=== PATIENT | female | born 1945 | race Caucasian/White ===

== ENCOUNTER 2018-06-12 16:34 | Inpatient (IN) ==
--- NOTE | 2018-06-12 17:32 | XRay Report ---
XR chest 1V portable CLINICAL HISTORY: ?illness COMPARISON STUDY: Chest radiograph May 12, 2018 p.m. FINDINGS: Calcified granuloma within the lingula is noted. Mild cardiomegaly is noted. There is no ev idence for pulmonary edema. Left basilar opacity is unchanged and favors atelectasis. The appearance of the chest is unchanged. IMPRESSION: No acute cardiopulmonary findings. No change in appearance of the chest. Electronically signed by: Layton Brady M.D. 06/12/2018 5:30 PM
[2018-06-12 18:36] LABS: Hematocrit (blood only) 27.6 % (37-47); Mean Corpuscular Hgb Conc 32.6 g/dL (32-36); Mean Corpuscular Volume 93.9 fL (80-100); Nucleated RBC # (auto) 0.18 K/uL (0-0); Nucleated RBC % (auto) 2.2 %; RDW Coefficient of Variation 18.8 % (11.5-14.5); RDW Standard Deviation 52.8 fL (36.4-46.3); Red Blood Count 2.94 M/uL (4.2-5.4); White Blood Count 7.82 K/uL (4.8-10.8)
[2018-06-12 19:02] LABS: Albumin Globulin Ratio 0.7 (0.9-2); Albumin Level 1.9 gm/dl (3.4-5.0); BUN Creatinine Ratio 21.2 (10-20); Bilirubin,Total 0.6 mg/dl (0.2-1); Calcium 5.7 mg/dl (8.5-10.1); Creatinine Clr Calc Pharmacy 44.5 ml/min; Est GFR (African American) 44.5; Est GFR (Non-African American) 38.4; Globulin 2.8 gm/dl (2.5-4.0); Potassium 3.4 mmol/L (3.5-5.1); Total Protein 4.7 gm/dl (6.4-8.2); Troponin I 0.13 ng/ml (0-0.045)
[2018-06-12 19:37] LABS: Beta-Hydroxybutyrate 12.01 mg/dl (0.2-2.81)
[2018-06-12 19:42] LABS: Mean Platelet Volume 9.6 fL (7.4-10.4); Platelet Count 71 K/uL (130-400)
[2018-06-12 19:43] LABS: Immature Granulocytes # (auto) 0.07 K/uL (0.00-0.02); Immature Granulocytes % (auto) 0.9 %; Lymphocytes # (auto) 0.32 K/uL (1.2-3.4); Lymphocytes % (auto) 4.1 %; Monocytes # (auto) 0.42 K/uL (0.11-0.59); Monocytes % (auto) 5.4 %; Neutrophils # (auto) 7.01 K/uL (1.4-6.5); Neutrophils % (auto) 89.6 %; Polychromasia 1+; Spherocytes 1+
--- NOTE | 2018-06-12 19:54 | Emergency Department Note ---
Entered by Brian Forrest acting as a scribe for History of Present Illness General Chief complaint: Weakness Stated complaint: WEAKNESS, MENTAL STATUS CHANGE, CELLULITIS IN LEG, Source: patient History of Present Illness Provider complaint: Weakness Onset (ago): day(s) Location: lower extremity Radiation: non-radiation Severity: moderate Pain Consistency: + constant Maximum Pain Intensity: 9 Quality: + burning Relieved By: + none Associated symptoms: + weakness The patient is a 72 year old female who presents to the Emergency Room with complaints of generalized weakness that started over the past couple of days. The patient reports a history of Leukemia and states that she had a blood transfusion three days ago and is regularly doing chemotherapy. She further reports that she had a sore throat, a cough, and is congested, but denies any episodes of vomiting, fevers, chest pain, or abdominal pain. The patient states that she has cellulitis of her right leg, but states that her left leg is also very tender and red. She is not sure she is on any antibiotics for this. Home Medications Home Medications Medication Instructions Recorded Confirmed Type atorvastatin 40 mg PO HS 04/05/18 06/12/18 History fluticasone-salmeterol [Advair 1 inh INHALATION BID 04/05/18 06/12/18 History Diskus] omeprazole 20 mg PO BID 04/05/18 06/12/18 History tramadol 50 mg PO Q6H PRN 04/05/18 06/12/18 History acyclovir 400 mg PO BID 06/09/18 06/12/18 History allopurinol 300 mg PO DAILY 06/09/18 06/12/18 History bumetanide 1 mg PO BID 06/09/18 06/12/18 History fluconazole 400 mg PO DAILY 06/09/18 06/12/18 History insulin aspart U-100 6 units SUBCUT TIDM 06/09/18 06/12/18 History insulin detemir U-100 [Levemir 14 units SUBCUT QPM 06/09/18 06/12/18 History FlexTouch U-100 Insuln] insulin detemir U-100 [Levemir 18 units SUBCUT QAM 06/09/18 06/12/18 History U-100 Insulin] metoprolol succinate 25 mg PO DAILY 06/09/18 06/12/18 History nitroglycerin [Nitrostat] 0.4 mg SUBLINGUAL DIRECTED PRN 06/09/18 06/12/18 History albuterol sulfate 2 puff INHALATION Q6H PRN 06/12/18 06/12/18 History dapsone 100 mg PO DAILY 06/12/18 06/12/18 History dasatinib [Sprycel] 70 mg PO BID 06/12/18 06/12/18 History dextrose [Glutose 15] 1 ea PO DIRECTED PRN 06/12/18 06/12/18 History escitalopram oxalate 5 mg PO DAILY 06/12/18 06/12/18 History ry-[id number] carb-vit K 1 tab PO DAILY 06/12/18 06/12/18 History [Women's Multivitamin] prednisone See Label Instructions .ROUTE 06/12/18 06/12/18 History .COMPLEX Allergies Allergy/AdvReac Type Severity Reaction Status Date / Time No Known Allergies Allergy Verified 06/12/18 17:53 Past Med/Surg History Medical History Ovarian cyst EKG abnormalities (Acute) Diabetes mellitus, type II (Chronic) GERD (gastroesophageal reflux disease) (Chronic) Diabetes mellitus Family History Other Family history non-contributory Social History Feels Safe at Home: Yes Smoking Status: Former smoker Preferred Language: Serbian Communication Ability: Effective Visual Impairment: No Limitations Hearing Ability: Normal Review of Systems See HPI for pertinent positives & negatives. and A total of 10 systems reviewed and were otherwise negative Physical Exam Vital Signs Vital Signs - 24 hr 06/12/18 16:32 06/12/18 16:41 06/12/18 16:46 Temperature 36.8 C Temperature Source Oral Sepsis Recent Fever Within 48 Hours No Sepsis New/Unexplained Change in Mental Status Yes Sepsis Action Taken by Nursing No Action Required Pulse Rate 85 80 91 H Pulse Rate [Apical] Respiratory Rate 20 18 21 Respiratory Effort / Characteristics Non-Labored Respiratory Depth Normal Respiratory Pattern Regular Blood Pressure 152/65 H 152/65 H Blood Pressure [Right Arm] Blood Pressure Mean 94 94 Blood Pressure Mean [Right Arm] Pulse Oximetry 96 96 96 Oxygen Delivery Method Nasal Cannula Oxygen Flow Rate 2 06/12/18 17:00 06/12/18 17:30 06/12/18 17:32 Temperature Temperature Source Sepsis Recent Fever Within 48 Hours Sepsis New/Unexplained Change in Mental Status Sepsis Action Taken by Nursing Pulse Rate 85 84 Pulse Rate [Apical] Respiratory Rate 17 18 Respiratory Effort / Characteristics Respiratory Depth Respiratory Pattern Blood Pressure Blood Pressure [Right Arm] Blood Pressure Mean Blood Pressure Mean [Right Arm] Pulse Oximetry 97 98 96 Oxygen Delivery Method Nasal Cannula Oxygen Flow Rate 2 06/12/18 18:00 06/12/18 18:30 06/12/18 19:02 Temperature Temperature Source Sepsis Recent Fever Within 48 Hours Sepsis New/Unexplained Change in Mental Status Sepsis Action Taken by Nursing Pulse Rate 81 85 Pulse Rate [Apical] 87 Respiratory Rate 14 17 Respiratory Effort / Characteristics Respiratory Depth Respiratory Pattern Blood Pressure Blood Pressure [Right Arm] 137/71 Blood Pressure Mean Blood Pressure Mean [Right Arm] 93 Pulse Oximetry Oxygen Delivery Method Oxygen Flow Rate Constitutional: Vital signs reviewed. Eyes: Pupils are equal round reactive to light. Conjunctiva are noninjected. ENT: Pharynx is clear without erythema or exudate. Mucous membranes are dry. Neck supple without meningeal signs. Respiratory: Clear to auscultation bilaterally. Breath sounds are equal bilaterally. Cardiovascular: Regular rate and rhythm. No rubs or gallops. GI: Soft, nondistended and nontender. Bowel sounds are present. Musculoskeletal: Erythema and increased warmth to the right lower extremity extending up to the knee. Mild erythema to the left lower extremity. Integumentary: No cyanosis. or jaundice. Cellulitis as above. Neurological: The patient is awake and alert. No focal deficits. Psychiatric: Normal affect. Not anxious appearing. Course 173: Past medical records reviewed. The patient was evaluated in room B8, and a complete history and physical examination were performed. 7: I discussed the test results with the patient. She denies any chest pain. She is agreeable with the treatment plan. 1908: I reviewed the patient's case with RAFFI Scott. She and her attending[facility] Shields[facility], will evaluate the patient for further management. Consultations Consultation #1: RAFFI Scott Time: 19:09 Administered Medications Discontinued Medications Sodium Chloride (Nss) 500 mls @ 999 mls/hr IV .Q31M STA Stop: 06/12/18 17:32 Last Admin: 06/12/18 18:08 Dose: Not Given Sodium Chloride (Nss) 500 mls @ 999 mls/hr IV .Q31M MOIRA Stop: 06/12/18 18:15 Last Infusion: 06/12/18 18:54 Dose: 0 mls/hr Admin: 06/12/18 18:27 Dose: 999 mls/hr Vancomycin HCl 2,000 mg/ (Sodium Chloride) 540 mls @ 200 mls/hr IV NOW ONE Stop: 06/12/18 20:31 Last Admin: 06/12/18 18:27 Dose: 200 mls/hr Calcium Gluconate 1,000 mg/ (Sodium Chloride) 60 mls @ 240 mls/hr IV NOW STA Stop: 06/12/18 19:20 Last Infusion: 06/12/18 19:49 Dose: 0 mls/hr Admin: 06/12/18 19:30 Dose: 240 mls/hr Medical Decision Making Differential Diagnosis Differential: Cellulitis, neutropenia, anemia, metabolic derangement, bactermia Medical Records Attestation: I reviewed the patient's medical records. Home Medications Current Medication List: was personally reviewed by me Laboratory Data Attestation: I reviewed the patient's lab results. Result diagrams: 06/12/18 17:55 06/12/18 17:55 Lab Results 06/12/18 06/12/18 06/12/18 Range/Units 17:55 17:55 18:15 WBC 7.82 (4.8-10.8) K/uL RBC 2.94 L (4.2-5.4) M/uL Hgb 9.0 L (12.0-16.0) g/dL Hct 27.6 L (37-47) % MCV 93.9 (80-100) fL MCH 30.6 (25-34) pg MCHC 32.6 (32-36) g/dL RDW Std Deviation 52.8 H (36.4-46.3) fL RDW Coeff of Yariel 18.8 H (11.5-14.5) % Plt Count 71 L (130-400) K/uL MPV 9.6 (7.4-10.4) fL Immature Gran % (Auto) 0.9 % Neut % (Auto) 89.6 % Lymph % (Auto) 4.1 % Esmeralda % (Auto) 5.4 % Eos % (Auto) 0.0 % Baso % (Auto) 0.0 % Immature Gran # (Auto) 0.07 H (0.00-0.02) K/uL Neut # (Auto) 7.01 H (1.4-6.5) K/uL Lymph # (Auto) 0.32 L (1.2-3.4) K/uL Esmeralda # (Auto) 0.42 (0.11-0.59) K/uL Eos # (Auto) 0.00 (0-0.5) K/uL Baso # (Auto) 0.00 (0-0.2) K/uL Absolute Nucleated RBC 0.18 H (0-0) K/uL Nucleated RBC % (auto) 2.2 % Polychromasia 1+ Spherocytes 1+ Sodium 139 (136-145) mmol/L Potassium 3.4 L (3.5-5.1) mmol/L Chloride 101 (98-107) mmol/L Carbon Dioxide 28 (21-32) mmol/L Anion Gap 10.0 (3-11) BUN 29 H (7-18) mg/dl Creatinine 1.38 H (0.6-1.2) mg/dl Est Cr Clr Drug Dosing 44.5 ml/min Est GFR ( Amer) 44.5 Est GFR (Non-Af Amer) 38.4 BUN/Creatinine Ratio 21.2 H (10-20) Glucose 315 H (70-99) mg/dl Lactate 1.3 (0.4-2.0) mmol/L Calcium 5.7 L* (8.5-10.1) mg/dl Total Bilirubin 0.6 (0.2-1) mg/dl AST 104 H (15-37) U/L ALT 145 H (12-78) U/L Alkaline Phosphatase 137 H (45-117) U/L Troponin I 0.130 H* (0-0.045) ng/ml Total Protein 4.7 L (6.4-8.2) gm/dl Albumin 1.9 L (3.4-5.0) gm/dl Globulin 2.8 (2.5-4.0) gm/dl Albumin/Globulin Ratio 0.7 L (0.9-2) Beta-Hydroxybutyric Acd 12.01 H (0.2-2.81) mg/dl Imaging Data Radiologist's Impression: Radiology results as stated below per my review and the radiologist's interpretation: XR chest 1V portable CLINICAL HISTORY: ?illness COMPARISON STUDY: Chest radiograph May 12, 2018 p.m. FINDINGS: Calcified granuloma within the lingula is noted. Mild cardiomegaly is noted. There is no evidence for pulmonary edema. Left basilar opacity is unchanged and favors atelectasis. The appearance of the chest is unchanged. IMPRESSION: No acute cardiopulmonary findings. No change in appearance of the chest. Electronically signed by: Layton Brady M.D. 06/12/2018 5:30 PM ECG Data Attestation: I personally reviewed and interpreted this ECG as follows: Indication: weakness Rate (beats per minute): 85 Rhythm: normal sinus Findings: + other (QTC is 461 miliseconds); no ST elevation Blood Pressure Blood Pressure Findings: Elevated blood pressure Blood Pressure Disposition: Referred to patients primary care provider MDM Narrative I did perform a limited focused review of portions of the patient's old chart on the electronic medical record. The patient was seen here in April for abdominal pain and was diagnosed with neutropenia, thrombocytopenia, splenomegaly, and right ovarian lesion. I did evaluate the patient as noted above. She is presenting with generalized weakness. She also has cellulitis to her legs. She has a history of a LL and is on chemotherapy. IV access was established. The patient was placed on a continuous rn cardiac. I did order and personally review the patient's 12- lead EKG and chest x-ray as described above. Her twelve-lead EKG does not demonstrate any acute ischemia. Her chest x-ray does not show a pneumonia. I did order and review the patient's blood work as noted in the electronic medical record. She is anemic and thrombocytopenic. She is not neutropenic. She does have a very low calcium and was given IV calcium. Creatinine is slightly elevated. Troponin is also elevated. She denies any chest pain or shortness of breath. I did order blood cultures and treated the patient with vancomycin IV. I did discuss the test results with the patient. I did discuss the case with the hospitalist and case operator. Impression & Plan Cellulitis of leg, right, Anemia, Cellulitis of left leg, Thrombocytopenia, Elevated troponin, Hypocalcemia Discharge Plan Visit Data Chief Complaint: Weakness Stated Complaint: WEAKNESS, MENTAL STATUS CHANGE, CELLULITIS IN LEG, ED Provider: Dillon Mccollum Discharge Problem: Cellulitis of leg, right, Anemia, Cellulitis of left leg, Thrombocytopenia, Elevated troponin, Hypocalcemia Forms Stand Alone Forms: [facility] Prescriptions Prescriptions: No Action atorvastatin 40 mg Tablet 40 mg PO HS RF: 0 fluticasone-salmeterol [Advair Diskus] 250-50 mcg/dose Blister With Device 1 inh INHALATION BID RF: 0 tramadol 50 mg Tablet 50 mg PO Q6H PRN (Reason: Pain) RF: 0 omeprazole 20 mg Capsule,Delayed Release(Dr/Ec) 20 mg PO BID RF: 0 acyclovir 400 mg Tablet 400 mg PO BID RF: 0 allopurinol 300 mg Tablet 300 mg PO DAILY RF: 0 fluconazole 200 mg Tablet 400 mg PO DAILY RF: 0 nitroglycerin [Nitrostat] 0.4 mg Tablet, Sublingual 0.4 mg Sublingual DIRECTED PRN (Reason: Chest Pain) RF: 0 bumetanide 1 mg Tablet 1 mg PO BID RF: 0 metoprolol succinate 25 mg Tablet Extended Release 24 Hr 25 mg PO DAILY RF: 0 insulin aspart U-100 100 unit/mL Cartridge 6 units SUBCUT TIDM RF: 0 insulin detemir U-100 [Levemir U-100 Insulin] 100 unit/mL Solution 18 units SUBCUT QAM RF: 0 insulin detemir U-100 [Levemir FlexTouch U-100 Insuln] 100 unit/mL (3 mL) Insulin Pen 14 units SUBCUT QPM RF: 0 dextrose [Glutose 15] 40 % Gel 1 ea PO DIRECTED PRN (Reason: Hypoglycemia) RF: 0 escitalopram oxalate 5 mg Tablet 5 mg PO DAILY RF: 0 tc-dl-xrod-FA-Ca carb-vit K [Women's Multivitamin] 18 mg iron-400 mcg-500 mg Tablet 1 tab PO DAILY RF: 0 dasatinib [Sprycel] 70 mg Tablet 70 mg PO BID RF: 0 prednisone 20 mg Tablet See Label Instructions .ROUTE .COMPLEX RF: 0 dapsone 100 mg Tablet 100 mg PO DAILY RF: 0 albuterol sulfate 90 mcg/actuation Hfa Aerosol Inhaler 2 puff INHALATION Q6H PRN (Reason: Shortness Of Breath) RF: 0 The scribe's documentation has been prepared under my direction and personally reviewed by me in its entirety. I confirm that the note above accurately reflects all work, treatment, procedures, and medical decision making performed by me.
--- NOTE | 2018-06-12 20:55 | History & Physical Report ---
Date of Service June 12, 2018 Assessment & Plan (1) Cellulitis, leg: -Admit to telemetry -Patient presenting to the ED from home for evaluation of generalized weakness, lower extremity redness -Recent events as outlined in HPI -In the ED, found to have some lower extremity redness, right greater than left -Afebrile, no leukocytosis or leukopenia -S/P Vanco in the ED however will change to daptomycin due to CKD and also add Zosyn due to immunocompromised state with ALL -No open areas or drainage to culture at this time -Blood cultures obtained in ED (2) Elevated troponin: -Troponin 0.130 -No reports of chest pain, EKG without acute ST changes -Continue cycle cardiac enzymes, consider further workup if significant elevation (3) Hypocalcemia: -Corrected calcium 7.4 -Received calcium 1 g IV in the ED -Follow calcium levels (4) Hypokalemia: -Potassium 3.4 -Replace, follow electrolytes -Noted normal magnesium (5) ALL (acute lymphoblastic leukemia): -Recent diagnosis [place] [facility]Started on prednisone and oral Sprycel -Was to start Rituxan and intrathecal chemotherapy treatments as an outpatient however due to transportation/safety issues the patient leaving home, these have not been started yet -Continue Sprycel and prednisone as per taper instructions (6) Anemia: (7) Thrombocytopenia: -Hgb 9.0, platelets 71 -Due to underlying ALL -Received PRBC transfusion on 06/09 -Monitor CBC daily (8) Diarrhea: -Check for C. difficile (9) DM type 2 (diabetes mellitus, type 2): -Hgb A1c 7.7 04/2018 -Continue Lantus and NovoLog per protocol while hospitalized (10) Leg edema: -During recent admission [facility] [place], patient developed anasarca and leg edema and was started on Bumex 1 mg twice daily -Patient with lower extremity edema on exam today however weight is noted to be down 9kg since 05/30 -Hypoalbuminemia and decreased mobility likely contributing to edema -For now will continue with Bumex 1 mg twice daily (11) CKD (chronic kidney disease), stage III: - baseline creat runs in the mid 1's - creat noted to be 1.3 today - continue to monitor, avoid nephrotoxic agents when able (12) Moderate COPD (chronic obstructive pulmonary disease): -No signs of acute exacerbation -Continue home inhalers (13) Hypertension: -BP controlled, continue metoprolol (14) Dyslipidemia: -hold statin while on daptomycin (15) GERD (gastroesophageal reflux disease): -Continue PPI (16) DVT prophylaxis: -SCDs due to anemia/thrombocytopenia (17) Discharge planning issues: -Patient currently enrolled in [facility] -Review of outpatient caseworker notes show that they have been attempting to get patient SNF placement however awaiting for assistance program for Sprycel to be approved -PT/OT evaluations, case management consult History of Present Illness Chief Complaint: Generalized weakness Primary Care Provider: Natalia Brambila 72-year-old female who presents to the ED for evaluation of generalized weakness. 1 month ago, patient was transferred from [facility] to [facility] for suspected onset of acute leukemia. 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 Treatment was started with prednisone and oral Sprycel. Patient was to also start Rituxan however due to transportation issues, those treatments have not been started yet. Also while at [facility], patient developed anasarca and FREDDY on CKD and was initially treated with a Lasix drip which was transitioned to oral Bumex at discharge. Olmesartan was discontinued. Patient also had a Klebsiella UTI which was treated with Levaquin. Per review of outpatient notes, patient appears to have been generally weak since arriving home. There have been several transportation/safety concerns about her leaving her home to get her Rituxan treatments, lab work, blood transfusions. Patient did receive blood transfusion at [facility] on 06/09. Patient was evaluated at home by a [facility] RN on 06/10. At that time, patient was noted to have some right lower extremity redness. Antibiotics were not started and reddened area was outlined for continued observation. Home health went to patient's home today to try to obtain lab work. Patient was unable to get out of bed and found to be incontinent of urine and stool. Patient was subsequently sent to the ED for further evaluation. At the time my exam, patient does not offer much history. She states, "I do not know why everyone keeps asking me so many questions I do not know the answers to." She is unclear what medication she is currently taking and states , "They got me someone to organize my pills and I take whatever is in my pillbox." She reports that she has been generally weak and unable to get up. She reports she developed diarrhea a couple of days ago. No abdominal pain, nausea, or vomiting. Appetite has been poor. She denies chest pain or shortness of breath. No lightheadedness, dizziness, diaphoresis, syncopal events. She denies fevers and chills. No urinary symptoms. In the ED, patient is found to have some redness to the bilateral lower extremities, right greater than left. She is hemodynamically stable. Labs demonstrate anemia and thrombocytopenia however improved from a recent baseline. Calcium 5.7 ( corrected to 7.4 for hypoalbuminemia). Troponin 0.130, EKG without acute ST changes. She was given calcium 1 g, IVF, IV Vanco. Allergies Allergy/AdvReac Type Severity Reaction Status Date / Time No Known Allergies Allergy Verified 06/12/18 17:53 Home Medications Home Medications Medication Instructions Recorded Confirmed Type atorvastatin 40 mg PO HS 04/05/18 06/12/18 History fluticasone-salmeterol [Advair 1 inh INHALATION BID 04/05/18 06/12/18 History Diskus] omeprazole 20 mg PO BID 04/05/18 06/12/18 History tramadol 50 mg PO Q6H PRN 04/05/18 06/12/18 History acyclovir 400 mg PO BID 06/09/18 06/12/18 History allopurinol 300 mg PO DAILY 06/09/18 06/12/18 History bumetanide 1 mg PO BID 06/09/18 06/12/18 History fluconazole 400 mg PO DAILY 06/09/18 06/12/18 History insulin aspart U-100 6 units SUBCUT TIDM 06/09/18 06/12/18 History insulin detemir U-100 [Levemir 14 units SUBCUT QPM 06/09/18 06/12/18 History FlexTouch U-100 Insuln] insulin detemir U-100 [Levemir 18 units SUBCUT QAM 06/09/18 06/12/18 History U-100 Insulin] metoprolol succinate 25 mg PO DAILY 06/09/18 06/12/18 History nitroglycerin [Nitrostat] 0.4 mg SUBLINGUAL DIRECTED PRN 06/09/18 06/12/18 History albuterol sulfate 2 puff INHALATION Q6H PRN 06/12/18 06/12/18 History dapsone 100 mg PO DAILY 06/12/18 06/12/18 History dasatinib [Sprycel] 70 mg PO BID 06/12/18 06/12/18 History dextrose [Glutose 15] 1 ea PO DIRECTED PRN 06/12/18 06/12/18 History escitalopram oxalate 5 mg PO DAILY 06/12/18 06/12/18 History mo-ab-bpyv-FA-Ca carb-vit K 1 tab PO DAILY 06/12/18 06/12/18 History [Women's Multivitamin] prednisone See Label Instructions .ROUTE 06/12/18 06/12/18 History .COMPLEX Past Med/Surg History Medical History Lumbar disc disease (Chronic) Tobacco use (Resolved) Depression (Chronic) Splenomegaly (Chronic) ALL (acute lymphoblastic leukemia) (Chronic) Osteoarthritis (Chronic) GERD (gastroesophageal reflux disease) (Chronic) Nocturnal hypoxia (Chronic) Moderate COPD (chronic obstructive pulmonary disease) (Chronic) CKD (chronic kidney disease), stage III (Chronic) Dyslipidemia (Chronic) Hypertension (Chronic) DM type 2 (diabetes mellitus, type 2) (Chronic) Diabetes mellitus, type II (Inactive) EKG abnormalities (Inactive) GERD (gastroesophageal reflux disease) (Inactive) Ovarian cyst (Inactive) Diabetes mellitus Surgical History H/O tubal ligation (Chronic) History of cholecystectomy (Chronic) Social History Current Living Situation: Alone Other Information That Helps Us Care for You: No Feels Safe at Home: Yes Smoking Status: Former smoker Hx Alcohol Use: No Hx Substance Use: No Beliefs That Will Affect Care: None Preferred Language: Bangladeshi Communication Ability: Effective Visual Impairment: No Limitations Hearing Ability: Normal Review of Systems Reviewed with patient however she does not offer much history Physical Exam 2 Vital Signs (Past 24 Hours): Last Vital Signs Temp 37.0 C 06/12/18 20:30 Pulse 92 H 06/12/18 20:30 Resp 20 06/12/18 20:30 BP 132/69 06/12/18 20:30 Pulse Ox 96 06/12/18 20:30 Constitutional: WD/WN, vitals as above Eyes: PERRL, conjunctivae normal, anicteric sclerae ENMT: external ear and nose normal, oropharynx normal Respiratory: normal respiratory effort; no respiratory distress Auscultation: + diminished lung sounds Cardiovascular: Rate/Rhythm: regular rate and regular rhythm Vessels: normal peripheral pulses Extremities: + edema (+3 pitting edema BLE) Gastrointestinal (Abdomen): normal bowel sounds, soft, nontender, no hepatosplenomegaly Musculoskeletal: Extremities: + abnormal strength (Patient generally weak ( strength 3-4/5) throughout all extremities), no cyanosis and no clubbing Skin: Mild redness noted to BLE, right greater than left; right lower extremity warm to touch Neurologic: PERRL, EOMI, accommodation nl, no face palsy, no dysarthria Psychiatric: Orientation: alert and oriented x 3 Affect: + depressed affect Insight: + poor insight Results & Data Laboratory Results Laboratory Last Values WBC 7.82 K/uL (4.8-10.8) 06/12/18 17:55 RBC 2.94 M/uL (4.2-5.4) L 06/12/18 17:55 Hgb 9.0 g/dL (12.0-16.0) L 06/12/18 17:55 Hct 27.6 % (37-47) L 06/12/18 17:55 MCV 93.9 fL (80-100) 06/12/18 17:55 MCH 30.6 pg (25-34) 06/12/18 17:55 MCHC 32.6 g/dL (32-36) 06/12/18 17:55 RDW Std Deviation 52.8 fL (36.4-46.3) H 06/12/18 17:55 RDW Coeff of Yariel 18.8 % (11.5-14.5) H 06/12/18 17:55 Plt Count 71 K/uL (130-400) L 06/12/18 17:55 MPV 9.6 fL (7.4-10.4) 06/12/18 17:55 Immature Gran % (Auto) 0.9 % 06/12/18 17:55 Neut % (Auto) 89.6 % 06/12/18 17:55 Lymph % (Auto) 4.1 % 06/12/18 17:55 [place] % (Auto) 5.4 % 06/12/18 17:55 Eos % (Auto) 0.0 % 06/12/18 17:55 Baso % (Auto) 0.0 % 06/12/18 17:55 Immature Gran # (Auto) 0.07 K/uL (0.00-0.02) H 06/12/18 17:55 Neut # (Auto) 7.01 K/uL (1.4-6.5) H 06/12/18 17:55 Lymph # (Auto) 0.32 K/uL (1.2-3.4) L 06/12/18 17:55 [place] # (Auto) 0.42 K/uL (0.11-0.59) 06/12/18 17:55 Eos # (Auto) 0.00 K/uL (0-0.5) 06/12/18 17:55 Baso # (Auto) 0.00 K/uL (0-0.2) 06/12/18 17:55 Absolute Nucleated RBC 0.18 K/uL (0-0) H 06/12/18 17:55 Nucleated RBC % (auto) 2.2 % 06/12/18 17:55 Polychromasia 1+ 06/12/18 17:55 Spherocytes 1+ 06/12/18 17:55 Sodium 139 mmol/L (136-145) 06/12/18 17:55 Potassium 3.4 mmol/L (3.5-5.1) L 06/12/18 17:55 Chloride 101 mmol/L (98-107) 06/12/18 17:55 Carbon Dioxide 28 mmol/L (21-32) 06/12/18 17:55 Anion Gap 10.0 (3-11) 06/12/18 17:55 BUN 29 mg/dl (7-18) H 06/12/18 17:55 Creatinine 1.38 mg/dl (0.6-1.2) H 06/12/18 17:55 Est Cr Clr Drug Dosing 44.5 ml/min 06/12/18 17:55 Est GFR ( Amer) 44.5 06/12/18 17:55 Est GFR (Non-Af Amer) 38.4 06/12/18 17:55 BUN/Creatinine Ratio 21.2 (10-20) H 06/12/18 17:55 Glucose 315 mg/dl (70-99) H 06/12/18 17:55 Lactate 1.3 mmol/L (0.4-2.0) 06/12/18 18:15 Calcium 5.7 mg/dl (8.5-10.1) L* 06/12/18 17:55 Phosphorus 3.9 mg/dl (2.5-4.9) 06/12/18 17:55 Magnesium 2.1 mg/dl (1.8-2.4) 06/12/18 17:55 Total Bilirubin 0.6 mg/dl (0.2-1) 06/12/18 17:55 AST 104 U/L (15-37) H 06/12/18 17:55 ALT 145 U/L (12-78) H 06/12/18 17:55 Alkaline Phosphatase 137 U/L (45-117) H 06/12/18 17:55 Troponin I 0.130 ng/ml (0-0.045) H* 06/12/18 17:55 Total Protein 4.7 gm/dl (6.4-8.2) L 06/12/18 17:55 Albumin 1.9 gm/dl (3.4-5.0) L 06/12/18 17:55 Globulin 2.8 gm/dl (2.5-4.0) 06/12/18 17:55 Albumin/Globulin Ratio 0.7 (0.9-2) L 06/12/18 17:55 Beta-Hydroxybutyric Acd 12.01 mg/dl (0.2-2.81) H 06/12/18 17:55 Diagnostic Findings CXR IMPRESSION: No acute cardiopulmonary findings. No change in appearance of the chest. Code Status & VTE Plan Code Status Patient is a full code as per my discussion with her. VTE Prophylaxis Plan VTE Prophylaxis will be ordered: Yes Supervising Physician Co-Signing Physician Notes Attending addendum The patient was seen and examined in the emergency room. She is a 72-year-old female with significant past medical history including acute lymphoblastic leukemia on oral chemotherapy, moderate COPD, chronic kidney disease stage III, hypertension, hyperlipidemia, diabetes type 2 and depression was brought into emergency room with profound weakness. She has noted to have bilateral leg swelling with redness and likely has bilateral leg cellulitis. Generally very weak and was not be able to give any information Denies any acute symptoms of pain, shortness of breath, nausea or vomiting or any neurological symptoms On examination Lying in bed comfortably Looked pale but without any acute distress Hemodynamically stable Chest-minimal bibasilar crackles. Occasional wheezing anteriorly Heart-S1-S2, regular Abdomen-soft, nontender, bowel sounds present [id number]+ edema bilaterally with increased redness and petechial hemorrhage with increased local temperature and mild tenderness. No definitive ulceration identified TEAM MEMBER-alert and awake. Moves all the limbs equally but generally very weak. Admission labs and imaging studies reviewed. Agree with assessment and plan as outlined above by Veda Shields
[2018-06-12 21:20] LABS: Magnesium 2.1 mg/dl (1.8-2.4); Phosphorus 3.9 mg/dl (2.5-4.9)
[2018-06-13 00:39] LABS: Appearance Urine Turbid (Clear); Bacteria Urine Automated Negative (Negative); Bilirubin Urine Negative (Negative); Blood Urine 3+ (Negative); Color Urine Dark Yellow; Epithelial Cell Urine Auto >30 /lpf (0-5); Glucose Urine UA 1+ (Negative); Ketones Urine 1+ (Negative); Leukocyte Esterase Urine Negative (Negative); Nitrite Urine Negative (Negative); Protein Urine 3+ (Negative); Specific Gravity Urine 1.023 (1.000-1.030); Urobilinogen Urine Negative (Negative); WBC Urine Automated >30 /hpf (0-5); pH Urine 5.5 (4.5-7.5)
[2018-06-13 07:16] LABS: Hematocrit (blood only) 24.3 % (37-47); Hemoglobin 7.7 g/dL (12.0-16.0); Mean Corpuscular Hgb Conc 31.7 g/dL (32-36); Mean Corpuscular Volume 95.3 fL (80-100); Nucleated RBC # (auto) 0.23 K/uL (0-0); Nucleated RBC % (auto) 5.2 %; RDW Coefficient of Variation 19.1 % (11.5-14.5); RDW Standard Deviation 54.7 fL (36.4-46.3); Red Blood Count 2.55 M/uL (4.2-5.4); White Blood Count 4.43 K/uL (4.8-10.8)
[2018-06-13 07:19] LABS: Mean Platelet Volume 9.2 fL (7.4-10.4); Platelet Count 68 K/uL (130-400)
[2018-06-13 07:40] LABS: Immature Granulocytes # (auto) 0.03 K/uL (0.00-0.02); Immature Granulocytes % (auto) 0.7 %; Lymphocytes % (auto) 4.5 %; Monocytes # (auto) 0.11 K/uL (0.11-0.59); Monocytes % (auto) 2.5 %; Neutrophils # (auto) 4.09 K/uL (1.4-6.5); Neutrophils % (auto) 92.3 %; Poikilocytosis Present; Spherocytes Occasional; Toxic Granulation 3+; Toxic Vacuolation 1+
[2018-06-13 08:02] LABS: BUN Creatinine Ratio 19.4 (10-20); Calcium 5.8 mg/dl (8.5-10.1); Creatinine Clr Calc Pharmacy 43.6 ml/min; Est GFR (African American) 43.3; Est GFR (Non-African American) 37.4; Potassium 3.5 mmol/L (3.5-5.1); Troponin I 0.15 ng/ml (0-0.045)
--- NOTE | 2018-06-13 18:37 | Hospitalist Progress Note ---
Date of Service June 13, 2018 Assessment & Plan (1) Cellulitis, leg: Cellulitis lower extremities due to cat scratches. Underlying immunosuppression. Blood cultures growing gram positive cocci. Continue Rx with IV daptomycin and piperacillin / tazobactam. Consult ID. (2) Elevated troponin: Serum troponin 0.130, 0.140, 0.150. No anginal symptoms. EKG shows NSR with nonspecific changes. Doubt acute coronary syndrome. Probable demand ischemia vs nonspecific elevation secondary to infection. (3) ALL (acute lymphoblastic leukemia): Recently diagnosed. Consult Heme / Onc. (4) Anemia: Due to ALL. Received transfusions last week. Hgb 9.0 --> 7.7. No gross GI bleeding. Check stools for OB. Transfusion management per Heme / Onc. (5) Thrombocytopenia: Platelet counts 71,000 --> 68,000. Underlying ALL. Follow. (6) CKD (chronic kidney disease), stage III: Baseline creatinine around 1 in April 2018, more recently running around 1.2 - 1.4. Follow. (7) Hypokalemia: K as low as 3.4. K today = 3.5. Follow, replace as necessary. (8) Hypocalcemia: Serum calcium 5.7. Associated albumin 1.9. Calculated corrected calcium = 7.46. Check ionized calcium. Follow. (9) Diarrhea: Having diarrhea at home. Has received recent antibioitcs. Check stool for C diff. (10) Hypertension: Continue metoprolol. Follow and titrate Rx. (11) Nocturnal hypoxia: Continue O2. (12) Moderate COPD (chronic obstructive pulmonary disease): Pulmonary status stable. (13) GERD (gastroesophageal reflux disease): Continue PPI. (14) DM type 2 (diabetes mellitus, type 2): Hgb A1C 7.7 05/13/18. FBS = 239. Lantus / NovoLog per protocol. (15) Dyslipidemia: Hold atorvastatin while receiving daptomycin. (16) DVT prophylaxis: No anticoagulants because of thormbocytopenia. SCD's. Ambulate. (17) Discharge planning issues: Disposition to be determined. Family Medicine follow-up with Dr. Natalia Brambila. Subjective Recheck for multiple problems. Admitted yesterday with cellulitis of lower extremities. Recently diagnosed acute lymphoblastic leukemia. Feels a little better today. No fever or chills. Legs feel better. She attributes scratches on legs to her kitten. No chest pain. No cough or SOB. No nausea, vomiting, diarrhea. No urinary symptoms. Physical Exam 2 Vital Signs (Past 24 Hours): Last Vital Signs Temp 36.8 C 06/13/18 15:07 Pulse 92 H 06/13/18 15:07 Resp 19 06/13/18 15:07 BP 142/72 H 06/13/18 15:07 Pulse Ox 91 06/13/18 15:07 Constitutional: no acute distress Respiratory: normal respiratory effort, lungs clear to auscultation Cardiovascular: Rate/Rhythm: regular rate and regular rhythm Vessels: no JVD Extremities: + edema (1+) Gastrointestinal (Abdomen): Inspection/Auscultation: normal bowel sounds Percussion/Palpation: abdomen soft; abdomen nontender Musculoskeletal: Extremities: no cyanosis Skin: + erythema (below knees, R > L, multiple excoriations on lower extremities) Psychiatric: Orientation: alert and oriented x 3 Affect: + depressed affect and + anxious affect Results & Data Laboratory Results Laboratory Results - last 24 hr 06/12/18 06/13/18 06/13/18 18:15 07:03 07:03 WBC 4.43 L RBC 2.55 L Hgb 7.7 L Hct 24.3 L MCV 95.3 MCH 30.2 MCHC 31.7 L RDW Std Deviation 54.7 H RDW Coeff of Yariel 19.1 H Plt Count 68 L MPV 9.2 Immature Gran % (Auto) 0.7 Neut % (Auto) 92.3 Lymph % (Auto) 4.5 [place] % (Auto) 2.5 Eos % (Auto) 0.0 Baso % (Auto) 0.0 Immature Gran # (Auto) 0.03 H Neut # (Auto) 4.09 Lymph # (Auto) 0.20 L [place] # (Auto) 0.11 Eos # (Auto) 0.00 Baso # (Auto) 0.00 Absolute Nucleated RBC 0.23 H Nucleated RBC % (auto) 5.2 Toxic Granulation 3+ Toxic Vacuolation 1+ Poikilocytosis Present Spherocytes Occasional Sodium 142 Potassium 3.5 Chloride 106 Carbon Dioxide 29 Anion Gap 7.0 BUN 27 H Creatinine 1.41 H Est Cr Clr Drug Dosing 43.6 Est GFR ( Amer) 43.3 Est GFR (Non-Af Amer) 37.4 BUN/Creatinine Ratio 19.4 Glucose 219 H POC Glucose Calcium 5.8 L* Troponin I 0.150 H* Bld Cult Staph aureus PCR Cancelled Blood Culture MRSA PCR Cancelled 06/13/18 06/13/18 06/13/18 07:22 11:29 16:20 WBC RBC Hgb Hct MCV MCH MCHC RDW Std Deviation RDW Coeff of Yariel Plt Count MPV Immature Gran % (Auto) Neut % (Auto) Lymph % (Auto) [place] % (Auto) Eos % (Auto) Baso % (Auto) Immature Gran # (Auto) Neut # (Auto) Lymph # (Auto) [place] # (Auto) Eos # (Auto) Baso # (Auto) Absolute Nucleated RBC Nucleated RBC % (auto) Toxic Granulation Toxic Vacuolation Poikilocytosis Spherocytes Sodium Potassium Chloride Carbon Dioxide Anion Gap BUN Creatinine Est Cr Clr Drug Dosing Est GFR ( Amer) Est GFR (Non-Af Amer) BUN/Creatinine Ratio Glucose POC Glucose 239 H 233 H 212 H Calcium Troponin I Bld Cult Staph aureus PCR Blood Culture MRSA PCR 06/13/18 20:33 WBC RBC Hgb Hct MCV MCH MCHC RDW Std Deviation RDW Coeff of Yariel Plt Count MPV Immature Gran % (Auto) Neut % (Auto) Lymph % (Auto) [place] % (Auto) Eos % (Auto) Baso % (Auto) Immature Gran # (Auto) Neut # (Auto) Lymph # (Auto) [place] # (Auto) Eos # (Auto) Baso # (Auto) Absolute Nucleated RBC Nucleated RBC % (auto) Toxic Granulation Toxic Vacuolation Poikilocytosis Spherocytes Sodium Potassium Chloride Carbon Dioxide Anion Gap BUN Creatinine Est Cr Clr Drug Dosing Est GFR ( Amer) Est GFR (Non-Af Amer) BUN/Creatinine Ratio Glucose POC Glucose 190 H Calcium Troponin I Bld Cult Staph aureus PCR Blood Culture MRSA PCR Microbiology 06/12/18 17:55 Blood Blood Culture - Preliminary Gram positive cocci 06/12/18 18:15 Blood Blood Culture - Preliminary Gram positive cocci
--- NOTE | 2018-06-13 20:04 | Oncology Consultation ---
Date of Consultation June 13, 2018 Imp: 72 year old female with Codington chromosome positive B-ALL recently admitted [place] [facility] and was started on sprycel and prednisone admitted to [facility] now with generalized weakness and cellulitis of bilateral LE ECOG PS currently is 3 to 4 she is on Broad spectrum antibiotics for cellulitis Continue prophylactic acyclovir and dapsone continue prednisone per protocol. I checked with pharmacy here and sprycel not available on formulary thrombocytopenia anemia due to her underlying B-ALL recommend obtain palliative care consult for goals of care given her poor performane would resume with her sprycel when available as she felt she was tolerating it well overall and counts improved. 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 At that time she was transferred to [facility] after peripheral blood showed blasts and thrombocytopenia and neutropenia. During that admission she had FREDDY and anasarca and required diuresis with lasix gtt and she was also treated for Klebsiella UTI. She has been on sprycel and prednisone She was planned to also receive rituximab but due to transportation issues this has not been started and she has not followed up in the office outpatient She received PRBC transfusion 06/09/18 for her anemia. Home Health went to draw her labs and found greta was unable to get out of bed and had incontinence and she was sent to ER for further evaluation. She is admitted with generalized weakness and redness of her legs and is being treated with zosyn and daptomycin for cellulitis of her legs She states that she has a cat that scratched her she has fatigue She denies nausea or vomiting or abd pain or fever or chills or night sweats she has decreased appetite she has occasional nonproductive cough she denies any headache or dizziness or chest pain or shortness of breath or fainting. She states that she had diarrhea occasionally at home, thinks she had it occur twice denies any black stool or blood in stool or urination complaints she has easy bruising she denies any swollen glands Allergies Allergy/AdvReac Type Severity Reaction Status Date / Time No Known Allergies Allergy Verified 06/12/18 17:53 Home Medications Home Medications Medication Instructions Recorded Confirmed Type atorvastatin 40 mg PO HS 04/05/18 06/12/18 History fluticasone-salmeterol [Advair 1 inh INHALATION BID 04/05/18 06/12/18 History Diskus] omeprazole 20 mg PO BID 04/05/18 06/12/18 History tramadol 50 mg PO Q6H PRN 04/05/18 06/12/18 History acyclovir 400 mg PO BID 06/09/18 06/12/18 History allopurinol 300 mg PO DAILY 06/09/18 06/12/18 History bumetanide 1 mg PO BID 06/09/18 06/12/18 History fluconazole 400 mg PO DAILY 06/09/18 06/12/18 History insulin aspart U-100 6 units SUBCUT TIDM 06/09/18 06/12/18 History insulin detemir U-100 [Levemir 14 units SUBCUT QPM 06/09/18 06/12/18 History FlexTouch U-100 Insuln] insulin detemir U-100 [Levemir 18 units SUBCUT QAM 06/09/18 06/12/18 History U-100 Insulin] metoprolol succinate 25 mg PO DAILY 06/09/18 06/12/18 History nitroglycerin [Nitrostat] 0.4 mg SUBLINGUAL DIRECTED PRN 06/09/18 06/12/18 History albuterol sulfate 2 puff INHALATION Q6H PRN 06/12/18 06/12/18 History dapsone 100 mg PO DAILY 06/12/18 06/12/18 History dasatinib [Sprycel] 70 mg PO BID 06/12/18 06/12/18 History dextrose [Glutose 15] 1 ea PO DIRECTED PRN 06/12/18 06/12/18 History escitalopram oxalate 5 mg PO DAILY 06/12/18 06/12/18 History [id number]-Ca carb-vit K 1 tab PO DAILY 06/12/18 06/12/18 History [Women's Multivitamin] prednisone See Label Instructions .ROUTE 06/12/18 06/12/18 History .COMPLEX Patient History Medical History Lumbar disc disease (Chronic) Tobacco use (Resolved) Depression (Chronic) Splenomegaly (Chronic) ALL (acute lymphoblastic leukemia) (Chronic) Osteoarthritis (Chronic) GERD (gastroesophageal reflux disease) (Chronic) Nocturnal hypoxia (Chronic) Moderate COPD (chronic obstructive pulmonary disease) (Chronic) CKD (chronic kidney disease), stage III (Chronic) Dyslipidemia (Chronic) Hypertension (Chronic) DM type 2 (diabetes mellitus, type 2) (Chronic) Diabetes mellitus, type II (Inactive) EKG abnormalities (Inactive) GERD (gastroesophageal reflux disease) (Inactive) Ovarian cyst (Inactive) Diabetes mellitus Surgical History H/O tubal ligation (Chronic) History of cholecystectomy (Chronic) Social History Current Living Situation: Alone Other Information That Helps Us Care for You: No Feels Safe at Home: Yes Smoking Status: Former smoker Hx Alcohol Use: No Hx Substance Use: No Beliefs That Will Affect Care: None Communication Ability: Effective Review of Systems as stated per HPI Physical Exam 2 Vital Signs (Past 24 Hours): Last Vital Signs Temp 36.8 C 06/13/18 15:07 Pulse 92 H 06/13/18 15:07 Resp 19 06/13/18 15:07 BP 142/72 H 06/13/18 15:07 Pulse Ox 91 06/13/18 15:07 Gen: chronically ill appearing female NAD HEENT: Anicteric mild pallor moist buccal mucosa, no thrush Neck: supple no palpable adenopathy Lungs: CTAB, NO WHEEZES OR RALES CV: S1 S2 RRR Abd: +BS soft NT/ND Ext: 2+ edema bilaterally skin: +erythema and warmth of bilateral lower extremity Results & Data Laboratory Results wbc 4.43 HGB 7.[address] 68 TROP 0.15 PT 10.3 PTT 26.7 D DIMER 620 Diagnostic Findings CXR: No acute cardiopulmonary findings. No change in appearance of the chest.
--- NOTE | 2018-06-13 21:34 | Ultrasound Report ---
BILATERAL LOWER EXTREMITY VENOUS DOPPLER HISTORY: bilateral edema, pain in calves COMPARISON STUDY: None. FINDINGS: There is normal compressibility, flow, and augmentation within the bilateral lower extremit y deep venous systems. IMPRESSION: No DVT within the right or left lower extremity. Electronically signed by: Ricardo Villanueva M.D. 06/13/2018 9:33 PM
[2018-06-14 07:06] LABS: Hematocrit (blood only) 22.8 % (37-47); Hemoglobin 7.3 g/dL (12.0-16.0); Mean Corpuscular Volume 95.8 fL (80-100); Nucleated RBC # (auto) 0.19 K/uL (0-0); Nucleated RBC % (auto) 3.5 %; RDW Coefficient of Variation 19.8 % (11.5-14.5); RDW Standard Deviation 56.6 fL (36.4-46.3); Red Blood Count 2.38 M/uL (4.2-5.4); White Blood Count 5.41 K/uL (4.8-10.8)
[2018-06-14 07:09] LABS: Mean Platelet Volume 10.9 fL (7.4-10.4); Platelet Count 86 K/uL (130-400)
[2018-06-14 07:31] LABS: Platelet Estimate Normal (Normal)
[2018-06-14 07:41] LABS: BUN Creatinine Ratio 18.7 (10-20); Calcium 6.2 mg/dl (8.5-10.1); Creatinine Clr Calc Pharmacy 53.7 ml/min; Est GFR (African American) 55.4; Est GFR (Non-African American) 47.8; Potassium 3.7 mmol/L (3.5-5.1)
--- NOTE | 2018-06-14 09:57 | Infectious Disease Consult ---
Date of Consultation June 14, 2018 Assessment & Plan (1) Gram positive sepsis: continue IV dapto for now, dopplers negative, can stop zosyn. repeat blood cultures. await final results. will need echo. (2) Cellulitis, leg: History of Present Illness Attending Physician: Angy Fontaine DO admitted with weakness and leg swelling with right leg erythema. denies fevers. recently diagnosed with ALL, no treatement yet. found to have leg cellulitis in ER, blood culture done, growing S. aureus and strep. on dapto and zoysn, toleraitng well, afebrile. wbc 5. UA with >30 wbc and >30 ep cells, urine culture pending. no f/c. denies cp, sob, cough, no n/v/d. Allergies Allergy/AdvReac Type Severity Reaction Status Date / Time No Known Allergies Allergy Verified 06/12/18 17:53 Home Medications Home Medications Medication Instructions Recorded Confirmed Type atorvastatin 40 mg PO HS 04/05/18 06/12/18 History fluticasone-salmeterol [Advair 1 inh INHALATION BID 04/05/18 06/12/18 History Diskus] omeprazole 20 mg PO BID 04/05/18 06/12/18 History tramadol 50 mg PO Q6H PRN 04/05/18 06/12/18 History acyclovir 400 mg PO BID 06/09/18 06/12/18 History allopurinol 300 mg PO DAILY 06/09/18 06/12/18 History bumetanide 1 mg PO BID 06/09/18 06/12/18 History fluconazole 400 mg PO DAILY 06/09/18 06/12/18 History insulin aspart U-100 6 units SUBCUT TIDM 06/09/18 06/12/18 History insulin detemir U-100 [Levemir 14 units SUBCUT QPM 06/09/18 06/12/18 History FlexTouch U-100 Insuln] insulin detemir U-100 [Levemir 18 units SUBCUT QAM 06/09/18 06/12/18 History U-100 Insulin] metoprolol succinate 25 mg PO DAILY 06/09/18 06/12/18 History nitroglycerin [Nitrostat] 0.4 mg SUBLINGUAL DIRECTED PRN 06/09/18 06/12/18 History albuterol sulfate 2 puff INHALATION Q6H PRN 06/12/18 06/12/18 History dapsone 100 mg PO DAILY 06/12/18 06/12/18 History dasatinib [Sprycel] 70 mg PO BID 06/12/18 06/12/18 History dextrose [Glutose 15] 1 ea PO DIRECTED PRN 06/12/18 06/12/18 History escitalopram oxalate 5 mg PO DAILY 06/12/18 06/12/18 History [id number]-hgoh-FA-Ca carb-vit K 1 tab PO DAILY 06/12/18 06/12/18 History [Women's Multivitamin] prednisone See Label Instructions .ROUTE 06/12/18 06/12/18 History .COMPLEX Patient History Medical History Lumbar disc disease (Chronic) Tobacco use (Resolved) Depression (Chronic) Splenomegaly (Chronic) ALL (acute lymphoblastic leukemia) (Chronic) Osteoarthritis (Chronic) GERD (gastroesophageal reflux disease) (Chronic) Nocturnal hypoxia (Chronic) Moderate COPD (chronic obstructive pulmonary disease) (Chronic) CKD (chronic kidney disease), stage III (Chronic) Dyslipidemia (Chronic) Hypertension (Chronic) DM type 2 (diabetes mellitus, type 2) (Chronic) Diabetes mellitus, type II (Inactive) EKG abnormalities (Inactive) GERD (gastroesophageal reflux disease) (Inactive) Ovarian cyst (Inactive) Diabetes mellitus Surgical History H/O tubal ligation (Chronic) History of cholecystectomy (Chronic) Social History Current Living Situation: Alone Other Information That Helps Us Care for You: No Feels Safe at Home: Yes Smoking Status: Former smoker Hx Alcohol Use: No Hx Substance Use: No Beliefs That Will Affect Care: None Communication Ability: Effective Review of Systems all remaining ros reviewed and are negative Physical Exam 2 Vital Signs (Past 24 Hours): Last Vital Signs Temp 36.7 C 06/14/18 07:07 Pulse 90 06/14/18 07:07 Resp 19 06/14/18 07:07 BP 158/83 H 06/14/18 07:07 Pulse Ox 91 06/14/18 07:07 Constitutional: WD/WN, vitals as above Eyes: PERRL, conjunctivae normal, anicteric sclerae ENMT: external ear and nose normal, oropharynx normal Neck: normal visual inspection Respiratory: normal respiratory effort, lungs clear to auscultation Cardiovascular: RRR, no murmur, no edema Gastrointestinal (Abdomen): normal bowel sounds, soft, nontender, no hepatosplenomegaly Musculoskeletal: no cyanosis or clubbing, extremities motor strength 5/5 Skin: no rashes, warm and dry rle warm to touch, min edema, + erythema, min tenderness Psychiatric: A+Ox3, euthymic affect Results & Data Laboratory Results Microbiology 06/12/18 17:55 Blood Blood Culture - Preliminary Staphylococcus aureus Streptococcus species 06/12/18 18:15 Blood Blood Culture - Preliminary Staphylococcus aureus
--- NOTE | 2018-06-14 12:27 | Hospitalist Progress Note ---
Date of Service June 14, 2018 Assessment & Plan (1) Bacteremia: Staph aureus and Strep growing in blood cultures. Multiple scratches on legs possible source. Empiric gram negative coverage with Zosyn stopped. Cont Dapto. Hold Lipitor while on Dapto. ID OK with this. Echo for am. No murmurs auscultated on exam. Afebrile. Repeat blood cultures drawn and pending. (2) Zoster: Localized vesicular raash on bilateral medial knees that is on an erythematous base. Painful. Covered with Optifoam and seen by wound care. Increase Acyclovir to TID and PCR was sent off. Contact precautions. ID aware. (3) Cellulitis, leg: Likely 2/2 multiple scratches on lower legs; pt has cats at home. Improved. Cont trt for bacteremia as above. (4) Elevated troponin: Serum troponin 0.130, 0.140, 0.150. No anginal symptoms. EKG shows NSR with nonspecific changes. Doubt acute coronary syndrome. Probable demand ischemia vs nonspecific elevation secondary to infection. No further workup at this time. (5) ALL (acute lymphoblastic leukemia): Recently diagnosed 4 weeks ago and patient is taking Sprycel. She has it at home with no way to get it to the hospital per her report, so currently cannot give to her as this is not on formulary. Appreciate Heme/Onc recs. (6) Anemia: Likely 2/2 ALL. Hb dropped to 7.3 and I consented her for blood for which she declined saying she did not want any more blood. No active bleeding. Cont to monitor CBC. Hematology aware. (7) Thrombocytopenia: Likely 2/2 ALL. Improved to 86K from 68K. Cont to monitor. (8) CKD (chronic kidney disease), stage III: Creatinine at baseline 1.1. Avoid nephrotoxic substances as able. (9) Hypocalcemia: check PTH, vit D, Phos. Potassium not elevated, therefore, likely not TLS but this was considered in setting of recently diagnosed ALL. Cont to monitor. Pt is asymptomatic. (10) Nocturnal hypoxia: Continue O2. (11) DM type 2 (diabetes mellitus, type 2): Hgb A1C 7.7 05/13/18. Inpatient FSG improved closer to goal. Cont Lantus / NovoLog per protocol. (12) Dyslipidemia: Hold atorvastatin while receiving daptomycin. (13) DVT prophylaxis: No anticoagulants because of thormbocytopenia. SCD's. Ambulate. Full Code Dispo-cont tele monitoring for now. Pt not interested in eating so will need to be reliably tolerating PO prior to discharge. May require several more days of inpatient treatment in setting of bacteremia and other illnesses. Angy Fontaine DO [facility] Hospitalist Subjective 72 yo F with recently diagnosed ALL presented to the hospital with generalized weakness. She doesn't feel better since admission and states that she is just tired and weak without any pointed symptoms of concern. She does have pain in the rash on her knees and states these have been there for at least a couple of weeks but she isn't certain. She denies fevers or chills and has no appetite for food but denies nausea or vomiting. She is not interested in having blood at this time after discussion. Physical Exam 2 Vital Signs (Past 24 Hours): Last Vital Signs Temp 36.9 C 06/14/18 12:18 Pulse 83 06/14/18 12:18 Resp 20 06/14/18 12:18 BP 137/70 06/14/18 12:18 Pulse Ox 90 06/14/18 12:18 CONSTITUTIONAL: WNWD, vitals as above, generally ill-appearing EYES: normal conjuctivae, no scleral icterus RESPIRATORY: clear to auscultation bilaterally, no crackles, rales or wheezes, normal respiratory effort CARDIOVASCULAR: regular rate and rhythm, S1 and 2 heard without murmurs, gallops or rubs, no JVD, no peripheral edema GASTROINTESTINAL: soft, nontender, nondistended, no guarding. MUSCULOSKELETAL: strength 5/5 throughout, head is normocephalic and atraumatic SKIN: warm and dry, multiple scratches on her lower legs bilaterally. Erythema in this area appears improved overall. Two separate areas on medial knees with vesicles on an erythematous base-localized. Well-healed scratches on upper back. NEUROLOGIC: CN 2-12 grossly intact, no sensory deficit, normal cognition, normal speech PSYCHIATRIC: alert cooperative and oriented to person, place and time. Depressed mood. Results & Data Laboratory Results Short CBC 06/14/18 Range/Units 06:54 WBC 5.41 (4.8-10.8) K/uL Hgb 7.3 L (12.0-16.0) g/dL Hct 22.8 L (37-47) % Plt Count 86 L (130-400) K/uL BMP 06/14/18 06:54 Sodium 141 Potassium 3.7 Chloride 105 Carbon Dioxide 29 BUN 22 H Creatinine 1.15 Glucose 202 H Calcium 6.2 L Medications Administered Current Inpatient Medications Acetaminophen (Tylenol) 650 mg PO Q4H PRN PRN Reason: Pain or Fever Stop: 07/12/18 20:31 Acyclovir (Zovirax) 400 mg PO TID [facility]; Protocol Stop: 06/24/18 13:59 Last Admin: 06/14/18 20:47 Dose: 400 mg Allopurinol (Zyloprim) 300 mg PO DAILY [facility] Stop: 07/13/18 08:59 Last Admin: 06/14/18 07:59 Dose: 300 mg Bumetanide (Bumex) 1 mg PO BID17 [facility] Stop: 07/12/18 21:26 Last Admin: 06/14/18 17:44 Dose: 1 mg Dapsone (Dapsone) 100 mg PO DAILY [facility] Stop: 07/13/18 08:59 Last Admin: 06/14/18 07:57 Dose: 100 mg Dextrose (Dextrose 50%) 25 - 50 ml IV UD PRN; Protocol PRN Reason: Hypoglycemia Protocol Stop: 07/12/18 21:26 Escitalopram Oxalate (Lexapro) 5 mg PO DAILY [facility] Stop: 07/13/18 08:59 Last Admin: 06/14/18 07:58 Dose: 5 mg Fluconazole (Diflucan) 400 mg PO DAILY [facility] Stop: 06/15/18 08:59 Last Admin: 06/14/18 07:57 Dose: 400 mg Glucagon (Glucagen) 1 mg SQ UD PRN; Protocol PRN Reason: Hypoglycemia Protocol Stop: 07/12/18 21:26 Glucose (Glucose 40%) 15 - 30 gm PO UD PRN; Protocol PRN Reason: Hypoglycemia Protocol Stop: 07/12/18 21:26 Glucose (Dex4 Glucose) 4 - 8 tabs PO UD PRN; Protocol PRN Reason: Hypoglycemia Protocol Stop: 07/12/18 21:26 Daptomycin 450 mg/ Syringe 9 mls @ 4.5 mls/min IV Q24H [facility]; Protocol Stop: 06/24/18 01:59 Last Admin: 06/15/18 02:04 Dose: 4.5 mls/min Insulin Aspart (Novolog Flexpen) 0 units SC ACHS [facility] Stop: 07/12/18 21:26 Last Admin: 06/14/18 21:00 Dose: 1 units Insulin Glargine (Lantus Solostar Pen) 10 - 20 units SC Q12 [facility] Stop: 07/12/18 21:26 Last Admin: 06/14/18 21:00 Dose: 15 units Metoprolol Succinate (Toprol Xl) 25 mg PO DAILY [facility] Stop: 07/13/18 08:59 Last Admin: 06/14/18 07:57 Dose: 25 mg Miscellaneous (Carbohydrates For Hypoglycemia) 15 - 30 gm PO UD PRN PRN Reason: Hypoglycemia Treatment Stop: 07/12/18 21:26 Miscellaneous (Order Awaiting Action) 1 ea N/A QS [facility] Stop: 07/13/18 00:00 Last Admin: 06/15/18 00:05 Dose: Not Given Miscellaneous Information (Consult) 1 ea N/A UD PRN PRN Reason: Consult Stop: 07/12/18 22:20 Multivitamins/Minerals (Multivitamin W/ Minerals Tab) 1 tab PO DAILY [facility] Stop: 07/13/18 08:59 Last Admin: 06/14/18 07:57 Dose: 1 tab Pantoprazole Sodium (Protonix) 40 mg PO BID [facility] Stop: 07/12/18 21:26 Last Admin: 06/14/18 20:47 Dose: 40 mg Prednisone (Prednisone) 20 mg PO BID [facility]; Taper Stop: 06/22/18 08:59 Last Admin: 06/14/18 20:46 Dose: 20 mg Fluticasone/Salmeterol (Advair Diskus 250/50) 1 puffs INH BID [facility] Stop: 07/12/18 21:26 Last Admin: 06/14/18 20:46 Dose: 1 puffs Tramadol HCl (Ultram) 50 mg PO Q6H PRN PRN Reason: Pain Stop: 07/12/18 21:26 Last Admin: 06/13/18 08:29 Dose: 50 mg
[2018-06-15 05:54] LABS: Hematocrit (blood only) 21.6 % (37-47); Hemoglobin 6.8 g/dL (12.0-16.0); Mean Corpuscular Hgb Conc 31.5 g/dL (32-36); Mean Platelet Volume 10.4 fL (7.4-10.4); Nucleated RBC # (auto) 0.32 K/uL (0-0); Nucleated RBC % (auto) 5.1 %; Platelet Count 107 K/uL (130-400); RDW Standard Deviation 57.6 fL (36.4-46.3); Red Blood Count 2.25 M/uL (4.2-5.4); White Blood Count 6.41 K/uL (4.8-10.8)
[2018-06-15 06:12] LABS: Anisocytosis Present; Basophils # (auto) 0.01 K/uL (0-0.2); Basophils % (auto) 0.2 %; Dohle Bodies 1+; Giant Platelets 1+; Immature Granulocytes # (auto) 0.07 K/uL (0.00-0.02); Immature Granulocytes % (auto) 1.1 %; Lymphocytes # (auto) 0.14 K/uL (1.2-3.4); Lymphocytes % (auto) 2.2 %; Monocytes # (auto) 0.27 K/uL (0.11-0.59); Monocytes % (auto) 4.2 %; Neutrophils # (auto) 5.92 K/uL (1.4-6.5); Neutrophils % (auto) 92.3 %; Spherocytes 2+; Toxic Granulation 1+
[2018-06-15 06:17] LABS: BUN Creatinine Ratio 16.2 (10-20); Calcium 6.3 mg/dl (8.5-10.1); Creatinine Clr Calc Pharmacy 65.7 ml/min; Est GFR (African American) 71.7; Est GFR (Non-African American) 61.8; Magnesium 1.9 mg/dl (1.8-2.4); Potassium 3.2 mmol/L (3.5-5.1)
[2018-06-15 06:32] LABS: Phosphorus 2.2 mg/dl (2.5-4.9)
--- NOTE | 2018-06-15 14:25 | Infectious Disease Progress Nt ---
Date of Service June 15, 2018 Assessment & Plan (1) Gram positive sepsis: continue IV dapto for now, follow repeat cultures. echo pending, repeat cultures pending. (2) Cellulitis, leg: Subjective pt afebrile. remains on dapto, initial blood cultures now growing MRSA and VRE, both sensitive to dapto. echo pending. repeat blood cultures pending. afebrile. wbc improved to 6.4, ANC remains below 500.tolerating abx, zosyn stopped yesterday Physical Exam 2 Vital Signs (Past 24 Hours): Last Vital Signs Temp 36.9 C 06/15/18 10:47 Pulse 93 H 06/15/18 10:47 Resp 22 06/15/18 10:47 BP 156/76 H 06/15/18 10:47 Pulse Ox 90 06/15/18 10:47 Results & Data Laboratory Results Microbiology 06/12/18 18:15 Blood Blood Culture - Final Staph aureus MRSA 06/12/18 17:55 Blood Blood Culture - Final Staph aureus MRSA Enterococcus faecium VRE 06/13/18 00:30 Urine,Clean Catch Urine Culture - Final Three types of organisms present, all low counts probable skin valentin. No further identifications or sensitivities to follow.
--- NOTE | 2018-06-15 23:12 | Discharge Summary ---
Date of Service June 15, 2018 Admission HPI Per Admitting Provider 72-year-old female who presents to the ED for evaluation of generalized weakness. 1 month ago, patient was transferred from [facility] to [facility] for suspected onset of acute leukemia. 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 Treatment was started with prednisone and oral Sprycel. Patient was to also start Rituxan however due to transportation issues, those treatments have not been started yet. Also [place] [facility] developed anasarca and FREDDY on CKD and was initially treated with a Lasix drip which was transitioned to oral Bumex at discharge. Olmesartan was discontinued. Patient also had a Klebsiella UTI which was treated with Levaquin. Per review of outpatient notes, patient appears to have been generally weak since arriving home. There have been several transportation/safety concerns about her leaving her home to get her Rituxan treatments, lab work, blood transfusions. Patient did receive blood transfusion at [facility] on 06/09. Patient was evaluated at home by a [facility] RN on 06/10. At that time, patient was noted to have some right lower extremity redness. Antibiotics were not started and reddened area was outlined for continued observation. Home health went to patient's home today to try to obtain lab work. Patient was unable to get out of bed and found to be incontinent of urine and stool. Patient was subsequently sent to the ED for further evaluation. At the time my exam, patient does not offer much history. She states, "I do not know why everyone keeps asking me so many questions I do not know the answers to." She is unclear what medication she is currently taking and states , "They got me someone to organize my pills and I take whatever is in my pillbox." She reports that she has been generally weak and unable to get up. She reports she developed diarrhea a couple of days ago. No abdominal pain, nausea, or vomiting. Appetite has been poor. She denies chest pain or shortness of breath. No lightheadedness, dizziness, diaphoresis, syncopal events. She denies fevers and chills. No urinary symptoms. In the ED, patient is found to have some redness to the bilateral lower extremities, right greater than left. She is hemodynamically stable. Labs demonstrate anemia and thrombocytopenia however improved from a recent baseline. Calcium 5.7 ( corrected to 7.4 for hypoalbuminemia). Troponin 0.130, EKG without acute ST changes. She was given calcium 1 g, IVF, IV Vanco. Discharge Data Allergies Allergy/AdvReac Type Severity Reaction Status Date / Time No Known Allergies Allergy Verified 06/12/18 17:53 Consultations 06/12/18 19:12 ED Decision to Admit Stat 06/12/18 21:27 Consult Case Management - Discharge Planning Routine 06/13/18 18:37 Consult Oncology Routine 06/14/18 05:22 Consult Infectious Diseases Routine Ordered Studies 06/13/18 20:22 US venous doppler LE Routine Hospital Course (1) Bacteremia: Staph aureus and Strep growing in blood cultures. Multiple scratches on legs possible source. Empiric gram negative coverage with Zosyn stopped. Cont Dapto. Hold Lipitor while on Dapto. ID OK with this. Echo for am. No murmurs auscultated on exam. Afebrile. Repeat blood cultures drawn and pending. (2) Zoster: Localized vesicular raash on bilateral medial knees that is on an erythematous base. Painful. Covered with Optifoam and seen by wound care. Increase Acyclovir to TID and PCR was sent off. Contact precautions. ID aware. (3) Cellulitis, leg: Likely 2/2 multiple scratches on lower legs; pt has cats at home. Improved. Cont trt for bacteremia as above. (4) Elevated troponin: Serum troponin 0.130, 0.140, 0.150. No anginal symptoms. EKG shows NSR with nonspecific changes. Doubt acute coronary syndrome. Probable demand ischemia vs nonspecific elevation secondary to infection. No further workup at this time. (5) ALL (acute lymphoblastic leukemia): Recently diagnosed 4 weeks ago and patient is taking Sprycel. She has it at home with no way to get it to the hospital per her report, so currently cannot give to her as this is not on formulary. Appreciate Heme/Onc recs. (6) Anemia: Likely 2/2 ALL. Hb dropped to 7.3 and I consented her for blood for which she declined saying she did not want any more blood. No active bleeding. Cont to monitor CBC. Hematology aware. (7) Thrombocytopenia: Likely 2/2 ALL. Improved to 86K from 68K. Cont to monitor. (8) CKD (chronic kidney disease), stage III: Creatinine at baseline 1.1. Avoid nephrotoxic substances as able. (9) Hypocalcemia: check PTH, vit D, Phos. Potassium not elevated, therefore, likely not TLS but this was considered in setting of recently diagnosed ALL. Cont to monitor. Pt is asymptomatic. (10) Nocturnal hypoxia: Continue O2. (11) DM type 2 (diabetes mellitus, type 2): Hgb A1C 7.7 05/13/18. Inpatient FSG improved closer to goal. Cont Lantus / NovoLog per protocol. (12) Dyslipidemia: Hold atorvastatin while receiving daptomycin. (13) DVT prophylaxis: No anticoagulants because of thormbocytopenia. SCD's. Ambulate. Full Code Dispo-cont tele monitoring for now. Pt not interested in eating so will need to be reliably tolerating PO prior to discharge. May require several more days of inpatient treatment in setting of bacteremia and other illnesses. [facility] Discharge Plan Discharge Items Reason For Visit: CELLULITIS GENERALIZED WEAKNESS Prescriptions: No Action atorvastatin 40 mg Tablet 40 mg PO HS RF: 0 fluticasone-salmeterol [Advair Diskus] 250-50 mcg/dose Blister With Device 1 inh INHALATION BID RF: 0 tramadol 50 mg Tablet 50 mg PO Q6H PRN (Reason: Pain) RF: 0 omeprazole 20 mg Capsule,Delayed Release(Dr/Ec) 20 mg PO BID RF: 0 acyclovir 400 mg Tablet 400 mg PO BID RF: 0 allopurinol 300 mg Tablet 300 mg PO DAILY RF: 0 fluconazole 200 mg Tablet 400 mg PO DAILY RF: 0 nitroglycerin [Nitrostat] 0.4 mg Tablet, Sublingual 0.4 mg Sublingual DIRECTED PRN (Reason: Chest Pain) RF: 0 bumetanide 1 mg Tablet 1 mg PO BID RF: 0 metoprolol succinate 25 mg Tablet Extended Release 24 Hr 25 mg PO DAILY RF: 0 insulin aspart U-100 100 unit/mL Cartridge 6 units SUBCUT TIDM RF: 0 insulin detemir U-100 [Levemir U-100 Insulin] 100 unit/mL Solution 18 units SUBCUT QAM RF: 0 insulin detemir U-100 [Levemir FlexTouch U-100 Insuln] 100 unit/mL (3 mL) Insulin Pen 14 units SUBCUT QPM RF: 0 dextrose [Glutose 15] 40 % Gel 1 ea PO DIRECTED PRN (Reason: Hypoglycemia) RF: 0 escitalopram oxalate 5 mg Tablet 5 mg PO DAILY RF: 0 [id number]-FA-Ca carb-vit K [Women's Multivitamin] 18 mg iron-400 mcg-500 mg Tablet 1 tab PO DAILY RF: 0 dasatinib [Sprycel] 70 mg Tablet 70 mg PO BID RF: 0 prednisone 20 mg Tablet See Label Instructions .ROUTE .COMPLEX RF: 0 dapsone 100 mg Tablet 100 mg PO DAILY RF: 0 albuterol sulfate 90 mcg/actuation Hfa Aerosol Inhaler 2 puff INHALATION Q6H PRN (Reason: Shortness Of Breath) RF: 0 Admission Data Admit Date/Time: 06/12/18 19:46 Attending Provider: Angy Fontaine Admit Provider: Munir Shields Primary Care Provider: Natalia Brambila Other Providers: Munir Shields ; Patricia Fraser ; Nadir Moe Service: Telemetry
--- NOTE | 2018-06-16 05:48 | Hospitalist Progress Note ---
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 Cont Dapto per ID recs. Repeat blood cultures pending. Multiple scratches on legs possible source. Empiric gram negative coverage with Zosyn stopped. Hold Lipitor while on Dapto. Echo pending. No murmurs auscultated on exam. Afebrile. (2) Anemia: Likely 2/2 ALL. Hb dropped to 6.8 today and she is now amenable to blood transfusions. 2 units ordered of irradiated blood. Repeat CBC in am. (3) Zoster: Localized vesicular raash on bilateral medial knees that is on an erythematous base. Painful but improved after acyclovir. Covered with Optifoam and seen by wound care. Increase Acyclovir to TID and PCR is pending. Contact precautions. ID aware. (4) Cellulitis, leg: Likely 2/2 multiple scratches on lower legs; pt has cats at home. Improved. Cont trt for bacteremia as above. (5) ALL (acute lymphoblastic leukemia): Recently diagnosed 4 weeks ago and patient is taking Sprycel. She has it at home with no way to get it to the hospital per her report, so currently cannot give to her as this is not on formulary. Appreciate Heme/Onc recs. (6) Thrombocytopenia: Continues to improve, now >100K (7) CKD (chronic kidney disease), stage III: Creatinine at baseline 1.1. Avoid nephrotoxic substances as able. (8) Hypocalcemia: elevated PTH, likely 2/2 hyperparathyroidism 2/2 vit D deficiency. Hypocalcemia also likely 2/2 vit D deficiency. She is asymptomatic (no tetany, muscle spasticity or numbness). Cont with vitamin D replacement and repeat labs as outpatient with PCP. (9) Vitamin D deficiency: (10) Nocturnal hypoxia: Continue O2 for this per home regimen. (11) DM type 2 (diabetes mellitus, type 2): Hgb A1C 7.7 05/13/18. Cont Lantus / NovoLog per protocol. (12) Dyslipidemia: Hold atorvastatin while receiving daptomycin. (13) Elevated troponin: Serum troponin 0.130, 0.140, 0.150. No anginal symptoms. EKG shows NSR with nonspecific changes. Doubt acute coronary syndrome. Probable demand ischemia vs nonspecific elevation secondary to infection. No further workup at this time. (14) DVT prophylaxis: No anticoagulants because of thormbocytopenia and anemia requiring transfusion. SCD's. Ambulate as tolerated with assist. Full Code Dispo-cont tele monitoring for now. Pt not interested in eating so will need to be reliably tolerating PO prior to discharge. May require several more days of inpatient treatment in setting of bacteremia and other illnesses. Angy Fontaine DO [facility] Hospitalist Subjective feels generally weak, afraid to walk because of weakness, SNF recommended per PT low appetite, some nausea, declines needing any further medications we discussed the importance of blood transfusions again, and she is now amenable to this. denies pain overall very overwhelmed with situation Physical Exam 2 Vital Signs (Past 24 Hours): Last Vital Signs Temp 36.5 C 06/16/18 03:47 Pulse 80 06/16/18 03:47 Resp 18 06/16/18 03:47 BP 174/85 H 06/16/18 03:47 Pulse Ox 94 06/16/18 03:47 CONSTITUTIONAL: WNWD, vitals as above, generally ill-appearing EYES: normal conjuctivae, no scleral icterus RESPIRATORY: clear to auscultation bilaterally, no crackles, rales or wheezes, normal respiratory effort CARDIOVASCULAR: regular rate and rhythm, S1 and 2 heard without murmurs, gallops or rubs, no JVD, no peripheral edema GASTROINTESTINAL: soft, nontender, nondistended, no guarding. MUSCULOSKELETAL: generalized weakness, head is normocephalic and atraumatic SKIN: warm and dry, multiple scratches on her lower legs bilaterally. Erythema in this area appears improved overall. Two separate areas on medial knees with vesicles on an erythematous base-localized, improved today. Well- healed scratches on upper back. NEUROLOGIC: CN 2-12 grossly intact, no sensory deficit, normal cognition, normal speech PSYCHIATRIC: alert cooperative and oriented to person, place and time. Depressed mood. Tearful Results & Data Laboratory Results Short CBC 06/15/18 Range/Units 05:31 WBC 6.41 (4.8-10.8) K/uL Hgb 6.8 L* (12.0-16.0) g/dL Hct 21.6 L (37-47) % Plt Count 107 L (130-400) K/uL BMP 06/15/18 05:31 Sodium 142 Potassium 3.2 L Chloride 106 Carbon Dioxide 29 BUN 15 Creatinine 0.93 Glucose 113 H Calcium 6.3 L Cardiac Enzymes 06/15/18 Range/Units 05:31 Total Creatine Kinase 1351 H (26-192) U/L Medications Administered Current Inpatient Medications Acetaminophen (Tylenol) 650 mg PO Q4H PRN PRN Reason: Pain or Fever Stop: 07/12/18 20:31 Acyclovir (Zovirax) 400 mg PO TID [facility]; Protocol Stop: 06/24/18 13:59 Last Admin: 06/15/18 21:36 Dose: 400 mg Allopurinol (Zyloprim) 300 mg PO DAILY [facility] Stop: 07/13/18 08:59 Last Admin: 06/15/18 09:02 Dose: 300 mg Bumetanide (Bumex) 1 mg PO BID17 [facility] Stop: 07/12/18 21:26 Last Admin: 06/15/18 17:18 Dose: Not Given Dapsone (Dapsone) 100 mg PO DAILY [facility] Stop: 07/13/18 08:59 Last Admin: 06/15/18 09:01 Dose: 100 mg Dextrose (Dextrose 50%) 25 - 50 ml IV UD PRN; Protocol PRN Reason: Hypoglycemia Protocol Stop: 07/12/18 21:26 Ergocalciferol (Vitamin D2) 50,000 units PO Q7D [facility] Stop: 07/15/18 11:59 Last Admin: 06/15/18 13:07 Dose: 50,000 units Escitalopram Oxalate (Lexapro) 5 mg PO DAILY [facility] Stop: 07/13/18 08:59 Last Admin: 06/15/18 09:02 Dose: 5 mg Glucagon (Glucagen) 1 mg SQ UD PRN; Protocol PRN Reason: Hypoglycemia Protocol Stop: 07/12/18 21:26 Glucose (Glucose 40%) 15 - 30 gm PO UD PRN; Protocol PRN Reason: Hypoglycemia Protocol Stop: 07/12/18 21:26 Glucose (Dex4 Glucose) 4 - 8 tabs PO UD PRN; Protocol PRN Reason: Hypoglycemia Protocol Stop: 07/12/18 21:26 Daptomycin 450 mg/ Syringe 9 mls @ 4.5 mls/min IV Q24H [facility]; Protocol Stop: 06/24/18 01:59 Last Admin: 06/16/18 02:22 Dose: 4.5 mls/min Sodium Chloride (Nss 250ml) 250 mls @ 15 mls/hr IV .[id number] PRN PRN Reason: For Transfusion Stop: 07/15/18 16:27 Insulin Aspart (Novolog Flexpen) 0 units SC ACHS [facility] Stop: 07/12/18 21:26 Last Admin: 06/15/18 21:35 Dose: 5 units Insulin Glargine (Lantus Solostar Pen) 10 - 20 units SC Q12 [facility] Stop: 07/12/18 21:26 Last Admin: 06/15/18 21:34 Dose: 20 units Metoprolol Succinate (Toprol Xl) 25 mg PO DAILY [facility] Stop: 07/13/18 08:59 Last Admin: 06/15/18 09:04 Dose: 25 mg Miscellaneous (Carbohydrates For Hypoglycemia) 15 - 30 gm PO UD PRN PRN Reason: Hypoglycemia Treatment Stop: 07/12/18 21:26 Miscellaneous (Order Awaiting Action) 1 ea N/A QS [facility] Stop: 07/13/18 00:00 Last Admin: 06/15/18 21:57 Dose: Not Given Miscellaneous Information (Consult) 1 ea N/A UD PRN PRN Reason: Consult Stop: 07/12/18 22:20 Multivitamins/Minerals (Multivitamin W/ Minerals Tab) 1 tab PO DAILY [facility] Stop: 07/13/18 08:59 Last Admin: 06/15/18 09:04 Dose: 1 tab Pantoprazole Sodium (Protonix) 40 mg PO BID [facility] Stop: 07/12/18 21:26 Last Admin: 06/15/18 21:36 Dose: 40 mg Prednisone (Prednisone) 20 mg PO BID [facility]; [facility]aper Stop: 06/22/18 08:59 Last Admin: 06/15/18 21:56 Dose: 20 mg Fluticasone/Salmeterol (Advair Diskus 250/50) 1 puffs INH BID [facility] Stop: 07/12/18 21:26 Last Admin: 06/15/18 21:34 Dose: 1 puffs Tramadol HCl (Ultram) 50 mg PO Q6H PRN PRN Reason: Pain Stop: 07/12/18 21:26 Last Admin: 06/13/18 08:29 Dose: 50 mg
[2018-06-16 07:21] LABS: Eosinophils # (auto) 0.04 K/uL (0-0.5); Eosinophils % (auto) 0.6 %; Hematocrit (blood only) 28.7 % (37-47); Hemoglobin 9.5 g/dL (12.0-16.0); Immature Granulocytes # (auto) 0.26 K/uL (0.00-0.02); Immature Granulocytes % (auto) 4.1 %; Lymphocytes % (auto) 7.9 %; Mean Corpuscular Hgb Conc 33.1 g/dL (32-36); Mean Corpuscular Volume 92.3 fL (80-100); Mean Platelet Volume 9.7 fL (7.4-10.4); Monocytes # (auto) 0.29 K/uL (0.11-0.59); Monocytes % (auto) 4.6 %; Neutrophils # (auto) 5.24 K/uL (1.4-6.5); Neutrophils % (auto) 82.8 %; Nucleated RBC # (auto) 0.29 K/uL (0-0); Nucleated RBC % (auto) 4.6 %; Platelet Count 114 K/uL (130-400); RDW Coefficient of Variation 19.6 % (11.5-14.5); RDW Standard Deviation 54.2 fL (36.4-46.3); Red Blood Count 3.11 M/uL (4.2-5.4); White Blood Count 6.33 K/uL (4.8-10.8)
[2018-06-16 07:50] LABS: Anisocytosis Present; Spherocytes 1+; Toxic Granulation 1+
[2018-06-16 08:04] LABS: BUN Creatinine Ratio 15.6 (10-20); Calcium 7.1 mg/dl (8.5-10.1); Creatinine Clr Calc Pharmacy 65.7 ml/min; Est GFR (African American) 71.7; Est GFR (Non-African American) 61.8; Potassium 4.2 mmol/L (3.5-5.1)
[2018-06-16 08:11] LABS: Phosphorus 1.5 mg/dl (2.5-4.9)
--- NOTE | 2018-06-16 10:34 | Infectious Disease Progress Nt ---
Date of Service June 16, 2018 Assessment & Plan (1) Gram positive sepsis: continue IV dapto repeat cutlures negative, echo negative. would suggest 21 days of IV abx. will need weekly cbc, cmp, esr, cpk while on abx. can follow with ID post d/c from hospital. (2) Cellulitis, leg: Subjective pt afebrile. remains on dapto, initial blood cultures now growing MRSA and VRE, both sensitive to dapto. echo done yesterday, negative. repeat blood cultures negative to date. afebrile. wbc improved to 6.4, ANC remains below 500.tolerating abx, c/o weakness in legs, denies pain, no f/c. no abd pain, no n /v/d, no cp,sob, cough. all remaining ros reviewed and are negative. Physical Exam 2 Vital Signs (Past 24 Hours): Last Vital Signs Temp 36.6 C 06/16/18 06:47 Pulse 78 06/16/18 06:47 Resp 20 06/16/18 06:47 BP 170/68 H 06/16/18 06:47 Pulse Ox 92 06/16/18 06:47 Constitutional: WD/WN, vitals as above Eyes: PERRL, conjunctivae normal, anicteric sclerae ENMT: external ear and nose normal, oropharynx normal Neck: normal visual inspection Respiratory: normal respiratory effort, lungs clear to auscultation Cardiovascular: RRR, no murmur, no edema Gastrointestinal (Abdomen): normal bowel sounds, soft, nontender, no hepatosplenomegaly Musculoskeletal: no cyanosis or clubbing, extremities motor strength 5/5 Skin: no rashes, warm and dry right leg erythema resolved, non tender b/l leg scratches healing, medial knee wounds with no drainage,no bleeding, tender to palpation Psychiatric: A+Ox3, euthymic affect Results & Data Laboratory Results Microbiology 06/14/18 10:38 Blood Blood Culture - Preliminary No growth to date. 06/14/18 10:16 Blood Blood Culture - Preliminary No growth to date. 06/12/18 18:15 Blood Blood Culture - Final Staph aureus MRSA 06/12/18 17:55 Blood Blood Culture - Final Staph aureus MRSA Enterococcus faecium VRE 06/13/18 00:30 Urine,Clean Catch Urine Culture - Final Three types of organisms present, all low counts probable skin valentin. No further identifications or sensitivities to follow.
--- NOTE | 2018-06-16 16:46 | Hospitalist Progress Note ---
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 Cont Dapto per ID recs. CK falling so continuing Dapto. Repeat in am. If doesn't improve much more, may have to consider alternative medication. Of note, she doesn't have myopathic symptoms, just generalized weakness. Repeat blood cultures negative to date. Will obtain PICC in next couple of days in preparation for long-term IV abx therapy. Multiple scratches on legs possible source. Empiric gram negative coverage with Zosyn stopped. Hold Lipitor while on Dapto. No evidence of mass or vegetation on TTE. No murmurs auscultated on exam. Afebrile. (2) Anemia: Likely 2/2 ALL. Improved after 2Units of blood appropriately to 9.5/29. Daily CBC (3) Zoster: Localized vesicular raash on bilateral medial knees that is on an erythematous base. Cont acyclovir, Pt denies pain. Covered with Optifoam and seen by wound care. Contact precautions. ID aware. (4) Cellulitis, leg: Likely 2/2 multiple scratches on lower legs; pt has cats at home. Improved. Cont trt for bacteremia as above. (5) ALL (acute lymphoblastic leukemia): Recently diagnosed 4 weeks ago and patient is taking Sprycel. She has it at home with no way to get it to the hospital per her report, so currently cannot give to her as this is not on formulary. Will start as soon as this is available. As patient will need this at SNF, also, and will be going straight there from here, I have asked Case Management to help work out a girls swimming coach or other way to get this here. (6) Thrombocytopenia: Continues to improve, now >100K (7) CKD (chronic kidney disease), stage III: Creatinine at baseline. Avoid nephrotoxic substances as able. (8) Secondary hyperparathyroidism: (9) Vitamin D deficiency: (10) Hypocalcemia: elevated PTH, likely 2/2 hyperparathyroidism 2/2 vit D deficiency. Hypocalcemia also likely 2/2 vit D deficiency. She is asymptomatic (no tetany, muscle spasticity or numbness). Cont with vitamin D replacement and repeat labs as outpatient with PCP. (11) Nocturnal hypoxia: Continue O2 for this per home regimen. (12) DM type 2 (diabetes mellitus, type 2): Hgb A1C 7.7 05/13/18. Cont Lantus / NovoLog per protocol. (13) Dyslipidemia: Hold atorvastatin while receiving daptomycin. CK falling so continuing Dapto. Repeat in am. If doesn't improve much more, may have to consider alternative medication. (14) Elevated troponin: Serum troponin 0.130, 0.140, 0.150. No anginal symptoms. EKG shows NSR with nonspecific changes. Doubt acute coronary syndrome. Probable demand ischemia vs nonspecific elevation secondary to infection. No further workup at this time. (15) Hypophosphatemia: Replace and repeat in am. (16) DVT prophylaxis: No anticoagulants because of thormbocytopenia and anemia requiring transfusion. SCD's. Ambulate as tolerated with assist. Full Code Dispo-cont tele monitoring for now. Pt not interested in eating so will need to be reliably tolerating PO prior to discharge. May require several more days of inpatient treatment in setting of bacteremia and other illnesses. Angy Fontaine, [facility] Hospitalist Subjective reports feeling poorly again today no areas of pain, just generalized severe weakness depressed mood cannot get Sprycel here no matter what afebrile doesn't report feeling better with the blood transfusion denies pain in knees Physical Exam 2 Vital Signs (Past 24 Hours): Last Vital Signs Temp 36.5 C 06/16/18 15:57 Pulse 90 06/16/18 15:57 Resp 20 06/16/18 15:57 BP 167/76 H 06/16/18 15:57 Pulse Ox 92 06/16/18 15:57 CONSTITUTIONAL: WNWD, vitals as above, generally weak-appearing EYES: normal conjuctivae, no scleral icterus RESPIRATORY: clear to auscultation bilaterally, no crackles, rales or wheezes, normal respiratory effort CARDIOVASCULAR: regular rate and rhythm, S1 and 2 heard without murmurs, gallops or rubs, no JVD, no peripheral edema GASTROINTESTINAL: soft, nontender, nondistended, no guarding. MUSCULOSKELETAL: generalized weakness, head is normocephalic and atraumatic SKIN: warm and dry, multiple scratches on her lower legs bilaterally. Erythema in this area appears improved overall. Two separate areas on medial knees with vesicles on an erythematous base-localized, improved today. Well- healed scratches on upper back. NEUROLOGIC: CN 2-12 grossly intact, no sensory deficit, normal cognition, normal speech PSYCHIATRIC: alert cooperative and oriented to person, place and time. Depressed mood. Results & Data Medications Administered Current Inpatient Medications Acetaminophen (Tylenol) 650 mg PO Q4H PRN PRN Reason: Pain or Fever Stop: 07/12/18 20:31 Acyclovir (Zovirax) 400 mg PO TID [facility]; Protocol Stop: 06/24/18 13:59 Last Admin: 06/16/18 21:37 Dose: 400 mg Allopurinol (Zyloprim) 300 mg PO DAILY [facility] Stop: 07/13/18 08:59 Last Admin: 06/16/18 08:24 Dose: 300 mg Amlodipine Besylate (Norvasc) 5 mg PO QPM [facility] Stop: 07/16/18 19:14 Last Admin: 06/16/18 21:36 Dose: 5 mg Bumetanide (Bumex) 1 mg PO BID17 [facility] Stop: 07/12/18 21:26 Last Admin: 06/16/18 18:40 Dose: Not Given Dapsone (Dapsone) 100 mg PO DAILY [facility] Stop: 07/13/18 08:59 Last Admin: 06/16/18 08:24 Dose: 100 mg Dextrose (Dextrose 50%) 25 - 50 ml IV UD PRN; Protocol PRN Reason: Hypoglycemia Protocol Stop: 07/12/18 21:26 Ergocalciferol (Vitamin D2) 50,000 units PO Q7D [facility] Stop: 07/15/18 11:59 Last Admin: 06/16/18 08:24 Dose: 50,000 units Escitalopram Oxalate (Lexapro) 5 mg PO DAILY [facility] Stop: 07/13/18 08:59 Last Admin: 06/16/18 08:24 Dose: 5 mg Glucagon (Glucagen) 1 mg SQ UD PRN; Protocol PRN Reason: Hypoglycemia Protocol Stop: 07/12/18 21:26 Glucose (Glucose 40%) 15 - 30 gm PO UD PRN; Protocol PRN Reason: Hypoglycemia Protocol Stop: 07/12/18 21:26 Glucose (Dex4 Glucose) 4 - 8 tabs PO UD PRN; Protocol PRN Reason: Hypoglycemia Protocol Stop: 07/12/18 21:26 Daptomycin 450 mg/ Syringe 9 mls @ 4.5 mls/min IV Q24H [facility]; Protocol Stop: 06/24/18 01:59 Last Admin: 06/17/18 01:42 Dose: 4.5 mls/min Sodium Chloride (Nss 250ml) 250 mls @ 15 mls/hr IV .[id number] PRN PRN Reason: For Transfusion Stop: 07/15/18 16:27 Insulin Aspart (Novolog Flexpen) 0 units SC ACHS [facility] Stop: 07/12/18 21:26 Last Admin: 06/16/18 21:36 Dose: 1 units Insulin Glargine (Lantus Solostar Pen) 10 - 20 units SC Q12 [facility] Stop: 07/12/18 21:26 Last Admin: 06/16/18 21:36 Dose: 15 units Metoprolol Succinate (Toprol Xl) 25 mg PO DAILY [facility] Stop: 07/13/18 08:59 Last Admin: 06/16/18 08:24 Dose: 25 mg Miscellaneous (Carbohydrates For Hypoglycemia) 15 - 30 gm PO UD PRN PRN Reason: Hypoglycemia Treatment Stop: 07/12/18 21:26 Miscellaneous (Order Awaiting Action) 1 ea N/A QS [facility] Stop: 07/13/18 00:00 Last Admin: 06/16/18 21:39 Dose: Not Given Miscellaneous Information (Consult) 1 ea N/A UD PRN PRN Reason: Consult Stop: 07/12/18 22:20 Multivitamins/Minerals (Multivitamin W/ Minerals Tab) 1 tab PO DAILY [facility] Stop: 07/13/18 08:59 Last Admin: 06/16/18 08:24 Dose: 1 tab Pantoprazole Sodium (Protonix) 40 mg PO BID [facility] Stop: 07/12/18 21:26 Last Admin: 06/16/18 21:37 Dose: 40 mg Prednisone (Prednisone) 20 mg PO DAILY [facility]; Taper Stop: 06/22/18 08:59 Last Admin: 06/16/18 08:24 Dose: 20 mg Fluticasone/Salmeterol (Advair Diskus 250/50) 1 puffs INH BID [facility] Stop: 07/12/18 21:26 Last Admin: 06/16/18 21:36 Dose: 1 puffs Tramadol HCl (Ultram) 50 mg PO Q6H PRN PRN Reason: Pain Stop: 07/12/18 21:26 Last Admin: 06/13/18 08:29 Dose: 50 mg
[2018-06-17 09:29] LABS: Basophils # (auto) 0.01 K/uL (0-0.2); Basophils % (auto) 0.1 %; Eosinophils # (auto) 0.03 K/uL (0-0.5); Eosinophils % (auto) 0.4 %; Hematocrit (blood only) 30.2 % (37-47); Hemoglobin 9.9 g/dL (12.0-16.0); Immature Granulocytes # (auto) 0.11 K/uL (0.00-0.02); Immature Granulocytes % (auto) 1.6 %; Lymphocytes # (auto) 0.47 K/uL (1.2-3.4); Lymphocytes % (auto) 6.7 %; Mean Corpuscular Hgb Conc 32.8 g/dL (32-36); Mean Corpuscular Volume 92.1 fL (80-100); Mean Platelet Volume 9.9 fL (7.4-10.4); Monocytes # (auto) 0.42 K/uL (0.11-0.59); Monocytes % (auto) 5.9 %; Neutrophils # (auto) 6.02 K/uL (1.4-6.5); Neutrophils % (auto) 85.3 %; Nucleated RBC # (auto) 0.24 K/uL (0-0); Nucleated RBC % (auto) 3.4 %; Platelet Count 132 K/uL (130-400); RDW Coefficient of Variation 19.8 % (11.5-14.5); RDW Standard Deviation 55.8 fL (36.4-46.3); Red Blood Count 3.28 M/uL (4.2-5.4); White Blood Count 7.06 K/uL (4.8-10.8)
[2018-06-17 10:03] LABS: Anisocytosis Present; Polychromasia 1+; Spherocytes Occasional
[2018-06-17 10:22] LABS: Albumin Level 2.1 gm/dl (3.4-5.0); BUN Creatinine Ratio 14.6 (10-20); Calcium 7.4 mg/dl (8.5-10.1); Creatinine Clr Calc Pharmacy 69.8 ml/min; Est GFR (African American) 78.8; Magnesium 1.8 mg/dl (1.8-2.4); Potassium 3.7 mmol/L (3.5-5.1)
[2018-06-17 10:25] LABS: Albumin Globulin Ratio 0.6 (0.9-2); Bilirubin,Total 0.8 mg/dl (0.2-1); Globulin 3.3 gm/dl (2.5-4.0); Phosphorus 2.1 mg/dl (2.5-4.9); Total Protein 5.4 gm/dl (6.4-8.2)
--- NOTE | 2018-06-17 11:41 | Hospitalist Progress Note ---
Date of Service June 17, 2018 Assessment & Plan (1) Hypertension: Persistently elevated despite Bumex and Toprol XL. Added Norvasc 10mg without much improvement. Adding lisinopril 10mg daily now. Cont to monitor closely. 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 Cont Dapto per ID recs. CK falling so continuing Dapto. Of note, she doesn't have myopathic symptoms, just generalized weakness. Repeat blood cultures negative to date. Will obtain PICC in next couple of days in preparation for long-term IV abx therapy. Multiple scratches on legs possible source. Empiric gram negative coverage with Zosyn stopped. Hold Lipitor while on Dapto. No evidence of mass or vegetation on TTE. No murmurs auscultated on exam. PAWAN not needed as blood cultures are not persistently positive and there is a likely source of infection with her leg wounds. Afebrile. (3) Anemia: Likely 2/2 chronic disease. Improved after 2 Units of blood appropriately. Cont to monitor. (4) Zoster: Localized vesicular rash on bilateral medial knees that is on an erythematous base. Cont acyclovir, Pt denies pain. Covered with Optifoam and seen by wound care. PCR pending. Contact precautions. ID aware. (5) Cellulitis, leg: Resolved, antibiotics for bacteremia above. (6) ALL (acute lymphoblastic leukemia): Recently diagnosed 4 weeks ago and patient is taking Sprycel. Will start as soon as this is available. (7) Thrombocytopenia: Continues to improve, now >100K (8) CKD (chronic kidney disease), stage III: Creatinine at baseline. Avoid nephrotoxic substances as able. (9) Secondary hyperparathyroidism: (10) Vitamin D deficiency: (11) Hypocalcemia: elevated PTH, likely 2/2 hyperparathyroidism 2/2 vit D deficiency. Hypocalcemia also likely 2/2 vit D deficiency. She is asymptomatic (no tetany, muscle spasticity or numbness). Cont with vitamin D replacement and repeat labs as outpatient with PCP. (12) Nocturnal hypoxia: Continue O2 for this per home regimen. (13) DM type 2 (diabetes mellitus, type 2): Hgb A1C 7.7 05/13/18. Cont Lantus / NovoLog per protocol. (14) Dyslipidemia: Hold atorvastatin while receiving daptomycin. (15) Elevated troponin: Serum troponin 0.130, 0.140, 0.150. No anginal symptoms. EKG shows NSR with nonspecific changes. Probable demand ischemia vs nonspecific elevation secondary to infection. No further workup at this time. (16) Hypophosphatemia: Resolved. (17) DVT prophylaxis: No anticoagulants 2/2 anemia. SCD's. Ambulate as tolerated with assist. Full Code Dispo-cont tele monitoring for now. Pt not interested in eating so will need to be reliably tolerating PO prior to discharge. May require several more days of inpatient treatment in setting of bacteremia and other illnesses. Angy Fontaine DO [facility] Hospitalist Subjective reports that she is not eating but then states she had a stack of pancakes this morning. Weakness is worsening, denies muscle pain or other pain No other specific symptoms at this time. Physical Exam 2 Vital Signs (Past 24 Hours): Last Vital Signs Temp 36.4 C L 06/17/18 10:33 Pulse 91 H 06/17/18 10:33 Resp 19 06/17/18 10:33 BP 152/81 H 06/17/18 10:33 Pulse Ox 93 06/17/18 10:33 CONSTITUTIONAL: WNWD, vitals as above, generally weak-appearing EYES: normal conjuctivae, no scleral icterus RESPIRATORY: clear to auscultation bilaterally, no crackles, rales or wheezes, normal respiratory effort CARDIOVASCULAR: regular rate and rhythm, S1 and 2 heard without murmurs, gallops or rubs, no JVD, no peripheral edema GASTROINTESTINAL: soft, nontender, nondistended, no guarding. MUSCULOSKELETAL: generalized weakness, head is normocephalic and atraumatic SKIN: warm and dry, multiple scratches on her lower legs bilaterally. Erythema in this area appears improved overall. Two separate areas on medial knees with vesicles on an erythematous base-localized, improved today. Well- healed scratches on upper back. NEUROLOGIC: CN 2-12 grossly intact, no sensory deficit, normal cognition, normal speech PSYCHIATRIC: alert cooperative and oriented to person, place and time. Depressed mood. Results & Data Laboratory Results Short CBC 06/17/18 Range/Units 09:18 WBC 7.06 (4.8-10.8) K/uL Hgb 9.9 L (12.0-16.0) g/dL Hct 30.2 L (37-47) % Plt Count 132 (130-400) K/uL BMP 06/17/18 09:18 Sodium 140 Potassium 3.7 Chloride 107 Carbon Dioxide 28 BUN 12 Creatinine 0.86 Glucose 160 H Calcium 7.4 L Cardiac Enzymes 06/17/18 Range/Units 09:18 Total Creatine Kinase 475 H (26-192) U/L Liver Function 06/17/18 Range/Units 09:18 Total Bilirubin 0.8 (0.2-1) mg/dl AST 53 H (15-37) U/L ALT 170 H (12-78) U/L Alkaline Phosphatase 132 H (45-117) U/L Albumin 2.1 L (3.4-5.0) gm/dl Medications Administered Current Inpatient Medications Acetaminophen (Tylenol) 650 mg PO Q4H PRN PRN Reason: Pain or Fever Stop: 07/12/18 20:31 Acyclovir (Zovirax) 400 mg PO TID [facility]; Protocol Stop: 06/24/18 13:59 Last Admin: 06/17/18 14:12 Dose: 400 mg Allopurinol (Zyloprim) 300 mg PO DAILY [facility] Stop: 07/13/18 08:59 Last Admin: 06/17/18 09:10 Dose: 300 mg Bumetanide (Bumex) 1 mg PO BID17 [facility] Stop: 07/12/18 21:26 Last Admin: 06/17/18 17:17 Dose: Not Given Dapsone (Dapsone) 100 mg PO DAILY [facility] Stop: 07/13/18 08:59 Last Admin: 06/17/18 09:09 Dose: 100 mg Dasatinib (Sprycel) 1 ea PO BID [facility] Stop: 07/17/18 13:59 Last Admin: 06/17/18 14:11 Dose: 1 ea Dextrose (Dextrose 50%) 25 - 50 ml IV UD PRN; Protocol PRN Reason: Hypoglycemia Protocol Stop: 07/12/18 21:26 Ergocalciferol (Vitamin D2) 50,000 units PO Q7D [facility] Stop: 07/15/18 11:59 Last Admin: 06/16/18 08:24 Dose: 50,000 units Escitalopram Oxalate (Lexapro) 5 mg PO DAILY [facility] Stop: 07/13/18 08:59 Last Admin: 06/17/18 09:09 Dose: 5 mg Glucagon (Glucagen) 1 mg SQ UD PRN; Protocol PRN Reason: Hypoglycemia Protocol Stop: 07/12/18 21:26 Glucose (Glucose 40%) 15 - 30 gm PO UD PRN; Protocol PRN Reason: Hypoglycemia Protocol Stop: 07/12/18 21:26 Glucose (Dex4 Glucose) 4 - 8 tabs PO UD PRN; Protocol PRN Reason: Hypoglycemia Protocol Stop: 07/12/18 21:26 Daptomycin 450 mg/ Syringe 9 mls @ 4.5 mls/min IV Q24H [facility]; Protocol Stop: 06/24/18 01:59 Last Admin: 06/17/18 01:42 Dose: 4.5 mls/min Sodium Chloride (Nss 250ml) 250 mls @ 15 mls/hr IV .[id number] PRN PRN Reason: For Transfusion Stop: 07/15/18 16:27 Insulin Aspart (Novolog Flexpen) 0 units SC ACHS [facility] Stop: 07/12/18 21:26 Last Admin: 06/17/18 17:16 Dose: 5 units Insulin Glargine (Lantus Solostar Pen) 10 - 20 units SC Q12 [facility] Stop: 07/12/18 21:26 Last Admin: 06/17/18 09:18 Dose: Not Given Lisinopril (Zestril) 10 mg PO QAM [facility] Stop: 07/17/18 17:59 Metoprolol Succinate (Toprol Xl) 25 mg PO DAILY [facility] Stop: 07/13/18 08:59 Last Admin: 06/17/18 09:10 Dose: 25 mg Miscellaneous (Carbohydrates For Hypoglycemia) 15 - 30 gm PO UD PRN PRN Reason: Hypoglycemia Treatment Stop: 07/12/18 21:26 Miscellaneous Information (Consult) 1 ea N/A UD PRN PRN Reason: Consult Stop: 07/12/18 22:20 Multivitamins/Minerals (Multivitamin W/ Minerals Tab) 1 tab PO DAILY [facility] Stop: 07/13/18 08:59 Last Admin: 06/17/18 09:18 Dose: Not Given Pantoprazole Sodium (Protonix) 40 mg PO BID [facility] Stop: 07/12/18 21:26 Last Admin: 06/17/18 09:09 Dose: 40 mg Prednisone (Prednisone) 20 mg PO DAILY [facility]; Taper Stop: 06/22/18 08:59 Last Admin: 06/17/18 09:09 Dose: 20 mg Fluticasone/Salmeterol (Advair Diskus 250/50) 1 puffs INH BID [facility] Stop: 07/12/18 21:26 Last Admin: 06/17/18 09:11 Dose: 14 puffs Tramadol HCl (Ultram) 50 mg PO Q6H PRN PRN Reason: Pain Stop: 07/12/18 21:26 Last Admin: 06/13/18 08:29 Dose: 50 mg
[2018-06-18 07:43] LABS: Hematocrit (blood only) 30.1 % (37-47); Hemoglobin 9.8 g/dL (12.0-16.0); Mean Corpuscular Hgb Conc 32.6 g/dL (32-36); Mean Corpuscular Volume 92.3 fL (80-100); Mean Platelet Volume 10.6 fL (7.4-10.4); Nucleated RBC # (auto) 0.19 K/uL (0-0); Nucleated RBC % (auto) 2.2 %; Platelet Count 141 K/uL (130-400); RDW Coefficient of Variation 19.4 % (11.5-14.5); RDW Standard Deviation 56.1 fL (36.4-46.3); Red Blood Count 3.26 M/uL (4.2-5.4); White Blood Count 8.61 K/uL (4.8-10.8)
[2018-06-18 08:16] LABS: Creatinine Clr Calc Pharmacy 71.4 ml/min; Est GFR (African American) 82.2; Est GFR (Non-African American) 70.9; Potassium 3.5 mmol/L (3.5-5.1)
--- NOTE | 2018-06-18 11:51 | Hospitalist Progress Note ---
Date of Service June 18, 2018 Assessment & Plan (1) Hypertension: Controlled with Bumex, Toprol XL and new addition of lisinopril 10mg PO daily. 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 Cont Dapto per ID recs. CK falling so continuing Dapto. Of note, she doesn't have myopathic symptoms, just generalized weakness. Repeat blood cultures negative to date. Plan for PICC tomorrow. Multiple scratches on legs possible source. Empiric gram negative coverage with Zosyn stopped. Hold Lipitor while on Dapto. No evidence of mass or vegetation on TTE. No murmurs auscultated on exam. PAWAN not needed as blood cultures are not persistently positive and there is a likely source of infection with her leg wounds. Afebrile. (3) Anemia: 2/2 chronic disease. Stable after 2 Units of blood. (4) Zoster: PCR was negative. Acyclovir was reduced down to her BID dosing for prophylaxis. Contact precautions were removed. (5) Cellulitis, leg: Resolved, antibiotics for bacteremia above. (6) ALL (acute lymphoblastic leukemia): Started her Sprycel yesterday and tolerating it. (7) Thrombocytopenia: Continues to improve, now >100K (8) CKD (chronic kidney disease), stage III: Creatinine at baseline. Avoid nephrotoxic substances as able. (9) Secondary hyperparathyroidism: (10) Vitamin D deficiency: (11) Hypocalcemia: elevated PTH, likely 2/2 hyperparathyroidism 2/2 vit D deficiency. Hypocalcemia also likely 2/2 vit D deficiency. She is asymptomatic (no tetany, muscle spasticity or numbness). Cont with vitamin D replacement and repeat labs as outpatient with PCP. (12) Nocturnal hypoxia: Continue O2 for this per home regimen. (13) DM type 2 (diabetes mellitus, type 2): Hgb A1C 7.7 05/13/18. Cont Lantus / NovoLog per protocol. (14) Dyslipidemia: Hold atorvastatin while receiving daptomycin. (15) Elevated troponin: Serum troponin 0.130, 0.140, 0.150. No anginal symptoms. EKG shows NSR with nonspecific changes. Probable demand ischemia vs nonspecific elevation secondary to infection. No further workup at this time. (16) Hypophosphatemia: Resolved. (17) DVT prophylaxis: No anticoagulants 2/2 anemia. SCD's. Ambulate as tolerated with assist. Full Code [facility]po[facility] Subjective persistently weak denies pain tolerating PO afebrile Physical Exam 2 Vital Signs (Past 24 Hours): Last Vital Signs Temp 36.9 C 06/18/18 11:31 Pulse 98 H 06/18/18 11:31 Resp 19 06/18/18 11:31 BP 128/72 06/18/18 11:31 Pulse Ox 92 06/18/18 11:31 CONSTITUTIONAL: WNWD, vitals as above, generally weak-appearing EYES: normal conjuctivae, no scleral icterus RESPIRATORY: clear to auscultation bilaterally, no crackles, rales or wheezes, normal respiratory effort CARDIOVASCULAR: regular rate and rhythm, S1 and 2 heard without murmurs, gallops or rubs, no JVD, no peripheral edema GASTROINTESTINAL: soft, nontender, nondistended, no guarding. MUSCULOSKELETAL: generalized weakness, head is normocephalic and atraumatic SKIN: warm and dry, multiple scratches on her lower legs bilaterally. Erythema in this area appears improved overall. Two separate areas on medial knees with vesicles on an erythematous base-localized, improved today. Well- healed scratches on upper back. NEUROLOGIC: CN 2-12 grossly intact, no sensory deficit, normal cognition, normal speech PSYCHIATRIC: alert cooperative and oriented to person, place and time. Depressed mood. Results & Data Laboratory Results Short CBC 06/18/18 Range/Units 07:24 WBC 8.61 (4.8-10.8) K/uL Hgb 9.8 L (12.0-16.0) g/dL Hct 30.1 L (37-47) % Plt Count 141 (130-400) K/uL BMP 06/18/18 07:24 Sodium 140 Potassium 3.5 Chloride 104 Carbon Dioxide 29 BUN 18 Creatinine 0.83 Glucose 123 H Calcium 8.0 L Cardiac Enzymes 06/18/18 Range/Units 07:24 Total Creatine Kinase 219 H (26-192) U/L Medications Administered Current Inpatient Medications Acetaminophen (Tylenol) 650 mg PO Q4H PRN PRN Reason: Pain or Fever Stop: 07/12/18 20:31 Acyclovir (Zovirax) 400 mg PO BID [facility]; Protocol Stop: 07/18/18 20:59 Allopurinol (Zyloprim) 300 mg PO DAILY [facility] Stop: 07/13/18 08:59 Last Admin: 06/18/18 09:13 Dose: 300 mg Bumetanide (Bumex) 1 mg PO BID17 [facility] Stop: 07/12/18 21:26 Last Admin: 06/18/18 17:25 Dose: 1 mg Dapsone (Dapsone) 100 mg PO DAILY [facility] Stop: 07/13/18 08:59 Last Admin: 06/18/18 12:25 Dose: 100 mg Dasatinib (Sprycel) 1 ea PO BID [facility] Stop: 07/17/18 13:59 Last Admin: 06/18/18 08:52 Dose: 1 ea Dextrose (Dextrose 50%) 25 - 50 ml IV UD PRN; Protocol PRN Reason: Hypoglycemia Protocol Stop: 07/12/18 21:26 Ergocalciferol (Vitamin D2) 50,000 units PO Q7D [facility] Stop: 07/15/18 11:59 Last Admin: 06/16/18 08:24 Dose: 50,000 units Escitalopram Oxalate (Lexapro) 5 mg PO DAILY [facility] Stop: 07/13/18 08:59 Last Admin: 06/18/18 09:14 Dose: 5 mg Glucagon (Glucagen) 1 mg SQ UD PRN; Protocol PRN Reason: Hypoglycemia Protocol Stop: 07/12/18 21:26 Glucose (Glucose 40%) 15 - 30 gm PO UD PRN; Protocol PRN Reason: Hypoglycemia Protocol Stop: 07/12/18 21:26 Glucose (Dex4 Glucose) 4 - 8 tabs PO UD PRN; Protocol PRN Reason: Hypoglycemia Protocol Stop: 07/12/18 21:26 Daptomycin 450 mg/ Syringe 9 mls @ 4.5 mls/min IV Q24H [facility]; Protocol Stop: 06/24/18 01:59 Last Admin: 06/18/18 01:18 Dose: 4.5 mls/min Sodium Chloride (Nss 250ml) 250 mls @ 15 mls/hr IV .[id number] PRN PRN Reason: For Transfusion Stop: 07/15/18 16:27 Insulin Aspart (Novolog Flexpen) 0 units SC ACHS [facility] Stop: 07/12/18 21:26 Last Admin: 06/18/18 17:56 Dose: 8 units Insulin Glargine (Lantus Solostar Pen) 10 - 20 units SC Q12 [facility] Stop: 07/12/18 21:26 Last Admin: 06/18/18 09:17 Dose: 10 units Lisinopril (Zestril) 10 mg PO QAM [facility] Stop: 07/17/18 17:59 Last Admin: 06/18/18 12:25 Dose: 10 mg Metoprolol Succinate (Toprol Xl) 25 mg PO DAILY [facility] Stop: 07/13/18 08:59 Last Admin: 06/18/18 09:13 Dose: 25 mg Miscellaneous (Carbohydrates For Hypoglycemia) 15 - 30 gm PO UD PRN PRN Reason: Hypoglycemia Treatment Stop: 07/12/18 21:26 Miscellaneous Information (Consult) 1 ea N/A UD PRN PRN Reason: Consult Stop: 07/12/18 22:20 Multivitamins/Minerals (Multivitamin W/ Minerals Tab) 1 tab PO DAILY [facility] Stop: 07/13/18 08:59 Last Admin: 06/18/18 12:35 Dose: Not Given Ondansetron HCl (Zofran) 4 mg IV Q8H PRN PRN Reason: Nausea Stop: 07/18/18 12:05 Pantoprazole Sodium (Protonix) 40 mg PO BID [facility] Stop: 07/12/18 21:26 Last Admin: 06/18/18 09:14 Dose: 40 mg Prednisone (Prednisone) 10 mg PO DAILY [facility]; Taper Stop: 06/22/18 08:59 Last Admin: 06/18/18 09:14 Dose: 10 mg Fluticasone/Salmeterol (Advair Diskus 250/50) 1 puffs INH BID [facility] Stop: 07/12/18 21:26 Last Admin: 06/18/18 09:16 Dose: 1 puffs Tramadol HCl (Ultram) 50 mg PO Q6H PRN PRN Reason: Pain Stop: 07/12/18 21:26 Last Admin: 06/13/18 08:29 Dose: 50 mg
[2018-06-19 09:02] LABS: Hematocrit (blood only) 28.1 % (37-47); Hemoglobin 9.1 g/dL (12.0-16.0); Mean Corpuscular Hgb Conc 32.4 g/dL (32-36); Mean Corpuscular Volume 93.7 fL (80-100); Mean Platelet Volume 9.6 fL (7.4-10.4); Nucleated RBC # (auto) 0.06 K/uL (0-0); Nucleated RBC % (auto) 0.9 %; Platelet Count 129 K/uL (130-400); RDW Coefficient of Variation 19.5 % (11.5-14.5); RDW Standard Deviation 56.4 fL (36.4-46.3)
[2018-06-19 09:41] LABS: BUN Creatinine Ratio 20.1 (10-20); Calcium 7.6 mg/dl (8.5-10.1); Creatinine Clr Calc Pharmacy 56.8 ml/min; Est GFR (African American) 62.6; Potassium 3.6 mmol/L (3.5-5.1)
--- NOTE | 2018-06-19 10:21 | Infectious Disease Progress Nt ---
Date of Service June 19, 2018 Assessment & Plan (1) Gram positive sepsis: continue IV dapto repeat cutlures negative, echo negative. CK much improved, agree with holding statin for duration of therapy. Abx options are very limited with MRSA and VRE growing from blood cultures. would prefer to continue with dapto if she continues to tolerated and CK remains in nml range. will continue to monitor. would suggest 21 days of IV abx. will need weekly cbc , cmp, esr, cpk while on abx. can follow with ID post d/c from hospital. (2) Cellulitis, leg: Subjective pt working with OT. tolerating abx. CK intially elevated, statin held, much improved today, 111. most recent cultures negative to date x 2, 06/14. afebrile. wbc 8.6, ANC last done on 06/17, improved. Initial cultures growing MRSA and VRE - resitant to pcn. Physical Exam 2 Vital Signs (Past 24 Hours): Last Vital Signs Temp 36.7 C 06/19/18 06:39 Pulse 99 H 06/19/18 06:39 Resp 17 06/19/18 06:39 BP 146/76 H 06/19/18 06:39 Pulse Ox 90 06/19/18 06:39 Results & Data Laboratory Results Microbiology 06/14/18 10:38 Blood Blood Culture - Preliminary No growth to date. 06/14/18 10:16 Blood Blood Culture - Preliminary No growth to date. 06/12/18 18:15 Blood Blood Culture - Final Staph aureus MRSA 06/12/18 17:55 Blood Blood Culture - Final Staph aureus MRSA Enterococcus faecium VRE 06/13/18 00:30 Urine,Clean Catch Urine Culture - Final Three types of organisms present, all low counts probable skin valentin. No further identifications or sensitivities to follow.
--- NOTE | 2018-06-19 11:47 | Hospitalist Progress Note ---
Date of Service June 19, 2018 Assessment & Plan (1) Hypertension: Controlled with Bumex, Toprol XL and new addition of lisinopril 10mg PO daily. 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 Cont Dapto per ID recs. Hold Lipitor while on Dapto. No evidence of mass or vegetation on TTE. No murmurs auscultated on exam. PAWAN not needed as blood cultures are not persistently positive and there is a likely source of infection with her leg wounds. Afebrile. (3) Anemia: 2/2 chronic disease. Stable after 2 Units of blood. (4) Cellulitis, leg: Resolved, antibiotics for bacteremia above. 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 (6) Thrombocytopenia: Remains >100K, no issues with bleeding (7) CKD (chronic kidney disease), stage III: Creatinine at baseline. Avoid nephrotoxic substances as able. (8) Secondary hyperparathyroidism: (9) Vitamin D deficiency: (10) Hypocalcemia: elevated PTH, likely 2/2 hyperparathyroidism 2/2 vit D deficiency. Hypocalcemia also likely 2/2 vit D deficiency. She is asymptomatic (no tetany, muscle spasticity or numbness). Cont with vitamin D replacement and repeat labs as outpatient with PCP. (11) Nocturnal hypoxia: Continue O2 for this per home regimen. (12) DM type 2 (diabetes mellitus, type 2): Hgb A1C 7.7 05/13/18. Cont Lantus / NovoLog per protocol. (13) Dyslipidemia: Hold atorvastatin while receiving daptomycin. (14) Elevated troponin: Serum troponin 0.130, 0.140, 0.150. No anginal symptoms. EKG shows NSR with nonspecific changes. Probable demand ischemia vs nonspecific elevation secondary to infection. No further workup at this time. (15) DVT prophylaxis: No anticoagulants 2/2 anemia. SCD's. Ambulate as tolerated with assist. Full Code Dispo-to SNF in 1-2 days pending Authorization DO [facility] Hospital[facility] Subjective Persistent weakness, no pain, tolerating p.o. Physical Exam Vital Signs (Past 24 Hours): Last Vital Signs Temp 36.7 C 06/19/18 06:39 Pulse 99 H 06/19/18 06:39 Resp 17 06/19/18 06:39 BP 146/76 H 06/19/18 06:39 Pulse Ox 90 06/19/18 06:39 CONSTITUTIONAL: WNWD, vitals as above, generally weak-appearing EYES: normal conjuctivae, no scleral icterus RESPIRATORY: clear to auscultation bilaterally, no crackles, rales or wheezes, normal respiratory effort CARDIOVASCULAR: regular rate and rhythm, S1 and 2 heard without murmurs, gallops or rubs, no JVD, no peripheral edema GASTROINTESTINAL: soft, nontender, nondistended, no guarding. MUSCULOSKELETAL: generalized weakness, head is normocephalic and atraumatic SKIN: warm and dry, multiple scratches on her lower legs bilaterally. Erythema resolved. Two separate areas on medial knees with vesicles on an erythematous base-localized, continues to improve. NEUROLOGIC: CN 2-12 grossly intact, no sensory deficit, normal cognition, normal speech PSYCHIATRIC: alert cooperative and oriented to person, place and time. Depressed mood. Results & Data Laboratory Results Short CBC 06/19/18 Range/Units 08:48 WBC 7.30 (4.8-10.8) K/uL Hgb 9.1 L (12.0-16.0) g/dL Hct 28.1 L (37-47) % Plt Count 129 L (130-400) K/uL BMP 06/19/18 08:48 Sodium 140 Potassium 3.6 Chloride 104 Carbon Dioxide 31 BUN 21 H Creatinine 1.04 Glucose 125 H Calcium 7.6 L Cardiac Enzymes 06/19/18 Range/Units 08:48 Total Creatine Kinase 111 (26-192) U/L Medications Administered Current Inpatient Medications Acetaminophen (Tylenol) 650 mg PO Q4H PRN PRN Reason: Pain or Fever Stop: 07/12/18 20:31 Acyclovir (Zovirax) 400 mg PO BID [facility]; Protocol Stop: 07/18/18 20:59 Last Admin: 06/19/18 07:53 Dose: 400 mg Allopurinol (Zyloprim) 300 mg PO DAILY [facility] Stop: 07/13/18 08:59 Last Admin: 06/19/18 07:54 Dose: 300 mg Bumetanide (Bumex) 1 mg PO BID17 [facility] Stop: 07/12/18 21:26 Last Admin: 06/19/18 07:53 Dose: 1 mg Dapsone (Dapsone) 100 mg PO DAILY [facility] Stop: 07/13/18 08:59 Last Admin: 06/19/18 07:55 Dose: 100 mg Dasatinib (Sprycel) 1 ea PO BID [facility] Stop: 07/17/18 13:59 Last Admin: 06/19/18 07:56 Dose: 1 ea Dextrose (Dextrose 50%) 25 - 50 ml IV UD PRN; Protocol PRN Reason: Hypoglycemia Protocol Stop: 07/12/18 21:26 Ergocalciferol (Vitamin D2) 50,000 units PO Q7D [facility] Stop: 07/15/18 11:59 Last Admin: 06/16/18 08:24 Dose: 50,000 units Escitalopram Oxalate (Lexapro) 5 mg PO DAILY [facility] Stop: 07/13/18 08:59 Last Admin: 06/19/18 07:54 Dose: 5 mg Glucagon (Glucagen) 1 mg SQ UD PRN; Protocol PRN Reason: Hypoglycemia Protocol Stop: 07/12/18 21:26 Glucose (Glucose 40%) 15 - 30 gm PO UD PRN; Protocol PRN Reason: Hypoglycemia Protocol Stop: 07/12/18 21:26 Glucose (Dex4 Glucose) 4 - 8 tabs PO UD PRN; Protocol PRN Reason: Hypoglycemia Protocol Stop: 07/12/18 21:26 Daptomycin 450 mg/ Syringe 9 mls @ 4.5 mls/min IV Q24H [facility]; Protocol Stop: 06/24/18 01:59 Last Admin: 06/19/18 02:35 Dose: 4.5 mls/min Sodium Chloride (Nss 250ml) 250 mls @ 15 mls/hr IV .[id number] PRN PRN Reason: For Transfusion Stop: 07/15/18 16:27 Insulin Aspart (Novolog Flexpen) 0 units SC ACHS [facility] Stop: 07/12/18 21:26 Last Admin: 06/19/18 08:38 Dose: 3 units Insulin Glargine (Lantus Solostar Pen) 10 - 20 units SC Q12 [facility] Stop: 07/12/18 21:26 Last Admin: 06/19/18 08:39 Dose: 10 units Lisinopril (Zestril) 10 mg PO QAM [facility] Stop: 07/17/18 17:59 Last Admin: 06/19/18 07:56 Dose: 10 mg Metoprolol Succinate (Toprol Xl) 25 mg PO DAILY [facility] Stop: 07/13/18 08:59 Last Admin: 06/19/18 07:53 Dose: 25 mg Miscellaneous (Carbohydrates For Hypoglycemia) 15 - 30 gm PO UD PRN PRN Reason: Hypoglycemia Treatment Stop: 07/12/18 21:26 Miscellaneous Information (Consult) 1 ea N/A UD PRN PRN Reason: Consult Stop: 07/12/18 22:20 Multivitamins/Minerals (Multivitamin W/ Minerals Tab) 1 tab PO DAILY [facility] Stop: 07/13/18 08:59 Last Admin: 06/19/18 07:53 Dose: 1 tab Ondansetron HCl (Zofran) 4 mg IV Q8H PRN PRN Reason: Nausea Stop: 07/18/18 12:05 Pantoprazole Sodium (Protonix) 40 mg PO BID [facility] Stop: 07/12/18 21:26 Last Admin: 06/19/18 07:51 Dose: 40 mg Prednisone (Prednisone) 10 mg PO DAILY [facility]; Taper Stop: 06/22/18 08:59 Last Admin: 06/19/18 07:51 Dose: 10 mg Fluticasone/Salmeterol (Advair Diskus 250/50) 1 puffs INH BID [facility] Stop: 07/12/18 21:26 Last Admin: 06/19/18 07:51 Dose: 1 puffs Tramadol HCl (Ultram) 50 mg PO Q6H PRN PRN Reason: Pain Stop: 07/12/18 21:26 Last Admin: 06/13/18 08:29 Dose: 50 mg
[2018-06-20 06:49] LABS: Hematocrit (blood only) 29.5 % (37-47); Hemoglobin 9.3 g/dL (12.0-16.0); Mean Corpuscular Hgb Conc 31.5 g/dL (32-36); Mean Corpuscular Volume 95.2 fL (80-100); Mean Platelet Volume 9.8 fL (7.4-10.4); Nucleated RBC # (auto) 0.09 K/uL (0-0); Nucleated RBC % (auto) 1.1 %; Platelet Count 131 K/uL (130-400); RDW Coefficient of Variation 19.7 % (11.5-14.5); RDW Standard Deviation 57.1 fL (36.4-46.3); White Blood Count 8.49 K/uL (4.8-10.8)
[2018-06-20 07:19] LABS: BUN Creatinine Ratio 23.9 (10-20); Calcium 7.8 mg/dl (8.5-10.1); Creatinine Clr Calc Pharmacy 59.7 ml/min; Est GFR (African American) 65.6; Est GFR (Non-African American) 56.6; Potassium 3.5 mmol/L (3.5-5.1)
--- NOTE | 2018-06-20 10:04 | Medical Student H&P ---
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 She developed bacteremia and is on IV daptomycin. Primary team consults the psychiatry service for "anxiety in dealing with health issues/medical treatment." Fabby is denying both feeling depressed or anxious at this time. The med rec appears to be incomplete and Fabby is not able to describe why she is on Lexapro. Before continuing this or making any changes, we will need to confirm that she actually takes it at home. 1. Anxiety - Acquire medical records from PCP to find out why she is on Lexapro. - She denies acute exacerbation of her symptoms, so no changes are recommended. 2. Pain from PICC line - Much of her agitation and inability to concentrate can be attributed to PICC line pain. - Consider voltaren gel for local pain relief. History & Physical Identifying Data FABBY LE is a 72-year-old F admitted on June 12, 2018 19:46 who currently lives in [facility]. 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 She developed bacteremia and is on IV daptomycin. Primary team consults the ps ychiatry service for "anxiety in dealing with health issues/medical treatment." When asked how Fabby is doing, she says "I just don't know." She says she was admitted for "weakness" and "couldn't walk." She says it's difficult to concentrate on our conversation because her PICC line is very "sore" and rates this pain as an 8/10. She denies feeling down, depressed, or anxious. Her sleep is "all over the place" because it's hard to fall and stay asleep. Her energy level is "really bad" and she can't concentrate due to pain. Her appetite is poor and her "legs weigh a ton." She denies anhedonia, guilt/worthlessness, suicidal ideation, homicidal ideation, hallucinations, panic attacks, or compulsive behaviors. She also denies ever having had a manic episode. She has no complaints other than pain at this time. Per the medical record, she takes Lexapro 5 mg at home. However, Fabby isn't sure when this was started or who prescribes it. When asked why she needs it, she says "because I need to be on it I guess." She says she saw a psychiatrist many years ago but can't remember who or when it was. She thinks it was "probably for feeling down." She has never had a psychiatric hospitalization. Allergies Allergy/AdvReac Type Severity Reaction Status Date / Time No Known Allergies Allergy Verified 06/12/18 17:53 Home Medications Home Medications Medication Instructions Recorded Confirmed Type atorvastatin 40 mg PO HS 04/05/18 06/12/18 History fluticasone-salmeterol [Advair 1 inh INHALATION BID 04/05/18 06/12/18 History Diskus] omeprazole 20 mg PO BID 04/05/18 06/12/18 History tramadol 50 mg PO Q6H PRN 04/05/18 06/12/18 History acyclovir 400 mg PO BID 06/09/18 06/12/18 History allopurinol 300 mg PO DAILY 06/09/18 06/12/18 History bumetanide 1 mg PO BID 06/09/18 06/12/18 History fluconazole 400 mg PO DAILY 06/09/18 06/12/18 History insulin aspart U-100 6 units SUBCUT TIDM 06/09/18 06/12/18 History insulin detemir U-100 [Levemir 14 units SUBCUT QPM 06/09/18 06/12/18 History FlexTouch U-100 Insuln] insulin detemir U-100 [Levemir 18 units SUBCUT QAM 06/09/18 06/12/18 History U-100 Insulin] metoprolol succinate 25 mg PO DAILY 06/09/18 06/12/18 History nitroglycerin [Nitrostat] 0.4 mg SUBLINGUAL DIRECTED PRN 06/09/18 06/12/18 History albuterol sulfate 2 puff INHALATION Q6H PRN 06/12/18 06/12/18 History dapsone 100 mg PO DAILY 06/12/18 06/12/18 History dasatinib [Sprycel] 70 mg PO BID 06/12/18 06/12/18 History dextrose [Glutose 15] 1 ea PO DIRECTED PRN 06/12/18 06/12/18 History escitalopram oxalate 5 mg PO DAILY 06/12/18 06/12/18 History [id number] carb-vit K 1 tab PO DAILY 06/12/18 06/12/18 History [Women's Multivitamin] prednisone See Label Instructions .ROUTE 06/12/18 06/12/18 History .COMPLEX Patient History Medical History Lumbar disc disease (Chronic) Tobacco use (Resolved) Depression (Chronic) Splenomegaly (Chronic) ALL (acute lymphoblastic leukemia) (Chronic) Osteoarthritis (Chronic) GERD (gastroesophageal reflux disease) (Chronic) Nocturnal hypoxia (Chronic) Moderate COPD (chronic obstructive pulmonary disease) (Chronic) CKD (chronic kidney disease), stage III (Chronic) Dyslipidemia (Chronic) Hypertension (Chronic) DM type 2 (diabetes mellitus, type 2) (Chronic) Diabetes mellitus, type II (Inactive) EKG abnormalities (Inactive) GERD (gastroesophageal reflux disease) (Inactive) Ovarian cyst (Inactive) Diabetes mellitus Surgical History H/O tubal ligation (Chronic) History of cholecystectomy (Chronic) Social History Current Living Situation: Alone Other Information That Helps Us Care for You: No Feels Safe at Home: Yes Smoking Status: Former smoker Hx Alcohol Use: No Hx Substance Use: No Beliefs That Will Affect Care: None Communication Ability: Effective Physical Exam Vital Signs (Past 24 Hours) Last Vital Signs Temp 36.7 C 06/20/18 07:54 Pulse 97 H 06/20/18 07:54 Resp 16 06/20/18 07:54 BP 139/74 06/20/18 07:54 Pulse Ox 93 06/20/18 07:54 Psychiatric Orientation: alert Apperance: + disheveled Eye Contact: + poor eye contact Motor Behavior: no abnormal motor movements Speech: normal rate/rhythm/volume of speech Affect: + constricted affect Mood: + irritable mood Thought Process: linear/logical thought process Thought Content: reality based without delusions; no hopelessness, no worthlessness and no guilt Suicidal Thoughts: denies suicidal thoughts Homicidal Thoughts: denies homicidal thoughts Hallucinations: no auditory hallucinations and no visual hallucinations Cognition: + recent memory not intact and + remote memory not intact Estimated Intelligence: average estimated intelligence Insight: + limited insight Judgement: good judgement Results & Data Medications Administered Acyclovir (Zovirax) 400 mg PO BID [facility]; Protocol Stop: 07/18/18 20:59 Last Admin: 06/20/18 08:31 Dose: 400 mg Admin: 06/19/18 21:03 Dose: 400 mg Admin: 06/19/18 07:53 Dose: 400 mg Admin: 06/18/18 21:30 Dose: 400 mg Allopurinol (Zyloprim) 300 mg PO DAILY [facility] Stop: 07/13/18 08:59 Last Admin: 06/20/18 08:31 Dose: 300 mg Admin: 06/19/18 07:54 Dose: 300 mg Admin: 06/18/18 09:13 Dose: 300 mg Admin: 06/17/18 09:10 Dose: 300 mg Admin: 06/16/18 08:24 Dose: 300 mg Admin: 06/15/18 09:02 Dose: 300 mg Admin: 06/14/18 07:59 Dose: 300 mg Admin: 06/13/18 08:21 Dose: 300 mg Bumetanide (Bumex) 1 mg PO BID17 [facility] Stop: 07/12/18 21:26 Last Admin: 06/20/18 08:33 Dose: 1 mg Admin: 06/19/18 17:45 Dose: 1 mg Admin: 06/19/18 07:53 Dose: 1 mg Admin: 06/18/18 17:25 Dose: 1 mg Admin: 06/18/18 09:16 Dose: 1 mg Admin: 06/17/18 17:17 Dose: Not Given Admin: 06/17/18 09:09 Dose: 1 mg Admin: 06/16/18 18:40 Dose: Not Given Admin: 06/16/18 08:24 Dose: 1 mg Admin: 06/15/18 17:18 Dose: Not Given Admin: 06/15/18 09:02 Dose: 1 mg Admin: 06/14/18 17:44 Dose: 1 mg Admin: 06/14/18 07:58 Dose: 1 mg Admin: 06/13/18 18:05 Dose: 1 mg Admin: 06/13/18 08:19 Dose: 1 mg Admin: 06/12/18 22:39 Dose: 1 mg Dapsone (Dapsone) 100 mg PO DAILY [facility] Stop: 07/13/18 08:59 Last Admin: 06/20/18 08:29 Dose: 100 mg Admin: 06/19/18 07:55 Dose: 100 mg Admin: 06/18/18 12:25 Dose: 100 mg Admin: 06/17/18 09:09 Dose: 100 mg Admin: 06/16/18 08:24 Dose: 100 mg Admin: 06/15/18 09:01 Dose: 100 mg Admin: 06/14/18 07:57 Dose: 100 mg Admin: 06/13/18 08:19 Dose: 100 mg Dasatinib (Sprycel) 1 ea PO BID [facility] Stop: 07/17/18 13:59 Last Admin: 06/20/18 08:28 Dose: 1 ea Admin: 06/19/18 21:02 Dose: 1 ea Admin: 06/19/18 07:56 Dose: 1 ea Admin: 06/18/18 21:29 Dose: 1 ea Admin: 06/18/18 08:52 Dose: 1 ea Admin: 06/17/18 21:18 Dose: 1 ea Admin: 06/17/18 14:11 Dose: 1 ea Ergocalciferol (Vitamin D2) 50,000 units PO Q7D [facility] Stop: 07/15/18 11:59 Last Admin: 06/16/18 08:24 Dose: 50,000 units Admin: 06/15/18 13:07 Dose: 50,000 units Escitalopram Oxalate (Lexapro) 5 mg PO DAILY [facility] Stop: 07/13/18 08:59 Last Admin: 06/20/18 08:31 Dose: 5 mg Admin: 06/19/18 07:54 Dose: 5 mg Admin: 06/18/18 09:14 Dose: 5 mg Admin: 06/17/18 09:09 Dose: 5 mg Admin: 06/16/18 08:24 Dose: 5 mg Admin: 06/15/18 09:02 Dose: 5 mg Admin: 06/14/18 07:58 Dose: 5 mg Admin: 06/13/18 08:19 Dose: 5 mg Heparin Sodium (Beef Lung) (Heparin Sod 10 Unit/Ml Flush) 5 ml FLUSH PRN PRN PRN Reason: Flush Stop: 07/20/18 00:16 Last Admin: 06/20/18 06:02 Dose: 5 ml Admin: 06/20/18 01:53 Dose: 5 ml Daptomycin 450 mg/ Syringe 9 mls @ 4.5 mls/min IV Q24H [facility]; Protocol Stop: 06/24/18 01:59 Last Admin: 06/20/18 01:52 Dose: 4.5 mls/min Admin: 06/19/18 02:35 Dose: 4.5 mls/min Admin: 06/18/18 01:18 Dose: 4.5 mls/min Admin: 06/17/18 01:42 Dose: 4.5 mls/min Admin: 06/16/18 02:22 Dose: 4.5 mls/min Admin: 06/15/18 02:04 Dose: 4.5 mls/min Admin: 06/14/18 03:31 Dose: 4.5 mls/min Insulin Aspart (Novolog Flexpen) 0 units SC ACHS [facility] Stop: 07/12/18 21:26 Last Admin: 06/20/18 08:36 Dose: 4 units Admin: 06/19/18 21:00 Dose: Not Given Admin: 06/19/18 17:43 Dose: Not Given Admin: 06/19/18 12:30 Dose: 5 units Admin: 06/19/18 08:38 Dose: 3 units Admin: 06/18/18 21:36 Dose: 8 units Admin: 06/18/18 17:56 Dose: 8 units Admin: 06/18/18 12:30 Dose: 7 units Admin: 06/18/18 09:16 Dose: 2 units Admin: 06/17/18 21:18 Dose: 2 units Admin: 06/17/18 17:16 Dose: 5 units Admin: 06/17/18 12:21 Dose: 7 units Admin: 06/17/18 09:17 Dose: Not Given Admin: 06/16/18 21:36 Dose: 1 units Admin: 06/16/18 18:39 Dose: 5 units Admin: 06/16/18 12:39 Dose: 9 units Admin: 06/16/18 08:25 Dose: 6 units Admin: 06/15/18 21:35 Dose: 5 units Admin: 06/15/18 17:19 Dose: 4 units Admin: 06/15/18 12:06 Dose: 3 units Admin: 06/15/18 08:59 Dose: 6 units Admin: 06/14/18 21:00 Dose: 1 units Admin: 06/14/18 17:44 Dose: 11 units Admin: 06/14/18 14:04 Dose: 9 units Admin: 06/14/18 08:00 Dose: 7 units Admin: 06/13/18 22:02 Dose: 3 units Admin: 06/13/18 18:06 Dose: 4 units Admin: 06/13/18 12:28 Dose: 5 units Admin: 06/13/18 08:24 Dose: 12 units Admin: 06/12/18 22:43 Dose: 10 units Insulin Glargine (Lantus Solostar Pen) 10 - 20 units SC Q12 [facility] Stop: 07/12/18 21:26 Last Admin: 06/20/18 08:36 Dose: 15 units Admin: 06/19/18 21:04 Dose: 10 units Admin: 06/19/18 08:39 Dose: 10 units Admin: 06/18/18 21:37 Dose: 20 units Admin: 06/18/18 09:17 Dose: 10 units Admin: 06/17/18 21:16 Dose: 15 units Admin: 06/17/18 09:18 Dose: Not Given Admin: 06/16/18 21:36 Dose: 15 units Admin: 06/16/18 08:25 Dose: 10 units Admin: 06/15/18 21:34 Dose: 20 units Admin: 06/15/18 09:00 Dose: 10 units Admin: 06/14/18 21:00 Dose: 15 units Admin: 06/14/18 08:00 Dose: 20 units Admin: 06/13/18 22:00 Dose: 20 units Admin: 06/13/18 08:21 Dose: 20 units Admin: 06/12/18 22:45 Dose: 20 units Lisinopril (Zestril) 10 mg PO QAM [facility] Stop: 07/17/18 17:59 Last Admin: 06/20/18 08:32 Dose: 10 mg Admin: 06/19/18 07:56 Dose: 10 mg Admin: 06/18/18 12:25 Dose: 10 mg Admin: 06/17/18 18:55 Dose: 10 mg Metoprolol Succinate (Toprol Xl) 25 mg PO DAILY [facility] Stop: 07/13/18 08:59 Last Admin: 06/20/18 08:31 Dose: 25 mg Admin: 06/19/18 07:53 Dose: 25 mg Admin: 06/18/18 09:13 Dose: 25 mg Admin: 06/17/18 09:10 Dose: 25 mg Admin: 06/16/18 08:24 Dose: 25 mg Admin: 06/15/18 09:04 Dose: 25 mg Admin: 06/14/18 07:57 Dose: 25 mg Admin: 06/13/18 08:21 Dose: 25 mg Multivitamins/Minerals (Multivitamin W/ Minerals Tab) 1 tab PO DAILY [facility] Stop: 07/13/18 08:59 Last Admin: 06/20/18 08:34 Dose: Not Given Admin: 06/19/18 07:53 Dose: 1 tab Admin: 06/18/18 12:35 Dose: Not Given Admin: 06/17/18 09:18 Dose: Not Given Admin: 06/16/18 08:24 Dose: 1 tab Admin: 06/15/18 09:04 Dose: 1 tab Admin: 06/14/18 07:57 Dose: 1 tab Admin: 06/13/18 08:21 Dose: 1 tab Ondansetron HCl (Zofran) 4 mg IV Q8H PRN PRN Reason: Nausea Stop: 07/18/18 12:05 Last Admin: 06/20/18 01:54 Dose: 4 mg Pantoprazole Sodium (Protonix) 40 mg PO BID [facility] Stop: 07/12/18 21:26 Last Admin: 06/20/18 08:31 Dose: 40 mg Admin: 06/19/18 21:03 Dose: 40 mg Admin: 06/19/18 07:51 Dose: 40 mg Admin: 06/18/18 21:32 Dose: 40 mg Admin: 06/18/18 09:14 Dose: 40 mg Admin: 06/17/18 21:18 Dose: 40 mg Admin: 06/17/18 09:09 Dose: 40 mg Admin: 06/16/18 21:37 Dose: 40 mg Admin: 06/16/18 08:25 Dose: 40 mg Admin: 06/15/18 21:36 Dose: 40 mg Admin: 06/15/18 09:04 Dose: 40 mg Admin: 06/14/18 20:47 Dose: 40 mg Admin: 06/14/18 07:58 Dose: 40 mg Admin: 06/13/18 22:04 Dose: 40 mg Admin: 06/13/18 08:19 Dose: 40 mg Admin: 06/12/18 22:41 Dose: 40 mg Prednisone (Prednisone) 5 mg PO DAILY [facility]; Taper Stop: 06/22/18 08:59 Last Admin: 06/20/18 08:34 Dose: 5 mg Admin: 06/19/18 07:51 Dose: 10 mg Admin: 06/18/18 09:14 Dose: 10 mg Admin: 06/17/18 09:09 Dose: 20 mg Admin: 06/16/18 08:24 Dose: 20 mg Admin: 06/15/18 21:56 Dose: 20 mg Admin: 06/15/18 09:05 Dose: 20 mg Admin: 06/14/18 20:46 Dose: 20 mg Admin: 06/14/18 07:57 Dose: 20 mg Admin: 06/13/18 22:04 Dose: 40 mg Admin: 06/13/18 08:18 Dose: 40 mg Fluticasone/Salmeterol (Advair Diskus 250/50) 1 puffs INH BID [facility] Stop: 07/12/18 21:26 Last Admin: 06/20/18 08:29 Dose: 1 puffs Admin: 06/19/18 21:01 Dose: 1 puffs Admin: 06/19/18 07:51 Dose: 1 puffs Admin: 06/18/18 21:31 Dose: 1 puffs Admin: 06/18/18 09:16 Dose: 1 puffs Admin: 06/17/18 21:16 Dose: 1 puffs Admin: 06/17/18 09:11 Dose: 14 puffs Admin: 06/16/18 21:36 Dose: 1 puffs Admin: 06/16/18 08:23 Dose: 1 puffs Admin: 06/15/18 21:34 Dose: 1 puffs Admin: 06/15/18 09:03 Dose: 1 puffs Admin: 06/14/18 20:46 Dose: 1 puffs Admin: 06/14/18 07:57 Dose: 1 puffs Admin: 06/13/18 21:59 Dose: 1 puffs Admin: 06/13/18 08:18 Dose: 1 puffs Admin: 06/12/18 22:40 Dose: 1 puffs Tramadol HCl (Ultram) 50 mg PO Q6H PRN PRN Reason: Pain Stop: 07/12/18 21:26 Last Admin: 06/20/18 04:41 Dose: 50 mg Admin: 06/13/18 08:29 Dose: 50 mg
--- NOTE | 2018-06-20 13:38 | Psychiatric Consultation ---
Date of Consultation June 20, 2018 Impression / Recommendations Impression 72-year-old woman admitted to the hospital with cellulitis, ALL and anemia. We are consulted to evaluate depression and anxiety. Unfortunately, the patient is denying that she is depressed, anxious or that they were in play prior to admission. She acknowledges that she is weak, needs to go to a fpc in order to get stronger. She has no idea who prescribes her antidepressant nor how long she has been on it. Unfortunately I do not see an intervention here however if the patient should request to talk to us again I would be happy to return. CPT Code 12911 Psych History Identifying Data 72-year-old woman admitted with lower extremity cellulitis, ALL and anemia. We are consulted to evaluate depression and anxiety in dealing with medical issues. Information is gathered from the patient and considered to be reliable. Chief Complaint "Oh I am okay honey". History of Present Illness This is a 72-year-old woman with multiple medical conditions including diabetes, chronic kidney disease stage III, COPD, hypertension, dyslipidemia, GERD and admitted with lower extremity cellulitis, ALL and anemia. As she has progressed over the last 8 days, she is more functional, able to get out of bed with some assistance and is able to use the bedside commode independently but generally is not yet able to take care of herself. It is being recommended she go to a snf facility. We have been consulted to evaluate depression and anxiety. At the time I see the patient, she is seated in her bed. She is alert and cooperative with the interview. She is completely oriented. I asked how long she has been on Lexapro 5 mg and she says that she does not know. She also does not know who started it. She denies that she has been depressed and denies that depression played any part in her poor condition at home prior to admission. She denies that she is a chronically anxious person and says she is not worrying now. She denies that she has suicidal thoughts at any point and denies any psychiatric needs at this time. Past Psychiatric History Previous Psych History: 1 previous episode of severe depression many years ago. She says that she was hospitalized somewhere in [place]. Outpatient Services: None History of Previous Suicide Attempt: No Past Medication Trials: Unknown Allergies Allergy/AdvReac Type Severity Reaction Status Date / Time No Known Allergies Allergy Verified 06/12/18 17:53 Home Medications Home Medications Medication Instructions Recorded Confirmed Type atorvastatin 40 mg PO HS 04/05/18 06/12/18 History fluticasone-salmeterol [Advair 1 inh INHALATION BID 04/05/18 06/12/18 History Diskus] omeprazole 20 mg PO BID 04/05/18 06/12/18 History tramadol 50 mg PO Q6H PRN 04/05/18 06/12/18 History acyclovir 400 mg PO BID 06/09/18 06/12/18 History allopurinol 300 mg PO DAILY 06/09/18 06/12/18 History bumetanide 1 mg PO BID 06/09/18 06/12/18 History fluconazole 400 mg PO DAILY 06/09/18 06/12/18 History insulin aspart U-100 6 units SUBCUT TIDM 06/09/18 06/12/18 History insulin detemir U-100 [Levemir 14 units SUBCUT QPM 06/09/18 06/12/18 History FlexTouch U-100 Insuln] insulin detemir U-100 [Levemir 18 units SUBCUT QAM 06/09/18 06/12/18 History U-100 Insulin] metoprolol succinate 25 mg PO DAILY 06/09/18 06/12/18 History nitroglycerin [Nitrostat] 0.4 mg SUBLINGUAL DIRECTED PRN 06/09/18 06/12/18 History albuterol sulfate 2 puff INHALATION Q6H PRN 06/12/18 06/12/18 History dapsone 100 mg PO DAILY 06/12/18 06/12/18 History dasatinib [Sprycel] 70 mg PO BID 06/12/18 06/12/18 History dextrose [Glutose 15] 1 ea PO DIRECTED PRN 06/12/18 06/12/18 History escitalopram oxalate 5 mg PO DAILY 06/12/18 06/12/18 History [id number] carb-vit K 1 tab PO DAILY 06/12/18 06/12/18 History [Women's Multivitamin] prednisone See Label Instructions .ROUTE 06/12/18 06/12/18 History .COMPLEX Family History Denies Substance Abuse History None Personal History Living Arrangements: Home Living Arrangements Comments: Lives alone in an apartment in [place] Employment Status: Retired Marital Status: Beliefs That Will Affect Care: None Patient History Medical History Lumbar disc disease (Chronic) Tobacco use (Resolved) Depression (Chronic) Splenomegaly (Chronic) ALL (acute lymphoblastic leukemia) (Chronic) Osteoarthritis (Chronic) GERD (gastroesophageal reflux disease) (Chronic) Nocturnal hypoxia (Chronic) Moderate COPD (chronic obstructive pulmonary disease) (Chronic) CKD (chronic kidney disease), stage III (Chronic) Dyslipidemia (Chronic) Hypertension (Chronic) DM type 2 (diabetes mellitus, type 2) (Chronic) Diabetes mellitus, type II (Inactive) EKG abnormalities (Inactive) GERD (gastroesophageal reflux disease) (Inactive) Ovarian cyst (Inactive) Diabetes mellitus Surgical History H/O tubal ligation (Chronic) History of cholecystectomy (Chronic) Social History Current Living Situation: Alone Other Information That Helps Us Care for You: No Feels Safe at Home: Yes Smoking Status: Former smoker Hx Alcohol Use: No Hx Substance Use: No Beliefs That Will Affect Care: None Communication Ability: Effective Physical Exam Psychiatric Orientation: alert, oriented x 3 and cooperative Apperance: appropriately dressed and appropriately groomed Eye Contact: + fair eye contact Motor Behavior: no abnormal motor movements Speech: normal rate/rhythm/volume of speech Affect: + blunted affect Mood: no depressed mood and no anxious mood Thought Process: goal directed thought process Thought Content: reality based without delusions Suicidal Thoughts: denies suicidal thoughts Homicidal Thoughts: denies homicidal thoughts Hallucinations: no auditory hallucinations and no visual hallucinations Cognition: attention grossly intact and language grossly intact Estimated Intelligence: consistent with education level Insight: + limited insight Judgement: + limited judgement Vital Signs (Past 24 Hours) Last Vital Signs Temp 36.6 C 06/20/18 11:19 Pulse 104 H 06/20/18 11:19 Resp 20 06/20/18 11:19 BP 117/70 06/20/18 11:19 Pulse Ox 90 06/20/18 11:19 Results & Data Medications Administered Acyclovir (Zovirax) 400 mg PO BID [facility]; Protocol Stop: 07/18/18 20:59 Last Admin: 06/20/18 08:31 Dose: 400 mg Admin: 06/19/18 21:03 Dose: 400 mg Admin: 06/19/18 07:53 Dose: 400 mg Admin: 06/18/18 21:30 Dose: 400 mg Allopurinol (Zyloprim) 300 mg PO DAILY [facility] Stop: 07/13/18 08:59 Last Admin: 06/20/18 08:31 Dose: 300 mg Admin: 06/19/18 07:54 Dose: 300 mg Admin: 06/18/18 09:13 Dose: 300 mg Admin: 06/17/18 09:10 Dose: 300 mg Admin: 06/16/18 08:24 Dose: 300 mg Admin: 06/15/18 09:02 Dose: 300 mg Admin: 06/14/18 07:59 Dose: 300 mg Admin: 06/13/18 08:21 Dose: 300 mg Bumetanide (Bumex) 1 mg PO BID17 [facility] Stop: 07/12/18 21:26 Last Admin: 06/20/18 08:33 Dose: 1 mg Admin: 06/19/18 17:45 Dose: 1 mg Admin: 06/19/18 07:53 Dose: 1 mg Admin: 06/18/18 17:25 Dose: 1 mg Admin: 06/18/18 09:16 Dose: 1 mg Admin: 06/17/18 17:17 Dose: Not Given Admin: 06/17/18 09:09 Dose: 1 mg Admin: 06/16/18 18:40 Dose: Not Given Admin: 06/16/18 08:24 Dose: 1 mg Admin: 06/15/18 17:18 Dose: Not Given Admin: 06/15/18 09:02 Dose: 1 mg Admin: 06/14/18 17:44 Dose: 1 mg Admin: 06/14/18 07:58 Dose: 1 mg Admin: 06/13/18 18:05 Dose: 1 mg Admin: 06/13/18 08:19 Dose: 1 mg Admin: 06/12/18 22:39 Dose: 1 mg Dapsone (Dapsone) 100 mg PO DAILY [facility] Stop: 07/13/18 08:59 Last Admin: 06/20/18 08:29 Dose: 100 mg Admin: 06/19/18 07:55 Dose: 100 mg Admin: 06/18/18 12:25 Dose: 100 mg Admin: 06/17/18 09:09 Dose: 100 mg Admin: 06/16/18 08:24 Dose: 100 mg Admin: 06/15/18 09:01 Dose: 100 mg Admin: 06/14/18 07:57 Dose: 100 mg Admin: 06/13/18 08:19 Dose: 100 mg Dasatinib (Sprycel) 1 ea PO BID [facility] Stop: 07/17/18 13:59 Last Admin: 06/20/18 08:28 Dose: 1 ea Admin: 06/19/18 21:02 Dose: 1 ea Admin: 06/19/18 07:56 Dose: 1 ea Admin: 06/18/18 21:29 Dose: 1 ea Admin: 06/18/18 08:52 Dose: 1 ea Admin: 06/17/18 21:18 Dose: 1 ea Admin: 06/17/18 14:11 Dose: 1 ea Ergocalciferol (Vitamin D2) 50,000 units PO Q7D [facility] Stop: 07/15/18 11:59 Last Admin: 06/16/18 08:24 Dose: 50,000 units Admin: 06/15/18 13:07 Dose: 50,000 units Escitalopram Oxalate (Lexapro) 5 mg PO DAILY [facility] Stop: 07/13/18 08:59 Last Admin: 06/20/18 08:31 Dose: 5 mg Admin: 06/19/18 07:54 Dose: 5 mg Admin: 06/18/18 09:14 Dose: 5 mg Admin: 06/17/18 09:09 Dose: 5 mg Admin: 06/16/18 08:24 Dose: 5 mg Admin: 06/15/18 09:02 Dose: 5 mg Admin: 06/14/18 07:58 Dose: 5 mg Admin: 06/13/18 08:19 Dose: 5 mg Heparin Sodium (Beef Lung) (Heparin Sod 10 Unit/Ml Flush) 5 ml FLUSH PRN PRN PRN Reason: Flush Stop: 07/20/18 00:16 Last Admin: 06/20/18 06:02 Dose: 5 ml Admin: 06/20/18 01:53 Dose: 5 ml Daptomycin 450 mg/ Syringe 9 mls @ 4.5 mls/min IV Q24H [facility]; Protocol Stop: 06/24/18 01:59 Last Admin: 06/20/18 01:52 Dose: 4.5 mls/min Admin: 06/19/18 02:35 Dose: 4.5 mls/min Admin: 06/18/18 01:18 Dose: 4.5 mls/min Admin: 06/17/18 01:42 Dose: 4.5 mls/min Admin: 06/16/18 02:22 Dose: 4.5 mls/min Admin: 06/15/18 02:04 Dose: 4.5 mls/min Admin: 06/14/18 03:31 Dose: 4.5 mls/min Insulin Aspart (Novolog Flexpen) 0 units SC ACHS [facility] Stop: 07/12/18 21:26 Last Admin: 06/20/18 12:30 Dose: 6 units Admin: 06/20/18 08:36 Dose: 4 units Admin: 06/19/18 21:00 Dose: Not Given Admin: 06/19/18 17:43 Dose: Not Given Admin: 06/19/18 12:30 Dose: 5 units Admin: 06/19/18 08:38 Dose: 3 units Admin: 06/18/18 21:36 Dose: 8 units Admin: 06/18/18 17:56 Dose: 8 units Admin: 06/18/18 12:30 Dose: 7 units Admin: 06/18/18 09:16 Dose: 2 units Admin: 06/17/18 21:18 Dose: 2 units Admin: 06/17/18 17:16 Dose: 5 units Admin: 06/17/18 12:21 Dose: 7 units Admin: 06/17/18 09:17 Dose: Not Given Admin: 06/16/18 21:36 Dose: 1 units Admin: 06/16/18 18:39 Dose: 5 units Admin: 06/16/18 12:39 Dose: 9 units Admin: 06/16/18 08:25 Dose: 6 units Admin: 06/15/18 21:35 Dose: 5 units Admin: 06/15/18 17:19 Dose: 4 units Admin: 06/15/18 12:06 Dose: 3 units Admin: 06/15/18 08:59 Dose: 6 units Admin: 06/14/18 21:00 Dose: 1 units Admin: 06/14/18 17:44 Dose: 11 units Admin: 06/14/18 14:04 Dose: 9 units Admin: 06/14/18 08:00 Dose: 7 units Admin: 06/13/18 22:02 Dose: 3 units Admin: 06/13/18 18:06 Dose: 4 units Admin: 06/13/18 12:28 Dose: 5 units Admin: 06/13/18 08:24 Dose: 12 units Admin: 06/12/18 22:43 Dose: 10 units Insulin Glargine (Lantus Solostar Pen) 10 - 20 units SC Q12 [facility] Stop: 07/12/18 21:26 Last Admin: 06/20/18 08:36 Dose: 15 units Admin: 06/19/18 21:04 Dose: 10 units Admin: 06/19/18 08:39 Dose: 10 units Admin: 06/18/18 21:37 Dose: 20 units Admin: 06/18/18 09:17 Dose: 10 units Admin: 06/17/18 21:16 Dose: 15 units Admin: 06/17/18 09:18 Dose: Not Given Admin: 06/16/18 21:36 Dose: 15 units Admin: 06/16/18 08:25 Dose: 10 units Admin: 06/15/18 21:34 Dose: 20 units Admin: 06/15/18 09:00 Dose: 10 units Admin: 06/14/18 21:00 Dose: 15 units Admin: 06/14/18 08:00 Dose: 20 units Admin: 06/13/18 22:00 Dose: 20 units Admin: 06/13/18 08:21 Dose: 20 units Admin: 06/12/18 22:45 Dose: 20 units Lisinopril (Zestril) 10 mg PO QAM [facility] Stop: 07/17/18 17:59 Last Admin: 06/20/18 08:32 Dose: 10 mg Admin: 06/19/18 07:56 Dose: 10 mg Admin: 06/18/18 12:25 Dose: 10 mg Admin: 06/17/18 18:55 Dose: 10 mg Metoprolol Succinate (Toprol Xl) 25 mg PO DAILY [facility] Stop: 07/13/18 08:59 Last Admin: 06/20/18 08:31 Dose: 25 mg Admin: 06/19/18 07:53 Dose: 25 mg Admin: 06/18/18 09:13 Dose: 25 mg Admin: 06/17/18 09:10 Dose: 25 mg Admin: 06/16/18 08:24 Dose: 25 mg Admin: 06/15/18 09:04 Dose: 25 mg Admin: 06/14/18 07:57 Dose: 25 mg Admin: 06/13/18 08:21 Dose: 25 mg Multivitamins/Minerals (Multivitamin W/ Minerals Tab) 1 tab PO DAILY [facility] Stop: 07/13/18 08:59 Last Admin: 06/20/18 08:34 Dose: Not Given Admin: 06/19/18 07:53 Dose: 1 tab Admin: 06/18/18 12:35 Dose: Not Given Admin: 06/17/18 09:18 Dose: Not Given Admin: 06/16/18 08:24 Dose: 1 tab Admin: 06/15/18 09:04 Dose: 1 tab Admin: 06/14/18 07:57 Dose: 1 tab Admin: 06/13/18 08:21 Dose: 1 tab Ondansetron HCl (Zofran) 4 mg IV Q8H PRN PRN Reason: Nausea Stop: 07/18/18 12:05 Last Admin: 06/20/18 01:54 Dose: 4 mg Pantoprazole Sodium (Protonix) 40 mg PO BID [facility] Stop: 07/12/18 21:26 Last Admin: 06/20/18 08:31 Dose: 40 mg Admin: 06/19/18 21:03 Dose: 40 mg Admin: 06/19/18 07:51 Dose: 40 mg Admin: 06/18/18 21:32 Dose: 40 mg Admin: 06/18/18 09:14 Dose: 40 mg Admin: 06/17/18 21:18 Dose: 40 mg Admin: 06/17/18 09:09 Dose: 40 mg Admin: 06/16/18 21:37 Dose: 40 mg Admin: 06/16/18 08:25 Dose: 40 mg Admin: 06/15/18 21:36 Dose: 40 mg Admin: 06/15/18 09:04 Dose: 40 mg Admin: 06/14/18 20:47 Dose: 40 mg Admin: 06/14/18 07:58 Dose: 40 mg Admin: 06/13/18 22:04 Dose: 40 mg Admin: 06/13/18 08:19 Dose: 40 mg Admin: 06/12/18 22:41 Dose: 40 mg Prednisone (Prednisone) 5 mg PO DAILY [facility]; Taper Stop: 06/22/18 08:59 Last Admin: 06/20/18 08:34 Dose: 5 mg Admin: 06/19/18 07:51 Dose: 10 mg Admin: 06/18/18 09:14 Dose: 10 mg Admin: 06/17/18 09:09 Dose: 20 mg Admin: 06/16/18 08:24 Dose: 20 mg Admin: 06/15/18 21:56 Dose: 20 mg Admin: 06/15/18 09:05 Dose: 20 mg Admin: 06/14/18 20:46 Dose: 20 mg Admin: 06/14/18 07:57 Dose: 20 mg Admin: 06/13/18 22:04 Dose: 40 mg Admin: 06/13/18 08:18 Dose: 40 mg Fluticasone/Salmeterol (Advair Diskus 250/50) 1 puffs INH BID [facility] Stop: 07/12/18 21:26 Last Admin: 06/20/18 08:29 Dose: 1 puffs Admin: 06/19/18 21:01 Dose: 1 puffs Admin: 06/19/18 07:51 Dose: 1 puffs Admin: 06/18/18 21:31 Dose: 1 puffs Admin: 06/18/18 09:16 Dose: 1 puffs Admin: 06/17/18 21:16 Dose: 1 puffs Admin: 06/17/18 09:11 Dose: 14 puffs Admin: 06/16/18 21:36 Dose: 1 puffs Admin: 06/16/18 08:23 Dose: 1 puffs Admin: 06/15/18 21:34 Dose: 1 puffs Admin: 06/15/18 09:03 Dose: 1 puffs Admin: 06/14/18 20:46 Dose: 1 puffs Admin: 06/14/18 07:57 Dose: 1 puffs Admin: 06/13/18 21:59 Dose: 1 puffs Admin: 06/13/18 08:18 Dose: 1 puffs Admin: 06/12/18 22:40 Dose: 1 puffs Tramadol HCl (Ultram) 50 mg PO Q6H PRN PRN Reason: Pain Stop: 07/12/18 21:26 Last Admin: 06/20/18 04:41 Dose: 50 mg Admin: 06/13/18 08:29 Dose: 50 mg
--- NOTE | 2018-06-20 17:35 | Hospitalist Progress Note ---
Date of Service June 20, 2018 Assessment & Plan (1) Hypertension: Controlled with Bumex, Toprol XL and new addition of lisinopril 10mg PO mar this admission. Needs bloodwork in two weeks to monitor kidney function and elctrolytes. 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 Cont Dapto per ID recs. Hold Lipitor while on Dapto. No evidence of mass or vegetation on TTE. No murmurs auscultated on exam. PAWAN not needed as blood cultures are not persistently positive and there is a likely source of infection with her leg wounds. Afebrile. (3) Anemia: 2/2 chronic disease. Stable after 2 Units of blood. (4) Zoster: PCR was negative. Acyclovir was reduced down to her BID dosing for prophylaxis. Contact precautions were removed. (5) Cellulitis, leg: Resolved, antibiotics for bacteremia above. (6) ALL (acute lymphoblastic leukemia): Started her Sprycel yesterday and tolerating it. (7) Thrombocytopenia: Continues to improve, now >100K (8) CKD (chronic kidney disease), stage III: Creatinine at baseline. Avoid nephrotoxic substances as able. (9) Secondary hyperparathyroidism: (10) Vitamin D deficiency: (11) Hypocalcemia: elevated PTH, likely 2/2 hyperparathyroidism 2/2 vit D deficiency. Hypocalcemia also likely 2/2 vit D deficiency. She is asymptomatic (no tetany, muscle spasticity or numbness). Cont with vitamin D replacement and repeat labs as outpatient with PCP. (12) Nocturnal hypoxia: Continue O2 for this per home regimen. (13) DM type 2 (diabetes mellitus, type 2): Hgb A1C 7.7 05/13/18. Cont Lantus / NovoLog per protocol. (14) Dyslipidemia: Hold atorvastatin while receiving daptomycin. (15) Elevated troponin: Serum troponin 0.130, 0.140, 0.150. No anginal symptoms. EKG shows NSR with nonspecific changes. Probable demand ischemia vs nonspecific elevation secondary to infection. No further workup at this time. (16) Hypophosphatemia: Resolved. (17) DVT prophylaxis: No anticoagulants 2/2 anemia. SCD's. Ambulate as tolerated with assist. Full Code Dispo-awaiting approval to SNF for rehab. Angy Fontaine DO [facility] Hospitalist Subjective Persistent weakness reported. Tolerating p.o. No pain and patient is afebrile. No episodes of bleeding. Appears improved from an energy standpoint Physical Exam Vital Signs (Past 24 Hours): Last Vital Signs Temp 36.6 C 06/20/18 15:38 Pulse 77 06/20/18 15:38 Resp 20 06/20/18 15:38 BP 112/69 06/20/18 15:38 Pulse Ox 91 06/20/18 15:38 CONSTITUTIONAL: WNWD, vitals as above, generally weak-appearing EYES: normal conjuctivae, no scleral icterus RESPIRATORY: clear to auscultation bilaterally, no crackles, rales or wheezes, normal respiratory effort CARDIOVASCULAR: regular rate and rhythm, S1 and 2 heard without murmurs, gallops or rubs, no JVD, no peripheral edema GASTROINTESTINAL: soft, nontender, nondistended, no guarding. MUSCULOSKELETAL: generalized weakness, head is normocephalic and atraumatic SKIN: warm and dry, multiple scratches on her lower legs bilaterally. Erythema resolved. Two separate areas on medial knees with vesicles on an erythematous base-localized, continues to improve. NEUROLOGIC: CN 2-12 grossly intact, no sensory deficit, normal cognition, normal speech PSYCHIATRIC: alert cooperative and oriented to person, place and time. Depressed mood. Results & Data Laboratory Results Short CBC 06/20/18 Range/Units 06:01 WBC 8.49 (4.8-10.8) K/uL Hgb 9.3 L (12.0-16.0) g/dL Hct 29.5 L (37-47) % Plt Count 131 (130-400) K/uL [facility] 06/20/18 06:01 Sodium 140 Potassium 3.5 Chloride 102 Carbon Dioxide 34 H BUN 24 H Creatinine 1.00 Glucose 136 H Calcium 7.8 L Medications Administered Current Inpatient Medications Acetaminophen (Tylenol) 650 mg PO Q4H PRN PRN Reason: Pain or Fever Stop: 07/12/18 20:31 Acyclovir (Zovirax) 400 mg PO BID ON LICENSE OF [facility]; Protocol Stop: 07/18/18 20:59 Last Admin: 06/20/18 08:31 Dose: 400 mg Allopurinol (Zyloprim) 300 mg PO DAILY ON LICENSE OF [facility] Stop: 07/13/18 08:59 Last Admin: 06/20/18 08:31 Dose: 300 mg Bumetanide (Bumex) 1 mg PO BID17 [facility] Stop: 07/12/18 21:26 Last Admin: 06/20/18 08:33 Dose: 1 mg Dapsone (Dapsone) 100 mg PO DAILY ON LICENSE OF [facility] Stop: 07/13/18 08:59 Last Admin: 06/20/18 08:29 Dose: 100 mg Dasatinib (Sprycel) 1 ea PO BID [facility] Stop: 07/17/18 13:59 Last Admin: 06/20/18 08:28 Dose: 1 ea Dextrose (Dextrose 50%) 25 - 50 ml IV UD PRN; Protocol PRN Reason: Hypoglycemia Protocol Stop: 07/12/18 21:26 Ergocalciferol (Vitamin D2) 50,000 units PO Q7D ON LICENSE OF [facility] Stop: 07/15/18 11:59 Last Admin: 06/16/18 08:24 Dose: 50,000 units Escitalopram Oxalate (Lexapro) 5 mg PO DAILY [facility] Stop: 07/13/18 08:59 Last Admin: 06/20/18 08:31 Dose: 5 mg Glucagon (Glucagen) 1 mg SQ UD PRN; Protocol PRN Reason: Hypoglycemia Protocol Stop: 07/12/18 21:26 Glucose (Glucose 40%) 15 - 30 gm PO UD PRN; Protocol PRN Reason: Hypoglycemia Protocol Stop: 07/12/18 21:26 Glucose (Dex4 Glucose) 4 - 8 tabs PO UD PRN; Protocol PRN Reason: Hypoglycemia Protocol Stop: 07/12/18 21:26 Heparin Sodium (Beef Lung) (Heparin Sod 10 Unit/Ml Flush) 5 ml FLUSH PRN PRN PRN Reason: Flush Stop: 07/20/18 00:16 Last Admin: 06/20/18 06:02 Dose: 5 ml Daptomycin 450 mg/ Syringe 9 mls @ 4.5 mls/min IV Q24H [facility]; Protocol Stop: 06/24/18 01:59 Last Admin: 06/20/18 01:52 Dose: 4.5 mls/min Sodium Chloride (Nss 250ml) 250 mls @ 15 mls/hr IV .[id number] PRN PRN Reason: For Transfusion Stop: 07/15/18 16:27 Insulin Aspart (Novolog Flexpen) 0 units SC ACHS [facility] Stop: 07/12/18 21:26 Last Admin: 06/20/18 12:30 Dose: 6 units Insulin Glargine (Lantus Solostar Pen) 10 - 20 units SC Q12 ON LICENSE OF [facility] Stop: 07/12/18 21:26 Last Admin: 06/20/18 08:36 Dose: 15 units Lisinopril (Zestril) 10 mg PO QAM ON LICENSE OF [facility] Stop: 07/17/18 17:59 Last Admin: 06/20/18 08:32 Dose: 10 mg Metoprolol Succinate (Toprol Xl) 25 mg PO DAILY ON LICENSE OF [facility] Stop: 07/13/18 08:59 Last Admin: 06/20/18 08:31 Dose: 25 mg Miscellaneous (Carbohydrates For Hypoglycemia) 15 - 30 gm PO UD PRN PRN Reason: Hypoglycemia Treatment Stop: 07/12/18 21:26 Miscellaneous Information (Consult) 1 ea N/A UD PRN PRN Reason: Consult Stop: 07/12/18 22:20 Multivitamins/Minerals (Multivitamin W/ Minerals Tab) 1 tab PO DAILY ON LICENSE OF [facility] Stop: 07/13/18 08:59 Last Admin: 06/20/18 08:34 Dose: Not Given Ondansetron HCl (Zofran) 4 mg IV Q8H PRN PRN Reason: Nausea Stop: 07/18/18 12:05 Last Admin: 06/20/18 01:54 Dose: 4 mg Pantoprazole Sodium (Protonix) 40 mg PO BID ON LICENSE OF [facility] Stop: 07/12/18 21:26 Last Admin: 06/20/18 08:31 Dose: 40 mg Prednisone (Prednisone) 5 mg PO DAILY ON LICENSE OF [facility]; Taper Stop: 06/22/18 08:59 Last Admin: 06/20/18 08:34 Dose: 5 mg Fluticasone/Salmeterol (Advair Diskus 250/50) 1 puffs INH BID ON LICENSE OF [facility] Stop: 07/12/18 21:26 Last Admin: 06/20/18 08:29 Dose: 1 puffs Tramadol HCl (Ultram) 50 mg PO Q6H PRN PRN Reason: Pain Stop: 07/12/18 21:26 Last Admin: 06/20/18 04:41 Dose: 50 mg
--- NOTE | 2018-06-22 07:05 | Hospitalist Progress Note ---
Date of Service June 21, 2018 Assessment & Plan (1) Hypertension: Controlled with Bumex, Toprol XL and new addition of lisinopril 10mg PO mar this admission. Needs bloodwork in two weeks to monitor kidney function and elctrolytes. 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 Cont Dapto per ID recs. Hold Lipitor while on Dapto. No evidence of mass or vegetation on TTE. No murmurs auscultated on exam. PAWAN not needed as blood cultures are not persistently positive and there is a likely source of infection with her leg wounds. Afebrile. (3) Anemia: 2/2 chronic disease. Stable after 2 Units of blood. (4) Zoster: PCR was negative. Acyclovir was reduced down to her BID dosing for prophylaxis. Contact precautions were removed. (5) Cellulitis, leg: Resolved, antibiotics for bacteremia above. 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 (7) Thrombocytopenia: Remains >100K, no issues with bleeding (8) CKD (chronic kidney disease), stage III: Creatinine at baseline. Avoid nephrotoxic substances as able. (9) Secondary hyperparathyroidism: (10) Vitamin D deficiency: (11) Hypocalcemia: elevated PTH, likely 2/2 hyperparathyroidism 2/2 vit D deficiency. Hypocalcemia also likely 2/2 vit D deficiency. She is asymptomatic (no tetany, muscle spasticity or numbness). Cont with vitamin D replacement and repeat labs as outpatient with PCP. (12) Nocturnal hypoxia: Continue O2 for this per home regimen. (13) DM type 2 (diabetes mellitus, type 2): Hgb A1C 7.7 05/13/18. Cont Lantus / NovoLog per protocol. (14) Dyslipidemia: Hold atorvastatin while receiving daptomycin. (15) Elevated troponin: Serum troponin 0.130, 0.140, 0.150. No anginal symptoms. EKG shows NSR with nonspecific changes. Probable demand ischemia vs nonspecific elevation secondary to infection. No further workup at this time. (16) DVT prophylaxis: No anticoagulants 2/2 anemia. SCD's. Ambulate as tolerated with assist. Full Code Dispo-awaiting approval to SNF for rehab. [facility] was an option but she was denied. Peer to peer performed which was also denied. Possibly dc to [facility]. Appreciate CM assistance. Angy Fontaine DO [facility] Hospitalist Subjective Generalized weakness. No symptoms reported other than this today. Tolerating p.o. Denies pain. Physical Exam Vital Signs (Past 24 Hours): Last Vital Signs Temp 36.7 C 06/22/18 03:00 Pulse 91 H 06/22/18 03:00 Resp 20 06/22/18 03:00 BP 147/76 H 06/22/18 03:00 Pulse Ox 92 06/22/18 03:00 CONSTITUTIONAL: WNWD, vitals as above, generally weak-appearing EYES: normal conjuctivae, no scleral icterus RESPIRATORY: clear to auscultation bilaterally, no crackles, rales or wheezes, normal respiratory effort CARDIOVASCULAR: regular rate and rhythm, S1 and 2 heard without murmurs, gallops or rubs, no JVD, no peripheral edema GASTROINTESTINAL: soft, nontender, nondistended, no guarding. MUSCULOSKELETAL: generalized weakness, head is normocephalic and atraumatic SKIN: warm and dry, multiple scratches on her lower legs bilaterally. Erythema resolved. Two separate areas on medial knees with vesicles on an erythematous base-localized, continues to improve. NEUROLOGIC: CN 2-12 grossly intact, no sensory deficit, normal cognition, normal speech PSYCHIATRIC: alert cooperative and oriented to person, place and time. Depressed mood. Results & Data Medications Administered Current Inpatient Medications Acetaminophen (Tylenol) 650 mg PO Q4H PRN PRN Reason: Pain or Fever Stop: 07/12/18 20:31 Acyclovir (Zovirax) 400 mg PO BID [facility]; Protocol Stop: 07/18/18 20:59 Last Admin: 06/21/18 20:51 Dose: 400 mg Documented by: Allopurinol (Zyloprim) 300 mg PO DAILY [facility] Stop: 07/13/18 08:59 Last Admin: 06/21/18 08:42 Dose: 300 mg Documented by: [facility] Stop: 07/12/18 21:26 Last Admin: 06/21/18 18:00 Dose: 1 mg Documented by: Dapsone (Dapsone) 100 mg PO DAILY [facility] Stop: 07/13/18 08:59 Last Admin: 06/21/18 08:44 Dose: 100 mg Documented by: Dasatinib (Sprycel) 1 ea PO BID [facility] Stop: 07/17/18 13:59 Last Admin: 06/21/18 21:35 Dose: 1 ea Documented by: Dextrose (Dextrose 50%) 25 - 50 ml IV UD PRN; Protocol PRN Reason: Hypoglycemia Protocol Stop: 07/12/18 21:26 Ergocalciferol (Vitamin D2) 50,000 units PO Q7D [facility] Stop: 07/15/18 11:59 Last Admin: 06/16/18 08:24 Dose: 50,000 units Documented by: Escitalopram Oxalate (Lexapro) 5 mg PO DAILY [facility] Stop: 07/13/18 08:59 Last Admin: 06/21/18 08:43 Dose: 5 mg Documented by: Glucagon (Glucagen) 1 mg SQ UD PRN; Protocol PRN Reason: Hypoglycemia Protocol Stop: 07/12/18 21:26 Glucose (Glucose 40%) 15 - 30 gm PO UD PRN; Protocol PRN Reason: Hypoglycemia Protocol Stop: 07/12/18 21:26 Glucose (Dex4 Glucose) 4 - 8 tabs PO UD PRN; Protocol PRN Reason: Hypoglycemia Protocol Stop: 07/12/18 21:26 Heparin Sodium (Beef Lung) (Heparin Sod 10 Unit/Ml Flush) 5 ml FLUSH PRN PRN PRN Reason: Flush Stop: 07/20/18 00:16 Last Admin: 06/20/18 06:02 Dose: 5 ml Documented by: Daptomycin 450 mg/ Syringe 9 mls @ 4.5 mls/min IV Q24H [facility]; Protocol Stop: 07/05/18 01:59 Last Admin: 06/22/18 02:28 Dose: 4.5 mls/min Documented by: Sodium Chloride (Nss 250ml) 250 mls @ 15 mls/hr IV .[id number] PRN PRN Reason: For Transfusion Stop: 07/15/18 16:27 Insulin Aspart (Novolog Flexpen) 0 units SC ACHS [facility] Stop: 07/12/18 21:26 Last Admin: 06/21/18 21:35 Dose: 2 units Documented by: Insulin Glargine (Lantus Solostar Pen) 10 - 20 units SC Q12 [facility] Stop: 07/12/18 21:26 Last Admin: 06/21/18 21:33 Dose: 15 units Documented by: Lisinopril (Zestril) 10 mg PO QAM [facility] Stop: 07/17/18 17:59 Last Admin: 06/21/18 08:41 Dose: 10 mg Documented by: Metoprolol Succinate (Toprol Xl) 25 mg PO DAILY [facility] Stop: 07/13/18 08:59 Last Admin: 06/21/18 08:42 Dose: 25 mg Documented by: Miscellaneous (Carbohydrates For Hypoglycemia) 15 - 30 gm PO UD PRN PRN Reason: Hypoglycemia Treatment Stop: 07/12/18 21:26 Miscellaneous Information (Consult) 1 ea N/A UD PRN PRN Reason: Consult Stop: 07/12/18 22:20 Multivitamins/Minerals (Multivitamin W/ Minerals Tab) 1 tab PO DAILY [facility] Stop: 07/13/18 08:59 Last Admin: 06/21/18 08:40 Dose: 1 tab Documented by: Ondansetron HCl (Zofran) 4 mg IV Q8H PRN PRN Reason: Nausea Stop: 07/18/18 12:05 Last Admin: 06/20/18 01:54 Dose: 4 mg Documented by: Pantoprazole Sodium (Protonix) 40 mg PO BID [facility] Stop: 07/12/18 21:26 Last Admin: 06/21/18 20:51 Dose: 40 mg Documented by: Prednisone (Prednisone) 5 mg PO DAILY [facility]; Taper Stop: 06/22/18 08:59 Last Admin: 06/21/18 08:41 Dose: 5 mg Documented by: Fluticasone/Salmeterol (Advair Diskus 250/50) 1 puffs INH BID [facility] Stop: 07/12/18 21:26 Last Admin: 06/21/18 20:50 Dose: 1 puffs Documented by: Tramadol HCl (Ultram) 50 mg PO Q6H PRN PRN Reason: Pain Stop: 07/12/18 21:26 Last Admin: 06/20/18 04:41 Dose: 50 mg Documented by:
--- NOTE | 2018-06-22 15:55 | Hospitalist Progress Note ---
Date of Service June 22, 2018 Assessment & Plan (1) Hypertension: Controlled with Bumex, Toprol XL and new addition of lisinopril 10mg PO mar this admission. Needs bloodwork in two weeks to monitor kidney function and elctrolytes. 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 Cont Dapto per ID recs. Hold Lipitor while on Dapto. No evidence of mass or vegetation on TTE. No murmurs auscultated on exam. PAWAN not needed as blood cultures are not persistently positive and there is a likely source of infection with her leg wounds. Afebrile. (3) Anemia: 2/2 chronic disease. Stable after 2 Units of blood. (4) Cellulitis, leg: Resolved, antibiotics for bacteremia above. 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 (6) Thrombocytopenia: Remains >100K, no issues with bleeding (7) CKD (chronic kidney disease), stage III: Creatinine at baseline. Avoid nephrotoxic substances as able. (8) Secondary hyperparathyroidism: (9) Vitamin D deficiency: elevated PTH, likely 2/2 hyperparathyroidism 2/2 vit D deficiency. Hypocalcemia also likely 2/2 vit D deficiency. She is asymptomatic (no tetany, muscle spasticity or numbness). Cont with vitamin D replacement and repeat labs as outpatient with PCP. (10) Nocturnal hypoxia: Continue O2 for this per home regimen. (11) DM type 2 (diabetes mellitus, type 2): Hgb A1C 7.7 05/13/18. Cont Lantus / NovoLog per protocol. (12) Dyslipidemia: Hold atorvastatin while receiving daptomycin. (13) Elevated troponin: Serum troponin 0.130, 0.140, 0.150. No anginal symptoms. EKG shows NSR with nonspecific changes. Probable demand ischemia vs nonspecific elevation secondary to infection. No further workup at this time. (14) DVT prophylaxis: No anticoagulants 2/2 anemia. SCD's. Ambulate as tolerated with assist. Full Code Dispo-awaiting approval to SNF for rehab. [facility] was an option but she was denied. Peer to peer performed which was also denied. Possibly dc to [facility]. Appreciate CM assistance. Angy Fontaine DO [facility] Hospitalist Subjective Persistently reports weakness, no better or worse today. She denies any pain. She is tolerating p.o. She is ambulating to the bedside commode without issue. Awaiting placement in facility. Physical Exam Vital Signs (Past 24 Hours): Last Vital Signs Temp 36.6 C 06/22/18 15:10 Pulse 95 H 06/22/18 15:10 Resp 18 06/22/18 15:10 BP 136/74 06/22/18 15:10 Pulse Ox 91 06/22/18 15:50 CONSTITUTIONAL: WNWD, vitals as above, generally weak-appearing EYES: normal conjuctivae, no scleral icterus RESPIRATORY: clear to auscultation bilaterally, no crackles, rales or wheezes, normal respiratory effort CARDIOVASCULAR: regular rate and rhythm, S1 and 2 heard without murmurs, gallops or rubs, no JVD, no peripheral edema GASTROINTESTINAL: soft, nontender, nondistended, no guarding. MUSCULOSKELETAL: generalized weakness, head is normocephalic and atraumatic SKIN: warm and dry, multiple scratches on her lower legs bilaterally. Erythema resolved. Two separate areas on medial knees with vesicles on an erythematous base-localized, continues to improve. NEUROLOGIC: CN 2-12 grossly intact, no sensory deficit, normal cognition, normal speech PSYCHIATRIC: alert cooperative and oriented to person, place and time. Depressed mood. Results & Data Medications Administered Current Inpatient Medications Acetaminophen (Tylenol) 650 mg PO Q4H PRN PRN Reason: Pain or Fever Stop: 07/12/18 20:31 Acyclovir (Zovirax) 400 mg PO BID [facility]; Protocol Stop: 07/18/18 20:59 Last Admin: 06/22/18 07:51 Dose: 400 mg Documented by: Allopurinol (Zyloprim) 300 mg PO DAILY [facility] Stop: 07/13/18 08:59 Last Admin: 06/22/18 07:51 Dose: 300 mg Documented by: [facility] Stop: 07/12/18 21:26 Last Admin: 06/22/18 07:50 Dose: 1 mg Documented by: Dapsone (Dapsone) 100 mg PO DAILY [facility] Stop: 07/13/18 08:59 Last Admin: 06/22/18 07:50 Dose: 100 mg Documented by: Dasatinib (Sprycel) 1 ea PO BID [facility] Stop: 07/17/18 13:59 Last Admin: 06/22/18 08:30 Dose: 1 ea Documented by: Dextrose (Dextrose 50%) 25 - 50 ml IV UD PRN; Protocol PRN Reason: Hypoglycemia Protocol Stop: 07/12/18 21:26 Ergocalciferol (Vitamin D2) 50,000 units PO Q7D [facility] Stop: 07/15/18 11:59 Last Admin: 06/22/18 07:50 Dose: 50,000 units Documented by: Escitalopram Oxalate (Lexapro) 5 mg PO DAILY [facility] Stop: 07/13/18 08:59 Last Admin: 06/22/18 07:51 Dose: 5 mg Documented by: Glucagon (Glucagen) 1 mg SQ UD PRN; Protocol PRN Reason: Hypoglycemia Protocol Stop: 07/12/18 21:26 Glucose (Glucose 40%) 15 - 30 gm PO UD PRN; Protocol PRN Reason: Hypoglycemia Protocol Stop: 07/12/18 21:26 Glucose (Dex4 Glucose) 4 - 8 tabs PO UD PRN; Protocol PRN Reason: Hypoglycemia Protocol Stop: 07/12/18 21:26 Heparin Sodium (Beef Lung) (Heparin Sod 10 Unit/Ml Flush) 5 ml FLUSH PRN PRN PRN Reason: Flush Stop: 07/20/18 00:16 Last Admin: 06/20/18 06:02 Dose: 5 ml Documented by: Daptomycin 450 mg/ Syringe 9 mls @ 4.5 mls/min IV Q24H [facility]; Protocol Stop: 07/05/18 01:59 Last Admin: 06/22/18 02:28 Dose: 4.5 mls/min Documented by: Sodium Chloride (Nss 250ml) 250 mls @ 15 mls/hr IV .[id number] PRN PRN Reason: For Transfusion Stop: 07/15/18 16:27 Insulin Aspart (Novolog Flexpen) 0 units SC ACHS [facility] Stop: 07/12/18 21:26 Last Admin: 06/22/18 13:04 Dose: 2 units Documented by: Insulin Glargine (Lantus Solostar Pen) 10 - 20 units SC Q12 [facility] Stop: 07/12/18 21:26 Last Admin: 06/22/18 08:29 Dose: Not Given Documented by: Lisinopril (Zestril) 10 mg PO QAM [facility] Stop: 07/17/18 17:59 Last Admin: 06/22/18 07:50 Dose: 10 mg Documented by: Metoprolol Succinate (Toprol Xl) 25 mg PO DAILY [facility] Stop: 07/13/18 08:59 Last Admin: 06/22/18 07:51 Dose: 25 mg Documented by: Miscellaneous (Carbohydrates For Hypoglycemia) 15 - 30 gm PO UD PRN PRN Reason: Hypoglycemia Treatment Stop: 07/12/18 21:26 Miscellaneous Information (Consult) 1 ea N/A UD PRN PRN Reason: Consult Stop: 07/12/18 22:20 Multivitamins/Minerals (Multivitamin W/ Minerals Tab) 1 tab PO DAILY [facility] Stop: 07/13/18 08:59 Last Admin: 06/22/18 07:52 Dose: 1 tab Documented by: Ondansetron HCl (Zofran) 4 mg IV Q8H PRN PRN Reason: Nausea Stop: 07/18/18 12:05 Last Admin: 06/20/18 01:54 Dose: 4 mg Documented by: Pantoprazole Sodium (Protonix) 40 mg PO BID [facility] Stop: 07/12/18 21:26 Last Admin: 06/22/18 07:52 Dose: 40 mg Documented by: Fluticasone/Salmeterol (Advair Diskus 250/50) 1 puffs INH BID [facility] Stop: 07/12/18 21:26 Last Admin: 06/22/18 07:49 Dose: 1 puffs Documented by: Tramadol HCl (Ultram) 50 mg PO Q6H PRN PRN Reason: Pain Stop: 07/12/18 21:26 Last Admin: 06/22/18 08:41 Dose: 50 mg Documented by:
--- NOTE | 2018-06-23 11:16 | Hospitalist Progress Note ---
Date of Service June 23, 2018 Assessment & Plan (1) Hypertension: Controlled with Bumex, Toprol XL and new addition of lisinopril 10mg PO mar this admission. Needs bloodwork in two weeks to monitor kidney function and elctrolytes. 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 Cont Dapto per ID recs. Hold Lipitor while on Dapto. No evidence of mass or vegetation on TTE. No murmurs auscultated on exam. PAWAN not needed as blood cultures are not persistently positive and there is a likely source of infection with her leg wounds. Afebrile. (3) Anemia: 2/2 chronic disease. Stable after 2 Units of blood. (4) Cellulitis, leg: Resolved, antibiotics for bacteremia above. 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 (6) Thrombocytopenia: Remains >100K, no issues with bleeding (7) CKD (chronic kidney disease), stage III: Creatinine at baseline. Avoid nephrotoxic substances as able. (8) Secondary hyperparathyroidism: (9) Vitamin D deficiency: elevated PTH, likely 2/2 hyperparathyroidism 2/2 vit D deficiency. Hypocalcemia also likely 2/2 vit D deficiency. She is asymptomatic (no tetany, muscle spasticity or numbness). Cont with vitamin D replacement and repeat labs as outpatient with PCP. (10) Nocturnal hypoxia: Continue O2 for this per home regimen. CXR as above. Will ask nurses to wean her off to room air during the day. (11) DM type 2 (diabetes mellitus, type 2): Hgb A1C 7.7 05/13/18. Cont Lantus / NovoLog per protocol. (12) Dyslipidemia: Hold atorvastatin while receiving daptomycin. (13) Elevated troponin: Serum troponin 0.130, 0.140, 0.150. No anginal symptoms. EKG shows NSR with nonspecific changes. Probable demand ischemia vs nonspecific elevation secondary to infection. No further workup at this time. (14) DVT prophylaxis: Higher risk for DVT in setting of active malignancy. Anemia appears stable, there is no active bleeding. Platelets>100K. Start Lovenox. SCD's. Ambulate as tolerated with assist. Full Code Dispo-to [facility] on Tuesday. Cont to mobilize OOB to chair/ambulation as tolerated. Angy Fontaine DO [facility] Hospitalist Subjective Patient reports walking to the bathroom on her own and being up and out of bed more overnight and yesterday. She is feeling well without symptoms at this time. Physical exam revealed crackles at the right base, however the patient denies any coughing, fevers, chills. She does wear nocturnal oxygen at baseline but has opted subjectively to wear it all the time as it makes her feel better. Physical Exam Vital Signs (Past 24 Hours): Last Vital Signs Temp 36.7 C 06/23/18 07:32 Pulse 84 06/23/18 07:32 Resp 16 06/23/18 07:32 BP 121/67 06/23/18 07:32 Pulse Ox 93 06/23/18 07:32 CONSTITUTIONAL: WNWD, vitals as above, NAD EYES: normal conjuctivae, no scleral icterus RESPIRATORY: clear to auscultation bilaterally, Normal respiratory effort, crackles at right base. CARDIOVASCULAR: regular rate and rhythm, S1 and 2 heard without murmurs, gallops or rubs, no JVD, no peripheral edema GASTROINTESTINAL: soft, nontender, nondistended, no guarding. MUSCULOSKELETAL: generalized weakness, head is normocephalic and atraumatic SKIN: warm and dry, two separate areas on medial knees with vesicles on an erythematous base-localized, Improved, dried and crusting over. Erythema has resolved. NEUROLOGIC: CN 2-12 grossly intact, no sensory deficit, normal cognition, normal speech PSYCHIATRIC: alert cooperative and oriented to person, place and time. Flat affect Results & Data Medications Administered Current Inpatient Medications Acetaminophen (Tylenol) 650 mg PO Q4H PRN PRN Reason: Pain or Fever Stop: 07/12/18 20:31 Acyclovir (Zovirax) 400 mg PO BID [facility]; Protocol Stop: 07/18/18 20:59 Last Admin: 06/23/18 08:03 Dose: 400 mg Documented by: Allopurinol (Zyloprim) 300 mg PO DAILY [facility] Stop: 07/13/18 08:59 Last Admin: 06/23/18 08:03 Dose: 300 mg Documented by: Bumetanide (Bumex) 1 mg PO BID17 [facility] Stop: 07/12/18 21:26 Last Admin: 06/23/18 08:01 Dose: 1 mg Documented by: Dapsone (Dapsone) 100 mg PO DAILY [facility] Stop: 07/13/18 08:59 Last Admin: 06/23/18 08:01 Dose: 100 mg Documented by: Dasatinib (Sprycel) 1 ea PO BID [facility] Stop: 07/17/18 13:59 Last Admin: 06/23/18 08:03 Dose: 1 ea Documented by: Dextrose (Dextrose 50%) 25 - 50 ml IV UD PRN; Protocol PRN Reason: Hypoglycemia Protocol Stop: 07/12/18 21:26 Ergocalciferol (Vitamin D2) 50,000 units PO Q7D [facility] Stop: 07/15/18 11:59 Last Admin: 06/22/18 07:50 Dose: 50,000 units Documented by: Escitalopram Oxalate (Lexapro) 5 mg PO DAILY [facility] Stop: 07/13/18 08:59 Last Admin: 06/23/18 08:01 Dose: 5 mg Documented by: Glucagon (Glucagen) 1 mg SQ UD PRN; Protocol PRN Reason: Hypoglycemia Protocol Stop: 07/12/18 21:26 Glucose (Glucose 40%) 15 - 30 gm PO UD PRN; Protocol PRN Reason: Hypoglycemia Protocol Stop: 07/12/18 21:26 Glucose (Dex4 Glucose) 4 - 8 tabs PO UD PRN; Protocol PRN Reason: Hypoglycemia Protocol Stop: 07/12/18 21:26 Heparin Sodium (Beef Lung) (Heparin Sod 10 Unit/Ml Flush) 5 ml FLUSH PRN PRN PRN Reason: Flush Stop: 07/20/18 00:16 Last Admin: 06/20/18 06:02 Dose: 5 ml Documented by: Daptomycin 450 mg/ Syringe 9 mls @ 4.5 mls/min IV Q24H [facility]; Protocol Stop: 07/05/18 01:59 Last Admin: 06/23/18 02:22 Dose: 4.5 mls/min Documented by: Sodium Chloride (Nss 250ml) 250 mls @ 15 mls/hr IV .[id number] PRN PRN Reason: For Transfusion Stop: 07/15/18 16:27 Insulin Aspart (Novolog Flexpen) 0 units SC ACHS [facility] Stop: 07/12/18 21:26 Last Admin: 06/23/18 08:13 Dose: 10 units Documented by: Insulin Glargine (Lantus Solostar Pen) 10 - 20 units SC Q12 [facility] Stop: 07/12/18 21:26 Last Admin: 06/23/18 08:04 Dose: 10 units Documented by: Lisinopril (Zestril) 10 mg PO QAM [facility] Stop: 07/17/18 17:59 Last Admin: 06/23/18 08:02 Dose: 10 mg Documented by: Metoprolol Succinate (Toprol Xl) 25 mg PO DAILY [facility] Stop: 07/13/18 08:59 Last Admin: 06/23/18 08:02 Dose: 25 mg Documented by: Miscellaneous (Carbohydrates For Hypoglycemia) 15 - 30 gm PO UD PRN PRN Reason: Hypoglycemia Treatment Stop: 07/12/18 21:26 Miscellaneous Information (Consult) 1 ea N/A UD PRN PRN Reason: Consult Stop: 07/12/18 22:20 Multivitamins/Minerals (Multivitamin W/ Minerals Tab) 1 tab PO DAILY [facility] Stop: 07/13/18 08:59 Last Admin: 06/23/18 08:02 Dose: 1 tab Documented by: Ondansetron HCl (Zofran) 4 mg IV Q8H PRN PRN Reason: Nausea Stop: 07/18/18 12:05 Last Admin: 06/20/18 01:54 Dose: 4 mg Documented by: Pantoprazole Sodium (Protonix) 40 mg PO BID [facility] Stop: 07/12/18 21:26 Last Admin: 06/23/18 08:02 Dose: 40 mg Documented by: Fluticasone/Salmeterol (Advair Diskus 250/50) 1 puffs INH BID [facility] Stop: 07/12/18 21:26 Last Admin: 06/23/18 08:00 Dose: 1 puffs Documented by: Tramadol HCl (Ultram) 50 mg PO Q6H PRN PRN Reason: Pain Stop: 07/12/18 21:26 Last Admin: 06/22/18 08:41 Dose: 50 mg Documented by:
--- NOTE | 2018-06-23 12:01 | XRay Report ---
XR chest 2V routine CLINICAL HISTORY: 72 years-old Female presenting with persistent hypoxia, crackles R base. TECHNIQUE: PA and lateral views of the chest were obtained. COMPARISON: 06/12/2018. FINDINGS: Right upper extremity PICC terminates in the lower SVC. Atherosclerosis of the aortic arch. Cardiac s ilhouette enlarged. Mild pulmonary vascular prominence. Calcified hilar lymph nodes suggested. Extens yanick left lower lobe atelectasis. Small left pleural effusion. Bandlike opacities at the right lung ba se likely atelectasis or scarring. Degenerative changes of the thoracic spine. Cholecystectomy clips noted. IMPRESSION: 1. Extensive left lower lobe atelectasis increased from prior. 2. Left pleural effusion increased from prior. 3. Right basilar atelectasis or scarring increased from prior. 4. Cardiomegaly with volume overload. Electronically signed by: Adam Alatorre M.D. 06/23/2018 11:59 AM
[2018-06-24 07:04] LABS: Creatinine Clr Calc Pharmacy 43.8 ml/min; Est GFR (African American) 44.9; Est GFR (Non-African American) 38.7
[2018-06-24 09:21] LABS: Basophils # (auto) 0.04 K/uL (0-0.2); Basophils % (auto) 0.8 %; Eosinophils # (auto) 0.02 K/uL (0-0.5); Eosinophils % (auto) 0.4 %; Hematocrit (blood only) 23.1 % (37-47); Hemoglobin 7.1 g/dL (12.0-16.0); Immature Granulocytes # (auto) 0.06 K/uL (0.00-0.02); Immature Granulocytes % (auto) 1.1 %; Lymphocytes % (auto) 7.5 %; Mean Corpuscular Hgb Conc 30.7 g/dL (32-36); Mean Corpuscular Volume 99.6 fL (80-100); Mean Platelet Volume 9.8 fL (7.4-10.4); Monocytes # (auto) 0.35 K/uL (0.11-0.59); Monocytes % (auto) 6.6 %; Neutrophils # (auto) 4.43 K/uL (1.4-6.5); Neutrophils % (auto) 83.6 %; Nucleated RBC # (auto) 0.04 K/uL (0-0); Nucleated RBC % (auto) 0.7 %; Platelet Count 143 K/uL (130-400); RDW Coefficient of Variation 21.4 % (11.5-14.5); Red Blood Count 2.32 M/uL (4.2-5.4)
[2018-06-24 09:28] LABS: BUN Creatinine Ratio 20.6 (10-20); Calcium 8.1 mg/dl (8.5-10.1); Creatinine Clr Calc Pharmacy 44.1 ml/min; Est GFR (African American) 45.3; Est GFR (Non-African American) 39.1; Potassium 3.3 mmol/L (3.5-5.1)
[2018-06-24 09:48] LABS: Anisocytosis Present; Poikilocytosis Present; Polychromasia 1+; Spherocytes 1+
--- NOTE | 2018-06-24 16:13 | XRay Report ---
XR chest 1V portable CLINICAL HISTORY: new onset chest pain dyspnea COMPARISON STUDY: 06/23/2018 FINDINGS: Unchanged exam. Central catheter in superior vena cava. Mild stable cardiomegaly. Stable small left pleural effusion. Unchanging right basilar atelectasis. IMPRESSION: Stable exam with no change from the prior study. The above report was generated using voice recognition software. It may contain grammatical, syntax or spelling errors. Electronically signed by: Navid Serrano M.D. 06/24/2018 4:11 PM
--- NOTE | 2018-06-24 19:11 | Hospitalist Progress Note ---
Date of Service June 24, 2018 Assessment & Plan (1) Transfusion reaction: (2) Hypoxia: Uses supplemental oxygen at night regularly. She has been wearing it all day during this hospitalization, however, because she reports that it made her feel better. A CXR revealed no evidence of infiltrate or overload yesterday morning. Bumex 1mg BID was continued. She was given blood today, however, with the second unit start she developed a right sided chest pressure. This was associated with onset of worsened hypoxia. Blood was stopped and TRALI suspected. Vital signs did not change and she was not in any respiratory distress. Transfusion reaction order placed and workup performed by blood bank was initially negative. EKG did not reveal evidence of acute coronary syndrome. Repeat CXR was unremarkable. However, she was still given Lasix 40mg IV x one dose in place of her evening Bumex as she had crackles on lung exam this evening when re-evaluated for the chest pain, and with her degree of hypoxia, I am concerned that the xray is lagging behind the clinical picture. (CXR performed right away, when she was just starting to become hypoxic.) Also she was given Benadryl 25mg IV and Dexamethasone 8mg IV x one dose. Will monitor on telemetry overnight with supplementation. Consider further imaging overnight if she continues to decline. BIPAP initiated. Discussed case with stretcher helper who will continue management of her hypoxia. (3) Hypertension: Controlled with Bumex, Toprol XL and new addition of lisinopril 10mg PO daily this admission. Elevated creatinine is likely in response to this change, and she did receive her morning dose. Will hold in setting of weakness, hospitalization and Bumex administration to ensure no other issues may be contributing to an FREDDY. (4) CKD (chronic kidney disease), stage III: Elevation in creatinine of 30% expected in patient who recently started ACEI, especially in the setting of diuretics. BP is improved and she has otherwise tolerated this medication well. I do not suspect acute kidney injury, but will hold ACEI and trend BP and labwork. (5) DM type 2 (diabetes mellitus, type 2): Hgb A1C 7.7 05/13/18. Cont Lantus / NovoLog per protocol. Gave dexamethasone above so will monitor closely for elevation in blood sugar and consider increasing her insulin at least temporarily. However, currently NPO as BIPAP ordered per treatment plan above. 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 Cont Dapto per ID recs. Hold Lipitor while on Dapto. No evidence of mass or vegetation on TTE. No murmurs auscultated on exam. PAWAN not needed as blood cultures are not persistently positive and there is a likely source of infection with her leg wounds. Afebrile. (7) Anemia: 2/2 chronic disease. Repeat H/H reveals need for blood. Two units ordered. Held off on extra Lasix with this as she is getting her daily Bumex and creatinine is slightly elevated. (8) Cellulitis, leg: Resolved, antibiotics for bacteremia above. (9) ALL (acute lymphoblastic leukemia): Started her Sprycel on 06/17 and tolerating it without issue. (10) Thrombocytopenia: Remains >100K, no issues with bleeding (11) Secondary hyperparathyroidism: (12) Vitamin D deficiency: elevated PTH, likely 2/2 hyperparathyroidism 2/2 vit D deficiency. Hypocalcemia also likely 2/2 vit D deficiency. Cont with vitamin D replacement and repeat labs as outpatient with PCP. (13) Dyslipidemia: Hold atorvastatin while receiving daptomycin. (14) Elevated troponin: Serum troponin 0.130, 0.140, 0.150. No anginal symptoms. EKG shows NSR with nonspecific changes. Probable demand ischemia vs nonspecific elevation secondary to infection. No further workup at this time. (15) DVT prophylaxis: Higher risk for DVT in setting of active malignancy. recheck of labs this morning reveals worsened anemia requiring blood. Relative contraindication to Lovenox, not given. Cont with blood as above. SCD's. Ambulate as tolerated with assist. Full Code Dispo-to [facility] on Tuesday. Cont to mobilize OOB to chair/ambulation as tolerated. Angy Fontaine DO [facility] Hospitalist Subjective (afternoon)Reports generalized weakness with no changes She is getting OOB more per nurses, who have her ambulating to the bathroom and OOB to chair x 3 hours this am. Tolerating PO Afebrile Receiving irradiated blood and doing well with it. ADDENDUM (evening): sudden hypoxia while receiving blood and chest pressure during initiation of second unit of blood tonight. She is moaning and uncomfortable. Skin is warm and dry, vitals are stable and she is afebrile. She denies nausea but was made NPO. She is not tachypneic. Blood was stopped 2/2 concern of transfusion reaction. CXR doesn't reveal infiltrate or overt pulmonary edema, EKG SR without acute ischemic changes. Remains hypoxic. Initiated dexamethasone and benadryl for possible TRALI, gave additional diuretics for poss TACO, placed her on BIPAP. Transferred to telemetry. Discussed with stretcher helper who will cont hypoxia management overnight. Physical Exam Vital Signs (Past 24 Hours): Last Vital Signs Temp 37.4 C 06/24/18 18:41 Pulse 92 H 06/24/18 18:41 Resp 20 06/24/18 18:41 BP 137/55 L 06/24/18 18:41 Pulse Ox 89 L 06/24/18 18:41 CONSTITUTIONAL: obese, vitals as above, NAD EYES: normal conjuctivae, no scleral icterus RESPIRATORY: Normal respiratory effort, crackles at right base but lungs otherwise clear with good air movement. CARDIOVASCULAR: regular rate and rhythm, S1 and 2 heard without murmurs, gallops or rubs, no JVD, no peripheral edema GASTROINTESTINAL: soft, nontender, nondistended, no guarding. MUSCULOSKELETAL: generalized weakness, head is normocephalic and atraumatic SKIN: warm and dry, two separate areas on medial knees with vesicles on an erythematous base-localized, Improved, dried and crusting over. Erythema has resolved. NEUROLOGIC: CN 2-12 grossly intact, no sensory deficit, normal cognition, normal speech PSYCHIATRIC: alert cooperative and oriented to person, place and time. Flat affect
--- NOTE | 2018-06-24 22:16 | CT Scan Report ---
CT angio chest PE protocol CT DOSE: 555.99 mGy.cm HISTORY: Dyspnea hypoxemia TECHNIQUE: Multiaxial CT images of the chest were performed following the intravenous administration of contrast to evaluate the pulmonary arteries. Maximal intensity projection images were also obtaine d. A dose lowering technique was utilized adhering to the principles of ALARA. COMPARISON STUDY: None. FINDINGS: Findings consistent with extensive bilateral pulmonary emboli. There is a partial small jagjit iber saddle embolus. There is considerable emboli involving the proximal right and left the right low er pulmonary arterial structures centrally. There is significant ulnar emboli involving the left upper as well as left lower lobe pulmonary arter ial structures. Heart is moderately enlarged. There are bibasilar infiltrative changes with consolidative infiltrativ e changes in medial aspect left lung base. The thoracic aorta is normal in course and caliber. Pulmon jocy apices are considered generally clear. IMPRESSION: 1. Extensive bilateral pulmonary emboli. 2. Small caliber central saddle embolus. 3. No evidence for right heart strain. 4. Consolidative left and to lesser extent right basilar parenchymal infiltrative change. The above report was generated using voice recognition software. It may contain grammatical, syntax or spelling errors. Electronically signed by: Navid Serrano M.D. 06/24/2018 10:14 PM
--- NOTE | 2018-06-24 22:58 | Hospitalist Progress Note ---
Date of Service June 24, 2018 Assessment & Plan (1) Acute hypoxemic respiratory failure: Secondary to bilateral pulmonary embolism/saddle embolus Rule out LE DVT as source - patient refusing SCDs during confinement as per nursing documentation. Occult GI bleed ICU transfer Continue supplemental O2 Baseline ABG LE venous Dopplers rule DVT IV heparin with bolus as per corrosion control engineer (Dr. Mantilla's) recommendations. He additionally recommends checking troponin and lactic acid levels to guide decision regarding potential benefit from eval for suction embolectomy and catheter TPA. FULL CODE status reaffirmed by patient. Total critical time was 35 minutes. Subjective Patient persistently hypoxemic as per RN, BiPAP intolerant. O2 sats 90s on 13 L No unusual cough symptoms. Currently without chest pain. Physical Exam Vital Signs (Past 24 Hours): Last Vital Signs Temp 36.5 C 06/24/18 19:42 Pulse 89 06/24/18 19:54 Resp 18 06/24/18 19:54 BP 148/68 H 06/24/18 19:42 Pulse Ox 93 06/24/18 19:54 Physical Exam: GENERAL: uncomfortable, slightly anxious, obese, no respiratory distress SKIN: Pallor , warm HEENT: pale palpebral conjunctivae, no ptosis, dry buccal mucosa, O2 mask in place NECK : Supple, short neck, no tenderness CHEST : Decreased breath sounds, occasional expiratory wheeze, no tenderness HEART : RRR, no obvious murmurs ABDOMEN: Some distention, nontender RECTAL EXAM : Intact sphincter, yellow stool at the anal verge heme positive EXTREMITIES : minimal LE swelling, no tenderness, no other conspicuous deformities noted NEUROLOGIC : Coherent, no facial asymmetry, no other gross focality Results & Data Diagnostic Findings CTA: 1. Extensive bilateral pulmonary emboli. 2. Small caliber central saddle embolus. 3. No evidence for right heart strain. 4. Consolidative left and to lesser extent right basilar parenchymal infiltrative change.
[2018-06-24 23:06] LABS: HCO3 ABG 30 mmol/L (19-24); Oxygen Saturation ABG 93.1 % (90-95); PCO2 ABG 45 mmHg (35-46); PO2 ABG 74 mm/Hg (80-95); pH ABG 7.45 (7.35-7.45)
[2018-06-24 23:09] LABS: Allen Test Pos (Pos)
[2018-06-24 23:11] LABS: Basophils # (auto) 0.03 K/uL (0-0.2); Basophils % (auto) 0.4 %; Hematocrit (blood only) 30.8 % (37-47); Hemoglobin 9.7 g/dL (12.0-16.0); Immature Granulocytes # (auto) 0.04 K/uL (0.00-0.02); Immature Granulocytes % (auto) 0.5 %; Lymphocytes # (auto) 0.54 K/uL (1.2-3.4); Mean Corpuscular Hgb Conc 31.5 g/dL (32-36); Mean Corpuscular Volume 95.4 fL (80-100); Mean Platelet Volume 9.9 fL (7.4-10.4); Monocytes # (auto) 0.12 K/uL (0.11-0.59); Monocytes % (auto) 1.6 %; Neutrophils # (auto) 6.97 K/uL (1.4-6.5); Neutrophils % (auto) 90.5 %; Nucleated RBC # (auto) 0.02 K/uL (0-0); Nucleated RBC % (auto) 0.3 %; Platelet Count 142 K/uL (130-400); RDW Coefficient of Variation 21.3 % (11.5-14.5); RDW Standard Deviation 61.4 fL (36.4-46.3); Red Blood Count 3.23 M/uL (4.2-5.4)
[2018-06-24 23:14] LABS: Partial Thromboplastin Time 27.5 Seconds (21.0-31.0)
[2018-06-24 23:33] LABS: Creatinine Clr Calc Pharmacy 39.2 ml/min; Est GFR (African American) 39.3; Est GFR (Non-African American) 33.9; Magnesium 1.9 mg/dl (1.8-2.4)
[2018-06-25 00:09] LABS: Anisocytosis Present; Polychromasia 1+; Spherocytes Occasional
[2018-06-25 01:45] LABS: Troponin I 0.025 ng/ml (0-0.045)
[2018-06-25 05:01] LABS: Hematocrit (blood only) 29.8 % (37-47); Hemoglobin 9.4 g/dL (12.0-16.0); Mean Corpuscular Hgb Conc 31.5 g/dL (32-36); Mean Corpuscular Volume 95.2 fL (80-100); Mean Platelet Volume 10.2 fL (7.4-10.4); Nucleated RBC # (auto) 0.02 K/uL (0-0); Nucleated RBC % (auto) 0.3 %; Platelet Count 154 K/uL (130-400); RDW Coefficient of Variation 21.6 % (11.5-14.5); RDW Standard Deviation 63.9 fL (36.4-46.3); Red Blood Count 3.13 M/uL (4.2-5.4); White Blood Count 6.89 K/uL (4.8-10.8)
--- NOTE | 2018-06-25 05:18 | Critical Care Consultation ---
Date of Consultation June 25, 2018 Assessment & Plan (1) Pulmonary embolism: Reason Critically Ill: 72-year-old female with a LL and acute hypoxic respiratory failure secondary to saddle pulmonary emboli and mucoid impaction of the bronchus PLAN: Neuro: Depression -Reviewed mental health consult Resp: Acute hypoxic respiratory failure Pulmonary emboli -Will require long-term anticoagulation -Would highly consider filter placement given DVT -PESI score 121 class IV high risk for to 11% 30-day mortality -Patient tolerating heparin therapy no evidence of shock or troponin elevation, routine consult for filter placement as risk benefit analysis needs to be done in conjunction with patient and oncology as patient is high risk for thromboembolic disease secondary to malignancy Mucoid impaction of left lower lobe -Will require bronchoscopy -Would do this under optimal conditions with secured airway and appropriate n.p.o. guidelines -Mucomyst nebs 3 times daily today -Aggressive chest physiotherapy -Xopenex nebulizer -Incentive spirometry CV: Hypertension -Optimize beta-blockade -Increase beta-john to 50 mg daily No evidence of cor pulmonale -Troponin negative, BNP pending, lactic acid negative Dyslipidemia -Holding statin while on daptomycin Fluids/Renal: Chronic kidney disease stage III Acute kidney injury -Holding lisinopril ID: Gram-positive bacteremia: MRSA VRE bacteremia Cellulitis: Resolved per records -Reviewed infectious disease notes -Requires 21 days of IV daptomycin GI/Nutrition: Transaminitis: Mild -Current LFTs pending -Carb consistent diet -N.p.o. after midnight -Likely need high protein supplement Heme: Acute lymphoblastic leukemia - Sprycel and Prednisone Anemia -Question transfusion dependency Left lower extremity DVT -Routine vascular consult for filter Thrombocytopenia: Resolved DVT prophylaxis: Heparin infusion Endocrine: ICU hyperglycemia protocol Diabetes mellitus type 2 Hyperglycemia -This is likely secondary to steroids given dexamethasone -Insulin infusion Secondary hyperparathyroidism Vitamin D deficiency -Continue vitamin D supplementation Skin: Decubiti -Wound nurse following Vascular access: Single lumen PICC Code Status: DNR in event of cardiac arrest -Palliative care consult with regards to goals of care and future planning. Patient wishes daughter to make decisions in event she is incapacitated An extensive discussion regarding the patient's CODE STATUS and goals of care. She carries high risk for morbidity and mortality in event of cardiac arrest. If we were successful in resuscitating the patient cardiac arrest I will likely have created iatrogenic injuries during the resuscitative process. She would not want to undergo that form of medical treatment and accordingly wishes to be DO NOT RESUSCITATE DO NOT INTUBATE in event of cardiac arrest. She states she feels scared and is is is in agreement with the palliative care consult to further address some of her concerns and better address her priorities with regards to her medical goals. I have personally spent 80 minutes of critical care time in the direct m anagement of this patient. This is a life/limb threatening event. This includes time spent evaluating patient, direct bedside care, chart review, placing orders, interpretation of diagnostic studies, discussion with consultants, patient, and/or family members regarding treatment decisions, as well as other required patient management activities. This time is exclusive of all separately billable procedures, and teaching time and separate from and in addition to any other critical care service time. Present on Admission?: No (2) Mucoid impaction of bronchi: History of Present Illness Attending Physician: Angy Fontaine DO Allergies Allergy/AdvReac Type Severity Reaction Status Date / Time No Known Allergies Allergy Verified 06/12/18 17:53 Home Medications Home Medications Medication Instructions Recorded Confirmed Type atorvastatin 40 mg PO HS 04/05/18 06/12/18 History fluticasone-salmeterol [Advair 1 inh INHALATION BID 04/05/18 06/12/18 History Diskus] omeprazole 20 mg PO BID 04/05/18 06/12/18 History tramadol 50 mg PO Q6H PRN 04/05/18 06/12/18 History acyclovir 400 mg PO BID 06/09/18 06/12/18 History allopurinol 300 mg PO DAILY 06/09/18 06/12/18 History bumetanide 1 mg PO BID 06/09/18 06/12/18 History fluconazole 400 mg PO DAILY 06/09/18 06/12/18 History insulin aspart U-100 6 units SUBCUT TIDM 06/09/18 06/12/18 History insulin detemir U-100 [Levemir 14 units SUBCUT QPM 06/09/18 06/12/18 History FlexTouch U-100 Insuln] insulin detemir U-100 [Levemir 18 units SUBCUT QAM 06/09/18 06/12/18 History U-100 Insulin] metoprolol succinate 25 mg PO DAILY 06/09/18 06/12/18 History nitroglycerin [Nitrostat] 0.4 mg SUBLINGUAL DIRECTED PRN 06/09/18 06/12/18 History albuterol sulfate 2 puff INHALATION Q6H PRN 06/12/18 06/12/18 History dapsone 100 mg PO DAILY 06/12/18 06/12/18 History dasatinib [Sprycel] 70 mg PO BID 06/12/18 06/12/18 History dextrose [Glutose 15] 1 ea PO DIRECTED PRN 06/12/18 06/12/18 History escitalopram oxalate 5 mg PO DAILY 06/12/18 06/12/18 History fk-iv-gybi-FA-Ca carb-vit K 1 tab PO DAILY 06/12/18 06/12/18 History [Women's Multivitamin] prednisone See Rx Instructions .ROUTE .COMPLEX 06/12/18 06/12/18 History Patient History Medical History Lumbar disc disease (Chronic) Tobacco use (Resolved) Depression (Chronic) Splenomegaly (Chronic) ALL (acute lymphoblastic leukemia) (Chronic) Osteoarthritis (Chronic) GERD (gastroesophageal reflux disease) (Chronic) Nocturnal hypoxia (Chronic) Moderate COPD (chronic obstructive pulmonary disease) (Chronic) CKD (chronic kidney disease), stage III (Chronic) Dyslipidemia (Chronic) Hypertension (Chronic) DM type 2 (diabetes mellitus, type 2) (Chronic) Diabetes mellitus, type II (Inactive) EKG abnormalities (Inactive) GERD (gastroesophageal reflux disease) (Inactive) Ovarian cyst (Inactive) Diabetes mellitus Surgical History H/O tubal ligation (Chronic) History of cholecystectomy (Chronic) Social History Communication Ability: Effective Beliefs That Will Affect Care: None Current Living Situation: Alone Other Information That Helps Us Care for You: No Feels Safe at Home: Yes Smoking Status: Former smoker Hx Alcohol Use: No Hx Substance Use: No Physical Exam Vital Signs (Past 24 Hours): Last Vital Signs Temp 36.6 C 06/24/18 23:04 Pulse 94 H 06/25/18 01:42 Resp 14 06/25/18 01:42 BP 137/57 L 06/24/18 23:04 Pulse Ox 92 06/25/18 01:42 (1) Pulmonary embolism Pulmonary embolism type: saddle Chronicity: unspecified Acute cor pulmonale presence: without acute cor pulmonale Qualified Code(s): I26.92 - Saddle embolus of pulmonary artery without acute cor pulmonale
[2018-06-25 06:11] LABS: BUN Creatinine Ratio 21.5 (10-20); Calcium 7.9 mg/dl (8.5-10.1); Est GFR (African American) 37.8; Est GFR (Non-African American) 32.6; Magnesium 2.5 mg/dl (1.8-2.4); Potassium 4.4 mmol/L (3.5-5.1)
[2018-06-25 06:24] LABS: Beta-Hydroxybutyrate 11.06 mg/dl (0.2-2.81)
--- NOTE | 2018-06-25 06:50 | Ultrasound Report ---
BILATERAL LOWER EXTREMITY VENOUS DOPPLER HISTORY: Screening study for DVT within a patient with pulmonary emboli PE workup COMPARISON STUDY: CTA chest 06/24/2018, duplex venous Doppler study 06/13/2018. FINDINGS: RIGHT: Occlusive thrombus within the peroneal veins. The remaining deep venous structures of the right lower extremity appear normal. LEFT: Occlusive thrombus the distal popliteal vein and peroneal veins. The remaining deep venous structures of the left lower extremity appear normal. IMPRESSION: Bilateral occlusive deep venous thrombi as above. Electronically signed by: Aime Lynn M.D. 06/25/2018 6:49 AM
[2018-06-25 09:18] LABS: Partial Thromboplastin Ratio 4.9
--- NOTE | 2018-06-25 09:18 | Hospitalist Progress Note ---
Date of Service June 25, 2018 Assessment & Plan (1) Acute hypoxemic respiratory failure: Secondary to bilateral pulmonary embolism/saddle embolus Rule out LE DVT as source - patient refusing SCDs during confinement as per nursing documentation. Occult GI bleed ICU transfer Continue supplemental O2 Baseline ABG LE venous Dopplers rule DVT IV heparin with bolus as per well surveying engineer (Dr. Mantilla's) recommendations. He additionally recommends checking troponin and lactic acid levels to guide decision regarding potential benefit from eval for suction embolectomy and catheter TPA. FULL CODE status reaffirmed by patient. Total critical time was 35 minutes. Subjective Hypoxia overnight during blood transfusion. Transfusion was stopped during second unit infusion. Transfusion reaction assessment was performed with empiric dexamethasone, Benadryl, and Lasix therapy. Chest x-ray was clear. However, she continued to become hypoxic. CT angios revealed extensive bilateral pulmonary embolus and she was placed on a heparin drip overnight and sent to the ICU. This morning she reports her breathing is stable, and she is still requiring 15 L Via Oxymizer mask to maintain an oxygen saturation in the low 90s. She denies any chest pressure this morning and continues to report generalized weakness as she had in the past. She is otherwise asymptomatic and is asking for food. Physical Exam Vital Signs (Past 24 Hours): Last Vital Signs Temp 36.6 C 06/24/18 23:04 Pulse 94 H 06/25/18 01:42 Resp 14 06/25/18 01:42 BP 137/57 L 06/24/18 23:04 Pulse Ox 92 06/25/18 01:42 Results & Data Laboratory Results Short CBC 06/24/18 06/24/18 06/25/18 Range/Units 05:39 22:52 04:47 WBC 5.30 7.70 6.89 (4.8-10.8) K/uL Hgb 7.1 L 9.7 L 9.4 L (12.0-16.0) g/dL Hct 23.1 L 30.8 L 29.8 L (37-47) % Plt Count 143 142 154 (130-400) K/uL BMP 06/24/18 06/24/18 06/24/18 05:39 05:39 22:52 Sodium 140 136 Potassium 3.3 L 5.0 D Chloride 100 98 Carbon Dioxide 35 H 33 H BUN 28 H 31 H Creatinine 1.36 H 1.37 H 1.53 H Glucose 75 250 H Calcium 8.1 L 8.0 L 06/25/18 04:47 Sodium 136 Potassium 4.4 Chloride 97 L Carbon Dioxide 31 BUN 34 H Creatinine 1.58 H Glucose 346 H Calcium 7.9 L Cardiac Enzymes 06/24/18 06/24/18 Range/Units 05:39 22:52 Total Creatine Kinase 41 (26-192) U/L Troponin I 0.025 (0-0.045) ng/ml Liver Function 06/24/18 Range/Units 05:39 Albumin 2.0 L (3.4-5.0) gm/dl Medications Administered Current Inpatient Medications Acetaminophen (Tylenol) 650 mg PO Q4H PRN PRN Reason: Pain or Fever Stop: 07/12/18 20:31 Acyclovir (Zovirax) 400 mg PO BID [facility]; Protocol Stop: 07/18/18 20:59 Last Admin: 06/24/18 22:15 Dose: 400 mg Documented by: Allopurinol (Zyloprim) 300 mg PO DAILY [facility] Stop: 07/13/18 08:59 Last Admin: 06/24/18 08:16 Dose: 300 mg Documented by: Dapsone (Dapsone) 100 mg PO DAILY [facility] Stop: 07/13/18 08:59 Last Admin: 06/24/18 08:18 Dose: 100 mg Documented by: Dasatinib (Sprycel) 1 ea PO BID [facility] Stop: 07/17/18 13:59 Last Admin: 06/24/18 22:14 Dose: 1 ea Documented by: Dextrose (Dextrose 50%) 25 - 50 ml IV UD PRN; Protocol PRN Reason: Hypoglycemia Protocol Stop: 07/12/18 21:26 Escitalopram Oxalate (Lexapro) 5 mg PO DAILY [facility] Stop: 07/13/18 08:59 Last Admin: 06/24/18 08:16 Dose: 5 mg Documented by: Glucagon (Glucagen) 1 mg SQ UD PRN; Protocol PRN Reason: Hypoglycemia Protocol Stop: 07/12/18 21:26 Glucose (Glucose 40%) 15 - 30 gm PO UD PRN; Protocol PRN Reason: Hypoglycemia Protocol Stop: 07/12/18 21:26 Glucose (Dex4 Glucose) 4 - 8 tabs PO UD PRN; Protocol PRN Reason: Hypoglycemia Protocol Stop: 07/12/18 21:26 Daptomycin 450 mg/ Syringe 9 mls @ 4.5 mls/min IV Q24H [facility]; Protocol Stop: 07/05/18 01:59 Last Admin: 06/25/18 04:53 Dose: 4.5 mls/min Documented by: Sodium Chloride (Nss 1000ml) 1,000 mls @ 50 mls/hr IV .Q20H [facility] Stop: 07/25/18 01:16 Last Admin: 06/25/18 01:57 Dose: 50 mls/hr Documented by: Heparin Sodium/Dextrose (Heparin Sodium/Dextrose) 25,000 units in 500 mls @ 26 mls/hr IV .[id number] [facility]; Protocol Stop: 07/25/18 01:44 Last Titration: 06/25/18 07:18 Dose: 1,300 units/hr, 26 mls/hr Documented by: Insulin Aspart (Novolog Flexpen) 0 units SC Q6 [facility] Stop: 07/25/18 05:59 Last Admin: 06/25/18 07:23 Dose: 8 units Documented by: Insulin Glargine (Lantus Solostar Pen) 10 - 20 units SC Q12 [facility] Stop: 07/12/18 21:26 Last Admin: 06/25/18 07:20 Dose: 20 units Documented by: Metoprolol Succinate (Toprol Xl) 25 mg PO DAILY [facility] Stop: 07/13/18 08:59 Last Admin: 06/24/18 08:17 Dose: 25 mg Documented by: Miscellaneous (Carbohydrates For Hypoglycemia) 15 - 30 gm PO UD PRN PRN Reason: Hypoglycemia Treatment Stop: 07/12/18 21:26 Miscellaneous (Icu Protocol For Hyperglycemia) 1 ea N/A PRN PRN; Protocol PRN Reason: Hyperglycemia Protocol Stop: 06/27/18 01:16 Miscellaneous Information (Consult) 1 ea N/A UD PRN PRN Reason: Consult Stop: 07/12/18 22:20 Multivitamins/Minerals (Multivitamin W/ Minerals Tab) 1 tab PO DAILY [facility] Stop: 07/13/18 08:59 Last Admin: 06/24/18 08:17 Dose: 1 tab Documented by: Ondansetron HCl (Zofran) 4 mg IV Q8H PRN PRN Reason: Nausea Stop: 07/18/18 12:05 Last Admin: 06/20/18 01:54 Dose: 4 mg Documented by: Pantoprazole Sodium (Protonix) 40 mg PO BID [facility] Stop: 07/12/18 21:26 Last Admin: 06/24/18 22:13 Dose: 40 mg Documented by: Fluticasone/Salmeterol (Advair Diskus 250/50) 1 puffs INH BID [facility] Stop: 07/12/18 21:26 Last Admin: 06/24/18 22:05 Dose: 1 puffs Documented by: Tramadol HCl (Ultram) 50 mg PO Q6H PRN PRN Reason: Pain Stop: 07/12/18 21:26 Last Admin: 06/22/18 08:41 Dose: 50 mg Documented by:
[2018-06-25 09:22] LABS: Partial Thromboplastin Time 133.5 Seconds (21.0-31.0)
[2018-06-25 11:05] LABS: Partial Thromboplastin Ratio 3.7
[2018-06-25 11:21] LABS: Alanine Aminotransferase 98 U/L (12-78); Albumin Level 2.3 gm/dl (3.4-5.0); Alkaline Phosphatase 149 U/L (45-117); Aspartate Aminotransferase 26 U/L (15-37); Bilirubin Direct 0.2 mg/dl (0-0.2); Bilirubin,Total 0.7 mg/dl (0.2-1); NT Pro B Type Natriuretic Pept 287 pg/ml (0-900); Prealbumin 17.9 mg/dl (20-40); Total Protein 6.1 gm/dl (6.4-8.2); Troponin I < 0.015 ng/ml (0-0.045)
[2018-06-25 12:49] LABS: Partial Thromboplastin Ratio 1.8
--- NOTE | 2018-06-25 13:17 | Hospitalist Progress Note ---
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 Considering intra-a rterial TPA-defer to ICU attending. He does not appear the patient had a transfusion reaction, TRALI or TACO are unlikely because of symptoms in the setting of acute bilateral PE. Continue supplemental oxygen for persistent hypoxia. Atelectasis likely contributing to hypoxia. Lisinopril was held in setting of elevated creatinine, but it should be reported here that creatinine appropriately went up by 30% after starting that this admission. H&H with appropriate response to blood given last night. She appears to be transfusion dependent in setting of AML on chemotherapy. Blood thinners may be possible moving forward, however, if not desirable, may consider IVC filter. Defer this to hematology/oncology and ICU attending. CODE STATUS changed to DO NOT RESUSCITATE Disposition-continue ICU Angy Fontaine DO [facility] Hospitalist Subjective Hypoxia overnight during blood transfusion. Transfusion was stopped during second unit infusion. Transfusion reaction assessment was performed with empiric dexamethasone, Benadryl, and Lasix therapy. Chest x-ray was clear. However, she continued to become hypoxic. CT angios revealed extensive bilateral pulmonary embolus and she was placed on a heparin drip overnight and sent to the ICU. This morning she reports her breathing is stable, and she is still requiring 15 L Via Oxymizer mask to maintain an oxygen saturation in the low 90s. She denies any chest pressure this morning and continues to report generalized weakness as she had in the past. She is otherwise asymptomatic and is asking for food. Physical Exam Vital Signs (Past 24 Hours): Last Vital Signs Temp 37.2 C 06/25/18 11:00 Pulse 98 H 06/25/18 11:00 Resp 20 06/25/18 11:00 BP 155/54 H 06/25/18 11:00 Pulse Ox 92 06/25/18 11:00 CONSTITUTIONAL: obese, vitals as above, NAD EYES: normal conjuctivae, no scleral icterus RESPIRATORY: Normal respiratory effort, crackles at right base but lungs otherwise clear with good air movement. CARDIOVASCULAR: regular rate and rhythm, S1 and 2 heard without murmurs, gallops or rubs, no JVD, no peripheral edema GASTROINTESTINAL: soft, nontender, nondistended, no guarding. MUSCULOSKELETAL: generalized weakness, head is normocephalic and atraumatic SKIN: warm and dry, two separate areas on medial knees with vesicles on an erythematous base-localized, Improved, dried and crusting over. Erythema has resolved. NEUROLOGIC: CN 2-12 grossly intact, no sensory deficit, normal cognition, normal speech PSYCHIATRIC: alert cooperative and oriented to person, place and time. Flat affect Results & Data Laboratory Results Short CBC 06/24/18 06/25/18 Range/Units 22:52 04:47 WBC 7.70 6.89 (4.8-10.8) K/uL Hgb 9.7 L 9.4 L (12.0-16.0) g/dL Hct 30.8 L 29.8 L (37-47) % Plt Count 142 154 (130-400) K/uL BMP 06/24/18 06/25/18 22:52 04:47 Sodium 136 136 Potassium 5.0 D 4.4 Chloride 98 97 L Carbon Dioxide 33 H 31 BUN 31 H 34 H Creatinine 1.53 H 1.58 H Glucose 250 H 346 H Calcium 8.0 L 7.9 L Cardiac Enzymes 06/24/18 06/25/18 Range/Units 22:52 10:20 Troponin I 0.025 < 0.015 (0-0.045) ng/ml Liver Function 06/25/18 Range/Units 10:20 Total Bilirubin 0.7 (0.2-1) mg/dl Direct Bilirubin 0.2 (0-0.2) mg/dl AST 26 (15-37) U/L ALT 98 H (12-78) U/L Alkaline Phosphatase 149 H (45-117) U/L Albumin 2.3 L (3.4-5.0) gm/dl Medications Administered Current Inpatient Medications Acetaminophen (Tylenol) 650 mg PO Q4H PRN PRN Reason: Pain or Fever Stop: 07/12/18 20:31 Acetylcysteine (Mucomyst-10) 10 ml INH TID MOIRA Stop: 06/26/18 09:01 Acyclovir (Zovirax) 400 mg PO BID [facility]; Protocol Stop: 07/18/18 20:59 Last Admin: 06/25/18 11:10 Dose: 400 mg Documented by: Allopurinol (Zyloprim) 300 mg PO DAILY MOIRA Stop: 07/13/18 08:59 Last Admin: 06/25/18 09:36 Dose: 300 mg Documented by: Dapsone (Dapsone) 100 mg PO DAILY MOIRA Stop: 07/13/18 08:59 Last Admin: 06/25/18 09:37 Dose: 100 mg Documented by: Dasatinib (Sprycel) 1 ea PO BID MOIRA Stop: 07/17/18 13:59 Last Admin: 06/25/18 09:35 Dose: 1 ea Documented by: Dextrose (Dextrose 50%) 25 - 50 ml IV UD PRN; Protocol PRN Reason: Hypoglycemia Protocol Stop: 07/12/18 21:26 Escitalopram Oxalate (Lexapro) 5 mg PO DAILY MOIRA Stop: 07/13/18 08:59 Last Admin: 06/25/18 09:35 Dose: 5 mg Documented by: Glucagon (Glucagen) 1 mg SQ UD PRN; Protocol PRN Reason: Hypoglycemia Protocol Stop: 07/12/18 21:26 Glucose (Glucose 40%) 15 - 30 gm PO UD PRN; Protocol PRN Reason: Hypoglycemia Protocol Stop: 07/12/18 21:26 Glucose (Dex4 Glucose) 4 - 8 tabs PO UD PRN; Protocol PRN Reason: Hypoglycemia Protocol Stop: 07/12/18 21:26 Daptomycin 450 mg/ Syringe 9 mls @ 4.5 mls/min IV Q24H MOIRA; Protocol Stop: 07/05/18 01:59 Last Admin: 06/25/18 04:53 Dose: 4.5 mls/min Documented by: Sodium Chloride (Nss 1000ml) 1,000 mls @ 50 mls/hr IV .Q20H MOIRA Stop: 07/25/18 01:16 Last Admin: 06/25/18 01:57 Dose: 50 mls/hr Documented by: Heparin Sodium/Dextrose (Heparin Sodium/Dextrose) 25,000 units in 500 mls @ 22 mls/hr IV .[id number] MOIRA; Protocol Stop: 07/25/18 01:44 Last Titration: 06/25/18 13:00 Dose: 1,100 units/hr, 22 mls/hr Documented by: Insulin Human Regular 250 (units/ Sodium Chloride) 250 mls @ 2.4 mls/hr IV .Q24H MOIRA; Protocol Stop: 07/25/18 12:29 Last Admin: 06/25/18 13:02 Dose: 2.4 units/hr, 2.4 mls/hr Documented by: Insulin Aspart (Novolog Flexpen) 0 units SC HS MOIRA Stop: 07/25/18 12:59 Last Admin: 06/25/18 13:02 Dose: Not Given Documented by: Levalbuterol HCl (Xopenex 0.63 Mg/3 Ml Neb) 0.63 mg NEB TID PRN PRN Reason: Wheezing Stop: 07/25/18 13:59 Metoprolol Succinate (Toprol Xl) 50 mg PO DAILY MOIRA Stop: 07/26/18 08:59 Miscellaneous (Carbohydrates For Hypoglycemia) 15 - 30 gm PO UD PRN PRN Reason: Hypoglycemia Treatment Stop: 07/12/18 21:26 Miscellaneous (Icu Protocol For Hyperglycemia) 1 ea N/A PRN PRN; Protocol PRN Reason: Hyperglycemia Protocol Stop: 06/27/18 01:16 Miscellaneous Information (Consult) 1 ea N/A UD PRN PRN Reason: Consult Stop: 07/12/18 22:20 Multivitamins/Minerals (Multivitamin W/ Minerals Tab) 1 tab PO DAILY MOIRA Stop: 07/13/18 08:59 Last Admin: 06/25/18 09:35 Dose: 1 tab Documented by: Ondansetron HCl (Zofran) 4 mg IV Q8H PRN PRN Reason: Nausea Stop: 07/18/18 12:05 Last Admin: 06/20/18 01:54 Dose: 4 mg Documented by: Pantoprazole Sodium (Protonix) 40 mg PO BID MOIRA Stop: 07/12/18 21:26 Last Admin: 06/25/18 09:35 Dose: 40 mg Documented by: Fluticasone/Salmeterol (Advair Diskus 250/50) 1 puffs INH BID MOIRA Stop: 07/12/18 21:26 Last Admin: 06/25/18 09:37 Dose: 1 puffs Documented by: Tramadol HCl (Ultram) 50 mg PO Q6H PRN PRN Reason: Pain Stop: 07/12/18 21:26 Last Admin: 06/22/18 08:41 Dose: 50 mg Documented by: (1) Pulmonary embolism Pulmonary embolism type: saddle Chronicity: unspecified Acute cor pulmonale presence: without acute cor pulmonale Qualified Code(s): I26.92 - Saddle embolus of pulmonary artery without acute cor pulmonale
[2018-06-25 19:41] LABS: Partial Thromboplastin Ratio 2.4
[2018-06-25 19:59] LABS: Partial Thromboplastin Time 66.3 Seconds (21.0-31.0)
[2018-06-26 02:01] LABS: Partial Thromboplastin Ratio 3.3
[2018-06-26 02:19] LABS: Partial Thromboplastin Time 89.5 Seconds (21.0-31.0)
[2018-06-26 05:43] LABS: INR 1.2 (0.9-1.1); Prothrombin Time 11.7 Seconds (9.0-12.0)
--- NOTE | 2018-06-26 07:31 | Critical Care Progress Note ---
Date of Service June 26, 2018 Assessment & Plan (1) Pulmonary embolism: Reason Critically Ill: 72-year-old female with a LL and acute hypoxic respiratory failure secondary to saddle pulmonary emboli and mucoid impaction of the bronchus PLAN: Neuro: Depression -Reviewed mental health consult Resp: Acute hypoxic respiratory failure Pulmonary emboli -Will require long-term anticoagulation -Would highly consider filter placement given DVT -PESI score 121 class IV high risk for to 11% 30-day mortality -Patient tolerating heparin therapy no evidence of shock or troponin elevation, routine consult for filter placement as risk benefit analysis needs to be done in conjunction with patient and oncology as patient is high Risk for thromboembolic disease secondary to malignancy Mucoid impaction of left lower lobe -Discussed risks and benefits, patient declined intubation and bronchoscopy and awake bronchoscopy -Would do this under optimal conditions with secured airway and appropriate n.p.o. guidelines -Mucomyst nebs 3 times daily today -Aggressive chest physiotherapy - Patient refused yesterday is agreeable today. We discussed if we were to undergo bronchoscopy she must be willing to participate in physiotherapy as mucoid impaction would be likely to recur -Xopenex nebulizer -Incentive spirometry CV: Hypertension -Optimize beta-blockade -Increase beta-john to 50 mg daily No evidence of cor pulmonale -Troponin negative, BNP pending, lactic acid negative -Echo reviewed right ventricular function reported as normal Dyslipidemia -Holding statin while on daptomycin Fluids/Renal: Chronic kidney disease stage III Acute kidney injury -Holding lisinopril ID: Gram-positive bacteremia: MRSA VRE bacteremia Cellulitis: Resolved per records -Reviewed infectious disease notes -Requires 21 days of IV daptomycin GI/Nutrition: Transaminitis: Mild -Current LFTs pending -Carb consistent diet -N.p.o. after midnight -Likely need high protein supplement Heme: Acute lymphoblastic leukemia - Sprycel and Prednisone Anemia -Question transfusion dependency Left lower extremity DVT -Reviewed vascular consult, no indication for filter Thrombocytopenia: Resolved DVT prophylaxis: Heparin infusion Endocrine: ICU hyperglycemia protocol Diabetes mellitus type 2 Hyperglycemia -This is likely secondary to steroids given dexamethasone -Insulin infusion Secondary hyperparathyroidism Vitamin D deficiency -Continue vitamin D supplementation Skin: Decubiti -Wound nurse following Vascular access: Single lumen PICC Code Status: DNR in event of cardiac arrest -Palliative care consult with regards to goals of care and future planning. Patient wishes daughter to make decisions in event she is incapacitated An extensive discussion regarding the patient's CODE STATUS and goals of care. She carries high risk for morbidity and mortality in event of cardiac arrest. If we were successful in resuscitating the patient cardiac arrest I will likely have created iatrogenic injuries during the resuscitative process. She would not want to undergo that form of medical treatment and accordingly wishes to be DO NOT RESUSCITATE DO NOT INTUBATE in event of cardiac arrest. She states she feels scared and is is is in agreement with the palliative care consult to further address some of her concerns and better address her priorities with regards to her medical goals. Patient was discussed in multidisciplinary rounds. Also discussed the patient with the hospitalist service Dr. Fontaine Patient has declined intubation for respiratory insufficiency She has declined bronchoscopy for mucoid impaction. If additional respiratory distress is encountered I would consider noninvasive mechanical ventilation but this would obviously make mucoid impaction worse. We have essentially reached maximum respiratory therapy and she is stable for downgrade from the ICU. (2) Mucoid impaction of bronchi: Subjective No overnight events, subjective dyspnea improved. Staff reports patient had refused aggressive pulmonary toilet, nebulizers. Physical Exam Vital Signs (Past 24 Hours): Last Vital Signs Temp 37.3 C 06/25/18 18:00 Pulse 96 H 06/25/18 18:59 Resp 18 06/25/18 18:59 BP 139/48 L 06/25/18 18:00 Pulse Ox 93 06/25/18 18:59 General: Alert. nontoxic. Skin: Warm, dry, Head: Atraumatic Ears, nose, mouth and throat: airway patent Cardiovascular: Normal peripheral perfusion Respiratory: no respiratory distress, Able to speak in full sentences Gastrointestinal: Non distended Musculoskeletal: No deformity Results & Data Laboratory Results 06/26/18 06/26/18 06/26/18 Range/Units 08:37 06:18 05:10 PT (9.0-12.0) Seconds INR (0.9-1.1) APTT 74.9 H* (21.0-31.0) Seconds PTT Ratio 2.8 POC Glucose 166 H 161 H (70-99) Phosphorus (2.5-4.9) mg/dl Transfusion React Date Transfusion React Time Tx React Symptoms Reaction Clerical Check Lab Clerical Err Check React Component Return Volume Returned Pre-Trans Blood Type Pre-Trans Vis Hemolysis Pre-Trans VEGA (Negative) Pre-Trans VEGA IgG (Negative) Pre-Trans VEGA Poly (Negative) Pre-Trans VEGA C3b, C3d (Negative) Post-Trans Blood Type Post-Tx Visible Hemolys Post-Trans VEGA (Negative) Post-Trans VEGA IgG (Negative) Post-Trans VEGA Poly (Negative) Post-Trans VEGA C3b, C3d (Negative) Post-Trans Ur Hemoglobin Reaction Path Interpret Transfusion Serv [facility] 06/26/18 06/26/18 06/26/18 Range/Units 05:09 05:09 03:02 PT 11.7 (9.0-12.0) Seconds INR 1.2 H (0.9-1.1) APTT (21.0-31.0) Seconds PTT Ratio POC Glucose 156 H (70-99) Phosphorus 3.8 (2.5-4.9) mg/dl Transfusion React Date Transfusion React Time Tx React Symptoms Reaction Clerical Check Lab Clerical Err Check React Component Return Volume Returned Pre-Trans Blood Type Pre-Trans Vis Hemolysis Pre-Trans VEGA (Negative) Pre-Trans VEGA IgG (Negative) Pre-Trans VEGA Poly (Negative) Pre-Trans VEGA C3b, C3d (Negative) Post-Trans Blood Type Post-Tx Visible Hemolys Post-Trans VEGA (Negative) Post-Trans VEGA IgG (Negative) Post-Trans VEGA Poly (Negative) Post-Trans VEGA C3b, C3d (Negative) Post-Trans Ur Hemoglobin Reaction Path Interpret Transfusion Serv [facility] 06/26/18 06/26/18 06/26/18 Range/Units 01:35 01:23 01:15 PT (9.0-12.0) Seconds INR (0.9-1.1) APTT 89.5 H* (21.0-31.0) Seconds PTT Ratio 3.3 POC Glucose 133 H 132 H (70-99) Phosphorus (2.5-4.9) mg/dl Transfusion React Date Transfusion React Time Tx React Symptoms Reaction Clerical Check Lab Clerical Err Check React Component Return Volume Returned Pre-Trans Blood Type Pre-Trans Vis Hemolysis Pre-Trans VEGA (Negative) Pre-Trans VEGA IgG (Negative) Pre-Trans VEGA Poly (Negative) Pre-Trans VEGA C3b, C3d (Negative) Post-Trans Blood Type Post-Tx Visible Hemolys Post-Trans VEGA (Negative) Post-Trans VEGA IgG (Negative) Post-Trans VEGA Poly (Negative) Post-Trans VEGA C3b, C3d (Negative) Post-Trans Ur Hemoglobin Reaction Path Interpret Transfusion Serv [facility] 06/26/18 06/26/18 06/26/18 Range/Units 00:57 00:41 00:20 PT (9.0-12.0) Seconds INR (0.9-1.1) APTT (21.0-31.0) Seconds PTT Ratio POC Glucose 122 H 118 H 110 H (70-99) Phosphorus (2.5-4.9) mg/dl Transfusion React Date Transfusion React Time Tx React Symptoms Reaction Clerical Check Lab Clerical Err Check React Component Return Volume Returned Pre-Trans Blood Type Pre-Trans Vis Hemolysis Pre-Trans VEGA (Negative) Pre-Trans VEGA IgG (Negative) Pre-Trans VEGA Poly (Negative) Pre-Trans VEGA C3b, C3d (Negative) Post-Trans Blood Type Post-Tx Visible Hemolys Post-Trans VEGA (Negative) Post-Trans VEGA IgG (Negative) Post-Trans VEGA Poly (Negative) Post-Trans VEGA C3b, C3d (Negative) Post-Trans Ur Hemoglobin Reaction Path Interpret Transfusion Serv [facility] 06/25/18 06/25/18 06/25/18 Range/Units 23:24 23:05 22:01 PT (9.0-12.0) Seconds INR (0.9-1.1) APTT (21.0-31.0) Seconds PTT Ratio POC Glucose 153 H 109 H 140 H (70-99) Phosphorus (2.5-4.9) mg/dl Transfusion React Date Transfusion React Time Tx React Symptoms Reaction Clerical Check Lab Clerical Err Check React Component Return Volume Returned Pre-Trans Blood Type Pre-Trans Vis Hemolysis Pre-Trans VEGA (Negative) Pre-Trans VEGA IgG (Negative) Pre-Trans VEGA Poly (Negative) Pre-Trans VEGA C3b, C3d (Negative) Post-Trans Blood Type Post-Tx Visible Hemolys Post-Trans VEGA (Negative) Post-Trans VEGA IgG (Negative) Post-Trans VEGA Poly (Negative) Post-Trans VEGA C3b, C3d (Negative) Post-Trans Ur Hemoglobin Reaction Path Interpret Transfusion Serv [facility] 06/25/18 06/25/18 06/25/18 Range/Units 21:03 20:06 19:13 PT (9.0-12.0) Seconds INR (0.9-1.1) APTT (21.0-31.0) Seconds PTT Ratio POC Glucose 167 H 219 H 244 H (70-99) Phosphorus (2.5-4.9) mg/dl Transfusion React Date Transfusion React Time Tx React Symptoms Reaction Clerical Check Lab Clerical Err Check React Component Return Volume Returned Pre-Trans Blood Type Pre-Trans Vis Hemolysis Pre-Trans VEGA (Negative) Pre-Trans VEGA IgG (Negative) Pre-Trans VEGA Poly (Negative) Pre-Trans VEGA C3b, C3d (Negative) Post-Trans Blood Type Post-Tx Visible Hemolys Post-Trans VEGA (Negative) Post-Trans VEGA IgG (Negative) Post-Trans VEGA Poly (Negative) Post-Trans VEGA C3b, C3d (Negative) Post-Trans Ur Hemoglobin Reaction Path Interpret Transfusion Serv [facility] 06/25/18 06/25/18 06/25/18 Range/Units 19:12 18:07 16:53 PT (9.0-12.0) Seconds INR (0.9-1.1) APTT 66.3 H* (21.0-31.0) Seconds PTT Ratio 2.4 POC Glucose 235 H 181 H (70-99) Phosphorus (2.5-4.9) mg/dl Transfusion React Date Transfusion React Time Tx React Symptoms Reaction Clerical Check Lab Clerical Err Check React Component Return Volume Returned Pre-Trans Blood Type Pre-Trans Vis Hemolysis Pre-Trans VEGA (Negative) Pre-Trans VEGA IgG (Negative) Pre-Trans VEGA Poly (Negative) Pre-Trans VEGA C3b, C3d (Negative) Post-Trans Blood Type Post-Tx Visible Hemolys Post-Trans VEGA (Negative) Post-Trans VEGA IgG (Negative) Post-Trans VEGA Poly (Negative) Post-Trans VEGA C3b, C3d (Negative) Post-Trans Ur Hemoglobin Reaction Path Interpret Transfusion Serv [facility] 06/25/18 06/25/18 06/25/18 Range/Units 16:05 14:58 14:00 PT (9.0-12.0) Seconds INR (0.9-1.1) APTT (21.0-31.0) Seconds PTT Ratio POC Glucose 199 H 270 H 254 H (70-99) Phosphorus (2.5-4.9) mg/dl Transfusion React Date Transfusion React Time Tx React Symptoms Reaction Clerical Check Lab Clerical Err Check React Component Return Volume Returned Pre-Trans Blood Type Pre-Trans Vis Hemolysis Pre-Trans VEGA (Negative) Pre-Trans VEGA IgG (Negative) Pre-Trans VEGA Poly (Negative) Pre-Trans VEGA C3b, C3d (Negative) Post-Trans Blood Type Post-Tx Visible Hemolys Post-Trans VEGA (Negative) Post-Trans VEGA IgG (Negative) Post-Trans VEGA Poly (Negative) Post-Trans VEGA C3b, C3d (Negative) Post-Trans Ur Hemoglobin Reaction Path Interpret Transfusion Serv Com 06/25/18 06/24/18 Range/Units 11:51 17:29 PT (9.0-12.0) Seconds INR (0.9-1.1) APTT 49.0 H* (21.0-31.0) Seconds PTT Ratio 1.8 POC Glucose (70-99) Phosphorus (2.5-4.9) mg/dl Transfusion React Date 06/24/18 Transfusion React Time 1640 Tx React Symptoms Hypoxia, Chest pain Reaction Clerical Check None Found Lab Clerical Err Check None Found React Component Return PCLRIRR Volume Returned 190 Pre-Trans Blood Type A POSITIVE Pre-Trans Vis Hemolysis No Pre-Trans VEGA Negative (Negative) Pre-Trans VEGA IgG Neg (Negative) Pre-Trans VEGA Poly Neg (Negative) Pre-Trans VEGA C3b, C3d Neg (Negative) Post-Trans Blood Type A POSITIVE Post-Tx Visible Hemolys No Post-Trans VEGA Negative (Negative) Post-Trans VEGA IgG Neg (Negative) Post-Trans VEGA Poly Neg (Negative) Post-Trans VEGA C3b, C3d Neg (Negative) Post-Trans Ur Hemoglobin No urine provided Reaction Path Interpret Transfusion Serv Com (1) Pulmonary embolism Pulmonary embolism type: saddle Chronicity: unspecified Acute cor pulmonale presence: without acute cor pulmonale Qualified Code(s): I26.92 - Saddle embolus of pulmonary artery without acute cor pulmonale
--- NOTE | 2018-06-26 08:00 | Hospitalist Progress Note ---
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 Vascular surgery consulted to consider IVC filter. Hematology consulted to continue the discussion of IVC filter versus long-term anticoagulation in setting of PE which will need to be treated a minimum of 3 months. Currently she is not having bleeding, but is transfusion dependent. Will trend CBC daily. The patient did not appear to have a transfusion reaction to irradiated blood. Continue supplemental oxygen for persistent hypoxia. Transfer to PCU for continued monitoring. Atelectasis may be contributing to hypoxia. Lisinopril was added this admission for elevated blood pressure, and held yesterday when transferred to ICU. Blood pressure has remained stable without re-administration of lisinopril, continue to be held in the setting of FREDDY. Bumex also on hold in setting of AK I. Intra-arterial TPA for saddle embolus will not be pursued. Continue supportive care. Continue trending lab work. Continue anticoagulation plan per hematology. Ultimately transfer to [facility]. Continue Sprycel for treatment of ALL. CODE STATUS changed to DO NOT RESUSCITATE Disposition-transfer to PCU Angy Fontaine DO [facility] Hospitalist Subjective No changes overnight. Continues to have need of 8 L via oxygen mask. Reports shortness of breath has not changed. Asking if she can eat. Denies pain. Afebrile. Physical Exam Vital Signs (Past 24 Hours): Last Vital Signs Temp 37.3 C 06/25/18 18:00 Pulse 96 H 06/25/18 18:59 Resp 18 06/25/18 18:59 BP 139/48 L 06/25/18 18:00 Pulse Ox 93 06/25/18 18:59 CONSTITUTIONAL: obese, vitals as above, NAD EYES: normal conjuctivae, no scleral icterus RESPIRATORY: Normal respiratory effort, crackles at right base but lungs otherwise clear with good air movement. CARDIOVASCULAR: regular rate and rhythm, S1 and 2 heard without murmurs, gallops or rubs, no JVD, no peripheral edema GASTROINTESTINAL: soft, nontender, nondistended, no guarding. MUSCULOSKELETAL: generalized weakness, head is normocephalic and atraumatic SKIN: warm and dry NEUROLOGIC: CN 2-12 grossly intact, no sensory deficit, normal cognition, normal speech PSYCHIATRIC: alert cooperative and oriented to person, place and time. Flat affect Results & Data Laboratory Results Cardiac Enzymes 06/25/18 Range/Units 10:20 Troponin I < 0.015 (0-0.045) ng/ml Liver Function 06/25/18 Range/Units 10:20 Total Bilirubin 0.7 (0.2-1) mg/dl Direct Bilirubin 0.2 (0-0.2) mg/dl AST 26 (15-37) U/L ALT 98 H (12-78) U/L Alkaline Phosphatase 149 H (45-117) U/L Albumin 2.3 L (3.4-5.0) gm/dl Medications Administered Current Inpatient Medications Acetaminophen (Tylenol) 650 mg PO Q4H PRN PRN Reason: Pain or Fever Stop: 07/12/18 20:31 Acetylcysteine (Mucomyst-10) 10 ml INH TID [facility] Stop: 06/26/18 09:01 Last Admin: 06/26/18 07:42 Dose: Not Given Documented by: Acyclovir (Zovirax) 400 mg PO BID [facility]; Protocol Stop: 07/18/18 20:59 Last Admin: 06/25/18 21:20 Dose: 400 mg Documented by: Allopurinol (Zyloprim) 300 mg PO DAILY [facility] Stop: 07/13/18 08:59 Last Admin: 06/25/18 09:36 Dose: 300 mg Documented by: Dapsone (Dapsone) 100 mg PO DAILY [facility] Stop: 07/13/18 08:59 Last Admin: 06/25/18 09:37 Dose: 100 mg Documented by: Dasatinib (Sprycel) 1 ea PO BID [facility] Stop: 07/17/18 13:59 Last Admin: 06/25/18 21:21 Dose: 1 ea Documented by: Dextrose (Dextrose 50%) 25 - 50 ml IV UD PRN; Protocol PRN Reason: Hypoglycemia Protocol Stop: 07/12/18 21:26 Escitalopram Oxalate (Lexapro) 5 mg PO DAILY [facility] Stop: 07/13/18 08:59 Last Admin: 06/25/18 09:35 Dose: 5 mg Documented by: Glucagon (Glucagen) 1 mg SQ UD PRN; Protocol PRN Reason: Hypoglycemia Protocol Stop: 07/12/18 21:26 Glucose (Glucose 40%) 15 - 30 gm PO UD PRN; Protocol PRN Reason: Hypoglycemia Protocol Stop: 07/12/18 21:26 Glucose (Dex4 Glucose) 4 - 8 tabs PO UD PRN; Protocol PRN Reason: Hypoglycemia Protocol Stop: 07/12/18 21:26 Daptomycin 450 mg/ Syringe 9 mls @ 4.5 mls/min IV Q24H [facility]; Protocol Stop: 07/05/18 01:59 Last Admin: 06/26/18 03:54 Dose: 4.5 mls/min Documented by: Sodium Chloride (Nss 1000ml) 1,000 mls @ 50 mls/hr IV .Q20H [facility] Stop: 07/25/18 01:16 Last Admin: 06/25/18 21:22 Dose: 50 mls/hr Documented by: Heparin Sodium/Dextrose (Heparin Sodium/Dextrose) 25,000 units in 500 mls @ 19 mls/hr IV .Q24H [facility]; Protocol Stop: 07/25/18 01:44 Last Titration: 06/26/18 07:20 Dose: 950 units/hr, 19 mls/hr Documented by: Insulin Human Regular 250 (units/ Sodium Chloride) 250 mls @ 1.4 mls/hr IV .Q24H [facility]; Protocol Stop: 07/25/18 12:29 Last Titration: 06/26/18 01:35 Dose: 0 units/hr, 0 mls/hr Documented by: Insulin Aspart (Novolog Flexpen) 0 units SC [facility] Stop: 07/25/18 12:59 Last Admin: 06/25/18 21:21 Dose: Not Given Documented by: Levalbuterol HCl (Xopenex 0.63 Mg/3 Ml Neb) 0.63 mg NEB TID PRN PRN Reason: Wheezing Stop: 07/25/18 13:59 Last Admin: 06/25/18 18:56 Dose: 0.63 mg Documented by: Metoprolol Succinate (Toprol Xl) 50 mg PO DAILY [facility] Stop: 07/26/18 08:59 Miscellaneous (Carbohydrates For Hypoglycemia) 15 - 30 gm PO UD PRN PRN Reason: Hypoglycemia Treatment Stop: 07/12/18 21:26 Miscellaneous (Icu Protocol For Hyperglycemia) 1 ea N/A PRN PRN; Protocol PRN Reason: Hyperglycemia Protocol Stop: 06/27/18 01:16 Miscellaneous Information (Consult) 1 ea N/A UD PRN PRN Reason: Consult Stop: 07/12/18 22:20 Multivitamins/Minerals (Multivitamin W/ Minerals Tab) 1 tab PO DAILY [facility] Stop: 07/13/18 08:59 Last Admin: 06/25/18 09:35 Dose: 1 tab Documented by: Ondansetron HCl (Zofran) 4 mg IV Q8H PRN PRN Reason: Nausea Stop: 07/18/18 12:05 Last Admin: 06/20/18 01:54 Dose: 4 mg Documented by: Pantoprazole Sodium (Protonix) 40 mg PO BID [facility] Stop: 07/12/18 21:26 Last Admin: 06/25/18 21:20 Dose: 40 mg Documented by: Fluticasone/Salmeterol (Advair Diskus 250/50) 1 puffs INH BID [facility] Stop: 07/12/18 21:26 Last Admin: 06/25/18 21:19 Dose: 1 puffs Documented by: Tramadol HCl (Ultram) 50 mg PO Q6H PRN PRN Reason: Pain Stop: 07/12/18 21:26 Last Admin: 06/22/18 08:41 Dose: 50 mg Documented by: (1) Pulmonary embolism Acute cor pulmonale presence: without acute cor pulmonale Chronicity: unspecified Pulmonary embolism type: saddle Qualified Code(s): I26.92 - Saddle embolus of pulmonary artery without acute cor pulmonale
[2018-06-26 09:27] LABS: Partial Thromboplastin Ratio 2.8
[2018-06-26 09:38] LABS: Partial Thromboplastin Time 74.9 Seconds (21.0-31.0)
--- NOTE | 2018-06-26 09:46 | Consultation ---
Date of Consultation June 26, 2018 Assessment & Plan (1) Pulmonary embolism: Pt also seen by Dr Dominique. Pt currently on heparin drip, does not demonstrate signs of active bleeding. No indications for IVC filter insertion at this time. Discussed with pt, she understands. Please call if needed. Patient was seen, examined, and chart reviewed. Agree with exam and treatment plan of the Vascular PA. Thank you very much for letting us participate in the care of this patient. Acute cor pulmonale presence: without acute cor pulmonale Chronicity: unspecified Pulmonary embolism type: saddle Qualified Code(s): I26.92 - Saddle embolus of pulmonary artery without acute cor pulmonale History of Present Illness Reason for Consultation: DVT, PE, need IVC filter Attending Physician: Angy Fontaine DO History of Present Illness 72 yo f with multiple medical problems, including ALL, CKD III, HTN, hyperlipidemia, DMII, admitted with MRSA and VRE bacteremia, seen in consultati on today for possible need for IVC filter after CTA chest demonstrates PE and small saddle embolus. Pt denies any hx of PE/DVT in past. Has been chronically SOB for a long time, but noted it to be worse before arrival at [facility]. Has been requiring oxygen during entire stay. Pt admits fatigue, malaise. Denies SAUL, fever, chills, chest pain, abd pain, N/V, rest pain, claudication, other complaints. Pt currently on heparin without signs of active bleeding. Venous doppler demonstrates small distal DVT in BLE. CTA chest demonstrates BL PE and small central saddle embolus. Allergies Allergy/AdvReac Type Severity Reaction Status Date / Time No Known Allergies Allergy Verified 06/12/18 17:53 Home Medications Home Medications Medication Instructions Recorded Confirmed Type atorvastatin 40 mg PO HS 04/05/18 06/12/18 History fluticasone-salmeterol [Advair 1 inh INHALATION BID 04/05/18 06/12/18 History Diskus] omeprazole 20 mg PO BID 04/05/18 06/12/18 History tramadol 50 mg PO Q6H PRN 04/05/18 06/12/18 History acyclovir 400 mg PO BID 06/09/18 06/12/18 History allopurinol 300 mg PO DAILY 06/09/18 06/12/18 History bumetanide 1 mg PO BID 06/09/18 06/12/18 History fluconazole 400 mg PO DAILY 06/09/18 06/12/18 History insulin aspart U-100 6 units SUBCUT TIDM 06/09/18 06/12/18 History insulin detemir U-100 [Levemir 14 units SUBCUT QPM 06/09/18 06/12/18 History FlexTouch U-100 Insuln] insulin detemir U-100 [Levemir 18 units SUBCUT QAM 06/09/18 06/12/18 History U-100 Insulin] metoprolol succinate 25 mg PO DAILY 06/09/18 06/12/18 History nitroglycerin [Nitrostat] 0.4 mg SUBLINGUAL DIRECTED PRN 06/09/18 06/12/18 History albuterol sulfate 2 puff INHALATION Q6H PRN 06/12/18 06/12/18 History dapsone 100 mg PO DAILY 06/12/18 06/12/18 History dasatinib [Sprycel] 70 mg PO BID 06/12/18 06/12/18 History dextrose [Glutose 15] 1 ea PO DIRECTED PRN 06/12/18 06/12/18 History escitalopram oxalate 5 mg PO DAILY 06/12/18 06/12/18 History [id number] carb-vit K 1 tab PO DAILY 06/12/18 06/12/18 History [Women's Multivitamin] prednisone See Rx Instructions .ROUTE .COMPLEX 06/12/18 06/12/18 History Patient History Medical History Lumbar disc disease (Chronic) Tobacco use (Resolved) Depression (Chronic) Splenomegaly (Chronic) ALL (acute lymphoblastic leukemia) (Chronic) Osteoarthritis (Chronic) GERD (gastroesophageal reflux disease) (Chronic) Nocturnal hypoxia (Chronic) Moderate COPD (chronic obstructive pulmonary disease) (Chronic) CKD (chronic kidney disease), stage III (Chronic) Dyslipidemia (Chronic) Hypertension (Chronic) DM type 2 (diabetes mellitus, type 2) (Chronic) Diabetes mellitus, type II (Inactive) EKG abnormalities (Inactive) GERD (gastroesophageal reflux disease) (Inactive) Ovarian cyst (Inactive) Diabetes mellitus Surgical History H/O tubal ligation (Chronic) History of cholecystectomy (Chronic) Social History Communication Ability: Effective Beliefs That Will Affect Care: None Current Living Situation: Alone Other Information That Helps Us Care for You: No Feels Safe at Home: Yes Smoking Status: Former smoker Hx Alcohol Use: No Hx Substance Use: No Review of Systems Constitutional: + fatigue and + malaise; no fever, no chills, no sweats and no weight loss Eyes: no blind spots and no problem reported Ear, Nose, Mouth, Throat: no hearing loss and no sore throat Respiratory: + dyspnea on exertion; no cough, no dyspnea and no hemoptysis Cardiovascular: no chest pain, no palpitations, no syncope, no claudication and no problem reported Gastrointestinal: no abdominal pain, no early satiety, no nausea, no vomiting, no cramping, no change in bowel habits, no diarrhea/loose stools and no blood in stools Musculoskeletal: no back pain, no joint pain, no swelling and no muscle weakness Integumentary: no rash, no skin ulcer and no erythema Neurologic: no localized weakness, no generalized weakness, no paralysis, no loss of sensation, no tingling, no numbness, no paresthesia, no seizure-like activity, no syncope, no headache(s) and no confusion Psychiatric: as per Subjective / HPI Hematologic / Lymphatic: no easy bleeding, no easy bruising, no coagulopathy, no night sweats and no unexplained weight loss Physical Exam Vital Signs (Past 24 Hours): Last Vital Signs Temp 37.3 C 06/25/18 18:00 Pulse 96 H 06/25/18 18:59 Resp 18 06/25/18 18:59 BP 139/48 L 06/25/18 18:00 Pulse Ox 93 06/25/18 18:59 Constitutional: WD/WN, vitals as above well developed, well nourished, + ill appearing, + obese, cooperative and + lethargic; not in distress Eyes: PERRL, conjunctivae normal, anicteric sclerae EOM intact bilaterally ENMT: external ear and nose normal, oropharynx normal Nose: no nasal discharge Neck: trachea midline, no thyromegaly no tracheal deviation, no neck crepitus and neck nontender Respiratory: able to speak in complete sentences; does not use accessory muscles and no cough Auscultation: lungs clear to auscultation bilaterally and + diminished lung sounds; no rhonchi and no wheezes Cardiovascular: RRR, no murmur, no edema Heart Sounds: no gallop and no murmur Vessels: femoral pulses present, posterior tibial pulses present, dorsalis pedis pulses present, brachial pulses present and radial pulses present; no carotid bruit and no femoral bruit Extremities: normal capillary refill; no edema Chest (Breasts): Chest: normal inspection of chest Gastrointestinal (Abdomen): normal bowel sounds, soft, nontender, no hepatosplenomegaly Inspection/Auscultation: abdomen normal to inspection and normal bowel sounds; abdomen not distended Percussion/Palpation: abdomen soft; abdomen nontender, no guarding, abdomen not rigid and no abdominal mass Musculoskeletal: no cyanosis or clubbing, extremities motor strength 5/5 Head/Neck/Chest: normocephalic, head atraumatic and neck supple Extremities: extremities normal to inspection and strength 5/5 throughout; full ROM of extremities, no chronic stasis changes and no clubbing Skin: no rashes, warm and dry normal turgor and + excoriations; no rashes, no wound and no pallor Trauma: no hematoma and no puncture Neurologic: moves all extremities and awake; no focal motor deficits and not confused Speech / Cognition: no expressive aphasia and no receptive aphasia Motor/Sensory: no tremor and no sensory deficit Cranial Nerves: EOM intact bilaterally, normal facial strength and tongue midline Psychiatric: Orientation: alert, oriented x 3, oriented to person, oriented to place, oriented to time and cooperative Apperance: appropriately dressed and appeared stated age Affect: euthymic affect Thought Process: linear/logical thought process Cognition: recent memory grossly intact, remote memory grossly intact, attention grossly intact and language grossly intact Estimated Intelligence: average estimated intelligence Lymphatic: no lymphedema
--- NOTE | 2018-06-26 12:02 | Palliative Care Consultation ---
Date of Consultation June 26, 2018 Assessment & Plan (1) Goals of care, counseling/discussion: -72 year old female with PMH ALL, COPD, GERD, osteoporosis, CKD stage III, dyslipidemia, htn, DM and others, presented to the hospital two weeks ago with bilateral LE cellulitis and weakness. Per record, about a month ago patient was transferred from [facility] to [facility] for suspected onset of acute leukemia. 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 Treatment was started with prednisone and oral Sprycel. Patient was to also start Rituxan however due to transportation issues, those treatments have not been started yet. Apparently while at [facility], patient had acute on chronic kidney failure and was treated with Lasix gtt, eventually transitiioned to PO Bumex. At home, patient was evaluted by home health RN who recommended she come to hospital as she was so weak she could not get out of bed. Abx were started here for BLE cellulitis. Patient has had a complicated hospital stay due to profound weakness, immobility, MRSA and VRE bacteremia. yesterday, patient developed acute respiratory failure and was found to have BL PEs and saddle PE. Patient was transferred to ICU, started on heparin gtt. She is transfusion- dependent with chronic anemia. Anticoagulation is complicated, but per attending oral AC may be possible in the future. Also found on venous doppler to have BL occlusive DVT. Was evaluated by vascular surgery for possible IVC filter placement, but currently no indication. Echocardiogram obtained to assess for heart strain-- report does not show any significant changes or strain, EF >70%. Patient also found to have mucous plugging of bronchus. Patient declined having intubation or bronchoscopy. Also made herself DNR during conversation with printing plate clerk physician. Palliative care is consulted to establish goals of care. -Met with patient in room [address]illa today. Patient is with very flat affect, but oriented x4. -Patient was refusing mucomyst treatments and refusing to get OOB with PT. We discussed her goals. Patient states that she does not want to go through invasive/aggressive procedures such as bronchoscopy, intubation, CPR, etc., however, she wants to continue maximal treatment otherwise. States, "I don't want to ." She now agrees to do the breathing treatments and try to get OOB/mobilize. Patient fully understands that without invasive measures, her condition could worsen quickly or she could even pass away. -During a separate conversation between myself and the patient, she stated that she is afraid to but also doesn't want to continue "to go through this." She has one son, one daughter (Marissa), and two grandchildren who live in [place], [place]. She did not want me to contact her daughter at this time. She states her children are aware somewhat of what's going on with her. In the case patient is unable to make her own decisions, she would want her daughter Marissa to do so for her. She declined doing living will/POA/POLST form at this time. -Uncertain of long-term planning/goals at this time. She is accepted to [facility] upon discharge. Plan was for rehab and IV abx. At home, patient was so weak and debilitated she was unable to get to the bathroom or even get OOB. I will continue to follow during hospitalization. -PPS 40% currently. (2) Mucoid impaction of bronchi: -Patient declines bronchoscopy or intubation. -Managed by printing plate clerk and hospitalist. (3) Pulmonary embolism: -In the setting of acute leukemia, immobility. -Now with BLE DVT. -On heparin gtt. -Managed by printing plate clerk and hospitalist. Acute cor pulmonale presence: without acute cor pulmonale Chronicity: unspecified Pulmonary embolism type: saddle Qualified Code(s): I26.92 - Saddle embolus of pulmonary artery without acute cor pulmonale (4) ALL (acute lymphoblastic leukemia): -Currently undergoing treatment. -Now likely transfusion-dependent. -Current performance status likely to deter any further treatment at this time. -Needs to stabilize and improve her overall condition. -[facility] heme/onc consulted. (5) Bacteremia: -MRSA and VRE. -ID following. -Follow up BC negative for growth. -Remains on IV Daptomycin. Supervising Physician Co-Signing Physician Notes Patient seen and examined this afternoon,after transfer to the second floor from the ICU-patient's neighbor at bedside. Patient's neighbor has updated patient's daughter in [place], patient's daughter is to travel here-plan to arrive sometime on Tuesday PE: Patient awake, alert, no acute distress-on O2 at 10 L oxygen mask HEENT: EOMI, normal hearing CV: Regular rate, no edema Respiratory: Unlabored, diminished breath sounds bilaterally Abdomen: Soft, nontender Neuro: Alert and oriented Agree with above note, assessment and plan as per DIAMOND Oswald. Will continue to follow to assist with medical decision making History of Present Illness Reason for Consultation: Goals of care Requesting Physician: Dr. Mantilla Attending Physician: Angy Fontaine DO History of Present Illness This 72 year old female with PMH ALL, COPD, GERD, osteoporosis, CKD stage III, dyslipidemia, htn, DM and others, presented to the hospital two weeks ago with bilateral LE cellulitis and weakness. Per record, about a month ago patient was transferred from [facility] to [facility] for suspected onset of acute leukemia. 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 Treatment was started with prednisone and oral Sprycel. Patient was to also start Rituxan however due to transportation issues, those treatments have not been started yet. Apparently while at [facility], patient had acute on chronic kidney failure and was treated with Lasix gtt, eventually transitiioned to PO Bumex. At home, patient was evaluted by home health RN who recommended she come to hospital as she was so weak she could not get out of bed. Abx were started here for BLE cellulitis. Patient has had a complicated hospital stay due to profound weakness, immobility, MRSA and VRE bacteremia. yesterday, patient developed acute respiratory failure and was found to have BL PEs and saddle PE. Patient was transferred to ICU, started on heparin gtt. She is transfusion- dependent with chronic anemia. Anticoagulation is complicated, but per attending oral AC may be possible in the future. Also found on venous doppler to have BL occlusive DVT. Was evaluated by vascular surgery for possible IVC filter placement, but currently no indication. Echocardiogram obtained to assess for heart strain-- report does not show any significant changes or strain, EF >70%. Patient also found to have mucous plugging of bronchus. Patient declined having intubation or bronchoscopy. Also made herself DNR during conversation with printing plate clerk physician. Palliative care is consulted to establish goals of care. Thank you kindly for this consult. I will follow as needed. Allergies Allergy/AdvReac Type Severity Reaction Status Date / Time No Known Allergies Allergy Verified 06/12/18 17:53 Home Medications Home Medications Medication Instructions Recorded Confirmed Type atorvastatin 40 mg PO HS 04/05/18 06/12/18 History fluticasone-salmeterol [Advair 1 inh INHALATION BID 04/05/18 06/12/18 History Diskus] omeprazole 20 mg PO BID 04/05/18 06/12/18 History tramadol 50 mg PO Q6H PRN 04/05/18 06/12/18 History acyclovir 400 mg PO BID 06/09/18 06/12/18 History allopurinol 300 mg PO DAILY 06/09/18 06/12/18 History bumetanide 1 mg PO BID 06/09/18 06/12/18 History fluconazole 400 mg PO DAILY 06/09/18 06/12/18 History insulin aspart U-100 6 units SUBCUT TIDM 06/09/18 06/12/18 History insulin detemir U-100 [Levemir 14 units SUBCUT QPM 06/09/18 06/12/18 History FlexTouch U-100 Insuln] insulin detemir U-100 [Levemir 18 units SUBCUT QAM 06/09/18 06/12/18 History U-100 Insulin] metoprolol succinate 25 mg PO DAILY 06/09/18 06/12/18 History nitroglycerin [Nitrostat] 0.4 mg SUBLINGUAL DIRECTED PRN 06/09/18 06/12/18 History albuterol sulfate 2 puff INHALATION Q6H PRN 06/12/18 06/12/18 History dapsone 100 mg PO DAILY 06/12/18 06/12/18 History dasatinib [Sprycel] 70 mg PO BID 06/12/18 06/12/18 History dextrose [Glutose 15] 1 ea PO DIRECTED PRN 06/12/18 06/12/18 History escitalopram oxalate 5 mg PO DAILY 06/12/18 06/12/18 History kw-[id number] carb-vit K 1 tab PO DAILY 06/12/18 06/12/18 History [Women's Multivitamin] prednisone See Rx Instructions .ROUTE .COMPLEX 06/12/18 06/12/18 History Patient History Medical History Lumbar disc disease (Chronic) Tobacco use (Resolved) Depression (Chronic) Splenomegaly (Chronic) ALL (acute lymphoblastic leukemia) (Chronic) Osteoarthritis (Chronic) GERD (gastroesophageal reflux disease) (Chronic) Nocturnal hypoxia (Chronic) Moderate COPD (chronic obstructive pulmonary disease) (Chronic) CKD (chronic kidney disease), stage III (Chronic) Dyslipidemia (Chronic) Hypertension (Chronic) DM type 2 (diabetes mellitus, type 2) (Chronic) Diabetes mellitus, type II (Inactive) EKG abnormalities (Inactive) GERD (gastroesophageal reflux disease) (Inactive) Ovarian cyst (Inactive) Diabetes mellitus Surgical History H/O tubal ligation (Chronic) History of cholecystectomy (Chronic) Social History Communication Ability: Effective Beliefs That Will Affect Care: None Current Living Situation: Alone Other Information That Helps Us Care for You: No Feels Safe at Home: Yes Smoking Status: Former smoker Hx Alcohol Use: No Hx Substance Use: No Review of Systems Constitutional: + fatigue and + weakness Ear, Nose, Mouth, Throat: no dysphagia Respiratory: + cough and + dyspnea on exertion; no sputum production Cardiovascular: no chest pain and no edema Gastrointestinal: no abdominal pain, no nausea and no vomiting Neurologic: no confusion Psychiatric: + depression and + anxiety Physical Exam Vital Signs (Past 24 Hours): Last Vital Signs Temp 37.3 C 06/25/18 18:00 Pulse 86 06/26/18 11:00 Resp 18 06/25/18 18:59 BP 126/41 L 06/26/18 11:00 Pulse Ox 91 06/26/18 11:00 Constitutional: + ill appearing and + overweight Eyes: PERRL ENMT: external ear and nose normal, oropharynx normal Ears: no hearing impairment Neck: normal visual inspection and trachea midline Respiratory: normal respiratory effort, lungs clear to auscultation Auscultation: + diminished lung sounds Cardiovascular: RRR, no murmur, no edema Gastrointestinal (Abdomen): Inspection/Auscultation: abdomen normal to inspection and normal bowel sounds; abdomen not distended Percussion/Palpation: abdomen soft; abdomen nontender Skin: + pallor Neurologic: awake; not confused Psychiatric: Orientation: alert and oriented x 3 Affect: + depressed affect and + flat affect Insight: good insight Time Spent Midlevel 70 minutes with >50% of time spent at bedside with patient discussing condition and GOC.
--- NOTE | 2018-06-26 15:36 | Infectious Disease Progress Nt ---
Date of Service June 26, 2018 Assessment & Plan (1) MRSA (methicillin resistant Staphylococcus aureus) septicemia: 72-year-old female with MRSA sepsis likely from skin source, with one set positive for enterococcus as well. Patient to continue daptomycin as outlined by Dr. Woodward. Will follow. (2) Cellulitis, leg: Subjective Patient seen in follow-up for MRSA bacteremia. Developed shortness of breath and found to have pulmonary emboli. Seen by vascular surgery, no plans for intervention for IVC filter. Now on heparin. Remains afebrile, white count normal. Continues on daptomycin, appears to be tolerating without apparent diff iculty. Review of Systems All systems were reviewed and are negative except as per HPI Physical Exam Vital Signs (Past 24 Hours): Last Vital Signs Temp 37.0 C 06/26/18 14:55 Pulse 92 H 06/26/18 15:09 Resp 16 06/26/18 15:09 BP 121/64 06/26/18 14:55 Pulse Ox 90 06/26/18 15:09 Constitutional: WD/WN, vitals as above + ill appearing and comfortable; no acute distress Eyes: PERRL, conjunctivae normal, anicteric sclerae ENMT: external ear and nose normal, oropharynx normal Neck: trachea midline, no thyromegaly neck nontender Respiratory: normal respiratory effort, lungs clear to auscultation normal percussion; no respiratory distress Cardiovascular: Rate/Rhythm: regular rate and regular rhythm Heart Sounds: normal S1 and normal S2; no gallop, no murmur and no cardiac rub Gastrointestinal (Abdomen): normal bowel sounds, soft, nontender, no hepatosplenomegaly Musculoskeletal: no cyanosis or clubbing, extremities motor strength 5/5 No spinal tenderness, no joint swelling or erythema Skin: no rashes, warm and dry no lesions Fading erythema lower extremity Neurologic: moves all extremities and awake; no focal motor deficits Motor/Sensory: no sensory deficit Psychiatric: A+Ox3, euthymic affect Lymphatic: no cervical or axillary lymphadenopathy no inguinal lymphadenopathy Results & Data Laboratory Results Laboratory Results - last 48 hr 06/24/18 06/24/18 06/24/18 10:14 16:45 17:29 WBC RBC Hgb Hct MCV MCH MCHC RDW Std Deviation RDW Coeff of Yariel Plt Count MPV Immature Gran % (Auto) Neut % (Auto) Lymph % (Auto) Davison % (Auto) Eos % (Auto) Baso % (Auto) Immature Gran # (Auto) Neut # (Auto) Lymph # (Auto) Davison # (Auto) Eos # (Auto) Baso # (Auto) Absolute Nucleated RBC Nucleated RBC % (auto) Polychromasia Anisocytosis Spherocytes PT INR APTT PTT Ratio ABG pH ABG pCO2 ABG pO2 ABG HCO3 ABG O2 Saturation ABG Base Excess Kaleb Test Barometric Pressure Oxygen Given Sodium Potassium Chloride Carbon Dioxide Anion Gap BUN Creatinine Est Cr Clr Drug Dosing Est GFR ( Amer) Est GFR (Non-Af Amer) BUN/Creatinine Ratio Glucose POC Glucose 116 H Lactate Calcium Phosphorus Magnesium Total Bilirubin Direct Bilirubin AST ALT Alkaline Phosphatase Troponin I NT-Pro-B Natriuret Pep Total Protein Albumin Prealbumin Beta-Hydroxybutyric Acd Nasal Screen MRSA (PCR) Crossmatch See Detail Transfusion React Date Cancelled Transfusion React Time Cancelled Tx React Symptoms Cancelled Reaction Clerical Check Cancelled Lab Clerical Err Check Cancelled React Component Return Cancelled Volume Returned Cancelled Pre-Trans Blood Type Cancelled Pre-Trans Vis Hemolysis Cancelled Pre-Trans VEGA Cancelled Pre-Trans VEGA IgG Cancelled Pre-Trans VEGA Poly Cancelled Pre-Trans VEGA C3b, C3d Cancelled Post-Trans Blood Type Cancelled Post-Tx Visible Hemolys Cancelled Post-Trans VEGA Cancelled Post-Trans VEGA IgG Cancelled Post-Trans VEGA Poly Cancelled Post-Trans VEGA C3b, C3d Cancelled Post-Trans Ur Hemoglobin Cancelled Reaction Path Interpret Cancelled Transfusion Serv Com Cancelled 06/24/18 06/24/18 06/24/18 17:29 21:01 22:52 WBC 7.70 RBC 3.23 L Hgb 9.7 L Hct 30.8 L MCV 95.4 MCH 30.0 MCHC 31.5 L RDW Std Deviation 61.4 H RDW Coeff of Yariel 21.3 H Plt Count 142 MPV 9.9 Immature Gran % (Auto) 0.5 Neut % (Auto) 90.5 Lymph % (Auto) 7.0 Davison % (Auto) 1.6 Eos % (Auto) 0.0 Baso % (Auto) 0.4 Immature Gran # (Auto) 0.04 H Neut # (Auto) 6.97 H Lymph # (Auto) 0.54 L Davison # (Auto) 0.12 Eos # (Auto) 0.00 Baso # (Auto) 0.03 Absolute Nucleated RBC 0.02 H Nucleated RBC % (auto) 0.3 Polychromasia 1+ Anisocytosis Present Spherocytes Occasional PT INR APTT PTT Ratio ABG pH ABG pCO2 ABG pO2 ABG HCO3 ABG O2 Saturation ABG Base Excess Kaleb Test Barometric Pressure Oxygen Given Sodium Potassium Chloride Carbon Dioxide Anion Gap BUN Creatinine Est Cr Clr Drug Dosing Est GFR ( Amer) Est GFR (Non-Af Amer) BUN/Creatinine Ratio Glucose POC Glucose 152 H Lactate Calcium Phosphorus Magnesium Total Bilirubin Direct Bilirubin AST ALT Alkaline Phosphatase Troponin I NT-Pro-B Natriuret Pep Total Protein Albumin Prealbumin Beta-Hydroxybutyric Acd Nasal Screen MRSA (PCR) Crossmatch Transfusion React Date 06/24/18 Transfusion React Time 1640 Tx React Symptoms Hypoxia, Chest pain Reaction Clerical Check None Found Lab Clerical Err Check None Found React Component Return PCLRIRR Volume Returned 190 Pre-Trans Blood Type A POSITIVE Pre-Trans Vis Hemolysis No Pre-Trans VEGA Negative Pre-Trans VEGA IgG Neg Pre-Trans VEGA Poly Neg Pre-Trans VEGA C3b, C3d Neg Post-Trans Blood Type A POSITIVE Post-Tx Visible Hemolys No Post-Trans VEGA Negative Post-Trans VEGA IgG Neg Post-Trans VEGA Poly Neg Post-Trans VEGA C3b, C3d Neg Post-Trans Ur Hemoglobin No urine provided Reaction Path Interpret Transfusion Serv Com 06/24/18 06/24/18 06/24/18 22:52 22:52 22:52 WBC RBC Hgb Hct MCV MCH MCHC RDW Std Deviation RDW Coeff of Yariel Plt Count MPV Immature Gran % (Auto) Neut % (Auto) Lymph % (Auto) Davison % (Auto) Eos % (Auto) Baso % (Auto) Immature Gran # (Auto) Neut # (Auto) Lymph # (Auto) Davison # (Auto) Eos # (Auto) Baso # (Auto) Absolute Nucleated RBC Nucleated RBC % (auto) Polychromasia Anisocytosis Spherocytes PT INR APTT 27.5 PTT Ratio 1.0 ABG pH 7.45 ABG pCO2 45 ABG pO2 74 L ABG HCO3 30 H ABG O2 Saturation 93.1 ABG Base Excess 5.6 H Kaleb Test Pos Barometric Pressure 734.4 Oxygen Given 13 L Sodium 136 Potassium 5.0 D Chloride 98 Carbon Dioxide 33 H Anion Gap 5.0 BUN 31 H Creatinine 1.53 H Est Cr Clr Drug Dosing 39.2 Est GFR ( Amer) 39.3 Est GFR (Non-Af Amer) 33.9 BUN/Creatinine Ratio 20.0 Glucose 250 H POC Glucose Lactate Calcium 8.0 L Phosphorus Magnesium 1.9 Total Bilirubin Direct Bilirubin AST ALT Alkaline Phosphatase Troponin I 0.025 NT-Pro-B Natriuret Pep Total Protein Albumin Prealbumin Beta-Hydroxybutyric Acd Nasal Screen MRSA (PCR) Crossmatch Transfusion React Date Transfusion React Time Tx React Symptoms Reaction Clerical Check Lab Clerical Err Check React Component Return Volume Returned Pre-Trans Blood Type Pre-Trans Vis Hemolysis Pre-Trans VEGA Pre-Trans VEGA IgG Pre-Trans VEGA Poly Pre-Trans VEGA C3b, C3d Post-Trans Blood Type Post-Tx Visible Hemolys Post-Trans VEGA Post-Trans VEGA IgG Post-Trans VEGA Poly Post-Trans VEGA C3b, C3d Post-Trans Ur Hemoglobin Reaction Path Interpret Transfusion Serv Com 06/25/18 06/25/18 06/25/18 04:47 04:47 04:47 WBC 6.89 RBC 3.13 L Hgb 9.4 L Hct 29.8 L MCV 95.2 MCH 30.0 MCHC 31.5 L RDW Std Deviation 63.9 H RDW Coeff of Yariel 21.6 H Plt Count 154 MPV 10.2 Immature Gran % (Auto) Neut % (Auto) Lymph % (Auto) Davison % (Auto) Eos % (Auto) Baso % (Auto) Immature Gran # (Auto) Neut # (Auto) Lymph # (Auto) Davison # (Auto) Eos # (Auto) Baso # (Auto) Absolute Nucleated RBC 0.02 H Nucleated RBC % (auto) 0.3 Polychromasia Anisocytosis Spherocytes PT INR APTT PTT Ratio ABG pH ABG pCO2 ABG pO2 ABG HCO3 ABG O2 Saturation ABG Base Excess Kaleb Test Barometric Pressure Oxygen Given Sodium 136 Potassium 4.4 Chloride 97 L Carbon Dioxide 31 Anion Gap 8.0 BUN 34 H Creatinine 1.58 H Est Cr Clr Drug Dosing 38.0 Est GFR ( Amer) 37.8 Est GFR (Non-Af Amer) 32.6 BUN/Creatinine Ratio 21.5 H Glucose 346 H POC Glucose Lactate 1.1 Calcium 7.9 L Phosphorus Magnesium 2.5 H Total Bilirubin Direct Bilirubin AST ALT Alkaline Phosphatase Troponin I NT-Pro-B Natriuret Pep Total Protein Albumin Prealbumin Beta-Hydroxybutyric Acd 11.06 H Nasal Screen MRSA (PCR) Crossmatch Transfusion React Date Transfusion React Time Tx React Symptoms Reaction Clerical Check Lab Clerical Err Check React Component Return Volume Returned Pre-Trans Blood Type Pre-Trans Vis Hemolysis Pre-Trans VEGA Pre-Trans VEGA IgG Pre-Trans VEGA Poly Pre-Trans VEGA C3b, C3d Post-Trans Blood Type Post-Tx Visible Hemolys Post-Trans VEGA Post-Trans VEGA IgG Post-Trans VEGA Poly Post-Trans VEGA C3b, C3d Post-Trans Ur Hemoglobin Reaction Path Interpret Transfusion Serv Com 06/25/18 06/25/18 06/25/18 06:00 06:01 06:15 WBC RBC Hgb Hct MCV MCH MCHC RDW Std Deviation RDW Coeff of Yariel Plt Count MPV Immature Gran % (Auto) Neut % (Auto) Lymph % (Auto) Davison % (Auto) Eos % (Auto) Baso % (Auto) Immature Gran # (Auto) Neut # (Auto) Lymph # (Auto) Davison # (Auto) Eos # (Auto) Baso # (Auto) Absolute Nucleated RBC Nucleated RBC % (auto) Polychromasia Anisocytosis Spherocytes PT INR APTT PTT Ratio ABG pH ABG pCO2 ABG pO2 ABG HCO3 ABG O2 Saturation ABG Base Excess Kaleb Test Barometric Pressure Oxygen Given Sodium Potassium Chloride Carbon Dioxide Anion Gap BUN Creatinine Est Cr Clr Drug Dosing Est GFR ( Amer) Est GFR (Non-Af Amer) BUN/Creatinine Ratio Glucose POC Glucose 374 H* 377 H* Lactate Calcium Phosphorus Magnesium Total Bilirubin Direct Bilirubin AST ALT Alkaline Phosphatase Troponin I NT-Pro-B Natriuret Pep Total Protein Albumin Prealbumin Beta-Hydroxybutyric Acd Nasal Screen MRSA (PCR) Positive A Crossmatch Transfusion React Date Transfusion React Time Tx React Symptoms Reaction Clerical Check Lab Clerical Err Check React Component Return Volume Returned Pre-Trans Blood Type Pre-Trans Vis Hemolysis Pre-Trans VEGA Pre-Trans VEGA IgG Pre-Trans VEGA Poly Pre-Trans VEGA C3b, C3d Post-Trans Blood Type Post-Tx Visible Hemolys Post-Trans VEGA Post-Trans VEGA IgG Post-Trans VEGA Poly Post-Trans VEGA C3b, C3d Post-Trans Ur Hemoglobin Reaction Path Interpret Transfusion Serv Com 06/25/18 06/25/18 06/25/18 08:07 09:55 10:20 WBC RBC Hgb Hct MCV MCH MCHC RDW Std Deviation RDW Coeff of Yariel Plt Count MPV Immature Gran % (Auto) Neut % (Auto) Lymph % (Auto) Davison % (Auto) Eos % (Auto) Baso % (Auto) Immature Gran # (Auto) Neut # (Auto) Lymph # (Auto) Davison # (Auto) Eos # (Auto) Baso # (Auto) Absolute Nucleated RBC Nucleated RBC % (auto) Polychromasia Anisocytosis Spherocytes PT INR APTT 133.5 H* 101.0 H* PTT Ratio 4.9 3.7 ABG pH ABG pCO2 ABG pO2 ABG HCO3 ABG O2 Saturation ABG Base Excess Kaelb Test Barometric Pressure Oxygen Given Sodium Potassium Chloride Carbon Dioxide Anion Gap BUN Creatinine Est Cr Clr Drug Dosing Est GFR ( Amer) Est GFR (Non-Af Amer) BUN/Creatinine Ratio Glucose POC Glucose 309 H Lactate Calcium Phosphorus Magnesium Total Bilirubin Direct Bilirubin AST ALT Alkaline Phosphatase Troponin I NT-Pro-B Natriuret Pep Total Protein Albumin Prealbumin Beta-Hydroxybutyric Acd Nasal Screen MRSA (PCR) Crossmatch Transfusion React Date Transfusion React Time Tx React Symptoms Reaction Clerical Check Lab Clerical Err Check React Component Return Volume Returned Pre-Trans Blood Type Pre-Trans Vis Hemolysis Pre-Trans VEGA Pre-Trans VEGA IgG Pre-Trans VEGA Poly Pre-Trans VEGA C3b, C3d Post-Trans Blood Type Post-Tx Visible Hemolys Post-Trans VEGA Post-Trans EVGA IgG Post-Trans VEGA Poly Post-Trans VEGA C3b, C3d Post-Trans Ur Hemoglobin Reaction Path Interpret Transfusion Serv Com 06/25/18 06/25/18 06/25/18 10:20 11:51 14:00 WBC RBC Hgb Hct MCV MCH MCHC RDW Std Deviation RDW Coeff of Yariel Plt Count MPV Immature Gran % (Auto) Neut % (Auto) Lymph % (Auto) Davison % (Auto) Eos % (Auto) Baso % (Auto) Immature Gran # (Auto) Neut # (Auto) Lymph # (Auto) Davison # (Auto) Eos # (Auto) Baso # (Auto) Absolute Nucleated RBC Nucleated RBC % (auto) Polychromasia Anisocytosis Spherocytes PT INR APTT 49.0 H* PTT Ratio 1.8 ABG pH ABG pCO2 ABG pO2 ABG HCO3 ABG O2 Saturation ABG Base Excess Kaleb Test Barometric Pressure Oxygen Given Sodium Potassium Chloride Carbon Dioxide Anion Gap BUN Creatinine Est Cr Clr Drug Dosing Est GFR ( Amer) Est GFR (Non-Af Amer) BUN/Creatinine Ratio Glucose POC Glucose 254 H Lactate Calcium Phosphorus Magnesium Total Bilirubin 0.7 Direct Bilirubin 0.2 AST 26 ALT 98 H Alkaline Phosphatase 149 H Troponin I < 0.015 NT-Pro-B Natriuret Pep 287 Total Protein 6.1 L Albumin 2.3 L Prealbumin 17.9 L Beta-Hydroxybutyric Acd Nasal Screen MRSA (PCR) Crossmatch Transfusion React Date Transfusion React Time Tx React Symptoms Reaction Clerical Check Lab Clerical Err Check React Component Return Volume Returned Pre-Trans Blood Type Pre-Trans Vis Hemolysis Pre-Trans VEGA Pre-Trans VEGA IgG Pre-Trans VEGA Poly Pre-Trans VEGA C3b, C3d Post-Trans Blood Type Post-Tx Visible Hemolys Post-Trans VEGA Post-Trans VEGA IgG Post-Trans VEGA Poly Post-Trans VEGA C3b, C3d Post-Trans Ur Hemoglobin Reaction Path Interpret Transfusion Serv Com 06/25/18 06/25/18 06/25/18 14:58 16:05 16:53 WBC RBC Hgb Hct MCV MCH MCHC RDW Std Deviation RDW Coeff of Yariel Plt Count MPV Immature Gran % (Auto) Neut % (Auto) Lymph % (Auto) Davison % (Auto) Eos % (Auto) Baso % (Auto) Immature Gran # (Auto) Neut # (Auto) Lymph # (Auto) Davison # (Auto) Eos # (Auto) Baso # (Auto) Absolute Nucleated RBC Nucleated RBC % (auto) Polychromasia Anisocytosis Spherocytes PT INR APTT PTT Ratio ABG pH ABG pCO2 ABG pO2 ABG HCO3 ABG O2 Saturation ABG Base Excess Kaleb Test Barometric Pressure Oxygen Given Sodium Potassium Chloride Carbon Dioxide Anion Gap BUN Creatinine Est Cr Clr Drug Dosing Est GFR ( Amer) Est GFR (Non-Af Amer) BUN/Creatinine Ratio Glucose POC Glucose 270 H 199 H 181 H Lactate Calcium Phosphorus Magnesium Total Bilirubin Direct Bilirubin AST ALT Alkaline Phosphatase Troponin I NT-Pro-B Natriuret Pep Total Protein Albumin Prealbumin Beta-Hydroxybutyric Acd Nasal Screen MRSA (PCR) Crossmatch Transfusion React Date Transfusion React Time Tx React Symptoms Reaction Clerical Check Lab Clerical Err Check React Component Return Volume Returned Pre-Trans Blood Type Pre-Trans Vis Hemolysis Pre-Trans VEGA Pre-Trans VEGA IgG Pre-Trans VEGA Poly Pre-Trans VEGA C3b, C3d Post-Trans Blood Type Post-Tx Visible Hemolys Post-Trans VEGA Post-Trans VEGA IgG Post-Trans VEGA Poly Post-Trans VEGA C3b, C3d Post-Trans Ur Hemoglobin Reaction Path Interpret Transfusion Serv Com 06/25/18 06/25/18 06/25/18 18:07 19:12 19:13 WBC RBC Hgb Hct MCV MCH MCHC RDW Std Deviation RDW Coeff of Yariel Plt Count MPV Immature Gran % (Auto) Neut % (Auto) Lymph % (Auto) Davison % (Auto) Eos % (Auto) Baso % (Auto) Immature Gran # (Auto) Neut # (Auto) Lymph # (Auto) Davison # (Auto) Eos # (Auto) Baso # (Auto) Absolute Nucleated RBC Nucleated RBC % (auto) Polychromasia Anisocytosis Spherocytes PT INR APTT 66.3 H* PTT Ratio 2.4 ABG pH ABG pCO2 ABG pO2 ABG HCO3 ABG O2 Saturation ABG Base Excess Kaleb Test Barometric Pressure Oxygen Given Sodium Potassium Chloride Carbon Dioxide Anion Gap BUN Creatinine Est Cr Clr Drug Dosing Est GFR ( Amer) Est GFR (Non-Af Amer) BUN/Creatinine Ratio Glucose POC Glucose 235 H 244 H Lactate Calcium Phosphorus Magnesium Total Bilirubin Direct Bilirubin AST ALT Alkaline Phosphatase Troponin I NT-Pro-B Natriuret Pep Total Protein Albumin Prealbumin Beta-Hydroxybutyric Acd Nasal Screen MRSA (PCR) Crossmatch Transfusion React Date Transfusion React Time Tx React Symptoms Reaction Clerical Check Lab Clerical Err Check React Component Return Volume Returned Pre-Trans Blood Type Pre-Trans Vis Hemolysis Pre-Trans VEGA Pre-Trans VEGA IgG Pre-Trans VEGA Poly Pre-Trans VEGA C3b, C3d Post-Trans Blood Type Post-Tx Visible Hemolys Post-Trans VEGA Post-Trans VEGA IgG Post-Trans VEGA Poly Post-Trans VEGA C3b, C3d Post-Trans Ur Hemoglobin Reaction Path Interpret Transfusion Serv [employer] 06/25/18 06/25/18 06/25/18 20:06 21:03 22:01 WBC RBC Hgb Hct MCV MCH MCHC RDW Std Deviation RDW Coeff of Yariel Plt Count MPV Immature Gran % (Auto) Neut % (Auto) Lymph % (Auto) Davison % (Auto) Eos % (Auto) Baso % (Auto) Immature Gran # (Auto) Neut # (Auto) Lymph # (Auto) Davison # (Auto) Eos # (Auto) Baso # (Auto) Absolute Nucleated RBC Nucleated RBC % (auto) Polychromasia Anisocytosis Spherocytes PT INR APTT PTT Ratio ABG pH ABG pCO2 ABG pO2 ABG HCO3 ABG O2 Saturation ABG Base Excess Kaleb Test Barometric Pressure Oxygen Given Sodium Potassium Chloride Carbon Dioxide Anion Gap BUN Creatinine Est Cr Clr Drug Dosing Est GFR ( Amer) Est GFR (Non-Af Amer) BUN/Creatinine Ratio Glucose POC Glucose 219 H 167 H 140 H Lactate Calcium Phosphorus Magnesium Total Bilirubin Direct Bilirubin AST ALT Alkaline Phosphatase Troponin I NT-Pro-B Natriuret Pep Total Protein Albumin Prealbumin Beta-Hydroxybutyric Acd Nasal Screen MRSA (PCR) Crossmatch Transfusion React Date Transfusion React Time Tx React Symptoms Reaction Clerical Check Lab Clerical Err Check React Component Return Volume Returned Pre-Trans Blood Type Pre-Trans Vis Hemolysis Pre-Trans VEGA Pre-Trans VEGA IgG Pre-Trans VEGA Poly Pre-Trans VEGA C3b, C3d Post-Trans Blood Type Post-Tx Visible Hemolys Post-Trans VEGA Post-Trans VEGA IgG Post-Trans VEGA Poly Post-Trans VEGA C3b, C3d Post-Trans Ur Hemoglobin Reaction Path Interpret Transfusion Serv Com 06/25/18 06/25/18 06/26/18 23:05 23:24 00:20 WBC RBC Hgb Hct MCV MCH MCHC RDW Std Deviation RDW Coeff of Yariel Plt Count MPV Immature Gran % (Auto) Neut % (Auto) Lymph % (Auto) Davison % (Auto) Eos % (Auto) Baso % (Auto) Immature Gran # (Auto) Neut # (Auto) Lymph # (Auto) Davison # (Auto) Eos # (Auto) Baso # (Auto) Absolute Nucleated RBC Nucleated RBC % (auto) Polychromasia Anisocytosis Spherocytes PT INR APTT PTT Ratio ABG pH ABG pCO2 ABG pO2 ABG HCO3 ABG O2 Saturation ABG Base Excess Kaleb Test Barometric Pressure Oxygen Given Sodium Potassium Chloride Carbon Dioxide Anion Gap BUN Creatinine Est Cr Clr Drug Dosing Est GFR ( Amer) Est GFR (Non-Af Amer) BUN/Creatinine Ratio Glucose POC Glucose 109 H 153 H 110 H Lactate Calcium Phosphorus Magnesium Total Bilirubin Direct Bilirubin AST ALT Alkaline Phosphatase Troponin I NT-Pro-B Natriuret Pep Total Protein Albumin Prealbumin Beta-Hydroxybutyric Acd Nasal Screen MRSA (PCR) Crossmatch Transfusion React Date Transfusion React Time Tx React Symptoms Reaction Clerical Check Lab Clerical Err Check React Component Return Volume Returned Pre-Trans Blood Type Pre-Trans Vis Hemolysis Pre-Trans VEGA Pre-Trans VEGA IgG Pre-Trans VEGA Poly Pre-Trans VEGA C3b, C3d Post-Trans Blood Type Post-Tx Visible Hemolys Post-Trans VEGA Post-Trans VEGA IgG Post-Trans VEGA Poly Post-Trans VEGA C3b, C3d Post-Trans Ur Hemoglobin Reaction Path Interpret Transfusion Serv Com 06/26/18 06/26/18 06/26/18 00:41 00:57 01:15 WBC RBC Hgb Hct MCV MCH MCHC RDW Std Deviation RDW Coeff of Yariel Plt Count MPV Immature Gran % (Auto) Neut % (Auto) Lymph % (Auto) Davison % (Auto) Eos % (Auto) Baso % (Auto) Immature Gran # (Auto) Neut # (Auto) Lymph # (Auto) Davison # (Auto) Eos # (Auto) Baso # (Auto) Absolute Nucleated RBC Nucleated RBC % (auto) Polychromasia Anisocytosis Spherocytes PT INR APTT PTT Ratio ABG pH ABG pCO2 ABG pO2 ABG HCO3 ABG O2 Saturation ABG Base Excess Kaleb Test Barometric Pressure Oxygen Given Sodium Potassium Chloride Carbon Dioxide Anion Gap BUN Creatinine Est Cr Clr Drug Dosing Est GFR ( Amer) Est GFR (Non-Af Amer) BUN/Creatinine Ratio Glucose POC Glucose 118 H 122 H 132 H Lactate Calcium Phosphorus Magnesium Total Bilirubin Direct Bilirubin AST ALT Alkaline Phosphatase Troponin I NT-Pro-B Natriuret Pep Total Protein Albumin Prealbumin Beta-Hydroxybutyric Acd Nasal Screen MRSA (PCR) Crossmatch Transfusion React Date Transfusion React Time Tx React Symptoms Reaction Clerical Check Lab Clerical Err Check React Component Return Volume Returned Pre-Trans Blood Type Pre-Trans Vis Hemolysis Pre-Trans VEGA Pre-Trans VEGA IgG Pre-Trans VEGA Poly Pre-Trans VEGA C3b, C3d Post-Trans Blood Type Post-Tx Visible Hemolys Post-Trans VEGA Post-Trans VEGA IgG Post-Trans VEGA Poly Post-Trans VEGA C3b, C3d Post-Trans Ur Hemoglobin Reaction Path Interpret Transfusion Serv Com 06/26/18 06/26/18 06/26/18 01:23 01:35 03:02 WBC RBC Hgb Hct MCV MCH MCHC RDW Std Deviation RDW Coeff of Yariel Plt Count MPV Immature Gran % (Auto) Neut % (Auto) Lymph % (Auto) Davison % (Auto) Eos % (Auto) Baso % (Auto) Immature Gran # (Auto) Neut # (Auto) Lymph # (Auto) Davison # (Auto) Eos # (Auto) Baso # (Auto) Absolute Nucleated RBC Nucleated RBC % (auto) Polychromasia Anisocytosis Spherocytes PT INR APTT 89.5 H* PTT Ratio 3.3 ABG pH ABG pCO2 ABG pO2 ABG HCO3 ABG O2 Saturation ABG Base Excess Kaleb Test Barometric Pressure Oxygen Given Sodium Potassium Chloride Carbon Dioxide Anion Gap BUN Creatinine Est Cr Clr Drug Dosing Est GFR ( Amer) Est GFR (Non-Af Amer) BUN/Creatinine Ratio Glucose POC Glucose 133 H 156 H Lactate Calcium Phosphorus Magnesium Total Bilirubin Direct Bilirubin AST ALT Alkaline Phosphatase Troponin I NT-Pro-B Natriuret Pep Total Protein Albumin Prealbumin Beta-Hydroxybutyric Acd Nasal Screen MRSA (PCR) Crossmatch Transfusion React Date Transfusion React Time Tx React Symptoms Reaction Clerical Check Lab Clerical Err Check React Component Return Volume Returned Pre-Trans Blood Type Pre-Trans Vis Hemolysis Pre-Trans VEGA Pre-Trans VEGA IgG Pre-Trans VEGA Poly Pre-Trans VEGA C3b, C3d Post-Trans Blood Type Post-Tx Visible Hemolys Post-Trans VEAG Post-Trans VEGA IgG Post-Trans VEGA Poly Post-Trans VEGA C3b, C3d Post-Trans Ur Hemoglobin Reaction Path Interpret Transfusion Serv Com 06/26/18 06/26/18 06/26/18 05:09 05:09 05:10 WBC RBC Hgb Hct MCV MCH MCHC RDW Std Deviation RDW Coeff of Yariel Plt Count MPV Immature Gran % (Auto) Neut % (Auto) Lymph % (Auto) Davison % (Auto) Eos % (Auto) Baso % (Auto) Immature Gran # (Auto) Neut # (Auto) Lymph # (Auto) Davison # (Auto) Eos # (Auto) Baso # (Auto) Absolute Nucleated RBC Nucleated RBC % (auto) Polychromasia Anisocytosis Spherocytes PT 11.7 INR 1.2 H APTT PTT Ratio ABG pH ABG pCO2 ABG pO2 ABG HCO3 ABG O2 Saturation ABG Base Excess Kaleb Test Barometric Pressure Oxygen Given Sodium Potassium Chloride Carbon Dioxide Anion Gap BUN Creatinine Est Cr Clr Drug Dosing Est GFR ( Amer) Est GFR (Non-Af Amer) BUN/Creatinine Ratio Glucose POC Glucose 161 H Lactate Calcium Phosphorus 3.8 Magnesium Total Bilirubin Direct Bilirubin AST ALT Alkaline Phosphatase Troponin I NT-Pro-B Natriuret Pep Total Protein Albumin Prealbumin Beta-Hydroxybutyric Acd Nasal Screen MRSA (PCR) Crossmatch Transfusion React Date Transfusion React Time Tx React Symptoms Reaction Clerical Check Lab Clerical Err Check React Component Return Volume Returned Pre-Trans Blood Type Pre-Trans Vis Hemolysis Pre-Trans VEGA Pre-Trans VEGA IgG Pre-Trans VEGA Poly Pre-Trans VEGA C3b, C3d Post-Trans Blood Type Post-Tx Visible Hemolys Post-Trans VEGA Post-Trans VEGA IgG Post-Trans VEGA Poly Post-Trans VEGA C3b, C3d Post-Trans Ur Hemoglobin Reaction Path Interpret Transfusion Serv Com 06/26/18 06/26/18 06/26/18 06:18 08:37 12:23 WBC RBC Hgb Hct MCV MCH MCHC RDW Std Deviation RDW Coeff of Yariel Plt Count MPV Immature Gran % (Auto) Neut % (Auto) Lymph % (Auto) Davison % (Auto) Eos % (Auto) Baso % (Auto) Immature Gran # (Auto) Neut # (Auto) Lymph # (Auto) Davison # (Auto) Eos # (Auto) Baso # (Auto) Absolute Nucleated RBC Nucleated RBC % (auto) Polychromasia Anisocytosis Spherocytes PT INR APTT 74.9 H* PTT Ratio 2.8 ABG pH ABG pCO2 ABG pO2 ABG HCO3 ABG O2 Saturation ABG Base Excess Kaleb Test Barometric Pressure Oxygen Given Sodium Potassium Chloride Carbon Dioxide Anion Gap BUN Creatinine Est Cr Clr Drug Dosing Est GFR ( Amer) Est GFR (Non-Af Amer) BUN/Creatinine Ratio Glucose POC Glucose 166 H 152 H Lactate Calcium Phosphorus Magnesium Total Bilirubin Direct Bilirubin AST ALT Alkaline Phosphatase Troponin I NT-Pro-B Natriuret Pep Total Protein Albumin Prealbumin Beta-Hydroxybutyric Acd Nasal Screen MRSA (PCR) Crossmatch Transfusion React Date Transfusion React Time Tx React Symptoms Reaction Clerical Check Lab Clerical Err Check React Component Return Volume Returned Pre-Trans Blood Type Pre-Trans Vis Hemolysis Pre-Trans VEGA Pre-Trans VEGA IgG Pre-Trans VEGA Poly Pre-Trans VEGA C3b, C3d Post-Trans Blood Type Post-Tx Visible Hemolys Post-Trans VEGA Post-Trans VEGA IgG Post-Trans VEGA Poly Post-Trans VEGA C3b, C3d Post-Trans Ur Hemoglobin Reaction Path Interpret Transfusion Serv Com Diagnostic Findings Microbiology 06/14/18 10:38 Blood Blood Culture - Final No growth 06/14/18 10:16 Blood Blood Culture - Final No growth 06/12/18 18:15 Blood Blood Culture - Final Staph aureus MRSA 06/12/18 17:55 Blood Blood Culture - Final Staph aureus MRSA Enterococcus faecium VRE 06/13/18 00:30 Urine,Clean Catch Urine Culture - Final Three types of organisms present, all low counts probable skin valentin. No further identifications or sensitivities to follow. cc: ~ CT angio chest PE protocol CT DOSE: 555.99 mGy.cm HISTORY: Dyspnea hypoxemia TECHNIQUE: Multiaxial CT images of the chest were performed following the intravenous administration of contrast to evaluate the pulmonary arteries. Maximal intensity projection images were also obtained. A dose lowering sarah hnique was utilized adhering to the principles of ALARA. COMPARISON STUDY: None. FINDINGS: Findings consistent with extensive bilateral pulmonary emboli. There is a partial small caliber saddle embolus. There is considerable emboli involving the proximal right and left the right lower pulmonary arterial structures centrally. There is significant ulnar emboli involving the left upper as well as left lower lobe pulmonary arterial structures. Heart is moderately enlarged. There are bibasilar infiltrative changes with consolidative infiltrative changes in medial aspect left lung base. The thoracic aorta is normal in course and caliber. Pulmonary apices are considered generally clear. IMPRESSION: 1. Extensive bilateral pulmonary emboli. 2. Small caliber central saddle embolus. 3. No evidence for right heart strain. 4. Consolidative left and to lesser extent right basilar parenchymal infiltrative change. The above report was generated using voice recognition software. It may contain grammatical, syntax or spelling errors. Electronically signed by: Navid Serrano M.D. 06/24/2018 10:14 PM Dictated: 06/24/182209 Transcribed: 06/24/182209
[2018-06-26 16:43] LABS: Partial Thromboplastin Time 53.1 Seconds (21.0-31.0)
--- NOTE | 2018-06-26 16:52 | Hematology/Oncology Prog Note ---
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 - [place] Dr. Fraser and [facility] [place], - Presently she is on oral Dasatinib (Sprycel). She also has few other comorbid conditions and declining performed status. She presented with bilateral lower extremity cellulitis about a month back. Recently over the weekend she had increasing shortness of breath, further workup showed evidence of bilateral pulmonary embolism and bilateral lower extremity DVT. Imaging study done recently: - Doppler evaluation done on 06/13/2018 �> No evidence of DVT. -- Bilateral lower extremity doppler evaluation (06/25/2018) �> Bilateral DVT noted - CT scan of the chest with PE protocol (2018) �> Bilateral pulmonary embolism, small cider embolism noted. No evidence of heart strain noted. Bibasilar parenchymal changes noted. Blood workup done on 06/25/2018: - WBC 6800, H&H of 9.4/29.8, Platelet count of 154,000. . Earlier hemoglobin level dropped down to around 6.8 g/dL on 06/15/2018 and she did receive a blood trans support with a stable hemoglobin level for about 2 weeks between 9-10 g/dL. Her hemoglobin level dropped down to around 7.1 g/dL on 06/24/2018, she received blood transfusion support earlier she had thrombocytopenia platelet count around 20,000 as of 06/05/2018, now it is around 150,000. Last blood culture done on 06/14/2018 �> Negative. I saw her at bedside, she is receiving nasal cannula oxen treatment at 10 L per minute, she was in the ICU, now transferred to the 2nd floor, today seen by palliative care team, feeling weak and tired, she is receiving IV heparin, also seen by vascular surgeon, decided not to proceed with filter placement as there is no active bleeding from any sites. She does require intermittent blood transfusion, perhaps once every 2 weekly. I reviewed her blood workup done recently, now platelet count is in the normal range, she has no increasing bleeding or bruising from any sites, she says that she had a leg edema earlier which is gradually getting better, no leg discomfort, denies any abdominal pain. I would suggest we should continue IV heparin for few more days and see how she does, if she has no new bleeding complications, we could consider for changing to Lovenox perhaps once-a-day for long-term anticoagulant treatment. If she has bleeding complications, we should consider for IVC filter placement. She will require periodic blood transfusion support based on hemoglobin level and her symptoms. Will continue the current management of ALL with Dasatinib (Sprycel). Patient will follow-up Dr. Fraser as an outpatient. Jalil Nix MD Hem/Onc Physical Exam Vital Signs (Past 24 Hours): Last Vital Signs Temp 37.0 C 06/26/18 14:55 Pulse 92 H 06/26/18 15:09 Resp 16 06/26/18 15:09 BP 121/64 06/26/18 14:55 Pulse Ox 90 06/26/18 15:09 (1) Pulmonary embolism Pulmonary embolism type: saddle Chronicity: unspecified Acute cor pulmonale presence: without acute cor pulmonale Qualified Code(s): I26.92 - Saddle embolus of pulmonary artery without acute cor pulmonale
[2018-06-27 08:02] LABS: Basophils # (auto) 0.02 K/uL (0-0.2); Basophils % (auto) 0.2 %; Eosinophils # (auto) 0.04 K/uL (0-0.5); Eosinophils % (auto) 0.5 %; Hematocrit (blood only) 25.4 % (37-47); Hemoglobin 7.9 g/dL (12.0-16.0); Immature Granulocytes % (auto) 1.2 %; Lymphocytes # (auto) 0.59 K/uL (1.2-3.4); Lymphocytes % (auto) 7.1 %; Mean Corpuscular Hgb Conc 31.1 g/dL (32-36); Mean Corpuscular Volume 98.1 fL (80-100); Mean Platelet Volume 9.8 fL (7.4-10.4); Monocytes # (auto) 0.47 K/uL (0.11-0.59); Monocytes % (auto) 5.7 %; Neutrophils # (auto) 7.07 K/uL (1.4-6.5); Neutrophils % (auto) 85.3 %; Nucleated RBC # (auto) 0.03 K/uL (0-0); Nucleated RBC % (auto) 0.3 %; Platelet Count 149 K/uL (130-400); RDW Coefficient of Variation 21.2 % (11.5-14.5); RDW Standard Deviation 67.2 fL (36.4-46.3); Red Blood Count 2.59 M/uL (4.2-5.4); White Blood Count 8.29 K/uL (4.8-10.8)
[2018-06-27 08:30] LABS: Anisocytosis Present; Spherocytes Occasional
[2018-06-27 08:34] LABS: Partial Thromboplastin Time 53.6 Seconds (21.0-31.0)
[2018-06-27 08:35] LABS: Albumin Level 2.2 gm/dl (3.4-5.0); BUN Creatinine Ratio 26.9 (10-20); Calcium 7.7 mg/dl (8.5-10.1); Creatinine Clr Calc Pharmacy 42.2 ml/min; Est GFR (African American) 44.5; Est GFR (Non-African American) 38.4; Magnesium 2.2 mg/dl (1.8-2.4)
[2018-06-27 08:42] LABS: Bilirubin Direct 0.2 mg/dl (0-0.2); Bilirubin,Total 0.7 mg/dl (0.2-1); Total Protein 5.5 gm/dl (6.4-8.2)
--- NOTE | 2018-06-27 11:47 | Palliative Care Progress Note ---
Date of Service June 27, 2018 Assessment & Plan (1) Goals of care, counseling/discussion: -Patient continues to feel weak and fatigued today. Still declining to work with PT/OT and/or get OOB due to her weakness. -Patient is very vague and undecided about her goals of care. She states that franko gray does not want to keep living like this, but also is certainly not ready to transition to comfort care. I believe she needs some time to think things over and probably speak more wither her daughter this weekend (Daughter Marissa will be in town on Tuesday). -Uncertain of long-term planning/goals at this time. She is accepted to [facility] upon discharge. Plan was for rehab and IV abx. At home, patient was so weak and debilitated she was unable to get to the bathroom or even get OOB. However, she has not been able to participate in therapy, so I'm unsure if she will be accepted to SNF for rehab. Case management is following. -Remains on heparin gtt and dapto. -Hgb 7.9 today. Seems to be transfusion-dependent. Will need to have plan for when she is at SNF as far as lab work, further transfusions, etc. -Will continue to follow. -PPS 40% currently. (2) Mucoid impaction of bronchi: -Patient declines bronchoscopy or intubation. -Managed by hospitalist. (3) Pulmonary embolism: -In the setting of acute leukemia, immobility. -Now with BLE DVT. -On heparin gtt. -Managed by hospitalist. (4) ALL (acute lymphoblastic leukemia): -Currently undergoing treatment. -Now likely transfusion-dependent. -Current performance status likely to deter any further treatment at this time. -Needs to stabilize and improve her overall condition. -[facility] heme/onc consulted. (5) Bacteremia: -MRSA and VRE. -ID following. -Follow up BC negative for growth. -Remains on IV Daptomycin. Subjective Patient is now in PCU. Declines to get OOB or work with therapy due to weakness and fatigue. Constitutional: + fatigue and + weakness Ear, Nose, Mouth, Throat: no dysphagia Respiratory: + cough and + dyspnea on exertion; no sputum production Cardiovascular: no chest pain and no edema Gastrointestinal: + nausea; no abdominal pain and no vomiting Neurologic: no confusion Psychiatric: + depression and + anxiety Physical Exam Vital Signs (Past 24 Hours): Last Vital Signs Temp 36.8 C 06/27/18 10:59 Pulse 82 06/27/18 10:59 Resp 15 06/27/18 10:59 BP 129/53 L 06/27/18 10:59 Pulse Ox 94 06/27/18 10:59 Constitutional: + ill appearing and + overweight Eyes: PERRL ENMT: external ear and nose normal, oropharynx normal Ears: no hearing impairment Neck: normal visual inspection and trachea midline Respiratory: normal respiratory effort, lungs clear to auscultation Auscultation: + diminished lung sounds Cardiovascular: RRR, no murmur, no edema Gastrointestinal (Abdomen): Inspection/Auscultation: abdomen normal to inspection and normal bowel sounds; abdomen not distended Percussion/Palpation: abdomen soft; abdomen nontender Skin: + pallor Neurologic: awake; not confused Psychiatric: Orientation: alert and oriented x 3 Affect: + depressed affect and + flat affect Insight: good insight Time Spent Midlevel 35 minutes with >50% of time spent at bedside with patient discussing condition and GOC. (1) Pulmonary embolism Pulmonary embolism type: saddle Chronicity: unspecified Acute cor pulmonale presence: without acute cor pulmonale Qualified Code(s): I26.92 - Saddle embolus of pulmonary artery without acute cor pulmonale
--- NOTE | 2018-06-27 12:01 | Hospitalist Progress Note ---
Date of Service June 27, 2018 Assessment & Plan (1) Pulmonary embolism: ACTIVE ISSUES: Bilateral pulmonary embolus Hypoxia Hypertension CKD stage III Diabetes mellitus type 2 Bacteremia secondary to MRSA and VRE Anemia secondary to chronic disease Bilateral lower extremity cellulitis-resolved Acute lymphoblastic leukemia Thrombocytopenia Secondary hyperparathyroidism Vitamin D deficiency Dyslipidemia Heparin drip continued. Vascular surgery consulted to consider IVC filter. Hematology consulted to continue the discussion of IVC filter versus long-term anticoagulation in setting of PE which will need to be treated a minimum of 3 months. Currently she is not having bleeding, but is transfusion dependent and her H/H is trending down already. May need transfusion in am. If anemia doesn't allow once daily Lovenox as the preferred treatment, will need to place an IVC filter. Will trend CBC daily. The patient did not appear to have a transfusion reaction to irradiated blood although acute hypoxia presented at this time. Continue supplemental oxygen for persistent hypoxia. Lisinopril was added this admission for elevated blood pressure, and held when transferred to ICU. Blood pressure has remained stable without re- administration of lisinopril, continue to be held in the setting of FREDDY. Bumex also on hold in setting of AK I. Intra-arterial TPA for saddle embolus will not be pursued. Continue supportive care. Continue trending lab work. Continue anticoagulation plan per hematology. Ultimately transfer to [facility]. Continue Sprycel for treatment of ALL. CODE STATUS changed to DO NOT RESUSCITATE Disposition-transfer to PCU [facility] Hospitalist Subjective doing well today denies pain reports weakness to the point she refuses PT and cannot get out of bed we discussed her goals of therapy and options tolerating PO Physical Exam Vital Signs (Past 24 Hours): Last Vital Signs Temp 36.8 C 06/27/18 10:59 Pulse 82 06/27/18 10:59 Resp 15 06/27/18 10:59 BP 129/53 L 06/27/18 10:59 Pulse Ox 94 06/27/18 10:59 CONSTITUTIONAL: obese, vitals as above, NAD EYES: normal conjuctivae, no scleral icterus RESPIRATORY: Normal respiratory effort, at bases bilaterally. CARDIOVASCULAR: regular rate and rhythm, S1 and 2 heard without murmurs, gallops or rubs, no JVD, no peripheral edema GASTROINTESTINAL: soft, nontender, nondistended, no guarding. MUSCULOSKELETAL: generalized weakness, head is normocephalic and atraumatic SKIN: warm and dry NEUROLOGIC: CN 2-12 grossly intact, no sensory deficit, normal cognition, normal speech PSYCHIATRIC: alert cooperative and oriented to person, place and time. Flat affect Results & Data Laboratory Results Short CBC 06/27/18 Range/Units 07:53 WBC 8.29 (4.8-10.8) K/uL Hgb 7.9 L (12.0-16.0) g/dL Hct 25.4 L (37-47) % Plt Count 149 (130-400) K/uL BMP 06/27/18 07:53 Sodium 140 Potassium 4.0 Chloride 103 Carbon Dioxide 32 BUN 37 H Creatinine 1.38 H Glucose 132 H Calcium 7.7 L Liver Function 06/27/18 Range/Units 07:53 Total Bilirubin 0.7 (0.2-1) mg/dl Direct Bilirubin 0.2 (0-0.2) mg/dl AST 32 (15-37) U/L ALT 85 H (12-78) U/L Alkaline Phosphatase 130 H (45-117) U/L Albumin 2.2 L (3.4-5.0) gm/dl Medications Administered Current Inpatient Medications Acetaminophen (Tylenol) 650 mg PO Q4H PRN PRN Reason: Pain or Fever Stop: 07/12/18 20:31 Acyclovir (Zovirax) 400 mg PO BID MOIRA; Protocol Stop: 07/18/18 20:59 Last Admin: 06/27/18 09:26 Dose: 400 mg Documented by: Allopurinol (Zyloprim) 300 mg PO DAILY MOIRA Stop: 07/13/18 08:59 Last Admin: 06/25/18 09:36 Dose: 300 mg Documented by: Bisacodyl (Dulcolax) 10 mg IA DAILY PRN PRN Reason: Constipation Stop: 07/26/18 17:06 Dapsone (Dapsone) 100 mg PO DAILY [facility] Stop: 07/13/18 08:59 Last Admin: 06/27/18 09:26 Dose: 100 mg Documented by: Dasatinib (Sprycel) 1 ea PO BID MOIRA Stop: 07/17/18 13:59 Last Admin: 06/27/18 09:28 Dose: 1 ea Documented by: Dextrose (Dextrose 50%) 25 - 50 ml IV UD PRN; Protocol PRN Reason: Hypoglycemia Protocol Stop: 07/12/18 21:26 Escitalopram Oxalate (Lexapro) 5 mg PO DAILY MOIRA Stop: 07/13/18 08:59 Last Admin: 06/27/18 09:25 Dose: 5 mg Documented by: Glucagon (Glucagen) 1 mg SQ UD PRN; Protocol PRN Reason: Hypoglycemia Protocol Stop: 07/12/18 21:26 Glucose (Glucose 40%) 15 - 30 gm PO UD PRN; Protocol PRN Reason: Hypoglycemia Protocol Stop: 07/12/18 21:26 Glucose (Dex4 Glucose) 4 - 8 tabs PO UD PRN; Protocol PRN Reason: Hypoglycemia Protocol Stop: 07/12/18 21:26 Daptomycin 450 mg/ Syringe 9 mls @ 4.5 mls/min IV Q24H [facility]; Protocol Stop: 07/05/18 01:59 Last Admin: 06/27/18 03:18 Dose: 4.5 mls/min Documented by: Sodium Chloride (Nss 1000ml) 1,000 mls @ 50 mls/hr IV .Q20H MOIRA Stop: 07/25/18 01:16 Last Admin: 06/26/18 17:06 Dose: 50 mls/hr Documented by: Heparin Sodium/Dextrose (Heparin Sodium/Dextrose) 25,000 units in 500 mls @ 16 mls/hr IV .Q24H [facility]; Protocol Stop: 07/25/18 01:44 Last Admin: 06/27/18 09:34 Dose: 800 units/hr, 16 mls/hr Documented by: Insulin Aspart (Novolog Flexpen) 0 units SC ACHS MOIRA Stop: 07/26/18 11:29 Last Admin: 06/27/18 09:30 Dose: 4 units Documented by: Insulin Detemir (Levemir Flextouch) 10 units SC BID MOIRA Stop: 07/26/18 10:59 Last Admin: 06/27/18 09:27 Dose: 10 units Documented by: Levalbuterol HCl (Xopenex 0.63 Mg/3 Ml Neb) 0.63 mg NEB TID PRN PRN Reason: Wheezing Stop: 07/25/18 13:59 Last Admin: 06/26/18 15:07 Dose: 0.63 mg Documented by: Metoprolol Succinate (Toprol Xl) 50 mg PO DAILY MOIRA Stop: 07/26/18 08:59 Last Admin: 03/05/19 09:26 Dose: 50 mg Documented by: Miscellaneous (Carbohydrates For Hypoglycemia) 15 - 30 gm PO UD PRN PRN Reason: Hypoglycemia Treatment Stop: 07/12/18 21:26 Miscellaneous Information (Consult) 1 ea N/A UD PRN PRN Reason: Consult Stop: 07/12/18 22:20 Multivitamins/Minerals (Multivitamin W/ Minerals Tab) 1 tab PO DAILY MOIRA Stop: 07/13/18 08:59 Last Admin: 06/27/18 09:26 Dose: 1 tab Documented by: Ondansetron HCl (Zofran) 4 mg IV Q8H PRN PRN Reason: Nausea Stop: 07/18/18 12:05 Last Admin: 06/26/18 16:51 Dose: 4 mg Documented by: Pantoprazole Sodium (Protonix) 40 mg PO BID [facility] Stop: 07/12/18 21:26 Last Admin: 06/27/18 09:26 Dose: 40 mg Documented by: Polyethylene Glycol (Miralax Powder Packet) 17 gm PO DAILY PRN PRN Reason: Constipation Stop: 07/26/18 17:06 Fluticasone/Salmeterol (Advair Diskus 250/50) 1 puffs INH BID MOIRA Stop: 07/12/18 21:26 Last Admin: 06/27/18 09:27 Dose: 1 puffs Documented by: Tramadol HCl (Ultram) 50 mg PO Q6H PRN PRN Reason: Pain Stop: 07/12/18 21:26 Last Admin: 06/22/18 08:41 Dose: 50 mg Documented by: (1) Pulmonary embolism Acute cor pulmonale presence: without acute cor pulmonale Chronicity: unspecified Pulmonary embolism type: saddle Qualified Code(s): I26.92 - Saddle embolus of pulmonary artery without acute cor pulmonale
--- NOTE | 2018-06-27 14:44 | Pharmacy Report ---
Pharmacy Glycemic Short Note 2 - Date of Service June 27, 2018 - Glycemic Short BSG Results (Last 24 hours): 06/26/18 06/26/18 06/27/18 16:21 20:47 07:05 Glucose POC Glucose 212 H 208 H 133 H 06/27/18 06/27/18 07:53 11:03 Glucose 132 H POC Glucose 221 H OUTPATIENT ANTIDIABETIC REGIMEN: * Levemir 18 units Q AM + 14 units Q PM * Novolog 6 units w/ each meal * A1c = ? (not checked secondary to x-fusions) ASSESSMENT: 06/27 * Fasting BSG at goal this AM with 20 units of Levemir on board (FBS 133) * Post-prandial BSGs elevated yesterday, will increase CF and CR doses today PLAN FOR INPATIENT GLYCEMIC CONTROL: * Basal insulin (no change) * Levemir 10 units SQ BID * Bolus insulin (dose increase) * NovoLog per scale ACHS or Q6hrs while NPO * Goal Range: Low 110 mg/dL - High 140 mg/dL * Correction Factor: 25 mg/dL/unit * Nutritional / Prandial insulin per carb ratio of 1 unit per 8 grams CHO consumed PLAN FOR DISCHARGE: * to be determined
[2018-06-28 05:09] LABS: Basophils # (auto) 0.02 K/uL (0-0.2); Basophils % (auto) 0.3 %; Eosinophils # (auto) 0.07 K/uL (0-0.5); Hematocrit (blood only) 23.4 % (37-47); Hemoglobin 7.1 g/dL (12.0-16.0); Immature Granulocytes # (auto) 0.14 K/uL (0.00-0.02); Immature Granulocytes % (auto) 2.1 %; Lymphocytes # (auto) 0.67 K/uL (1.2-3.4); Lymphocytes % (auto) 9.9 %; Mean Corpuscular Hgb Conc 30.3 g/dL (32-36); Mean Corpuscular Volume 99.2 fL (80-100); Mean Platelet Volume 9.8 fL (7.4-10.4); Monocytes # (auto) 0.37 K/uL (0.11-0.59); Monocytes % (auto) 5.5 %; Neutrophils # (auto) 5.49 K/uL (1.4-6.5); Neutrophils % (auto) 81.2 %; Nucleated RBC # (auto) 0.04 K/uL (0-0); Nucleated RBC % (auto) 0.6 %; Platelet Count 161 K/uL (130-400); RDW Coefficient of Variation 21.6 % (11.5-14.5); RDW Standard Deviation 73.1 fL (36.4-46.3); Red Blood Count 2.36 M/uL (4.2-5.4); White Blood Count 6.76 K/uL (4.8-10.8)
[2018-06-28 05:27] LABS: BUN Creatinine Ratio 25.4 (10-20); Calcium 7.4 mg/dl (8.5-10.1); Creatinine Clr Calc Pharmacy 53.4 ml/min; Est GFR (African American) 59.1; Magnesium 2.1 mg/dl (1.8-2.4); Potassium 3.6 mmol/L (3.5-5.1)
[2018-06-28 05:28] LABS: Phosphorus 2.6 mg/dl (2.5-4.9)
[2018-06-28 05:34] LABS: Partial Thromboplastin Ratio 1.9
[2018-06-28 05:49] LABS: Partial Thromboplastin Time 52.7 Seconds (21.0-31.0)
[2018-06-28 05:52] LABS: Anisocytosis Present; Polychromasia 1+
--- NOTE | 2018-06-28 09:57 | Pharmacy Report ---
Pharmacy Glycemic Short Note 2 - Date of Service June 28, 2018 - Glycemic Short BSG Results (Last 24 hours): 06/27/18 06/27/18 06/27/18 11:03 16:09 20:20 Glucose POC Glucose 221 H 166 H 140 H 06/28/18 06/28/18 04:48 07:03 Glucose 149 H POC Glucose 145 H OUTPATIENT ANTIDIABETIC REGIMEN: * Levemir 18 units Q AM + 14 units Q PM * Novolog 6 units w/ each meal * A1c = ? (not checked secondary to x-fusions) ASSESSMENT: 06/28 * Fasting BSG near goal this AM, again with 20 units of Levemir on board (FBS 145) - no change * Post-prandial BSGs improved at HS following change in CF and CR yesterday afternoon - no change. Will monitor post-prandial trend 06/27 * Fasting BSG at goal this AM with 20 units of Levemir on board (FBS 133) * Post-prandial BSGs elevated yesterday, will increase CF and CR doses today PLAN FOR INPATIENT GLYCEMIC CONTROL: * Basal insulin (no change) * Levemir 10 units SQ BID * Bolus insulin (no change) * NovoLog per scale ACHS or Q6hrs while NPO * Goal Range: Low 110 mg/dL - High 140 mg/dL * Correction Factor: 25 mg/dL/unit * Nutritional / Prandial insulin per carb ratio of 1 unit per 8 grams CHO consumed PLAN FOR DISCHARGE: * Home insulin regimen would provide a total daily insulin dose similar to what is begin given during this hospitalization. We do not have A1c to guide treatment decisions due to recent transfusions. Would recommend resumption of home regimen w/ close f/u with PCP or endocrinology.
--- NOTE | 2018-06-28 11:02 | Hospitalist Progress Note ---
Date of Service June 28, 2018 Assessment & Plan (1) Pulmonary embolism: ACTIVE ISSUES: Bilateral pulmonary embolus Hypoxia Hypertension CKD stage III Diabetes mellitus type 2 Bacteremia secondary to MRSA and VRE Anemia secondary to chronic disease Bilateral lower extremity cellulitis-resolved Acute lymphoblastic leukemia Thrombocytopenia Secondary hyperparathyroidism Vitamin D deficiency Dyslipidemia Heparin drip continued. Vascular surgery says no need for IVC filter at this time. Hematology on case. Currently she is not having bleeding, but is transfusion dependent and her H/H is trending down already. May need transfusion soon. Will trend CBC daily. The patient did not appear to have a transfusion reaction to irradiated blood although acute hypoxia presented at this time. Continue supplemental oxygen for persistent hypoxia. Lisinopril was added this admission for elevated blood pressure. Blood pressure has remained stable without re-administration of lisinopril, continue to be held in the setting of FREDDY. Bumex also on hold in setting of FREDDY. Continue anticoagu lation plan per hematology. Ultimately transfer to [facility]. Continue Sprycel for treatment of ALL. CODE STATUS changed to DO NOT RESUSCITATE Disposition-PCU Subjective Feeling better today, eating better ROS-No Headache, No Visual Changes, No Nausea, No Vomiting, No Fever, No Chills, No Neck Pain or Stiffness, No Chest Pain, No Palpitations, No SOB, No LINARES, No Cough, No Sputum, No Wheezing, No Abdominal Pain, No Diarrhea, No Hematemesis, No Hemoptysis, No Unexpected Weight Loss, No Flank pain, No Melena, No Hemat ochezia, No Frequency, No Urgency, No Burning, No Hematuria, No Rashes, No Diaphoresis. Appetite is Normal Physical Exam Gen-AAO x 3, NAD, Afebrile Head-NCAT, EOMI, PERRLA, Anicteric Sclera, No Posterior Pharyngeal Erythema Neck-Supple, No JVD, No Thyromegaly, No Masses, No LAD, No Bruits Lungs-Clear to Auscultation Bilaterally, No Rales, No Rhonchi, No Wheezing, No Crepitus Chest-No S4, +S1, +S2, No S3, No Murmurs, No Rubs, No Gallops, No Ectopy Abdomen-Soft, Bowel Sounds Present, Non Tender, Non Distended, No Hepatomegaly, No Splenomegaly, No Palpable Masses, No Rebound, No Rigidity, No Guarding Musculoskeletal-Full Range of Motion Bilaterally, No CVAT Extremities-No Cyanosis, No Clubbing, No Edema Nuero-Cranial Nerves II-XII grossly intact, Motor WNL, DTRs WNL, Strength WNL, Non Focal Psych-Normal Mood Physical Exam Vital Signs (Past 24 Hours): Last Vital Signs Temp 37.1 C 06/28/18 07:00 Pulse 84 06/28/18 07:00 Resp 13 06/28/18 07:00 BP 137/62 06/28/18 07:00 Pulse Ox 93 06/28/18 10:23 Results & Data Laboratory Results Current Diagnose Sepsis due to Methicillin resistant Staphylococcus aureus (06/12/18) Other specified sepsis (06/12/18) Zoster without complications (06/12/18) Acute lymphoblastic leukemia not having achieved remission (06/12/18) Anemia, unspecified (06/12/18) Thrombocytopenia, unspecified (06/12/18) Type 2 diabetes mellitus without complications (06/12/18) Vitamin D deficiency, unspecified (06/12/18) Hyperlipidemia, unspecified (06/12/18) Other disorders of phosphorus metabolism (06/12/18) Hypocalcemia (06/12/18) Hypokalemia (06/12/18) Idiopathic sleep related nonobstructive alveolar hypoventilation (06/12/18) Essential (primary) hypertension (06/12/18) Saddle embolus of pulmonary artery without acute cor pulmonale (06/12/18) Chronic obstructive pulmonary disease, unspecified (06/12/18) Acute respiratory failure with hypoxia (06/12/18) Other diseases of bronchus, not elsewhere classified (06/12/18) Gastro-esophageal reflux disease without esophagitis (06/12/18) Cellulitis of unspecified part of limb (06/12/18) Chronic kidney disease, stage 3 (moderate) (06/12/18) Secondary hyperparathyroidism of renal origin (06/12/18) Hypoxemia (06/12/18) Diarrhea, unspecified (06/12/18) Localized edema (06/12/18) Abnormal levels of other serum enzymes (06/12/18) Bacteremia (06/12/18) Unspecified transfusion reaction, initial encounter (06/12/18) Encounter for administrative examinations, unspecified (06/12/18) Other specified counseling (06/12/18) Allergies No Known Allergies Allergy (Verified 06/12/18 17:53) Height/Weight/Isolation Height 5 ft 6 in Weight 81 kg Isolation Type Contact Precautions Chemistry 06/27/18 06/28/18 07:53 04:48 Sodium 140 139 Potassium 4.0 3.6 Chloride 103 105 Carbon Dioxide 32 31 Anion Gap 5.0 3.0 BUN 37 H 28 H Creatinine 1.38 H 1.09 Glucose 132 H 149 H (1) Pulmonary embolism Pulmonary embolism type: saddle Chronicity: unspecified Acute cor pulmonale presence: without acute cor pulmonale Qualified Code(s): I26.92 - Saddle embolus of pulmonary artery without acute cor pulmonale
[2018-06-28 11:54] LABS: Hematocrit (blood only) 25.6 % (37-47); Hemoglobin 7.8 g/dL (12.0-16.0)
[2018-06-28 19:35] LABS: Hematocrit (blood only) 22.6 % (37-47)
[2018-06-29 06:21] LABS: Hematocrit (blood only) 22.2 % (37-47); Hemoglobin 6.8 g/dL (12.0-16.0); Mean Corpuscular Hgb Conc 30.6 g/dL (32-36); Mean Corpuscular Volume 100.5 fL (80-100); Nucleated RBC # (auto) 0.06 K/uL (0-0); Platelet Count 177 K/uL (130-400); RDW Coefficient of Variation 22.1 % (11.5-14.5); RDW Standard Deviation 77.6 fL (36.4-46.3); Red Blood Count 2.21 M/uL (4.2-5.4); White Blood Count 5.89 K/uL (4.8-10.8)
[2018-06-29 06:22] LABS: Anisocytosis Present; Basophils # (auto) 0.03 K/uL (0-0.2); Basophils % (auto) 0.5 %; Eosinophils # (auto) 0.06 K/uL (0-0.5); Immature Granulocytes % (auto) 3.4 %; Lymphocytes # (auto) 0.77 K/uL (1.2-3.4); Lymphocytes % (auto) 13.1 %; Monocytes # (auto) 0.43 K/uL (0.11-0.59); Monocytes % (auto) 7.3 %; Neutrophils % (auto) 74.7 %; Polychromasia 1+; Spherocytes Occasional
[2018-06-29 06:31] LABS: Albumin Globulin Ratio 0.6 (0.9-2); Albumin Level 1.9 gm/dl (3.4-5.0); BUN Creatinine Ratio 20.5 (10-20); Bilirubin,Total 0.5 mg/dl (0.2-1); Calcium 7.7 mg/dl (8.5-10.1); Creatinine Clr Calc Pharmacy 63.2 ml/min; Est GFR (African American) 75.6; Est GFR (Non-African American) 65.2; Globulin 3.4 gm/dl (2.5-4.0); Phosphorus 2.8 mg/dl (2.5-4.9); Potassium 3.5 mmol/L (3.5-5.1); Total Protein 5.3 gm/dl (6.4-8.2)
[2018-06-29 06:38] LABS: Partial Thromboplastin Ratio 1.8
[2018-06-29 06:49] LABS: Partial Thromboplastin Time 49.6 Seconds (21.0-31.0)
--- NOTE | 2018-06-29 11:53 | Hospitalist Progress Note ---
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 Vascular surgery says no need for IVC filter. Hematology on case. Currently she is not having bleeding, but is transfusion dependent and her H/H is trending down. 5th transfusion today. Continue supplemental oxygen 3L NC for persistent hypoxia. Lisinopril was added this admission for elevated blood pressure. Blood pressure has remained stable without re-administration of lisinopril, continue to be held in the setting of FREDDY. Bumex also on hold in setting of FREDDY. Continue anticoagulation plan per hematology, will start warfarin today. Ultimately transfer to [facility] on 07/03. Continue Sprycel for treatment of ALL. CODE STATUS changed to DO NOT RESUSCITATE Disposition-PCU Subjective Feeling better today, eating better, globin dropped to 6.8 she needed another unit of blood. ROS-No Headache, No Visual Changes, No Nausea, No Vomiting, No Fever, No Chills, No Neck Pain or Stiffness, No Chest Pain, No Palpitations, No SOB, No LINARES, No Cough, No Sputum, No Wheezing, No Abdominal Pain, No Diarrhea, No Hematemesis, No Hemoptysis, No Unexpected Weight Loss, No Flank pain, No Melena, No Hematochezia, No Frequency, No Urgency, No Burning, No Hematuria, No Rashes, No Diaphoresis. Appetite is Normal Physical Exam Gen-AAO x 3, NAD, Afebrile Head-NCAT, EOMI, PERRLA, Anicteric Sclera, No Posterior Pharyngeal Erythema Neck-Supple, No JVD, No Thyromegaly, No Masses, No LAD, No Bruits Lungs-Clear to Auscultation Bilaterally, No Rales, No Rhonchi, No Wheezing, No Crepitus Chest-No S4, +S1, +S2, No S3, No Murmurs, No Rubs, No Gallops, No Ectopy Abdomen-Soft, Bowel Sounds Present, Non Tender, Non Distended, No Hepatomegaly, No Splenomegaly, No Palpable Masses, No Rebound, No Rigidity, No Guarding Musculoskeletal-Full Range of Motion Bilaterally, No CVAT Extremities-No Cyanosis, No Clubbing, No Edema Nuero-Cranial Nerves II-XII grossly intact, Motor WNL, DTRs WNL, Strength WNL, Non Focal Psych-Normal Mood Physical Exam Vital Signs (Past 24 Hours): Last Vital Signs Temp 36.4 C L 06/29/18 11:03 Pulse 78 06/29/18 11:03 Resp 18 06/29/18 11:03 BP 198/71 H 06/29/18 11:03 Pulse Ox 93 06/29/18 11:03 Results & Data Laboratory Results Current Diagnoses Sepsis due to Methicillin resistant Staphylococcus aureus (06/12/18) Other specified sepsis (06/12/18) Zoster without complications (06/12/18) Acute lymphoblastic leukemia not having achieved remission (06/12/18) Anemia, unspecified (06/12/18) Thrombocytopenia, unspecified (06/12/18) Type 2 diabetes mellitus without complications (06/12/18) Vitamin D deficiency, unspecified (06/12/18) Hyperlipidemia, unspecified (06/12/18) Other disorders of phosphorus metabolism (06/12/18) Hypocalcemia (06/12/18) Hypokalemia (06/12/18) Idiopathic sleep related nonobstructive alveolar hypoventilation (06/12/18) Essential (primary) hypertension (06/12/18) Saddle embolus of pulmonary artery without acute cor pulmonale (06/12/18) Chronic obstructive pulmonary disease, unspecified (06/12/18) Acute respiratory failure with hypoxia (06/12/18) Other diseases of bronchus, not elsewhere classified (06/12/18) Gastro-esophageal reflux disease without esophagitis (06/12/18) Cellulitis of unspecified part of limb (06/12/18) Chronic kidney disease, stage 3 (moderate) (06/12/18) Secondary hyperparathyroidism of renal origin (06/12/18) Hypoxemia (06/12/18) Diarrhea, unspecified (06/12/18) Localized edema (06/12/18) Abnormal levels of other serum enzymes (06/12/18) Bacteremia (06/12/18) Unspecified transfusion reaction, initial encounter (06/12/18) Encounter for administrative examinations, unspecified (06/12/18) Other specified counseling (06/12/18) Allergies No Known Allergies Allergy (Verified 06/12/18 17:53) Height/Weight/Isolation Height 5 ft 6 in Weight 83.6 kg Isolation Type Contact Precautions Chemistry 06/28/18 06/29/18 04:48 04:49 Sodium 139 142 Potassium 3.6 3.5 Chloride 105 108 H Carbon Dioxide 31 31 Anion Gap 3.0 4.0 BUN 28 H 18 Creatinine 1.09 0.89 Glucose 149 H 100 H (1) Pulmonary embolism Pulmonary embolism type: saddle Chronicity: unspecified Acute cor pulmonale presence: without acute cor pulmonale Qualified Code(s): I26.92 - Saddle embolus of pulmonary artery without acute cor pulmonale
--- NOTE | 2018-06-29 13:23 | Pharmacy Report ---
Pharmacy Glycemic Short Note 2 - Date of Service June 29, 2018 - Glycemic Short BSG Results (Last 24 hours): 06/28/18 06/28/18 06/29/18 16:14 20:29 04:49 Glucose 100 H POC Glucose 168 H 110 H 06/29/18 06/29/18 07:07 11:02 Glucose POC Glucose 147 H 187 H OUTPATIENT ANTIDIABETIC REGIMEN: * Levemir 18 units Q AM + 14 units Q PM * Novolog 6 units w/ each meal * A1c = ? (not checked secondary to x-fusions) ASSESSMENT: 06/29 * Fasting near goal this AM, with 20 units of levemir (FBS 147)- no change * Post-prandial BSGs continue to be near or within goal range- no change today * Lunch BSGs tend to be elevated can consider tightened carb ratio with breakfast if continued. 06/28 * Fasting BSG near goal this AM, again with 20 units of Levemir on board (FBS 145) - no change * Post-prandial BSGs improved at HS following change in CF and CR yesterday afternoon - no change. Will monitor post-prandial trend 06/27 * Fasting BSG at goal this AM with 20 units of Levemir on board (FBS 133) * Post-prandial BSGs elevated yesterday, will increase CF and CR doses today PLAN FOR INPATIENT GLYCEMIC CONTROL: * Basal insulin (no change) * Levemir 10 units SQ BID * Bolus insulin (no change) * NovoLog per scale ACHS or Q6hrs while NPO * Goal Range: Low 110 mg/dL - High 140 mg/dL * Correction Factor: 25 mg/dL/unit * Nutritional / Prandial insulin per carb ratio of 1 unit per 8 grams CHO consumed PLAN FOR DISCHARGE: * Home insulin regimen would provide a total daily insulin dose similar to what is begin given during this hospitalization. We do not have A1c to guide treatment decisions due to recent transfusions. Would recommend resumption of home regimen w/ close f/u with PCP or endocrinology.
[2018-06-29 16:17] LABS: Prothrombin Time 10.5 Seconds (9.0-12.0)
[2018-06-30 03:45] LABS: Hemoglobin 8.1 g/dL (12.0-16.0); Mean Corpuscular Hgb Conc 31.2 g/dL (32-36); Mean Corpuscular Volume 97.4 fL (80-100); Mean Platelet Volume 10.1 fL (7.4-10.4); Nucleated RBC # (auto) 0.13 K/uL (0-0); Nucleated RBC % (auto) 2.3 %; Platelet Count 187 K/uL (130-400); RDW Standard Deviation 67.8 fL (36.4-46.3); Red Blood Count 2.67 M/uL (4.2-5.4); White Blood Count 5.95 K/uL (4.8-10.8)
[2018-06-30 04:04] LABS: Partial Thromboplastin Ratio 2.1
[2018-06-30 04:05] LABS: BUN Creatinine Ratio 19.1 (10-20); Calcium 7.6 mg/dl (8.5-10.1); Creatinine Clr Calc Pharmacy 66.1 ml/min; Est GFR (African American) 79.9; Est GFR (Non-African American) 68.9; Potassium 3.7 mmol/L (3.5-5.1)
[2018-06-30 04:07] LABS: Partial Thromboplastin Time 56.9 Seconds (21.0-31.0)
--- NOTE | 2018-06-30 08:32 | Pharmacy Report ---
Pharmacy Glycemic Short Note 2 - Date of Service June 30, 2018 - Glycemic Short BSG Results (Last 24 hours): 06/29/18 06/29/18 06/29/18 07:07 11:02 16:29 Glucose POC Glucose 147 H 187 H 127 H 06/29/18 06/30/18 06/30/18 20:35 03:31 07:06 Glucose 91 POC Glucose 147 H 113 H OUTPATIENT ANTIDIABETIC REGIMEN: * Levemir 18 units Q AM + 14 units Q PM * Novolog 6 units w/ each meal * A1c = ? (not checked secondary to x-fusions) ASSESSMENT: 06/30 * Fasting BSG at goal this AM w/ 20 units Levemir on board (FBS 113) - no change * All post-prandial BSGs at goal yesterday with the exception of small evelation in prelunch BSG (187) - no change today. If prelunch elevated again today will increase breakfast prandial insulin dose. 06/29 * Fasting near goal this AM, with 20 units of levemir (FBS 147)- no change * Post-prandial BSGs continue to be near or within goal range- no change today * Lunch BSGs tend to be elevated can consider tightened carb ratio with breakfast if continued. 06/28 * Fasting BSG near goal this AM, again with 20 units of Levemir on board (FBS 145) - no change * Post-prandial BSGs improved at HS following change in CF and CR yesterday afternoon - no change. Will monitor post-prandial trend 06/27 * Fasting BSG at goal this AM with 20 units of Levemir on board (FBS 133) * Post-prandial BSGs elevated yesterday, will increase CF and CR doses today PLAN FOR INPATIENT GLYCEMIC CONTROL: * Basal insulin (no change) * Levemir 10 units SQ BID * Bolus insulin (no change) * NovoLog per scale ACHS or Q6hrs while NPO * Goal Range: Low 110 mg/dL - High 140 mg/dL * Correction Factor: 25 mg/dL/unit * Nutritional / Prandial insulin per carb ratio of 1 unit per 8 grams CHO consumed PLAN FOR DISCHARGE: * Home insulin regimen would provide a total daily insulin dose similar to what is begin given during this hospitalization. We do not have A1c to guide treatment decisions due to recent transfusions. Would recommend resumption of home regimen w/ close f/u with PCP or endocrinology.
--- NOTE | 2018-06-30 09:37 | Hospitalist Progress Note ---
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 Vascular surgery said no need for IVC filter. Hematology on case. Currently she is not bleeding, but is transfusion dependent and her H/H was trending down. 5th transfusion 06/29. Continue supplemental oxygen 3L NC for persistent hypoxia. Lisinopril was added this admission for elevated blood pressure. Blood pressure has remained stable without re-administration of lisinopril, continue to be held in the setting of FREDDY. Bumex also on hold in setting of FREDDY. Continue anticoagulation plan per hematology, will start warfarin today. Ultimately transfer to [facility] on 07/03. Continue Sprycel for treatment of ALL. CODE STATUS changed to DO NOT RESUSCITATE Disposition-Med surg Subjective Feeling better today, eating better, Hb dropped to 6.8 on 06/29, she needed another unit of blood and Hb now 8.1. ROS-No Headache, No Visual Changes, No Nausea, No Vomiting, No Fever, No Chills, No Neck Pain or Stiffness, No Chest Pain, No Palpitations, No SOB, No LINARES, No Cough, No Sputum, No Wheezing, No Abdominal Pain, No Diarrhea, No Hematemesis, No Hemoptysis, No Unexpected Weight Loss, No Flank pain, No Melena, No Hematochezia, No Frequency, No Urgency, No Burning, No Hematuria, No Rashes, No Diaphoresis. Appetite is Normal Physical Exam Gen-AAO x 3, NAD, Afebrile Head-NCAT, EOMI, PERRLA, Anicteric Sclera, No Posterior Pharyngeal Erythema Neck-Supple, No JVD, No Thyromegaly, No Masses, No LAD, No Bruits Lungs-Clear to Auscultation Bilaterally, No Rales, No Rhonchi, No Wheezing, No Crepitus Chest-No S4, +S1, +S2, No S3, No Murmurs, No Rubs, No Gallops, No Ectopy Abdomen-Soft, Bowel Sounds Present, Non Tender, Non Distended, No Hepatomegaly, No Splenomegaly, No Palpable Masses, No Rebound, No Rigidity, No Guarding Musculoskeletal-Full Range of Motion Bilaterally, No CVAT Extremities-No Cyanosis, No Clubbing, No Edema Nuero-Cranial Nerves II-XII grossly intact, Motor WNL, DTRs WNL, Strength WNL, Non Focal Psych-Normal Mood Physical Exam Vital Signs (Past 24 Hours): Last Vital Signs Temp 36.9 C 06/30/18 06:48 Pulse 74 06/30/18 06:48 Resp 17 06/30/18 06:48 BP 126/54 L 06/30/18 06:48 Pulse Ox 95 06/30/18 06:48 Results & Data Laboratory Results Current Diagnoses Sepsis due to Methicillin resistant Staphylococcus aureus (06/12/18) Other specified sepsis (06/12/18) Zoster without complications (06/12/18) Acute lymphoblastic leukemia not having achieved remission (06/12/18) Anemia, unspecified (06/12/18) Thrombocytopenia, unspecified (06/12/18) Type 2 diabetes mellitus without complications (06/12/18) Vitamin D deficiency, unspecified (06/12/18) Hyperlipidemia, unspecified (06/12/18) Other disorders of phosphorus metabolism (06/12/18) Hypocalcemia (06/12/18) Hypokalemia (06/12/18) Idiopathic sleep related nonobstructive alveolar hypoventilation (06/12/18) Essential (primary) hypertension (06/12/18) Saddle embolus of pulmonary artery without acute cor pulmonale (06/12/18) Chronic obstructive pulmonary disease, unspecified (06/12/18) Acute respiratory failure with hypoxia (06/12/18) Other diseases of bronchus, not elsewhere classified (06/12/18) Gastro-esophageal reflux disease without esophagitis (06/12/18) Cellulitis of unspecified part of limb (06/12/18) Chronic kidney disease, stage 3 (moderate) (06/12/18) Secondary hyperparathyroidism of renal origin (06/12/18) Hypoxemia (06/12/18) Diarrhea, unspecified (06/12/18) Localized edema (06/12/18) Abnormal levels of other serum enzymes (06/12/18) Bacteremia (06/12/18) Unspecified transfusion reaction, initial encounter (06/12/18) Encounter for administrative examinations, unspecified (06/12/18) Other specified counseling (06/12/18) Allergies No Known Allergies Allergy (Verified 06/12/18 17:53) Height/Weight/Isolation Height 5 ft 6 in Weight 90.8 kg Isolation Type Contact Precautions Chemistry 06/29/18 06/30/18 04:49 03:31 Sodium 142 143 Potassium 3.5 3.7 Chloride 108 H 110 H Carbon Dioxide 31 30 Anion Gap 4.0 3.0 BUN 18 16 Creatinine 0.89 0.85 Glucose 100 H 91 (1) Pulmonary embolism Pulmonary embolism type: saddle Chronicity: unspecified Acute cor pulmonale presence: without acute cor pulmonale Qualified Code(s): I26.92 - Saddle embolus of pulmonary artery without acute cor pulmonale
--- NOTE | 2018-06-30 14:21 | Palliative Care Progress Note ---
Date of Service June 30, 2018 Assessment & Plan (1) Goals of care, counseling/discussion: (1) Goals of care, counseling/discussion: -Patient continues to feel weak and fatigued today. Unable to work with PT/OT due to her weakness/fatigue. -Patient is very vague and undecided about her goals of care. She wishes to speak with her daughter who is to arrive this evening and be here for the weekend (Daughter Marissa) -Uncertain of long-term planning/goals at this time. She is accepted to [facility] upon discharge. Plan was for rehab and IV abx. Case management is following. -Remains on IV daptomycin.Transitioned to coumadin. -Hgb 8.1 today. Has required 5 units of packed cells since admission on 06/12 -Will continue to follow. -PPS 40% currently. (2) Mucoid impaction of bronchi: -Patient declines bronchoscopy or intubation. -Managed by hospitalist. (3) Pulmonary embolism: -In the setting of acute leukemia, immobility. -Now with BLE DVT. -On Coumadin -Managed by hospitalist. (4) ALL (acute lymphoblastic leukemia): -Currently undergoing treatment. -transfusion-dependent. -Current performance status likely to deter any further treatment at this time. -Needs to stabilize and improve her overall condition. -[facility] heme/onc following. (5) Bacteremia: -MRSA and VRE. -ID following. -Cont IV Daptomycin as per ID (2) Mucoid impaction of bronchi: (3) Pulmonary embolism: (4) ALL (acute lymphoblastic leukemia): (5) Bacteremia: Subjective Patient seen and examined-no friends or family at bedside. Patient awake alert, appears fatigued, no acute distress,denies fever, chills, chest pain, increased shortness of breath, or GI symptoms. Patient does not remember prior visits by myself or DIAMOND Oswald, does not remember any details of her recent care including transfusions. Ruchi hayes's O2 has been able to be weaned from 6 L to 3. Patient did participate in PT on 06/23, had not been able to tolerate any PT since then-she was able to participate in evaluation on 06/28. Patient has required transfusion of 5 units since admission-she had 1 unit transfused on 06/15, 1 unit on 06/16, 2 units on 06/24, and 1 unit on 06/29. Hemoglobin today is 8.1. Attempted to discuss goals of care-patient wants to discuss when her daughter arrives later this evening, patient's daughter is plan to be here only over the weekend. Patient with poor insight to her current condition. Physical Exam Vital Signs (Past 24 Hours): Last Vital Signs Temp 36.8 C 06/30/18 11:28 Pulse 67 06/30/18 11:28 Resp 14 06/30/18 11:28 BP 134/60 06/30/18 11:28 Pulse Ox 95 06/30/18 11:28 Physical Exam: PE: Appears fatigued, no acute distress HEENT: EOMI, normal hearing Respiratory: Unlabored, diminished breath sounds at bases CV: Regular rate Abdomen: Soft, nontender, obese Neuro: Awake, alert. Psych: Flat affect Time Spent Attending Total time spent 25 minutes with greater than 50% of the time spent at bedside attempting to discuss patient's goals of care (1) Pulmonary embolism Pulmonary embolism type: saddle Chronicity: unspecified Acute cor pulmonale presence: without acute cor pulmonale Qualified Code(s): I26.92 - Saddle embolus of pulmonary artery without acute cor pulmonale
[2018-07-01 07:08] LABS: Hematocrit (blood only) 26.2 % (37-47); Hemoglobin 8.2 g/dL (12.0-16.0); Mean Corpuscular Hgb Conc 31.3 g/dL (32-36); Mean Corpuscular Volume 99.6 fL (80-100); Mean Platelet Volume 10.2 fL (7.4-10.4); Nucleated RBC # (auto) 0.12 K/uL (0-0); Nucleated RBC % (auto) 1.9 %; Platelet Count 201 K/uL (130-400); RDW Coefficient of Variation 22.6 % (11.5-14.5); Red Blood Count 2.63 M/uL (4.2-5.4); White Blood Count 6.28 K/uL (4.8-10.8)
[2018-07-01 07:21] LABS: INR 1.1 (0.9-1.1); Prothrombin Time 10.9 Seconds (9.0-12.0)
[2018-07-01 07:30] LABS: Creatinine Clr Calc Pharmacy 70.7 ml/min; Est GFR (African American) 87.3; Est GFR (Non-African American) 75.3; Potassium 4.1 mmol/L (3.5-5.1)
--- NOTE | 2018-07-01 08:31 | Hospitalist Progress Note ---
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 Vascular surgery said no need for IVC filter. Add Lasix 40 IV Daily for her edema. Hematology on case. Currently she is not bleeding, but is transfusion dependent. Hb stable last 2 days. 5th transfusion 06/29. Continue supplemental oxygen 3L NC for persistent hypoxia. Continue Lisinopril. Continue anticoagulation plan per hematology, Increase warfarin today. Ultimately transfer to [facility] on 07/03. Continue Sprycel for treatment of ALL. CODE STATUS changed to DO NOT RESUSCITATE Disposition-Med surg Subjective Feeling better today, eating, Hb stable last 2 days ROS-No Headache, No Visual Changes, No Nausea, No Vomiting, No Fever, No Chills, No Neck Pain or Stiffness, No Chest Pain, No Palpitations, No SOB, No LINARES, No Cough, No Sputum, No Wheezing, No Abdominal Pain, No Diarrhea, No Hematemesis, No Hemoptysis, No Unexpected Weight Loss, No Flank pain, No Melena, No Hematochezia, No Frequency, No Urgency, No Burning, No Hematuria, No Rashes, No Diaphoresis. Appetite is better, wants to walk, weak Physical Exam Gen-AAO x 3, NAD, Afebrile Head-NCAT, EOMI, PERRLA, Anicteric Sclera, No Posterior Pharyngeal Erythema Neck-Supple, No JVD, No Thyromegaly, No Masses, No LAD, No Bruits Lungs-Clear to Auscultation Bilaterally, No Rales, No Rhonchi, No Wheezing, No Crepitus Chest-No S4, +S1, +S2, No S3, No Murmurs, No Rubs, No Gallops, No Ectopy Abdomen-Soft, Bowel Sounds Present, Non Tender, Non Distended, No Hepatomegaly, No Splenomegaly, No Palpable Masses, No Rebound, No Rigidity, No Guarding Musculoskeletal-Full Range of Motion Bilaterally, No CVAT Extremities-No Cyanosis, No Clubbing, 2+ Edema Bilaterally Nuero-Cranial Nerves II-XII grossly intact, Motor WNL, DTRs WNL, Strength WNL, Non Focal Psych-Normal Mood Physical Exam Vital Signs (Past 24 Hours): Last Vital Signs Temp 36.8 C 07/01/18 07:17 Pulse 75 07/01/18 07:17 Resp 17 07/01/18 07:17 BP 126/50 L 07/01/18 07:17 Pulse Ox 92 07/01/18 07:17 Results & Data Laboratory Results Current Diagnoses Sepsis due to Methicillin resistant Staphylococcus aureus (06/12/18) Other specified sepsis (06/12/18) Zoster without complications (06/12/18) Acute lymphoblastic leukemia not having achieved remission (06/12/18) Anemia, unspecified (06/12/18) Thrombocytopenia, unspecified (06/12/18) Type 2 diabetes mellitus without complications (06/12/18) Vitamin D deficiency, unspecified (06/12/18) Hyperlipidemia, unspecified (06/12/18) Other disorders of phosphorus metabolism (06/12/18) Hypocalcemia (06/12/18) Hypokalemia (06/12/18) Idiopathic sleep related nonobstructive alveolar hypoventilation (06/12/18) Essential (primary) hypertension (06/12/18) Saddle embolus of pulmonary artery without acute cor pulmonale (06/12/18) Chronic obstructive pulmonary disease, unspecified (06/12/18) Acute respiratory failure with hypoxia (06/12/18) Other diseases of bronchus, not elsewhere classified (06/12/18) Gastro-esophageal reflux disease without esophagitis (06/12/18) Cellulitis of unspecified part of limb (06/12/18) Chronic kidney disease, stage 3 (moderate) (06/12/18) Secondary hyperparathyroidism of renal origin (06/12/18) Hypoxemia (06/12/18) Diarrhea, unspecified (06/12/18) Localized edema (06/12/18) Abnormal levels of other serum enzymes (06/12/18) Bacteremia (06/12/18) Unspecified transfusion reaction, initial encounter (06/12/18) Encounter for administrative examinations, unspecified (06/12/18) Other specified counseling (06/12/18) Allergies No Known Allergies Allergy (Verified 06/12/18 17:53) Height/Weight/Isolation Height 5 ft 6 in Weight 82.5 kg Isolation Type Contact Precautions CBC 06/12/18 06/12/18 06/12/18 17:55 17:55 17:55 WBC 7.82 RBC 2.94 L Hgb 9.0 L Hct 27.6 L MCV 93.9 MCH 30.6 MCHC 32.6 RDW Std Deviation 52.8 H RDW Coeff of Yariel 18.8 H Plt Count 71 L MPV 9.6 Immature Gran % (Auto) 0.9 Neut % (Auto) 89.6 Lymph % (Auto) 4.1 Upton % (Auto) 5.4 Eos % (Auto) 0.0 Baso % (Auto) 0.0 Immature Gran # (Auto) 0.07 H Neut # (Auto) 7.01 H Lymph # (Auto) 0.32 L Upton # (Auto) 0.42 Eos # (Auto) 0.00 Baso # (Auto) 0.00 Absolute Nucleated RBC 0.18 H Nucleated RBC % (auto) 2.2 Toxic Granulation Toxic Vacuolation Dohle Bodies Platelet Estimate Giant Platelets Polychromasia 1+ Poikilocytosis Anisocytosis Spherocytes 1+ PT INR APTT PTT Ratio ABG pH ABG pCO2 ABG pO2 ABG HCO3 ABG O2 Saturation ABG Base Excess Kaleb Test Barometric Pressure Oxygen Given Sodium 139 Potassium 3.4 L Chloride 101 Carbon Dioxide 28 Anion Gap 10.0 BUN 29 H Creatinine 1.38 H Est Cr Clr Drug Dosing 44.5 Est GFR ( Amer) 44.5 Est GFR (Non-Af Amer) 38.4 BUN/Creatinine Ratio 21.2 H Glucose 315 H POC Glucose Lactate Calcium 5.7 L* Ionized Calcium Phosphorus 3.9 Magnesium 2.1 Total Bilirubin 0.6 Direct Bilirubin AST 104 H ALT 145 H Alkaline Phosphatase 137 H Total Creatine Kinase Troponin I 0.130 H* NT-Pro-B Natriuret Pep Total Protein 4.7 L Albumin 1.9 L Globulin 2.8 Albumin/Globulin Ratio 0.7 L Prealbumin Lipase 25-OH Vitamin D Total Beta-Hydroxybutyric Acd 12.01 H Procalcitonin PTH Intact Urine Color Urine Appearance Urine pH Ur Specific Philipp Urine Protein Urine Glucose (UA) Urine Ketones Urine Blood Urine Nitrite Urine Bilirubin Urine Urobilinogen Ur Leukocyte Esterase Urine WBC (Auto) Urine RBC (Auto) U Hyaline Cast (Auto) U Epithel Cells (Auto) Urine Bacteria (Auto) Ur Renal Epithelial Cell Granular Casts Urine Yeast Nasal Screen MRSA (PCR) Varicella-Zoster Source VZV DNA (PCR) Bld Cult Staph aureus PCR Blood Culture MRSA PCR Blood Type Antibody Screen Crossmatch Transfusion React Date Transfusion React Time Tx React Symptoms Reaction Clerical Check Lab Clerical Err Check React Component Return Volume Returned Pre-Trans Blood Type Pre-Trans Vis Hemolysis Pre-Trans VEGA Pre-Trans VEGA IgG Pre-Trans VEGA Poly Pre-Trans VEGA C3b, C3d Post-Trans Blood Type Post-Tx Visible Hemolys Post-Trans VEGA Post-Trans VEGA IgG Post-Trans VEGA Poly Post-Trans VEGA C3b, C3d Post-Trans Ur Hemoglobin Reaction Path Interpret Transfusion Serv Com 06/12/18 06/12/18 06/12/18 18:15 18:15 21:18 WBC RBC Hgb Hct MCV MCH MCHC RDW Std Deviation RDW Coeff of Yariel Plt Count MPV Immature Gran % (Auto) Neut % (Auto) Lymph % (Auto) Upton % (Auto) Eos % (Auto) Baso % (Auto) Immature Gran # (Auto) Neut # (Auto) Lymph # (Auto) Upton # (Auto) Eos # (Auto) Baso # (Auto) Absolute Nucleated RBC Nucleated RBC % (auto) Toxic Granulation Toxic Vacuolation Dohle Bodies Platelet Estimate Giant Platelets Polychromasia Poikilocytosis Anisocytosis Spherocytes PT INR APTT PTT Ratio ABG pH ABG pCO2 ABG pO2 ABG HCO3 ABG O2 Saturation ABG Base Excess Kaleb Test Barometric Pressure Oxygen Given Sodium Potassium Chloride Carbon Dioxide Anion Gap BUN Creatinine Est Cr Clr Drug Dosing Est GFR ( Amer) Est GFR (Non-Af Amer) BUN/Creatinine Ratio Glucose POC Glucose 337 H Lactate 1.3 Calcium Ionized Calcium Phosphorus Magnesium Total Bilirubin Direct Bilirubin AST ALT Alkaline Phosphatase Total Creatine Kinase Troponin I NT-Pro-B Natriuret Pep Total Protein Albumin Globulin Albumin/Globulin Ratio Prealbumin Lipase 25-OH Vitamin D Total Beta-Hydroxybutyric Acd Procalcitonin PTH Intact Urine Color Urine Appearance Urine pH Ur Specific Philipp Urine Protein Urine Glucose (UA) Urine Ketones Urine Blood Urine Nitrite Urine Bilirubin Urine Urobilinogen Ur Leukocyte Esterase Urine WBC (Auto) Urine RBC (Auto) U Hyaline Cast (Auto) U Epithel Cells (Auto) Urine Bacteria (Auto) Ur Renal Epithelial Cell Granular Casts Urine Yeast Nasal Screen MRSA (PCR) Varicella-Zoster Source VZV DNA (PCR) Bld Cult Staph aureus PCR Cancelled Blood Culture MRSA PCR Cancelled Blood Type Antibody Screen Crossmatch Transfusion React Date Transfusion React Time Tx React Symptoms Reaction Clerical Check Lab Clerical Err Check React Component Return Volume Returned Pre-Trans Blood Type Pre-Trans Vis Hemolysis Pre-Trans VEGA Pre-Trans VEGA IgG Pre-Trans VEGA Poly Pre-Trans VEGA C3b, C3d Post-Trans Blood Type Post-Tx Visible Hemolys Post-Trans VEGA Post-Trans VEGA IgG Post-Trans VEGA Poly Post-Trans VEGA C3b, C3d Post-Trans Ur Hemoglobin Reaction Path Interpret Transfusion Serv Com 06/12/18 06/13/18 06/13/18 23:38 00:30 07:03 WBC 4.43 L RBC 2.55 L Hgb 7.7 L Hct 24.3 L MCV 95.3 MCH 30.2 MCHC 31.7 L RDW Std Deviation 54.7 H RDW Coeff of Yariel 19.1 H Plt Count 68 L MPV 9.2 Immature Gran % (Auto) 0.7 Neut % (Auto) 92.3 Lymph % (Auto) 4.5 Upton % (Auto) 2.5 Eos % (Auto) 0.0 Baso % (Auto) 0.0 Immature Gran # (Auto) 0.03 H Neut # (Auto) 4.09 Lymph # (Auto) 0.20 L Upton # (Auto) 0.11 Eos # (Auto) 0.00 Baso # (Auto) 0.00 Absolute Nucleated RBC 0.23 H Nucleated RBC % (auto) 5.2 Toxic Granulation 3+ Toxic Vacuolation 1+ Dohle Bodies Platelet Estimate Giant Platelets Polychromasia Poikilocytosis Present Anisocytosis Spherocytes Occasional PT INR APTT PTT Ratio ABG pH ABG pCO2 ABG pO2 ABG HCO3 ABG O2 Saturation ABG Base Excess Kaleb Test Barometric Pressure Oxygen Given Sodium Potassium Chloride Carbon Dioxide Anion Gap BUN Creatinine Est Cr Clr Drug Dosing Est GFR ( Amer) Est GFR (Non-Af Amer) BUN/Creatinine Ratio Glucose POC Glucose Lactate Calcium Ionized Calcium Phosphorus Magnesium Total Bilirubin Direct Bilirubin AST ALT Alkaline Phosphatase Total Creatine Kinase Troponin I 0.140 H* NT-Pro-B Natriuret Pep Total Protein Albumin Globulin Albumin/Globulin Ratio Prealbumin Lipase 25-OH Vitamin D Total Beta-Hydroxybutyric Acd Procalcitonin PTH Intact Urine Color Dark Yellow Urine Appearance Turbid H Urine pH 5.5 Ur Specific Philipp 1.023 Urine Protein 3+ H Urine Glucose (UA) 1+ H Urine Ketones 1+ H Urine Blood 3+ H Urine Nitrite Negative Urine Bilirubin Negative Urine Urobilinogen Negative Ur Leukocyte Esterase Negative Urine WBC (Auto) >30 H Urine RBC (Auto) 10-30 H U Hyaline Cast (Auto) 5-10 H U Epithel Cells (Auto) >30 H Urine Bacteria (Auto) Negative Ur Renal Epithelial Cell Not Reportable Granular Casts 5-10 H Urine Yeast Not Reportable Nasal Screen MRSA (PCR) Varicella-Zoster Source VZV DNA (PCR) Bld Cult Staph aureus PCR Blood Culture MRSA PCR Blood Type Antibody Screen Crossmatch Transfusion React Date Transfusion React Time Tx React Symptoms Reaction Clerical Check Lab Clerical Err Check React Component Return Volume Returned Pre-Trans Blood Type Pre-Trans Vis Hemolysis Pre-Trans VEGA Pre-Trans VEGA IgG Pre-Trans VEGA Poly Pre-Trans VEGA C3b, C3d Post-Trans Blood Type Post-Tx Visible Hemolys Post-Trans VEGA Post-Trans VEGA IgG Post-Trans VEGA Poly Post-Trans VEGA C3b, C3d Post-Trans Ur Hemoglobin Reaction Path Interpret Transfusion Serv Com 06/13/18 06/13/18 06/13/18 07:03 07:22 11:29 WBC RBC Hgb Hct MCV MCH MCHC RDW Std Deviation RDW Coeff of Yariel Plt Count MPV Immature Gran % (Auto) Neut % (Auto) Lymph % (Auto) Upton % (Auto) Eos % (Auto) Baso % (Auto) Immature Gran # (Auto) Neut # (Auto) Lymph # (Auto) Upton # (Auto) Eos # (Auto) Baso # (Auto) Absolute Nucleated RBC Nucleated RBC % (auto) Toxic Granulation Toxic Vacuolation Dohle Bodies Platelet Estimate Giant Platelets Polychromasia Poikilocytosis Anisocytosis Spherocytes PT INR APTT PTT Ratio ABG pH ABG pCO2 ABG pO2 ABG HCO3 ABG O2 Saturation ABG Base Excess Kaleb Test Barometric Pressure Oxygen Given Sodium 142 Potassium 3.5 Chloride 106 Carbon Dioxide 29 Anion Gap 7.0 BUN 27 H Creatinine 1.41 H Est Cr Clr Drug Dosing 43.6 Est GFR ( Amer) 43.3 Est GFR (Non-Af Amer) 37.4 BUN/Creatinine Ratio 19.4 Glucose 219 H POC Glucose 239 H 233 H Lactate Calcium 5.8 L* Ionized Calcium Phosphorus Magnesium Total Bilirubin Direct Bilirubin AST ALT Alkaline Phosphatase Total Creatine Kinase Troponin I 0.150 H* NT-Pro-B Natriuret Pep Total Protein Albumin Globulin Albumin/Globulin Ratio Prealbumin Lipase 25-OH Vitamin D Total Beta-Hydroxybutyric Acd Procalcitonin PTH Intact Urine Color Urine Appearance Urine pH Ur Specific Philipp Urine Protein Urine Glucose (UA) Urine Ketones Urine Blood Urine Nitrite Urine Bilirubin Urine Urobilinogen Ur Leukocyte Esterase Urine WBC (Auto) Urine RBC (Auto) U Hyaline Cast (Auto) U Epithel Cells (Auto) Urine Bacteria (Auto) Ur Renal Epithelial Cell Granular Casts Urine Yeast Nasal Screen MRSA (PCR) Varicella-Zoster Source VZV DNA (PCR) Bld Cult Staph aureus PCR Blood Culture MRSA PCR Blood Type Antibody Screen Crossmatch Transfusion React Date Transfusion React Time Tx React Symptoms Reaction Clerical Check Lab Clerical Err Check React Component Return Volume Returned Pre-Trans Blood Type Pre-Trans Vis Hemolysis Pre-Trans VEGA Pre-Trans VEGA IgG Pre-Trans VEGA Poly Pre-Trans VEGA C3b, C3d Post-Trans Blood Type Post-Tx Visible Hemolys Post-Trans VEGA Post-Trans VEGA IgG Post-Trans VEGA Poly Post-Trans VEGA C3b, C3d Post-Trans Ur Hemoglobin Reaction Path Interpret Transfusion Serv Com 06/13/18 06/13/18 06/14/18 16:20 20:33 06:54 WBC 5.41 RBC 2.38 L Hgb 7.3 L Hct 22.8 L MCV 95.8 MCH 30.7 MCHC 32.0 RDW Std Deviation 56.6 H RDW Coeff of Yariel 19.8 H Plt Count 86 L MPV 10.9 H Immature Gran % (Auto) Neut % (Auto) Lymph % (Auto) Upton % (Auto) Eos % (Auto) Baso % (Auto) Immature Gran # (Auto) Neut # (Auto) Lymph # (Auto) Upton # (Auto) Eos # (Auto) Baso # (Auto) Absolute Nucleated RBC 0.19 H Nucleated RBC % (auto) 3.5 Toxic Granulation Toxic Vacuolation Dohle Bodies Platelet Estimate Normal Giant Platelets Polychromasia Poikilocytosis Anisocytosis Spherocytes PT INR APTT PTT Ratio ABG pH ABG pCO2 ABG pO2 ABG HCO3 ABG O2 Saturation ABG Base Excess Kaleb Test Barometric Pressure Oxygen Given Sodium Potassium Chloride Carbon Dioxide Anion Gap BUN Creatinine Est Cr Clr Drug Dosing Est GFR ( Amer) Est GFR (Non-Af Amer) BUN/Creatinine Ratio Glucose POC Glucose 212 H 190 H Lactate Calcium Ionized Calcium Phosphorus Magnesium Total Bilirubin Direct Bilirubin AST ALT Alkaline Phosphatase Total Creatine Kinase Troponin I NT-Pro-B Natriuret Pep Total Protein Albumin Globulin Albumin/Globulin Ratio Prealbumin Lipase 25-OH Vitamin D Total Beta-Hydroxybutyric Acd Procalcitonin PTH Intact Urine Color Urine Appearance Urine pH Ur Specific Philipp Urine Protein Urine Glucose (UA) Urine Ketones Urine Blood Urine Nitrite Urine Bilirubin Urine Urobilinogen Ur Leukocyte Esterase Urine WBC (Auto) Urine RBC (Auto) U Hyaline Cast (Auto) U Epithel Cells (Auto) Urine Bacteria (Auto) Ur Renal Epithelial Cell Granular Casts Urine Yeast Nasal Screen MRSA (PCR) Varicella-Zoster Source VZV DNA (PCR) Bld Cult Staph aureus PCR Blood Culture MRSA PCR Blood Type Antibody Screen Crossmatch Transfusion React Date Transfusion React Time Tx React Symptoms Reaction Clerical Check Lab Clerical Err Check React Component Return Volume Returned Pre-Trans Blood Type Pre-Trans Vis Hemolysis Pre-Trans VEGA Pre-Trans VEGA IgG Pre-Trans VEGA Poly Pre-Trans VEGA C3b, C3d Post-Trans Blood Type Post-Tx Visible Hemolys Post-Trans VEGA Post-Trans VEGA IgG Post-Trans VEGA Poly Post-Trans VEGA C3b, C3d Post-Trans Ur Hemoglobin Reaction Path Interpret Transfusion Serv Com 06/14/18 06/14/18 06/14/18 06:54 06:54 07:08 WBC RBC Hgb Hct MCV MCH MCHC RDW Std Deviation RDW Coeff of Yariel Plt Count MPV Immature Gran % (Auto) Neut % (Auto) Lymph % (Auto) Upton % (Auto) Eos % (Auto) Baso % (Auto) Immature Gran # (Auto) Neut # (Auto) Lymph # (Auto) Upton # (Auto) Eos # (Auto) Baso # (Auto) Absolute Nucleated RBC Nucleated RBC % (auto) Toxic Granulation Toxic Vacuolation Dohle Bodies Platelet Estimate Giant Platelets Polychromasia Poikilocytosis Anisocytosis Spherocytes PT INR APTT PTT Ratio ABG pH ABG pCO2 ABG pO2 ABG HCO3 ABG O2 Saturation ABG Base Excess Kaleb Test Barometric Pressure Oxygen Given Sodium 141 Potassium 3.7 Chloride 105 Carbon Dioxide 29 Anion Gap 7.0 BUN 22 H Creatinine 1.15 Est Cr Clr Drug Dosing 53.7 Est GFR ( Amer) 55.4 Est GFR (Non-Af Amer) 47.8 BUN/Creatinine Ratio 18.7 Glucose 202 H POC Glucose 204 H Lactate Calcium 6.2 L Ionized Calcium Phosphorus Magnesium Total Bilirubin Direct Bilirubin AST ALT Alkaline Phosphatase Total Creatine Kinase Troponin I NT-Pro-B Natriuret Pep Total Protein Albumin Globulin Albumin/Globulin Ratio Prealbumin Lipase 25-OH Vitamin D Total Beta-Hydroxybutyric Acd Procalcitonin 0.35 PTH Intact Urine Color Urine Appearance Urine pH Ur Specific Philipp Urine Protein Urine Glucose (UA) Urine Ketones Urine Blood Urine Nitrite Urine Bilirubin Urine Urobilinogen Ur Leukocyte Esterase Urine WBC (Auto) Urine RBC (Auto) U Hyaline Cast (Auto) U Epithel Cells (Auto) Urine Bacteria (Auto) Ur Renal Epithelial Cell Granular Casts Urine Yeast Nasal Screen MRSA (PCR) Varicella-Zoster Source VZV DNA (PCR) Bld Cult Staph aureus PCR Blood Culture MRSA PCR Blood Type Antibody Screen Crossmatch Transfusion React Date Transfusion React Time Tx React Symptoms Reaction Clerical Check Lab Clerical Err Check React Component Return Volume Returned Pre-Trans Blood Type Pre-Trans Vis Hemolysis Pre-Trans VEGA Pre-Trans VEGA IgG Pre-Trans VEGA Poly Pre-Trans VEGA C3b, C3d Post-Trans Blood Type Post-Tx Visible Hemolys Post-Trans VEGA Post-Trans VEGA IgG Post-Trans VEGA Poly Post-Trans VEGA C3b, C3d Post-Trans Ur Hemoglobin Reaction Path Interpret Transfusion Serv Com 06/14/18 06/14/18 06/14/18 11:37 14:10 16:33 WBC RBC Hgb Hct MCV MCH MCHC RDW Std Deviation RDW Coeff of Yariel Plt Count MPV Immature Gran % (Auto) Neut % (Auto) Lymph % (Auto) Upton % (Auto) Eos % (Auto) Baso % (Auto) Immature Gran # (Auto) Neut # (Auto) Lymph # (Auto) Upton # (Auto) Eos # (Auto) Baso # (Auto) Absolute Nucleated RBC Nucleated RBC % (auto) Toxic Granulation Toxic Vacuolation Dohle Bodies Platelet Estimate Giant Platelets Polychromasia Poikilocytosis Anisocytosis Spherocytes PT INR APTT PTT Ratio ABG pH ABG pCO2 ABG pO2 ABG HCO3 ABG O2 Saturation ABG Base Excess Kaleb Test Barometric Pressure Oxygen Given Sodium Potassium Chloride Carbon Dioxide Anion Gap BUN Creatinine Est Cr Clr Drug Dosing Est GFR ( Amer) Est GFR (Non-Af Amer) BUN/Creatinine Ratio Glucose POC Glucose 233 H 247 H Lactate Calcium Ionized Calcium Phosphorus Magnesium Total Bilirubin Direct Bilirubin AST ALT Alkaline Phosphatase Total Creatine Kinase Troponin I NT-Pro-B Natriuret Pep Total Protein Albumin Globulin Albumin/Globulin Ratio Prealbumin Lipase 25-OH Vitamin D Total Beta-Hydroxybutyric Acd Procalcitonin PTH Intact Urine Color Urine Appearance Urine pH Ur Specific Philipp Urine Protein Urine Glucose (UA) Urine Ketones Urine Blood Urine Nitrite Urine Bilirubin Urine Urobilinogen Ur Leukocyte Esterase Urine WBC (Auto) Urine RBC (Auto) U Hyaline Cast (Auto) U Epithel Cells (Auto) Urine Bacteria (Auto) Ur Renal Epithelial Cell Granular Casts Urine Yeast Nasal Screen MRSA (PCR) Varicella-Zoster Source see note VZV DNA (PCR) Not Detected Bld Cult Staph aureus PCR Blood Culture MRSA PCR Blood Type Antibody Screen Crossmatch Transfusion React Date Transfusion React Time Tx React Symptoms Reaction Clerical Check Lab Clerical Err Check React Component Return Volume Returned Pre-Trans Blood Type Pre-Trans Vis Hemolysis Pre-Trans VEGA Pre-Trans VEGA IgG Pre-Trans VEGA Poly Pre-Trans VEGA C3b, C3d Post-Trans Blood Type Post-Tx Visible Hemolys Post-Trans VEGA Post-Trans VEGA IgG Post-Trans VEGA Poly Post-Trans VEGA C3b, C3d Post-Trans Ur Hemoglobin Reaction Path Interpret Transfusion Serv Com 06/14/18 06/15/18 06/15/18 20:32 05:31 05:31 WBC 6.41 RBC 2.25 L Hgb 6.8 L* Hct 21.6 L MCV 96.0 MCH 30.2 MCHC 31.5 L RDW Std Deviation 57.6 H RDW Coeff of Yariel 20.0 H Plt Count 107 L MPV 10.4 Immature Gran % (Auto) 1.1 Neut % (Auto) 92.3 Lymph % (Auto) 2.2 Upton % (Auto) 4.2 Eos % (Auto) 0.0 Baso % (Auto) 0.2 Immature Gran # (Auto) 0.07 H Neut # (Auto) 5.92 Lymph # (Auto) 0.14 L Upton # (Auto) 0.27 Eos # (Auto) 0.00 Baso # (Auto) 0.01 Absolute Nucleated RBC 0.32 H Nucleated RBC % (auto) 5.1 Toxic Granulation 1+ Toxic Vacuolation Dohle Bodies 1+ Platelet Estimate Giant Platelets 1+ Polychromasia Poikilocytosis Anisocytosis Present Spherocytes 2+ PT INR APTT PTT Ratio ABG pH ABG pCO2 ABG pO2 ABG HCO3 ABG O2 Saturation ABG Base Excess Kaleb Test Barometric Pressure Oxygen Given Sodium 142 Potassium 3.2 L Chloride 106 Carbon Dioxide 29 Anion Gap 7.0 BUN 15 Creatinine 0.93 Est Cr Clr Drug Dosing 65.7 Est GFR ( Amer) 71.7 Est GFR (Non-Af Amer) 61.8 BUN/Creatinine Ratio 16.2 Glucose 113 H POC Glucose 158 H Lactate Calcium 6.3 L Ionized Calcium Phosphorus 2.2 L Magnesium 1.9 Total Bilirubin Direct Bilirubin AST ALT Alkaline Phosphatase Total Creatine Kinase 1351 H Troponin I NT-Pro-B Natriuret Pep Total Protein Albumin Globulin Albumin/Globulin Ratio Prealbumin Lipase 25-OH Vitamin D Total Beta-Hydroxybutyric Acd Procalcitonin PTH Intact Urine Color Urine Appearance Urine pH Ur Specific Philipp Urine Protein Urine Glucose (UA) Urine Ketones Urine Blood Urine Nitrite Urine Bilirubin Urine Urobilinogen Ur Leukocyte Esterase Urine WBC (Auto) Urine RBC (Auto) U Hyaline Cast (Auto) U Epithel Cells (Auto) Urine Bacteria (Auto) Ur Renal Epithelial Cell Granular Casts Urine Yeast Nasal Screen MRSA (PCR) Varicella-Zoster Source VZV DNA (PCR) Bld Cult Staph aureus PCR Blood Culture MRSA PCR Blood Type Antibody Screen Crossmatch Transfusion React Date Transfusion React Time Tx React Symptoms Reaction Clerical Check Lab Clerical Err Check React Component Return Volume Returned Pre-Trans Blood Type Pre-Trans Vis Hemolysis Pre-Trans VEGA Pre-Trans VEGA IgG Pre-Trans VEGA Poly Pre-Trans VEGA C3b, C3d Post-Trans Blood Type Post-Tx Visible Hemolys Post-Trans VEGA Post-Trans VEGA IgG Post-Trans VEGA Poly Post-Trans VEGA C3b, C3d Post-Trans Ur Hemoglobin Reaction Path Interpret Transfusion Serv Com 06/15/18 06/15/18 06/15/18 05:31 05:31 05:31 WBC RBC Hgb Hct MCV MCH MCHC RDW Std Deviation RDW Coeff of Yariel Plt Count MPV Immature Gran % (Auto) Neut % (Auto) Lymph % (Auto) Upton % (Auto) Eos % (Auto) Baso % (Auto) Immature Gran # (Auto) Neut # (Auto) Lymph # (Auto) Upton # (Auto) Eos # (Auto) Baso # (Auto) Absolute Nucleated RBC Nucleated RBC % (auto) Toxic Granulation Toxic Vacuolation Dohle Bodies Platelet Estimate Giant Platelets Polychromasia Poikilocytosis Anisocytosis Spherocytes PT INR APTT PTT Ratio ABG pH ABG pCO2 ABG pO2 ABG HCO3 ABG O2 Saturation ABG Base Excess Kaleb Test Barometric Pressure Oxygen Given Sodium Potassium Chloride Carbon Dioxide Anion Gap BUN Creatinine Est Cr Clr Drug Dosing Est GFR ( Amer) Est GFR (Non-Af Amer) BUN/Creatinine Ratio Glucose POC Glucose Lactate Calcium Ionized Calcium 0.91 L Phosphorus Magnesium Total Bilirubin Direct Bilirubin AST ALT Alkaline Phosphatase Total Creatine Kinase Troponin I NT-Pro-B Natriuret Pep Total Protein Albumin Globulin Albumin/Globulin Ratio Prealbumin Lipase 25-OH Vitamin D Total 10.7 L Beta-Hydroxybutyric Acd Procalcitonin PTH Intact 636.7 H Urine Color Urine Appearance Urine pH Ur Specific Philipp Urine Protein Urine Glucose (UA) Urine Ketones Urine Blood Urine Nitrite Urine Bilirubin Urine Urobilinogen Ur Leukocyte Esterase Urine WBC (Auto) Urine RBC (Auto) U Hyaline Cast (Auto) U Epithel Cells (Auto) Urine Bacteria (Auto) Ur Renal Epithelial Cell Granular Casts Urine Yeast Nasal Screen MRSA (PCR) Varicella-Zoster Source VZV DNA (PCR) Bld Cult Staph aureus PCR Blood Culture MRSA PCR Blood Type Antibody Screen Crossmatch Transfusion React Date Transfusion React Time Tx React Symptoms Reaction Clerical Check Lab Clerical Err Check React Component Return Volume Returned Pre-Trans Blood Type Pre-Trans Vis Hemolysis Pre-Trans VEGA Pre-Trans VEGA IgG Pre-Trans VEGA Poly Pre-Trans VEGA C3b, C3d Post-Trans Blood Type Post-Tx Visible Hemolys Post-Trans VEGA Post-Trans VEGA IgG Post-Trans VEGA Poly Post-Trans VEGA C3b, C3d Post-Trans Ur Hemoglobin Reaction Path Interpret Transfusion Serv Com 06/15/18 06/15/18 06/15/18 07:20 11:17 16:35 WBC RBC Hgb Hct MCV MCH MCHC RDW Std Deviation RDW Coeff of Yariel Plt Count MPV Immature Gran % (Auto) Neut % (Auto) Lymph % (Auto) Upton % (Auto) Eos % (Auto) Baso % (Auto) Immature Gran # (Auto) Neut # (Auto) Lymph # (Auto) Upton # (Auto) Eos # (Auto) Baso # (Auto) Absolute Nucleated RBC Nucleated RBC % (auto) Toxic Granulation Toxic Vacuolation Dohle Bodies Platelet Estimate Giant Platelets Polychromasia Poikilocytosis Anisocytosis Spherocytes PT INR APTT PTT Ratio ABG pH ABG pCO2 ABG pO2 ABG HCO3 ABG O2 Saturation ABG Base Excess Kaleb Test Barometric Pressure Oxygen Given Sodium Potassium Chloride Carbon Dioxide Anion Gap BUN Creatinine Est Cr Clr Drug Dosing Est GFR ( Amer) Est GFR (Non-Af Amer) BUN/Creatinine Ratio Glucose POC Glucose 125 H 175 H 222 H Lactate Calcium Ionized Calcium Phosphorus Magnesium Total Bilirubin Direct Bilirubin AST ALT Alkaline Phosphatase Total Creatine Kinase Troponin I NT-Pro-B Natriuret Pep Total Protein Albumin Globulin Albumin/Globulin Ratio Prealbumin Lipase 25-OH Vitamin D Total Beta-Hydroxybutyric Acd Procalcitonin PTH Intact Urine Color Urine Appearance Urine pH Ur Specific Philipp Urine Protein Urine Glucose (UA) Urine Ketones Urine Blood Urine Nitrite Urine Bilirubin Urine Urobilinogen Ur Leukocyte Esterase Urine WBC (Auto) Urine RBC (Auto) U Hyaline Cast (Auto) U Epithel Cells (Auto) Urine Bacteria (Auto) Ur Renal Epithelial Cell Granular Casts Urine Yeast Nasal Screen MRSA (PCR) Varicella-Zoster Source VZV DNA (PCR) Bld Cult Staph aureus PCR Blood Culture MRSA PCR Blood Type Antibody Screen Crossmatch Transfusion React Date Transfusion React Time Tx React Symptoms Reaction Clerical Check Lab Clerical Err Check React Component Return Volume Returned Pre-Trans Blood Type Pre-Trans Vis Hemolysis Pre-Trans VEGA Pre-Trans VEGA IgG Pre-Trans VEGA Poly Pre-Trans VEGA C3b, C3d Post-Trans Blood Type Post-Tx Visible Hemolys Post-Trans VEGA Post-Trans VEGA IgG Post-Trans VEGA Poly Post-Trans VEGA C3b, C3d Post-Trans Ur Hemoglobin Reaction Path Interpret Transfusion Serv Com 06/15/18 06/15/18 06/16/18 16:44 20:19 07:05 WBC 6.33 RBC 3.11 L Hgb 9.5 L Hct 28.7 L MCV 92.3 MCH 30.5 MCHC 33.1 RDW Std Deviation 54.2 H RDW Coeff of Yariel 19.6 H Plt Count 114 L MPV 9.7 Immature Gran % (Auto) 4.1 Neut % (Auto) 82.8 Lymph % (Auto) 7.9 Upton % (Auto) 4.6 Eos % (Auto) 0.6 Baso % (Auto) 0.0 Immature Gran # (Auto) 0.26 H Neut # (Auto) 5.24 Lymph # (Auto) 0.50 L Upton # (Auto) 0.29 Eos # (Auto) 0.04 Baso # (Auto) 0.00 Absolute Nucleated RBC 0.29 H Nucleated RBC % (auto) 4.6 Toxic Granulation 1+ Toxic Vacuolation Dohle Bodies Platelet Estimate Giant Platelets Polychromasia Poikilocytosis Anisocytosis Present Spherocytes 1+ PT INR APTT PTT Ratio ABG pH ABG pCO2 ABG pO2 ABG HCO3 ABG O2 Saturation ABG Base Excess Kaleb Test Barometric Pressure Oxygen Given Sodium Potassium Chloride Carbon Dioxide Anion Gap BUN Creatinine Est Cr Clr Drug Dosing Est GFR ( Amer) Est GFR (Non-Af Amer) BUN/Creatinine Ratio Glucose POC Glucose 238 H Lactate Calcium Ionized Calcium Phosphorus Magnesium Total Bilirubin Direct Bilirubin AST ALT Alkaline Phosphatase Total Creatine Kinase Troponin I NT-Pro-B Natriuret Pep Total Protein Albumin Globulin Albumin/Globulin Ratio Prealbumin Lipase 25-OH Vitamin D Total Beta-Hydroxybutyric Acd Procalcitonin PTH Intact Urine Color Urine Appearance Urine pH Ur Specific Philipp Urine Protein Urine Glucose (UA) Urine Ketones Urine Blood Urine Nitrite Urine Bilirubin Urine Urobilinogen Ur Leukocyte Esterase Urine WBC (Auto) Urine RBC (Auto) U Hyaline Cast (Auto) U Epithel Cells (Auto) Urine Bacteria (Auto) Ur Renal Epithelial Cell Granular Casts Urine Yeast Nasal Screen MRSA (PCR) Varicella-Zoster Source VZV DNA (PCR) Bld Cult Staph aureus PCR Blood Culture MRSA PCR Blood Type A Positive Antibody Screen NEGATIVE Crossmatch See Detail Transfusion React Date Transfusion React Time Tx React Symptoms Reaction Clerical Check Lab Clerical Err Check React Component Return Volume Returned Pre-Trans Blood Type Pre-Trans Vis Hemolysis Pre-Trans VEGA Pre-Trans VEGA IgG Pre-Trans VEGA Poly Pre-Trans VEGA C3b, C3d Post-Trans Blood Type Post-Tx Visible Hemolys Post-Trans VEGA Post-Trans VEGA IgG Post-Trans VEGA Poly Post-Trans VEGA C3b, C3d Post-Trans Ur Hemoglobin Reaction Path Interpret Transfusion Serv Com 06/16/18 06/16/18 06/16/18 07:05 07:26 11:30 WBC RBC Hgb Hct MCV MCH MCHC RDW Std Deviation RDW Coeff of Yariel Plt Count MPV Immature Gran % (Auto) Neut % (Auto) Lymph % (Auto) Upton % (Auto) Eos % (Auto) Baso % (Auto) Immature Gran # (Auto) Neut # (Auto) Lymph # (Auto) Upton # (Auto) Eos # (Auto) Baso # (Auto) Absolute Nucleated RBC Nucleated RBC % (auto) Toxic Granulation Toxic Vacuolation Dohle Bodies Platelet Estimate Giant Platelets Polychromasia Poikilocytosis Anisocytosis Spherocytes PT INR APTT PTT Ratio ABG pH ABG pCO2 ABG pO2 ABG HCO3 ABG O2 Saturation ABG Base Excess Kaleb Test Barometric Pressure Oxygen Given Sodium 141 Potassium 4.2 D Chloride 108 H Carbon Dioxide 29 Anion Gap 4.0 BUN 15 Creatinine 0.93 Est Cr Clr Drug Dosing 65.7 Est GFR ( Amer) 71.7 Est GFR (Non-Af Amer) 61.8 BUN/Creatinine Ratio 15.6 Glucose 108 H POC Glucose 112 H 150 H Lactate Calcium 7.1 L Ionized Calcium Phosphorus 1.5 L* Magnesium Total Bilirubin Direct Bilirubin AST ALT Alkaline Phosphatase Total Creatine Kinase 957 H Troponin I NT-Pro-B Natriuret Pep Total Protein Albumin 2.0 L Globulin Albumin/Globulin Ratio Prealbumin Lipase 25-OH Vitamin D Total Beta-Hydroxybutyric Acd Procalcitonin PTH Intact Urine Color Urine Appearance Urine pH Ur Specific Philipp Urine Protein Urine Glucose (UA) Urine Ketones Urine Blood Urine Nitrite Urine Bilirubin Urine Urobilinogen Ur Leukocyte Esterase Urine WBC (Auto) Urine RBC (Auto) U Hyaline Cast (Auto) U Epithel Cells (Auto) Urine Bacteria (Auto) Ur Renal Epithelial Cell Granular Casts Urine Yeast Nasal Screen MRSA (PCR) Varicella-Zoster Source VZV DNA (PCR) Bld Cult Staph aureus PCR Blood Culture MRSA PCR Blood Type Antibody Screen Crossmatch Transfusion React Date Transfusion React Time Tx React Symptoms Reaction Clerical Check Lab Clerical Err Check React Component Return Volume Returned Pre-Trans Blood Type Pre-Trans Vis Hemolysis Pre-Trans VEGA Pre-Trans VEGA IgG Pre-Trans VEGA Poly Pre-Trans VEGA C3b, C3d Post-Trans Blood Type Post-Tx Visible Hemolys Post-Trans VEGA Post-Trans VEGA IgG Post-Trans VEGA Poly Post-Trans VEGA C3b, C3d Post-Trans Ur Hemoglobin Reaction Path Interpret Transfusion Serv Com 06/16/18 06/16/18 06/17/18 15:55 20:55 07:29 WBC RBC Hgb Hct MCV MCH MCHC RDW Std Deviation RDW Coeff of Yariel Plt Count MPV Immature Gran % (Auto) Neut % (Auto) Lymph % (Auto) Upton % (Auto) Eos % (Auto) Baso % (Auto) Immature Gran # (Auto) Neut # (Auto) Lymph # (Auto) Upton # (Auto) Eos # (Auto) Baso # (Auto) Absolute Nucleated RBC Nucleated RBC % (auto) Toxic Granulation Toxic Vacuolation Dohle Bodies Platelet Estimate Giant Platelets Polychromasia Poikilocytosis Anisocytosis Spherocytes PT INR APTT PTT Ratio ABG pH ABG pCO2 ABG pO2 ABG HCO3 ABG O2 Saturation ABG Base Excess Kaleb Test Barometric Pressure Oxygen Given Sodium Potassium Chloride Carbon Dioxide Anion Gap BUN Creatinine Est Cr Clr Drug Dosing Est GFR ( Amer) Est GFR (Non-Af Amer) BUN/Creatinine Ratio Glucose POC Glucose 146 H 163 H 88 Lactate Calcium Ionized Calcium Phosphorus Magnesium Total Bilirubin Direct Bilirubin AST ALT Alkaline Phosphatase Total Creatine Kinase Troponin I NT-Pro-B Natriuret Pep Total Protein Albumin Globulin Albumin/Globulin Ratio Prealbumin Lipase 25-OH Vitamin D Total Beta-Hydroxybutyric Acd Procalcitonin PTH Intact Urine Color Urine Appearance Urine pH Ur Specific Philipp Urine Protein Urine Glucose (UA) Urine Ketones Urine Blood Urine Nitrite Urine Bilirubin Urine Urobilinogen Ur Leukocyte Esterase Urine WBC (Auto) Urine RBC (Auto) U Hyaline Cast (Auto) U Epithel Cells (Auto) Urine Bacteria (Auto) Ur Renal Epithelial Cell Granular Casts Urine Yeast Nasal Screen MRSA (PCR) Varicella-Zoster Source VZV DNA (PCR) Bld Cult Staph aureus PCR Blood Culture MRSA PCR Blood Type Antibody Screen Crossmatch Transfusion React Date Transfusion React Time Tx React Symptoms Reaction Clerical Check Lab Clerical Err Check React Component Return Volume Returned Pre-Trans Blood Type Pre-Trans Vis Hemolysis Pre-Trans VEGA Pre-Trans VEGA IgG Pre-Trans VEGA Poly Pre-Trans VEGA C3b, C3d Post-Trans Blood Type Post-Tx Visible Hemolys Post-Trans VEGA Post-Trans VEGA IgG Post-Trans VEGA Poly Post-Trans VEGA C3b, C3d Post-Trans Ur Hemoglobin Reaction Path Interpret Transfusion Serv Com 06/17/18 06/17/18 06/17/18 09:18 09:18 11:32 WBC 7.06 RBC 3.28 L Hgb 9.9 L Hct 30.2 L MCV 92.1 MCH 30.2 MCHC 32.8 RDW Std Deviation 55.8 H RDW Coeff of Yariel 19.8 H Plt Count 132 MPV 9.9 Immature Gran % (Auto) 1.6 Neut % (Auto) 85.3 Lymph % (Auto) 6.7 Upton % (Auto) 5.9 Eos % (Auto) 0.4 Baso % (Auto) 0.1 Immature Gran # (Auto) 0.11 H Neut # (Auto) 6.02 Lymph # (Auto) 0.47 L Upton # (Auto) 0.42 Eos # (Auto) 0.03 Baso # (Auto) 0.01 Absolute Nucleated RBC 0.24 H Nucleated RBC % (auto) 3.4 Toxic Granulation Toxic Vacuolation Dohle Bodies Platelet Estimate Giant Platelets Polychromasia 1+ Poikilocytosis Anisocytosis Present Spherocytes Occasional PT INR APTT PTT Ratio ABG pH ABG pCO2 ABG pO2 ABG HCO3 ABG O2 Saturation ABG Base Excess Kaleb Test Barometric Pressure Oxygen Given Sodium 140 Potassium 3.7 Chloride 107 Carbon Dioxide 28 Anion Gap 5.0 BUN 12 Creatinine 0.86 Est Cr Clr Drug Dosing 69.8 Est GFR ( Amer) 78.8 Est GFR (Non-Af Amer) 68.0 BUN/Creatinine Ratio 14.6 Glucose 160 H POC Glucose 203 H Lactate Calcium 7.4 L Ionized Calcium Phosphorus 2.1 L Magnesium 1.8 Total Bilirubin 0.8 Direct Bilirubin AST 53 H ALT 170 H Alkaline Phosphatase 132 H Total Creatine Kinase 475 H Troponin I NT-Pro-B Natriuret Pep Total Protein 5.4 L Albumin 2.1 L Globulin 3.3 Albumin/Globulin Ratio 0.6 L Prealbumin Lipase 25-OH Vitamin D Total Beta-Hydroxybutyric Acd Procalcitonin PTH Intact Urine Color Urine Appearance Urine pH Ur Specific Philipp Urine Protein Urine Glucose (UA) Urine Ketones Urine Blood Urine Nitrite Urine Bilirubin Urine Urobilinogen Ur Leukocyte Esterase Urine WBC (Auto) Urine RBC (Auto) U Hyaline Cast (Auto) U Epithel Cells (Auto) Urine Bacteria (Auto) Ur Renal Epithelial Cell Granular Casts Urine Yeast Nasal Screen MRSA (PCR) Varicella-Zoster Source VZV DNA (PCR) Bld Cult Staph aureus PCR Blood Culture MRSA PCR Blood Type Antibody Screen Crossmatch Transfusion React Date Transfusion React Time Tx React Symptoms Reaction Clerical Check Lab Clerical Err Check React Component Return Volume Returned Pre-Trans Blood Type Pre-Trans Vis Hemolysis Pre-Trans VEGA Pre-Trans VEGA IgG Pre-Trans VEGA Poly Pre-Trans VEGA C3b, C3d Post-Trans Blood Type Post-Tx Visible Hemolys Post-Trans EVGA Post-Trans VEGA IgG Post-Trans VEGA Poly Post-Trans VEGA C3b, C3d Post-Trans Ur Hemoglobin Reaction Path Interpret Transfusion Serv Com 06/17/18 06/17/18 06/18/18 16:07 20:13 07:24 WBC RBC Hgb Hct MCV MCH MCHC RDW Std Deviation RDW Coeff of Yariel Plt Count MPV Immature Gran % (Auto) Neut % (Auto) Lymph % (Auto) Upton % (Auto) Eos % (Auto) Baso % (Auto) Immature Gran # (Auto) Neut # (Auto) Lymph # (Auto) Upton # (Auto) Eos # (Auto) Baso # (Auto) Absolute Nucleated RBC Nucleated RBC % (auto) Toxic Granulation Toxic Vacuolation Dohle Bodies Platelet Estimate Giant Platelets Polychromasia Poikilocytosis Anisocytosis Spherocytes PT INR APTT PTT Ratio ABG pH ABG pCO2 ABG pO2 ABG HCO3 ABG O2 Saturation ABG Base Excess Kaleb Test Barometric Pressure Oxygen Given Sodium 140 Potassium 3.5 Chloride 104 Carbon Dioxide 29 Anion Gap 7.0 BUN 18 Creatinine 0.83 Est Cr Clr Drug Dosing 71.4 Est GFR ( Amer) 82.2 Est GFR (Non-Af Amer) 70.9 BUN/Creatinine Ratio 21.0 H Glucose 123 H POC Glucose 189 H 179 H Lactate Calcium 8.0 L Ionized Calcium Phosphorus Magnesium Total Bilirubin Direct Bilirubin AST ALT Alkaline Phosphatase Total Creatine Kinase 219 H Troponin I NT-Pro-B Natriuret Pep Total Protein Albumin Globulin Albumin/Globulin Ratio Prealbumin Lipase 25-OH Vitamin D Total Beta-Hydroxybutyric Acd Procalcitonin PTH Intact Urine Color Urine Appearance Urine pH Ur Specific Philipp Urine Protein Urine Glucose (UA) Urine Ketones Urine Blood Urine Nitrite Urine Bilirubin Urine Urobilinogen Ur Leukocyte Esterase Urine WBC (Auto) Urine RBC (Auto) U Hyaline Cast (Auto) U Epithel Cells (Auto) Urine Bacteria (Auto) Ur Renal Epithelial Cell Granular Casts Urine Yeast Nasal Screen MRSA (PCR) Varicella-Zoster Source VZV DNA (PCR) Bld Cult Staph aureus PCR Blood Culture MRSA PCR Blood Type Antibody Screen Crossmatch Transfusion React Date Transfusion React Time Tx React Symptoms Reaction Clerical Check Lab Clerical Err Check React Component Return Volume Returned Pre-Trans Blood Type Pre-Trans Vis Hemolysis Pre-Trans VEGA Pre-Trans VEGA IgG Pre-Trans VEGA Poly Pre-Trans VEGA C3b, C3d Post-Trans Blood Type Post-Tx Visible Hemolys Post-Trans VEGA Post-Trans VEGA IgG Post-Trans VEGA Poly Post-Trans VEGA C3b, C3d Post-Trans Ur Hemoglobin Reaction Path Interpret Transfusion Serv Com 06/18/18 06/18/18 06/18/18 07:24 07:32 11:28 WBC 8.61 RBC 3.26 L Hgb 9.8 L Hct 30.1 L MCV 92.3 MCH 30.1 MCHC 32.6 RDW Std Deviation 56.1 H RDW Coeff of Yariel 19.4 H Plt Count 141 MPV 10.6 H Immature Gran % (Auto) Neut % (Auto) Lymph % (Auto) Upton % (Auto) Eos % (Auto) Baso % (Auto) Immature Gran # (Auto) Neut # (Auto) Lymph # (Auto) Upton # (Auto) Eos # (Auto) Baso # (Auto) Absolute Nucleated RBC 0.19 H Nucleated RBC % (auto) 2.2 Toxic Granulation Toxic Vacuolation Dohle Bodies Platelet Estimate Giant Platelets Polychromasia Poikilocytosis Anisocytosis Spherocytes PT INR APTT PTT Ratio ABG pH ABG pCO2 ABG pO2 ABG HCO3 ABG O2 Saturation ABG Base Excess Kaleb Test Barometric Pressure Oxygen Given Sodium Potassium Chloride Carbon Dioxide Anion Gap BUN Creatinine Est Cr Clr Drug Dosing Est GFR ( Amer) Est GFR (Non-Af Amer) BUN/Creatinine Ratio Glucose POC Glucose 131 H 206 H Lactate Calcium Ionized Calcium Phosphorus Magnesium Total Bilirubin Direct Bilirubin AST ALT Alkaline Phosphatase Total Creatine Kinase Troponin I NT-Pro-B Natriuret Pep Total Protein Albumin Globulin Albumin/Globulin Ratio Prealbumin Lipase 25-OH Vitamin D Total Beta-Hydroxybutyric Acd Procalcitonin PTH Intact Urine Color Urine Appearance Urine pH Ur Specific Philipp Urine Protein Urine Glucose (UA) Urine Ketones Urine Blood Urine Nitrite Urine Bilirubin Urine Urobilinogen Ur Leukocyte Esterase Urine WBC (Auto) Urine RBC (Auto) U Hyaline Cast (Auto) U Epithel Cells (Auto) Urine Bacteria (Auto) Ur Renal Epithelial Cell Granular Casts Urine Yeast Nasal Screen MRSA (PCR) Varicella-Zoster Source VZV DNA (PCR) Bld Cult Staph aureus PCR Blood Culture MRSA PCR Blood Type Antibody Screen Crossmatch Transfusion React Date Transfusion React Time Tx React Symptoms Reaction Clerical Check Lab Clerical Err Check React Component Return Volume Returned Pre-Trans Blood Type Pre-Trans Vis Hemolysis Pre-Trans VEGA Pre-Trans VEGA IgG Pre-Trans VEGA Poly Pre-Trans VEGA C3b, C3d Post-Trans Blood Type Post-Tx Visible Hemolys Post-Trans VEGA Post-Trans VEGA IgG Post-Trans VEGA Poly Post-Trans VEGA C3b, C3d Post-Trans Ur Hemoglobin Reaction Path Interpret Transfusion Serv Com 06/18/18 06/18/18 06/19/18 16:40 19:54 07:37 WBC RBC Hgb Hct MCV MCH MCHC RDW Std Deviation RDW Coeff of Yariel Plt Count MPV Immature Gran % (Auto) Neut % (Auto) Lymph % (Auto) Upton % (Auto) Eos % (Auto) Baso % (Auto) Immature Gran # (Auto) Neut # (Auto) Lymph # (Auto) Upton # (Auto) Eos # (Auto) Baso # (Auto) Absolute Nucleated RBC Nucleated RBC % (auto) Toxic Granulation Toxic Vacuolation Dohle Bodies Platelet Estimate Giant Platelets Polychromasia Poikilocytosis Anisocytosis Spherocytes PT INR APTT PTT Ratio ABG pH ABG pCO2 ABG pO2 ABG HCO3 ABG O2 Saturation ABG Base Excess Kaleb Test Barometric Pressure Oxygen Given Sodium Potassium Chloride Carbon Dioxide Anion Gap BUN Creatinine Est Cr Clr Drug Dosing Est GFR ( Amer) Est GFR (Non-Af Amer) BUN/Creatinine Ratio Glucose POC Glucose 214 H 211 H 112 H Lactate Calcium Ionized Calcium Phosphorus Magnesium Total Bilirubin Direct Bilirubin AST ALT Alkaline Phosphatase Total Creatine Kinase Troponin I NT-Pro-B Natriuret Pep Total Protein Albumin Globulin Albumin/Globulin Ratio Prealbumin Lipase 25-OH Vitamin D Total Beta-Hydroxybutyric Acd Procalcitonin PTH Intact Urine Color Urine Appearance Urine pH Ur Specific Philipp Urine Protein Urine Glucose (UA) Urine Ketones Urine Blood Urine Nitrite Urine Bilirubin Urine Urobilinogen Ur Leukocyte Esterase Urine WBC (Auto) Urine RBC (Auto) U Hyaline Cast (Auto) U Epithel Cells (Auto) Urine Bacteria (Auto) Ur Renal Epithelial Cell Granular Casts Urine Yeast Nasal Screen MRSA (PCR) Varicella-Zoster Source VZV DNA (PCR) Bld Cult Staph aureus PCR Blood Culture MRSA PCR Blood Type Antibody Screen Crossmatch Transfusion React Date Transfusion React Time Tx React Symptoms Reaction Clerical Check Lab Clerical Err Check React Component Return Volume Returned Pre-Trans Blood Type Pre-Trans Vis Hemolysis Pre-Trans VEGA Pre-Trans VEGA IgG Pre-Trans VEGA Poly Pre-Trans VEGA C3b, C3d Post-Trans Blood Type Post-Tx Visible Hemolys Post-Trans VEGA Post-Trans VEGA IgG Post-Trans VEGA Poly Post-Trans VEGA C3b, C3d Post-Trans Ur Hemoglobin Reaction Path Interpret Transfusion Serv Com 06/19/18 06/19/18 06/19/18 08:48 08:48 08:48 WBC 7.30 RBC 3.00 L Hgb 9.1 L Hct 28.1 L MCV 93.7 MCH 30.3 MCHC 32.4 RDW Std Deviation 56.4 H RDW Coeff of Yariel 19.5 H Plt Count 129 L MPV 9.6 Immature Gran % (Auto) Neut % (Auto) Lymph % (Auto) Upton % (Auto) Eos % (Auto) Baso % (Auto) Immature Gran # (Auto) Neut # (Auto) Lymph # (Auto) Upton # (Auto) Eos # (Auto) Baso # (Auto) Absolute Nucleated RBC 0.06 H Nucleated RBC % (auto) 0.9 Toxic Granulation Toxic Vacuolation Dohle Bodies Platelet Estimate Giant Platelets Polychromasia Poikilocytosis Anisocytosis Spherocytes PT INR APTT PTT Ratio ABG pH ABG pCO2 ABG pO2 ABG HCO3 ABG O2 Saturation ABG Base Excess Kaleb Test Barometric Pressure Oxygen Given Sodium 140 Potassium 3.6 Chloride 104 Carbon Dioxide 31 Anion Gap 5.0 BUN 21 H Creatinine 1.04 Est Cr Clr Drug Dosing 56.8 Est GFR ( Amer) 62.6 Est GFR (Non-Af Amer) 54.0 BUN/Creatinine Ratio 20.1 H Glucose 125 H POC Glucose Lactate Calcium 7.6 L Ionized Calcium Phosphorus Magnesium Total Bilirubin Direct Bilirubin AST ALT Alkaline Phosphatase Total Creatine Kinase 111 Troponin I NT-Pro-B Natriuret Pep Total Protein Albumin Globulin Albumin/Globulin Ratio Prealbumin Lipase 25-OH Vitamin D Total Beta-Hydroxybutyric Acd Procalcitonin PTH Intact Urine Color Urine Appearance Urine pH Ur Specific Philipp Urine Protein Urine Glucose (UA) Urine Ketones Urine Blood Urine Nitrite Urine Bilirubin Urine Urobilinogen Ur Leukocyte Esterase Urine WBC (Auto) Urine RBC (Auto) U Hyaline Cast (Auto) U Epithel Cells (Auto) Urine Bacteria (Auto) Ur Renal Epithelial Cell Granular Casts Urine Yeast Nasal Screen MRSA (PCR) Varicella-Zoster Source VZV DNA (PCR) Bld Cult Staph aureus PCR Blood Culture MRSA PCR Blood Type Antibody Screen Crossmatch Transfusion React Date Transfusion React Time Tx React Symptoms Reaction Clerical Check Lab Clerical Err Check React Component Return Volume Returned Pre-Trans Blood Type Pre-Trans Vis Hemolysis Pre-Trans VEGA Pre-Trans VEGA IgG Pre-Trans VEGA Poly Pre-Trans VEGA C3b, C3d Post-Trans Blood Type Post-Tx Visible Hemolys Post-Trans VEGA Post-Trans VEGA IgG Post-Trans VEGA Poly Post-Trans VEGA C3b, C3d Post-Trans Ur Hemoglobin Reaction Path Interpret Transfusion Serv Com 06/19/18 06/19/18 06/19/18 11:44 16:36 20:15 WBC RBC Hgb Hct MCV MCH MCHC RDW Std Deviation RDW Coeff of Yariel Plt Count MPV Immature Gran % (Auto) Neut % (Auto) Lymph % (Auto) Upton % (Auto) Eos % (Auto) Baso % (Auto) Immature Gran # (Auto) Neut # (Auto) Lymph # (Auto) Upton # (Auto) Eos # (Auto) Baso # (Auto) Absolute Nucleated RBC Nucleated RBC % (auto) Toxic Granulation Toxic Vacuolation Dohle Bodies Platelet Estimate Giant Platelets Polychromasia Poikilocytosis Anisocytosis Spherocytes PT INR APTT PTT Ratio ABG pH ABG pCO2 ABG pO2 ABG HCO3 ABG O2 Saturation ABG Base Excess Kaleb Test Barometric Pressure Oxygen Given Sodium Potassium Chloride Carbon Dioxide Anion Gap BUN Creatinine Est Cr Clr Drug Dosing Est GFR ( Amer) Est GFR (Non-Af Amer) BUN/Creatinine Ratio Glucose POC Glucose 170 H 131 H 118 H Lactate Calcium Ionized Calcium Phosphorus Magnesium Total Bilirubin Direct Bilirubin AST ALT Alkaline Phosphatase Total Creatine Kinase Troponin I NT-Pro-B Natriuret Pep Total Protein Albumin Globulin Albumin/Globulin Ratio Prealbumin Lipase 25-OH Vitamin D Total Beta-Hydroxybutyric Acd Procalcitonin PTH Intact Urine Color Urine Appearance Urine pH Ur Specific Philipp Urine Protein Urine Glucose (UA) Urine Ketones Urine Blood Urine Nitrite Urine Bilirubin Urine Urobilinogen Ur Leukocyte Esterase Urine WBC (Auto) Urine RBC (Auto) U Hyaline Cast (Auto) U Epithel Cells (Auto) Urine Bacteria (Auto) Ur Renal Epithelial Cell Granular Casts Urine Yeast Nasal Screen MRSA (PCR) Varicella-Zoster Source VZV DNA (PCR) Bld Cult Staph aureus PCR Blood Culture MRSA PCR Blood Type Antibody Screen Crossmatch Transfusion React Date Transfusion React Time Tx React Symptoms Reaction Clerical Check Lab Clerical Err Check React Component Return Volume Returned Pre-Trans Blood Type Pre-Trans Vis Hemolysis Pre-Trans VEGA Pre-Trans VEGA IgG Pre-Trans VEGA Poly Pre-Trans VEGA C3b, C3d Post-Trans Blood Type Post-Tx Visible Hemolys Post-Trans VEGA Post-Trans VEGA IgG Post-Trans VEGA Poly Post-Trans VEGA C3b, C3d Post-Trans Ur Hemoglobin Reaction Path Interpret Transfusion Serv Com 06/20/18 06/20/18 06/20/18 06:01 06:01 07:53 WBC 8.49 RBC 3.10 L Hgb 9.3 L Hct 29.5 L MCV 95.2 MCH 30.0 MCHC 31.5 L RDW Std Deviation 57.1 H RDW Coeff of Yariel 19.7 H Plt Count 131 MPV 9.8 Immature Gran % (Auto) Neut % (Auto) Lymph % (Auto) Upton % (Auto) Eos % (Auto) Baso % (Auto) Immature Gran # (Auto) Neut # (Auto) Lymph # (Auto) Upton # (Auto) Eos # (Auto) Baso # (Auto) Absolute Nucleated RBC 0.09 H Nucleated RBC % (auto) 1.1 Toxic Granulation Toxic Vacuolation Dohle Bodies Platelet Estimate Giant Platelets Polychromasia Poikilocytosis Anisocytosis Spherocytes PT INR APTT PTT Ratio ABG pH ABG pCO2 ABG pO2 ABG HCO3 ABG O2 Saturation ABG Base Excess Kaleb Test Barometric Pressure Oxygen Given Sodium 140 Potassium 3.5 Chloride 102 Carbon Dioxide 34 H Anion Gap 4.0 BUN 24 H Creatinine 1.00 Est Cr Clr Drug Dosing 59.7 Est GFR ( Amer) 65.6 Est GFR (Non-Af Amer) 56.6 BUN/Creatinine Ratio 23.9 H Glucose 136 H POC Glucose 150 H Lactate Calcium 7.8 L Ionized Calcium Phosphorus Magnesium Total Bilirubin Direct Bilirubin AST ALT Alkaline Phosphatase Total Creatine Kinase Troponin I NT-Pro-B Natriuret Pep Total Protein Albumin Globulin Albumin/Globulin Ratio Prealbumin Lipase 25-OH Vitamin D Total Beta-Hydroxybutyric Acd Procalcitonin PTH Intact Urine Color Urine Appearance Urine pH Ur Specific Philipp Urine Protein Urine Glucose (UA) Urine Ketones Urine Blood Urine Nitrite Urine Bilirubin Urine Urobilinogen Ur Leukocyte Esterase Urine WBC (Auto) Urine RBC (Auto) U Hyaline Cast (Auto) U Epithel Cells (Auto) Urine Bacteria (Auto) Ur Renal Epithelial Cell Granular Casts Urine Yeast Nasal Screen MRSA (PCR) Varicella-Zoster Source VZV DNA (PCR) Bld Cult Staph aureus PCR Blood Culture MRSA PCR Blood Type Antibody Screen Crossmatch Transfusion React Date Transfusion React Time Tx React Symptoms Reaction Clerical Check Lab Clerical Err Check React Component Return Volume Returned Pre-Trans Blood Type Pre-Trans Vis Hemolysis Pre-Trans VEGA Pre-Trans VEGA IgG Pre-Trans VEGA Poly Pre-Trans VEGA C3b, C3d Post-Trans Blood Type Post-Tx Visible Hemolys Post-Trans VEGA Post-Trans VEGA IgG Post-Trans VEGA Poly Post-Trans VEGA C3b, C3d Post-Trans Ur Hemoglobin Reaction Path Interpret Transfusion Serv Com 06/20/18 06/20/18 06/20/18 11:36 16:38 20:32 WBC RBC Hgb Hct MCV MCH MCHC RDW Std Deviation RDW Coeff of Yraiel Plt Count MPV Immature Gran % (Auto) Neut % (Auto) Lymph % (Auto) Upton % (Auto) Eos % (Auto) Baso % (Auto) Immature Gran # (Auto) Neut # (Auto) Lymph # (Auto) Upton # (Auto) Eos # (Auto) Baso # (Auto) Absolute Nucleated RBC Nucleated RBC % (auto) Toxic Granulation Toxic Vacuolation Dohle Bodies Platelet Estimate Giant Platelets Polychromasia Poikilocytosis Anisocytosis Spherocytes PT INR APTT PTT Ratio ABG pH ABG pCO2 ABG pO2 ABG HCO3 ABG O2 Saturation ABG Base Excess Kaleb Test Barometric Pressure Oxygen Given Sodium Potassium Chloride Carbon Dioxide Anion Gap BUN Creatinine Est Cr Clr Drug Dosing Est GFR ( Amer) Est GFR (Non-Af Amer) BUN/Creatinine Ratio Glucose POC Glucose 162 H 174 H 127 H Lactate Calcium Ionized Calcium Phosphorus Magnesium Total Bilirubin Direct Bilirubin AST ALT Alkaline Phosphatase Total Creatine Kinase Troponin I NT-Pro-B Natriuret Pep Total Protein Albumin Globulin Albumin/Globulin Ratio Prealbumin Lipase 25-OH Vitamin D Total Beta-Hydroxybutyric Acd Procalcitonin PTH Intact Urine Color Urine Appearance Urine pH Ur Specific Philipp Urine Protein Urine Glucose (UA) Urine Ketones Urine Blood Urine Nitrite Urine Bilirubin Urine Urobilinogen Ur Leukocyte Esterase Urine WBC (Auto) Urine RBC (Auto) U Hyaline Cast (Auto) U Epithel Cells (Auto) Urine Bacteria (Auto) Ur Renal Epithelial Cell Granular Casts Urine Yeast Nasal Screen MRSA (PCR) Varicella-Zoster Source VZV DNA (PCR) Bld Cult Staph aureus PCR Blood Culture MRSA PCR Blood Type Antibody Screen Crossmatch Transfusion React Date Transfusion React Time Tx React Symptoms Reaction Clerical Check Lab Clerical Err Check React Component Return Volume Returned Pre-Trans Blood Type Pre-Trans Vis Hemolysis Pre-Trans VEGA Pre-Trans VEGA IgG Pre-Trans VEGA Poly Pre-Trans VEGA C3b, C3d Post-Trans Blood Type Post-Tx Visible Hemolys Post-Trans VEGA Post-Trans VEGA IgG Post-Trans VEGA Poly Post-Trans VEGA C3b, C3d Post-Trans Ur Hemoglobin Reaction Path Interpret Transfusion Serv Com 06/21/18 06/21/18 06/21/18 07:19 11:44 16:41 WBC RBC Hgb Hct MCV MCH MCHC RDW Std Deviation RDW Coeff of Yariel Plt Count MPV Immature Gran % (Auto) Neut % (Auto) Lymph % (Auto) Upton % (Auto) Eos % (Auto) Baso % (Auto) Immature Gran # (Auto) Neut # (Auto) Lymph # (Auto) Upton # (Auto) Eos # (Auto) Baso # (Auto) Absolute Nucleated RBC Nucleated RBC % (auto) Toxic Granulation Toxic Vacuolation Dohle Bodies Platelet Estimate Giant Platelets Polychromasia Poikilocytosis Anisocytosis Spherocytes PT INR APTT PTT Ratio ABG pH ABG pCO2 ABG pO2 ABG HCO3 ABG O2 Saturation ABG Base Excess Kaleb Test Barometric Pressure Oxygen Given Sodium Potassium Chloride Carbon Dioxide Anion Gap BUN Creatinine Est Cr Clr Drug Dosing Est GFR ( Amer) Est GFR (Non-Af Amer) BUN/Creatinine Ratio Glucose POC Glucose 111 H 236 H 187 H Lactate Calcium Ionized Calcium Phosphorus Magnesium Total Bilirubin Direct Bilirubin AST ALT Alkaline Phosphatase Total Creatine Kinase Troponin I NT-Pro-B Natriuret Pep Total Protein Albumin Globulin Albumin/Globulin Ratio Prealbumin Lipase 25-OH Vitamin D Total Beta-Hydroxybutyric Acd Procalcitonin PTH Intact Urine Color Urine Appearance Urine pH Ur Specific Philipp Urine Protein Urine Glucose (UA) Urine Ketones Urine Blood Urine Nitrite Urine Bilirubin Urine Urobilinogen Ur Leukocyte Esterase Urine WBC (Auto) Urine RBC (Auto) U Hyaline Cast (Auto) U Epithel Cells (Auto) Urine Bacteria (Auto) Ur Renal Epithelial Cell Granular Casts Urine Yeast Nasal Screen MRSA (PCR) Varicella-Zoster Source VZV DNA (PCR) Bld Cult Staph aureus PCR Blood Culture MRSA PCR Blood Type Antibody Screen Crossmatch Transfusion React Date Transfusion React Time Tx React Symptoms Reaction Clerical Check Lab Clerical Err Check React Component Return Volume Returned Pre-Trans Blood Type Pre-Trans Vis Hemolysis Pre-Trans VEGA Pre-Trans VEGA IgG Pre-Trans VEGA Poly Pre-Trans VEGA C3b, C3d Post-Trans Blood Type Post-Tx Visible Hemolys Post-Trans VEGA Post-Trans VEGA IgG Post-Trans VEGA Poly Post-Trans VEGA C3b, C3d Post-Trans Ur Hemoglobin Reaction Path Interpret Transfusion Serv Com 06/21/18 06/22/18 06/22/18 20:14 07:51 11:23 WBC RBC Hgb Hct MCV MCH MCHC RDW Std Deviation RDW Coeff of Yariel Plt Count MPV Immature Gran % (Auto) Neut % (Auto) Lymph % (Auto) Upton % (Auto) Eos % (Auto) Baso % (Auto) Immature Gran # (Auto) Neut # (Auto) Lymph # (Auto) Upton # (Auto) Eos # (Auto) Baso # (Auto) Absolute Nucleated RBC Nucleated RBC % (auto) Toxic Granulation Toxic Vacuolation Dohle Bodies Platelet Estimate Giant Platelets Polychromasia Poikilocytosis Anisocytosis Spherocytes PT INR APTT PTT Ratio ABG pH ABG pCO2 ABG pO2 ABG HCO3 ABG O2 Saturation ABG Base Excess Kaleb Test Barometric Pressure Oxygen Given Sodium Potassium Chloride Carbon Dioxide Anion Gap BUN Creatinine Est Cr Clr Drug Dosing Est GFR ( Amer) Est GFR (Non-Af Amer) BUN/Creatinine Ratio Glucose POC Glucose 174 H 99 127 H Lactate Calcium Ionized Calcium Phosphorus Magnesium Total Bilirubin Direct Bilirubin AST ALT Alkaline Phosphatase Total Creatine Kinase Troponin I NT-Pro-B Natriuret Pep Total Protein Albumin Globulin Albumin/Globulin Ratio Prealbumin Lipase 25-OH Vitamin D Total Beta-Hydroxybutyric Acd Procalcitonin PTH Intact Urine Color Urine Appearance Urine pH Ur Specific Philipp Urine Protein Urine Glucose (UA) Urine Ketones Urine Blood Urine Nitrite Urine Bilirubin Urine Urobilinogen Ur Leukocyte Esterase Urine WBC (Auto) Urine RBC (Auto) U Hyaline Cast (Auto) U Epithel Cells (Auto) Urine Bacteria (Auto) Ur Renal Epithelial Cell Granular Casts Urine Yeast Nasal Screen MRSA (PCR) Varicella-Zoster Source VZV DNA (PCR) Bld Cult Staph aureus PCR Blood Culture MRSA PCR Blood Type Antibody Screen Crossmatch Transfusion React Date Transfusion React Time Tx React Symptoms Reaction Clerical Check Lab Clerical Err Check React Component Return Volume Returned Pre-Trans Blood Type Pre-Trans Vis Hemolysis Pre-Trans VEGA Pre-Trans VEGA IgG Pre-Trans VEGA Poly Pre-Trans VEGA C3b, C3d Post-Trans Blood Type Post-Tx Visible Hemolys Post-Trans VEGA Post-Trans VEGA IgG Post-Trans VEGA Poly Post-Trans VEGA C3b, C3d Post-Trans Ur Hemoglobin Reaction Path Interpret Transfusion Serv Com 06/22/18 06/22/18 06/23/18 16:38 20:29 07:51 WBC RBC Hgb Hct MCV MCH MCHC RDW Std Deviation RDW Coeff of Yariel Plt Count MPV Immature Gran % (Auto) Neut % (Auto) Lymph % (Auto) Upton % (Auto) Eos % (Auto) Baso % (Auto) Immature Gran # (Auto) Neut # (Auto) Lymph # (Auto) Upton # (Auto) Eos # (Auto) Baso # (Auto) Absolute Nucleated RBC Nucleated RBC % (auto) Toxic Granulation Toxic Vacuolation Dohle Bodies Platelet Estimate Giant Platelets Polychromasia Poikilocytosis Anisocytosis Spherocytes PT INR APTT PTT Ratio ABG pH ABG pCO2 ABG pO2 ABG HCO3 ABG O2 Saturation ABG Base Excess Kaleb Test Barometric Pressure Oxygen Given Sodium Potassium Chloride Carbon Dioxide Anion Gap BUN Creatinine Est Cr Clr Drug Dosing Est GFR ( Amer) Est GFR (Non-Af Amer) BUN/Creatinine Ratio Glucose POC Glucose 145 H 174 H 127 H Lactate Calcium Ionized Calcium Phosphorus Magnesium Total Bilirubin Direct Bilirubin AST ALT Alkaline Phosphatase Total Creatine Kinase Troponin I NT-Pro-B Natriuret Pep Total Protein Albumin Globulin Albumin/Globulin Ratio Prealbumin Lipase 25-OH Vitamin D Total Beta-Hydroxybutyric Acd Procalcitonin PTH Intact Urine Color Urine Appearance Urine pH Ur Specific Philipp Urine Protein Urine Glucose (UA) Urine Ketones Urine Blood Urine Nitrite Urine Bilirubin Urine Urobilinogen Ur Leukocyte Esterase Urine WBC (Auto) Urine RBC (Auto) U Hyaline Cast (Auto) U Epithel Cells (Auto) Urine Bacteria (Auto) Ur Renal Epithelial Cell Granular Casts Urine Yeast Nasal Screen MRSA (PCR) Varicella-Zoster Source VZV DNA (PCR) Bld Cult Staph aureus PCR Blood Culture MRSA PCR Blood Type Antibody Screen Crossmatch Transfusion React Date Transfusion React Time Tx React Symptoms Reaction Clerical Check Lab Clerical Err Check React Component Return Volume Returned Pre-Trans Blood Type Pre-Trans Vis Hemolysis Pre-Trans VEGA Pre-Trans VEGA IgG Pre-Trans VEGA Poly Pre-Trans VEGA C3b, C3d Post-Trans Blood Type Post-Tx Visible Hemolys Post-Trans VEGA Post-Trans VEGA IgG Post-Trans VEGA Poly Post-Trans VEGA C3b, C3d Post-Trans Ur Hemoglobin Reaction Path Interpret Transfusion Serv Com 06/23/18 06/23/18 06/23/18 11:36 16:38 20:09 WBC RBC Hgb Hct MCV MCH MCHC RDW Std Deviation RDW Coeff of Yariel Plt Count MPV Immature Gran % (Auto) Neut % (Auto) Lymph % (Auto) Upton % (Auto) Eos % (Auto) Baso % (Auto) Immature Gran # (Auto) Neut # (Auto) Lymph # (Auto) Upton # (Auto) Eos # (Auto) Baso # (Auto) Absolute Nucleated RBC Nucleated RBC % (auto) Toxic Granulation Toxic Vacuolation Dohle Bodies Platelet Estimate Giant Platelets Polychromasia Poikilocytosis Anisocytosis Spherocytes PT INR APTT PTT Ratio ABG pH ABG pCO2 ABG pO2 ABG HCO3 ABG O2 Saturation ABG Base Excess Kaleb Test Barometric Pressure Oxygen Given Sodium Potassium Chloride Carbon Dioxide Anion Gap BUN Creatinine Est Cr Clr Drug Dosing Est GFR ( Amer) Est GFR (Non-Af Amer) BUN/Creatinine Ratio Glucose POC Glucose 149 H 91 194 H Lactate Calcium Ionized Calcium Phosphorus Magnesium Total Bilirubin Direct Bilirubin AST ALT Alkaline Phosphatase Total Creatine Kinase Troponin I NT-Pro-B Natriuret Pep Total Protein Albumin Globulin Albumin/Globulin Ratio Prealbumin Lipase 25-OH Vitamin D Total Beta-Hydroxybutyric Acd Procalcitonin PTH Intact Urine Color Urine Appearance Urine pH Ur Specific Philipp Urine Protein Urine Glucose (UA) Urine Ketones Urine Blood Urine Nitrite Urine Bilirubin Urine Urobilinogen Ur Leukocyte Esterase Urine WBC (Auto) Urine RBC (Auto) U Hyaline Cast (Auto) U Epithel Cells (Auto) Urine Bacteria (Auto) Ur Renal Epithelial Cell Granular Casts Urine Yeast Nasal Screen MRSA (PCR) Varicella-Zoster Source VZV DNA (PCR) Bld Cult Staph aureus PCR Blood Culture MRSA PCR Blood Type Antibody Screen Crossmatch Transfusion React Date Transfusion React Time Tx React Symptoms Reaction Clerical Check Lab Clerical Err Check React Component Return Volume Returned Pre-Trans Blood Type Pre-Trans Vis Hemolysis Pre-Trans VEGA Pre-Trans VEGA IgG Pre-Trans VEGA Poly Pre-Trans VEGA C3b, C3d Post-Trans Blood Type Post-Tx Visible Hemolys Post-Trans VEGA Post-Trans VEGA IgG Post-Trans VEGA Poly Post-Trans VEGA C3b, C3d Post-Trans Ur Hemoglobin Reaction Path Interpret Transfusion Serv Com 06/24/18 06/24/18 06/24/18 05:39 05:39 05:39 WBC 5.30 RBC 2.32 L Hgb 7.1 L Hct 23.1 L MCV 99.6 MCH 30.6 MCHC 30.7 L RDW Std Deviation 72.0 H RDW Coeff of Yariel 21.4 H Plt Count 143 MPV 9.8 Immature Gran % (Auto) 1.1 Neut % (Auto) 83.6 Lymph % (Auto) 7.5 Upton % (Auto) 6.6 Eos % (Auto) 0.4 Baso % (Auto) 0.8 Immature Gran # (Auto) 0.06 H Neut # (Auto) 4.43 Lymph # (Auto) 0.40 L Upton # (Auto) 0.35 Eos # (Auto) 0.02 Baso # (Auto) 0.04 Absolute Nucleated RBC 0.04 H Nucleated RBC % (auto) 0.7 Toxic Granulation Toxic Vacuolation Dohle Bodies Platelet Estimate Giant Platelets Polychromasia 1+ Poikilocytosis Present Anisocytosis Present Spherocytes 1+ PT INR APTT PTT Ratio ABG pH ABG pCO2 ABG pO2 ABG HCO3 ABG O2 Saturation ABG Base Excess Kaleb Test Barometric Pressure Oxygen Given Sodium 140 Potassium 3.3 L Chloride 100 Carbon Dioxide 35 H Anion Gap 5.0 BUN 28 H Creatinine 1.36 H 1.37 H Est Cr Clr Drug Dosing 44.1 43.8 Est GFR ( Amer) 45.3 44.9 Est GFR (Non-Af Amer) 39.1 38.7 BUN/Creatinine Ratio 20.6 H Glucose 75 POC Glucose Lactate Calcium 8.1 L Ionized Calcium Phosphorus 4.0 Magnesium Total Bilirubin Direct Bilirubin AST ALT Alkaline Phosphatase Total Creatine Kinase 41 Troponin I NT-Pro-B Natriuret Pep Total Protein Albumin 2.0 L Globulin Albumin/Globulin Ratio Prealbumin Lipase 25-OH Vitamin D Total Beta-Hydroxybutyric Acd Procalcitonin PTH Intact Urine Color Urine Appearance Urine pH Ur Specific Philipp Urine Protein Urine Glucose (UA) Urine Ketones Urine Blood Urine Nitrite Urine Bilirubin Urine Urobilinogen Ur Leukocyte Esterase Urine WBC (Auto) Urine RBC (Auto) U Hyaline Cast (Auto) U Epithel Cells (Auto) Urine Bacteria (Auto) Ur Renal Epithelial Cell Granular Casts Urine Yeast Nasal Screen MRSA (PCR) Varicella-Zoster Source VZV DNA (PCR) Bld Cult Staph aureus PCR Blood Culture MRSA PCR Blood Type Antibody Screen Crossmatch Transfusion React Date Transfusion React Time Tx React Symptoms Reaction Clerical Check Lab Clerical Err Check React Component Return Volume Returned Pre-Trans Blood Type Pre-Trans Vis Hemolysis Pre-Trans VEGA Pre-Trans VEGA IgG Pre-Trans VEGA Poly Pre-Trans VEGA C3b, C3d Post-Trans Blood Type Post-Tx Visible Hemolys Post-Trans VEGA Post-Trans VEGA IgG Post-Trans VEGA Poly Post-Trans VEGA C3b, C3d Post-Trans Ur Hemoglobin Reaction Path Interpret Transfusion Serv Com 06/24/18 06/24/18 06/24/18 07:41 10:14 11:39 WBC RBC Hgb Hct MCV MCH MCHC RDW Std Deviation RDW Coeff of Yariel Plt Count MPV Immature Gran % (Auto) Neut % (Auto) Lymph % (Auto) Upton % (Auto) Eos % (Auto) Baso % (Auto) Immature Gran # (Auto) Neut # (Auto) Lymph # (Auto) Upton # (Auto) Eos # (Auto) Baso # (Auto) Absolute Nucleated RBC Nucleated RBC % (auto) Toxic Granulation Toxic Vacuolation Dohle Bodies Platelet Estimate Giant Platelets Polychromasia Poikilocytosis Anisocytosis Spherocytes PT INR APTT PTT Ratio ABG pH ABG pCO2 ABG pO2 ABG HCO3 ABG O2 Saturation ABG Base Excess Kaleb Test Barometric Pressure Oxygen Given Sodium Potassium Chloride Carbon Dioxide Anion Gap BUN Creatinine Est Cr Clr Drug Dosing Est GFR ( Amer) Est GFR (Non-Af Amer) BUN/Creatinine Ratio Glucose POC Glucose 83 148 H Lactate Calcium Ionized Calcium Phosphorus Magnesium Total Bilirubin Direct Bilirubin AST ALT Alkaline Phosphatase Total Creatine Kinase Troponin I NT-Pro-B Natriuret Pep Total Protein Albumin Globulin Albumin/Globulin Ratio Prealbumin Lipase 25-OH Vitamin D Total Beta-Hydroxybutyric Acd Procalcitonin PTH Intact Urine Color Urine Appearance Urine pH Ur Specific Philipp Urine Protein Urine Glucose (UA) Urine Ketones Urine Blood Urine Nitrite Urine Bilirubin Urine Urobilinogen Ur Leukocyte Esterase Urine WBC (Auto) Urine RBC (Auto) U Hyaline Cast (Auto) U Epithel Cells (Auto) Urine Bacteria (Auto) Ur Renal Epithelial Cell Granular Casts Urine Yeast Nasal Screen MRSA (PCR) Varicella-Zoster Source VZV DNA (PCR) Bld Cult Staph aureus PCR Blood Culture MRSA PCR Blood Type A Positive Antibody Screen NEGATIVE Crossmatch See Detail Transfusion React Date Transfusion React Time Tx React Symptoms Reaction Clerical Check Lab Clerical Err Check React Component Return Volume Returned Pre-Trans Blood Type Pre-Trans Vis Hemolysis Pre-Trans VEGA Pre-Trans VEGA IgG Pre-Trans VEGA Poly Pre-Trans VEGA C3b, C3d Post-Trans Blood Type Post-Tx Visible Hemolys Post-Trans VEGA Post-Trans VEGA IgG Post-Trans VEGA Poly Post-Trans VEGA C3b, C3d Post-Trans Ur Hemoglobin Reaction Path Interpret Transfusion Serv Com 06/24/18 06/24/18 06/24/18 16:45 17:29 17:29 WBC RBC Hgb Hct MCV MCH MCHC RDW Std Deviation RDW Coeff of Yariel Plt Count MPV Immature Gran % (Auto) Neut % (Auto) Lymph % (Auto) Upton % (Auto) Eos % (Auto) Baso % (Auto) Immature Gran # (Auto) Neut # (Auto) Lymph # (Auto) Upton # (Auto) Eos # (Auto) Baso # (Auto) Absolute Nucleated RBC Nucleated RBC % (auto) Toxic Granulation Toxic Vacuolation Dohle Bodies Platelet Estimate Giant Platelets Polychromasia Poikilocytosis Anisocytosis Spherocytes PT INR APTT PTT Ratio ABG pH ABG pCO2 ABG pO2 ABG HCO3 ABG O2 Saturation ABG Base Excess Kaleb Test Barometric Pressure Oxygen Given Sodium Potassium Chloride Carbon Dioxide Anion Gap BUN Creatinine Est Cr Clr Drug Dosing Est GFR ( Amer) Est GFR (Non-Af Amer) BUN/Creatinine Ratio Glucose POC Glucose 116 H Lactate Calcium Ionized Calcium Phosphorus Magnesium Total Bilirubin Direct Bilirubin AST ALT Alkaline Phosphatase Total Creatine Kinase Troponin I NT-Pro-B Natriuret Pep Total Protein Albumin Globulin Albumin/Globulin Ratio Prealbumin Lipase 25-OH Vitamin D Total Beta-Hydroxybutyric Acd Procalcitonin PTH Intact Urine Color Urine Appearance Urine pH Ur Specific Philipp Urine Protein Urine Glucose (UA) Urine Ketones Urine Blood Urine Nitrite Urine Bilirubin Urine Urobilinogen Ur Leukocyte Esterase Urine WBC (Auto) Urine RBC (Auto) U Hyaline Cast (Auto) U Epithel Cells (Auto) Urine Bacteria (Auto) Ur Renal Epithelial Cell Granular Casts Urine Yeast Nasal Screen MRSA (PCR) Varicella-Zoster Source VZV DNA (PCR) Bld Cult Staph aureus PCR Blood Culture MRSA PCR Blood Type Antibody Screen Crossmatch Transfusion React Date Cancelled 06/24/18 Transfusion React Time Cancelled 1640 Tx React Symptoms Cancelled Hypoxia, Chest pain Reaction Clerical Check Cancelled None Found Lab Clerical Err Check Cancelled None Found React Component Return Cancelled PCLRIRR Volume Returned Cancelled 190 Pre-Trans Blood Type Cancelled A POSITIVE Pre-Trans Vis Hemolysis Cancelled No Pre-Trans VEGA Cancelled Negative Pre-Trans VEGA IgG Cancelled Neg Pre-Trans VEGA Poly Cancelled Neg Pre-Trans VEGA C3b, C3d Cancelled Neg Post-Trans Blood Type Cancelled A POSITIVE Post-Tx Visible Hemolys Cancelled No Post-Trans VEGA Cancelled Negative Post-Trans VEGA IgG Cancelled Neg Post-Trans VEGA Poly Cancelled Neg Post-Trans VEGA C3b, C3d Cancelled Neg Post-Trans Ur Hemoglobin Cancelled No urine provided Reaction Path Interpret Cancelled Transfusion Serv Com Cancelled 06/24/18 06/24/18 06/24/18 21:01 22:52 22:52 WBC 7.70 RBC 3.23 L Hgb 9.7 L Hct 30.8 L MCV 95.4 MCH 30.0 MCHC 31.5 L RDW Std Deviation 61.4 H RDW Coeff of Yariel 21.3 H Plt Count 142 MPV 9.9 Immature Gran % (Auto) 0.5 Neut % (Auto) 90.5 Lymph % (Auto) 7.0 Upton % (Auto) 1.6 Eos % (Auto) 0.0 Baso % (Auto) 0.4 Immature Gran # (Auto) 0.04 H Neut # (Auto) 6.97 H Lymph # (Auto) 0.54 L Upton # (Auto) 0.12 Eos # (Auto) 0.00 Baso # (Auto) 0.03 Absolute Nucleated RBC 0.02 H Nucleated RBC % (auto) 0.3 Toxic Granulation Toxic Vacuolation Dohle Bodies Platelet Estimate Giant Platelets Polychromasia 1+ Poikilocytosis Anisocytosis Present Spherocytes Occasional PT INR APTT 27.5 PTT Ratio 1.0 ABG pH ABG pCO2 ABG pO2 ABG HCO3 ABG O2 Saturation ABG Base Excess Kaleb Test Barometric Pressure Oxygen Given Sodium Potassium Chloride Carbon Dioxide Anion Gap BUN Creatinine Est Cr Clr Drug Dosing Est GFR ( Amer) Est GFR (Non-Af Amer) BUN/Creatinine Ratio Glucose POC Glucose 152 H Lactate Calcium Ionized Calcium Phosphorus Magnesium Total Bilirubin Direct Bilirubin AST ALT Alkaline Phosphatase Total Creatine Kinase Troponin I NT-Pro-B Natriuret Pep Total Protein Albumin Globulin Albumin/Globulin Ratio Prealbumin Lipase 25-OH Vitamin D Total Beta-Hydroxybutyric Acd Procalcitonin PTH Intact Urine Color Urine Appearance Urine pH Ur Specific Philipp Urine Protein Urine Glucose (UA) Urine Ketones Urine Blood Urine Nitrite Urine Bilirubin Urine Urobilinogen Ur Leukocyte Esterase Urine WBC (Auto) Urine RBC (Auto) U Hyaline Cast (Auto) U Epithel Cells (Auto) Urine Bacteria (Auto) Ur Renal Epithelial Cell Granular Casts Urine Yeast Nasal Screen MRSA (PCR) Varicella-Zoster Source VZV DNA (PCR) Bld Cult Staph aureus PCR Blood Culture MRSA PCR Blood Type Antibody Screen Crossmatch Transfusion React Date Transfusion React Time Tx React Symptoms Reaction Clerical Check Lab Clerical Err Check React Component Return Volume Returned Pre-Trans Blood Type Pre-Trans Vis Hemolysis Pre-Trans VEGA Pre-Trans VEGA IgG Pre-Trans VEGA Poly Pre-Trans VEGA C3b, C3d Post-Trans Blood Type Post-Tx Visible Hemolys Post-Trans VEGA Post-Trans VEGA IgG Post-Trans VEGA Poly Post-Trans VEGA C3b, C3d Post-Trans Ur Hemoglobin Reaction Path Interpret Transfusion Serv Com 06/24/18 06/24/18 06/25/18 22:52 22:52 04:47 WBC RBC Hgb Hct MCV MCH MCHC RDW Std Deviation RDW Coeff of Yariel Plt Count MPV Immature Gran % (Auto) Neut % (Auto) Lymph % (Auto) Upton % (Auto) Eos % (Auto) Baso % (Auto) Immature Gran # (Auto) Neut # (Auto) Lymph # (Auto) Upton # (Auto) Eos # (Auto) Baso # (Auto) Absolute Nucleated RBC Nucleated RBC % (auto) Toxic Granulation Toxic Vacuolation Dohle Bodies Platelet Estimate Giant Platelets Polychromasia Poikilocytosis Anisocytosis Spherocytes PT INR APTT PTT Ratio ABG pH 7.45 ABG pCO2 45 ABG pO2 74 L ABG HCO3 30 H ABG O2 Saturation 93.1 ABG Base Excess 5.6 H Kaleb Test Pos Barometric Pressure 734.4 Oxygen Given 13 L Sodium 136 136 Potassium 5.0 D 4.4 Chloride 98 97 L Carbon Dioxide 33 H 31 Anion Gap 5.0 8.0 BUN 31 H 34 H Creatinine 1.53 H 1.58 H Est Cr Clr Drug Dosing 39.2 38.0 Est GFR ( Amer) 39.3 37.8 Est GFR (Non-Af Amer) 33.9 32.6 BUN/Creatinine Ratio 20.0 21.5 H Glucose 250 H 346 H POC Glucose Lactate Calcium 8.0 L 7.9 L Ionized Calcium Phosphorus Magnesium 1.9 2.5 H Total Bilirubin Direct Bilirubin AST ALT Alkaline Phosphatase Total Creatine Kinase Troponin I 0.025 NT-Pro-B Natriuret Pep Total Protein Albumin Globulin Albumin/Globulin Ratio Prealbumin Lipase 25-OH Vitamin D Total Beta-Hydroxybutyric Acd 11.06 H Procalcitonin PTH Intact Urine Color Urine Appearance Urine pH Ur Specific Philipp Urine Protein Urine Glucose (UA) Urine Ketones Urine Blood Urine Nitrite Urine Bilirubin Urine Urobilinogen Ur Leukocyte Esterase Urine WBC (Auto) Urine RBC (Auto) U Hyaline Cast (Auto) U Epithel Cells (Auto) Urine Bacteria (Auto) Ur Renal Epithelial Cell Granular Casts Urine Yeast Nasal Screen MRSA (PCR) Varicella-Zoster Source VZV DNA (PCR) Bld Cult Staph aureus PCR Blood Culture MRSA PCR Blood Type Antibody Screen Crossmatch Transfusion React Date Transfusion React Time Tx React Symptoms Reaction Clerical Check Lab Clerical Err Check React Component Return Volume Returned Pre-Trans Blood Type Pre-Trans Vis Hemolysis Pre-Trans VEGA Pre-Trans VEGA IgG Pre-Trans VEGA Poly Pre-Trans VEGA C3b, C3d Post-Trans Blood Type Post-Tx Visible Hemolys Post-Trans VEGA Post-Trans VEGA IgG Post-Trans VEGA Poly Post-Trans VEGA C3b, C3d Post-Trans Ur Hemoglobin Reaction Path Interpret Transfusion Serv Com 06/25/18 06/25/18 06/25/18 04:47 04:47 06:00 WBC 6.89 RBC 3.13 L Hgb 9.4 L Hct 29.8 L MCV 95.2 MCH 30.0 MCHC 31.5 L RDW Std Deviation 63.9 H RDW Coeff of Yariel 21.6 H Plt Count 154 MPV 10.2 Immature Gran % (Auto) Neut % (Auto) Lymph % (Auto) Upton % (Auto) Eos % (Auto) Baso % (Auto) Immature Gran # (Auto) Neut # (Auto) Lymph # (Auto) Upton # (Auto) Eos # (Auto) Baso # (Auto) Absolute Nucleated RBC 0.02 H Nucleated RBC % (auto) 0.3 Toxic Granulation Toxic Vacuolation Dohle Bodies Platelet Estimate Giant Platelets Polychromasia Poikilocytosis Anisocytosis Spherocytes PT INR APTT PTT Ratio ABG pH ABG pCO2 ABG pO2 ABG HCO3 ABG O2 Saturation ABG Base Excess Kaleb Test Barometric Pressure Oxygen Given Sodium Potassium Chloride Carbon Dioxide Anion Gap BUN Creatinine Est Cr Clr Drug Dosing Est GFR ( Amer) Est GFR (Non-Af Amer) BUN/Creatinine Ratio Glucose POC Glucose 374 H* Lactate 1.1 Calcium Ionized Calcium Phosphorus Magnesium Total Bilirubin Direct Bilirubin AST ALT Alkaline Phosphatase Total Creatine Kinase Troponin I NT-Pro-B Natriuret Pep Total Protein Albumin Globulin Albumin/Globulin Ratio Prealbumin Lipase 25-OH Vitamin D Total Beta-Hydroxybutyric Acd Procalcitonin PTH Intact Urine Color Urine Appearance Urine pH Ur Specific Philipp Urine Protein Urine Glucose (UA) Urine Ketones Urine Blood Urine Nitrite Urine Bilirubin Urine Urobilinogen Ur Leukocyte Esterase Urine WBC (Auto) Urine RBC (Auto) U Hyaline Cast (Auto) U Epithel Cells (Auto) Urine Bacteria (Auto) Ur Renal Epithelial Cell Granular Casts Urine Yeast Nasal Screen MRSA (PCR) Varicella-Zoster Source VZV DNA (PCR) Bld Cult Staph aureus PCR Blood Culture MRSA PCR Blood Type Antibody Screen Crossmatch Transfusion React Date Transfusion React Time Tx React Symptoms Reaction Clerical Check Lab Clerical Err Check React Component Return Volume Returned Pre-Trans Blood Type Pre-Trans Vis Hemolysis Pre-Trans VGEA Pre-Trans VEGA IgG Pre-Trans VEGA Poly Pre-Trans VEGA C3b, C3d Post-Trans Blood Type Post-Tx Visible Hemolys Post-Trans VEGA Post-Trans VEGA IgG Post-Trans VEGA Poly Post-Trans VEGA C3b, C3d Post-Trans Ur Hemoglobin Reaction Path Interpret Transfusion Serv Com 06/25/18 06/25/18 06/25/18 06:01 06:15 08:07 WBC RBC Hgb Hct MCV MCH MCHC RDW Std Deviation RDW Coeff of Yariel Plt Count MPV Immature Gran % (Auto) Neut % (Auto) Lymph % (Auto) Upton % (Auto) Eos % (Auto) Baso % (Auto) Immature Gran # (Auto) Neut # (Auto) Lymph # (Auto) Upton # (Auto) Eos # (Auto) Baso # (Auto) Absolute Nucleated RBC Nucleated RBC % (auto) Toxic Granulation Toxic Vacuolation Dohle Bodies Platelet Estimate Giant Platelets Polychromasia Poikilocytosis Anisocytosis Spherocytes PT INR APTT 133.5 H* PTT Ratio 4.9 ABG pH ABG pCO2 ABG pO2 ABG HCO3 ABG O2 Saturation ABG Base Excess Kaleb Test Barometric Pressure Oxygen Given Sodium Potassium Chloride Carbon Dioxide Anion Gap BUN Creatinine Est Cr Clr Drug Dosing Est GFR ( Amer) Est GFR (Non-Af Amer) BUN/Creatinine Ratio Glucose POC Glucose 377 H* Lactate Calcium Ionized Calcium Phosphorus Magnesium Total Bilirubin Direct Bilirubin AST ALT Alkaline Phosphatase Total Creatine Kinase Troponin I NT-Pro-B Natriuret Pep Total Protein Albumin Globulin Albumin/Globulin Ratio Prealbumin Lipase 25-OH Vitamin D Total Beta-Hydroxybutyric Acd Procalcitonin PTH Intact Urine Color Urine Appearance Urine pH Ur Specific Philipp Urine Protein Urine Glucose (UA) Urine Ketones Urine Blood Urine Nitrite Urine Bilirubin Urine Urobilinogen Ur Leukocyte Esterase Urine WBC (Auto) Urine RBC (Auto) U Hyaline Cast (Auto) U Epithel Cells (Auto) Urine Bacteria (Auto) Ur Renal Epithelial Cell Granular Casts Urine Yeast Nasal Screen MRSA (PCR) Positive A Varicella-Zoster Source VZV DNA (PCR) Bld Cult Staph aureus PCR Blood Culture MRSA PCR Blood Type Antibody Screen Crossmatch Transfusion React Date Transfusion React Time Tx React Symptoms Reaction Clerical Check Lab Clerical Err Check React Component Return Volume Returned Pre-Trans Blood Type Pre-Trans Vis Hemolysis Pre-Trans VEGA Pre-Trans VEGA IgG Pre-Trans VEGA Poly Pre-Trans VEGA C3b, C3d Post-Trans Blood Type Post-Tx Visible Hemolys Post-Trans VEGA Post-Trans VEGA IgG Post-Trans VEGA Poly Post-Trans VEGA C3b, C3d Post-Trans Ur Hemoglobin Reaction Path Interpret Transfusion Serv Com 06/25/18 06/25/18 06/25/18 09:55 10:20 10:20 WBC RBC Hgb Hct MCV MCH MCHC RDW Std Deviation RDW Coeff of Yariel Plt Count MPV Immature Gran % (Auto) Neut % (Auto) Lymph % (Auto) Upton % (Auto) Eos % (Auto) Baso % (Auto) Immature Gran # (Auto) Neut # (Auto) Lymph # (Auto) Upton # (Auto) Eos # (Auto) Baso # (Auto) Absolute Nucleated RBC Nucleated RBC % (auto) Toxic Granulation Toxic Vacuolation Dohle Bodies Platelet Estimate Giant Platelets Polychromasia Poikilocytosis Anisocytosis Spherocytes PT INR APTT 101.0 H* PTT Ratio 3.7 ABG pH ABG pCO2 ABG pO2 ABG HCO3 ABG O2 Saturation ABG Base Excess Kaleb Test Barometric Pressure Oxygen Given Sodium Potassium Chloride Carbon Dioxide Anion Gap BUN Creatinine Est Cr Clr Drug Dosing Est GFR ( Amer) Est GFR (Non-Af Amer) BUN/Creatinine Ratio Glucose POC Glucose 309 H Lactate Calcium Ionized Calcium Phosphorus Magnesium Total Bilirubin 0.7 Direct Bilirubin 0.2 AST 26 ALT 98 H Alkaline Phosphatase 149 H Total Creatine Kinase Troponin I < 0.015 NT-Pro-B Natriuret Pep 287 Total Protein 6.1 L Albumin 2.3 L Globulin Albumin/Globulin Ratio Prealbumin 17.9 L Lipase 25-OH Vitamin D Total Beta-Hydroxybutyric Acd Procalcitonin PTH Intact Urine Color Urine Appearance Urine pH Ur Specific Philipp Urine Protein Urine Glucose (UA) Urine Ketones Urine Blood Urine Nitrite Urine Bilirubin Urine Urobilinogen Ur Leukocyte Esterase Urine WBC (Auto) Urine RBC (Auto) U Hyaline Cast (Auto) U Epithel Cells (Auto) Urine Bacteria (Auto) Ur Renal Epithelial Cell Granular Casts Urine Yeast Nasal Screen MRSA (PCR) Varicella-Zoster Source VZV DNA (PCR) Bld Cult Staph aureus PCR Blood Culture MRSA PCR Blood Type Antibody Screen Crossmatch Transfusion React Date Transfusion React Time Tx React Symptoms Reaction Clerical Check Lab Clerical Err Check React Component Return Volume Returned Pre-Trans Blood Type Pre-Trans Vis Hemolysis Pre-Trans VEGA Pre-Trans VEGA IgG Pre-Trans VEGA Poly Pre-Trans VEGA C3b, C3d Post-Trans Blood Type Post-Tx Visible Hemolys Post-Trans VEGA Post-Trans VEGA IgG Post-Trans VEGA Poly Post-Trans VEGA C3b, C3d Post-Trans Ur Hemoglobin Reaction Path Interpret Transfusion Serv Com 06/25/18 06/25/18 06/25/18 11:51 14:00 14:58 WBC RBC Hgb Hct MCV MCH MCHC RDW Std Deviation RDW Coeff of Yariel Plt Count MPV Immature Gran % (Auto) Neut % (Auto) Lymph % (Auto) Upton % (Auto) Eos % (Auto) Baso % (Auto) Immature Gran # (Auto) Neut # (Auto) Lymph # (Auto) Upton # (Auto) Eos # (Auto) Baso # (Auto) Absolute Nucleated RBC Nucleated RBC % (auto) Toxic Granulation Toxic Vacuolation Dohle Bodies Platelet Estimate Giant Platelets Polychromasia Poikilocytosis Anisocytosis Spherocytes PT INR APTT 49.0 H* PTT Ratio 1.8 ABG pH ABG pCO2 ABG pO2 ABG HCO3 ABG O2 Saturation ABG Base Excess Kaleb Test Barometric Pressure Oxygen Given Sodium Potassium Chloride Carbon Dioxide Anion Gap BUN Creatinine Est Cr Clr Drug Dosing Est GFR ( Amer) Est GFR (Non-Af Amer) BUN/Creatinine Ratio Glucose POC Glucose 254 H 270 H Lactate Calcium Ionized Calcium Phosphorus Magnesium Total Bilirubin Direct Bilirubin AST ALT Alkaline Phosphatase Total Creatine Kinase Troponin I NT-Pro-B Natriuret Pep Total Protein Albumin Globulin Albumin/Globulin Ratio Prealbumin Lipase 25-OH Vitamin D Total Beta-Hydroxybutyric Acd Procalcitonin PTH Intact Urine Color Urine Appearance Urine pH Ur Specific Philipp Urine Protein Urine Glucose (UA) Urine Ketones Urine Blood Urine Nitrite Urine Bilirubin Urine Urobilinogen Ur Leukocyte Esterase Urine WBC (Auto) Urine RBC (Auto) U Hyaline Cast (Auto) U Epithel Cells (Auto) Urine Bacteria (Auto) Ur Renal Epithelial Cell Granular Casts Urine Yeast Nasal Screen MRSA (PCR) Varicella-Zoster Source VZV DNA (PCR) Bld Cult Staph aureus PCR Blood Culture MRSA PCR Blood Type Antibody Screen Crossmatch Transfusion React Date Transfusion React Time Tx React Symptoms Reaction Clerical Check Lab Clerical Err Check React Component Return Volume Returned Pre-Trans Blood Type Pre-Trans Vis Hemolysis Pre-Trans VEGA Pre-Trans VEGA IgG Pre-Trans VEGA Poly Pre-Trans VEGA C3b, C3d Post-Trans Blood Type Post-Tx Visible Hemolys Post-Trans VEGA Post-Trans VEGA IgG Post-Trans VEGA Poly Post-Trans VEGA C3b, C3d Post-Trans Ur Hemoglobin Reaction Path Interpret Transfusion Serv Com 06/25/18 06/25/18 06/25/18 16:05 16:53 18:07 WBC RBC Hgb Hct MCV MCH MCHC RDW Std Deviation RDW Coeff of Yariel Plt Count MPV Immature Gran % (Auto) Neut % (Auto) Lymph % (Auto) Upton % (Auto) Eos % (Auto) Baso % (Auto) Immature Gran # (Auto) Neut # (Auto) Lymph # (Auto) Upton # (Auto) Eos # (Auto) Baso # (Auto) Absolute Nucleated RBC Nucleated RBC % (auto) Toxic Granulation Toxic Vacuolation Dohle Bodies Platelet Estimate Giant Platelets Polychromasia Poikilocytosis Anisocytosis Spherocytes PT INR APTT PTT Ratio ABG pH ABG pCO2 ABG pO2 ABG HCO3 ABG O2 Saturation ABG Base Excess Kaleb Test Barometric Pressure Oxygen Given Sodium Potassium Chloride Carbon Dioxide Anion Gap BUN Creatinine Est Cr Clr Drug Dosing Est GFR ( Amer) Est GFR (Non-Af Amer) BUN/Creatinine Ratio Glucose POC Glucose 199 H 181 H 235 H Lactate Calcium Ionized Calcium Phosphorus Magnesium Total Bilirubin Direct Bilirubin AST ALT Alkaline Phosphatase Total Creatine Kinase Troponin I NT-Pro-B Natriuret Pep Total Protein Albumin Globulin Albumin/Globulin Ratio Prealbumin Lipase 25-OH Vitamin D Total Beta-Hydroxybutyric Acd Procalcitonin PTH Intact Urine Color Urine Appearance Urine pH Ur Specific Philipp Urine Protein Urine Glucose (UA) Urine Ketones Urine Blood Urine Nitrite Urine Bilirubin Urine Urobilinogen Ur Leukocyte Esterase Urine WBC (Auto) Urine RBC (Auto) U Hyaline Cast (Auto) U Epithel Cells (Auto) Urine Bacteria (Auto) Ur Renal Epithelial Cell Granular Casts Urine Yeast Nasal Screen MRSA (PCR) Varicella-Zoster Source VZV DNA (PCR) Bld Cult Staph aureus PCR Blood Culture MRSA PCR Blood Type Antibody Screen Crossmatch Transfusion React Date Transfusion React Time Tx React Symptoms Reaction Clerical Check Lab Clerical Err Check React Component Return Volume Returned Pre-Trans Blood Type Pre-Trans Vis Hemolysis Pre-Trans VEGA Pre-Trans VEGA IgG Pre-Trans VEGA Poly Pre-Trans VEGA C3b, C3d Post-Trans Blood Type Post-Tx Visible Hemolys Post-Trans VEGA Post-Trans VEGA IgG Post-Trans VEGA Poly Post-Trans VEGA C3b, C3d Post-Trans Ur Hemoglobin Reaction Path Interpret Transfusion Serv Com 06/25/18 06/25/18 06/25/18 19:12 19:13 20:06 WBC RBC Hgb Hct MCV MCH MCHC RDW Std Deviation RDW Coeff of Yariel Plt Count MPV Immature Gran % (Auto) Neut % (Auto) Lymph % (Auto) Upton % (Auto) Eos % (Auto) Baso % (Auto) Immature Gran # (Auto) Neut # (Auto) Lymph # (Auto) [place] # (Auto) Eos # (Auto) Baso # (Auto) Absolute Nucleated RBC Nucleated RBC % (auto) Toxic Granulation Toxic Vacuolation Dohle Bodies Platelet Estimate Giant Platelets Polychromasia Poikilocytosis Anisocytosis Spherocytes PT INR APTT 66.3 H* PTT Ratio 2.4 ABG pH ABG pCO2 ABG pO2 ABG HCO3 ABG O2 Saturation ABG Base Excess Kaleb Test Barometric Pressure Oxygen Given Sodium Potassium Chloride Carbon Dioxide Anion Gap BUN Creatinine Est Cr Clr Drug Dosing Est GFR ( Amer) Est GFR (Non-Af Amer) BUN/Creatinine Ratio Glucose POC Glucose 244 H 219 H Lactate Calcium Ionized Calcium Phosphorus Magnesium Total Bilirubin Direct Bilirubin AST ALT Alkaline Phosphatase Total Creatine Kinase Troponin I NT-Pro-B Natriuret Pep Total Protein Albumin Globulin Albumin/Globulin Ratio Prealbumin Lipase 25-OH Vitamin D Total Beta-Hydroxybutyric Acd Procalcitonin PTH Intact Urine Color Urine Appearance Urine pH Ur Specific Philipp Urine Protein Urine Glucose (UA) Urine Ketones Urine Blood Urine Nitrite Urine Bilirubin Urine Urobilinogen Ur Leukocyte Esterase Urine WBC (Auto) Urine RBC (Auto) U Hyaline Cast (Auto) U Epithel Cells (Auto) Urine Bacteria (Auto) Ur Renal Epithelial Cell Granular Casts Urine Yeast Nasal Screen MRSA (PCR) Varicella-Zoster Source VZV DNA (PCR) Bld Cult Staph aureus PCR Blood Culture MRSA PCR Blood Type Antibody Screen Crossmatch Transfusion React Date Transfusion React Time Tx React Symptoms Reaction Clerical Check Lab Clerical Err Check React Component Return Volume Returned Pre-Trans Blood Type Pre-Trans Vis Hemolysis Pre-Trans VEGA Pre-Trans VEGA IgG Pre-Trans VEAG Poly Pre-Trans VEGA C3b, C3d Post-Trans Blood Type Post-Tx Visible Hemolys Post-Trans VEGA Post-Trans VEGA IgG Post-Trans VEGA Poly Post-Trans VEGA C3b, C3d Post-Trans Ur Hemoglobin Reaction Path Interpret Transfusion Serv Com 06/25/18 06/25/18 06/25/18 21:03 22:01 23:05 WBC RBC Hgb Hct MCV MCH MCHC RDW Std Deviation RDW Coeff of Yariel Plt Count MPV Immature Gran % (Auto) Neut % (Auto) Lymph % (Auto) Upton % (Auto) Eos % (Auto) Baso % (Auto) Immature Gran # (Auto) Neut # (Auto) Lymph # (Auto) [place] # (Auto) Eos # (Auto) Baso # (Auto) Absolute Nucleated RBC Nucleated RBC % (auto) Toxic Granulation Toxic Vacuolation Dohle Bodies Platelet Estimate Giant Platelets Polychromasia Poikilocytosis Anisocytosis Spherocytes PT INR APTT PTT Ratio ABG pH ABG pCO2 ABG pO2 ABG HCO3 ABG O2 Saturation ABG Base Excess Kaleb Test Barometric Pressure Oxygen Given Sodium Potassium Chloride Carbon Dioxide Anion Gap BUN Creatinine Est Cr Clr Drug Dosing Est GFR ( Amer) Est GFR (Non-Af Amer) BUN/Creatinine Ratio Glucose POC Glucose 167 H 140 H 109 H Lactate Calcium Ionized Calcium Phosphorus Magnesium Total Bilirubin Direct Bilirubin AST ALT Alkaline Phosphatase Total Creatine Kinase Troponin I NT-Pro-B Natriuret Pep Total Protein Albumin Globulin Albumin/Globulin Ratio Prealbumin Lipase 25-OH Vitamin D Total Beta-Hydroxybutyric Acd Procalcitonin PTH Intact Urine Color Urine Appearance Urine pH Ur Specific Philipp Urine Protein Urine Glucose (UA) Urine Ketones Urine Blood Urine Nitrite Urine Bilirubin Urine Urobilinogen Ur Leukocyte Esterase Urine WBC (Auto) Urine RBC (Auto) U Hyaline Cast (Auto) U Epithel Cells (Auto) Urine Bacteria (Auto) Ur Renal Epithelial Cell Granular Casts Urine Yeast Nasal Screen MRSA (PCR) Varicella-Zoster Source VZV DNA (PCR) Bld Cult Staph aureus PCR Blood Culture MRSA PCR Blood Type Antibody Screen Crossmatch Transfusion React Date Transfusion React Time Tx React Symptoms Reaction Clerical Check Lab Clerical Err Check React Component Return Volume Returned Pre-Trans Blood Type Pre-Trans Vis Hemolysis Pre-Trans VEGA Pre-Trans VEGA IgG Pre-Trans VEGA Poly Pre-Trans VEGA C3b, C3d Post-Trans Blood Type Post-Tx Visible Hemolys Post-Trans VEGA Post-Trans VEGA IgG Post-Trans VEGA Poly Post-Trans VEGA C3b, C3d Post-Trans Ur Hemoglobin Reaction Path Interpret Transfusion Serv Com 06/25/18 06/26/18 06/26/18 23:24 00:20 00:41 WBC RBC Hgb Hct MCV MCH MCHC RDW Std Deviation RDW Coeff of Yariel Plt Count MPV Immature Gran % (Auto) Neut % (Auto) Lymph % (Auto) U[place] % (Auto) Eos % (Auto) Baso % (Auto) Immature Gran # (Auto) Neut # (Auto) Lymph # (Auto) [place]pton # (Auto) Eos # (Auto) Baso # (Auto) Absolute Nucleated RBC Nucleated RBC % (auto) Toxic Granulation Toxic Vacuolation Dohle Bodies Platelet Estimate Giant Platelets Polychromasia Poikilocytosis Anisocytosis Spherocytes PT INR APTT PTT Ratio ABG pH ABG pCO2 ABG pO2 ABG HCO3 ABG O2 Saturation ABG Base Excess Kaleb Test Barometric Pressure Oxygen Given Sodium Potassium Chloride Carbon Dioxide Anion Gap BUN Creatinine Est Cr Clr Drug Dosing Est GFR ( Amer) Est GFR (Non-Af Amer) BUN/Creatinine Ratio Glucose POC Glucose 153 H 110 H 118 H Lactate Calcium Ionized Calcium Phosphorus Magnesium Total Bilirubin Direct Bilirubin AST ALT Alkaline Phosphatase Total Creatine Kinase Troponin I NT-Pro-B Natriuret Pep Total Protein Albumin Globulin Albumin/Globulin Ratio Prealbumin Lipase 25-OH Vitamin D Total Beta-Hydroxybutyric Acd Procalcitonin PTH Intact Urine Color Urine Appearance Urine pH Ur Specific Philipp Urine Protein Urine Glucose (UA) Urine Ketones Urine Blood Urine Nitrite Urine Bilirubin Urine Urobilinogen Ur Leukocyte Esterase Urine WBC (Auto) Urine RBC (Auto) U Hyaline Cast (Auto) U Epithel Cells (Auto) Urine Bacteria (Auto) Ur Renal Epithelial Cell Granular Casts Urine Yeast Nasal Screen MRSA (PCR) Varicella-Zoster Source VZV DNA (PCR) Bld Cult Staph aureus PCR Blood Culture MRSA PCR Blood Type Antibody Screen Crossmatch Transfusion React Date Transfusion React Time Tx React Symptoms Reaction Clerical Check Lab Clerical Err Check React Component Return Volume Returned Pre-Trans Blood Type Pre-Trans Vis Hemolysis Pre-Trans VEGA Pre-Trans VEGA IgG Pre-Trans VEGA Poly Pre-Trans VEGA C3b, C3d Post-Trans Blood Type Post-Tx Visible Hemolys Post-Trans VEGA Post-Trans VEGA IgG Post-Trans VEGA Poly Post-Trans VEGA C3b, C3d Post-Trans Ur Hemoglobin Reaction Path Interpret Transfusion Serv Com 06/26/18 06/26/18 06/26/18 00:57 01:15 01:23 WBC RBC Hgb Hct MCV MCH MCHC RDW Std Deviation RDW Coeff of Yariel Plt Count MPV Immature Gran % (Auto) Neut % (Auto) Lymph % (Auto) [place] % (Auto) Eos % (Auto) Baso % (Auto) Immature Gran # (Auto) Neut # (Auto) Lymph # (Auto) [place] # (Auto) Eos # (Auto) Baso # (Auto) Absolute Nucleated RBC Nucleated RBC % (auto) Toxic Granulation Toxic Vacuolation Dohle Bodies Platelet Estimate Giant Platelets Polychromasia Poikilocytosis Anisocytosis Spherocytes PT INR APTT 89.5 H* PTT Ratio 3.3 ABG pH ABG pCO2 ABG pO2 ABG HCO3 ABG O2 Saturation ABG Base Excess Kaleb Test Barometric Pressure Oxygen Given Sodium Potassium Chloride Carbon Dioxide Anion Gap BUN Creatinine Est Cr Clr Drug Dosing Est GFR ( Amer) Est GFR (Non-Af Amer) BUN/Creatinine Ratio Glucose POC Glucose 122 H 132 H Lactate Calcium Ionized Calcium Phosphorus Magnesium Total Bilirubin Direct Bilirubin AST ALT Alkaline Phosphatase Total Creatine Kinase Troponin I NT-Pro-B Natriuret Pep Total Protein Albumin Globulin Albumin/Globulin Ratio Prealbumin Lipase 25-OH Vitamin D Total Beta-Hydroxybutyric Acd Procalcitonin PTH Intact Urine Color Urine Appearance Urine pH Ur Specific Philipp Urine Protein Urine Glucose (UA) Urine Ketones Urine Blood Urine Nitrite Urine Bilirubin Urine Urobilinogen Ur Leukocyte Esterase Urine WBC (Auto) Urine RBC (Auto) U Hyaline Cast (Auto) U Epithel Cells (Auto) Urine Bacteria (Auto) Ur Renal Epithelial Cell Granular Casts Urine Yeast Nasal Screen MRSA (PCR) Varicella-Zoster Source VZV DNA (PCR) Bld Cult Staph aureus PCR Blood Culture MRSA PCR Blood Type Antibody Screen Crossmatch Transfusion React Date Transfusion React Time Tx React Symptoms Reaction Clerical Check Lab Clerical Err Check React Component Return Volume Returned Pre-Trans Blood Type Pre-Trans Vis Hemolysis Pre-Trans VEGA Pre-Trans VEGA IgG Pre-Trans VEGA Poly Pre-Trans VEGA C3b, C3d Post-Trans Blood Type Post-Tx Visible Hemolys Post-Trans VEGA Post-Trans VEGA IgG Post-Trans VEGA Poly Post-Trans VEGA C3b, C3d Post-Trans Ur Hemoglobin Reaction Path Interpret Transfusion Serv Com 06/26/18 06/26/18 06/26/18 01:35 03:02 05:09 WBC RBC Hgb Hct MCV MCH MCHC RDW Std Deviation RDW Coeff of Yariel Plt Count MPV Immature Gran % (Auto) Neut % (Auto) Lymph % (Auto) [place] % (Auto) Eos % (Auto) Baso % (Auto) Immature Gran # (Auto) Neut # (Auto) Lymph # (Auto) [place] # (Auto) Eos # (Auto) Baso # (Auto) Absolute Nucleated RBC Nucleated RBC % (auto) Toxic Granulation Toxic Vacuolation Dohle Bodies Platelet Estimate Giant Platelets Polychromasia Poikilocytosis Anisocytosis Spherocytes PT 11.7 INR 1.2 H APTT PTT Ratio ABG pH ABG pCO2 ABG pO2 ABG HCO3 ABG O2 Saturation ABG Base Excess Kaleb Test Barometric Pressure Oxygen Given Sodium Potassium Chloride Carbon Dioxide Anion Gap BUN Creatinine Est Cr Clr Drug Dosing Est GFR ( Amer) Est GFR (Non-Af Amer) BUN/Creatinine Ratio Glucose POC Glucose 133 H 156 H Lactate Calcium Ionized Calcium Phosphorus Magnesium Total Bilirubin Direct Bilirubin AST ALT Alkaline Phosphatase Total Creatine Kinase Troponin I NT-Pro-B Natriuret Pep Total Protein Albumin Globulin Albumin/Globulin Ratio Prealbumin Lipase 25-OH Vitamin D Total Beta-Hydroxybutyric Acd Procalcitonin PTH Intact Urine Color Urine Appearance Urine pH Ur Specific Philipp Urine Protein Urine Glucose (UA) Urine Ketones Urine Blood Urine Nitrite Urine Bilirubin Urine Urobilinogen Ur Leukocyte Esterase Urine WBC (Auto) Urine RBC (Auto) U Hyaline Cast (Auto) U Epithel Cells (Auto) Urine Bacteria (Auto) Ur Renal Epithelial Cell Granular Casts Urine Yeast Nasal Screen MRSA (PCR) Varicella-Zoster Source VZV DNA (PCR) Bld Cult Staph aureus PCR Blood Culture MRSA PCR Blood Type Antibody Screen Crossmatch Transfusion React Date Transfusion React Time Tx React Symptoms Reaction Clerical Check Lab Clerical Err Check React Component Return Volume Returned Pre-Trans Blood Type Pre-Trans Vis Hemolysis Pre-Trans VEGA Pre-Trans VEGA IgG Pre-Trans VEGA Poly Pre-Trans VEGA C3b, C3d Post-Trans Blood Type Post-Tx Visible Hemolys Post-Trans VEGA Post-Trans VEGA IgG Post-Trans VEGA Poly Post-Trans VEGA C3b, C3d Post-Trans Ur Hemoglobin Reaction Path Interpret Transfusion Serv Com 06/26/18 06/26/18 06/26/18 05:09 05:10 06:18 WBC RBC Hgb Hct MCV MCH MCHC RDW Std Deviation RDW Coeff of Yariel Plt Count MPV Immature Gran % (Auto) Neut % (Auto) Lymph % (Auto) Upton % (Auto) Eos % (Auto) Baso % (Auto) Immature Gran # (Auto) Neut # (Auto) Lymph # (Auto) [place]pton # (Auto) Eos # (Auto) Baso # (Auto) Absolute Nucleated RBC Nucleated RBC % (auto) Toxic Granulation Toxic Vacuolation Dohle Bodies Platelet Estimate Giant Platelets Polychromasia Poikilocytosis Anisocytosis Spherocytes PT INR APTT PTT Ratio ABG pH ABG pCO2 ABG pO2 ABG HCO3 ABG O2 Saturation ABG Base Excess Kaleb Test Barometric Pressure Oxygen Given Sodium Potassium Chloride Carbon Dioxide Anion Gap BUN Creatinine Est Cr Clr Drug Dosing Est GFR ( Amer) Est GFR (Non-Af Amer) BUN/Creatinine Ratio Glucose POC Glucose 161 H 166 H Lactate Calcium Ionized Calcium Phosphorus 3.8 Magnesium Total Bilirubin Direct Bilirubin AST ALT Alkaline Phosphatase Total Creatine Kinase Troponin I NT-Pro-B Natriuret Pep Total Protein Albumin Globulin Albumin/Globulin Ratio Prealbumin Lipase 25-OH Vitamin D Total Beta-Hydroxybutyric Acd Procalcitonin PTH Intact Urine Color Urine Appearance Urine pH Ur Specific Philipp Urine Protein Urine Glucose (UA) Urine Ketones Urine Blood Urine Nitrite Urine Bilirubin Urine Urobilinogen Ur Leukocyte Esterase Urine WBC (Auto) Urine RBC (Auto) U Hyaline Cast (Auto) U Epithel Cells (Auto) Urine Bacteria (Auto) Ur Renal Epithelial Cell Granular Casts Urine Yeast Nasal Screen MRSA (PCR) Varicella-Zoster Source VZV DNA (PCR) Bld Cult Staph aureus PCR Blood Culture MRSA PCR Blood Type Antibody Screen Crossmatch Transfusion React Date Transfusion React Time Tx React Symptoms Reaction Clerical Check Lab Clerical Err Check React Component Return Volume Returned Pre-Trans Blood Type Pre-Trans Vis Hemolysis Pre-Trans VEGA Pre-Trans VEGA IgG Pre-Trans VEGA Poly Pre-Trans VEGA C3b, C3d Post-Trans Blood Type Post-Tx Visible Hemolys Post-Trans VEGA Post-Trans VEGA IgG Post-Trans VEGA Poly Post-Trans VEGA C3b, C3d Post-Trans Ur Hemoglobin Reaction Path Interpret Transfusion Serv Com 06/26/18 06/26/18 06/26/18 08:37 12:23 15:37 WBC RBC Hgb Hct MCV MCH MCHC RDW Std Deviation RDW Coeff of Yariel Plt Count MPV Immature Gran % (Auto) Neut % (Auto) Lymph % (Auto) [place]pton % (Auto) Eos % (Auto) Baso % (Auto) Immature Gran # (Auto) Neut # (Auto) Lymph # (Auto) [place]pton # (Auto) Eos # (Auto) Baso # (Auto) Absolute Nucleated RBC Nucleated RBC % (auto) Toxic Granulation Toxic Vacuolation Dohle Bodies Platelet Estimate Giant Platelets Polychromasia Poikilocytosis Anisocytosis Spherocytes PT INR APTT 74.9 H* 53.1 H* PTT Ratio 2.8 2.0 ABG pH ABG pCO2 ABG pO2 ABG HCO3 ABG O2 Saturation ABG Base Excess Kaleb Test Barometric Pressure Oxygen Given Sodium Potassium Chloride Carbon Dioxide Anion Gap BUN Creatinine Est Cr Clr Drug Dosing Est GFR ( Amer) Est GFR (Non-Af Amer) BUN/Creatinine Ratio Glucose POC Glucose 152 H Lactate Calcium Ionized Calcium Phosphorus Magnesium Total Bilirubin Direct Bilirubin AST ALT Alkaline Phosphatase Total Creatine Kinase Troponin I NT-Pro-B Natriuret Pep Total Protein Albumin Globulin Albumin/Globulin Ratio Prealbumin Lipase 25-OH Vitamin D Total Beta-Hydroxybutyric Acd Procalcitonin PTH Intact Urine Color Urine Appearance Urine pH Ur Specific Philipp Urine Protein Urine Glucose (UA) Urine Ketones Urine Blood Urine Nitrite Urine Bilirubin Urine Urobilinogen Ur Leukocyte Esterase Urine WBC (Auto) Urine RBC (Auto) U Hyaline Cast (Auto) U Epithel Cells (Auto) Urine Bacteria (Auto) Ur Renal Epithelial Cell Granular Casts Urine Yeast Nasal Screen MRSA (PCR) Varicella-Zoster Source VZV DNA (PCR) Bld Cult Staph aureus PCR Blood Culture MRSA PCR Blood Type Antibody Screen Crossmatch Transfusion React Date Transfusion React Time Tx React Symptoms Reaction Clerical Check Lab Clerical Err Check React Component Return Volume Returned Pre-Trans Blood Type Pre-Trans Vis Hemolysis Pre-Trans VEGA Pre-Trans VEGA IgG Pre-Trans VEGA Poly Pre-Trans VEGA C3b, C3d Post-Trans Blood Type Post-Tx Visible Hemolys Post-Trans VEGA Post-Trans VEGA IgG Post-Trans VEGA Poly Post-Trans VEGA C3b, C3d Post-Trans Ur Hemoglobin Reaction Path Interpret Transfusion Serv Com 06/26/18 06/26/18 06/27/18 16:21 20:47 07:05 WBC RBC Hgb Hct MCV MCH MCHC RDW Std Deviation RDW Coeff of Yariel Plt Count MPV Immature Gran % (Auto) Neut % (Auto) Lymph % (Auto) [place]pton % (Auto) Eos % (Auto) Baso % (Auto) Immature Gran # (Auto) Neut # (Auto) Lymph # (Auto) [place]pton # (Auto) Eos # (Auto) Baso # (Auto) Absolute Nucleated RBC Nucleated RBC % (auto) Toxic Granulation Toxic Vacuolation Dohle Bodies Platelet Estimate Giant Platelets Polychromasia Poikilocytosis Anisocytosis Spherocytes PT INR APTT PTT Ratio ABG pH ABG pCO2 ABG pO2 ABG HCO3 ABG O2 Saturation ABG Base Excess Kaleb Test Barometric Pressure Oxygen Given Sodium Potassium Chloride Carbon Dioxide Anion Gap BUN Creatinine Est Cr Clr Drug Dosing Est GFR ( Amer) Est GFR (Non-Af Amer) BUN/Creatinine Ratio Glucose POC Glucose 212 H 208 H 133 H Lactate Calcium Ionized Calcium Phosphorus Magnesium Total Bilirubin Direct Bilirubin AST ALT Alkaline Phosphatase Total Creatine Kinase Troponin I NT-Pro-B Natriuret Pep Total Protein Albumin Globulin Albumin/Globulin Ratio Prealbumin Lipase 25-OH Vitamin D Total Beta-Hydroxybutyric Acd Procalcitonin PTH Intact Urine Color Urine Appearance Urine pH Ur Specific Philipp Urine Protein Urine Glucose (UA) Urine Ketones Urine Blood Urine Nitrite Urine Bilirubin Urine Urobilinogen Ur Leukocyte Esterase Urine WBC (Auto) Urine RBC (Auto) U Hyaline Cast (Auto) U Epithel Cells (Auto) Urine Bacteria (Auto) Ur Renal Epithelial Cell Granular Casts Urine Yeast Nasal Screen MRSA (PCR) Varicella-Zoster Source VZV DNA (PCR) Bld Cult Staph aureus PCR Blood Culture MRSA PCR Blood Type Antibody Screen Crossmatch Transfusion React Date Transfusion React Time Tx React Symptoms Reaction Clerical Check Lab Clerical Err Check React Component Return Volume Returned Pre-Trans Blood Type Pre-Trans Vis Hemolysis Pre-Trans VEGA Pre-Trans VEGA IgG Pre-Trans VEGA Poly Pre-Trans VEGA C3b, C3d Post-Trans Blood Type Post-Tx Visible Hemolys Post-Trans VEGA Post-Trans VEGA IgG Post-Trans VEGA Poly Post-Trans VEGA C3b, C3d Post-Trans Ur Hemoglobin Reaction Path Interpret Transfusion Serv Com 06/27/18 06/27/18 06/27/18 07:52 07:53 07:53 WBC 8.29 RBC 2.59 L Hgb 7.9 L Hct 25.4 L MCV 98.1 MCH 30.5 MCHC 31.1 L RDW Std Deviation 67.2 H RDW Coeff of Yariel 21.2 H Plt Count 149 MPV 9.8 Immature Gran % (Auto) 1.2 Neut % (Auto) 85.3 Lymph % (Auto) 7.1 Upton % (Auto) 5.7 Eos % (Auto) 0.5 Baso % (Auto) 0.2 Immature Gran # (Auto) 0.10 H Neut # (Auto) 7.07 H Lymph # (Auto) 0.59 L Upton # (Auto) 0.47 Eos # (Auto) 0.04 Baso # (Auto) 0.02 Absolute Nucleated RBC 0.03 H Nucleated RBC % (auto) 0.3 Toxic Granulation Toxic Vacuolation Dohle Bodies Platelet Estimate Giant Platelets Polychromasia Poikilocytosis Anisocytosis Present Spherocytes Occasional PT INR APTT 53.6 H* PTT Ratio 2.0 ABG pH ABG pCO2 ABG pO2 ABG HCO3 ABG O2 Saturation ABG Base Excess Kaleb Test Barometric Pressure Oxygen Given Sodium 140 Potassium 4.0 Chloride 103 Carbon Dioxide 32 Anion Gap 5.0 BUN 37 H Creatinine 1.38 H Est Cr Clr Drug Dosing 42.2 Est GFR ( Amer) 44.5 Est GFR (Non-Af Amer) 38.4 BUN/Creatinine Ratio 26.9 H Glucose 132 H POC Glucose Lactate Calcium 7.7 L Ionized Calcium Phosphorus 3.0 Magnesium 2.2 Total Bilirubin 0.7 Direct Bilirubin 0.2 AST 32 ALT 85 H Alkaline Phosphatase 130 H Total Creatine Kinase Troponin I NT-Pro-B Natriuret Pep Total Protein 5.5 L Albumin 2.2 L Globulin Albumin/Globulin Ratio Prealbumin Lipase 224 25-OH Vitamin D Total Beta-Hydroxybutyric Acd Procalcitonin PTH Intact Urine Color Urine Appearance Urine pH Ur Specific Philipp Urine Protein Urine Glucose (UA) Urine Ketones Urine Blood Urine Nitrite Urine Bilirubin Urine Urobilinogen Ur Leukocyte Esterase Urine WBC (Auto) Urine RBC (Auto) U Hyaline Cast (Auto) U Epithel Cells (Auto) Urine Bacteria (Auto) Ur Renal Epithelial Cell Granular Casts Urine Yeast Nasal Screen MRSA (PCR) Varicella-Zoster Source VZV DNA (PCR) Bld Cult Staph aureus PCR Blood Culture MRSA PCR Blood Type Antibody Screen Crossmatch Transfusion React Date Transfusion React Time Tx React Symptoms Reaction Clerical Check Lab Clerical Err Check React Component Return Volume Returned Pre-Trans Blood Type Pre-Trans Vis Hemolysis Pre-Trans VEGA Pre-Trans VEGA IgG Pre-Trans VEGA Poly Pre-Trans VEGA C3b, C3d Post-Trans Blood Type Post-Tx Visible Hemolys Post-Trans VEGA Post-Trans VEGA IgG Post-Trans VEGA Poly Post-Trans VEGA C3b, C3d Post-Trans Ur Hemoglobin Reaction Path Interpret Transfusion Serv Com 06/27/18 06/27/18 06/27/18 07:53 07:53 11:03 WBC RBC Hgb Hct MCV MCH MCHC RDW Std Deviation RDW Coeff of Yariel Plt Count MPV Immature Gran % (Auto) Neut % (Auto) Lymph % (Auto) Upton % (Auto) Eos % (Auto) Baso % (Auto) Immature Gran # (Auto) Neut # (Auto) Lymph # (Auto) Upton # (Auto) Eos # (Auto) Baso # (Auto) Absolute Nucleated RBC Nucleated RBC % (auto) Toxic Granulation Toxic Vacuolation Dohle Bodies Platelet Estimate Giant Platelets Polychromasia Poikilocytosis Anisocytosis Spherocytes PT INR APTT PTT Ratio ABG pH ABG pCO2 ABG pO2 ABG HCO3 ABG O2 Saturation ABG Base Excess Kaleb Test Barometric Pressure Oxygen Given Sodium Potassium Chloride Carbon Dioxide Anion Gap BUN Creatinine Est Cr Clr Drug Dosing Est GFR ( Amer) Est GFR (Non-Af Amer) BUN/Creatinine Ratio Glucose POC Glucose 221 H Lactate 0.6 Calcium Ionized Calcium 1.07 L Phosphorus Magnesium Total Bilirubin Direct Bilirubin AST ALT Alkaline Phosphatase Total Creatine Kinase Troponin I NT-Pro-B Natriuret Pep Total Protein Albumin Globulin Albumin/Globulin Ratio Prealbumin Lipase 25-OH Vitamin D Total Beta-Hydroxybutyric Acd Procalcitonin PTH Intact Urine Color Urine Appearance Urine pH Ur Specific Philipp Urine Protein Urine Glucose (UA) Urine Ketones Urine Blood Urine Nitrite Urine Bilirubin Urine Urobilinogen Ur Leukocyte Esterase Urine WBC (Auto) Urine RBC (Auto) U Hyaline Cast (Auto) U Epithel Cells (Auto) Urine Bacteria (Auto) Ur Renal Epithelial Cell Granular Casts Urine Yeast Nasal Screen MRSA (PCR) Varicella-Zoster Source VZV DNA (PCR) Bld Cult Staph aureus PCR Blood Culture MRSA PCR Blood Type Antibody Screen Crossmatch Transfusion React Date Transfusion React Time Tx React Symptoms Reaction Clerical Check Lab Clerical Err Check React Component Return Volume Returned Pre-Trans Blood Type Pre-Trans Vis Hemolysis Pre-Trans VEGA Pre-Trans VEGA IgG Pre-Trans VEGA Poly Pre-Trans VEGA C3b, C3d Post-Trans Blood Type Post-Tx Visible Hemolys Post-Trans VEGA Post-Trans VEGA IgG Post-Trans VEGA Poly Post-Trans VEGA C3b, C3d Post-Trans Ur Hemoglobin Reaction Path Interpret Transfusion Serv Com 06/27/18 06/27/18 06/28/18 16:09 20:20 04:48 WBC RBC Hgb Hct MCV MCH MCHC RDW Std Deviation RDW Coeff of Yariel Plt Count MPV Immature Gran % (Auto) Neut % (Auto) Lymph % (Auto) Upton % (Auto) Eos % (Auto) Baso % (Auto) Immature Gran # (Auto) Neut # (Auto) Lymph # (Auto) Upton # (Auto) Eos # (Auto) Baso # (Auto) Absolute Nucleated RBC Nucleated RBC % (auto) Toxic Granulation Toxic Vacuolation Dohle Bodies Platelet Estimate Giant Platelets Polychromasia Poikilocytosis Anisocytosis Spherocytes PT INR APTT 52.7 H* PTT Ratio 1.9 ABG pH ABG pCO2 ABG pO2 ABG HCO3 ABG O2 Saturation ABG Base Excess Kaleb Test Barometric Pressure Oxygen Given Sodium Potassium Chloride Carbon Dioxide Anion Gap BUN Creatinine Est Cr Clr Drug Dosing Est GFR ( Amer) Est GFR (Non-Af Amer) BUN/Creatinine Ratio Glucose POC Glucose 166 H 140 H Lactate Calcium Ionized Calcium Phosphorus Magnesium Total Bilirubin Direct Bilirubin AST ALT Alkaline Phosphatase Total Creatine Kinase Troponin I NT-Pro-B Natriuret Pep Total Protein Albumin Globulin Albumin/Globulin Ratio Prealbumin Lipase 25-OH Vitamin D Total Beta-Hydroxybutyric Acd Procalcitonin PTH Intact Urine Color Urine Appearance Urine pH Ur Specific Philipp Urine Protein Urine Glucose (UA) Urine Ketones Urine Blood Urine Nitrite Urine Bilirubin Urine Urobilinogen Ur Leukocyte Esterase Urine WBC (Auto) Urine RBC (Auto) U Hyaline Cast (Auto) U Epithel Cells (Auto) Urine Bacteria (Auto) Ur Renal Epithelial Cell Granular Casts Urine Yeast Nasal Screen MRSA (PCR) Varicella-Zoster Source VZV DNA (PCR) Bld Cult Staph aureus PCR Blood Culture MRSA PCR Blood Type Antibody Screen Crossmatch Transfusion React Date Transfusion React Time Tx React Symptoms Reaction Clerical Check Lab Clerical Err Check React Component Return Volume Returned Pre-Trans Blood Type Pre-Trans Vis Hemolysis Pre-Trans VEGA Pre-Trans VEGA IgG Pre-Trans VEGA Poly Pre-Trans VEGA C3b, C3d Post-Trans Blood Type Post-Tx Visible Hemolys Post-Trans VEGA Post-Trans VEGA IgG Post-Trans VEGA Poly Post-Trans VEGA C3b, C3d Post-Trans Ur Hemoglobin Reaction Path Interpret Transfusion Serv Com 06/28/18 06/28/18 06/28/18 04:48 04:48 07:03 WBC 6.76 RBC 2.36 L Hgb 7.1 L Hct 23.4 L MCV 99.2 MCH 30.1 MCHC 30.3 L RDW Std Deviation 73.1 H RDW Coeff of Yariel 21.6 H Plt Count 161 MPV 9.8 Immature Gran % (Auto) 2.1 Neut % (Auto) 81.2 Lymph % (Auto) 9.9 Upton % (Auto) 5.5 Eos % (Auto) 1.0 Baso % (Auto) 0.3 Immature Gran # (Auto) 0.14 H Neut # (Auto) 5.49 Lymph # (Auto) 0.67 L Upton # (Auto) 0.37 Eos # (Auto) 0.07 Baso # (Auto) 0.02 Absolute Nucleated RBC 0.04 H Nucleated RBC % (auto) 0.6 Toxic Granulation Toxic Vacuolation Dohle Bodies Platelet Estimate Giant Platelets Polychromasia 1+ Poikilocytosis Anisocytosis Present Spherocytes PT INR APTT PTT Ratio ABG pH ABG pCO2 ABG pO2 ABG HCO3 ABG O2 Saturation ABG Base Excess Kaleb Test Barometric Pressure Oxygen Given Sodium 139 Potassium 3.6 Chloride 105 Carbon Dioxide 31 Anion Gap 3.0 BUN 28 H Creatinine 1.09 Est Cr Clr Drug Dosing 53.4 Est GFR ( Amer) 59.1 Est GFR (Non-Af Amer) 51.0 BUN/Creatinine Ratio 25.4 H Glucose 149 H POC Glucose 145 H Lactate Calcium 7.4 L Ionized Calcium Phosphorus 2.6 Magnesium 2.1 Total Bilirubin Direct Bilirubin AST ALT Alkaline Phosphatase Total Creatine Kinase Troponin I NT-Pro-B Natriuret Pep Total Protein Albumin Globulin Albumin/Globulin Ratio Prealbumin Lipase 25-OH Vitamin D Total Beta-Hydroxybutyric Acd Procalcitonin PTH Intact Urine Color Urine Appearance Urine pH Ur Specific Philipp Urine Protein Urine Glucose (UA) Urine Ketones Urine Blood Urine Nitrite Urine Bilirubin Urine Urobilinogen Ur Leukocyte Esterase Urine WBC (Auto) Urine RBC (Auto) U Hyaline Cast (Auto) U Epithel Cells (Auto) Urine Bacteria (Auto) Ur Renal Epithelial Cell Granular Casts Urine Yeast Nasal Screen MRSA (PCR) Varicella-Zoster Source VZV DNA (PCR) Bld Cult Staph aureus PCR Blood Culture MRSA PCR Blood Type Antibody Screen Crossmatch Transfusion React Date Transfusion React Time Tx React Symptoms Reaction Clerical Check Lab Clerical Err Check React Component Return Volume Returned Pre-Trans Blood Type Pre-Trans Vis Hemolysis Pre-Trans VEGA Pre-Trans VEGA IgG Pre-Trans VEGA Poly Pre-Trans VEGA C3b, C3d Post-Trans Blood Type Post-Tx Visible Hemolys Post-Trans VEGA Post-Trans VEGA IgG Post-Trans VEGA Poly Post-Trans VEGA C3b, C3d Post-Trans Ur Hemoglobin Reaction Path Interpret Transfusion Serv Com 06/28/18 06/28/18 06/28/18 11:07 11:29 16:14 WBC RBC Hgb 7.8 L Hct 25.6 L MCV MCH MCHC RDW Std Deviation RDW Coeff of Yariel Plt Count MPV Immature Gran % (Auto) Neut % (Auto) Lymph % (Auto) Upton % (Auto) Eos % (Auto) Baso % (Auto) Immature Gran # (Auto) Neut # (Auto) Lymph # (Auto) Upton # (Auto) Eos # (Auto) Baso # (Auto) Absolute Nucleated RBC Nucleated RBC % (auto) Toxic Granulation Toxic Vacuolation Dohle Bodies Platelet Estimate Giant Platelets Polychromasia Poikilocytosis Anisocytosis Spherocytes PT INR APTT PTT Ratio ABG pH ABG pCO2 ABG pO2 ABG HCO3 ABG O2 Saturation ABG Base Excess Kaleb Test Barometric Pressure Oxygen Given Sodium Potassium Chloride Carbon Dioxide Anion Gap BUN Creatinine Est Cr Clr Drug Dosing Est GFR ( Amer) Est GFR (Non-Af Amer) BUN/Creatinine Ratio Glucose POC Glucose 208 H 168 H Lactate Calcium Ionized Calcium Phosphorus Magnesium Total Bilirubin Direct Bilirubin AST ALT Alkaline Phosphatase Total Creatine Kinase Troponin I NT-Pro-B Natriuret Pep Total Protein Albumin Globulin Albumin/Globulin Ratio Prealbumin Lipase 25-OH Vitamin D Total Beta-Hydroxybutyric Acd Procalcitonin PTH Intact Urine Color Urine Appearance Urine pH Ur Specific Philipp Urine Protein Urine Glucose (UA) Urine Ketones Urine Blood Urine Nitrite Urine Bilirubin Urine Urobilinogen Ur Leukocyte Esterase Urine WBC (Auto) Urine RBC (Auto) U Hyaline Cast (Auto) U Epithel Cells (Auto) Urine Bacteria (Auto) Ur Renal Epithelial Cell Granular Casts Urine Yeast Nasal Screen MRSA (PCR) Varicella-Zoster Source VZV DNA (PCR) Bld Cult Staph aureus PCR Blood Culture MRSA PCR Blood Type Antibody Screen Crossmatch Transfusion React Date Transfusion React Time Tx React Symptoms Reaction Clerical Check Lab Clerical Err Check React Component Return Volume Returned Pre-Trans Blood Type Pre-Trans Vis Hemolysis Pre-Trans VEGA Pre-Trans VEGA IgG Pre-Trans VEGA Poly Pre-Trans VEGA C3b, C3d Post-Trans Blood Type Post-Tx Visible Hemolys Post-Trans VEGA Post-Trans VEGA IgG Post-Trans VEGA Poly Post-Trans VEGA C3b, C3d Post-Trans Ur Hemoglobin Reaction Path Interpret Transfusion Serv Com 06/28/18 06/28/18 06/29/18 19:14 20:29 04:49 WBC RBC Hgb 7.0 L Hct 22.6 L MCV MCH MCHC RDW Std Deviation RDW Coeff of Yariel Plt Count MPV Immature Gran % (Auto) Neut % (Auto) Lymph % (Auto) Upton % (Auto) Eos % (Auto) Baso % (Auto) Immature Gran # (Auto) Neut # (Auto) Lymph # (Auto) Upton # (Auto) Eos # (Auto) Baso # (Auto) Absolute Nucleated RBC Nucleated RBC % (auto) Toxic Granulation Toxic Vacuolation Dohle Bodies Platelet Estimate Giant Platelets Polychromasia Poikilocytosis Anisocytosis Spherocytes PT INR APTT 49.6 H* PTT Ratio 1.8 ABG pH ABG pCO2 ABG pO2 ABG HCO3 ABG O2 Saturation ABG Base Excess Kaleb Test Barometric Pressure Oxygen Given Sodium Potassium Chloride Carbon Dioxide Anion Gap BUN Creatinine Est Cr Clr Drug Dosing Est GFR ( Amer) Est GFR (Non-Af Amer) BUN/Creatinine Ratio Glucose POC Glucose 110 H Lactate Calcium Ionized Calcium Phosphorus Magnesium Total Bilirubin Direct Bilirubin AST ALT Alkaline Phosphatase Total Creatine Kinase Troponin I NT-Pro-B Natriuret Pep Total Protein Albumin Globulin Albumin/Globulin Ratio Prealbumin Lipase 25-OH Vitamin D Total Beta-Hydroxybutyric Acd Procalcitonin PTH Intact Urine Color Urine Appearance Urine pH Ur Specific Philipp Urine Protein Urine Glucose (UA) Urine Ketones Urine Blood Urine Nitrite Urine Bilirubin Urine Urobilinogen Ur Leukocyte Esterase Urine WBC (Auto) Urine RBC (Auto) U Hyaline Cast (Auto) U Epithel Cells (Auto) Urine Bacteria (Auto) Ur Renal Epithelial Cell Granular Casts Urine Yeast Nasal Screen MRSA (PCR) Varicella-Zoster Source VZV DNA (PCR) Bld Cult Staph aureus PCR Blood Culture MRSA PCR Blood Type Antibody Screen Crossmatch Transfusion React Date Transfusion React Time Tx React Symptoms Reaction Clerical Check Lab Clerical Err Check React Component Return Volume Returned Pre-Trans Blood Type Pre-Trans Vis Hemolysis Pre-Trans VEGA Pre-Trans VEGA IgG Pre-Trans VEGA Poly Pre-Trans VEGA C3b, C3d Post-Trans Blood Type Post-Tx Visible Hemolys Post-Trans VEGA Post-Trans VEGA IgG Post-Trans VEGA Poly Post-Trans VEGA C3b, C3d Post-Trans Ur Hemoglobin Reaction Path Interpret Transfusion Serv Com 06/29/18 06/29/18 06/29/18 04:49 04:49 06:44 WBC 5.89 RBC 2.21 L Hgb 6.8 L* Hct 22.2 L MCV 100.5 H MCH 30.8 MCHC 30.6 L RDW Std Deviation 77.6 H RDW Coeff of Yariel 22.1 H Plt Count 177 MPV 10.0 Immature Gran % (Auto) 3.4 Neut % (Auto) 74.7 Lymph % (Auto) 13.1 Upton % (Auto) 7.3 Eos % (Auto) 1.0 Baso % (Auto) 0.5 Immature Gran # (Auto) 0.20 H Neut # (Auto) 4.40 Lymph # (Auto) 0.77 L Upton # (Auto) 0.43 Eos # (Auto) 0.06 Baso # (Auto) 0.03 Absolute Nucleated RBC 0.06 H Nucleated RBC % (auto) 1.0 Toxic Granulation Toxic Vacuolation Dohle Bodies Platelet Estimate Giant Platelets Polychromasia 1+ Poikilocytosis Anisocytosis Present Spherocytes Occasional PT INR APTT PTT Ratio ABG pH ABG pCO2 ABG pO2 ABG HCO3 ABG O2 Saturation ABG Base Excess Kaleb Test Barometric Pressure Oxygen Given Sodium 142 Potassium 3.5 Chloride 108 H Carbon Dioxide 31 Anion Gap 4.0 BUN 18 Creatinine 0.89 Est Cr Clr Drug Dosing 63.2 Est GFR ( Amer) 75.6 Est GFR (Non-Af Amer) 65.2 BUN/Creatinine Ratio 20.5 H Glucose 100 H POC Glucose Lactate Calcium 7.7 L Ionized Calcium Phosphorus 2.8 Magnesium 2.0 Total Bilirubin 0.5 Direct Bilirubin AST 35 ALT 73 Alkaline Phosphatase 113 Total Creatine Kinase Troponin I NT-Pro-B Natriuret Pep Total Protein 5.3 L Albumin 1.9 L Globulin 3.4 Albumin/Globulin Ratio 0.6 L Prealbumin Lipase 25-OH Vitamin D Total Beta-Hydroxybutyric Acd Procalcitonin PTH Intact Urine Color Urine Appearance Urine pH Ur Specific Philipp Urine Protein Urine Glucose (UA) Urine Ketones Urine Blood Urine Nitrite Urine Bilirubin Urine Urobilinogen Ur Leukocyte Esterase Urine WBC (Auto) Urine RBC (Auto) U Hyaline Cast (Auto) U Epithel Cells (Auto) Urine Bacteria (Auto) Ur Renal Epithelial Cell Granular Casts Urine Yeast Nasal Screen MRSA (PCR) Varicella-Zoster Source VZV DNA (PCR) Bld Cult Staph aureus PCR Blood Culture MRSA PCR Blood Type A Positive Antibody Screen NEGATIVE Crossmatch See Detail Transfusion React Date Transfusion React Time Tx React Symptoms Reaction Clerical Check Lab Clerical Err Check React Component Return Volume Returned Pre-Trans Blood Type Pre-Trans Vis Hemolysis Pre-Trans VEGA Pre-Trans VEGA IgG Pre-Trans VEGA Poly Pre-Trans VEGA C3b, C3d Post-Trans Blood Type Post-Tx Visible Hemolys Post-Trans VEGA Post-Trans VEGA IgG Post-Trans VEGA Poly Post-Trans VEGA C3b, C3d Post-Trans Ur Hemoglobin Reaction Path Interpret Transfusion Serv Com 06/29/18 06/29/18 06/29/18 07:07 11:02 15:54 WBC RBC Hgb Hct MCV MCH MCHC RDW Std Deviation RDW Coeff of Yariel Plt Count MPV Immature Gran % (Auto) Neut % (Auto) Lymph % (Auto) Upton % (Auto) Eos % (Auto) Baso % (Auto) Immature Gran # (Auto) Neut # (Auto) Lymph # (Auto) Upton # (Auto) Eos # (Auto) Baso # (Auto) Absolute Nucleated RBC Nucleated RBC % (auto) Toxic Granulation Toxic Vacuolation Dohle Bodies Platelet Estimate Giant Platelets Polychromasia Poikilocytosis Anisocytosis Spherocytes PT 10.5 INR 1.0 APTT PTT Ratio ABG pH ABG pCO2 ABG pO2 ABG HCO3 ABG O2 Saturation ABG Base Excess Kaleb Test Barometric Pressure Oxygen Given Sodium Potassium Chloride Carbon Dioxide Anion Gap BUN Creatinine Est Cr Clr Drug Dosing Est GFR ( Amer) Est GFR (Non-Af Amer) BUN/Creatinine Ratio Glucose POC Glucose 147 H 187 H Lactate Calcium Ionized Calcium Phosphorus Magnesium Total Bilirubin Direct Bilirubin AST ALT Alkaline Phosphatase Total Creatine Kinase Troponin I NT-Pro-B Natriuret Pep Total Protein Albumin Globulin Albumin/Globulin Ratio Prealbumin Lipase 25-OH Vitamin D Total Beta-Hydroxybutyric Acd Procalcitonin PTH Intact Urine Color Urine Appearance Urine pH Ur Specific Philipp Urine Protein Urine Glucose (UA) Urine Ketones Urine Blood Urine Nitrite Urine Bilirubin Urine Urobilinogen Ur Leukocyte Esterase Urine WBC (Auto) Urine RBC (Auto) U Hyaline Cast (Auto) U Epithel Cells (Auto) Urine Bacteria (Auto) Ur Renal Epithelial Cell Granular Casts Urine Yeast Nasal Screen MRSA (PCR) Varicella-Zoster Source VZV DNA (PCR) Bld Cult Staph aureus PCR Blood Culture MRSA PCR Blood Type Antibody Screen Crossmatch Transfusion React Date Transfusion React Time Tx React Symptoms Reaction Clerical Check Lab Clerical Err Check React Component Return Volume Returned Pre-Trans Blood Type Pre-Trans Vis Hemolysis Pre-Trans VEGA Pre-Trans VEGA IgG Pre-Trans VEGA Poly Pre-Trans VEGA C3b, C3d Post-Trans Blood Type Post-Tx Visible Hemolys Post-Trans VEGA Post-Trans VEGA IgG Post-Trans VEGA Poly Post-Trans VEGA C3b, C3d Post-Trans Ur Hemoglobin Reaction Path Interpret Transfusion Serv Com 06/29/18 06/29/18 06/30/18 16:29 20:35 03:31 WBC 5.95 RBC 2.67 L Hgb 8.1 L Hct 26.0 L MCV 97.4 MCH 30.3 MCHC 31.2 L RDW Std Deviation 67.8 H RDW Coeff of Yariel 22.0 H Plt Count 187 MPV 10.1 Immature Gran % (Auto) Neut % (Auto) Lymph % (Auto) Upton % (Auto) Eos % (Auto) Baso % (Auto) Immature Gran # (Auto) Neut # (Auto) Lymph # (Auto) Upton # (Auto) Eos # (Auto) Baso # (Auto) Absolute Nucleated RBC 0.13 H Nucleated RBC % (auto) 2.3 Toxic Granulation Toxic Vacuolation Dohle Bodies Platelet Estimate Giant Platelets Polychromasia Poikilocytosis Anisocytosis Spherocytes PT INR APTT PTT Ratio ABG pH ABG pCO2 ABG pO2 ABG HCO3 ABG O2 Saturation ABG Base Excess Kaleb Test Barometric Pressure Oxygen Given Sodium Potassium Chloride Carbon Dioxide Anion Gap BUN Creatinine Est Cr Clr Drug Dosing Est GFR ( Amer) Est GFR (Non-Af Amer) BUN/Creatinine Ratio Glucose POC Glucose 127 H 147 H Lactate Calcium Ionized Calcium Phosphorus Magnesium Total Bilirubin Direct Bilirubin AST ALT Alkaline Phosphatase Total Creatine Kinase Troponin I NT-Pro-B Natriuret Pep Total Protein Albumin Globulin Albumin/Globulin Ratio Prealbumin Lipase 25-OH Vitamin D Total Beta-Hydroxybutyric Acd Procalcitonin PTH Intact Urine Color Urine Appearance Urine pH Ur Specific Philipp Urine Protein Urine Glucose (UA) Urine Ketones Urine Blood Urine Nitrite Urine Bilirubin Urine Urobilinogen Ur Leukocyte Esterase Urine WBC (Auto) Urine RBC (Auto) U Hyaline Cast (Auto) U Epithel Cells (Auto) Urine Bacteria (Auto) Ur Renal Epithelial Cell Granular Casts Urine Yeast Nasal Screen MRSA (PCR) Varicella-Zoster Source VZV DNA (PCR) Bld Cult Staph aureus PCR Blood Culture MRSA PCR Blood Type Antibody Screen Crossmatch Transfusion React Date Transfusion React Time Tx React Symptoms Reaction Clerical Check Lab Clerical Err Check React Component Return Volume Returned Pre-Trans Blood Type Pre-Trans Vis Hemolysis Pre-Trans VEGA Pre-Trans VEGA IgG Pre-Trans VEGA Poly Pre-Trans VEGA C3b, C3d Post-Trans Blood Type Post-Tx Visible Hemolys Post-Trans VEGA Post-Trans VEGA IgG Post-Trans VEGA Poly Post-Trans VEGA C3b, C3d Post-Trans Ur Hemoglobin Reaction Path Interpret Transfusion Serv Com 06/30/18 06/30/18 06/30/18 03:31 03:31 07:06 WBC RBC Hgb Hct MCV MCH MCHC RDW Std Deviation RDW Coeff of Yariel Plt Count MPV Immature Gran % (Auto) Neut % (Auto) Lymph % (Auto) Upton % (Auto) Eos % (Auto) Baso % (Auto) Immature Gran # (Auto) Neut # (Auto) Lymph # (Auto) Upton # (Auto) Eos # (Auto) Baso # (Auto) Absolute Nucleated RBC Nucleated RBC % (auto) Toxic Granulation Toxic Vacuolation Dohle Bodies Platelet Estimate Giant Platelets Polychromasia Poikilocytosis Anisocytosis Spherocytes PT INR APTT 56.9 H* PTT Ratio 2.1 ABG pH ABG pCO2 ABG pO2 ABG HCO3 ABG O2 Saturation ABG Base Excess Kaleb Test Barometric Pressure Oxygen Given Sodium 143 Potassium 3.7 Chloride 110 H Carbon Dioxide 30 Anion Gap 3.0 BUN 16 Creatinine 0.85 Est Cr Clr Drug Dosing 66.1 Est GFR ( Amer) 79.9 Est GFR (Non-Af Amer) 68.9 BUN/Creatinine Ratio 19.1 Glucose 91 POC Glucose 113 H Lactate Calcium 7.6 L Ionized Calcium Phosphorus Magnesium 2.0 Total Bilirubin Direct Bilirubin AST ALT Alkaline Phosphatase Total Creatine Kinase Troponin I NT-Pro-B Natriuret Pep Total Protein Albumin Globulin Albumin/Globulin Ratio Prealbumin Lipase 25-OH Vitamin D Total Beta-Hydroxybutyric Acd Procalcitonin PTH Intact Urine Color Urine Appearance Urine pH Ur Specific Philipp Urine Protein Urine Glucose (UA) Urine Ketones Urine Blood Urine Nitrite Urine Bilirubin Urine Urobilinogen Ur Leukocyte Esterase Urine WBC (Auto) Urine RBC (Auto) U Hyaline Cast (Auto) U Epithel Cells (Auto) Urine Bacteria (Auto) Ur Renal Epithelial Cell Granular Casts Urine Yeast Nasal Screen MRSA (PCR) Varicella-Zoster Source VZV DNA (PCR) Bld Cult Staph aureus PCR Blood Culture MRSA PCR Blood Type Antibody Screen Crossmatch Transfusion React Date Transfusion React Time Tx React Symptoms Reaction Clerical Check Lab Clerical Err Check React Component Return Volume Returned Pre-Trans Blood Type Pre-Trans Vis Hemolysis Pre-Trans VEGA Pre-Trans VEGA IgG Pre-Trans VEGA Poly Pre-Trans VEGA C3b, C3d Post-Trans Blood Type Post-Tx Visible Hemolys Post-Trans VEGA Post-Trans VEGA IgG Post-Trans VEGA Poly Post-Trans VEGA C3b, C3d Post-Trans Ur Hemoglobin Reaction Path Interpret Transfusion Serv Com 06/30/18 06/30/18 06/30/18 11:28 16:20 20:25 WBC RBC Hgb Hct MCV MCH MCHC RDW Std Deviation RDW Coeff of Yariel Plt Count MPV Immature Gran % (Auto) Neut % (Auto) Lymph % (Auto) Upton % (Auto) Eos % (Auto) Baso % (Auto) Immature Gran # (Auto) Neut # (Auto) Lymph # (Auto) Upton # (Auto) Eos # (Auto) Baso # (Auto) Absolute Nucleated RBC Nucleated RBC % (auto) Toxic Granulation Toxic Vacuolation Dohle Bodies Platelet Estimate Giant Platelets Polychromasia Poikilocytosis Anisocytosis Spherocytes PT INR APTT PTT Ratio ABG pH ABG pCO2 ABG pO2 ABG HCO3 ABG O2 Saturation ABG Base Excess Kaleb Test Barometric Pressure Oxygen Given Sodium Potassium Chloride Carbon Dioxide Anion Gap BUN Creatinine Est Cr Clr Drug Dosing Est GFR ( Amer) Est GFR (Non-Af Amer) BUN/Creatinine Ratio Glucose POC Glucose 143 H 104 H 152 H Lactate Calcium Ionized Calcium Phosphorus Magnesium Total Bilirubin Direct Bilirubin AST ALT Alkaline Phosphatase Total Creatine Kinase Troponin I NT-Pro-B Natriuret Pep Total Protein Albumin Globulin Albumin/Globulin Ratio Prealbumin Lipase 25-OH Vitamin D Total Beta-Hydroxybutyric Acd Procalcitonin PTH Intact Urine Color Urine Appearance Urine pH Ur Specific Philipp Urine Protein Urine Glucose (UA) Urine Ketones Urine Blood Urine Nitrite Urine Bilirubin Urine Urobilinogen Ur Leukocyte Esterase Urine WBC (Auto) Urine RBC (Auto) U Hyaline Cast (Auto) U Epithel Cells (Auto) Urine Bacteria (Auto) Ur Renal Epithelial Cell Granular Casts Urine Yeast Nasal Screen MRSA (PCR) Varicella-Zoster Source VZV DNA (PCR) Bld Cult Staph aureus PCR Blood Culture MRSA PCR Blood Type Antibody Screen Crossmatch Transfusion React Date Transfusion React Time Tx React Symptoms Reaction Clerical Check Lab Clerical Err Check React Component Return Volume Returned Pre-Trans Blood Type Pre-Trans Vis Hemolysis Pre-Trans VEGA Pre-Trans VEGA IgG Pre-Trans VEGA Poly Pre-Trans VEGA C3b, C3d Post-Trans Blood Type Post-Tx Visible Hemolys Post-Trans VEGA Post-Trans VEGA IgG Post-Trans VEGA Poly Post-Trans VEGA C3b, C3d Post-Trans Ur Hemoglobin Reaction Path Interpret Transfusion Serv Com 07/01/18 07/01/18 07/01/18 06:43 06:43 06:43 WBC 6.28 RBC 2.63 L Hgb 8.2 L Hct 26.2 L MCV 99.6 MCH 31.2 MCHC 31.3 L RDW Std Deviation 75.0 H RDW Coeff of Yariel 22.6 H Plt Count 201 MPV 10.2 Immature Gran % (Auto) Neut % (Auto) Lymph % (Auto) Upton % (Auto) Eos % (Auto) Baso % (Auto) Immature Gran # (Auto) Neut # (Auto) Lymph # (Auto) Upton # (Auto) Eos # (Auto) Baso # (Auto) Absolute Nucleated RBC 0.12 H Nucleated RBC % (auto) 1.9 Toxic Granulation Toxic Vacuolation Dohle Bodies Platelet Estimate Giant Platelets Polychromasia Poikilocytosis Anisocytosis Spherocytes PT 10.9 INR 1.1 APTT PTT Ratio ABG pH ABG pCO2 ABG pO2 ABG HCO3 ABG O2 Saturation ABG Base Excess Kaleb Test Barometric Pressure Oxygen Given Sodium 143 Potassium 4.1 Chloride 112 H Carbon Dioxide 27 Anion Gap 4.0 BUN 16 Creatinine 0.79 Est Cr Clr Drug Dosing 70.7 Est GFR ( Amer) 87.3 Est GFR (Non-Af Amer) 75.3 BUN/Creatinine Ratio 20.0 Glucose 112 H POC Glucose Lactate Calcium 8.0 L Ionized Calcium Phosphorus Magnesium Total Bilirubin Direct Bilirubin AST ALT Alkaline Phosphatase Total Creatine Kinase Troponin I NT-Pro-B Natriuret Pep Total Protein Albumin Globulin Albumin/Globulin Ratio Prealbumin Lipase 25-OH Vitamin D Total Beta-Hydroxybutyric Acd Procalcitonin PTH Intact Urine Color Urine Appearance Urine pH Ur Specific Philipp Urine Protein Urine Glucose (UA) Urine Ketones Urine Blood Urine Nitrite Urine Bilirubin Urine Urobilinogen Ur Leukocyte Esterase Urine WBC (Auto) Urine RBC (Auto) U Hyaline Cast (Auto) U Epithel Cells (Auto) Urine Bacteria (Auto) Ur Renal Epithelial Cell Granular Casts Urine Yeast Nasal Screen MRSA (PCR) Varicella-Zoster Source VZV DNA (PCR) Bld Cult Staph aureus PCR Blood Culture MRSA PCR Blood Type Antibody Screen Crossmatch Transfusion React Date Transfusion React Time Tx React Symptoms Reaction Clerical Check Lab Clerical Err Check React Component Return Volume Returned Pre-Trans Blood Type Pre-Trans Vis Hemolysis Pre-Trans VEGA Pre-Trans VEGA IgG Pre-Trans VEGA Poly Pre-Trans VEGA C3b, C3d Post-Trans Blood Type Post-Tx Visible Hemolys Post-Trans VEGA Post-Trans VEGA IgG Post-Trans VEGA Poly Post-Trans VEGA C3b, C3d Post-Trans Ur Hemoglobin Reaction Path Interpret Transfusion Serv Com 07/01/18 07:15 WBC RBC Hgb Hct MCV MCH MCHC RDW Std Deviation RDW Coeff of Yariel Plt Count MPV Immature Gran % (Auto) Neut % (Auto) Lymph % (Auto) Upton % (Auto) Eos % (Auto) Baso % (Auto) Immature Gran # (Auto) Neut # (Auto) Lymph # (Auto) Upton # (Auto) Eos # (Auto) Baso # (Auto) Absolute Nucleated RBC Nucleated RBC % (auto) Toxic Granulation Toxic Vacuolation Dohle Bodies Platelet Estimate Giant Platelets Polychromasia Poikilocytosis Anisocytosis Spherocytes PT INR APTT PTT Ratio ABG pH ABG pCO2 ABG pO2 ABG HCO3 ABG O2 Saturation ABG Base Excess Kaleb Test Barometric Pressure Oxygen Given Sodium Potassium Chloride Carbon Dioxide Anion Gap BUN Creatinine Est Cr Clr Drug Dosing Est GFR ( Amer) Est GFR (Non-Af Amer) BUN/Creatinine Ratio Glucose POC Glucose 124 H Lactate Calcium Ionized Calcium Phosphorus Magnesium Total Bilirubin Direct Bilirubin AST ALT Alkaline Phosphatase Total Creatine Kinase Troponin I NT-Pro-B Natriuret Pep Total Protein Albumin Globulin Albumin/Globulin Ratio Prealbumin Lipase 25-OH Vitamin D Total Beta-Hydroxybutyric Acd Procalcitonin PTH Intact Urine Color Urine Appearance Urine pH Ur Specific Philipp Urine Protein Urine Glucose (UA) Urine Ketones Urine Blood Urine Nitrite Urine Bilirubin Urine Urobilinogen Ur Leukocyte Esterase Urine WBC (Auto) Urine RBC (Auto) U Hyaline Cast (Auto) U Epithel Cells (Auto) Urine Bacteria (Auto) Ur Renal Epithelial Cell Granular Casts Urine Yeast Nasal Screen MRSA (PCR) Varicella-Zoster Source VZV DNA (PCR) Bld Cult Staph aureus PCR Blood Culture MRSA PCR Blood Type Antibody Screen Crossmatch Transfusion React Date Transfusion React Time Tx React Symptoms Reaction Clerical Check Lab Clerical Err Check React Component Return Volume Returned Pre-Trans Blood Type Pre-Trans Vis Hemolysis Pre-Trans VEGA Pre-Trans VEGA IgG Pre-Trans VEGA Poly Pre-Trans VEGA C3b, C3d Post-Trans Blood Type Post-Tx Visible Hemolys Post-Trans VEGA Post-Trans VEGA IgG Post-Trans VEGA Poly Post-Trans VEGA C3b, C3d Post-Trans Ur Hemoglobin Reaction Path Interpret Transfusion Serv Com Chemistry 06/30/18 07/01/18 03:31 06:43 Sodium 143 143 Potassium 3.7 4.1 Chloride 110 H 112 H Carbon Dioxide 30 27 Anion Gap 3.0 4.0 BUN 16 16 Creatinine 0.85 0.79 Glucose 91 112 H (1) Pulmonary embolism Acute cor pulmonale presence: without acute cor pulmonale Chronicity: unspecified Pulmonary embolism type: saddle Qualified Code(s): I26.92 - Saddle embolus of pulmonary artery without acute cor pulmonale
[2018-07-02 06:52] LABS: Hematocrit (blood only) 25.2 % (37-47); Hemoglobin 7.8 g/dL (12.0-16.0); Mean Corpuscular Volume 98.4 fL (80-100); Mean Platelet Volume 9.6 fL (7.4-10.4); Nucleated RBC % (auto) 1.5 %; Platelet Count 191 K/uL (130-400); RDW Coefficient of Variation 22.5 % (11.5-14.5); RDW Standard Deviation 75.3 fL (36.4-46.3); Red Blood Count 2.56 M/uL (4.2-5.4)
[2018-07-02 07:17] LABS: INR 1.1 (0.9-1.1); Prothrombin Time 11.4 Seconds (9.0-12.0)
[2018-07-02 07:26] LABS: BUN Creatinine Ratio 19.5 (10-20); Calcium 7.7 mg/dl (8.5-10.1); Creatinine Clr Calc Pharmacy 70.2 ml/min; Est GFR (African American) 79.9; Est GFR (Non-African American) 68.9; Potassium 3.8 mmol/L (3.5-5.1)
--- NOTE | 2018-07-02 09:35 | Hospitalist Progress Note ---
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 Vascular surgery said no need for IVC filter. Add Lasix 40 IV Daily for her edema. Hematology on case. Currently she is not bleeding, but is transfusion dependent. Hb 7.8 today. 5th transfusion 06/29. Continue supplemental oxygen 3L NC for persistent hypoxia. Continue Lisinopril. Continue anticoagulation plan per hematology, Increase warfarin today. Ultimately transfer to [facility] on 07/03. Continue Sprycel for treatment of ALL. CODE STATUS changed to DO NOT RESUSCITATE Disposition-DC to [facility] if Hb stable 07/03 Subjective Nauseous today, eating, Hb down today ROS-No Headache, No Visual Changes, No Nausea, No Vomiting, No Fever, No Chills, No Neck Pain or Stiffness, No Chest Pain, No Palpitations, No SOB, No LINARES, No Cough, No Sputum, No Wheezing, No Abdominal Pain, No Diarrhea, No Hematemesis, No Hemoptysis, No Unexpected Weight Loss, No Flank pain, No Melena, No Hematochezia, No Frequency, No Urgency, No Burning, No Hematuria, No Rashes, No Diaphoresis. Appetite is better, wants to walk, weak Physical Exam Gen-AAO x 3, NAD, Afebrile, looks miserable Head-NCAT, EOMI, PERRLA, Anicteric Sclera, No Posterior Pharyngeal Erythema Neck-Supple, No JVD, No Thyromegaly, No Masses, No LAD, No Bruits Lungs-Clear to Auscultation Bilaterally, No Rales, No Rhonchi, No Wheezing, No Crepitus Chest-No S4, +S1, +S2, No S3, No Murmurs, No Rubs, No Gallops, No Ectopy Abdomen-Soft, Bowel Sounds Present, Non Tender, Non Distended, No Hepatomegaly, No Splenomegaly, No Palpable Masses, No Rebound, No Rigidity, No Guarding Musculoskeletal-Full Range of Motion Bilaterally, No CVAT Extremities-No Cyanosis, No Clubbing, 2+ Edema Bilaterally Nuero-Cranial Nerves II-XII grossly intact, Motor WNL, DTRs WNL, Strength WNL, Non Focal Psych-Normal Mood Physical Exam Vital Signs (Past 24 Hours): Last Vital Signs Temp 36.4 C L 07/02/18 07:13 Pulse 74 07/02/18 07:13 Resp 14 07/02/18 07:13 BP 128/57 L 07/02/18 07:13 Pulse Ox 92 07/02/18 07:13 Results & Data Laboratory Results Reviewed (1) Pulmonary embolism Pulmonary embolism type: saddle Chronicity: unspecified Acute cor pulmonale presence: without acute cor pulmonale Qualified Code(s): I26.92 - Saddle embolus of pulmonary artery without acute cor pulmonale
[2018-07-03 06:23] LABS: Hematocrit (blood only) 24.6 % (37-47); Hemoglobin 7.4 g/dL (12.0-16.0); Mean Corpuscular Hgb Conc 30.1 g/dL (32-36); Mean Corpuscular Volume 100.4 fL (80-100); Mean Platelet Volume 9.7 fL (7.4-10.4); Nucleated RBC # (auto) 0.09 K/uL (0-0); Nucleated RBC % (auto) 1.6 %; Platelet Count 203 K/uL (130-400); RDW Coefficient of Variation 22.8 % (11.5-14.5); Red Blood Count 2.45 M/uL (4.2-5.4); White Blood Count 5.47 K/uL (4.8-10.8)
[2018-07-03 06:41] LABS: INR 1.7 (0.9-1.1); Prothrombin Time 16.4 Seconds (9.0-12.0)
[2018-07-03 06:54] LABS: BUN Creatinine Ratio 16.8 (10-20); Calcium 7.9 mg/dl (8.5-10.1); Creatinine Clr Calc Pharmacy 62.7 ml/min; Est GFR (African American) 69.8; Est GFR (Non-African American) 60.3; Potassium 3.7 mmol/L (3.5-5.1)
[2018-07-03 06:57] LABS: Albumin Globulin Ratio 0.6 (0.9-2); Bilirubin,Total 0.4 mg/dl (0.2-1); Globulin 3.2 gm/dl (2.5-4.0); Total Protein 5.2 gm/dl (6.4-8.2)
--- NOTE | 2018-07-03 09:51 | Discharge Summary ---
Date of Service July 03, 2018 Admission HPI Per Admitting Provider This is a 72-year-old woman with multiple medical conditions including diabetes, chronic kidney disease stage III, COPD, hypertension, dyslipidemia, GERD and admitted with lower extremity cellulitis, ALL and anemia. As she has progressed over the last 8 days, she is more functional, able to get out of bed with some assistance and is able to use the bedside commode independently but generally is not yet able to take care of herself. It is being recommended she go to a residential facility. We have been consulted to evaluate depression and anxiety. At the time I see the patient, she is seated in her bed. She is alert and cooperative with the interview. She is completely oriented. I asked how long she has been on Lexapro 5 mg and she says that she does not know. She also does not know who started it. She denies that she has been depressed and denies that depression played any part in her poor condition at home prior to admission. She denies that she is a chronically anxious person and says she is not worrying now. She denies that she has suicidal thoughts at any point and denies any psychiatric needs at this time. Admission Exam Per Admitting Provider Constitutional: WD/WN, vitals as above Eyes: PERRL, conjunctivae normal, anicteric sclerae ENMT: external ear and nose normal, oropharynx normal Respiratory: normal respiratory effort; no respiratory distress Auscultation: + diminished lung sounds Cardiovascular: Rate/Rhythm: regular rate and regular rhythm Vessels: normal peripheral pulses Extremities: + edema (+3 pitting edema BLE) Gastrointestinal (Abdomen): normal bowel sounds, soft, nontender, no hepatosplenomegaly Musculoskeletal: Extremities: + abnormal strength (Patient generally weak (strength 3-4/5) throughout all extremities), no cyanosis and no clubbing Skin: Mild redness noted to BLE, right greater than left; right lower extremity warm to touch Neurologic: PERRL, EOMI, accommodation nl, no face palsy, no dysarthria Psychiatric: Orientation: alert and oriented x 3 Affect: + depressed affect Insight: + poor insight Principal Diagnosis ALL MRSA Cellulitis PE Hypoxic Resp failure Anemia-6 transfusions while here Obesity HTN Secondary Hypo PTH DM II Zoster CKD 3 HLD GERD OA Discharge Exam ROS-No Headache, No Visual Changes, No Nausea, No Vomiting, No Fever, No Chills, No Neck Pain or Stiffness, No Chest Pain, No Palpitations, No SOB, No LINARES, No Cough, No Sputum, No Wheezing, No Abdominal Pain, No Diarrhea, No Hematemesis, No Hemoptysis, No Unexpected Weight Loss, No Flank pain, No Melena, No Hematochezia, No Frequency, No Urgency, No Burning, No Hematuria, No Rashes, No Diaphoresis. Appetite is better, wants to walk, weak Physical Exam Gen-AAO x 3, NAD, Afebrile, looks miserable Head-NCAT, EOMI, PERRLA, Anicteric Sclera, No Posterior Pharyngeal Erythema Neck-Supple, No JVD, No Thyromegaly, No Masses, No LAD, No Bruits Lungs-Clear to Auscultation Bilaterally, No Rales, No Rhonchi, No Wheezing, No Crepitus Chest-No S4, +S1, +S2, No S3, No Murmurs, No Rubs, No Gallops, No Ectopy Abdomen-Soft, Bowel Sounds Present, Non Tender, Non Distended, No Hepatomegaly, No Splenomegaly, No Palpable Masses, No Rebound, No Rigidity, No Guarding Musculoskeletal-Full Range of Motion Bilaterally, No CVAT Extremities-No Cyanosis, No Clubbing, 2+ Edema Bilaterally Nuero-Cranial Nerves II-XII grossly intact, Motor WNL, DTRs WNL, Strength WNL, Non Focal Psych-Normal Mood Discharge Data Allergies Allergy/AdvReac Type Severity Reaction Status Date / Time No Known Allergies Allergy Verified 06/12/18 17:53 Consultations 06/12/18 19:12 ED Decision to Admit Stat 06/12/18 21:27 Consult Case Management - Discharge Planning Routine 06/13/18 18:37 Consult Oncology Routine 06/14/18 05:22 Consult Infectious Diseases Routine 06/19/18 15:35 Consult Psychiatry Routine 06/25/18 01:17 Consult Weather Stripper Routine 06/25/18 11:07 Consult Palliative Care Routine 06/26/18 07:00 Consult Vascular Surgery Routine Ordered Studies 06/13/18 20:22 US venous doppler LE BI Routine 06/24/18 21:22 CT angio chest PE protocol Urgent 06/25/18 01:17 US venous doppler LE BI Urgent Current Diagnoses Sepsis due to Methicillin resistant Staphylococcus aureus (06/12/18) Other specified sepsis (06/12/18) Zoster without complications (06/12/18) Acute lymphoblastic leukemia not having achieved remission (06/12/18) Anemia, unspecified (06/12/18) Thrombocytopenia, unspecified (06/12/18) Type 2 diabetes mellitus without complications (06/12/18) Vitamin D deficiency, unspecified (06/12/18) Hyperlipidemia, unspecified (06/12/18) Other disorders of phosphorus metabolism (06/12/18) Hypocalcemia (06/12/18) Hypokalemia (06/12/18) Idiopathic sleep related nonobstructive alveolar hypoventilation (06/12/18) Essential (primary) hypertension (06/12/18) Saddle embolus of pulmonary artery without acute cor pulmonale (06/12/18) Chronic obstructive pulmonary disease, unspecified (06/12/18) Acute respiratory failure with hypoxia (06/12/18) Other diseases of bronchus, not elsewhere classified (06/12/18) Gastro-esophageal reflux disease without esophagitis (06/12/18) Cellulitis of unspecified part of limb (06/12/18) Chronic kidney disease, stage 3 (moderate) (06/12/18) Secondary hyperparathyroidism of renal origin (06/12/18) Hypoxemia (06/12/18) Diarrhea, unspecified (06/12/18) Localized edema (06/12/18) Abnormal levels of other serum enzymes (06/12/18) Bacteremia (06/12/18) Unspecified transfusion reaction, initial encounter (06/12/18) Encounter for administrative examinations, unspecified (06/12/18) Other specified counseling (06/12/18) Allergies No Known Allergies Allergy (Verified 06/12/18 17:53) Height/Weight/Isolation Height 5 ft 6 in Weight 94 kg Isolation Type Contact Precautions Chemistry 07/02/18 07/03/18 06:37 05:52 Sodium 143 144 Potassium 3.8 3.7 Chloride 108 H 107 Carbon Dioxide 30 32 Anion Gap 5.0 5.0 BUN 17 16 Creatinine 0.85 0.95 Glucose 125 H 109 H Hospital Course (1) Pulmonary embolism: ACTIVE ISSUES: Bilateral pulmonary embolus Hypoxia Hypertension CKD stage III Diabetes mellitus type 2 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 Vascular surgery said no need for IVC filter. Hematology on case. Currently she is not bleeding, but is transfusion dependent. Hb 7.4 today. 6th transfusion 07/03. Continue supplemental oxygen 3L NC for persistent hypoxia. Continue Lisinopril. Continue anticoagulation plan per hematology, Increase warfarin today. Ultimately transfer to [facility] on 07/03. Continue Sprycel for treatment of ALL. CODE STATUS changed to DO NOT RESUSCITATE Disposition-DC to [facility] after transfusion today Total Time Total Time Spent Total Time Spent (In Minutes): 45 mins Discharge Plan Discharge Items Patient Disposition: Trans Resident Long-Term Care Reason For Visit: CELLULITIS GENERALIZED WEAKNESS Discharge Diagnosis: ALL MRSA Cellulitis PE Hypoxic Resp failure Anemia-6 transfusions while here Obesity HTN Secondary Hypo PTH DM II Zoster CKD 3 HLD GERD OA Condition: Fair Discharge Goals: Decrease discomfort and Improve function Specific Goals: Needs EOL Planning Activity: As commented below Activity Comment: As Tolerated Lifting: None Bathing: No limitations Exercise/Sports: None Weightbearing Comment: As Tolerated Non-emergency contact: Primary Care Provider and Oncologist Call non-emergency contact if: you have any medication questions Diet: Carb Consistent or DM2 and Heart Healthy Addtl Provider Instructions: Transfusions in [facility] at [facility] as needed, Hospice/Home Pall care eval Prescriptions: New warfarin [Coumadin] 5 mg Tablet 5 mg PO DAILY@1600 Qty: 30 RF: 0 acetaminophen [Mapap (acetaminophen)] 325 mg Tablet 650 mg PO Q4H PRN (Reason: fever or pain) Qty: 100 RF: 0 metoprolol succinate 50 mg Tablet Extended Release 24 Hr 50 mg PO BID Qty: 60 RF: 0 lisinopril [Zestril] 10 mg Tablet 10 mg PO BID Qty: 60 RF: 0 Continued atorvastatin 40 mg Tablet 40 mg PO HS RF: 0 fluticasone-salmeterol [Advair Diskus] 250-50 mcg/dose Blister With Device 1 inh INHALATION BID RF: 0 tramadol 50 mg Tablet 50 mg PO Q6H PRN (Reason: Pain) RF: 0 omeprazole 20 mg Capsule,Delayed Release(Dr/Ec) 20 mg PO BID RF: 0 acyclovir 400 mg Tablet 400 mg PO BID RF: 0 allopurinol 300 mg Tablet 300 mg PO DAILY RF: 0 nitroglycerin [Nitrostat] 0.4 mg Tablet, Sublingual 0.4 mg Sublingual DIRECTED PRN (Reason: Chest Pain) RF: 0 bumetanide 1 mg Tablet 1 mg PO BID RF: 0 insulin aspart U-100 100 unit/mL Cartridge 6 units SUBCUT TIDM RF: 0 insulin detemir U-100 [Levemir U-100 Insulin] 100 unit/mL Solution 18 units SUBCUT QAM RF: 0 insulin detemir U-100 [Levemir FlexTouch U-100 Insuln] 100 unit/mL (3 mL) Insulin Pen 14 units SUBCUT QPM RF: 0 escitalopram oxalate 5 mg Tablet 5 mg PO DAILY RF: 0 [id number]-Ca carb-vit K [Women's Multivitamin] 18 mg iron-400 mcg-500 mg Tablet 1 tab PO DAILY RF: 0 dasatinib [Sprycel] 70 mg Tablet 70 mg PO BID RF: 0 dapsone 100 mg Tablet 100 mg PO DAILY RF: 0 albuterol sulfate 90 mcg/actuation Hfa Aerosol Inhaler 2 puff INHALATION Q6H PRN (Reason: Shortness Of Breath) RF: 0 Discontinued fluconazole 200 mg Tablet 400 mg PO DAILY RF: 0 metoprolol succinate 25 mg Tablet Extended Release 24 Hr 25 mg PO DAILY RF: 0 dextrose [Glutose 15] 40 % Gel 1 ea PO DIRECTED PRN (Reason: Hypoglycemia) RF: 0 prednisone 20 mg Tablet See Rx Instructions .ROUTE .COMPLEX RF: 0 Stand-Alone Forms: [facility] Discharge Orders: Discharge Order (Routine); Ordered 07/03/18 Ordered By: Nicholas Gray Admission Data Admit Date/Time: 06/12/18 19:46 Attending Provider: Nicholas Gray Admit Provider: Munir Shields Primary Care Provider: Natalia Brambila Other Providers: Nadir Moe ; Ryan Mantilla ; Patricia Fraser ; Mariposa Obregon ; Jett Nam ; Antony Abreu ; Ying Francisco ; Blossom De León ; Jordin Horowitz ; Fernando Romero ; Saira Silva ; Morris Padilla ; Evelin Bautista ; Cesia Rojas ; Ryan Parker ; Tahira Stahl ; Darin Norris I ; Rebecca Ramirez ; Elise Bustamante. ; Tawanna Gonsalves. ; Brendon Harrison ; Andrew Dominique ; Munir Shields Service: Telemetry
--- NOTE | 2018-07-05 12:07 | Coding Query ---
SEPSIS Throughout the medical record, you have clearly documented a localized infection and your patient has clinical evidence of a generalized sepsis or severe sepsis. The term urosepsis is a nonspecific entity and is coded as an UTI. If the patient has sepsis, severe sepsis, from an urinary source or some other source, please clarify in your response below. The medical record reflects the following clinical findings: Patient admitted with cellulitis leg and saddle embolus. 06/26 progress note mentions sepsis - . Subsequent progress notes document bacteremia. Please check below the applicable phrase that documents what was treated during this hospital stay . Thanks for your help! MATT Tejada [facility] ____ (XX )Bacteremia (Nonspecific laboratory finding of bacteria in the blood) Specify Organism MRSA Cellulitis (XX ) Present on Admission ( ) Not present on admission ( ) Unable to clinically determine ( ) Septicemia (Systemic disease associated with the presence of pathogenic microorganisms in the blood): Specify Organism ( ) Present on Admission ( ) Not present on admission ( ) Unable to clinically determine (xx ) Sepsis Specify Organism Specify Associated Condition/Diagnosis (xx ) Present on Admission ( ) Not present on admission ( ) Unable to clinically determine ( ) Severe Sepsis (Sepsis associated with acute organ dysfunction) Specify Organism Specify Associated Condition/Diagnosis ( ) Present on Admission ( ) Not present on admission ( ) Unable to clinically determine ( ) Septic Shock (Severe sepsis with acute circulatory failure, unexplained by other causes) ( ) Present on Admission ( ) Not present on admission ( ) Unable to clinically determine ( ) Other, patient has: MTDD
== END 2018-07-03 14:56 | DRG 871 ==
LOC: ED 16:34 → 2S 19:46 → SUATTDRO 19:46 → 2S 20:30 → 4E 06-18 13:37 → 2E 06-24 18:50 → 1E 06-25 01:10 → 2E 06-26 13:03
DX: J44.9 Chronic obstructive pulmonary disease, unspecified; T38.0X5A Adverse effect of glucocorticoids and synthetic analogues, initial encounter; Y92.009 Unspecified place in unspecified non-institutional (private) residence as the place of occurrence of the external cause; T17.590A Other foreign object in bronchus causing asphyxiation, initial encounter; Z53.29 Procedure and treatment not carried out because of patient's decision for other reasons; M81.0 Age-related osteoporosis without current pathological fracture; R79.89 Other specified abnormal findings of blood chemistry; N18.3 Chronic kidney disease, stage 3 (moderate); E87.6 Hypokalemia; Z87.891 Personal history of nicotine dependence; N25.81 Secondary hyperparathyroidism of renal origin; A41.9 Sepsis, unspecified organism; K21.9 Gastro-esophageal reflux disease without esophagitis; C91.00 Acute lymphoblastic leukemia not having achieved remission; L03.115 Cellulitis of right lower limb; E66.9 Obesity, unspecified; R73.9 Hyperglycemia, unspecified; I26.92 Saddle embolus of pulmonary artery without acute cor pulmonale; I12.9 Hypertensive chronic kidney disease with stage 1 through stage 4 chronic kidney disease, or unspecified chronic kidney disease; D64.9 Anemia, unspecified; E11.22 Type 2 diabetes mellitus with diabetic chronic kidney disease; J96.01 Acute respiratory failure with hypoxia; Z79.4 Long term (current) use of insulin; I24.8 Other forms of acute ischemic heart disease; B95.62 Methicillin resistant Staphylococcus aureus infection as the cause of diseases classified elsewhere; Z66 Do not resuscitate; E83.51 Hypocalcemia; E55.9 Vitamin D deficiency, unspecified

== ENCOUNTER 2018-10-03 23:55 | Inpatient (IN) ==
[2018-10-04] MEDS ORDERED: PHYTONADIONE 5 MG in SODIUM CHLORIDE 0.9% 50 ML IV ONE ×3 (00:12→01:53)
[2018-10-04] MEDS ORDERED: SODIUM CHLORIDE 0.9% 250 ML IV PRN ×3 (00:12→03:21)
[2018-10-04] MEDS ORDERED: SODIUM CHLORIDE 0.9% 1000ML 1,000 ML IV SCH (00:15)
[2018-10-04 00:51] LABS: iSTAT Creatinine 1.4 mg/dl (0.6-1.3); iSTAT Hemoglobin 6.5 g/dl (12.0-16.0); iSTAT Ionized Calcium 1.11 mmol/l (1.12-1.32); iSTAT Potassium 3.7 mEq/L (3.3-5.0)
[2018-10-04 00:52] LABS: Albumin Level 2.6 gm/dl (3.4-5.0); BUN Creatinine Ratio 14.3 (10-20); Calcium 7.8 mg/dl (8.5-10.1); Est GFR (African American) 43.3; Est GFR (Non-African American) 37.4; Magnesium 1.9 mg/dl (1.8-2.4); Potassium 3.7 mmol/L (3.5-5.1)
[2018-10-04 01:03] LABS: Albumin Globulin Ratio 0.9 (0.9-2); Bilirubin,Total 0.3 mg/dl (0.2-1); Globulin 2.9 gm/dl (2.5-4.0); Total Protein 5.5 gm/dl (6.4-8.2)
[2018-10-04 01:15] LABS: T4 Free Thyroxine 0.81 ng/dl (0.8-1.6)
[2018-10-04 01:19] LABS: Prothrombin Time > 90.0 Seconds (9.0-12.0)
[2018-10-04 01:21] LABS: INR > 10.0 (0.9-1.1)
[2018-10-04 01:22] LABS: Basophils # (auto) 0.04 K/uL (0-0.2); Basophils % (auto) 0.7 %; Eosinophils # (auto) 0.16 K/uL (0-0.5); Eosinophils % (auto) 2.8 %; Hematocrit (blood only) 20.7 % (37-47); Hemoglobin 6.4 g/dL (12.0-16.0); Immature Granulocytes # (auto) 0.02 K/uL (0.00-0.02); Immature Granulocytes % (auto) 0.4 %; Lymphocytes # (auto) 1.14 K/uL (1.2-3.4); Mean Corpuscular Hgb Conc 30.9 g/dL (32-36); Mean Corpuscular Volume 109.5 fL (80-100); Mean Platelet Volume 8.7 fL (7.4-10.4); Monocytes # (auto) 0.79 K/uL (0.11-0.59); Monocytes % (auto) 13.9 %; Neutrophils # (auto) 3.55 K/uL (1.4-6.5); Neutrophils % (auto) 62.2 %; Platelet Count 196 K/uL (130-400); Polychromasia 1+; RDW Coefficient of Variation 18.5 % (11.5-14.5); RDW Standard Deviation 73.5 fL (36.4-46.3); Red Blood Count 1.89 M/uL (4.2-5.4)
[2018-10-04] MEDS ORDERED: PANTOprazole 80 MG in DEXTROSE 5% 100 ML IV STA (01:52)
[2018-10-04] MEDS ORDERED: PANTOprazole 40 MG in DEXTROSE 5% 100 ML IV SCH (02:00)
--- NOTE | 2018-10-04 02:17 | History & Physical Report ---
Date of Service October 04, 2018 Assessment & Plan (1) GI (gastrointestinal bleed): Lower GI bleed secondary to Coumadin coagulopathy hx saddle PE (06/2018) Rule out C. difficile No sepsis Acute on chronic anemia secondary to blood loss Home meds possibly contributory (Dapsone and Sprycel associated with hemolytic anemia/hemorrhage adverse reactions) Pulmonary congestion on x-ray secondary to anemia, ARF chronic respiratory failure secondary to COPD on home O2 hx ALL ongoing Sprycel chemotherapy Hypertension, stable DM 2 insulin requiring, well-controlled as of recent outpatient hemoglobin A1c ? Functional disability Medical telemetry Stop Coumadin Additional vitamin K to total 10 mg at the ER Transfuse packed RBC to maintain hemoglobin greater than 8 (patient's baseline) Hold Sprycel, Dapsone for now until hemoglobin stable stool C. difficile GI consult if stool C. difficile negative and L GIB persistent despite Coumadin reversal Lasix for pulmonary congestion Baseline UA, follow renal function Basal insulin adjusted for clear liquid diet for now given L GIB, ISS BG goal 140-180 PT OT eval DVT prophylaxis. SCDs if INR less than 2 while Coumadin on hold DNR History of Present Illness Chief Complaint: abnormal bloodwork Primary Care Provider: Natalia Brambila DO History obtained from patient and records. Medical history significant for chronic respiratory failure secondary to COPD on home O2, history recent saddle PE currently on Coumadin, hx ALL ongoing Sprycel chemotherapy, Hypertension, hyperlipidemia DM 2 insulin requiring, chronic anemia baseline hemoglobin of 8, history of MRSA. Recent 3 week confinement from May to June 2018 for MRSA cellulitis. Patient found to have bilateral PE with saddle emboli during confinement. Patient discharged on Daptomycin course, Coumadin to [facility] for rehab. Patient left [facility] AGAINST MEDICAL ADVICE 2 weeks ago. Patient has been seen at PCPs office and followed by Mil[facility] at home the last 2 weeks. Some confusion regarding patient intake of Coumadin twice a day as per outpatient notes. 3 days ago patient noted bloody spots on stools without abdominal pain. She woke up yesterday morning with a black eye on the left. Vision okay. No trauma recollection. Denies headache symptoms. Legs more swollen than usual, shortness of breath on exertion as per patient. Patient seen at PCPs office yesterday. Noted to have scleral hemorrhage on the left as per note. Outpatient labs requested. At home, patient noted bloody diarrhea without pain. No hematemesis, coffee-ground emesis. Legs more swollen than usual, shortness of breath on exertion as per patient. CBC resulted later as 6.3, INR of 8.7. Patient directed to the ER by PCP. At the ER, patient received IV vitamin K. 1 unit packed RBC transfusion initiated at the ER. Medical History as above Surgical History : Cholecystectomy, BTL Family History : Hypertension Personal/Social history : Past tobacco abuse, no EtOH intake, retired [employer] originally from [place], [place] Allergies Allergy/AdvReac Type Severity Reaction Status Date / Time No Known Allergies Allergy Verified 10/04/18 01:00 Home Medications Home Medications Medication Instructions Recorded Confirmed Type atorvastatin 40 mg PO HS 04/05/18 10/04/18 History fluticasone propion-salmeterol 1 inh INHALATION BID 04/05/18 10/04/18 History [Advair Diskus] omeprazole 20 mg PO BID 04/05/18 10/04/18 History tramadol 50 mg PO Q6H PRN 04/05/18 10/04/18 History Levemir FlexTouch U-100 Insuln 14 units SUBCUT QPM 06/09/18 10/04/18 History Levemir U-100 Insulin 18 units SUBCUT QAM 06/09/18 10/04/18 History acyclovir 400 mg PO BID 06/09/18 10/04/18 History allopurinol 300 mg PO DAILY 06/09/18 10/04/18 History bumetanide 1 mg PO BID 06/09/18 10/04/18 History insulin aspart U-100 6 units SUBCUT TIDM 06/09/18 10/04/18 History nitroglycerin [Nitrostat] 0.4 mg SUBLINGUAL DIRECTED PRN 06/09/18 10/04/18 History Sprycel 70 mg PO BID 06/12/18 10/04/18 History Women's Multivitamin 1 tab PO DAILY 06/12/18 10/04/18 History albuterol sulfate 2 puff INHALATION Q6H PRN 06/12/18 10/04/18 History dapsone 100 mg PO DAILY 06/12/18 10/04/18 History escitalopram oxalate 5 mg PO DAILY 06/12/18 10/04/18 History acetaminophen [Mapap 650 mg PO Q4H PRN #100 tab 07/03/18 10/04/18 Rx (acetaminophen)] lisinopril [Zestril] 10 mg PO BID #60 tab 07/03/18 10/04/18 Rx metoprolol succinate 50 mg PO BID #60 tab 07/03/18 10/04/18 Rx ondansetron HCl 4 mg PO TID PRN 08/04/18 10/04/18 History warfarin 7.5 mg PO DAILY@209908/29/18 10/04/18 History warfarin [Coumadin] 5 mg PO DAILY@209908/29/18 10/04/18 History Past Med/Surg History Medical History Lumbar disc disease (Chronic) Tobacco use (Resolved) Depression (Chronic) Splenomegaly (Chronic) ALL (acute lymphoblastic leukemia) (Chronic) Osteoarthritis (Chronic) GERD (gastroesophageal reflux disease) (Chronic) Nocturnal hypoxia (Chronic) Moderate COPD (chronic obstructive pulmonary disease) (Chronic) CKD (chronic kidney disease), stage III (Chronic) Dyslipidemia (Chronic) Hypertension (Chronic) DM type 2 (diabetes mellitus, type 2) (Chronic) Diabetes mellitus, type II (Inactive) EKG abnormalities (Inactive) GERD (gastroesophageal reflux disease) (Inactive) Ovarian cyst (Inactive) Diabetes mellitus Surgical History H/O tubal ligation (Chronic) History of cholecystectomy (Chronic) Social History Preferred Language: Namibian Communication Ability: Effective Visual Impairment: No Limitations Hearing Ability: Normal Registered Respiratory Therapist Required: No Beliefs That Will Affect Care: None Current Living Situation: Alone Current Living Situation Comment: House Other Information That Helps Us Care for You: No Feels Safe at Home: Yes Safety Concerns: Feels Safe At This Time Smoking Status: Former smoker Hx Alcohol Use: No Hx Substance Use: No Review of Systems Review of Systems: As per HPI, all 10 systems reviewed, all other ROS negative Physical Exam Physical Exam: GENERAL: Comfortable, somewhat apathetic, obese, no respiratory distress SKIN: Pallor , warm HEENT: periorbital ecchymosis left, pale palpebral conjunctivae, no ptosis, dry buccal mucosa NECK : Supple, short neck, no tenderness CHEST : Decreased breath sounds, occasional wheeze , no tenderness HEART : RRR, no obvious murmurs ABDOMEN: Some distention, nontender EXTREMITIES : asuncion LE swelling/tenderness, no other conspicuous deformities noted NEUROLOGIC : Coherent, L facial asymmetry, no other gross focality Results & Data Vital Signs (Past 12 Hours) Vital Signs Temp Pulse Pulse Resp BP BP Pulse Ox 10/04/18 02:10 36.8 C 76 18 118/47 L 95 10/04/18 02:01 72 19 114/43 L 95 10/04/18 02:00 72 16 95 10/04/18 01:52 72 18 114/44 L 95 10/04/18 01:51 36.7 C 72 18 114/44 L 95 10/04/18 01:47 73 25 H 96 10/04/18 01:46 73 16 126/46 L 96 10/04/18 01:31 74 24 115/39 L 98 10/04/18 01:00 119/43 L 10/04/18 00:47 76 22 118/42 L 96 10/03/18 23:58 36.8 C 79 22 128/72 98 Laboratory Results Laboratory Results WBC 5.70 K/uL (4.8-10.8) 10/04/18 00:27 RBC 1.89 M/uL (4.2-5.4) L 10/04/18 00:27 Hgb 6.4 g/dL (12.0-16.0) L* 10/04/18 00:27 POC Hgb 6.5 g/dl (12.0-16.0) L* 10/04/18 00:33 Hct 20.7 % (37-47) L* 10/04/18 00:27 POC Hct 19 % (37-47) L* 10/04/18 00:33 MCV 109.5 fL (80-100) H 10/04/18 00:27 MCH 33.9 pg (25-34) 10/04/18 00:27 MCHC 30.9 g/dL (32-36) L 10/04/18 00:27 RDW Std Deviation 73.5 fL (36.4-46.3) H 10/04/18 00:27 RDW Coeff of Yariel 18.5 % (11.5-14.5) H 10/04/18 00:27 Plt Count 196 K/uL (130-400) 10/04/18 00:27 MPV 8.7 fL (7.4-10.4) 10/04/18 00:27 Immature Gran % (Auto) 0.4 % 10/04/18 00:27 Neut % (Auto) 62.2 % 10/04/18 00:27 Lymph % (Auto) 20.0 % 10/04/18 00:27 Stewart % (Auto) 13.9 % 10/04/18 00:27 Eos % (Auto) 2.8 % 10/04/18 00:27 Baso % (Auto) 0.7 % 10/04/18 00:27 Immature Gran # (Auto) 0.02 K/uL (0.00-0.02) 10/04/18 00: Neut # (Auto) 3.55 K/uL (1.4-6.5) 10/04/18 00: Lymph # (Auto) 1.14 K/uL (1.2-3.4) L 10/04/18 00:27 Stewart # (Auto) 0.79 K/uL (0.11-0.59) H 10/04/18 00:27 Eos # (Auto) 0.16 K/uL (0-0.5) 10/04/18 00:27 Baso # (Auto) 0.04 K/uL (0-0.2) 10/04/18 00:27 Polychromasia 1+ 10/04/18 00: PT > 90.0 Seconds (9.0-12.0) H 10/04/18 00:27 INR > 10.0 (0.9-1.1) H* 10/04/18 00:27 POC Sodium 141 mEq/L (135-144) 10/04/18 00:33 Sodium 143 mmol/L (136-145) 10/04/18 00:27 POC Potassium 3.7 mEq/L (3.3-5.0) 10/04/18 00:33 Potassium 3.7 mmol/L (3.5-5.1) 10/04/18 00:27 POC Chloride 103 mEq/L (101-112) 10/04/18 00: Chloride 109 mmol/L (98-107) H 10/04/18 00:27 Carbon Dioxide 29 mmol/L (21-32) 10/04/18 00: POC Total CO2 26 mEq/l (24-31) 10/04/18: Anion Gap 5.0 (3-11) 10/04/18 00: POC Anion Gap 17.0 mmol/L (16-25) 10/04/18 00:33 POC BUN 19 mg/dl (7-18) H 10/04/18 00: BUN 20 mg/dl (7-18) H 10/04/18 00: Creatinine 1.41 mg/dl (0.6-1.2) H 10/04/18 00: POC Creatinine 1.4 mg/dl (0.6-1.3) H 10/04/18:33 Est Cr Clr Drug Dosing 44.0 ml/min 10/04/18 00: Est GFR ( Amer) 43.3 10/04/18 00: Est GFR (Non-Af Amer) 37.4 10/04/18 00: BUN/Creatinine Ratio 14.3 (10-20) 10/04/18 00: Glucose 210 mg/dl (70-99) H 10/04/18 00: POC Glucose (other) 212 mg/dl (70-99) H 10/04/18 00:33 Calcium 7.8 mg/dl (8.5-10.1) L 10/04/18 00: POC Ioniz Calcium Lorena 1.11 mmol/l (1.12-1.32) L 10/04/18: Magnesium 1.9 mg/dl (1.8-2.4) 10/04/18 00: Total Bilirubin 0.3 mg/dl (0.2-1) 10/04/18 00: AST 36 U/L (15-37) 10/04/18: ALT 35 U/L (12-78) 10/04/18: Alkaline Phosphatase 92 U/L (45-117) 10/04/18 00: Total Protein 5.5 gm/dl (6.4-8.2) L 10/04/18 00: Albumin 2.6 gm/dl (3.4-5.0) L 10/04/18:27 Globulin 2.9 gm/dl (2.5-4.0) 10/04/18 00:27 Albumin/Globulin Ratio 0.9 (0.9-2) 10/04/18 00: TSH 5.560 uIu/ml (0.300-4.500) H 10/04/18 00: Free T4 0.81 ng/dl (0.8-1.6) 10/04/18 00: Blood Type A Positive 10/04/18 00: Antibody Screen NEGATIVE 10/04/18 00: Crossmatch See Detail 10/04/18: Diagnostic Findings CT head initial read: No acute intracranial abnormality. Mild bruising left intraorbital soft tissues. Unremarkable globe. Mild cerebral volume loss. Mild atherosclerotic calcifications in the intracranial vasculature. Ultrasound venous LLE: Probable chronic nonocclusive thrombus left renal vein. Mild soft tissue edema left calf. CXR as per my interpretation cardiomegaly, mild congestion EKG as per my interpretation: Rate 80, NSR, normal axis, T wave flattening septal leads (1) GI (gastrointestinal bleed) GI bleed type/associated pathology: unspecified gastrointestinal hemorrhage type Qualified Code(s): K92.2 - Gastrointestinal hemorrhage, unspecified
--- NOTE | 2018-10-04 02:40 | Emergency Department Note ---
Entered by Teresa Cr acting as a scribe for Matilde Harry MD History of Present Illness General Chief complaint: Abnormal Labs/Diagnostic Testing Stated complaint: HEADACHE Time Seen by Provider: 10/04/18 00:07 Source: patient History of Present Illness Provider complaint: abnormal INR Onset (ago): hour(s) less than 1 Pain Consistency: + constant Maximum Pain Intensity: 0 Quality: + other (Abnormal test results) Relieved By: + none Exacerbated By: + eating Associated symptoms: + denies other symptoms; no fever/chills and no headaches The patient is a 72 y/o female who presents to the emergency department for evaluation of abnormal test results she received this evening. The patient stated that she went to a doctor�s appointment at [facility] in [place] today and this evening she was informed her �INR is an 8 and should be a 2, so she was to come in to the emergency department immediately�. The patient states that she has been passing stool with blood in it for the past three days. She also notes that she developed a bruise overnight under her left eye yesterday during sleep. The patient notes she has been in a care facility for the past month and then in the hospital for three months before that for treatment of leukemia. During this time she reports having many blood transfusions. She notes that she has been being treated with pills for the leukemia and is also taking Coumadin. The patients states that the Coumadin is for PEs in the legs and stomach that she believes are now resolved. She states that her legs have been red for a few days now as well. She denies a headache, loss of consciousness, fevers and any other symptoms. Home Medications Home Medications Medication Instructions Recorded Confirmed Type atorvastatin 40 mg PO HS 04/05/18 10/04/18 History fluticasone propion-salmeterol 1 inh INHALATION BID 04/05/18 10/04/18 History [Advair Diskus] omeprazole 20 mg PO BID 04/05/18 10/04/18 History tramadol 50 mg PO Q6H PRN 04/05/18 10/04/18 History Levemir FlexTouch U-100 Insuln 14 units SUBCUT QPM 06/09/18 10/04/18 History Levemir U-100 Insulin 18 units SUBCUT QAM 06/09/18 10/04/18 History acyclovir 400 mg PO BID 06/09/18 10/04/18 History allopurinol 300 mg PO DAILY 06/09/18 10/04/18 History bumetanide 1 mg PO BID 06/09/18 10/04/18 History insulin aspart U-100 6 units SUBCUT TIDM 06/09/18 10/04/18 History nitroglycerin [Nitrostat] 0.4 mg SUBLINGUAL DIRECTED PRN 06/09/18 10/04/18 History Sprycel 70 mg PO BID 06/12/18 10/04/18 History Women's Multivitamin 1 tab PO DAILY 06/12/18 10/04/18 History albuterol sulfate 2 puff INHALATION Q6H PRN 06/12/18 10/04/18 History dapsone 100 mg PO DAILY 06/12/18 10/04/18 History escitalopram oxalate 5 mg PO DAILY 06/12/18 10/04/18 History acetaminophen [Mapap 650 mg PO Q4H PRN #100 tab 07/03/18 10/04/18 Rx (acetaminophen)] lisinopril [Zestril] 10 mg PO BID #60 tab 07/03/18 10/04/18 Rx metoprolol succinate 50 mg PO BID #60 tab 07/03/18 10/04/18 Rx ondansetron HCl 4 mg PO TID PRN 08/04/18 10/04/18 History warfarin 7.5 mg PO DAILY@209908/29/18 10/04/18 History warfarin [Coumadin] 5 mg PO DAILY@2100 08/29/18 10/04/18 History Allergies Allergy/AdvReac Type Severity Reaction Status Date / Time No Known Allergies Allergy Verified 10/04/18 01:00 Past Med/Surg History Medical History Lumbar disc disease (Chronic) Tobacco use (Resolved) Depression (Chronic) Splenomegaly (Chronic) ALL (acute lymphoblastic leukemia) (Chronic) Osteoarthritis (Chronic) GERD (gastroesophageal reflux disease) (Chronic) Nocturnal hypoxia (Chronic) Moderate COPD (chronic obstructive pulmonary disease) (Chronic) CKD (chronic kidney disease), stage III (Chronic) Dyslipidemia (Chronic) Hypertension (Chronic) DM type 2 (diabetes mellitus, type 2) (Chronic) Diabetes mellitus, type II (Inactive) EKG abnormalities (Inactive) GERD (gastroesophageal reflux disease) (Inactive) Ovarian cyst (Inactive) Diabetes mellitus Surgical History H/O tubal ligation (Chronic) History of cholecystectomy (Chronic) Social History Preferred Language: Vietnamese Communication Ability: Effective Visual Impairment: No Limitations 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 and A total of 10 systems reviewed and were otherwise negative Physical Exam Vital Signs Vital Signs - 24 hr 10/03/18 23:58 10/04/18 00:29 10/04/18 00:47 Temperature 36.8 C Temperature Source Oral Sepsis Recent Fever Within 48 Hours No Sepsis Action Taken by Nursing No Action Required Pulse Rate 79 Pulse Rate [Apical] 76 Pulse Rate from SpO2 Sensor Pulse Rhythm Pulse Strength Respiratory Rate 22 22 Respiratory Effort / Characteristics Non-Labored Non-Labored Spontaneous Respiratory Depth Normal Normal Blood Pressure 128/72 Blood Pressure [Right Arm] 118/42 L Blood Pressure Mean 90 Blood Pressure Mean [Right Arm] 67 Blood Pressure Position Pulse Oximetry 98 96 Oxygen Delivery Method Room Air Room Air Nasal Cannula Oxygen Flow Rate 3 10/04/18 01:00 10/04/18 01:31 10/04/18 01:46 Temperature Temperature Source Sepsis Recent Fever Within 48 Hours Sepsis Action Taken by Nursing Pulse Rate 74 73 Pulse Rate [Apical] Pulse Rate from SpO2 Sensor 74 73 Pulse Rhythm Pulse Strength Respiratory Rate 24 16 Respiratory Effort / Characteristics Respiratory Depth Blood Pressure 119/43 L 115/39 L 126/46 L Blood Pressure [Right Arm] Blood Pressure Mean 68 64 72 Blood Pressure Mean [Right Arm] Blood Pressure Position Pulse Oximetry 98 96 Oxygen Delivery Method Nasal Cannula Nasal Cannula Oxygen Flow Rate 3 3 10/04/18 01:47 10/04/18 01:51 10/04/18 01:52 Temperature 36.7 C Temperature Source Oral Sepsis Recent Fever Within 48 Hours Sepsis Action Taken by Nursing Pulse Rate 73 72 72 Pulse Rate [Apical] Pulse Rate from SpO2 Sensor Pulse Rhythm Pulse Strength Respiratory Rate 25 H 18 18 Respiratory Effort / Characteristics Respiratory Depth Blood Pressure 114/44 L 114/44 L Blood Pressure [Right Arm] Blood Pressure Mean 67 67 Blood Pressure Mean [Right Arm] Blood Pressure Position Pulse Oximetry 96 95 95 Oxygen Delivery Method Oxygen Flow Rate 3 10/04/18 02:00 10/04/18 02:01 10/04/18 02:10 Temperature 36.8 C Temperature Source Oral Sepsis Recent Fever Within 48 Hours Sepsis Action Taken by Nursing Pulse Rate 72 72 76 Pulse Rate [Apical] Pulse Rate from SpO2 Sensor Pulse Rhythm Regular Pulse Strength Normal Respiratory Rate 16 19 18 Respiratory Effort / Characteristics Respiratory Depth Blood Pressure 114/43 L 118/47 L Blood Pressure [Right Arm] Blood Pressure Mean 66 70 Blood Pressure Mean [Right Arm] Blood Pressure Position Lying Pulse Oximetry 95 95 95 Oxygen Delivery Method Oxygen Flow Rate 3 10/04/18 02:16 10/04/18 02:25 Temperature 36.5 C Temperature Source Oral Sepsis Recent Fever Within 48 Hours Sepsis Action Taken by Nursing Pulse Rate 74 74 Pulse Rate [Apical] Pulse Rate from SpO2 Sensor 74 Pulse Rhythm Regular Pulse Strength Normal Respiratory Rate 20 19 Respiratory Effort / Characteristics Respiratory Depth Blood Pressure 118/36 L 125/45 L Blood Pressure [Right Arm] Blood Pressure Mean 63 71 Blood Pressure Mean [Right Arm] Blood Pressure Position Lying Pulse Oximetry 94 96 Oxygen Delivery Method Nasal Cannula Oxygen Flow Rate 3 3 Vital signs reviewed. General: Chronically ill appearing, pale in appearance, in no significant distress. HEENT: No scleral icterus, PERRLA, neck supple. Atraumatic. Large ecchymosis over the left periorbital region with sub conjunctival hemorrhage. Dry mucus membranes Cardiovascular: Regular rate and rhythm, no extra sounds. Pulmonary: Clear to auscultation bilaterally, normal work of breathing. Abdomen: Soft, nontender, nondistended, positive bowel sounds. Musculoskeletal: Atraumatic, no peripheral edema. Neurologic: Patient awake alert and oriented x 3, full strength in all 4 extremities. Cranial nerves 2 through 12 grossly intact. Left >right distal erythema, left lower extremity is warm to touch. Skin: Warm, dry, minimal rash/erythema to L>R LE Course 0009: The patient was evaluated in room A02. A complete history and physical exam was performed. 0119: I reviewed the patients results, her INR is greater than 10 and hemoglobin is 6.5. 0135: I checked on the patient. The rectal exam was guaiac positive in stool. 0140: [facility]. He will evaluate for further management. Administered Medications Insulin Aspart (Novolog Flexpen) 0 units SC ACHS MOIRA Stop: 11/03/18 03:20 Last Admin: 10/04/18 03:59 Dose: 3 units Documented by: [id number] Cosigned by: [id number] Insulin Detemir (Levemir Flextouch) 5 units SC BID MOIRA Stop: 11/03/18 03:44 Last Admin: 10/04/18 03:59 Dose: 5 units Documented by: [id number] Cosigned by: [id number] Discontinued Medications Albuterol (Duoneb) 3 ml NEB NOW STA Stop: 10/04/18 03:22 Last Admin: 10/04/18 03:56 Dose: 3 ml Documented by: [id number] Sodium Chloride (Nss 1000ml) 1,000 mls @ 999 mls/hr IV .Q1H1M MOIRA Stop: 10/04/18 01:15 Last Infusion: 10/04/18 02:57 Dose: 0 mls/hr Documented by: [id number] Admin: 10/04/18 00:44 Dose: 999 mls/hr Documented by: [id number] Phytonadione 5 mg/ Sodium (Chloride) 50.5 mls @ 101 mls/hr IV ONE ONE Stop: 10/04/18 00:41 Last Infusion: 10/04/18 01:35 Dose: 0 mls/hr Documented by: [id number] Admin: 10/04/18 00:45 Dose: 101 mls/hr Documented by: [id number] Phytonadione 5 mg/ Sodium (Chloride) 50.5 mls @ 101 mls/hr IV ONE ONE Stop: 10/04/18 02:03 Last Infusion: 10/04/18 02:18 Dose: 0 mls/hr Documented by: [id number] Admin: 10/04/18 01:46 Dose: 101 mls/hr Documented by: [id number] Pantoprazole Sodium 80 mg/ (Dextrose) 120 mls @ 480 mls/hr IV NOW STA Stop: 10/04/18 02:06 Last Admin: 10/04/18 02:35 Dose: Not Given Documented by: [id number] Pantoprazole Sodium 40 mg/ (Dextrose) 100 mls @ 20 mls/hr IV Q5H MOIRA Stop: 10/04/18 06:59 Last Admin: 10/04/18 02:25 Dose: Not Given Documented by: [id number] Furosemide 20 mg/ Syringe 2 mls @ 4 mls/min IV TODAY@0430 ONE Stop: 10/04/18 04:31 Last Admin: 10/04/18 05:04 Dose: 4 mls/min Documented by: [id number] Medical Decision Making Differential Diagnosis Differential diagnosis: Etiologies such as esophagitis, variceal bleed, Boerhaave�s, Ammon-Perry tear, gastritis, peptic ulcer disease, AVM, inflammatory bowel disease, ischemia, diverticulosis, colitis, malignancy, coagulopathy, thrombocytopenia, fissure, hemorrhoid, epistaxis , as well as others were entertained. Medical Records Attestation: I reviewed the patient's medical records. Home Medications Current Medication List: was personally reviewed by me Laboratory Data Attestation: I reviewed the patient's lab results. Result diagrams: 10/04/18 00:27 10/04/18 00:27 Lab Results 10/04/18 10/04/18 10/04/18 Range/Units 00:27 00:27 00:27 WBC 5.70 (4.8-10.8) K/uL RBC 1.89 L (4.2-5.4) M/uL Hgb 6.4 L* (12.0-16.0) g/dL POC Hgb (12.0-16.0) g/dl Hct 20.7 L* (37-47) % POC Hct (37-47) % MCV 109.5 H (80-100) fL MCH 33.9 (25-34) pg MCHC 30.9 L (32-36) g/dL RDW Std Deviation 73.5 H (36.4-46.3) fL RDW Coeff of Yariel 18.5 H (11.5-14.5) % Plt Count 196 (130-400) K/uL MPV 8.7 (7.4-10.4) fL Immature Gran % (Auto) 0.4 % Neut % (Auto) 62.2 % Lymph % (Auto) 20.0 % [place] % (Auto) 13.9 % Eos % (Auto) 2.8 % Baso % (Auto) 0.7 % Immature Gran # (Auto) 0.02 (0.00-0.02) K/uL Neut # (Auto) 3.55 (1.4-6.5) K/uL Lymph # (Auto) 1.14 L (1.2-3.4) K/uL [place] # (Auto) 0.79 H (0.11-0.59) K/uL Eos # (Auto) 0.16 (0-0.5) K/uL Baso # (Auto) 0.04 (0-0.2) K/uL Polychromasia 1+ PT > 90.0 H (9.0-12.0) Seconds INR > 10.0 H* (0.9-1.1) POC Sodium (135-144) mEq/L Sodium 143 (136-145) mmol/L POC Potassium (3.3-5.0) mEq/L Potassium 3.7 (3.5-5.1) mmol/L POC Chloride (101-112) mEq/L Chloride 109 H (98-107) mmol/L Carbon Dioxide 29 (21-32) mmol/L POC Total CO2 (24-31) mEq/l Anion Gap 5.0 (3-11) POC Anion Gap (16-25) mmol/L POC BUN (7-18) mg/dl BUN 20 H (7-18) mg/dl Creatinine 1.41 H (0.6-1.2) mg/dl POC Creatinine (0.6-1.3) mg/dl Est Cr Clr Drug Dosing 44.0 ml/min Est GFR ( Amer) 43.3 Est GFR (Non-Af Amer) 37.4 BUN/Creatinine Ratio 14.3 (10-20) Glucose 210 H (70-99) mg/dl POC Glucose (other) (70-99) mg/dl Calcium 7.8 L (8.5-10.1) mg/dl POC Ioniz Calcium Lore[place] (1.12-1.32) mmol/l Magnesium 1.9 (1.8-2.4) mg/dl Total Bilirubin 0.3 (0.2-1) mg/dl AST 36 (15-37) U/L ALT 35 (12-78) U/L Alkaline Phosphatase 92 (45-117) U/L Total Protein 5.5 L (6.4-8.2) gm/dl Albumin 2.6 L (3.4-5.0) gm/dl Globulin 2.9 (2.5-4.0) gm/dl Albumin/Globulin Ratio 0.9 (0.9-2) TSH 5.560 H (0.300-4.500) uIu/ml Free T4 0.81 (0.8-1.6) ng/dl Blood Type Antibody Screen Crossmatch 10/04/18 10/04/18 Range/Units 00:29 00:33 WBC (4.8-10.8) K/uL RBC (4.2-5.4) M/uL Hgb (12.0-16.0) g/dL POC Hgb 6.5 L* (12.0-16.0) g/dl Hct (37-47) % POC Hct 19 L* (37-47) % MCV (80-100) fL MCH (25-34) pg MCHC (32-36) g/dL RDW Std Deviation (36.4-46.3) fL RDW Coeff of Yariel (11.5-14.5) % Plt Count (130-400) K/uL MPV (7.4-10.4) fL Immature Gran % (Auto) % Neut % (Auto) % Lymph % (Auto) % [place] % (Auto) % Eos % (Auto) % Baso % (Auto) % Immature Gran # (Auto) (0.00-0.02) K/uL Neut # (Auto) (1.4-6.5) K/uL Lymph # (Auto) (1.2-3.4) K/uL [place] # (Auto) (0.11-0.59) K/uL Eos # (Auto) (0-0.5) K/uL Baso # (Auto) (0-0.2) K/uL Polychromasia PT (9.0-12.0) Seconds INR (0.9-1.1) POC Sodium 141 (135-144) mEq/L Sodium (136-145) mmol/L POC Potassium 3.7 (3.3-5.0) mEq/L Potassium (3.5-5.1) mmol/L POC Chloride 103 (101-112) mEq/L Chloride (98-107) mmol/L Carbon Dioxide (21-32) mmol/L POC Total CO2 26 (24-31) mEq/l Anion Gap (3-11) POC Anion Gap 17.0 (16-25) mmol/L POC BUN 19 H (7-18) mg/dl BUN (7-18) mg/dl Creatinine (0.6-1.2) mg/dl POC Creatinine 1.4 H (0.6-1.3) mg/dl Est Cr Clr Drug Dosing ml/min Est GFR ( Amer) Est GFR (Non-Af Amer) BUN/Creatinine Ratio (10-20) Glucose (70-99) mg/dl POC Glucose (other) 212 H (70-99) mg/dl Calcium (8.5-10.1) mg/dl POC Ioniz Calcium [place] 1.11 L (1.12-1.32) mmol/l Magnesium (1.8-2.4) mg/dl Total Bilirubin (0.2-1) mg/dl AST (15-37) U/L ALT (12-78) U/L Alkaline Phosphatase (45-117) U/L Total Protein (6.4-8.2) gm/dl Albumin (3.4-5.0) gm/dl Globulin (2.5-4.0) gm/dl Albumin/Globulin Ratio (0.9-2) TSH (0.300-4.500) uIu/ml Free T4 (0.8-1.6) ng/dl Blood Type A Positive Antibody Screen NEGATIVE Crossmatch See Detail Imaging Data Attestation: I personally reviewed and interpreted this imaging study as follo ws: My Impression: The chest x-ray showed difficulty visualizing the left diaphragm likely atelectasis, versus plural effusion. Cardiomegaly, no acute focal lung co nsolidation, calcifications of the left mid lung field noted. Radiologist's Impression: Radiology results as stated below per my review and the radiologist's interpretation: CT HEAD Comparison is made to CT head on 11/28/2015 No acute intracranial abnormality identified. Mild bruising in the left infraorbital soft tissues. The globe are unremarkable. The fracture. Mild chronic small vessel ischemic disease and cerebral volume loss. Mild mucosal thickening in the ethmoid air cells on the right. Mild atherosclerotic calcification of the intracranial vasculature. Per stat rad: ULTRASOUND venous left lower extremity: Comparison is made to venous lower extremity ultrasound on 06/25/2018. Probable chronic nonocclusive thrombus in the left peroneal vein. No other deep venous thrombus identified in the left lower extremity. Mild soft tissue edema in the left calf. Radiologist: Staci Phillips MD ECG Data Attestation: I personally reviewed and interpreted this ECG as follows: Indication: other (abnormal INR) Rate (beats per minute): 77 Rhythm: normal sinus Findings: + other (no acute ischemia ); no ectopy Blood Pressure Blood Pressure Findings: Normal blood pressure MDM Narrative This patient was evaluated and appeared to be in no significant distress. Physical examination reveals a pale complexion, dry mucous membranes and a large left periorbital hematoma with subconjunctival hemorrhage. Patient denies any pain in the eye or trauma. Laboratory work reveals stool is heme positive, hemo globin is 6.4 with an INR greater than 10. Patient was given IV vitamin K 10 mg. Patient was typed and crossed for 2 units. 1 unit was administered after blood transfusion consent was obtained. IV Protonix bolus and drip was initiated. Ultrasound of the left lower extremity was performed and is negative for acute process, significant for chronic DVT. Patient was informed of the findings and agrees with the plan for admission for further management. Dr. Escobar has been consulted and will evaluate the patient. Impression & Plan GI (gastrointestinal bleed), Anemia, Supratherapeutic INR Discharge Plan Visit Data *Final* Discharge Date/Time: 10/04/18 02:56 Chief Complaint: Abnormal Labs/Diagnostic Testing Stated Complaint: HEADACHE ED Provider: Matilde Harry Discharge Problem: GI (gastrointestinal bleed), Anemia, Supratherapeutic INR Patient Disposition: Admitted As Inpatient Discharge Instructions Interventions: ED Discharge Assessment Last Done: 10/04/18 02:56 Discharge Problem: GI (gastrointestinal bleed) Qualifiers: GI bleed type/associated pathology: unspecified gastrointestinal hemorrhage type Qualified Code(s): K92.2 - Gastrointestinal hemorrhage, unspecified Anemia Qualifiers: Anemia type: unspecified type Qualified Code(s): D64.9 - Anemia, unspecified The scribe's documentation has been prepared under my direction and personally reviewed by me in its entirety. I confirm that the note above accurately reflects all work, treatment, procedures, and medical decision making performed by me.
[2018-10-04] MEDS ORDERED: PROMETHAZINE HCL 12.5 MG in SODIUM CHLORIDE 0.9% 50 ML IV PRN (03:21)
[2018-10-04] MEDS ORDERED: GLUCAGON FOR INJ 1 MG VIAL SQ PRN (03:21)
[2018-10-04] MEDS ORDERED: ACETAMINOPHEN 325 MG TAB PO PRN ×2 (03:21)
[2018-10-04] MEDS ORDERED: ALBUT/IPRATROP 3MG/0.5MG NEB 3 ML VIAL NEB PRN (03:21)
[2018-10-04] MEDS ORDERED: NITROGLYCERIN SL 0.4 MG/TAB TAB SL PRN (03:21)
[2018-10-04] MEDS ORDERED: DEXTROSE 50% 50 ML SYRINGE IV PRN (03:21)
[2018-10-04] MEDS ORDERED: ALBUT/IPRATROP 3MG/0.5MG NEB 3 ML VIAL NEB STA (03:21)
[2018-10-04] MEDS ORDERED: TRAMADOL HCL 50 MG TABLET PO PRN (03:21)
[2018-10-04] MEDS ORDERED: HYDROmorphone INJ 0.5 MG/0.5 ML SYR IV PRN (03:21)
[2018-10-04] MEDS ORDERED: GLUCOSE 10 TABS/TUBE PO PRN (03:21)
[2018-10-04] MEDS ORDERED: GLUCOSE 40% GEL 15 GM TUBE PO PRN (03:21)
[2018-10-04] MEDS ORDERED: CARBOHYDRATES FOR HYPOGLYCEMIA PO PRN (03:21)
[2018-10-04] MEDS: INSULIN ASPART 100 UNITS/ML 3 ML PEN SC SCH ×5 (03:59→20:44)
[2018-10-04] MEDS: INSULIN DETEMIR FLEXPEN/FLEX TOUCH 100 UNITS/ML 3ML SC SCH ×2 (03:59→20:44)
[2018-10-04] MEDS ORDERED: FUROSEMIDE 20 MG in SYRINGE 0 ML IV ONE (04:30)
[2018-10-04 06:32] LABS: Appearance Urine Cloudy (Clear); Bacteria Urine Automated 4+ (Negative); Bilirubin Urine Negative (Negative); Blood Urine 1+ (Negative); Color Urine Dark Yellow; Epithelial Cell Urine Auto 0-5 /lpf (0-5); Glucose Urine UA Negative (Negative); Ketones Urine Negative (Negative); Leukocyte Esterase Urine 2+ (Negative); Nitrite Urine Negative (Negative); Protein Urine 1+ (Negative); RBC Urine Automated 0-4 /hpf (0-4); Specific Gravity Urine 1.015 (1.000-1.030); Urobilinogen Urine Negative (Negative); WBC Urine Automated >30 /hpf (0-5)
--- NOTE | 2018-10-04 06:32 | CT Scan Report ---
CT head/brain wo con CLINICAL HISTORY: 72 years-old Female with elevated INR, facial bruising. Facial bruising with headac he. TECHNIQUE: Multiple axial CT images of the head were obtained without contrast. A dose lowering tech nique was utilized adhering to the principles of ALARA. CT DOSE: 614.27 mGy.cm COMPARISON: CT head 11/28/2015. FINDINGS: No acute intracranial hemorrhage, midline shift, intracranial mass, hydrocephalus, territorial ischem ia or abnormal extra-axial collection. Age-related involutional changes. Patchy white matter hypodens ities suggest chronic microvascular ischemic disease. Cerebral vascular calcifications are noted. The calvarium is intact. Mastoid air cells are clear. Mild mucosal thickening of the ethmoid air marilee ls. Mild left periorbital subcutaneous edema. IMPRESSION: No acute intracranial abnormality. The above report was generated using voice recognition software. It may contain grammatical, syntax o r spelling errors. Electronically signed by: Aime Lynn M.D. 10/04/2018 6:30 AM
--- NOTE | 2018-10-04 06:37 | Ultrasound Report ---
US venous doppler LE LT HISTORY: 72 years-old Female LLE swelling, warmth, ALL, h/o DVT, INR elevated acute swelling of the left lower extremity. History of DVT within the distal popliteal vein and within the entire peroneal vein. COMPARISON: Duplex venous Doppler study of the bilateral lower extremities 06/25/2018 TECHNIQUE: Multiple real-time sonographic images of the left lower extremity deep venous structures w ere obtained assessing grayscale appearance, color and spectral flow. FINDINGS: Intermittent flow noted within the peroneal veins. Otherwise there is normal flow, compressibility, p hasicity and augmentation of the left lower extremity deep venous structures. Mild subcutaneous edema . IMPRESSION: 1. No acute deep venous thrombosis identified. 2. Chronic partially occlusive thrombus of the left peroneal vein. The above report was generated using voice recognition software. It may contain grammatical, syntax o r spelling errors. Electronically signed by: Aime Lynn M.D. 10/04/2018 6:36 AM
--- NOTE | 2018-10-04 06:42 | XRay Report ---
XR chest 1V portable HISTORY: 72 years-old Female weakness acute weakness COMPARISON: Chest radiograph and CTA chest 06/24/2018 TECHNIQUE: Portable AP view of the chest FINDINGS: Cardiac silhouette is enlarged, unchanged. Chronic reticular opacities without pneumothorax, overt pu lmonary edema or large pleural effusion. Left greater the right bibasilar opacities are again noted i n addition to a calcified granuloma of the left lower lobe. Degenerative changes of the shoulders and spine. IMPRESSION: 1. Cardiomegaly without overt pulmonary edema. 2. Chronic reticular opacities. 3. Left greater than right bibasilar opacities redemonstrated suggestive of atelectasis or pneumoniti s. On prior study from 06/24/2018, there was complete collapse of the left lower lobe. Bronchoscopy cou ld be considered if of further clinical concern. The above report was generated using voice recognition software. It may contain grammatical, syntax o r spelling errors. Electronically signed by: Aime Lynn M.D. 10/04/2018 6:41 AM
--- NOTE | 2018-10-04 07:18 | Ultrasound Report ---
US venous doppler LE RT HISTORY: 72 years-old Female leg swelling acute pain and swelling of the right lower extremity. Hist ory of DVT within the peroneal veins. COMPARISON: Duplex venous Doppler study 06/25/2018 TECHNIQUE: Multiple real-time sonographic images of the right lower extremity deep venous structures were obtained assessing grayscale appearance, color and spectral flow. FINDINGS: Moderate subcutaneous edema. Occlusive thrombus noted within one of the peroneal veins, previously patrick th were occluded on study from 06/25/2018. Pulsatile waveforms are suggestive of increased right heart pressures. There is otherwise normal flow, compressibility, and augmentation of the right lower extre mity deep venous structures. IMPRESSION: 1. Occlusive thrombus within one of the peroneal veins, previously both were occluded on 06/25/2018. 2. No new DVT identified. The above report was generated using voice recognition software. It may contain grammatical, syntax o r spelling errors. Electronically signed by: Aime Lynn M.D. 10/04/2018 7:17 AM
[2018-10-04] MEDS: ACYCLOVIR 400 MG TAB PO SCH ×2 (08:31→20:50)
[2018-10-04] MEDS: METOPROLOL SUCC 25MG EXT REL TAB PO SCH ×2 (08:31→20:51)
[2018-10-04] MEDS: ALLOPURINOL 300 MG TAB PO SCH (08:31)
[2018-10-04] MEDS: PANTOprazole 40 MG TAB PO SCH ×2 (08:32→20:50)
[2018-10-04] MEDS: ESCITALOPRAM OXALATE 10 MG TAB PO SCH (08:32)
[2018-10-04] MEDS ORDERED: METOPROLOL SUCC 50MG EXT REL TAB PO SCH (09:00)
[2018-10-04 10:37] LABS: Hematocrit (blood only) 25.2 % (37-47); Hemoglobin 8.2 g/dL (12.0-16.0)
[2018-10-04 11:00] LABS: BUN Creatinine Ratio 15.9 (10-20); Calcium 8.1 mg/dl (8.5-10.1); Creatinine Clr Calc Pharmacy 50.6 ml/min; Est GFR (African American) 51.1; Est GFR (Non-African American) 44.1; Potassium 3.8 mmol/L (3.5-5.1)
[2018-10-04 12:37] LABS: INR 1.9 (0.9-1.1); Prothrombin Time 18.8 Seconds (9.0-12.0)
[2018-10-04] MEDS ORDERED: ATORVASTATIN 40 MG TAB PO SCH (21:00)
[2018-10-05 06:02] LABS: Basophils # (auto) 0.04 K/uL (0-0.2); Basophils % (auto) 0.7 %; Eosinophils # (auto) 0.29 K/uL (0-0.5); Eosinophils % (auto) 5.2 %; Hematocrit (blood only) 25.9 % (37-47); Hemoglobin 8.3 g/dL (12.0-16.0); Immature Granulocytes # (auto) 0.01 K/uL (0.00-0.02); Immature Granulocytes % (auto) 0.2 %; Lymphocytes # (auto) 0.81 K/uL (1.2-3.4); Lymphocytes % (auto) 14.5 %; Mean Corpuscular Volume 98.9 fL (80-100); Mean Platelet Volume 8.7 fL (7.4-10.4); Monocytes # (auto) 0.52 K/uL (0.11-0.59); Monocytes % (auto) 9.3 %; Neutrophils % (auto) 70.1 %; Platelet Count 234 K/uL (130-400); RDW Coefficient of Variation 24.7 % (11.5-14.5); RDW Standard Deviation 85.2 fL (36.4-46.3); Red Blood Count 2.62 M/uL (4.2-5.4); White Blood Count 5.57 K/uL (4.8-10.8)
[2018-10-05 06:27] LABS: Anisocytosis Present
[2018-10-05 06:34] LABS: INR 1.4 (0.9-1.1); Prothrombin Time 13.9 Seconds (9.0-12.0)
[2018-10-05] MEDS: ACYCLOVIR 400 MG TAB PO SCH (08:13)
[2018-10-05] MEDS: METOPROLOL SUCC 25MG EXT REL TAB PO SCH (08:13)
[2018-10-05] MEDS: ESCITALOPRAM OXALATE 10 MG TAB PO SCH (08:13)
[2018-10-05] MEDS: PANTOprazole 40 MG TAB PO SCH (08:14)
[2018-10-05] MEDS: INSULIN DETEMIR FLEXPEN/FLEX TOUCH 100 UNITS/ML 3ML SC SCH (08:14)
[2018-10-05] MEDS: ALLOPURINOL 300 MG TAB PO SCH (08:14)
[2018-10-05] MEDS: INSULIN ASPART 100 UNITS/ML 3 ML PEN SC SCH ×2 (08:16→12:14)
--- NOTE | 2018-10-05 12:42 | Hospitalist Progress Note ---
Date of Service October 05, 2018 Assessment & Plan (1) GI (gastrointestinal bleed): Lower GI bleed secondary to Coumadin coagulopathy Blood in the stool was no longer found in hospital He denies any acute symptoms Stool for C. difficile was not collected Status post 1 unit of PRBC Hemoglobin remained more than 80 for the last 2 days Acute on chronic anemia secondary to blood loss Possibility of side effect of any chemotherapeutic medication Discussed with outreach team member We will continue current chemotherapeutic drugs Acute kidney injury Renal function improved Chronic respiratory failure secondary to COPD on home O2 No acute issues We will continue home oxygen hx ALL ongoing Sprycel chemotherapy Discussed with outreach team member-we will continue chemotherapeutic Hypertension, stable DM 2 insulin requiring, well-controlled as of recent outpatient hemoglobin A1c PT OT eval DVT prophylaxis. SCDs if INR less than 2 while Coumadin on hold DNR We will discharge home today Subjective 10/05 Patient was seen and examined in medical floor She has been feeling a lot better and denies any significant complaint She has been ambulating without any difficulty No more bloody diarrhea and her hemoglobin remains stable She will be discharged this afternoon t Review of Systems Review of Systems: All systems reviewed and are unremarkable except as noted below Constitutional: + weakness Eyes: Left periorbital ecchymosis-improved Physical Exam Physical Exam: No apparent distress at rest Constitutional: well developed and well nourished; no acute distress Eyes: + eyelid abnormality (Ecchymosis in the left) ENMT: external ear and nose normal, oropharynx normal Neck: trachea midline, no thyromegaly Respiratory: normal respiratory effort; no respiratory distress Ausc ultation: lungs clear to auscultation bilaterally Cardiovascular: Rate/Rhythm: regular rate and regular rhythm Heart Sounds: no murmur Gastrointestinal (Abdomen): Inspection/Auscultation: abdomen normal to inspection and normal bowel sounds Percussion/Palpation: abdomen soft; abdomen nontender Musculoskeletal: No acute arthritis Neurologic: PERRL, EOMI, accommodation nl, no face palsy, no dysarthria Lymphatic: no cervical or axillary lymphadenopathy Results & Data Vital Signs (Past 12 Hours) Vital Signs Temp Pulse Pulse Resp BP Pulse Ox 10/05/18 11:15 37.1 C 89 20 124/75 97 10/05/18 07:00 37.4 C 77 20 134/74 94 10/05/18 03:59 37.3 C 81 17 122/71 94 10/05/18 01:18 76 Laboratory Results Short CBC 10/05/18 Range/Units 05:45 WBC 5.57 (4.8-10.8) K/uL Hgb 8.3 L (12.0-16.0) g/dL Hct 25.9 L (37-47) % Plt Count 234 (130-400) K/uL Medications Administered Current Inpatient Medications Acetaminophen (Tylenol) 650 mg PO Q4H PRN PRN Reason: fever or pain Stop: 11/03/18 03:20 Acyclovir (Zovirax) 400 mg PO BID MOIRA Stop: 11/03/18 08:59 Last Admin: 10/05/18 08:13 Dose: 400 mg Documented by: Albuterol (Duoneb) 3 ml NEB Q2H PRN PRN Reason: Wheezing Stop: 11/03/18 03:20 Allopurinol (Zyloprim) 300 mg PO DAILY MOIRA Stop: 11/03/18 08:59 Last Admin: 10/05/18 08:14 Dose: 300 mg Documented by: Atorvastatin Calcium (Lipitor) 40 mg PO HS MOIRA Stop: 11/03/18 20:59 Last Admin: 10/04/18 20:50 Dose: 40 mg Documented by: Dextrose (Dextrose 50%) 25 - 50 ml IV UD PRN; Protocol PRN Reason: Hypoglycemia Protocol Stop: 11/03/18 03:20 Escitalopram Oxalate (Lexapro) 5 mg PO DAILY MOIRA Stop: 11/03/18 08:59 Last Admin: 10/05/18 08:13 Dose: 5 mg Documented by: Glucagon (Glucagen) 1 mg SQ UD PRN; Protocol PRN Reason: Hypoglycemia Protocol Stop: 11/03/18 03:20 Glucose (Glucose 40%) 15 - 30 gm PO UD PRN; Protocol PRN Reason: Hypoglycemia Protocol Stop: 11/03/18 03:20 Glucose (Dex4 Glucose) 4 - 8 tabs PO UD PRN; Protocol PRN Reason: Hypoglycemia Protocol Stop: 11/03/18 03:20 Hydromorphone HCl (Dilaudid) 0.5 mg IV Q3H PRN PRN Reason: Pain Stop: 10/18/18 03:20 Promethazine HCl 12.5 mg/ (Sodium Chloride) 50.5 mls @ 202 mls/hr IV Q6H PRN PRN Reason: Nausea And Vomiting Stop: 11/03/18 03:20 Sodium Chloride (Nss) 250 mls @ 15 mls/hr IV .[id number] PRN PRN Reason: For Transfusion Stop: 11/03/18 03:20 Insulin Aspart (Novolog Flexpen) 0 units SC ACHS [facility] Stop: 11/03/18 03:20 Last Admin: 10/05/18 12:14 Dose: 3 units Documented by: Insulin Detemir (Levemir Flextouch) 5 units SC BID MOIRA Stop: 11/03/18 03:44 Last Admin: 10/05/18 08:14 Dose: 5 units Documented by: Metoprolol Succinate (Toprol Xl) 25 mg PO BID MOIRA Stop: 11/03/18 08:59 Last Admin: 10/05/18 08:13 Dose: 25 mg Documented by: Miscellaneous (Carbohydrates For Hypoglycemia) 15 - 30 gm PO UD PRN PRN Reason: Hypoglycemia Treatment Stop: 11/03/18 03:20 Nitroglycerin (Nitrostat) 0.4 mg SL UD PRN PRN Reason: Chest Pain Stop: 11/03/18 03:20 Pantoprazole Sodium (Protonix) 40 mg PO BID [facility] Stop: 11/03/18 08:59 Last Admin: 10/05/18 08:14 Dose: 40 mg Documented by: Tramadol HCl (Ultram) 50 mg PO Q6H PRN PRN Reason: Pain Stop: 11/03/18 03:20 Last Admin: 10/04/18 20:49 Dose: 50 mg Documented by: (1) GI (gastrointestinal bleed) GI bleed type/associated pathology: unspecified gastrointestinal hemorrhage type Qualified Code(s): K92.2 - Gastrointestinal hemorrhage, unspecified
[2018-10-05] MEDS ORDERED: WARFARIN SOD 5 MG TAB PO SCH (16:00)
--- NOTE | 2018-10-07 08:01 | Discharge Summary ---
Date of Service October 07, 2018 Admission HPI Per Admitting Provider History obtained from patient and records. Medical history significant for chronic respiratory failure secondary to COPD on home O2, history recent saddle PE currently on Coumadin, hx ALL ongoing Sprycel chemotherapy, Hypertension, hyperlipidemia DM 2 insulin requiring, chronic anemia baseline hemoglobin of 8, history of MRSA. Recent 3 week confinement from May to June 2018 for MRSA cellulitis. Patient found to have bilateral PE with saddle emboli during confinement. Patient discharged on Daptomycin course, Coumadin to [facility] for rehab. Patient left [facility] AGAINST MEDICAL ADVICE 2 weeks ago. Patient has been seen at PCPs office and followed by [facility] at home the last 2 weeks. Some confusion regarding patient intake of Coumadin twice a day as per outpatient notes. 3 days ago patient noted bloody spots on stools without abdominal pain. She woke up yesterday morning with a black eye on the left. Vision okay. No trauma recollection. Denies headache symptoms. Legs more swollen than usual, shortness of breath on exertion as per patient. Patient seen at PCPs office yesterday. Noted to have scleral hemorrhage on the left as per note. Outpatient labs requested. At home, patient noted bloody diarrhea without pain. No hematemesis, coffee-ground emesis. Legs more swollen than usual, shortness of breath on exertion as per patient. CBC resulted later as 6.3, INR of 8.7. Patient directed to the ER by PCP. At the ER, patient received IV vitamin K. 1 unit packed RBC transfusion initiated at the ER. 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[place], [place] Admission Exam Per Admitting Provider Physical Exam: GENERAL: Comfortable, somewhat apathetic, obese, no respiratory distress SKIN: Pallor , warm HEENT: periorbital ecchymosis left, pale palpebral conjunctivae, no ptosis, dry buccal mucosa NECK : Supple, short neck, no tenderness CHEST : Decreased breath sounds, occasional wheeze , no tenderness HEART : RRR, no obvious murmurs ABDOMEN: Some distention, nontender EXTREMITIES : asuncion LE swelling/tenderness, no other conspicuous deformities noted NEUROLOGIC : Coherent, L facial asymmetry, no other gross focality Principal Diagnosis Lower GI bleed complicated by high INR-resolved, acute on chronic anemia status post 1 unit of blood transfusion, ALL on chemotherapy Discharge Exam Constitutional well developed and well nourished; no acute distress Eyes + eyelid abnormality (Ecchymosis in the left) ENMT external ear and nose normal, oropharynx normal Neck trachea midline, no thyromegaly Respiratory normal respiratory effort; no respiratory distress Auscultation: lungs clear to auscultation bilaterally Cardiovascular Rate/Rhythm: regular rate and regular rhythm Heart Sounds: no murmur Gastrointestinal (Abdomen) Inspection/Auscultation: abdomen normal to inspection and normal bowel sounds Percussion/Palpation: abdomen soft; abdomen nontender Neurologic PERRL, EOMI, accommodation nl, no face palsy, no dysarthria Lymphatic no cervical or axillary lymphadenopathy Discharge Data Allergies Allergy/AdvReac Type Severity Reaction Status Date / Time No Known Allergies Allergy Verified 10/04/18 01:00 Consultations 10/04/18 01:51 ED Decision to Admit Stat 10/04/18 03:21 Consult Case Management - Discharge Planning Routine 10/05/18 13:01 Consult Case Management - Discharge Planning Routine Ordered Studies 10/04/18 00:11 CT head/brain wo con Urgent 10/04/18 00:35 US venous doppler LE LT Urgent 10/04/18 05:49 US venous doppler LE RT Routine Hospital Course (1) GI (gastrointestinal bleed): Lower GI bleed secondary to Coumadin coagulopathy Blood in the stool was no longer found in hospital He denies any acute symptoms Stool for C. difficile was not collected Status post 1 unit of PRBC Hemoglobin remained more than 80 for the last 2 days Acute on chronic anemia secondary to blood loss Possibility of side effect of any chemotherapeutic medication Discussed with hydrologic engineer We will continue current chemotherapeutic drugs Acute kidney injury Renal function improved Chronic respiratory failure secondary to COPD on home O2 No acute issues We will continue home oxygen hx ALL ongoing Sprycel chemotherapy Discussed with hydrologic engineer-we will continue chemotherapeutic Hypertension, stable DM 2 insulin requiring, well-controlled as of recent outpatient hemoglobin A1c PT OT eval DVT prophylaxis. SCDs if INR less than 2 while Coumadin on hold DNR We will discharge home today Total Time Total Time Spent Total Time Spent (In Minutes): 35 minutes Total Time Includes: Examination of the Patient, Discharge Planning, Medication Reconciliation and Communication With Other Providers Discharge Plan Discharge Items Patient Disposition: Home - Home Health Services Reason For Visit: ANEMIA, GI BLEED Discharge Diagnosis: Lower GI bleed complicated by high INR-resolved, acute on chronic anemia status post 1 unit of blood transfusion, ALL on chemotherapy Condition: Good Discharge Goals: Decrease discomfort and Improve function Activity: Resume your previous activity Non-emergency contact: Primary Care Provider Call non-emergency contact if: you have any medication questions and your symptoms worsen Follow-up/Referrals: Natalia Brambila DO [Primary Care Provider] - 10/12/18 10:55 am (Your appointment with the coagulation clinic at [place] on 10/09 at 1:10 PM) Diet: Carb Consistent or DM2 Addtl Provider Instructions: Please take precaution to avoid fall. Take your Coumadin as directed by the coagulation clinic. Prescriptions: Continued atorvastatin 40 mg Tablet 40 mg PO HS RF: 0 fluticasone propion-salmeterol [Advair Diskus] 250-50 mcg/dose Blister With Device 1 inh INHALATION BID RF: 0 tramadol 50 mg Tablet 50 mg PO Q6H PRN (Reason: Pain) RF: 0 omeprazole 20 mg Capsule,Delayed Release(Dr/Ec) 20 mg PO BID RF: 0 acyclovir 400 mg Tablet 400 mg PO BID RF: 0 allopurinol 300 mg Tablet 300 mg PO DAILY RF: 0 nitroglycerin [Nitrostat] 0.4 mg Tablet, Sublingual 0.4 mg Sublingual DIRECTED PRN (Reason: Chest Pain) RF: 0 bumetanide 1 mg Tablet 1 mg PO BID RF: 0 insulin aspart U-100 100 unit/mL Cartridge 6 units SUBCUT TIDM RF: 0 Levemir U-100 Insulin 100 unit/mL Solution 18 units SUBCUT QAM RF: 0 Levemir FlexTouch U-100 Insuln 100 unit/mL (3 mL) Insulin Pen 14 units SUBCUT QPM RF: 0 escitalopram oxalate 5 mg Tablet 5 mg PO DAILY RF: 0 Women's Multivitamin 18 mg iron-400 mcg-500 mg Tablet 1 tab PO DAILY RF: 0 Sprycel 70 mg Tablet 70 mg PO BID RF: 0 dapsone 100 mg Tablet 100 mg PO DAILY RF: 0 albuterol sulfate 90 mcg/actuation Hfa Aerosol Inhaler 2 puff INHALATION Q6H PRN (Reason: Shortness Of Breath) RF: 0 acetaminophen [Mapap (acetaminophen)] 325 mg Tablet 650 mg PO Q4H PRN (Reason: fever or pain) Qty: 100 RF: 0 metoprolol succinate 50 mg Tablet Extended Release 24 Hr 50 mg PO BID Qty: 60 RF: 0 lisinopril [Zestril] 10 mg Tablet 10 mg PO BID Qty: 60 RF: 0 ondansetron HCl 4 mg Tablet 4 mg PO TID PRN (Reason: Nausea And Vomiting) RF: 0 warfarin [Coumadin] 5 mg tablet 5 mg PO DAILY@2099 RF: 0 Discontinued warfarin 7.5 mg Tablet 7.5 mg PO DAILY@2099 RF: 0 Stand-Alone Forms: [facility] Discharge Orders: Discharge Order (Routine); Ordered 10/05/18 Ordered By: Munir Shields Admission Data Admit Date/Time: 10/04/18 02:26 Attending Provider: Munir Shields Admit Provider: Marcos Marshall Primary Care Provider: Natalia Brambila Other Providers: Marcos Marshall Service: Telemetry Medical Other Interventions: Discharge Summary Assessment (RN) Last Done: 10/05/18 14:40 DC Date/Time DO NOT enter until pt leaves facility: 10/05/18 15:04
== END 2018-10-05 15:04 | disposition home health service (06) | DRG 813 ==
LOC: ED 23:55 → 2N 10-04 02:26

== ENCOUNTER 2019-02-23 11:30 | Inpatient (IN) ==
[2019-02-23 12:15] LABS: Basophils # (auto) 0.03 K/uL (0-0.2); Basophils % (auto) 0.6 %; Eosinophils # (auto) 0.16 K/uL (0-0.5); Eosinophils % (auto) 3.4 %; Hematocrit (blood only) 31.1 % (37-47); Hemoglobin 9.8 g/dL (12.0-16.0); Immature Granulocytes # (auto) 0.01 K/uL (0.00-0.02); Immature Granulocytes % (auto) 0.2 %; Lymphocytes # (auto) 0.78 K/uL (1.2-3.4); Lymphocytes % (auto) 16.4 %; Mean Corpuscular Hemoglobin 31.3 pg (25-34); Mean Corpuscular Hgb Conc 31.5 g/dL (32-36); Mean Corpuscular Volume 99.4 fL (80-100); Mean Platelet Volume 8.7 fL (7.4-10.4); Monocytes # (auto) 0.52 K/uL (0.11-0.59); Monocytes % (auto) 10.9 %; Neutrophils # (auto) 3.27 K/uL (1.4-6.5); Neutrophils % (auto) 68.5 %; Platelet Count 189 K/uL (130-400); RDW Coefficient of Variation 17.2 % (11.5-14.5); RDW Standard Deviation 62.8 fL (36.4-46.3); Red Blood Count 3.13 M/uL (4.2-5.4); White Blood Count 4.77 K/uL (4.8-10.8)
[2019-02-23 12:25] LABS: Alanine Aminotransferase 25 U/L (12-78); Albumin Globulin Ratio 1.1 (0.9-2); Albumin Level 3.4 gm/dl (3.4-5.0); Aspartate Aminotransferase 29 U/L (15-37); BUN Creatinine Ratio 10.7 (10-20); Bilirubin,Total 0.6 mg/dl (0.2-1); Blood Urea Nitrogen 12 mg/dl (7-18); Calcium 8.5 mg/dl (8.5-10.1); Carbon Dioxide 31 mmol/L (21-32); Chloride 106 mmol/L (98-107); Creatinine Clr Calc Pharmacy 55.5 ml/min; Est GFR (African American) 58.7; Est GFR (Non-African American) 50.7; Glucose 95 mg/dl (70-99); Potassium 3.9 mmol/L (3.5-5.1); Sodium 142 mmol/L (136-145); Total Protein 6.4 gm/dl (6.4-8.2)
[2019-02-23 12:27] LABS: Alkaline Phosphatase 102 U/L (45-117); Troponin I < 0.015 ng/ml (0-0.045)
[2019-02-23 12:29] LABS: Appearance Urine Clear (Clear); Bacteria Urine Automated Negative (Negative); Bilirubin Urine Negative (Negative); Blood Urine 1+ (Negative); Color Urine Yellow; Epithelial Cell Urine Auto 0-5 /lpf (0-5); Glucose Urine UA Negative (Negative); Ketones Urine Negative (Negative); Leukocyte Esterase Urine Trace (Negative); Nitrite Urine Negative (Negative); Protein Urine Trace (Negative); RBC Urine Automated 0-4 /hpf (0-4); Urobilinogen Urine Negative (Negative); pH Urine 6.5 (4.5-7.5)
[2019-02-23 12:33] LABS: Partial Thromboplastin Ratio 1.5; Partial Thromboplastin Time 39.4 Seconds (21.0-31.0); Prothrombin Time 33.8 Seconds (9.0-12.0)
[2019-02-23 12:37] LABS: INR 3.6 (0.9-1.1)
[2019-02-23 12:49] LABS: Base Excess VBG 6.2 mEq/L; HCO3 VBG 32 mmol/L; Oxygen Saturation VBG < 60.0 %; PCO2 VBG 53 mmHg (38-50); PO2 VBG 25 mmHg
--- NOTE | 2019-02-23 12:50 | XRay Report ---
XR chest 1V portable HISTORY: Shortness of breath. COMPARISON: Chest 10/04/2018. FINDINGS: No pneumothorax. The heart remains enlarged. Progressive interstitial and vascular thickeni ng consistent with pulmonary edema. Moderate left and small right pleural effusions have also increas ed in size. Left basilar densities favor compressive atelectasis from the pleural effusion. Calcified granuloma within the left midlung zone, unchanged. IMPRESSION: Interval progression of mild pulmonary edema and bilateral pleural effusions. Electronically signed by: Ricardo Villanueva M.D. 02/23/2019 12:49 PM
[2019-02-23 13:11] LABS: NT Pro B Type Natriuretic Pept 591 pg/ml (0-900)
[2019-02-23 13:14] LABS: Influenza A virus by PCR Neg for Influ A (Neg); Influenza B virus by PCR Neg for Influ B (Neg)
--- NOTE | 2019-02-23 15:07 | History & Physical Report ---
Date of Service February 23, 2019 Assessment & Plan (1) Dyspnea on exertion: (2) Pleural effusion: Pt is 73 y/o F with PMH ALL diagnosed in 04/2018, PE Dx in 05/2018 on Coumadin, COPD, chronic respiratory failure on 3L oxygen, insulin dependent DM, chronic BLE edema, CKD III, chronic anemia, HTN, dyslipidemia presented with c/o increased SOB on exertion x 2 weeks. Has noticed increased lower extremity edema for the past 1.5 weeks. Patient stopped taking Bumex for the past 4 weeks because she is tired of getting up to urinate. Reported yellow productive cough x 2 weeks. 3 days ago with episode of hemoptysis, none further. Denies fever/chills, rhinorrhea, CP. In ER afebrile, P: 86, R: 17, BP: 168/59, 96% on 3L NC. WBC: 4.7, H/H: 9.8/31, INR: 3.6, negative troponin. BNP: 507. Negative influenza swab. EKG without acute ST changes. CXR: Moderate left sided pleural effusion, small right sided pleural effusion. Interval progression of mild pulmonary edema Exertional dyspnea. DDX: pleural effusion, fluid overload, COPD exacerbation. Does not appear pneumonia at this time -Hold home Bumex -Lasix 40mg IV BID -Monitor I&O's and daily weight. Low sodium diet -Pulmonology consult -Monitor CBC, BMP (3) Chronic respiratory failure: (4) COPD (chronic obstructive pulmonary disease): On chronic oxygen at 3L via nasal cannula -Continue home oxygen -Continue Advair -Continue Duonebs BID and prn (5) Pulmonary embolism: (6) Supratherapeutic INR: Dx PE in 05/2018. On Coumadin INR: 3.6 -Hold Coumadin -Monitor INR -Anticipate when INR goes below 2, will add Heparin drip in anticipation of pulmonology procedure (7) ALL (acute lymphoblastic leukemia): Diagnosed in 04/[address] Nix -Continue dasatinib (8) Hypertension: -Continue metoprolol (9) Anemia: Chronic anemia Hgb: 9.8. Baseline 8.7-10) -Monitor H&H (10) Diabetes mellitus: A1c: 5.4 on 01/07/19 -Continue home Levemir -Novolog sliding scale per protocol (11) CKD (chronic kidney disease), stage III: Cr: 1.09. Baseline: 1.0-1.3 -Monitor renal functions -Avoid nephrotoxic agents when possible (12) Dyslipidemia: -Continue statin DVT Prophylaxis -On Coumadin Full Code as per discussion with pt Follows with Dr Natalia Brambila for routine care Pt was seen and care coordinated with Dr Aguilera. See addendum History of Present Illness Chief Complaint: SOB Primary Care Provider: Natalia Brambila DO Pt is 73 y/o F with PMH ALL diagnosed in 04/2018, PE Dx in 05/2018 on Coumadin, COPD, chronic respiratory failure on 3L oxygen, insulin dependent DM, chronic BLE edema, CKD III, chronic anemia, HTN, dyslipidemia presented to ER with c/o increased SOB. Patient reports increased shortness of breath for approximately 2 weeks. Worse with exertion. Has noticed increased lower extremity edema for the past 1.5 weeks. Patient admits to not taking her Bumex for the past 4 weeks because she is tired of getting up to urinate. Today was seen by [facility] and had noted increased extremity edema and pt was given her Bumex 1mg today. Patient reports cough for the past 2 weeks. Sometimes cough productive yellow sputum. Reports 3 days ago had red blood mixed in sputum after coughing. No further hemoptysis. Usually uses her DuoNeb twice a day however yesterday required using it 3 times. Unsure if that helped much with SOB. Denies noted wheezing. Denies CP, fever/chills, diaphoresis, N/V/D/C, SAUL, dizziness, syncope, vision changes, neck pain, orthopnea, palpitations, sore throat, choking, otalgia, rhinorrhea, abdominal pain, paresthesias, weakness, rashes, urinary symptoms. Allergies Allergy/AdvReac Type Severity Reaction Status Date / Time No Known Allergies Allergy Verified 02/23/19 13:22 Home Medications Home Medications Medication Instructions Recorded Confirmed Type fluticasone propion-salmeterol 1 inh INHALATION BID 04/05/18 02/23/19 History [Advair Diskus] tramadol 50 mg PO Q6H PRN 04/05/18 02/23/19 History Levemir FlexTouch U-100 Insuln 10 units SUBCUT QPM 06/09/18 02/23/19 History allopurinol 300 mg PO DAILY 06/09/18 02/23/19 History Sprycel 70 mg PO BID 06/12/18 02/23/19 History Women's Multivitamin 1 tab PO QAM 06/12/18 02/23/19 History albuterol sulfate 2 puff INHALATION Q6H PRN 06/12/18 02/23/19 History acetaminophen [Mapap 650 mg PO Q4H PRN #100 tab 07/03/18 02/23/19 Rx (acetaminophen)] warfarin [Coumadin] 5 mg PO QAM 08/29/18 02/23/19 History atorvastatin 40 mg PO PM 02/23/19 02/23/19 History bumetanide 1 mg PO DAILY 02/23/19 02/23/19 History insulin detemir U-100 [Levemir 14 unit SUBCUT QAM 02/23/19 02/23/19 History FlexTouch U-100 Insuln] ipratropium-albuterol 3 ml INHALATION BID 02/23/19 02/23/19 History ipratropium-albuterol 3 ml INHALATION QID PRN 02/23/19 02/23/19 History lorazepam 0.5 mg SUBLINGUAL BID PRN 02/23/19 02/23/19 History metoprolol succinate 25 mg PO DAILY 02/23/19 02/23/19 History potassium chloride 20 meq PO DAILY 02/23/19 02/23/19 History Past Med/Surg History Medical History COPD (chronic obstructive pulmonary disease) (Chronic) Chronic respiratory failure (Chronic) Diabetes mellitus (Chronic) MRSA (methicillin resistant Staphylococcus aureus) septicemia (Resolved) Mucoid impaction of bronchi (Resolved) Pulmonary embolism (Chronic) Acute hypoxemic respiratory failure (Resolved) Secondary hyperparathyroidism (Chronic) Bacteremia (Resolved) Leg edema (Chronic) Lumbar disc disease (Chronic) Tobacco use (Resolved) Depression (Chronic) Splenomegaly (Chronic) ALL (acute lymphoblastic leukemia) (Chronic) Osteoarthritis (Chronic) GERD (gastroesophageal reflux disease) (Chronic) Nocturnal hypoxia (Chronic) Moderate COPD (chronic obstructive pulmonary disease) (Chronic) CKD (chronic kidney disease), stage III (Chronic) Dyslipidemia (Chronic) Hypertension (Chronic) DM type 2 (diabetes mellitus, type 2) (Chronic) Diabetes mellitus, type II (Inactive) EKG abnormalities (Inactive) GERD (gastroesophageal reflux disease) (Inactive) Ovarian cyst (Inactive) Surgical History H/O tubal ligation (Chronic) History of cholecystectomy (Chronic) Social History Preferred Language: [place] Communication Ability: Effective Visual Impairment: No Limitations Hearing Ability: Normal 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 Beliefs That Will Affect Care: None Current Living Situation: Alone Current Living Situation Comment: House Feels Safe at Home: Yes Smoking Status: Former smoker Hx Alcohol Use: No Hx Substance Use: No Review of Systems Review of Systems: All systems reviewed & are unremarkable except as noted in HPI & below Physical Exam Physical Exam: General: no acute distress on 3L oxygen nasal cannula, obese Head: normocephalic, atraumatic Eyes: PERRL, EOM's intact, conjunctiva non-injected, anicteric ENT: normal inspection external ears, nose, mucous membranes moist Neck: supple, trachea midline Lungs: R:20, 96% on 3L oxygen NC, no retractions, Left mid and lower lung with decreased breath sounds, RLL with rhonchi CV: RRR, no murmur, 1+ bilateral pretibial edema Abd: normal BS, soft, non-tender Ext: no cyanosis, no calf tenderness; no erythema Neuro: A&O x 3, no focal deficits noted, normal affect Skin: warm, dry Results & Data Vital Signs (Past 12 Hours) Vital Signs Temp Pulse Resp BP Pulse Ox 02/23/19 14:30 83 24 176/76 H 96 02/23/19 13:31 76 24 98 02/23/19 13:30 80 16 165/62 H 97 02/23/19 13:01 77 19 02/23/19 13:00 77 21 155/61 H 96 02/23/19 12:55 78 18 97 02/23/19 12:54 79 17 171/68 H 98 02/23/19 12:30 87 24 96 02/23/19 12:00 82 21 97 02/23/19 11:41 84 23 96 02/23/19 11:40 37.2 C 86 17 168/59 H 96 Laboratory Results Short CBC 02/23/19 Range/Units 11:40 WBC 4.77 L (4.8-10.8) K/uL Hgb 9.8 L (12.0-16.0) g/dL Hct 31.1 L (37-47) % Plt Count 189 (130-400) K/uL BMP 02/23/19 11:40 Sodium 142 Potassium 3.9 Chloride 106 Carbon Dioxide 31 BUN 12 Creatinine 1.09 Glucose 95 Calcium 8.5 Cardiac Enzymes 02/23/19 Range/Units 11:40 Troponin I < 0.015 (0-0.045) ng/ml Liver Function 02/23/19 Range/Units 11:40 Total Bilirubin 0.6 (0.2-1) mg/dl AST 29 (15-37) U/L ALT 25 (12-78) U/L Alkaline Phosphatase 102 (45-117) U/L Albumin 3.4 (3.4-5.0) gm/dl Urine 02/23/19 Range/Units 12:10 Urine Color Yellow Urine Appearance Clear (Clear) Urine pH 6.5 (4.5-7.5) Ur Specific [place] 1.010 (1.000-1.030) Urine Protein Trace H (Negative) Urine Glucose (UA) Negative (Negative) Diagnostic Findings CXR: IMPRESSION: Interval progression of mild pulmonary edema and bilateral pleural effusions. ECG Rate (beats per minute): 85 Rhythm: normal sinus Code Status & VTE Plan VTE Prophylaxis Plan VTE Prophylaxis will be ordered: Yes Supervising Physician Co-Signing Physician Notes I, Dr. Nicholas Aguilera, have seen and examined the patient with physician golf player assistant and agree with the assessment at plan as above and would like to comment that This is a 73 year old female with history of Acute lymphocytic leukemia (ALL), has chronic respiratory failure with hypoxia, uses supplementary oxygen at home, anticoagulated on coumadin with admission supratheraeutic INR of 3.6 for history of pulmonary embolism who presents with complaints of worsening dyspnea and found on Chest X ray to have increased pleural effusions. admission CXR COMPARISON: Chest 10/04/2018. FINDINGS: No pneumothorax. The heart remains enlarged. Progressive interstitial and vascular thickening consistent with pulmonary edema. Moderate left and small right pleural effusions have also increased in size. Left basilar densities favor compressive atelectasis from the pleural effusion. Calcified granuloma within the left midlung zone, unchanged. On physical exam General: comfortable, speaking in full sentences on nasal cannula Lungs: Left mid and lower lung with decreased breath sounds, RLL with rhonchi Heart: regular rate Abdomen: soft, nontender, positive bowel sounds Extremities: no gross edema -discussed with patient that the increases in pleural effusions may warrant thoracentesis for diagnostic an therapeutic indications -however given that patient has supratherapeutic INR, will continue to hold coumadin, invasive procedures at this time will lead to bleeding risk -because patient's indication for anticoagulation is for pulmonary embolism, if patient elects to have thoracentesis performed, then patient may need to be transitioned to heparin drip when INR is subtherapeutic -however patient not able to decide at this time whether she would want thoracentesis or not -will request pulmonary consult -will hold off home medication of bumetanide and use IV Lasix BID as medical management of pleural effusions at this time -monitor renal function in regards to chronic kidney disease stage III when on increased diuretics -other management of medical issues including hypertension, diabetes mellitus type II, and anemia as documented by physician golf player assistant My colleague Dr. Fontaine will be following the patient starting on 02/24/19 (1) Anemia Anemia type: unspecified type Qualified Code(s): D64.9 - Anemia, unspecified (2) Pulmonary embolism Acute cor pulmonale presence: without acute cor pulmonale Chronicity: unspecified Pulmonary embolism type: saddle Qualified Code(s): I26.92 - Saddle embolus of pulmonary artery without acute cor pulmonale
[2019-02-23 15:58] LABS: C Reactive Protein < 0.29 mg/dl (0-0.29)
[2019-02-23] MEDS ORDERED: GLUCOSE 40% GEL 15 GM TUBE PO PRN (17:39)
[2019-02-23] MEDS ORDERED: GLUCAGON FOR INJ 1 MG VIAL SQ PRN (17:39)
[2019-02-23] MEDS ORDERED: CARBOHYDRATES FOR HYPOGLYCEMIA PO PRN (17:39)
[2019-02-23] MEDS ORDERED: GLUCOSE 10 TABS/TUBE PO PRN (17:39)
[2019-02-23] MEDS ORDERED: LORazepam 0.5 MG TAB SL PRN (17:39)
[2019-02-23] MEDS ORDERED: ACETAMINOPHEN 325 MG TAB PO PRN (17:39)
[2019-02-23] MEDS ORDERED: DEXTROSE 50% 50 ML SYRINGE IV PRN (17:39)
[2019-02-23] MEDS ORDERED: ALBUT/IPRATROP 3MG/0.5MG NEB 3 ML VIAL NEB PRN (17:39)
--- NOTE | 2019-02-23 18:29 | Emergency Department Note ---
Entered by Xiomara Blackwood acting as a scribe for Noel Esquivel History of Present Illness General Chief complaint: Shortness of Breath/Dyspnea Time Seen by Provider: 02/23/19 12:08 Source: patient History of Present Illness Onset (ago): week(s) (several) Location: chest Pain Consistency: + other (persistent ) Quality: + other (shortness of breath) Associated symptoms: + chest pain (discomfort; negative pain), + cough (bright red blood in phlegm) and + other (positive swelling in feet; negative blood in stools; negative blood in urine; negaive abdominal pain); no fever/chills The patient is a 73 year old female who presents to the Emergency Room with complaints of persistent shortness of breath that began several weeks prior to arrival. The patient states that several days ago she coughed up phlegm that had bright red blood in it. She reports chest discomfort, but denies pain. The patient states that she has some swelling in her feet. The patient denies blood in her stools, blood in her urine, fever, and abdominal pain. She denies any recent falls or hitting her head. The patient denies any recent weight gain. She states that she is on Coumadin, and denies missing any doses. Home Medications Home Medications Medication Instructions Recorded Confirmed Type fluticasone propion-salmeterol 1 inh INHALATION BID 04/05/18 02/23/19 History [Advair Diskus] tramadol 50 mg PO Q6H PRN 04/05/18 02/23/19 History Levemir FlexTouch U-100 Insuln 10 units SUBCUT QPM 06/09/18 02/23/19 History allopurinol 300 mg PO DAILY 06/09/18 02/23/19 History Sprycel 70 mg PO BID 06/12/18 02/23/19 History Women's Multivitamin 1 tab PO QAM 06/12/18 02/23/19 History albuterol sulfate 2 puff INHALATION Q6H PRN 06/12/18 02/23/19 History acetaminophen [Mapap 650 mg PO Q4H PRN #100 tab 07/03/18 02/23/19 Rx (acetaminophen)] warfarin [Coumadin] 5 mg PO QAM 08/29/18 02/23/19 History atorvastatin 40 mg PO PM 02/23/19 02/23/19 History bumetanide 1 mg PO DAILY 02/23/19 02/23/19 History insulin detemir U-100 [Levemir 14 unit SUBCUT QAM 02/23/19 02/23/19 History FlexTouch U-100 Insuln] ipratropium-albuterol 3 ml INHALATION BID 02/23/19 02/23/19 History ipratropium-albuterol 3 ml INHALATION QID PRN 02/23/19 02/23/19 History lorazepam 0.5 mg SUBLINGUAL BID PRN 02/23/19 02/23/19 History metoprolol succinate 25 mg PO DAILY 02/23/19 02/23/19 History potassium chloride 20 meq PO DAILY 02/23/19 02/23/19 History Allergies Allergy/AdvReac Type Severity Reaction Status Date / Time No Known Allergies Allergy Verified 02/23/19 13:22 Past Med/Surg History Medical History COPD (chronic obstructive pulmonary disease) (Chronic) Chronic respiratory failure (Chronic) Diabetes mellitus (Chronic) MRSA (methicillin resistant Staphylococcus aureus) septicemia (Resolved) Mucoid impaction of bronchi (Resolved) Pulmonary embolism (Chronic) Acute hypoxemic respiratory failure (Resolved) Secondary hyperparathyroidism (Chronic) Bacteremia (Resolved) Leg edema (Chronic) Lumbar disc disease (Chronic) Tobacco use (Resolved) Depression (Chronic) Splenomegaly (Chronic) ALL (acute lymphoblastic leukemia) (Chronic) Osteoarthritis (Chronic) GERD (gastroesophageal reflux disease) (Chronic) Nocturnal hypoxia (Chronic) Moderate COPD (chronic obstructive pulmonary disease) (Chronic) CKD (chronic kidney disease), stage III (Chronic) Dyslipidemia (Chronic) Hypertension (Chronic) DM type 2 (diabetes mellitus, type 2) (Chronic) Diabetes mellitus, type II (Inactive) EKG abnormalities (Inactive) GERD (gastroesophageal reflux disease) (Inactive) Ovarian cyst (Inactive) Surgical History H/O tubal ligation (Chronic) History of cholecystectomy (Chronic) Social History Preferred Language: Togolese Communication Ability: Effective Visual Impairment: No Limitations Hearing Ability: Normal 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 and A total of 10 systems reviewed and were otherwise negative Physical Exam Vital Signs Vital Signs - 24 hr 02/23/19 11:40 02/23/19 11:41 02/23/19 12:00 Temperature 37.2 C Temperature Source Oral Sepsis Recent Fever Within 48 Hours No Sepsis New/Unexplained Change in Mental Status No Sepsis Action Taken by Nursing No Action Required Pulse Rate 86 84 82 Pulse Rate from SpO2 Sensor 84 83 Respiratory Rate 17 23 21 Respiratory Effort / Characteristics Non-Labored Spontaneous Respiratory Depth Normal Respiratory Pattern Regular Blood Pressure 168/59 H Blood Pressure Mean 95 Blood Pressure Position Sitting Pulse Oximetry 96 96 97 Oxygen Delivery Method Nasal Cannula Nasal Cannula Oxygen Flow Rate 3 3 3 02/23/19 12:30 02/23/19 12:54 02/23/19 12:55 Temperature Temperature Source Sepsis Recent Fever Within 48 Hours Sepsis New/Unexplained Change in Mental Status Sepsis Action Taken by Nursing Pulse Rate 87 79 78 Pulse Rate from SpO2 Sensor 84 79 79 Respiratory Rate 24 17 18 Respiratory Effort / Characteristics Respiratory Depth Respiratory Pattern Blood Pressure 171/68 H Blood Pressure Mean 102 Blood Pressure Position Pulse Oximetry 96 98 97 Oxygen Delivery Method Nasal Cannula Nasal Cannula Oxygen Flow Rate 3 3 02/23/19 13:00 02/23/19 13:01 02/23/19 13:30 Temperature Temperature Source Sepsis Recent Fever Within 48 Hours Sepsis New/Unexplained Change in Mental Status Sepsis Action Taken by Nursing Pulse Rate 77 77 80 Pulse Rate from SpO2 Sensor 78 80 Respiratory Rate 21 19 16 Respiratory Effort / Characteristics Respiratory Depth Respiratory Pattern Blood Pressure 155/61 H 165/62 H Blood Pressure Mean 92 96 Blood Pressure Position Pulse Oximetry 96 97 Oxygen Delivery Method Nasal Cannula Nasal Cannula Oxygen Flow Rate 3 3 02/23/19 13:31 02/23/19 14:30 Temperature Temperature Source Sepsis Recent Fever Within 48 Hours Sepsis New/Unexplained Change in Mental Status Sepsis Action Taken by Nursing Pulse Rate 76 83 Pulse Rate from SpO2 Sensor 77 83 Respiratory Rate 24 24 Respiratory Effort / Characteristics Respiratory Depth Respiratory Pattern Blood Pressure 176/76 H Blood Pressure Mean 109 Blood Pressure Position Pulse Oximetry 98 96 Oxygen Delivery Method Nasal Cannula Nasal Cannula Oxygen Flow Rate 3 3 GENERAL: She is oriented to person, place, and time. She appears well-developed and well-nourished. She does not appear distressed. HENT: Exam performed. - Head: Normocephalic and atraumatic. - Right Ear: External ear normal. No mastoid tenderness. - Left Ear: External ear normal. No mastoid tenderness. - Mouth/Throat: The oropharynx is clear and moist. No trismus in the jaw. No dental abscesses or uvula swelling. No oropharyngeal exudate or tonsillar ab scesses. EYES: Conjunctivae and EOM are normal. Pupils are equal, round, and reactive to light. Right eye exhibits no discharge. Left eye exhibits no discharge. No scleral icterus. NECK: Normal range of motion. Neck supple. No JVD present. No spinous process tenderness present. No carotid bruit present. No rigidity. No tracheal deviation and normal range of motion present. No Brudzinski's sign and no Kernig's sign noted. CV: Normal rate, regular rhythm, normal heart sounds and intact distal pulses. There is no peripheral edema. Palpable radial pulses bue. PULM/CHEST: Rales bilaterally. Effort normal. No respiratory distress. No stridor. She has no wheezes. Chest Wall: She exhibits no tenderness. ABD: The abdomen is soft. Bowel sounds are normal. She has no distension. No mass is present. There is no tenderness. There is no rebound, no guarding, no Galan's sign and no tenderness at McBurney's point. Rovsig negative MUSC/SKEL: Normal range of motion. There is no peripheral edema, tenderness or deformity. LYMPH: No cervical adenopathy. NEURO: She is alert and oriented to person, place, and time. She has normal strength. No cranial nerve deficit or sensory deficit. Coordination and gait normal. GCS eye subscore is 4. GCS verbal subscore is 5. GCS motor subscore is 6. cerbellar tests wnl. SKIN: Skin is warm and dry. She is not diaphoretic. PSYCH: She has a normal mood and affect. Her behavior is normal. Judgment and thought content normal. Course 1217: Past medical records reviewed. The patient was evaluated in room C4. A complete history and physical exam was performed. The patient's EMR was reviewed and showed that the patient has COPD chronically and wears 3L of oxygen at home. The patient has a history of CKD stage 3, hypertension, hyperlipidemia, diabetes, PE on Coumadin, and GI bleed. 1334: The patient's vital signs are stable on her home oxygen. Her labs and imaging show signs of worsening pleural effusions. The patient tried to get up to go to the bathroom when she became severely shortness of breath. The patient will be further evaluated for her dyspnea on exertion and pleural effusion. No thoracentesis will be performed given her supratherapeutic INR. I discussed the case with Angela Lambert PA-C who accepts the patient for further evaluation under Dr. Hilton Hospitalist service. Medical Decision Making Medical Records Attestation: I reviewed the patient's medical records. Home Medications Current Medication List: was personally reviewed by me Laboratory Data Attestation: I reviewed the patient's lab results. Result diagrams: 02/23/19 11:40 02/23/19 11:40 Lab Results 02/23/19 02/23/19 02/23/19 Range/Units 11:40 11:40 11:40 WBC 4.77 L (4.8-10.8) K/uL RBC 3.13 L (4.2-5.4) M/uL Hgb 9.8 L (12.0-16.0) g/dL Hct 31.1 L (37-47) % MCV 99.4 (80-100) fL MCH 31.3 (25-34) pg MCHC 31.5 L (32-36) g/dL RDW Std Deviation 62.8 H (36.4-46.3) fL RDW Coeff of Yariel 17.2 H (11.5-14.5) % Plt Count 189 (130-400) K/uL MPV 8.7 (7.4-10.4) fL Immature Gran % (Auto) 0.2 % Neut % (Auto) 68.5 % Lymph % (Auto) 16.4 % Lamar % (Auto) 10.9 % Eos % (Auto) 3.4 % Baso % (Auto) 0.6 % Immature Gran # (Auto) 0.01 (0.00-0.02) K/uL Neut # (Auto) 3.27 (1.4-6.5) K/uL Lymph # (Auto) 0.78 L (1.2-3.4) K/uL Lamar # (Auto) 0.52 (0.11-0.59) K/uL Eos # (Auto) 0.16 (0-0.5) K/uL Baso # (Auto) 0.03 (0-0.2) K/uL ESR (0-21) mm/hr PT 33.8 H (9.0-12.0) Seconds INR 3.6 H (0.9-1.1) APTT 39.4 H (21.0-31.0) Seconds PTT Ratio 1.5 VBG pH (7.36-7.41) VBG pCO2 (38-50) mmHg VBG pO2 mmHg VBG HCO3 mmol/L VBG O2 Saturation % VBG Base Excess mEq/L Barometric Pressure mm/Hg Sodium 142 (136-145) mmol/L Potassium 3.9 (3.5-5.1) mmol/L Chloride 106 (98-107) mmol/L Carbon Dioxide 31 (21-32) mmol/L Anion Gap 5.0 (3-11) BUN 12 (7-18) mg/dl Creatinine 1.09 (0.6-1.2) mg/dl Est Cr Clr Drug Dosing 55.5 ml/min Est GFR ( Amer) 58.7 Est GFR (Non-Af Amer) 50.7 BUN/Creatinine Ratio 10.7 (10-20) Glucose 95 (70-99) mg/dl Calcium 8.5 (8.5-10.1) mg/dl Magnesium (1.8-2.4) mg/dl Total Bilirubin 0.6 (0.2-1) mg/dl AST 29 (15-37) U/L ALT 25 (12-78) U/L Alkaline Phosphatase 102 (45-117) U/L Troponin I < 0.015 (0-0.045) ng/ml C-Reactive Protein (0-0.29) mg/dl NT-Pro-B Natriuret Pep (0-900) pg/ml Total Protein 6.4 (6.4-8.2) gm/dl Albumin 3.4 (3.4-5.0) gm/dl Globulin 3.0 (2.5-4.0) gm/dl Albumin/Globulin Ratio 1.1 (0.9-2) Procalcitonin (0-0.5) ng/ml Urine Color Urine Appearance (Clear) Urine pH (4.5-7.5) Ur Specific [place] (1.000-1.030) Urine Protein (Negative) Urine Glucose (UA) (Negative) Urine Ketones (Negative) Urine Blood (Negative) Urine Nitrite (Negative) Urine Bilirubin (Negative) Urine Urobilinogen (Negative) Ur Leukocyte Esterase (Negative) Urine WBC (Auto) (0-5) /hpf Urine RBC (Auto) (0-4) /hpf U Hyaline Cast (Auto) (0-5) /lpf U Epithel Cells (Auto) (0-5) /lpf Urine Bacteria (Auto) (Negative) Influenza Type A (PCR) (Neg) Influenza Type B (PCR) (Neg) 02/23/19 02/23/19 02/23/19 Range/Units 11:40 11:40 11:40 WBC (4.8-10.8) K/uL RBC (4.2-5.4) M/uL Hgb (12.0-16.0) g/dL Hct (37-47) % MCV (80-100) fL MCH (25-34) pg MCHC (32-36) g/dL RDW Std Deviation (36.4-46.3) fL RDW Coeff of Yariel (11.5-14.5) % Plt Count (130-400) K/uL MPV (7.4-10.4) fL Immature Gran % (Auto) % Neut % (Auto) % Lymph % (Auto) % Lamar % (Auto) % Eos % (Auto) % Baso % (Auto) % Immature Gran # (Auto) (0.00-0.02) K/uL Neut # (Auto) (1.4-6.5) K/uL Lymph # (Auto) (1.2-3.4) K/uL Lamar # (Auto) (0.11-0.59) K/uL Eos # (Auto) (0-0.5) K/uL Baso # (Auto) (0-0.2) K/uL ESR 28 H (0-21) mm/hr PT (9.0-12.0) Seconds INR (0.9-1.1) APTT (21.0-31.0) Seconds PTT Ratio VBG pH (7.36-7.41) VBG pCO2 (38-50) mmHg VBG pO2 mmHg VBG HCO3 mmol/L VBG O2 Saturation % VBG Base Excess mEq/L Barometric Pressure mm/Hg Sodium (136-145) mmol/L Potassium (3.5-5.1) mmol/L Chloride (98-107) mmol/L Carbon Dioxide (21-32) mmol/L Anion Gap (3-11) BUN (7-18) mg/dl Creatinine (0.6-1.2) mg/dl Est Cr Clr Drug Dosing ml/min Est GFR ( Amer) Est GFR (Non-Af Amer) BUN/Creatinine Ratio (10-20) Glucose (70-99) mg/dl Calcium (8.5-10.1) mg/dl Magnesium 2.0 (1.8-2.4) mg/dl Total Bilirubin (0.2-1) mg/dl AST (15-37) U/L ALT (12-78) U/L Alkaline Phosphatase (45-117) U/L Troponin I (0-0.045) ng/ml C-Reactive Protein < 0.29 Cancelled (0-0.29) mg/dl NT-Pro-B Natriuret Pep 591 (0-900) pg/ml Total Protein (6.4-8.2) gm/dl Albumin (3.4-5.0) gm/dl Globulin (2.5-4.0) gm/dl Albumin/Globulin Ratio (0.9-2) Procalcitonin (0-0.5) ng/ml Urine Color Urine Appearance (Clear) Urine pH (4.5-7.5) Ur Specific [place] (1.000-1.030) Urine Protein (Negative) Urine Glucose (UA) (Negative) Urine Ketones (Negative) Urine Blood (Negative) Urine Nitrite (Negative) Urine Bilirubin (Negative) Urine Urobilinogen (Negative) Ur Leukocyte Esterase (Negative) Urine WBC (Auto) (0-5) /hpf Urine RBC (Auto) (0-4) /hpf U Hyaline Cast (Auto) (0-5) /lpf U Epithel Cells (Auto) (0-5) /lpf Urine Bacteria (Auto) (Negative) Influenza Type A (PCR) (Neg) Influenza Type B (PCR) (Neg) 02/23/19 02/23/19 02/23/19 Range/Units 11:40 12:10 12:30 WBC (4.8-10.8) K/uL RBC (4.2-5.4) M/uL Hgb (12.0-16.0) g/dL Hct (37-47) % MCV (80-100) fL MCH (25-34) pg MCHC (32-36) g/dL RDW Std Deviation (36.4-46.3) fL RDW Coeff of Yariel (11.5-14.5) % Plt Count (130-400) K/uL MPV (7.4-10.4) fL Immature Gran % (Auto) % Neut % (Auto) % Lymph % (Auto) % Lamar % (Auto) % Eos % (Auto) % Baso % (Auto) % Immature Gran # (Auto) (0.00-0.02) K/uL Neut # (Auto) (1.4-6.5) K/uL Lymph # (Auto) (1.2-3.4) K/uL Lamar # (Auto) (0.11-0.59) K/uL Eos # (Auto) (0-0.5) K/uL Baso # (Auto) (0-0.2) K/uL ESR (0-21) mm/hr PT (9.0-12.0) Seconds INR (0.9-1.1) APTT (21.0-31.0) Seconds PTT Ratio VBG pH (7.36-7.41) VBG pCO2 (38-50) mmHg VBG pO2 mmHg VBG HCO3 mmol/L VBG O2 Saturation % VBG Base Excess mEq/L Barometric Pressure mm/Hg Sodium (136-145) mmol/L Potassium (3.5-5.1) mmol/L Chloride (98-107) mmol/L Carbon Dioxide (21-32) mmol/L Anion Gap (3-11) BUN (7-18) mg/dl Creatinine (0.6-1.2) mg/dl Est Cr Clr Drug Dosing ml/min Est GFR ( Amer) Est GFR (Non-Af Amer) BUN/Creatinine Ratio (10-20) Glucose (70-99) mg/dl Calcium (8.5-10.1) mg/dl Magnesium (1.8-2.4) mg/dl Total Bilirubin (0.2-1) mg/dl AST (15-37) U/L ALT (12-78) U/L Alkaline Phosphatase (45-117) U/L Troponin I (0-0.045) ng/ml C-Reactive Protein (0-0.29) mg/dl NT-Pro-B Natriuret Pep (0-900) pg/ml Total Protein (6.4-8.2) gm/dl Albumin (3.4-5.0) gm/dl Globulin (2.5-4.0) gm/dl Albumin/Globulin Ratio (0.9-2) Procalcitonin 0.06 (0-0.5) ng/ml Urine Color Yellow Urine Appearance Clear (Clear) Urine pH 6.5 (4.5-7.5) Ur Specific [place] 1.010 (1.000-1.030) Urine Protein Trace H (Negative) Urine Glucose (UA) Negative (Negative) Urine Ketones Negative (Negative) Urine Blood 1+ H (Negative) Urine Nitrite Negative (Negative) Urine Bilirubin Negative (Negative) Urine Urobilinogen Negative (Negative) Ur Leukocyte Esterase Trace H (Negative) Urine WBC (Auto) 10-30 H (0-5) /hpf Urine RBC (Auto) 0-4 (0-4) /hpf U Hyaline Cast (Auto) 1-5 (0-5) /lpf U Epithel Cells (Auto) 0-5 (0-5) /lpf Urine Bacteria (Auto) Negative (Negative) Influenza Type A (PCR) Neg for Influ A (Neg) Influenza Type B (PCR) Neg for Influ B (Neg) 02/23/19 Range/Units 12:37 WBC (4.8-10.8) K/uL RBC (4.2-5.4) M/uL Hgb (12.0-16.0) g/dL Hct (37-47) % MCV (80-100) fL MCH (25-34) pg MCHC (32-36) g/dL RDW Std Deviation (36.4-46.3) fL RDW Coeff of Yariel (11.5-14.5) % Plt Count (130-400) K/uL MPV (7.4-10.4) fL Immature Gran % (Auto) % Neut % (Auto) % Lymph % (Auto) % Lamar % (Auto) % Eos % (Auto) % Baso % (Auto) % Immature Gran # (Auto) (0.00-0.02) K/uL Neut # (Auto) (1.4-6.5) K/uL Lymph # (Auto) (1.2-3.4) K/uL Lamar # (Auto) (0.11-0.59) K/uL Eos # (Auto) (0-0.5) K/uL Baso # (Auto) (0-0.2) K/uL ESR (0-21) mm/hr PT (9.0-12.0) Seconds INR (0.9-1.1) APTT (21.0-31.0) Seconds PTT Ratio VBG pH 7.40 (7.36-7.41) VBG pCO2 53 H (38-50) mmHg VBG pO2 25 mmHg VBG HCO3 32 mmol/L VBG O2 Saturation < 60.0 % VBG Base Excess 6.2 mEq/L Barometric Pressure 736.8 mm/Hg Sodium (136-145) mmol/L Potassium (3.5-5.1) mmol/L Chloride (98-107) mmol/L Carbon Dioxide (21-32) mmol/L Anion Gap (3-11) BUN (7-18) mg/dl Creatinine (0.6-1.2) mg/dl Est Cr Clr Drug Dosing ml/min Est GFR ( Amer) Est GFR (Non-Af Amer) BUN/Creatinine Ratio (10-20) Glucose (70-99) mg/dl Calcium (8.5-10.1) mg/dl Magnesium (1.8-2.4) mg/dl Total Bilirubin (0.2-1) mg/dl AST (15-37) U/L ALT (12-78) U/L Alkaline Phosphatase (45-117) U/L Troponin I (0-0.045) ng/ml C-Reactive Protein (0-0.29) mg/dl NT-Pro-B Natriuret Pep (0-900) pg/ml Total Protein (6.4-8.2) gm/dl Albumin (3.4-5.0) gm/dl Globulin (2.5-4.0) gm/dl Albumin/Globulin Ratio (0.9-2) Procalcitonin (0-0.5) ng/ml Urine Color Urine Appearance (Clear) Urine pH (4.5-7.5) Ur Specific [place] (1.000-1.030) Urine Protein (Negative) Urine Glucose (UA) (Negative) Urine Ketones (Negative) Urine Blood (Negative) Urine Nitrite (Negative) Urine Bilirubin (Negative) Urine Urobilinogen (Negative) Ur Leukocyte Esterase (Negative) Urine WBC (Auto) (0-5) /hpf Urine RBC (Auto) (0-4) /hpf U Hyaline Cast (Auto) (0-5) /lpf U Epithel Cells (Auto) (0-5) /lpf Urine Bacteria (Auto) (Negative) Influenza Type A (PCR) (Neg) Influenza Type B (PCR) (Neg) Imaging Data Radiologist's Impression: Radiology results as stated below per my review and the radiologist's interpretation: XR chest 1V portable HISTORY: Shortness of breath. COMPARISON: Chest 10/04/2018. FINDINGS: No pneumothorax. The heart remains enlarged. Progressive interstitial and vascular thickening consistent with pulmonary edema. Moderate left and small right pleural effusions have also increased in size. Left basilar densities favor compressive atelectasis from the pleural effusion. Calcified granuloma within the left midlung zone, unchanged. IMPRESSION: Interval progression of mild pulmonary edema and bilateral pleural effusions. Electronically signed by: Ricardo Villanueva M.D. 02/23/2019 12:49 PM ECG Data Attestation: I personally reviewed and interpreted this ECG as follows: Indication: SOB/dyspnea Rate (beats per minute): 85 ECG Intervals/blocks: Normal QRS and Normal QT ECG ST segments: Normal ST segments Blood Pressure Blood Pressure Findings: Elevated blood pressure Blood Pressure Disposition: further management by hospitalist TAZ Narrative 1217: Past medical records reviewed. The patient was evaluated in room C4. A complete history and physical exam was performed. The patient's EMR was reviewed and showed that the patient has COPD chronically and wears 3L of oxygen at home. The patient has a history of CKD stage 3, hypertension, hyperlipidemia, diabetes, PE on Coumadin, and GI bleed. 1334: The patient's vital signs are stable on her home oxygen. Her labs and imaging show signs of worsening pleural effusions. The patient tried to get up to go to the bathroom when she became severely shortness of breath. The patient will be further evaluated for her dyspnea on exertion and pleural effusion. No thoracentesis will be performed given her supratherapeutic INR. I discussed the case with Angela Lambert PA-C who accepts the patient for further evaluation under Dr. Hilton Hospitalist service. Impression & Plan Dyspnea on exertion, Pleural effusion Discharge Plan Visit Data *Final* Discharge Date/Time: 02/23/19 17:15 Chief Complaint: Shortness of Breath/Dyspnea ED Provider: Noel Esquivel Discharge Problem: Dyspnea on exertion, Pleural effusion Patient Disposition: Admitted As Inpatient Discharge Instructions Interventions: ED Discharge Assessment Last Done: 02/23/19 17:15 The scribe's documentation has been prepared under my direction and personally reviewed by me in its entirety. I confirm that the note above accurately reflects all work, treatment, procedures, and medical decision making performed by me.
[2019-02-23] MEDS: INSULIN ASPART 100 UNITS/ML 3 ML PEN SC SCH ×2 (18:49→20:53)
[2019-02-23] MEDS: ALBUT/IPRATROP 3MG/0.5MG NEB 3 ML VIAL NEB SCH (19:08)
[2019-02-23] MEDS: FUROSEMIDE 40 MG in SYRINGE 0 ML IV SCH (19:39)
[2019-02-23] MEDS: INSULIN DETEMIR FLEXPEN/FLEX TOUCH 100 UNITS/ML 3ML SQ SCH (20:59)
[2019-02-23] MEDS: ATORVASTATIN 40 MG TAB PO SCH (20:59)
[2019-02-23] MEDS: FLUTICASONE/SALMETEROL 250/50 (ADVAIR) 14 PUFF/1 INHALER INH SCH (20:59)
[2019-02-24 06:28] LABS: Hematocrit (blood only) 29.9 % (37-47); Hemoglobin 9.4 g/dL (12.0-16.0); Mean Corpuscular Hemoglobin 31.3 pg (25-34); Mean Corpuscular Hgb Conc 31.4 g/dL (32-36); Mean Corpuscular Volume 99.7 fL (80-100); Mean Platelet Volume 9.1 fL (7.4-10.4); Platelet Count 172 K/uL (130-400); RDW Coefficient of Variation 16.8 % (11.5-14.5); RDW Standard Deviation 60.8 fL (36.4-46.3); White Blood Count 4.52 K/uL (4.8-10.8)
[2019-02-24 06:47] LABS: Prothrombin Time 33.3 Seconds (9.0-12.0)
[2019-02-24 07:01] LABS: INR 3.6 (0.9-1.1)
[2019-02-24 07:08] LABS: BUN Creatinine Ratio 9.6 (10-20); Calcium 8.4 mg/dl (8.5-10.1); Creatinine Clr Calc Pharmacy 51.2 ml/min; Est GFR (African American) 55.6; Potassium 3.5 mmol/L (3.5-5.1)
[2019-02-24] MEDS: ALBUT/IPRATROP 3MG/0.5MG NEB 3 ML VIAL NEB SCH ×2 (07:14→19:22)
[2019-02-24] MEDS: FUROSEMIDE 40 MG in SYRINGE 0 ML IV SCH ×2 (08:11→16:24)
[2019-02-24] MEDS: FLUTICASONE/SALMETEROL 250/50 (ADVAIR) 14 PUFF/1 INHALER INH SCH ×2 (08:11→21:06)
[2019-02-24] MEDS: POTASSIUM CHLORIDE 20 MEQ TABCR PO SCH (08:12)
[2019-02-24] MEDS: METOPROLOL SUCC 25MG EXT REL TAB PO SCH (08:12)
[2019-02-24] MEDS: allopurinoL 300 MG TAB PO SCH (08:12)
[2019-02-24] MEDS: CEROVITE ADV FORMULA TAB PO SCH (08:12)
[2019-02-24] MEDS: INSULIN ASPART 100 UNITS/ML 3 ML PEN SC SCH ×4 (08:15→21:07)
[2019-02-24] MEDS: INSULIN DETEMIR FLEXPEN/FLEX TOUCH 100 UNITS/ML 3ML SQ SCH ×2 (08:15→21:06)
[2019-02-24] MEDS: cefTRIAXone SODIUM 2,000 MG in DEXTROSE 5% 50 ML IV SCH (12:28)
--- NOTE | 2019-02-24 12:52 | Pulmonary Consultation ---
Date of Consultation February 24, 2019 Assessment & Plan (1) Pleural effusion: -- Bilateral pleural effusion, more on the left side Patient was noncompliant with her diuretics at home Patient is nonrespiratory distress, talking in full sentences, diuresing well on diuretics right now, no signs of any infection --> no indication for emergent thoracentesis Would continue with diuresis, hold warfarin --> start heparin or Lovenox once INR is less than 2 --> will monitor her pleural effusion with diuretics and if it is still persistent we will do therapeutic thoracentesis. --Acute on chronic hypoxic respiratory failure with underlying COPD Continue with oxygen therapy, maintain O2 saturation between 88 to 92% Not in acute COPD exacerbation, continue with inhaled therapy --Probable MARCO Mallampati 4, snoring at night BiPAP nightly Follow-up ABG to look at PCO2 Needs outpatient polysomnography --History of PE in May 2018 On Coumadin with supratherapeutic INR --Secondary hypercoagulable state On Coumadin (2) Acute and chronic respiratory failure with hypoxia: (3) Supratherapeutic INR: (4) Pulmonary embolism: Pulmonary embolism type: saddle Chronicity: unspecified Acute cor pulmonale presence: without acute cor pulmonale Qualified Code(s): I26.92 - Saddle embolus of pulmonary artery without acute cor pulmonale (5) Moderate COPD (chronic obstructive pulmonary disease): (6) MARCO (obstructive sleep apnea): History of Present Illness Reason for Consultation: Left-sided pleural effusion Attending Physician: Angy Fontaine DO History of Present Illness 73-year-old female past medical history of 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 Patient ejection fraction is greater than 65% as per echo done in June 2018. Patient has chronic lower extremity edema for which she was on diuretic but she was not taking it since last 4 weeks as she did not want to get up to urinate at night. At the time of examination today patient is not in respiratory distress, talking in full sentences and states she feels little bit better. Shortness of breath is only present on exertion. No chest pain, no dizziness, no palpitation, no headache, no nausea, no vomiting. Denies any cough. No hemoptysis, no hematuria, no hematochezia. No epistaxis. No dysuria, no diarrhea. At the time of examination patient was saturating 97% on 3 L nasal cannula at rest. No recent travel history. No fever or chills. No recent upper respiratory infection. Social history: Greater than [id number] smoking history, quit not too long ago, no alcohol, denies any illicit drug use. Allergies: No known drug allergies Allergies Allergy/AdvReac Type Severity Reaction Status Date / Time No Known Allergies Allergy Verified 02/23/19 13:22 Home Medications Home Medications Medication Instructions Recorded Confirmed Type fluticasone propion-salmeterol 1 inh INHALATION BID 04/05/18 02/23/19 History [Advair Diskus] tramadol 50 mg PO Q6H PRN 04/05/18 02/23/19 History Levemir FlexTouch U-100 Insuln 10 units SUBCUT QPM 06/09/18 02/23/19 History allopurinol 300 mg PO DAILY 06/09/18 02/23/19 History Sprycel 70 mg PO BID 06/12/18 02/23/19 History Women's Multivitamin 1 tab PO QAM 06/12/18 02/23/19 History albuterol sulfate 2 puff INHALATION Q6H PRN 06/12/18 02/23/19 History acetaminophen [Mapap 650 mg PO Q4H PRN #100 tab 07/03/18 02/23/19 Rx (acetaminophen)] warfarin [Coumadin] 5 mg PO QAM 08/29/18 02/23/19 History atorvastatin 40 mg PO PM 02/23/19 02/23/19 History bumetanide 1 mg PO DAILY 02/23/19 02/23/19 History insulin detemir U-100 [Levemir 14 unit SUBCUT QAM 02/23/19 02/23/19 History FlexTouch U-100 Insuln] ipratropium-albuterol 3 ml INHALATION BID 02/23/19 02/23/19 History ipratropium-albuterol 3 ml INHALATION QID PRN 02/23/19 02/23/19 History lorazepam 0.5 mg SUBLINGUAL BID PRN 02/23/19 02/23/19 History metoprolol succinate 25 mg PO DAILY 02/23/19 02/23/19 History potassium chloride 20 meq PO DAILY 02/23/19 02/23/19 History Patient History Medical History COPD (chronic obstructive pulmonary disease) (Chronic) Chronic respiratory failure (Chronic) Diabetes mellitus (Chronic) MRSA (methicillin resistant Staphylococcus aureus) septicemia (Resolved) Mucoid impaction of bronchi (Resolved) Pulmonary embolism (Chronic) Acute hypoxemic respiratory failure (Resolved) Secondary hyperparathyroidism (Chronic) Bacteremia (Resolved) Leg edema (Chronic) Lumbar disc disease (Chronic) Tobacco use (Resolved) Depression (Chronic) Splenomegaly (Chronic) ALL (acute lymphoblastic leukemia) (Chronic) Osteoarthritis (Chronic) GERD (gastroesophageal reflux disease) (Chronic) Nocturnal hypoxia (Chronic) Moderate COPD (chronic obstructive pulmonary disease) (Chronic) CKD (chronic kidney disease), stage III (Chronic) Dyslipidemia (Chronic) Hypertension (Chronic) DM type 2 (diabetes mellitus, type 2) (Chronic) Diabetes mellitus, type II (Inactive) EKG abnormalities (Inactive) GERD (gastroesophageal reflux disease) (Inactive) Ovarian cyst (Inactive) Surgical History H/O tubal ligation (Chronic) History of cholecystectomy (Chronic) Social History Preferred Language: Angolan Communication Ability: Effective Visual Impairment: No Limitations Hearing Ability: Normal Probate Clerk Required: No Beliefs That Will Affect Care: None Current Living Situation: Alone Current Living Situation Comment: House Other Information That Helps Us Care for You: No Feels Safe at Home: Yes Safety Concerns: Feels Safe At This Time Smoking Status: Former smoker Hx Alcohol Use: No Hx Substance Use: No Review of Systems Review of Systems: All systems reviewed & are unremarkable except as noted in HPI & below Physical Exam Physical Exam: Constitutional: No acute distress HEENT: EOMI, PERRLA, Mallampati 4 Respiratory system: Decreased air entry bilaterally, more decreased on the left side, positive crackles bilateral lower lobes, no wheeze, no rhonchi CVS: S1-S2 positive, no murmurs or gallops Abdomen: Soft, nontender, nondistended, positive bowel sounds x4 Extremities: +2 pulses bilaterally radialis/ dorsalis pedis, +1 pitting edema bilateral lower extremity, no cyanosis Neuro: Awake alert oriented x3 Psych: Normal mood and affect Skin: no rashes, warm and dry Lymphatic: no cervical or axillary lymphadenopathy Results & Data Vital Signs (Past 12 Hours) Vital Signs Temp Pulse Pulse Resp BP Pulse Ox 02/24/19 11:30 36.6 C 75 18 165/64 H 94 02/24/19 07:16 88 18 93 02/24/19 07:11 74 02/24/19 07:00 36.6 C 77 19 168/68 H 96 02/24/19 03:40 36.5 C 87 18 170/77 H 92 02/24/19 06:04 02/24/19 06:04 PG Care Time/CCT Total # of Minutes Spent Total Time Spent with Patient: Total time spent is greater than 50% in coordination of care (as documented) at patient's floor/unit and/or counseling patient:
--- NOTE | 2019-02-24 13:38 | Hospitalist Progress Note ---
Date of Service February 24, 2019 Assessment & Plan (1) Pleural effusion: Reported noncompliant with Bumex, improved with Lasix. Oxygenating at baseline. Cont with diuresis and monitor daily clinical improvement and BMP. Pulm following and will consider thoracentesis when INR trends down if needed. Strict I/Os. (2) Chronic respiratory failure: 2/2 COPD. Reports being on 3L oxygen continuously. Currently on 2L at rest and took a walk around the hallways today without much difficult. (3) COPD (chronic obstructive pulmonary disease): Cont Duonebs and Advair. (4) Pulmonary embolism: h/o provoked PE after prolonged hospitalization in the setting of multiple infections and active cancer earlier this year. Cont coumadin and discuss the need to continue this with Dr. Nix or PCP after discharge. (5) Supratherapeutic INR: Hold coumadin and trend INR daily. (6) ALL (acute lymphoblastic leukemia): Diagnosed in 04/2018, Follows with Dr Nix, Continue dasatinib (7) Hypertension: Uncontrolled and found to have been on lisinopril 10mg PO BID earlier in the year. However, review of the records doesn't reveal any reason for this being stopped. With multiple admissions to the hospital, this may have simply been dropped from her list. Will restart lisinopril 10mg daily now. (8) Anemia: Chronic anemia 2/2 chronic disease Hgb: 9.8. Baseline 8.7-10) -Monitor H&H (9) Diabetes mellitus: A1c: 5.4 on 01/07/19, glucose is at goal, Continue home Levemir and correction factor as needed. No carb coverage. (10) CKD (chronic kidney disease), stage III: Cr: 1.09. Baseline: 1.0-1.3 -Monitor renal functions -Avoid nephrotoxic agents when possible -expect a small rise in creatinine with addition of ACEI. Will monitor (11) DVT prophylaxis: Coumadin with therapeutic INR Full code Dispo-pending clinical improvement. Expect to home when medically stable. Angy Fontaine DO [facility] Hospitalist Subjective 73 yo F presented with worsening shortness of breath x 2 weeks after reported noncompliance with her diuretic as she didn't want to urinate overnight. She has been on Lasix and is net negative. She is reporting less shortness of breath today. She denies chest pain, fevers, chills, UTI symptoms. Blood and urine cultures are positive and empiric antibiotics were started. She has a h/o ALL and is on Sprycel; she is working to get a family member to bring it to the hospital for her to start taking. She otherwise reports some acute point tenderness in her right lateral chest wall along the rib line in the mid-axillary region. She denies any trauma and denies osteoporosis although reports not having been screened for this previously. She also reports soreness in her neck and upper back muscles and along her shoulders. She demonstrates good active ROM in both shoulders today. She is tolerating PO and otherwise doing well. Review of Systems Review of Systems: All systems reviewed & are unremarkable except as noted in HPI & below Physical Exam Physical Exam: CONSTITUTIONAL: obese, vitals as above, generally well- appearing EYES: normal conjunctivae, no scleral icterus ENT: MMM RESPIRATORY: normal respiratory effort, oxygenating 97% on 2L via NC. Crackles heard throughout the right lung, and left base. Air moving better through left upper lung. No wheezing or rales audible. CARDIOVASCULAR: regular rate and rhythm, S1 and 2 heard without murmurs, gallops or rubs, no JVD, no peripheral edema CHEST: inspection of chest was normal. No changes in skin color or evidence of rashes. Point TTP along the rib line without evidence of displacement of the ribs. GASTROINTESTINAL: normal bowel sounds, soft, nontender, no hepatomegaly, no guarding MUSCULOSKELETAL: strength 5/5 throughout, head is normocephalic and atraumatic, Trap muscles are sore to palpation. Good full active ROM of shoulders demonstrated. SKIN: warm and dry, no rashes NEUROLOGIC: CN 2-12 grossly intact, normal cognition, no gross focal deficits. PSYCHIATRIC: alert cooperative and oriented to person, place and time. Results & Data Vital Signs (Past 12 Hours) Vital Signs Temp Pulse Pulse Resp BP Pulse Ox 02/24/19 11:30 36.6 C 75 18 165/64 H 94 02/24/19 07:16 88 18 93 02/24/19 07:11 74 02/24/19 07:00 36.6 C 77 19 168/68 H 96 02/24/19 03:40 36.5 C 87 18 170/77 H 92 Laboratory Results Short CBC 02/24/19 Range/Units 06:04 WBC 4.52 L (4.8-10.8) K/uL Hgb 9.4 L (12.0-16.0) g/dL Hct 29.9 L (37-47) % Plt Count 172 (130-400) K/uL BMP 02/24/19 06:04 Sodium 142 Potassium 3.5 Chloride 104 Carbon Dioxide 34 H BUN 11 Creatinine 1.14 Glucose 85 Calcium 8.4 L Medications Administered Current Inpatient Medications Acetaminophen (Tylenol) 650 mg PO Q4H PRN PRN Reason: Pain or Fever Stop: 03/25/19 17:38 Albuterol (Duoneb) 3 ml NEB BIDR MOIRA Stop: 03/25/19 18:59 Last Admin: 02/24/19 07:14 Dose: 3 ml Documented by: Albuterol (Duoneb) 3 ml NEB Q4R PRN PRN Reason: Shortness Of Breath Or Wheezing Stop: 03/25/19 17:38 Allopurinol (Zyloprim) 300 mg PO DAILY MOIRA Stop: 03/26/19 08:59 Last Admin: 02/24/19 08:12 Dose: 300 mg Documented by: Atorvastatin Calcium (Lipitor) 40 mg PO PM MOIRA Stop: 03/25/19 20:59 Last Admin: 02/23/19 20:59 Dose: 40 mg Documented by: Dextrose (Dextrose 50%) 25 - 50 ml IV UD PRN; Protocol PRN Reason: Hypoglycemia Protocol Stop: 03/25/19 17:38 Glucagon (Glucagen) 1 mg SQ UD PRN; Protocol PRN Reason: Hypoglycemia Protocol Stop: 03/25/19 17:38 Glucose (Glucose 40%) 15 - 30 gm PO UD PRN; Protocol PRN Reason: Hypoglycemia Protocol Stop: 03/25/19 17:38 Glucose (Dex4 Glucose) 4 - 8 tabs PO UD PRN; Protocol PRN Reason: Hypoglycemia Protocol Stop: 03/25/19 17:38 Furosemide 40 mg/ Syringe 4 mls @ 4 mls/min IV BID17 MOIRA Stop: 03/25/19 17:38 Last Admin: 02/24/19 08:11 Dose: 4 mls/min Documented by: Ceftriaxone Sodium 2,000 mg/ (Dextrose) 70 mls @ 100 mls/hr IV Q24H MOIRA; Protocol Stop: 03/01/19 11:59 Last Infusion: 11/02/19 13:04 Dose: Infused Documented by: Insulin Aspart (Novolog Flexpen) 0 units SC ACHS MOIRA Stop: 03/25/19 17:38 Last Admin: 02/24/19 12:29 Dose: Not Given Documented by: Insulin Detemir (Levemir Flextouch) 10 units SQ QPM MOIRA Stop: 03/25/19 20:59 Last Admin: 02/23/19 20:59 Dose: 10 units Documented by: Insulin Detemir (Levemir Flextouch) 14 units SQ QAM MOIRA Stop: 03/26/19 08:59 Last Admin: 02/24/19 08:15 Dose: 14 units Documented by: Lorazepam (Ativan) 0.5 mg SL BID PRN PRN Reason: Anxiety Stop: 03/25/19 17:38 Metoprolol Succinate (Toprol Xl) 25 mg PO DAILY MOIRA Stop: 03/26/19 08:59 Last Admin: 02/24/19 08:12 Dose: 25 mg Documented by: Miscellaneous (Carbohydrates For Hypoglycemia) 15 - 30 gm PO UD PRN PRN Reason: Hypoglycemia Protocol Stop: 03/25/19 17:38 Miscellaneous (Order Awaiting Action) 1 ea N/A QS MOIRA Stop: 03/26/19 00:00 Last Admin: 02/24/19 08:12 Dose: Not Given Documented by: Multivitamins/Minerals (Multivitamin W/ Minerals Tab) 1 tab PO QAM MOIRA Stop: 03/26/19 08:59 Last Admin: 02/24/19 08:12 Dose: 1 tab Documented by: Potassium Chloride (Klor-Con M20) 20 meq PO DAILY MOIRA Stop: 03/26/19 08:59 Last Admin: 02/24/19 08:12 Dose: 20 meq Documented by: Fluticasone/Salmeterol (Advair Diskus 250/50) 1 puffs INH BID MOIRA Stop: 03/25/19 20:59 Last Admin: 02/24/19 08:11 Dose: 1 puffs Documented by: Tramadol HCl (Ultram) 50 mg PO Q6H PRN PRN Reason: Pain Stop: 03/25/19 17:38 (1) Anemia Anemia type: unspecified type Qualified Code(s): D64.9 - Anemia, unspecified (2) Pulmonary embolism Acute cor pulmonale presence: without acute cor pulmonale Chronicity: unspecified Pulmonary embolism type: saddle Qualified Code(s): I26.92 - Saddle embolus of pulmonary artery without acute cor pulmonale
[2019-02-24] MEDS ORDERED: CONSULT PHARMACY STA (13:41)
[2019-02-24] MEDS ORDERED: DAPTOMYCIN CONSULT ACTIVE PRN (14:07)
[2019-02-24] MEDS: DAPTOmycin 550 MG in SYRINGE 0 ML IV SCH (15:22)
[2019-02-24] MEDS: ACETAMINOPHEN 500 MG TAB PO SCH ×3 (16:28→21:09)
[2019-02-24] MEDS: TROLAMINE SALICYLATE 10% CRM 255 APPLN/85 GM TUBE EXT PRN (17:36)
[2019-02-24] MEDS: lisinopriL 10 MG TAB PO SCH (17:57)
[2019-02-25 06:45] LABS: Hemoglobin 10.4 g/dL (12.0-16.0); Mean Corpuscular Hemoglobin 31.2 pg (25-34); Mean Corpuscular Hgb Conc 31.5 g/dL (32-36); Mean Corpuscular Volume 99.1 fL (80-100); Platelet Count 197 K/uL (130-400); RDW Coefficient of Variation 16.4 % (11.5-14.5); RDW Standard Deviation 59.5 fL (36.4-46.3); Red Blood Count 3.33 M/uL (4.2-5.4); White Blood Count 4.91 K/uL (4.8-10.8)
[2019-02-25] MEDS: ALBUT/IPRATROP 3MG/0.5MG NEB 3 ML VIAL NEB SCH ×2 (07:04→19:17)
[2019-02-25 07:16] LABS: INR 2.4 (0.9-1.1); Prothrombin Time 23.4 Seconds (9.0-12.0)
[2019-02-25 07:25] LABS: BUN Creatinine Ratio 14.8 (10-20); Calcium 9.1 mg/dl (8.5-10.1); Creatinine Clr Calc Pharmacy 51.7 ml/min; Est GFR (African American) 57.5; Est GFR (Non-African American) 49.6; Potassium 3.5 mmol/L (3.5-5.1)
--- NOTE | 2019-02-25 07:32 | XRay Report ---
SINGLE VIEW CHEST CLINICAL HISTORY: Follow-up congestive failure. FINDINGS: An AP, portable, upright chest radiograph is compared to study dated 02/23/2019 and correlat ed with chest CT dated 06/24/2018. The cardiomediastinal silhouette is unremarkable The examination is degraded by portable technique and patient rotation. The heart is enlarged noting atherosclerotic jagjit cification of the thoracic aorta. There is mild pulmonary vascular congestion. There are moderate lef t and trace right pleural effusions with associated bibasilar consolidation. A calcified granuloma is again noted on the left. No pneumothorax is seen. The skeletal structures are osteopenic. The bony t horax is grossly intact. IMPRESSION: 1. Cardiomegaly with evidence of congestive failure. 2. Left larger than right pleural effusions with associated bibasilar consolidation. 3. These findings are unchanged from 02/23/2019. Electronically signed by: Aamir Herring M.D. 02/25/2019 7:30 AM
--- NOTE | 2019-02-25 07:33 | Infectious Disease Consult ---
Date of Consultation February 25, 2019 Assessment & Plan (1) Gram positive sepsis: suspect contaminant. await ID gpc, suggest repeat blood cultures. suspect K. pneumo in urine is colonization, UA with no bacteria, no symptoms, procalcitonin negative, wbc normal. she is on day 2 roecephin. Await ID gpc in blood cultures, if skin valentin, will follow off of abx. History of Present Illness Attending Physician: Angy Fontaine, DO pt admited with sob x 2 weeks, feeling better today. receiving neb treatment on my exam. was on diruretic as an outpatient but had stopped taking. wbc in ER 4.5, ESR 28, procalcitonin 0.06. UA 10-30 wbc, no bacteria. CXR negative for infiltrate, flu swab negative. 02/23 blood culture growing gpc in 1 bottle, Urine culture growing marin sensitive k. pneumo. She is on dapto and rocephin pending additional micro. She denies any cp, sob, cough on my exam, breathing is improved. no abd pain, no n/v/d, eating well. denies any gu symptoms. has been afebrile since admission. Allergies Allergy/AdvReac Type Severity Reaction Status Date / Time No Known Allergies Allergy Verified 02/23/19 13:22 Home Medications Home Medications Medication Instructions Recorded Confirmed Type fluticasone propion-salmeterol 1 inh INHALATION BID 04/05/18 02/23/19 History [Advair Diskus] tramadol 50 mg PO Q6H PRN 04/05/18 02/23/19 History Levemir FlexTouch U-100 Insuln 10 units SUBCUT QPM 06/09/18 02/23/19 History allopurinol 300 mg PO DAILY 06/09/18 02/23/19 History Sprycel 70 mg PO BID 06/12/18 02/23/19 History Women's Multivitamin 1 tab PO QAM 06/12/18 02/23/19 History albuterol sulfate 2 puff INHALATION Q6H PRN 06/12/18 02/23/19 History acetaminophen [Mapap 650 mg PO Q4H PRN #100 tab 07/03/18 02/23/19 Rx (acetaminophen)] warfarin [Coumadin] 5 mg PO QAM 08/29/18 02/23/19 History atorvastatin 40 mg PO PM 02/23/19 02/23/19 History bumetanide 1 mg PO DAILY 02/23/19 02/23/19 History insulin detemir U-100 [Levemir 14 unit SUBCUT QAM 02/23/19 02/23/19 History FlexTouch U-100 Insuln] ipratropium-albuterol 3 ml INHALATION BID 02/23/19 02/23/19 History ipratropium-albuterol 3 ml INHALATION QID PRN 02/23/19 02/23/19 History lorazepam 0.5 mg SUBLINGUAL BID PRN 02/23/19 02/23/19 History metoprolol succinate 25 mg PO DAILY 02/23/19 02/23/19 History potassium chloride 20 meq PO DAILY 02/23/19 02/23/19 History Patient History Medical History COPD (chronic obstructive pulmonary disease) (Chronic) Chronic respiratory failure (Chronic) Diabetes mellitus (Chronic) MRSA (methicillin resistant Staphylococcus aureus) septicemia (Resolved) Mucoid impaction of bronchi (Resolved) Pulmonary embolism (Chronic) Acute hypoxemic respiratory failure (Resolved) Secondary hyperparathyroidism (Chronic) Bacteremia (Resolved) Leg edema (Chronic) Lumbar disc disease (Chronic) Tobacco use (Resolved) Depression (Chronic) Splenomegaly (Chronic) ALL (acute lymphoblastic leukemia) (Chronic) Osteoarthritis (Chronic) GERD (gastroesophageal reflux disease) (Chronic) Nocturnal hypoxia (Chronic) Moderate COPD (chronic obstructive pulmonary disease) (Chronic) CKD (chronic kidney disease), stage III (Chronic) Dyslipidemia (Chronic) Hypertension (Chronic) DM type 2 (diabetes mellitus, type 2) (Chronic) Diabetes mellitus, type II (Inactive) EKG abnormalities (Inactive) GERD (gastroesophageal reflux disease) (Inactive) Ovarian cyst (Inactive) Surgical History H/O tubal ligation (Chronic) History of cholecystectomy (Chronic) Social History Preferred Language: Uzbek Communication Ability: Effective Visual Impairment: No Limitations Hearing Ability: Normal Nipple Maker Required: No Beliefs That Will Affect Care: None Current Living Situation: Alone Current Living Situation Comment: House Other Information That Helps Us Care for You: No Feels Safe at Home: Yes Safety Concerns: Feels Safe At This Time Smoking Status: Former smoker Hx Alcohol Use: No Hx Substance Use: No Review of Systems Review of Systems: All systems reviewed & are unremarkable except as noted in HPI & below Physical Exam Constitutional: WD/WN, vitals as above Eyes: PERRL, conjunctivae normal, anicteric sclerae ENMT: external ear and nose normal, oropharynx normal Neck: normal visual inspection Respiratory: normal respiratory effort, lungs clear to auscultation Auscultation: + diminished lung sounds Cardiovascular: RRR, no murmur, no edema Gastrointestinal (Abdomen): normal bowel sounds, soft, nontender, no hepatosplenomegaly Musculoskeletal: no cyanosis or clubbing, extremities motor strength 5/5 Skin: no rashes, warm and dry Psychiatric: A+Ox3, euthymic affect Results & Data Vital Signs (Past 12 Hours) Vital Signs Temp Pulse Pulse Resp BP Pulse Ox 02/25/19 07:05 73 18 92 02/25/19 07:00 36.8 C 73 16 127/54 L 92 02/25/19 03:50 36.6 C 73 18 160/72 H 99 02/25/19 00:00 73 02/24/19 23:00 36.8 C 18 167/68 H 97 Laboratory Results Microbiology 02/23/19 12:10 Urine,Clean Catch Urine Culture - Preliminary Klebsiella pneumoniae 02/23/19 15:51 Blood Aerobic Blood Culture - Preliminary No growth in Aerobic bottle after 24 hours. 02/23/19 15:51 Blood Anaerobic Blood Culture - Preliminary No growth in Anaerobic bottle after 24 hours. 02/23/19 15:42 Blood Aerobic Blood Culture - Preliminary No growth in Aerobic bottle after 24 hours. 02/23/19 15:42 Blood Anaerobic Blood Culture - Preliminary Gram positive cocci PG Care Time/CCT Total # of Minutes Spent Total Time Spent with Patient: Total time spent is greater than 50% in coordination of care (as documented) at patient's floor/unit and/or counseling patient:
[2019-02-25] MEDS: FUROSEMIDE 40 MG in SYRINGE 0 ML IV SCH ×2 (08:21→16:31)
[2019-02-25] MEDS: allopurinoL 300 MG TAB PO SCH (08:22)
[2019-02-25] MEDS: lisinopriL 10 MG TAB PO SCH (08:22)
[2019-02-25] MEDS: METOPROLOL SUCC 25MG EXT REL TAB PO SCH (08:22)
[2019-02-25] MEDS: POTASSIUM CHLORIDE 20 MEQ TABCR PO SCH (08:22)
[2019-02-25] MEDS: CEROVITE ADV FORMULA TAB PO SCH (08:23)
[2019-02-25] MEDS: FLUTICASONE/SALMETEROL 250/50 (ADVAIR) 14 PUFF/1 INHALER INH SCH ×2 (08:23→20:15)
[2019-02-25] MEDS: ACETAMINOPHEN 500 MG TAB PO SCH ×3 (08:23→23:44)
[2019-02-25] MEDS: INSULIN ASPART 100 UNITS/ML 3 ML PEN SC SCH ×4 (08:24→20:22)
[2019-02-25] MEDS: INSULIN DETEMIR FLEXPEN/FLEX TOUCH 100 UNITS/ML 3ML SQ SCH ×2 (08:24→20:22)
[2019-02-25] MEDS: cefTRIAXone SODIUM 2,000 MG in DEXTROSE 5% 50 ML IV SCH (11:58)
--- NOTE | 2019-02-25 12:07 | Pulmonology Progress Note ---
Date of Service February 25, 2019 Assessment & Plan (1) Pleural effusion: -- Bilateral pleural effusion, more on the left side Patient was noncompliant with her diuretics at home Patient is nonrespiratory distress, talking in full sentences, diuresing well on diuretics right now, no signs of any infection --> no indication for emergent thoracentesis Would continue with diuresis, hold warfarin --> start heparin or Lovenox once INR is less than 2 --> will monitor her pleural effusion with diuretics and if it is still persistent we will do therapeutic thoracentesis. Chest x-ray from today still shows moderate left-sided pleural effusion. Patient's INR today is 2.4. Hold anticoagulation. INR is less than 1.7 tomorrow and on bedside ultrasound of there is significant left-sided pleural effusion will likely do thoracentesis. --Acute on chronic hypoxic respiratory failure with underlying COPD Continue with oxygen therapy, maintain O2 saturation between 88 to 92% Not in acute COPD exacerbation, continue with inhaled therapy --Probable MARCO Mallampati 4, snoring at night BiPAP nightly VB.4// Needs outpatient polysomnography --History of PE in May 2018 On Coumadin with supratherapeutic INR --Secondary hypercoagulable state On Coumadin (2) Acute and chronic respiratory failure with hypoxia: (3) Supratherapeutic INR: (4) Pulmonary embolism: Pulmonary embolism type: saddle Chronicity: unspecified Acute cor pulmonale presence: without acute cor pulmonale Qualified Code(s): I26.92 - Saddle embolus of pulmonary artery without acute cor pulmonale (5) Moderate COPD (chronic obstructive pulmonary disease): (6) MARCO (obstructive sleep apnea): Subjective Patient seen and examined at bedside. No acute distress, no adverse events overnight. Patient states shortness of breath has improved a little bit but still persist on exertion. Denies any chest pain, no headache, no nausea, no vomiting. No hematuria, no hematochezia. No epistaxis. Patient saturating 98% on 2 L nasal cannula with heart rate of 84 at rest. Review of Systems Review of Systems: All systems reviewed & are unremarkable except as noted in HPI & below Physical Exam Physical Exam: Constitutional: No acute distress HEENT: EOMI, PERRLA, Mallampati 4 Respiratory system: Decreased air entry bilaterally, more decreased on the left side, positive crackles bilateral lower lobes, no wheeze, no rhonchi CVS: S1-S2 positive, no murmurs or gallops Abdomen: Soft, nontender, nondistended, positive bowel sounds x4 Extremities: +2 pulses bilaterally radialis/ dorsalis pedis, +1 pitting edema bilateral lower extremity, no cyanosis Neuro: Awake alert oriented x3 Psych: Normal mood and affect Skin: no rashes, warm and dry Lymphatic: no cervical or axillary lymphadenopathy Results & Data Vital Signs (Past 12 Hours) Vital Signs Temp Pulse Pulse Resp BP Pulse Ox 02/25/19 11:00 37.0 C 77 16 146/65 H 94 02/25/19 07:40 79 02/25/19 07:05 73 18 92 02/25/19 07:00 36.8 C 73 16 127/54 L 92 02/25/19 03:50 36.6 C 73 18 160/72 H 99 02/25/19 06:31 02/25/19 06:31 PG Care Time/CCT Total # of Minutes Spent Total Time Spent with Patient: Total time spent is greater than 50% in coordination of care (as documented) at patient's floor/unit and/or counseling patient:
[2019-02-25] MEDS: DAPTOmycin 550 MG in SYRINGE 0 ML IV SCH (13:45)
--- NOTE | 2019-02-25 17:21 | Hospitalist Progress Note ---
Date of Service February 25, 2019 Assessment & Plan (1) Pleural effusion: Reported noncompliant with Bumex, improved with Lasix. Oxygenating at baseline. Cont with diuresis and monitor daily clinical improvement and BMP. Pulm following and will consider thoracentesis when INR trends down if needed. Strict I/Os. (2) Chronic respiratory failure: 2/2 COPD. Doing well on baseline supplemental oxygen (3) COPD (chronic obstructive pulmonary disease): Cont Duonebs and Advair. (4) Pulmonary embolism: h/o provoked PE after prolonged hospitalization in the setting of multiple infections and active cancer earlier this year. Cont coumadin and discuss the need to continue this with Dr. Nix or PCP after discharge. (5) Supratherapeutic INR: Hold coumadin and trend INR daily. (6) ALL (acute lymphoblastic leukemia): Diagnosed in 04/2018, Follows with Dr Nix, Continue dasatinib (7) Hypertension: Uncontrolled and found to have been on lisinopril 10mg PO BID earlier in the year. However, review of the records doesn't reveal any reason for this being stopped. With multiple admissions to the hospital, this may have simply been dropped from her list. Restarted lisinopril yesterday with good BP control as a result. (8) Anemia: Chronic anemia 2/2 chronic disease Hgb: 9.8. Baseline 8.7-10) -Monitor H&H (9) Diabetes mellitus: A1c: 5.4 on 01/07/19, glucose is at goal, Continue home Levemir and correction factor as needed. No carb coverage. (10) CKD (chronic kidney disease), stage III: Cr: 1.09. Baseline: 1.0-1.3 -Monitor renal functions -Avoid nephrotoxic agents when possible -expect a small rise in creatinine with addition of ACEI. Will monitor (11) DVT prophylaxis: Coumadin held -INR therapeutic Full code Dispo-pending clinical improvement. Expect to home when medically stable. Angy Fontaine DO [facility] Hospitalist Subjective feeling well, no acute issues point rib tenderness and neck soreness has resolved with therapies offered yesterday Review of Systems Review of Systems: All systems reviewed & are unremarkable except as noted in HPI & below Physical Exam Physical Exam: CONSTITUTIONAL: obese, vitals as above, generally well- appearing EYES: normal conjunctivae, no scleral icterus ENT: MMM RESPIRATORY: normal respiratory effort, oxygenating 97% on 2L via NC. Crackles heard at the left base. Good airflow on the right. No wheezing or rales audible. CARDIOVASCULAR: regular rate and rhythm, S1 and 2 heard without murmurs, gallops or rubs, no JVD, no peripheral edema CHEST: inspection of chest was normal. No changes in skin color or evidence of rashes. Point TTP along the rib line has resolved today GASTROINTESTINAL: normal bowel sounds, soft, nontender, no hepatomegaly, no guarding MUSCULOSKELETAL: strength 5/5 throughout, head is normocephalic and atraumatic, neck soreness has improved/resolved. SKIN: warm and dry, no rashes NEUROLOGIC: CN 2-12 grossly intact, normal cognition, no gross focal deficits. PSYCHIATRIC: alert cooperative and oriented to person, place and time. Results & Data Vital Signs (Past 12 Hours) Vital Signs Temp Pulse Pulse Resp BP Pulse Ox 02/25/19 15:16 86 02/25/19 15:00 36.9 C 82 18 137/65 93 02/25/19 11:00 37.0 C 77 16 146/65 H 94 02/25/19 07:40 79 02/25/19 07:05 73 18 92 02/25/19 07:00 36.8 C 73 16 127/54 L 92 Laboratory Results Short CBC 02/25/19 Range/Units 06:31 WBC 4.91 (4.8-10.8) K/uL Hgb 10.4 L (12.0-16.0) g/dL Hct 33.0 L (37-47) % Plt Count 197 (130-400) K/uL BMP 02/25/19 06:31 Sodium 141 Potassium 3.5 Chloride 103 Carbon Dioxide 34 H BUN 16 Creatinine 1.11 Glucose 99 Calcium 9.1 Medications Administered Current Inpatient Medications Acetaminophen (Tylenol) 1,000 mg PO Q8H [facility] Stop: 03/26/19 15:59 Last Admin: 02/25/19 16:30 Dose: 1,000 mg Documented by: Albuterol (Duoneb) 3 ml NEB BIDR [facility]A Stop: 03/25/19 18:59 Last Admin: 02/25/19 07:04 Dose: 3 ml Documented by: Allopurinol (Zyloprim) 300 mg PO DAILY [facility] Stop: 03/26/19 08:59 Last Admin: 02/25/19 08:22 Dose: 300 mg Documented by: Atorvastatin Calcium (Lipitor) 40 mg PO PM MO[facility]A Stop: 03/25/19 20:59 Last Admin: 02/23/19 20:59 Dose: 40 mg Documented by: Dasatinib (Sprycel) 1 ea PO BID MO[facility] Stop: 03/27/19 20:59 Dextrose (Dextrose 50%) 25 - 50 ml IV UD PRN; Protocol PRN Reason: Hypoglycemia Protocol Stop: 03/25/19 17:38 Glucagon (Glucagen) 1 mg SQ UD PRN; Protocol PRN Reason: Hypoglycemia Protocol Stop: 03/25/19 17:38 Glucose (Glucose 40%) 15 - 30 gm PO UD PRN; Protocol PRN Reason: Hypoglycemia Protocol Stop: 03/25/19 17:38 Glucose (Dex4 Glucose) 4 - 8 tabs PO UD PRN; Protocol PRN Reason: Hypoglycemia Protocol Stop: 03/25/19 17:38 Furosemide 40 mg/ Syringe 4 mls @ 4 mls/min IV BID17 [facility] Stop: 03/25/19 17:38 Last Admin: 02/25/19 16:31 Dose: 4 mls/min Documented by: Ceftriaxone Sodium 2,000 mg/ (Dextrose) 70 mls @ 100 mls/hr IV Q24H MOIRA; Protocol Stop: 03/01/19 11:59 Last Infusion: 02/25/19 13:28 Dose: Infused Documented by: Daptomycin 550 mg/ Syringe 11 mls @ 5.5 mls/min IV Q24H MO[facility]A; Protocol Stop: 03/10/19 14:29 Last Admin: 02/25/19 13:45 Dose: 5.5 mls/min Documented by: Insulin Aspart (Novolog Flexpen) 0 units SC ACHS MO[facility]A Stop: 03/25/19 17:38 Last Admin: 02/25/19 16:30 Dose: Not Given Documented by: Insulin Detemir (Levemir Flextouch) 10 units SQ QPM [facility] Stop: 03/25/19 20:59 Last Admin: 02/24/19 21:06 Dose: 10 units Documented by: Insulin Detemir (Levemir Flextouch) 14 units SQ QAM [facility] Stop: 03/26/19 08:59 Last Admin: 02/25/19 08:24 Dose: 14 units Documented by: Lisinopril (Zestril) 10 mg PO QAM MO[facility]A Stop: 03/26/19 16:59 Last Admin: 02/25/19 08:22 Dose: 10 mg Documented by: Lorazepam (Ativan) 0.5 mg SL BID PRN PRN Reason: Anxiety Stop: 03/25/19 17:38 Metoprolol Succinate (Toprol Xl) 25 mg PO DAILY MO[facility]A Stop: 03/26/19 08:59 Last Admin: 02/25/19 08:22 Dose: 25 mg Documented by: Miscellaneous (Carbohydrates For Hypoglycemia) 15 - 30 gm PO UD PRN PRN Reason: Hypoglycemia Protocol Stop: 03/25/19 17:38 Miscellaneous Information (Consult) 1 ea N/A UD PRN PRN Reason: Consult Stop: 03/26/19 14:06 Multivitamins/Minerals (Multivitamin W/ Minerals Tab) 1 tab PO QAM MO[facility]A Stop: 03/26/19 08:59 Last Admin: 02/25/19 08:23 Dose: 1 tab Documented by: Potassium Chloride (Klor-Con M20) 20 meq PO DAILY [facility] Stop: 03/26/19 08:59 Last Admin: 02/25/19 08:22 Dose: 20 meq Documented by: Fluticasone/Salmeterol (Advair Diskus 250/50) 1 puffs INH BID [facility] Stop: 03/25/19 20:59 Last Admin: 02/25/19 08:23 Dose: 1 puffs Documented by: Tramadol HCl (Ultram) 50 mg PO Q6H PRN PRN Reason: Pain Stop: 03/25/19 17:38 Trolamine Salicylate (Myoflex) 1 appln EXT TID PRN PRN Reason: marin, sore muscles Stop: 03/26/19 16:09 Last Admin: 02/24/19 17:36 Dose: 1 appln Documented by: (1) Anemia Anemia type: unspecified type Qualified Code(s): D64.9 - Anemia, unspecified (2) Pulmonary embolism Acute cor pulmonale presence: without acute cor pulmonale Chronicity: unspecified Pulmonary embolism type: saddle Qualified Code(s): I26.92 - Saddle embolus of pulmonary artery without acute cor pulmonale
[2019-02-25] MEDS: TRAMADOL HCL 50 MG TABLET PO PRN (20:15)
[2019-02-25] MEDS: DASATINIB PO SCH (20:16)
[2019-02-25] MEDS: TROLAMINE SALICYLATE 10% CRM 255 APPLN/85 GM TUBE EXT PRN (20:16)
[2019-02-26 06:33] LABS: INR 1.8 (0.9-1.1); Prothrombin Time 17.9 Seconds (9.0-12.0)
[2019-02-26] MEDS: ALBUT/IPRATROP 3MG/0.5MG NEB 3 ML VIAL NEB SCH (06:56)
[2019-02-26 07:01] LABS: Est GFR (African American) 32.7; Est GFR (Non-African American) 28.2
[2019-02-26] MEDS: INSULIN ASPART 100 UNITS/ML 3 ML PEN SC SCH ×4 (07:52→20:05)
[2019-02-26] MEDS: ACETAMINOPHEN 500 MG TAB PO SCH ×2 (07:53→15:56)
[2019-02-26] MEDS: DASATINIB PO SCH ×2 (08:04→20:05)
[2019-02-26] MEDS: lisinopriL 10 MG TAB PO SCH (08:06)
[2019-02-26] MEDS: POTASSIUM CHLORIDE 20 MEQ TABCR PO SCH (08:07)
[2019-02-26] MEDS: METOPROLOL SUCC 25MG EXT REL TAB PO SCH (08:08)
[2019-02-26] MEDS: CEROVITE ADV FORMULA TAB PO SCH (08:08)
[2019-02-26] MEDS: INSULIN DETEMIR FLEXPEN/FLEX TOUCH 100 UNITS/ML 3ML SQ SCH ×2 (08:09→20:03)
[2019-02-26] MEDS: FLUTICASONE/SALMETEROL 250/50 (ADVAIR) 14 PUFF/1 INHALER INH SCH ×2 (08:11→20:01)
[2019-02-26] MEDS: allopurinoL 300 MG TAB PO SCH (10:37)
--- NOTE | 2019-02-26 11:19 | Infectious Disease Progress Nt ---
Date of Service February 26, 2019 Assessment & Plan (1) Gram positive sepsis: finish rocephin after todays dose, alpha strep likely skin valentin, no additional abx needed. ok for d/c home from ID standpoint when otherwise stable. Subjective pt feeling much better today, breathing much improved. asking to go home. no f/c. tolerating abx. no abd pain, no n/v/d. no gu symptoms. wbc 4.9. / blood culture growing alpha strep, likely skin valentin. on ctx, tolerating well. Review of Systems Review of Systems: All systems reviewed & are unremarkable except as noted in HPI & below Physical Exam Constitutional: WD/WN, vitals as above Eyes: PERRL, conjunctivae normal, anicteric sclerae ENMT: external ear and nose normal, oropharynx normal Neck: normal visual inspection Respiratory: normal respiratory effort, lungs clear to auscultation Auscultation: + diminished lung sounds Cardiovascular: RRR, no murmur, no edema Gastrointestinal (Abdomen): normal bowel sounds, soft, nontender, no hepatosplenomegaly Musculoskeletal: no cyanosis or clubbing, extremities motor strength 5/5 Skin: no rashes, warm and dry Psychiatric: A+Ox3, euthymic affect Results & Data Vital Signs (Past 12 Hours) Vital Signs Temp Pulse Pulse Resp BP BP Pulse Ox 02/26/19 08:00 81 02/26/19 07:17 36.8 C 84 20 115/67 95 02/26/19 06:57 82 16 94 02/26/19 04:38 37 C 84 16 116/66 92 02/26/19 00:20 82 Laboratory Results Microbiology 02/23/19 15:51 Blood Aerobic Blood Culture - Preliminary No growth in Aerobic bottle after 48 hours. 02/23/19 15:51 Blood Anaerobic Blood Culture - Preliminary No growth in Anaerobic bottle after 48 hours. 02/23/19 15:42 Blood Aerobic Blood Culture - Preliminary No growth in Aerobic bottle after 48 hours. 02/23/19 15:42 Blood Anaerobic Blood Culture - Preliminary Alpha strep not S.pne/enteroco 02/23/19 12:10 Urine,Clean Catch Urine Culture - Final Klebsiella pneumoniae PG Care Time/CCT Total # of Minutes Spent Total Time Spent with Patient: Total time spent is greater than 50% in coordination of care (as documented) at patient's floor/unit and/or counseling patient:
[2019-02-26] MEDS: cefTRIAXone SODIUM 2,000 MG in DEXTROSE 5% 50 ML IV SCH (12:18)
--- NOTE | 2019-02-26 12:34 | Pulmonology Progress Note ---
Date of Service February 26, 2019 Assessment & Plan (1) Pleural effusion: INR 1.8 today. Will drain effusion today. Bridge with heparin or lovenox today given history of PE. Hold evening dose of lovenox if given BID. Hold Heparin at 4 am if Heparin ggt utilized. Apparently she had a thora in [facility] per her account earlier in the year. I looked through the patient's records from [place] with Dr. Fontaine and we were unable to find the results of a thoracentesis. The pleural effusion maybe secondary to Dasatinib which she is getting for ALL. Will see if it is lymphocyte predominant on cell count. She is reluctant to undergo the procedure, but ultimately willing if necessary. Prior echo with no significant chf. She appears to be going into renal failure with diuresis. Hold diuresis today. (2) Acute and chronic respiratory failure with hypoxia: (3) Supratherapeutic INR: (4) Pulmonary embolism: Pulmonary embolism type: saddle Chronicity: unspecified Acute cor pulmonale presence: without acute cor pulmonale Qualified Code(s): I26.92 - Saddle embolus of pulmonary artery without acute cor pulmonale (5) Moderate COPD (chronic obstructive pulmonary disease): (6) MARCO (obstructive sleep apnea): Subjective Patient feels better today. Sitting at side of the bed and eating lunch. No chest pain. Shortness of breath and swelling much improved. No nausea or vomiting. Physical Exam Constitutional: WD/WN, vitals as above Nasal cannula in place Eyes: PERRL, conjunctivae normal, anicteric sclerae ENMT: external ear and nose normal, oropharynx normal Neck: normal visual inspection Respiratory: normal respiratory effort, lungs clear to auscultation Cardiovascular: RRR, no murmur, no edema Gastrointestinal (Abdomen): normal bowel sounds, soft, nontender, no hepatosplenomegaly Musculoskeletal: no cyanosis or clubbing, extremities motor strength 5/5 Skin: no rashes, warm and dry Neurologic: PERRL, EOMI, accommodation nl, no face palsy, no dysarthria Psychiatric: A+Ox3, euthymic affect Results & Data Vital Signs (Past 12 Hours) Vital Signs Temp Pulse Pulse Resp BP BP Pulse Ox 02/26/19 11:18 98.4 F 68 18 115/69 97 02/26/19 08:00 81 02/26/19 07:17 98.3 F 84 20 115/67 95 02/26/19 06:57 82 16 94 02/26/19 04:38 98.6 F 84 16 116/66 92 Pertinent labs and chest imaging reviewed. PG Care Time/CCT Total # of Minutes Spent Total Time Spent with Patient: Total time spent is greater than 50% in coordination of care (as documented) at patient's floor/unit and/or counseling patient:
[2019-02-26] MEDS ORDERED: ENOXAPARIN 150 MG/ML SYR SQ ONE (13:30)
--- NOTE | 2019-02-26 16:17 | Hospitalist Progress Note ---
Date of Service February 26, 2019 Assessment & Plan (1) Acute on chronic kidney failure: CKD III at baseline. Was aggressively diuresed over the weekend with resultant FREDDY. It is also noted that lisinopril was restarted this admission secondary to elevated blood pressure, which may be contributing to elevated creat. However, in the setting of a parallel metabolic alkalosis, suspect this is more related to Lasix. Cont to hydrate as tolerated. (2) Pleural effusion: Improved with Lasix but persistent. Pulm following. Oxygenating at baseline. Diuresis held in setting of FREDDY. Pulm following and will consider thoracentesis when INR trends down if needed. Strict I/Os. (3) Chronic respiratory failure: 2/2 COPD. Reports being on 3L oxygen continuously. Currently on 2L at rest and took a walk around the hallways today without much difficult. (4) COPD (chronic obstructive pulmonary disease): Cont Duonebs and Advair. (5) Pulmonary embolism: h/o provoked PE after prolonged hospitalization in the setting of multiple infections and active cancer earlier this year. Cont coumadin and discuss the need to continue this with Dr. Nix or PCP after discharge. (6) Supratherapeutic INR: Hold coumadin and trend INR daily. (7) ALL (acute lymphoblastic leukemia): Diagnosed in 04/2018, Follows with Dr Nix, Continue dasatinib (8) Hypertension: Hold lisinopril in setting of FREDDY (9) Anemia: Chronic anemia 2/2 chronic disease Hgb: 9.8. Baseline 8.7-10) -Monitor H&H (10) Diabetes mellitus: A1c: 5.4 on 01/07/19, glucose is at goal, Continue home Levemir and correction factor as needed. No carb coverage. (11) DVT prophylaxis: coumadin held pending possible thoracentesis. INR subtherapeutic. Give one dose of Lovenox now. Full code Dispo-pending clinical improvement. Expect to home when medically stable. Angy Fontaine DO [facility] Hospitalist Subjective feeling well today denies SOB breathing at baseline tolerating PO Afebrile ambulating independently Review of Systems Review of Systems: All systems reviewed & are unremarkable except as noted in HPI & below Results & Data Vital Signs (Past 12 Hours) Vital Signs Temp Pulse Pulse Resp BP BP Pulse Ox 02/26/19 15:30 36.8 C 79 16 112/59 L 96 02/26/19 11:18 36.9 C 68 18 115/69 97 02/26/19 08:00 81 02/26/19 07:17 36.8 C 84 20 115/67 95 02/26/19 06:57 82 16 94 02/26/19 04:38 37 C 84 16 116/66 92 Laboratory Results BMP 02/26/19 05:57 Creatinine 1.77 H D Cardiac Enzymes 02/26/19 Range/Units 05:57 Total Creatine Kinase 318 H (26-192) U/L Medications Administered Current Inpatient Medications Acetaminophen (Tylenol) 1,000 mg PO Q8H MOIRA Stop: 03/26/19 15:59 Last Admin: 02/26/19 15:56 Dose: 1,000 mg Documented by: Albuterol (Duoneb) 3 ml NEB BIDR PRN PRN Reason: SOB/wheezing Stop: 03/25/19 18:59 Allopurinol (Zyloprim) 300 mg PO DAILY [facility]A Stop: 03/26/19 08:59 Last Admin: 02/26/19 10:37 Dose: 300 mg Documented by: Atorvastatin Calcium (Lipitor) 40 mg PO PM MO[facility]A Stop: 03/25/19 20:59 Last Admin: 02/23/19 20:59 Dose: 40 mg Documented by: Dasatinib (Sprycel) 1 ea PO BID [facility] Stop: 03/27/19 20:59 Last Admin: 02/26/19 08:04 Dose: 1 ea Documented by: Dextrose (Dextrose 50%) 25 - 50 ml IV UD PRN; Protocol PRN Reason: Hypoglycemia Protocol Stop: 03/25/19 17:38 Glucagon (Glucagen) 1 mg SQ UD PRN; Protocol PRN Reason: Hypoglycemia Protocol Stop: 03/25/19 17:38 Glucose (Glucose 40%) 15 - 30 gm PO UD PRN; Protocol PRN Reason: Hypoglycemia Protocol Stop: 03/25/19 17:38 Glucose (Dex4 Glucose) 4 - 8 tabs PO UD PRN; Protocol PRN Reason: Hypoglycemia Protocol Stop: 03/25/19 17:38 Furosemide 40 mg/ Syringe 4 mls @ 4 mls/min IV BID17 [facility] Stop: 03/25/19 17:38 Last Admin: 02/25/19 16:31 Dose: 4 mls/min Documented by: Ceftriaxone Sodium 2,000 mg/ (Dextrose) 70 mls @ 100 mls/hr IV Q24H [facility]; Protocol Stop: 02/26/19 23:59 Last Infusion: 02/26/19 13:01 Dose: Infused Documented by: Insulin Aspart (Novolog Flexpen) 0 units SC ACHS [facility] Stop: 03/25/19 17:38 Last Admin: 02/26/19 13:01 Dose: Not Given Documented by: Insulin Detemir (Levemir Flextouch) 10 units SQ QPM [facility] Stop: 03/25/19 20:59 Last Admin: 02/25/19 20:22 Dose: 10 units Documented by: Insulin Detemir (Levemir Flextouch) 14 units SQ QAM [facility] Stop: 03/26/19 08:59 Last Admin: 02/26/19 08:09 Dose: 14 units Documented by: Lisinopril (Zestril) 10 mg PO QAM [facility] Stop: 03/26/19 16:59 Last Admin: 02/26/19 08:06 Dose: 10 mg Documented by: Lorazepam (Ativan) 0.5 mg SL BID PRN PRN Reason: Anxiety Stop: 03/25/19 17:38 Metoprolol Succinate (Toprol Xl) 25 mg PO DAILY [facility] Stop: 03/26/19 08:59 Last Admin: 02/26/19 08:08 Dose: 25 mg Documented by: Miscellaneous (Carbohydrates For Hypoglycemia) 15 - 30 gm PO UD PRN PRN Reason: Hypoglycemia Protocol Stop: 03/25/19 17:38 Multivitamins/Minerals (Multivitamin W/ Minerals Tab) 1 tab PO QAM [facility] Stop: 03/26/19 08:59 Last Admin: 02/26/19 08:08 Dose: 1 tab Documented by: Potassium Chloride (Klor-Con M20) 20 meq PO DAILY [facility] Stop: 03/26/19 08:59 Last Admin: 02/26/19 08:07 Dose: 20 meq Documented by: Fluticasone/Salmeterol (Advair Diskus 250/50) 1 puffs INH BID [facility] Stop: 03/25/19 20:59 Last Admin: 02/26/19 08:11 Dose: 1 puffs Documented by: Tramadol HCl (Ultram) 50 mg PO Q6H PRN PRN Reason: Pain Stop: 03/25/19 17:38 Last Admin: 02/25/19 20:15 Dose: 50 mg Documented by: Trolamine Salicylate (Myoflex) 1 appln EXT TID PRN PRN Reason: marin, sore muscles Stop: 03/26/19 16:09 Last Admin: 02/25/19 20:16 Dose: 1 appln Documented by: (1) Anemia Anemia type: unspecified type Qualified Code(s): D64.9 - Anemia, unspecified (2) Pulmonary embolism Acute cor pulmonale presence: without acute cor pulmonale Chronicity: unspecified Pulmonary embolism type: saddle Qualified Code(s): I26.92 - Saddle embolus of pulmonary artery without acute cor pulmonale
[2019-02-26] MEDS: ATORVASTATIN 40 MG TAB PO SCH (20:04)
[2019-02-26] MEDS ORDERED: ACETAMINOPHEN 325 MG TAB PO PRN (22:00)
[2019-02-27] MEDS: POTASSIUM CHLORIDE 20 MEQ TABCR PO SCH (07:36)
[2019-02-27] MEDS: lisinopriL 10 MG TAB PO SCH (07:36)
[2019-02-27] MEDS: FLUTICASONE/SALMETEROL 250/50 (ADVAIR) 14 PUFF/1 INHALER INH SCH ×2 (07:36→21:18)
[2019-02-27] MEDS: allopurinoL 300 MG TAB PO SCH (07:37)
[2019-02-27] MEDS: CEROVITE ADV FORMULA TAB PO SCH (07:37)
[2019-02-27] MEDS: METOPROLOL SUCC 25MG EXT REL TAB PO SCH (07:37)
[2019-02-27] MEDS: INSULIN DETEMIR FLEXPEN/FLEX TOUCH 100 UNITS/ML 3ML SQ SCH ×2 (07:39→21:19)
[2019-02-27] MEDS: DASATINIB PO SCH ×2 (07:40→21:17)
[2019-02-27] MEDS: INSULIN ASPART 100 UNITS/ML 3 ML PEN SC SCH ×4 (08:38→21:19)
[2019-02-27 08:49] LABS: Hematocrit (blood only) 37.5 % (37-47); Hemoglobin 11.7 g/dL (12.0-16.0); Mean Corpuscular Hemoglobin 30.9 pg (25-34); Mean Corpuscular Hgb Conc 31.2 g/dL (32-36); Mean Corpuscular Volume 98.9 fL (80-100); Mean Platelet Volume 8.7 fL (7.4-10.4); Platelet Count 217 K/uL (130-400); RDW Coefficient of Variation 16.7 % (11.5-14.5); RDW Standard Deviation 60.9 fL (36.4-46.3); Red Blood Count 3.79 M/uL (4.2-5.4); White Blood Count 6.29 K/uL (4.8-10.8)
[2019-02-27 09:01] LABS: INR 1.5 (0.9-1.1); Prothrombin Time 15.2 Seconds (9.0-12.0)
[2019-02-27 09:27] LABS: BUN Creatinine Ratio 15.7 (10-20); Calcium 8.9 mg/dl (8.5-10.1); Creatinine Clr Calc Pharmacy 24.4 ml/min; Est GFR (African American) 23.6; Est GFR (Non-African American) 20.3; Potassium 3.8 mmol/L (3.5-5.1)
[2019-02-27] MEDS ORDERED: SODIUM CHLORIDE 0.9% 1000ML 1,000 ML IV SCH (11:00)
--- NOTE | 2019-02-27 12:56 | Procedure Note ---
Procedure Note Date of Service February 27, 2019 Procedure: Diagnostic therapeutic ultrasound-guided catheter thoracentesis Mine Safety Director: Dr. Riccardo Mancera Indication: Pleural effusion Consent: Signed by patient and verified with timeout prior to procedure Anesthesia: 8 mL's of 1% lidocaine without epinephrine given locally Procedure: Consent was verified and timeout performed. Appropriate imaging studies were reviewed prior to the procedure. Patient was placed in a seated position and limited thoracic ultrasound was performed of the left posterior chest. See separate imaging. The site appropriate for thoracentesis was selected. The skin was prepped and draped in normal sterile fashion. Lidocaine was used for local analgesia. Fluid was aspirated via the finder needle. A small skin faby was made with the scalpel and the catheter over the needle apparatus was advanced over the rib into the pleural space. Using the syringe one-way valve system, a total of 15 mL's of marlon fluid was removed. Procedure was terminated due to inability of threading catheter over the needle. Catheter kept kinking like due to acute angle of the rib. The catheter was removed and observed to be intact. A sterile dressing was applied. Post procedure chest x-ray was ordered. Fluid was sent for LDH, total protein, cell count, glucose, pH, cytology and flow cytometry. The patient tolerated the procedure well without obvious complication. Post procedure cxr with no evidence of ptx. Coding CPT Codes Pulmonary/Thoracic - Pulmonary and Thoracic: Pleural drainage w/imaging ([id number])
--- NOTE | 2019-02-27 12:58 | XRay Report ---
XR chest 1V portable CLINICAL HISTORY: s/p left thoracentesis postthoracentesis COMPARISON STUDY: 02/25/2019 FINDINGS: Unchanged left pleural effusion. No significant postprocedural pneumothorax. Minimal atelectasis right base considered unchanged. IMPRESSION: No evidence for pneumothorax postthoracentesis. Unchanged left pleural effusion. The above report was generated using voice recognition software. It may contain grammatical, syntax or spelling errors. Electronically signed by: Navid Serrano M.D. 02/27/2019 12:57 PM
[2019-02-27] MEDS: TRAMADOL HCL 50 MG TABLET PO PRN ×2 (13:43→19:13)
[2019-02-27 13:48] LABS: Glucose Pleural Fluid 149 mg/dl
[2019-02-27 13:53] LABS: LDH Pleural Fluid 208 U/L; Total Protein Pleural Fluid 4.3 g/dl
[2019-02-27 14:26] LABS: Eosinophils, Fluid 0 %; Lymphocytes, Fluid 50 %; Mono,Macrophage,Mesothelial 48 %; Neutrophils, Fluid 2 %
[2019-02-27 14:28] LABS: Appearance Pleural Fluid CLOUDY; Color Pleural Fluid STRAW; RBC Pleural Fluid (A) 14000 /uL; Source Pleural Fluid LEFT LUNG; WBC Pleural Fluid (A) 887 /uL
--- NOTE | 2019-02-27 15:21 | Pulmonology Progress Note ---
Date of Service February 27, 2019 Assessment & Plan (1) Pleural effusion: INR 1.5 today. Only able to remove about 15 ml of fluid from the pleural space today. Difficulty with threading the catheter over the needle. The pleural effusion appears to be exudative and lymphocytic predominant likely secondary to Dasatinib which she is getting for leukemia. Culture, cytology and flow cytometry pending. Recommend getting radiology to drain the effusion completely and re-evaluating for recurrence. If it recurs, then will need discussion with oncology regarding possible alternative therapy. Prior echo with no significant chf. She appears to be going into renal failure. Continue to hold diuresis. (2) Acute and chronic respiratory failure with hypoxia: (3) Supratherapeutic INR: (4) Pulmonary embolism: Acute cor pulmonale presence: without acute cor pulmonale Chronicity: unspecified Pulmonary embolism type: saddle Qualified Code(s): I2 6.92 - Saddle embolus of pulmonary artery without acute cor pulmonale (5) Moderate COPD (chronic obstructive pulmonary disease): (6) MARCO (obstructive sleep apnea): Subjective Patient sitting up in bed eating lunch today. No complaints. No chest pain. No fevers, chills or night sweats. Thoracentesis performed today. See separate note for details. Physical Exam Constitutional: WD/WN, vitals as above Eyes: PERRL, conjunctivae normal, anicteric sclerae ENMT: external ear and nose normal, oropharynx normal Neck: normal visual inspection Respiratory: normal respiratory effort, lungs clear to auscultation Cardiovascular: RRR, no murmur, no edema Gastrointestinal (Abdomen): normal bowel sounds, soft, nontender, no hepatosp lenomegaly Musculoskeletal: no cyanosis or clubbing, extremities motor strength 5/5 Skin: no rashes, warm and dry Neurologic: PERRL, EOMI, accommodation nl, no face palsy, no dysarthria Psychiatric: A+Ox3, euthymic affect Results & Data Vital Signs (Past 12 Hours) Vital Signs Temp Pulse Resp BP BP Pulse Ox 02/27/19 15:09 98.4 F 80 20 114/67 96 02/27/19 07:19 97.5 F L 86 22 124/64 96 I personally reviewed pertinent labs and chest imaging. PG Care Time/CCT Total # of Minutes Spent Total Time Spent with Patient: Total time spent is greater than 50% in coordination of care (as documented) at patient's floor/unit and/or counseling patient:
--- NOTE | 2019-02-27 16:58 | CT Scan Report ---
CT chest wo con CT DOSE: 492.33 mGy.cm HISTORY: Evaluate left pleural effusion TECHNIQUE: Multiaxial CT images of the chest were performed without contrast. A dose lowering techni que was utilized adhering to the principles of ALARA. COMPARISON: 06/24/2018 FINDINGS: Unchanged left lower lobe consolidative change. Partial additional left upper lobe and/or l ingular consolidative change. Left pleural effusion showing somewhat higher density than simple fluid. Findings suggesting interstitial edema. Mild stable cardiomegaly. IMPRESSION: 1. Left pleural effusion. This is higher density than simple pleural fluid. 2. Unchanging consolidative changes left lower lobe and to a lesser extent lingula. 3. Developing interstitial edema. The above report was generated using voice recognition software. It may contain grammatical, syntax or spelling errors. Electronically signed by: Navid Serrano M.D. 02/27/2019 4:57 PM
[2019-02-27] MEDS: ALBUT/IPRATROP 3MG/0.5MG NEB 3 ML VIAL NEB PRN (17:23)
--- NOTE | 2019-02-27 18:41 | Hospitalist Progress Note ---
Date of Service February 27, 2019 Assessment & Plan (1) Acute on chronic kidney failure: CKD III at baseline. Was aggressively diuresed over the weekend with resultant FREDDY. It is also noted that lisinopril was restarted this admission secondary to elevated blood pressure, which may be contributing to elevated creat. However, in the setting of a parallel metabolic alkalosis, suspect this is more related to Lasix. Cont to hydrate as tolerated. (2) Pleural effusion: Thought from Dasatinib. Cont to take this, however. Plan is to drain effusion and then monitor for recurrence. Pt needs to follow-up with Oncology regarding further options. Thoracentesis today with minimal pleural fluid return. May plan for reattempt. (3) Chronic respiratory failure: 2/2 COPD. At her baseline. Cont chronic oxygen supplementation (4) COPD (chronic obstructive pulmonary disease): Cont Duonebs and Advair. (5) Pulmonary embolism: h/o provoked PE after prolonged hospitalization in the setting of multiple infections and active cancer earlier this year. cont anticoagulation (heparin if subtherapeutic while coumadin on hold) (6) ALL (acute lymphoblastic leukemia): Diagnosed in 04/2018, Follows with Dr Nix, Continue dasatinib (7) Hypertension: at goal, lisinopril held in setting of FREDDY. (8) Anemia: Chronic anemia 2/2 chronic disease Hgb: 9.8. Baseline 8.7-10) -Monitor H&H which is stable (9) Diabetes mellitus: A1c: 5.4 on 01/07/19, glucose is at goal, Continue home Levemir and correction factor as needed. No carb coverage. (10) DVT prophylaxis: Held for procedure Full code Dispo-pending clinical improvement. Expect to home when medically stable. Angy Fontaine DO [facility] Hospitalist Subjective feeling well today denies SOB breathing at baseline had some difficulty with thoracentesis earlier tolerating PO Afebrile Review of Systems Review of Systems: All systems reviewed & are unremarkable except as noted in HPI & below Physical Exam Physical Exam: CONSTITUTIONAL: obese, vitals as above, generally well- appearing EYES: normal conjunctivae, no scleral icterus ENT: MMM RESPIRATORY: normal respiratory effort. clear to auscultation throughout, diminished breath sounds at left base. CARDIOVASCULAR: regular rate and rhythm, S1 and 2 heard without murmurs, gallops or rubs, no JVD, no peripheral edema CHEST: inspection of chest was normal. GASTROINTESTINAL: soft, nontender, nondistended MUSCULOSKELETAL: strength 5/5 throughout, head is normocephalic and atraumatic SKIN: warm and dry NEUROLOGIC: CN 2-12 grossly intact, normal cognition, no gross focal deficits. PSYCHIATRIC: alert cooperative and oriented to person, place and time. Results & Data Vital Signs (Past 12 Hours) Vital Signs Temp Pulse Resp BP BP Pulse Ox 02/27/19 17:23 87 16 96 02/27/19 15:09 36.9 C 80 20 114/67 96 02/27/19 07:19 36.4 C L 86 22 124/64 96 Laboratory Results Short CBC 02/27/19 Range/Units 08:37 WBC 6.29 (4.8-10.8) K/uL Hgb 11.7 L (12.0-16.0) g/dL Hct 37.5 (37-47) % Plt Count 217 (130-400) K/uL BMP 02/27/19 08:37 Sodium 138 Potassium 3.8 Chloride 99 Carbon Dioxide 33 H BUN 37 H Creatinine 2.32 H D Glucose 150 H Calcium 8.9 Medications Administered Current Inpatient Medications Acetaminophen (Tylenol) 650 mg PO Q6H PRN PRN Reason: Pain or Fever Stop: 03/28/19 21:59 Albuterol (Duoneb) 3 ml NEB BIDR PRN PRN Reason: SOB/wheezing Stop: 03/25/19 18:59 Last Admin: 02/27/19 17:23 Dose: 3 ml Documented by: Allopurinol (Zyloprim) 300 mg PO DAILY [facility] Stop: 03/26/19 08:59 Last Admin: 02/27/19 07:37 Dose: 300 mg Documented by: Atorvastatin Calcium (Lipitor) 40 mg PO PM [facility] Stop: 03/25/19 20:59 Last Admin: 02/26/19 20:04 Dose: 40 mg Documented by: Dasatinib (Sprycel) 1 ea PO BID [facility] Stop: 03/27/19 20:59 Last Admin: 02/27/19 07:40 Dose: 1 ea Documented by: Dextrose (Dextrose 50%) 25 - 50 ml IV UD PRN; Protocol PRN Reason: Hypoglycemia Protocol Stop: 03/25/19 17:38 Glucagon (Glucagen) 1 mg SQ UD PRN; Protocol PRN Reason: Hypoglycemia Protocol Stop: 03/25/19 17:38 Glucose (Glucose 40%) 15 - 30 gm PO UD PRN; Protocol PRN Reason: Hypoglycemia Protocol Stop: 03/25/19 17:38 Glucose (Dex4 Glucose) 4 - 8 tabs PO UD PRN; Protocol PRN Reason: Hypoglycemia Protocol Stop: 03/25/19 17:38 Sodium Chloride (Nss 1000ml) 1,000 mls @ 100 mls/hr IV .Q10H [facility] Stop: 02/28/19 06:59 Last Admin: 02/27/19 11:17 Dose: 100 mls/hr Documented by: Insulin Aspart (Novolog Flexpen) 0 units SC ACHS [facility] Stop: 03/25/19 17:38 Last Admin: 02/27/19 17:11 Dose: Not Given Documented by: Insulin Detemir (Levemir Flextouch) 10 units SQ QPM [facility] Stop: 03/25/19 20:59 Last Admin: 02/26/19 20:03 Dose: 10 units Documented by: Insulin Detemir (Levemir Flextouch) 14 units SQ QAM [facility] Stop: 03/26/19 08:59 Last Admin: 02/27/19 07:39 Dose: 14 units Documented by: Lisinopril (Zestril) 10 mg PO QAM [facility] Stop: 03/26/19 16:59 Last Admin: 02/27/19 07:36 Dose: 10 mg Documented by: Lorazepam (Ativan) 0.5 mg SL BID PRN PRN Reason: Anxiety Stop: 03/25/19 17:38 Metoprolol Succinate (Toprol Xl) 25 mg PO DAILY [facility] Stop: 03/26/19 08:59 Last Admin: 02/27/19 07:37 Dose: 25 mg Documented by: Miscellaneous (Carbohydrates For Hypoglycemia) 15 - 30 gm PO UD PRN PRN Reason: Hypoglycemia Protocol Stop: 03/25/19 17:38 Multivitamins/Minerals (Multivitamin W/ Minerals Tab) 1 tab PO QAM [facility] Stop: 03/26/19 08:59 Last Admin: 02/27/19 07:37 Dose: 1 tab Documented by: Potassium Chloride (Klor-Con M20) 20 meq PO DAILY [facility] Stop: 03/26/19 08:59 Last Admin: 02/27/19 07:36 Dose: 20 meq Documented by: Fluticasone/Salmeterol (Advair Diskus 250/50) 1 puffs INH BID [facility] Stop: 03/25/19 20:59 Last Admin: 02/27/19 07:36 Dose: 1 puffs Documented by: Tramadol HCl (Ultram) 50 mg PO Q6H PRN PRN Reason: Pain Stop: 03/25/19 17:38 Last Admin: 02/27/19 13:43 Dose: 50 mg Documented by: Trolamine Salicylate (Myoflex) 1 appln EXT TID PRN PRN Reason: marin, sore muscles Stop: 03/26/19 16:09 Last Admin: 02/25/19 20:16 Dose: 1 appln Documented by: (1) Anemia Anemia type: unspecified type Qualified Code(s): D64.9 - Anemia, unspecified (2) Pulmonary embolism Acute cor pulmonale presence: without acute cor pulmonale Chronicity: unspecified Pulmonary embolism type: saddle Qualified Code(s): I26.92 - Saddle embolus of pulmonary artery without acute cor pulmonale
[2019-02-27] MEDS ORDERED: Heparin IV Standard *NO* Bolus IV SCH (18:50)
[2019-02-27] MEDS: HEPARIN SODIUM/DEXTROSE 25,000 UNITS/500 ML BAG IV SCH (19:18)
[2019-02-27] MEDS: ATORVASTATIN 40 MG TAB PO SCH (21:18)
[2019-02-28 02:21] LABS: INR 1.3 (0.9-1.1); Partial Thromboplastin Ratio 2.4; Prothrombin Time 13.5 Seconds (9.0-12.0)
[2019-02-28 02:28] LABS: Partial Thromboplastin Time 65.2 Seconds (21.0-31.0)
[2019-02-28] MEDS: TRAMADOL HCL 50 MG TABLET PO PRN ×2 (03:52→16:24)
[2019-02-28 06:59] LABS: Partial Thromboplastin Ratio 3.4
[2019-02-28] MEDS: INSULIN ASPART 100 UNITS/ML 3 ML PEN SC SCH ×4 (07:44→20:49)
[2019-02-28] MEDS ORDERED: ONDANSETRON INJ 2 MG/ML 2 ML VIAL IV PRN (07:48)
[2019-02-28] MEDS: CEROVITE ADV FORMULA TAB PO SCH (08:21)
[2019-02-28] MEDS: allopurinoL 300 MG TAB PO SCH (08:21)
[2019-02-28] MEDS: POTASSIUM CHLORIDE 20 MEQ TABCR PO SCH (08:22)
[2019-02-28] MEDS: METOPROLOL SUCC 25MG EXT REL TAB PO SCH (08:22)
[2019-02-28] MEDS: FLUTICASONE/SALMETEROL 250/50 (ADVAIR) 14 PUFF/1 INHALER INH SCH ×2 (08:23→20:44)
[2019-02-28] MEDS: DASATINIB PO SCH ×2 (08:23→20:45)
[2019-02-28] MEDS: INSULIN DETEMIR FLEXPEN/FLEX TOUCH 100 UNITS/ML 3ML SQ SCH ×2 (08:25→20:44)
[2019-02-28 08:33] LABS: Basophils # (auto) 0.06 K/uL (0-0.2); Basophils % (auto) 1.1 %; Eosinophils # (auto) 0.34 K/uL (0-0.5); Hematocrit (blood only) 34.3 % (37-47); Hemoglobin 10.7 g/dL (12.0-16.0); Immature Granulocytes # (auto) 0.01 K/uL (0.00-0.02); Immature Granulocytes % (auto) 0.2 %; Lymphocytes # (auto) 1.26 K/uL (1.2-3.4); Lymphocytes % (auto) 22.1 %; Mean Corpuscular Hemoglobin 31.1 pg (25-34); Mean Corpuscular Hgb Conc 31.2 g/dL (32-36); Mean Corpuscular Volume 99.7 fL (80-100); Mean Platelet Volume 9.3 fL (7.4-10.4); Monocytes # (auto) 0.47 K/uL (0.11-0.59); Monocytes % (auto) 8.2 %; Neutrophils # (auto) 3.57 K/uL (1.4-6.5); Neutrophils % (auto) 62.4 %; Platelet Count 217 K/uL (130-400); RDW Coefficient of Variation 16.7 % (11.5-14.5); RDW Standard Deviation 61.1 fL (36.4-46.3); Red Blood Count 3.44 M/uL (4.2-5.4); White Blood Count 5.71 K/uL (4.8-10.8)
[2019-02-28 08:42] LABS: BUN Creatinine Ratio 20.2 (10-20); Calcium 8.5 mg/dl (8.5-10.1); Creatinine Clr Calc Pharmacy 29.6 ml/min; Est GFR (African American) 29.8; Est GFR (Non-African American) 25.7
--- NOTE | 2019-02-28 11:17 | Pulmonology Progress Note ---
Date of Service February 28, 2019 Assessment & Plan (1) Pleural effusion: Pleural effusion likely secondary to Dasatinib. Discussed with Dr. Nix of oncology who agrees. I will discuss with radiology regarding drainage of the effusion. May reattempt to drain it completely tomorrow. Please hold heparin drip at 5 am. Cytology and micro pending on pleural fluid. Fluid is lymphocytic predominant and exudative. (2) Acute and chronic respiratory failure with hypoxia: (3) Supratherapeutic INR: (4) Pulmonary embolism: Pulmonary embolism type: saddle Chronicity: unspecified Acute cor pulmonale presence: without acute cor pulmonale Qualified Code(s): I26.92 - Saddle embolus of pulmonary artery without acute cor pulmonale (5) Moderate COPD (chronic obstructive pulmonary disease): (6) MARCO (obstructive sleep apnea): Subjective Patient continues to well today. No significant complaints. No chest pain, fevers, chills or night sweats. Physical Exam Constitutional: WD/WN, vitals as above Eyes: PERRL, conjunctivae normal, anicteric sclerae ENMT: external ear and nose normal, oropharynx normal Neck: normal visual inspection Respiratory: normal respiratory effort, lungs clear to auscultation Cardiovascular: RRR, no murmur, no edema Gastrointestinal (Abdomen): normal bowel sounds, soft, nontender, no hepatosplenomegaly Musculoskeletal: no cyanosis or clubbing, extremities motor strength 5/5 Skin: no rashes, warm and dry Neurologic: PERRL, EOMI, accommodation nl, no face palsy, no dysarthria Psychiatric: A+Ox3, euthymic affect Results & Data Vital Signs (Past 12 Hours) Vital Signs Temp Pulse Resp BP Pulse Ox 02/28/19 07:39 97.5 F L 74 16 95/56 L 96 PG Care Time/CCT Total # of Minutes Spent Total Time Spent with Patient: Total time spent is greater than 50% in coordination of care (as documented) at patient's floor/unit and/or counseling patient:
[2019-02-28 14:07] LABS: Creatinine Clr Calc Pharmacy 34.5 ml/min; Est GFR (African American) 35.8; Est GFR (Non-African American) 30.9
[2019-02-28 14:11] LABS: Partial Thromboplastin Ratio 2.7
[2019-02-28 14:21] LABS: Partial Thromboplastin Time 72.3 Seconds (21.0-31.0)
[2019-02-28] MEDS: HEPARIN SODIUM/DEXTROSE 25,000 UNITS/500 ML BAG IV SCH (16:59)
--- NOTE | 2019-02-28 17:16 | Hospitalist Progress Note ---
Date of Service February 28, 2019 Assessment & Plan (1) Acute on chronic kidney failure: Overdiuresis recently with Lasix. Has been on hold for past two days. IVF given yesterday. Will give another two bags now. Repeat BMP in am. She is improved. (2) Pleural effusion: Recent diuresis. s/p thoracentesis yesterday with min fluid on tap. Plan for repeat thoracentesis. Etiology thought to be secondary to Srycel therapy. Pulm spoke with Hematology and will continue this drug for now. Thora tomorrow to drain effusion and monitor for return as outpatient. NPO p MN as she will be sedated for this procedure. Oxygenating at her baseline today and otherwise doing well. (3) Chronic respiratory failure: 2/2 COPD. 3L oxygen continuously per home regimen. (4) COPD (chronic obstructive pulmonary disease): chronic, stable. (5) Pulmonary embolism: h/o provoked PE after prolonged hospitalization in the setting of multiple infections and active cancer earlier this year. Heparin drip as a bridge while off coumadin. Will likely need Lovenox bridge when discharged until coumadin therapeutic. (6) ALL (acute lymphoblastic leukemia): Diagnosed in 04/2018, Follows with Dr Nix, Continue dasatinib (7) Hypertension: On lisinopril while is on hold in setting of FREDDY. (8) Anemia: ACD-improved and stable. (9) Diabetes mellitus: A1c: 5.4 on 01/07/19, glucose is at goal, Continue home Levemir and correction factor as needed. No carb coverage. (10) DVT prophylaxis: heparin drip Full code Dispo-Expect to home when medically stable. Angy Fontaine DO [facility] Hospitalist Subjective feeling well today denies SOB denies pain in thoracentesis site tolerating PO BM+ Review of Systems Review of Systems: All systems reviewed & are unremarkable except as noted in HPI & below Physical Exam Physical Exam: CONSTITUTIONAL: obese, vitals as above, generally well- appearing EYES: normal conjunctivae, no scleral icterus ENT: MMM RESPIRATORY: normal respiratory effort. clear to auscultation throughout, diminished breath sounds at left base. CARDIOVASCULAR: regular rate and rhythm, S1 and 2 heard without murmurs, gallops or rubs, no JVD, no peripheral edema CHEST: inspection of chest was normal. GASTROINTESTINAL: soft, nontender, nondistended MUSCULOSKELETAL: strength 5/5 throughout, head is normocephalic and atraumatic SKIN: warm and dry NEUROLOGIC: CN 2-12 grossly intact, normal cognition, no gross focal deficits. PSYCHIATRIC: alert cooperative and oriented to person, place and time. Results & Data Vital Signs (Past 12 Hours) Vital Signs Temp Pulse Resp BP BP Pulse Ox 02/28/19 15:02 36.8 C 77 16 132/68 92 02/28/19 07:39 36.4 C L 74 16 95/56 L 96 Laboratory Results Short CBC 02/28/19 Range/Units 06:20 WBC 5.71 (4.8-10.8) K/uL Hgb 10.7 L (12.0-16.0) g/dL Hct 34.3 L (37-47) % Plt Count 217 (130-400) K/uL BMP 02/28/19 02/28/19 06:20 13:37 Sodium 139 Potassium 4.0 Chloride 102 Carbon Dioxide 33 H BUN 39 H Creatinine 1.91 H D 1.64 H Glucose 117 H Calcium 8.5 Medications Administered Current Inpatient Medications Acetaminophen (Tylenol) 650 mg PO Q6H PRN PRN Reason: Pain or Fever Stop: 03/28/19 21:59 Albuterol (Duoneb) 3 ml NEB BIDR PRN PRN Reason: SOB/wheezing Stop: 03/25/19 18:59 Last Admin: 02/27/19 17:23 Dose: 3 ml Documented by: Allopurinol (Zyloprim) 300 mg PO DAILY [facility] Stop: 03/26/19 08:59 Last Admin: 02/28/19 08:21 Dose: 300 mg Documented by: Atorvastatin Calcium (Lipitor) 40 mg PO PM [facility] Stop: 03/25/19 20:59 Last Admin: 02/27/19 21:18 Dose: 40 mg Documented by: Dasatinib (Sprycel) 1 ea PO BID [facility] Stop: 03/27/19 20:59 Last Admin: 02/28/19 08:23 Dose: 1 ea Documented by: Dextrose (Dextrose 50%) 25 - 50 ml IV UD PRN; Protocol PRN Reason: Hypoglycemia Protocol Stop: 03/25/19 17:38 Glucagon (Glucagen) 1 mg SQ UD PRN; Protocol PRN Reason: Hypoglycemia Protocol Stop: 03/25/19 17:38 Glucose (Glucose 40%) 15 - 30 gm PO UD PRN; Protocol PRN Reason: Hypoglycemia Protocol Stop: 03/25/19 17:38 Glucose (Dex4 Glucose) 4 - 8 tabs PO UD PRN; Protocol PRN Reason: Hypoglycemia Protocol Stop: 03/25/19 17:38 Heparin Sodium/Dextrose (Heparin Sodium/Dextrose) 25,000 units in 500 mls @ 22 mls/hr IV .[id number] [facility]; Protocol Stop: 03/29/19 19:14 Last Admin: 02/28/19 16:59 Dose: 1,050 units/hr, 21 mls/hr Documented by: Sodium Chloride (Nss 1000ml) 1,000 mls @ 125 mls/hr IV .Q8H [facility] Stop: 03/01/19 09:14 Insulin Aspart (Novolog Flexpen) 0 units SC ACHS [facility] Stop: 03/25/19 17:38 Last Admin: 02/28/19 16:54 Dose: Not Given Documented by: Insulin Detemir (Levemir Flextouch) 10 units SQ QPM [facility] Stop: 03/25/19 20:59 Last Admin: 02/27/19 21:19 Dose: 10 units Documented by: Insulin Detemir (Levemir Flextouch) 14 units SQ QAM [facility] Stop: 03/26/19 08:59 Last Admin: 02/28/19 08:25 Dose: 14 units Documented by: Lisinopril (Zestril) 10 mg PO QAM [facility] Stop: 03/26/19 16:59 Last Admin: 02/27/19 07:36 Dose: 10 mg Documented by: Lorazepam (Ativan) 0.5 mg SL BID PRN PRN Reason: Anxiety Stop: 03/25/19 17:38 Metoprolol Succinate (Toprol Xl) 25 mg PO DAILY [facility] Stop: 03/26/19 08:59 Last Admin: 02/28/19 08:22 Dose: Not Given Documented by: Miscellaneous (Carbohydrates For Hypoglycemia) 15 - 30 gm PO UD PRN PRN Reason: Hypoglycemia Protocol Stop: 03/25/19 17:38 Miscellaneous (Pending Order) 1 ea N/A 03/01/19@0400 [facility] Stop: 03/01/19 04:01 Multivitamins/Minerals (Multivitamin W/ Minerals Tab) 1 tab PO QAM [facility] Stop: 03/26/19 08:59 Last Admin: 02/28/19 08:21 Dose: 1 tab Documented by: Ondansetron HCl (Zofran) 4 mg IV Q8H PRN PRN Reason: n/v Stop: 03/30/19 07:59 Potassium Chloride (Klor-Con M20) 20 meq PO DAILY [facility] Stop: 03/26/19 08:59 Last Admin: 02/28/19 08:22 Dose: 20 meq Documented by: Fluticasone/Salmeterol (Advair Diskus 250/50) 1 puffs INH BID [facility] Stop: 03/25/19 20:59 Last Admin: 02/28/19 08:23 Dose: 1 puffs Documented by: Tramadol HCl (Ultram) 50 mg PO Q6H PRN PRN Reason: Pain Stop: 03/25/19 17:38 Last Admin: 02/28/19 16:24 Dose: 50 mg Documented by: Trolamine Salicylate (Myoflex) 1 appln EXT TID PRN PRN Reason: marin, sore muscles Stop: 03/26/19 16:09 Last Admin: 02/25/19 20:16 Dose: 1 appln Documented by: (1) Pulmonary embolism Pulmonary embolism type: saddle Chronicity: unspecified Acute cor pulmonale presence: without acute cor pulmonale Qualified Code(s): I26.92 - Saddle embolus of pulmonary artery without acute cor pulmonale (2) Anemia Anemia type: unspecified type Qualified Code(s): D64.9 - Anemia, unspecified
[2019-02-28] MEDS: SODIUM CHLORIDE 0.9% 1000ML 1,000 ML IV SCH (18:05)
[2019-02-28] MEDS: ATORVASTATIN 40 MG TAB PO SCH (20:45)
[2019-02-28] MEDS: ALBUT/IPRATROP 3MG/0.5MG NEB 3 ML VIAL NEB PRN (20:59)
[2019-02-28 21:26] LABS: Partial Thromboplastin Ratio 2.1
[2019-02-28 21:37] LABS: Partial Thromboplastin Time 58.2 Seconds (21.0-31.0)
[2019-03-01] MEDS: SODIUM CHLORIDE 0.9% 1000ML 1,000 ML IV SCH (02:11)
[2019-03-01 07:07] LABS: INR 1.1 (0.9-1.1); Prothrombin Time 11.3 Seconds (9.0-12.0)
[2019-03-01 07:31] LABS: BUN Creatinine Ratio 21.1 (10-20); Creatinine Clr Calc Pharmacy 40.7 ml/min; Est GFR (African American) 43.8; Est GFR (Non-African American) 37.8
[2019-03-01] MEDS: INSULIN ASPART 100 UNITS/ML 3 ML PEN SC SCH ×4 (08:05→20:32)
[2019-03-01] MEDS ORDERED: LIDOCAINE HCL 1% 20 ML VIAL ONE (08:10)
--- NOTE | 2019-03-01 08:11 | History & Physical Bridge Note ---
Date of Service March 01, 2019 History & Physical Bridge Note I have examined the patient, reviewed the History & Physical and in the interval since the performance of the History & Physical I have noted the following changes of clinical significance: no changes noted
--- NOTE | 2019-03-01 08:13 | Pre Anesthesia Assessment ---
Date of Service March 01, 2019 Pre Sedation Assessment Vital Signs Temp Pulse Pulse Resp BP BP Pulse Ox 03/01/19 08:08 79 16 130/53 L 95 03/01/19 07:00 98.2 F 78 18 129/69 94 02/28/19 23:10 97.3 F L 79 18 114/63 94 02/28/19 20:59 80 16 97 02/28/19 15:02 98.2 F 77 16 132/68 92 Pre-Sedation Airway Assessment Smoking Status: Former smoker Hx Sleep Apnea: Yes Short, Thick Neck: No Thyromental Distance: > or= 3.5 Finger Breadths Oral Cavity: + Dentures Mallampati Class: II ASA: ASA3 NPO Status Date of Last Intake of Fluids: 03/01/19 Time of Last Intake of Fluids: 06:00 Date of Last Intake of Solid Food: 02/28/19 Time of Last Intake of Solid Foods: 18:00 Notes The planned sedation has been discussed with the patient. Informed Consent was obtained. I have identified the patient, determined the appropriateness of sedation and have assessed the patient immediately prior to the procedure. All medicine(s) and interventions are by my order.
[2019-03-01] MEDS ORDERED: MIDAZOLAM HCL 5 MG/ML 1 ML VIAL IV PRN (09:12)
[2019-03-01] MEDS ORDERED: fentaNYL citrate 100 MCG/2 ML VIAL IV ONE (09:12)
--- NOTE | 2019-03-01 09:15 | Procedure Note ---
Procedure Note Date of Service March 01, 2019 sEDATION TIME 8:22 - 9:09 am 1 MG OF VERSED AND 25 MCG OF FENTANYL Procedure: Diagnostic and therapeutic ultrasound-guided catheter thoracentesis Fire Medic: Dr. Riccardo Mancera Indication: Pleural effusion Consent: Signed by patient and verified with timeout prior to procedure Anesthesia: 15 mL's of 1% lidocaine without epinephrine given locally Procedure: Consent was verified and timeout performed. Appropriate imaging studies were reviewed prior to the procedure. Patient was placed in a semi-recumbent and limited thoracic ultrasound was performed of the left lateral chest. See separate imaging. The site appropriate for thoracentesis was selected. The skin was prepped and draped in normal sterile fashion. Lidocaine was used for local analgesia. Fluid was aspirated via the finder needle. A small skin faby was made with the scalpel and the catheter over the needle apparatus was advanced over the rib into the pleural space. Using the syringe one-way valve system, a total of 900 mL's of sanginous fluid was removed. Procedure was terminated due to no more fluid. The catheter was removed and observed to be intact. A sterile dressing was applied. Post procedure chest x-ray was ordered. Fluid was sent for cell count, cytology, flow cytometry and AFB cultures and fungal cultures. The patient tolerated the procedure well without obvious complication HOLD HEPARIN DRIP TONIGHT AND RESTART TOMORROW MORNING AT 4 AM. OKAY TO EAT AFTER PROCEDURE. Coding CPT Codes Sedation/Anesthesia - Sedation/Anesthesia: Mod Sedation by the same physician;Init15 Min Child Age 5 & Up ([id number]) Pulmonary/Thoracic - Pulmonary and Thoracic: Pleural drainage w/imaging ([id number])
--- NOTE | 2019-03-01 09:20 | XRay Report ---
XR chest 1V portable CLINICAL HISTORY: post procedure COMPARISON STUDY: 02/27/2019 FINDINGS: Improved aeration left base with diminished volume of left effusion. No significant postpro cedural pneumothorax. Parenchymal bronchovascular prominence of lung bases persist. IMPRESSION: No evidence for pneumothorax postthoracentesis. Improved aeration left base. The above report was generated using voice recognition software. It may contain grammatical, syntax or spelling errors. Electronically signed by: Navid Serrano M.D. 03/01/2019 9:18 AM
--- NOTE | 2019-03-01 09:29 | Post Anesthesia Assessment ---
Date of Service March 01, 2019 Post Sedation Assessment Vital Signs Temp Pulse Pulse Resp BP BP Pulse Ox 03/01/19 09:24 76 16 132/62 100 03/01/19 09:19 76 16 130/59 L 100 03/01/19 09:14 80 16 126/64 100 03/01/19 09:09 79 16 128/57 L 100 03/01/19 09:04 79 16 148/60 H 100 03/01/19 09:02 79 16 148/60 H 100 03/01/19 08:57 80 16 137/36 L 100 03/01/19 08:52 76 16 144/71 H 100 03/01/19 08:47 76 13 140/80 99 03/01/19 08:42 77 15 134/66 100 03/01/19 08:37 74 14 142/64 H 100 03/01/19 08:32 76 12 146/61 H 100 03/01/19 08:27 78 16 128/74 100 03/01/19 08:22 78 14 130/53 L 100 03/01/19 08:08 79 16 130/53 L 95 03/01/19 07:00 98.2 F 78 18 129/69 94 02/28/19 23:10 97.3 F L 79 18 114/63 94 02/28/19 20:59 80 16 97 02/28/19 15:02 98.2 F 77 16 132/68 92 Recovery Score Activity: Moves 4 extremities Respiration: Deep Breath/Cough Circulation: +/-20% PreAnes Value Consciousness: Fully Awake Oxygen Saturation: O2 needed for >90% Post Anesthesia Score: 9 Discharge Sedation Level of Care: Fast Track Phase II Post Sedation Plan On clinical assessment, the patient appears to have tolerated the sedation without complications. Patient is recovering as anticipated. Patient will continue to be monitored by nursing and may be discharged when sedation discharge criteria are met per below protocol. Upon Completions of procedure and additional 15 minutes continue every 5 minute vital signs and the P.A.R. score; then discharge to a Phase I or Fast Track to Phase II per the following guidelines: * Discharge Patient to appropriate Phase II area if PAR is 8 or greater or return to pre- procedure baseline. The post - procedure orders will be as directed. * If PAR score is less than 8 or not return to pre-procedure baseline then patient will follow Phase I monitoring till PAR is reached for Phase II. The Phase I may be done in procedure room or may call to secure a Phase I area. * If naloxone or flumazenil are used for reversal, hold in Phase I for continued monitoring from when last reversal dose was given for a minimum of 60 minutes or longer pending the nurse and/or physician discretion of patient condition before discharge to Phase II. Please call the Sedation Physician to re-evaluate and complete post-note for discharge to Phase II area. Do NOT discharge from procedure sedation or Phase 1 until post- sedation evaluation note is complete by procedure /sedation MD Sedation Discharge Instructions to be given to the patient at discharge to home.
[2019-03-01 10:36] LABS: Appearance Pleural Fluid BLOODY; Basophils, Fluid 0 %; Color Pleural Fluid RED; Eosinophils, Fluid 7 %; Lymphocytes, Fluid 64 %; Mono,Macrophage,Mesothelial 11 %; Neutrophils, Fluid 18 %; RBC Pleural Fluid (A) 315000 /uL; Source Pleural Fluid LEFT LUNG; WBC Pleural Fluid (A) 1459 /uL
[2019-03-01] MEDS: FLUTICASONE/SALMETEROL 250/50 (ADVAIR) 14 PUFF/1 INHALER INH SCH ×2 (10:42→20:18)
[2019-03-01] MEDS: POTASSIUM CHLORIDE 20 MEQ TABCR PO SCH (10:43)
[2019-03-01] MEDS: CEROVITE ADV FORMULA TAB PO SCH (10:43)
[2019-03-01] MEDS: DASATINIB PO SCH ×2 (10:44→22:11)
[2019-03-01] MEDS: allopurinoL 300 MG TAB PO SCH (10:44)
[2019-03-01] MEDS: METOPROLOL SUCC 25MG EXT REL TAB PO SCH (10:45)
[2019-03-01] MEDS: INSULIN DETEMIR FLEXPEN/FLEX TOUCH 100 UNITS/ML 3ML SQ SCH ×2 (10:46→20:19)
[2019-03-01] MEDS: TRAMADOL HCL 50 MG TABLET PO PRN ×2 (10:51→16:43)
--- NOTE | 2019-03-01 15:27 | Hospitalist Progress Note ---
Date of Service March 01, 2019 Assessment & Plan (1) Pleural effusion: Involving the left side and likely secondary to dasatinib therapy Minimal improvement with Lasix but persistent. Pulm following. Status post repeat thoracentesis of 900 mL Patient has been clinically better (2) Chronic respiratory failure: 2/2 COPD. Doing well on baseline supplemental oxygen Denies any acute shortness of breath (3) COPD (chronic obstructive pulmonary disease): chronic, stable. No wheezing and/or shortness of breath (4) Pulmonary embolism: h/o provoked PE after prolonged hospitalization in the setting of multiple infections and active cancer earlier this year. cont anticoagulation (heparin if subtherapeutic while coumadin on hold) We will restart heparin from tomorrow morning We will start Coumadin from today (5) Supratherapeutic INR: Hold coumadin and trend INR daily. INR is 1.1 today (6) ALL (acute lymphoblastic leukemia): Diagnosed in 04/2018, Follows with Dr Nix, Continue dasatinib (7) Hypertension: Uncontrolled and found to have been on lisinopril 10mg PO BID earlier in the year. Blood pressure seems to be stable (8) Anemia: Chronic anemia 2/2 chronic disease Hgb: 9.8. Baseline 8.7-10) -Monitor H&H which is stable (9) Diabetes mellitus: A1c: 5.4 on 01/07/19, glucose is at goal, Continue home Levemir and correction factor as needed. (10) CKD (chronic kidney disease), stage III: Cr: 1.09. Baseline: 1.0-1.3 -Monitor renal functions -Avoid nephrotoxic agents when possible -expect a small rise in creatinine with addition of ACEI. Will monitor -Creatinine tendon has been improving and is 1.39 as of 03/01 (11) DVT prophylaxis: Coumadin held -INR therapeutic Will start Coumadin from today and heparin from tomorrow morning Will need Lovenox bridging on discharge Full code Dispo-pending clinical improvement. Expect to home when medically stable. Subjective 03/01 The patient was seen and examined in telemetry unit She has been feeling a lot better following thoracentesis Complains to have some pain at the procedure site Her shortness of breath is much improved Review of Systems Review of Systems: All systems reviewed and are unremarkable except as noted below Respiratory: + cough; no dyspnea (At rest) Cardiovascular: no chest pain Musculoskeletal: No acute arthritis in any joints Physical Exam Physical Exam: Lying in bed comfortably Constitutional: well developed, well nourished and + obese; no acute distress and not ill appearing Eyes: PERRL, conjunctivae normal, anicteric sclerae ENMT: external ear and nose normal, oropharynx normal Neck: trachea midline, no thyromegaly Respiratory: normal respiratory effort; no respiratory distress Auscultation: + diminished lung sounds (Especially left lung) Cardiovascular: Rate/Rhythm: regular rate and regular rhythm Heart Sounds: no murmur Gastrointestinal (Abdomen): Inspection/Auscultation: abdomen normal to inspection; abdomen not distended Percussion/Palpation: abdomen soft Musculoskeletal: No acute arthritis in any joints Lymphatic: no cervical or axillary lymphadenopathy Results & Data Vital Signs (Past 12 Hours) Vital Signs Temp Pulse Pulse Resp BP BP Pulse Ox 03/01/19 09:29 76 16 133/63 100 03/01/19 09:24 76 16 132/62 100 03/01/19 09:19 76 16 130/59 L 100 03/01/19 09:14 80 16 126/64 100 03/01/19 09:09 79 16 128/57 L 100 03/01/19 09:04 79 16 148/60 H 100 03/01/19 09:02 79 16 148/60 H 100 03/01/19 08:57 80 16 137/36 L 100 03/01/19 08:52 76 16 144/71 H 100 03/01/19 08:47 76 13 140/80 99 03/01/19 08:42 77 15 134/66 100 03/01/19 08:37 74 14 142/64 H 100 03/01/19 08:32 76 12 146/61 H 100 03/01/19 08:27 78 16 128/74 100 03/01/19 08:22 78 14 130/53 L 100 03/01/19 08:08 79 16 130/53 L 95 03/01/19 07:00 36.8 C 78 18 129/69 94 Laboratory Results [facility] 03/01/19 06:09 Sodium 140 Potassium 4.0 Chloride 105 Carbon Dioxide 31 BUN 29 H Creatinine 1.39 H Glucose 86 Calcium 8.0 L Medications Administered Current Inpatient Medications Acetaminophen (Tylenol) 650 mg PO Q6H PRN PRN Reason: Pain or Fever Stop: 03/28/19 21:59 Last Admin: 02/28/19 18:10 Dose: 650 mg Documented by: Albuterol (Duoneb) 3 ml NEB BIDR PRN PRN Reason: SOB/wheezing Stop: 03/25/19 18:59 Last Admin: 02/28/19 20:59 Dose: 3 ml Documented by: Allopurinol (Zyloprim) 300 mg PO DAILY [facility] Stop: 03/26/19 08:59 Last Admin: 03/01/19 10:44 Dose: 300 mg Documented by: Atorvastatin Calcium (Lipitor) 40 mg PO PM [facility] Stop: 03/25/19 20:59 Last Admin: 02/28/19 20:45 Dose: 40 mg Documented by: Dasatinib (Sprycel) 1 ea PO BID [facility] Stop: 03/27/19 20:59 Last Admin: 03/01/19 10:44 Dose: 1 ea Documented by: Dextrose (Dextrose 50%) 25 - 50 ml IV UD PRN; Protocol PRN Reason: Hypoglycemia Protocol Stop: 03/25/19 17:38 Glucagon (Glucagen) 1 mg SQ UD PRN; Protocol PRN Reason: Hypoglycemia Protocol Stop: 03/25/19 17:38 Glucose (Glucose 40%) 15 - 30 gm PO UD PRN; Protocol PRN Reason: Hypoglycemia Protocol Stop: 03/25/19 17:38 Glucose (Dex4 Glucose) 4 - 8 tabs PO UD PRN; Protocol PRN Reason: Hypoglycemia Protocol Stop: 03/25/19 17:38 Heparin Sodium/Dextrose (Heparin Sodium/Dextrose) 25,000 units in 500 mls @ 22 mls/hr IV .[id number] [facility]; Protocol Stop: 03/29/19 19:14 Last Titration: 03/01/19 03:59 Dose: Infused Documented by: Insulin Aspart (Novolog Flexpen) 0 units SC ACHS [facility] Stop: 03/25/19 17:38 Last Admin: 03/01/19 12:38 Dose: Not Given Documented by: Insulin Detemir (Levemir Flextouch) 10 units SQ QPM [facility] Stop: 03/25/19 20:59 Last Admin: 02/28/19 20:44 Dose: 10 units Documented by: Insulin Detemir (Levemir Flextouch) 14 units SQ QAM [facility] Stop: 03/26/19 08:59 Last Admin: 03/01/19 10:46 Dose: 14 units Documented by: Lisinopril (Zestril) 10 mg PO QAM [facility] Stop: 03/26/19 16:59 Last Admin: 02/27/19 07:36 Dose: 10 mg Documented by: Lorazepam (Ativan) 0.5 mg SL BID PRN PRN Reason: Anxiety Stop: 03/25/19 17:38 Metoprolol Succinate (Toprol Xl) 25 mg PO DAILY [facility] Stop: 03/26/19 08:59 Last Admin: 03/01/19 10:45 Dose: 25 mg Documented by: Midazolam HCl (Versed) 2 mg IV ONCE PRN PRN Reason: Sedation Stop: 03/31/19 09:11 Last Admin: 03/01/19 09:19 Dose: 2 mg Documented by: Miscellaneous (Carbohydrates For Hypoglycemia) 15 - 30 gm PO UD PRN PRN Reason: Hypoglycemia Protocol Stop: 03/25/19 17:38 Multivitamins/Minerals (Multivitamin W/ Minerals Tab) 1 tab PO QAM [facility] Stop: 03/26/19 08:59 Last Admin: 03/01/19 10:43 Dose: 1 tab Documented by: Ondansetron HCl (Zofran) 4 mg IV Q8H PRN PRN Reason: n/v Stop: 03/30/19 07:59 Last Admin: 02/28/19 18:05 Dose: 4 mg Documented by: Potassium Chloride (Klor-Con M20) 20 meq PO DAILY [facility] Stop: 03/26/19 08:59 Last Admin: 03/01/19 10:43 Dose: 20 meq Documented by: Fluticasone/Salmeterol (Advair Diskus 250/50) 1 puffs INH BID [facility] Stop: 03/25/19 20:59 Last Admin: 03/01/19 10:42 Dose: 1 puffs Documented by: Tramadol HCl (Ultram) 50 mg PO Q6H PRN PRN Reason: Pain Stop: 03/25/19 17:38 Last Admin: 03/01/19 10:51 Dose: 50 mg Documented by: Trolamine Salicylate (Myoflex) 1 appln EXT TID PRN PRN Reason: marin, sore muscles Stop: 03/26/19 16:09 Last Admin: 02/25/19 20:16 Dose: 1 appln Documented by: (1) Pulmonary embolism Pulmonary embolism type: saddle Chronicity: unspecified Acute cor pulmonale presence: without acute cor pulmonale Qualified Code(s): I26.92 - Saddle embolus of pulmonary artery without acute cor pulmonale (2) Anemia Anemia type: unspecified type Qualified Code(s): D64.9 - Anemia, unspecified
[2019-03-01] MEDS: WARFARIN SOD 5 MG TAB PO SCH (16:44)
[2019-03-01] MEDS ORDERED: HYDROmorphone INJ 0.5 MG/0.5 ML SYR IV PRN (17:05)
[2019-03-01] MEDS: TROLAMINE SALICYLATE 10% CRM 255 APPLN/85 GM TUBE EXT PRN (19:49)
[2019-03-01] MEDS: ATORVASTATIN 40 MG TAB PO SCH (20:20)
[2019-03-01 21:09] LABS: Basophils # (auto) 0.02 K/uL (0-0.2); Basophils % (auto) 0.3 %; Eosinophils # (auto) 0.24 K/uL (0-0.5); Eosinophils % (auto) 3.3 %; Hematocrit (blood only) 34.9 % (37-47); Hemoglobin 10.7 g/dL (12.0-16.0); Immature Granulocytes # (auto) 0.01 K/uL (0.00-0.02); Immature Granulocytes % (auto) 0.1 %; Lymphocytes % (auto) 16.3 %; Mean Corpuscular Hemoglobin 30.9 pg (25-34); Mean Corpuscular Hgb Conc 30.7 g/dL (32-36); Mean Corpuscular Volume 100.9 fL (80-100); Mean Platelet Volume 9.3 fL (7.4-10.4); Monocytes % (auto) 8.1 %; Neutrophils % (auto) 71.9 %; Platelet Count 177 K/uL (130-400); RDW Coefficient of Variation 16.7 % (11.5-14.5); RDW Standard Deviation 61.7 fL (36.4-46.3); Red Blood Count 3.46 M/uL (4.2-5.4); White Blood Count 7.37 K/uL (4.8-10.8)
[2019-03-02] MEDS ORDERED: LORATADINE 10 MG TAB PO ONE (00:01)
[2019-03-02] MEDS: ENOXAPARIN 100 MG/1ML SYR SQ SCH ×2 (05:11→15:47)
[2019-03-02 06:47] LABS: Basophils # (auto) 0.02 K/uL (0-0.2); Basophils % (auto) 0.3 %; Eosinophils # (auto) 0.33 K/uL (0-0.5); Eosinophils % (auto) 5.7 %; Hematocrit (blood only) 33.4 % (37-47); Hemoglobin 10.3 g/dL (12.0-16.0); Immature Granulocytes # (auto) 0.01 K/uL (0.00-0.02); Immature Granulocytes % (auto) 0.2 %; Lymphocytes # (auto) 1.21 K/uL (1.2-3.4); Lymphocytes % (auto) 20.9 %; Mean Corpuscular Hemoglobin 31.2 pg (25-34); Mean Corpuscular Hgb Conc 30.8 g/dL (32-36); Mean Corpuscular Volume 101.2 fL (80-100); Mean Platelet Volume 9.1 fL (7.4-10.4); Monocytes % (auto) 8.7 %; Neutrophils # (auto) 3.71 K/uL (1.4-6.5); Neutrophils % (auto) 64.2 %; Platelet Count 163 K/uL (130-400); RDW Coefficient of Variation 16.7 % (11.5-14.5); RDW Standard Deviation 62.2 fL (36.4-46.3); White Blood Count 5.78 K/uL (4.8-10.8)
[2019-03-02 07:12] LABS: BUN Creatinine Ratio 17.7 (10-20); Calcium 8.7 mg/dl (8.5-10.1); Creatinine Clr Calc Pharmacy 42.6 ml/min; Est GFR (African American) 46.2; Est GFR (Non-African American) 39.8; Potassium 4.4 mmol/L (3.5-5.1)
[2019-03-02] MEDS: INSULIN ASPART 100 UNITS/ML 3 ML PEN SC SCH ×2 (07:54→12:16)
[2019-03-02] MEDS: INSULIN DETEMIR FLEXPEN/FLEX TOUCH 100 UNITS/ML 3ML SQ SCH (07:55)
[2019-03-02] MEDS: POTASSIUM CHLORIDE 20 MEQ TABCR PO SCH (07:56)
[2019-03-02] MEDS: CEROVITE ADV FORMULA TAB PO SCH (07:57)
[2019-03-02] MEDS: allopurinoL 300 MG TAB PO SCH (07:57)
[2019-03-02] MEDS: METOPROLOL SUCC 25MG EXT REL TAB PO SCH (07:57)
[2019-03-02] MEDS: DASATINIB PO SCH (07:58)
[2019-03-02] MEDS: FLUTICASONE/SALMETEROL 250/50 (ADVAIR) 14 PUFF/1 INHALER INH SCH (09:01)
--- NOTE | 2019-03-02 12:11 | Hospitalist Progress Note ---
Date of Service March 02, 2019 Assessment & Plan (1) Pleural effusion: Involving the left side and likely secondary to dasatinib therapy Minimal improvement with Lasix but persistent. Pulm following. Status post repeat thoracentesis of 900 mL Patient has been clinically better following paracentesis Denies any more shortness of breath at rest We will get 2 steps O2 saturation test before discharge (2) Chronic respiratory failure: 2/2 COPD. Doing well on baseline supplemental oxygen Denies any acute shortness of breath (3) COPD (chronic obstructive pulmonary disease): chronic, stable. No wheezing and/or shortness of breath (4) Pulmonary embolism: h/o provoked PE after prolonged hospitalization in the setting of multiple infections and active cancer earlier this year. cont anticoagulation (heparin if subtherapeutic while coumadin on hold) We will restart heparin from tomorrow morning We will start Coumadin from today Will need to take Coumadin and Lovenox until INR is therapeutic (5) Supratherapeutic INR: Hold coumadin and trend INR daily. INR is 1.1 today (6) ALL (acute lymphoblastic leukemia): Diagnosed in 04/2018, Follows with Dr Nix, Continue dasatinib (7) Hypertension: Uncontrolled and found to have been on lisinopril 10mg PO BID earlier in the year. Blood pressure seems to be stable (8) Anemia: Chronic anemia 2/2 chronic disease Hgb: 9.8. Baseline 8.7-10) -Monitor H&H which is stable (9) Diabetes mellitus: A1c: 5.4 on 01/07/19, glucose is at goal, Continue home Levemir and correction factor as needed. (10) CKD (chronic kidney disease), stage III: Cr: 1.09. Baseline: 1.0-1.3 -Monitor renal functions -Avoid nephrotoxic agents when possible -expect a small rise in creatinine with addition of ACEI. Will monitor -Creatinine tendon has been improving and is 1.39 as of 03/01 Creatinine has been improving patient's and it is 1.33 on 03/02 (11) DVT prophylaxis: Coumadin held -INR therapeutic Will start Coumadin from today and heparin from tomorrow morning Will need Lovenox bridging on discharge Full code Dispo-pending clinical improvement. Expect to home when medically stable. Subjective 03/01 The patient was seen and examined in telemetry unit She has been feeling a lot better following thoracentesis Complains to have some pain at the procedure site Her shortness of breath is much improved 03/02 The patient was seen and examined in medical telemetry unit She has been feeling a lot better Denies any more chest pain and breath at rest Has been getting physical therapy Likely to go home this afternoon following 2 steps O2 saturation test Review of Systems Review of Systems: All systems reviewed and are unremarkable except as noted below Respiratory: + cough; no dyspnea (At rest) Musculoskeletal: No acute arthritis in any joints Physical Exam Constitutional: well developed, well nourished and + obese; no acute distress and not ill appearing Eyes: PERRL, conjunctivae normal, anicteric sclerae ENMT: external ear and nose normal, oropharynx normal Neck: trachea midline, no thyromegaly Respiratory: normal respiratory effort; no respiratory distress Auscultation: + diminished lung sounds (Especially left lung) Cardiovascular: Rate/Rhythm: regular rate and regular rhythm Heart Sounds: no murmur Gastrointestinal (Abdomen): Inspection/Auscultation: abdomen normal to inspection; abdomen not distended Percussion/Palpation: abdomen soft Lymphatic: no cervical or axillary lymphadenopathy Results & Data Vital Signs (Past 12 Hours) Vital Signs Temp Pulse Resp BP Pulse Ox 03/02/19 09:02 36.8 C 78 20 131/63 93 Laboratory Results Short CBC 03/01/19 03/02/19 Range/Units 20:55 06:19 WBC 7.37 5.78 (4.8-10.8) K/uL Hgb 10.7 L 10.3 L (12.0-16.0) g/dL Hct 34.9 L 33.4 L (37-47) % Plt Count 177 163 (130-400) K/uL BMP 03/02/19 06:19 Sodium 141 Potassium 4.4 Chloride 107 Carbon Dioxide 30 BUN 24 H Creatinine 1.33 H Glucose 92 Calcium 8.7 Medications Administered Current Inpatient Medications Acetaminophen (Tylenol) 650 mg PO Q6H PRN PRN Reason: Pain or Fever Stop: 03/28/19 21:59 Last Admin: 02/28/19 18:10 Dose: 650 mg Documented by: Albuterol (Duoneb) 3 ml NEB BIDR PRN PRN Reason: SOB/wheezing Stop: 03/25/19 18:59 Last Admin: 02/28/19 20:59 Dose: 3 ml Documented by: Allopurinol (Zyloprim) 300 mg PO DAILY [facility] Stop: 03/26/19 08:59 Last Admin: 03/02/19 07:57 Dose: 300 mg Documented by: Atorvastatin Calcium (Lipitor) 40 mg PO PM [facility] Stop: 03/25/19 20:59 Last Admin: 03/01/19 20:20 Dose: 40 mg Documented by: Dasatinib (Sprycel) 1 ea PO BID [facility] Stop: 03/27/19 20:59 Last Admin: 03/02/19 07:58 Dose: 1 ea Documented by: Dextrose (Dextrose 50%) 25 - 50 ml IV UD PRN; Protocol PRN Reason: Hypoglycemia Protocol Stop: 03/25/19 17:38 Enoxaparin Sodium (Lovenox) 90 mg SQ Q12H [facility] Stop: 04/01/19 03:59 Last Admin: 03/02/19 05:11 Dose: 90 mg Documented by: Glucagon (Glucagen) 1 mg SQ UD PRN; Protocol PRN Reason: Hypoglycemia Protocol Stop: 03/25/19 17:38 Glucose (Glucose 40%) 15 - 30 gm PO UD PRN; Protocol PRN Reason: Hypoglycemia Protocol Stop: 03/25/19 17:38 Glucose (Dex4 Glucose) 4 - 8 tabs PO UD PRN; Protocol PRN Reason: Hypoglycemia Protocol Stop: 03/25/19 17:38 Hydromorphone HCl (Dilaudid) 0.5 mg IV Q4H PRN PRN Reason: Pain Stop: 03/15/19 17:04 Last Admin: 03/01/19 20:18 Dose: 0.5 mg Documented by: Insulin Aspart (Novolog Flexpen) 0 units SC ACHS [facility] Stop: 03/25/19 17:38 Last Admin: 03/02/19 07:54 Dose: Not Given Documented by: Insulin Detemir (Levemir Flextouch) 10 units SQ QPM [facility] Stop: 03/25/19 20:59 Last Admin: 03/01/19 20:19 Dose: 10 units Documented by: Insulin Detemir (Levemir Flextouch) 14 units SQ QAM [facility] Stop: 03/26/19 08:59 Last Admin: 03/02/19 07:55 Dose: 14 units Documented by: Lisinopril (Zestril) 10 mg PO QAM [facility] Stop: 03/26/19 16:59 Last Admin: 02/27/19 07:36 Dose: 10 mg Documented by: Lorazepam (Ativan) 0.5 mg SL BID PRN PRN Reason: Anxiety Stop: 03/25/19 17:38 Metoprolol Succinate (Toprol Xl) 25 mg PO DAILY [facility] Stop: 03/26/19 08:59 Last Admin: 03/02/19 07:57 Dose: 25 mg Documented by: Midazolam HCl (Versed) 2 mg IV ONCE PRN PRN Reason: Sedation Stop: 03/31/19 09:11 Last Admin: 03/01/19 09:19 Dose: 2 mg Documented by: Miscellaneous (Carbohydrates For Hypoglycemia) 15 - 30 gm PO UD PRN PRN Reason: Hypoglycemia Protocol Stop: 03/25/19 17:38 Multivitamins/Minerals (Multivitamin W/ Minerals Tab) 1 tab PO QAM [facility] Stop: 03/26/19 08:59 Last Admin: 03/02/19 07:57 Dose: 1 tab Documented by: Ondansetron HCl (Zofran) 4 mg IV Q8H PRN PRN Reason: n/v Stop: 03/30/19 07:59 Last Admin: 02/28/19 18:05 Dose: 4 mg Documented by: Potassium Chloride (Klor-Con M20) 20 meq PO DAILY [facility] Stop: 03/26/19 08:59 Last Admin: 03/02/19 07:56 Dose: 20 meq Documented by: Fluticasone/Salmeterol (Advair Diskus 250/50) 1 puffs INH BID [facility] Stop: 03/25/19 20:59 Last Admin: 03/02/19 09:01 Dose: 1 puffs Documented by: Tramadol HCl (Ultram) 50 mg PO Q6H PRN PRN Reason: Pain Stop: 03/25/19 17:38 Last Admin: 03/01/19 16:43 Dose: 50 mg Documented by: Trolamine Salicylate (Myoflex) 1 appln EXT TID PRN PRN Reason: marin, sore muscles Stop: 03/26/19 16:09 Last Admin: 03/01/19 19:49 Dose: 1 appln Documented by: Warfarin Sodium (Coumadin) 5 mg PO DAILY@1600 [facility] Stop: 03/31/19 15:59 Last Admin: 03/01/19 16:44 Dose: 5 mg Documented by: (1) Pulmonary embolism Pulmonary embolism type: saddle Chronicity: unspecified Acute cor pulmonale presence: without acute cor pulmonale Qualified Code(s): I26.92 - Saddle embolus of pulmonary artery without acute cor pulmonale (2) Anemia Anemia type: unspecified type Qualified Code(s): D64.9 - Anemia, unspecified
[2019-03-02 12:51] LABS: INR 1.1 (0.9-1.1); Prothrombin Time 10.9 Seconds (9.0-12.0)
[2019-03-02] MEDS ORDERED: CALCIUM CARBONATE 500 MG CHEWABLE TAB PO PRN (12:58)
--- NOTE | 2019-03-02 13:05 | Pulmonology Progress Note ---
Date of Service March 02, 2019 Assessment & Plan (1) Pleural effusion: Pleural effusion likely secondary to Dasatinib. Discussed with Dr. Nix of oncology who agrees. Drained 900 ml of sanguinous fluid yesterday. Likely hemorrhagic due to prior thora attempt 2 days before and then being started on heparin. No drop in hgb. Second tap also consistent with lymphocytic effusion. Notably eosinophils present as well likely due to blood in the pleural space. Recommend repeat CXR in 4 weeks to determine if there is reaccumulation of fluid. Lastly, first pleural fluid specimen did grow coag neg staph which is likely a contaminant. No need for treatment. Pulm will sign off. She needs follow up with us in 4 weeks with cxr. Thanks for the consult. Please call with questions. (2) Acute and chronic respiratory failure with hypoxia: (3) Supratherapeutic INR: (4) Pulmonary embolism: Acute cor pulmonale presence: without acute cor pulmonale Chronicity: unspecified Pulmonary embolism type: saddle Qualified Code(s): I26.92 - Saddle embolus of pulmonary artery without acute cor pulmonale (5) Moderate COPD (chronic obstructive pulmonary disease): (6) MARCO (obstructive sleep apnea): Subjective Patient continues to do well. Feels noticeably less dyspneic s/p thora. No cough, fevers or chills. Minimal chest pain at thora site. Ambulating ok. Physical Exam Constitutional: WD/WN, vitals as above Eyes: PERRL, conjunctivae normal, anicteric sclerae ENMT: Mallampati Class: II Neck: normal visual inspection Respiratory: normal respiratory effort, lungs clear to auscultation Cardiovascular: RRR, no murmur, no edema Gastrointestinal (Abdomen): normal bowel sounds, soft, nontender, no hepatosplenomegaly Musculoskeletal: no cyanosis or clubbing, extremities motor strength 5/5 Skin: no rashes, warm and dry Neurologic: PERRL, EOMI, accommodation nl, no face palsy, no dysarthria Psychiatric: A+Ox3, euthymic affect Results & Data Vital Signs (Past 12 Hours) Vital Signs Temp Pulse Resp BP Pulse Ox 03/02/19 09:02 98.2 F 78 20 131/63 93 PG Care Time/CCT Total # of Minutes Spent Total Time Spent with Patient: Total time spent is greater than 50% in coordination of care (as documented) at patient's floor/unit and/or counseling patient:
[2019-03-02] MEDS: WARFARIN SOD 5 MG TAB PO SCH (15:47)
--- NOTE | 2019-03-03 07:31 | Discharge Summary ---
Date of Service March 03, 2019 Admission HPI Per Admitting Provider Pt is 73 y/o F with PMH ALL diagnosed in 04/2018, PE Dx in 05/2018 on Coumadin, COPD, chronic respiratory failure on 3L oxygen, insulin dependent DM, chronic BLE edema, CKD III, chronic anemia, HTN, dyslipidemia presented to ER with c/o increased SOB. Patient reports increased shortness of breath for approximately 2 weeks. Worse with exertion. Has noticed increased lower extremity edema for the past 1.5 weeks. Patient admits to not taking her Bumex for the past 4 weeks because she is tired of getting up to urinate. Today was seen by [facility] and had noted increased extremity edema and pt was given her Bumex 1mg today. Patient reports cough for the past 2 weeks. Sometimes cough productive yellow sputum. Reports 3 days ago had red blood mixed in sputum after coughing. No further hemoptysis. Usually uses her DuoNeb twice a day however yesterday required using it 3 times. Unsure if that helped much with SOB. Denies noted wheezing. Denies CP, fever/chills, diaphoresis, N/V/D/C, SAUL, dizziness, syncope, vision changes, neck pain, orthopnea, palpitations, sore throat, choking, otalgia, rhinorrhea, abdominal pain, paresthesias, weakness, rashes, urinary symptoms. Admission Exam Per Admitting Provider Physical Exam: General: no acute distress on 3L oxygen nasal cannula, obese Head: normocephalic, atraumatic Eyes: PERRL, EOM's intact, conjunctiva non-injected, anicteric ENT: normal inspection external ears, nose, mucous membranes moist Neck: supple, trachea midline Lungs: R:20, 96% on 3L oxygen NC, no retractions, Left mid and lower lung with decreased breath sounds, RLL with rhonchi CV: RRR, no murmur, 1+ bilateral pretibial edema Abd: normal BS, soft, non-tender Ext: no cyanosis, no calf tenderness; no erythema Neuro: A&O x 3, no focal deficits noted, normal affect Skin: warm, dry Principal Diagnosis Left pleural effusion likely secondary to dasatinib therapy, status post thoracentesis, chronic respiratory failure secondary to COPD, pulmonary embolism on anticoagulation, 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 Discharge Exam Constitutional well developed, well nourished and + obese; no acute distress and not ill appearing Eyes PERRL, conjunctivae normal, anicteric sclerae ENMT external ear and nose normal, oropharynx normal Neck trachea midline, no thyromegaly Respiratory normal respiratory effort; no respiratory distress Auscultation: + diminished lung sounds (Especially left lung) Cardiovascular Rate/Rhythm: regular rate and regular rhythm Heart Sounds: no murmur Gastrointestinal (Abdomen) Inspection/Auscultation: abdomen normal to inspection; abdomen not distended Percussion/Palpation: abdomen soft Lymphatic no cervical or axillary lymphadenopathy Discharge Data Allergies Allergy/AdvReac Type Severity Reaction Status Date / Time No Known Allergies Allergy Verified 02/23/19 13:22 Consultations 02/23/19 13:34 ED Decision to Admit Stat 02/23/19 17:39 Consult Case Management - Discharge Planning Routine Consult Pulmonology Routine 02/24/19 13:41 Consult Infectious Diseases Routine Procedures Performed Operation Date: 03/01/19 08:00 Actual Procedures p Thoracentesis(Left) - Riccardo Mancera MD Ordered Studies 02/27/19 10:16 US point of care ultrasound Routine 02/27/19 16:04 CT chest wo con Routine 03/01/19 08:02 US point of care ultrasound Routine Hospital Course (1) Pleural effusion: Involving the left side and likely secondary to dasatinib therapy Minimal improvement with Lasix but persistent. Pulm following. Status post repeat thoracentesis of 900 mL Patient has been clinically better following paracentesis Denies any more shortness of breath at rest We will get 2 steps O2 saturation test before discharge (2) Chronic respiratory failure: 2/2 COPD. Doing well on baseline supplemental oxygen Denies any acute shortness of breath (3) COPD (chronic obstructive pulmonary disease): chronic, stable. No wheezing and/or shortness of breath (4) Pulmonary embolism: h/o provoked PE after prolonged hospitalization in the setting of multiple infections and active cancer earlier this year. cont anticoagulation (heparin if subtherapeutic while coumadin on hold) We will restart heparin from tomorrow morning We will start Coumadin from today Will need to take Coumadin and Lovenox until INR is therapeutic (5) Supratherapeutic INR: Hold coumadin and trend INR daily. INR is 1.1 today (6) ALL (acute lymphoblastic leukemia): Diagnosed in 04/2018, Follows with Dr Nix, Continue dasatinib (7) Hypertension: Uncontrolled and found to have been on lisinopril 10mg PO BID earlier in the year. Blood pressure seems to be stable (8) Anemia: Chronic anemia 2/2 chronic disease Hgb: 9.8. Baseline 8.7-10) -Monitor H&H which is stable (9) Diabetes mellitus: A1c: 5.4 on 01/07/19, glucose is at goal, Continue home Levemir and correction factor as needed. (10) CKD (chronic kidney disease), stage III: Cr: 1.09. Baseline: 1.0-1.3 -Monitor renal functions -Avoid nephrotoxic agents when possible -expect a small rise in creatinine with addition of ACEI. Will monitor -Creatinine tendon has been improving and is 1.39 as of 03/01 Creatinine has been improving patient's and it is 1.33 on 03/02 (11) DVT prophylaxis: Coumadin held -INR therapeutic Will start Coumadin from today and heparin from tomorrow morning Will need Lovenox bridging on discharge Full code Dispo-pending clinical improvement. Expect to home when medically stable. 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 Gr. Coagulation clinic notified and will need to have INR checked on Tuesday and decide 1 use of Lovenox) Diet: Carb Consistent or DM2 Addtl Attending Provider Instructions: Please take precaution to avoid falls Lovenox and Coumadin should be continued until INR is therapeutic and then stop Lovenox Pending Studies at Discharge: No Stand-Alone Forms: My [facility], Smoking Cessation Medications and DC Order Prescriptions: New lisinopril 10 mg Tablet 10 mg PO QAM 30 Days Qty: 30 RF: 0 enoxaparin 100 mg/mL Syringe 90 mg subcut Q12H 3 Days Qty: 6 RF: 0 Continued fluticasone propion-salmeterol [Advair Diskus] 250-50 mcg/dose Blister With Device 1 inh INHALATION BID RF: 0 tramadol 50 mg Tablet 50 mg PO Q6H PRN (Reason: Pain) RF: 0 allopurinol 300 mg Tablet 300 mg PO DAILY RF: 0 Levemir FlexTouch U-100 Insuln 100 unit/mL (3 mL) Insulin Pen 10 units SUBCUT QPM RF: 0 Women's Multivitamin 18 mg iron-400 mcg-500 mg Tablet 1 tab PO QAM RF: 0 Sprycel 70 mg Tablet 70 mg PO BID RF: 0 albuterol sulfate 90 mcg/actuation Hfa Aerosol Inhaler 2 puff INHALATION Q6H PRN (Reason: Shortness Of Breath) RF: 0 acetaminophen [Mapap (acetaminophen)] 325 mg Tablet 650 mg PO Q4H PRN (Reason: fever or pain) Qty: 100 RF: 0 warfarin [Coumadin] 5 mg tablet 5 mg PO QAM RF: 0 ipratropium-albuterol 0.5 mg-3 mg(2.5 mg base)/3 mL Solution For Nebulization 3 ml INHALATION BID RF: 0 lorazepam 0.5 mg Tablet 0.5 mg SUBLINGUAL BID PRN (Reason: Anxiety) RF: 0 metoprolol succinate 25 mg Tablet Extended Release 24 Hr 25 mg PO DAILY RF: 0 atorvastatin 40 mg Tablet 40 mg PO PM RF: 0 ipratropium-albuterol 0.5 mg-3 mg(2.5 mg base)/3 mL Solution For Nebulization 3 ml inhalation QID PRN (Reason: Shortness Of Breath Or Wheezing) RF: 0 bumetanide 1 mg Tablet 1 mg PO DAILY RF: 0 Levemir FlexTouch U-100 Insuln 100 unit/mL (3 mL) Insulin Pen 14 unit subcut QAM RF: 0 potassium chloride 20 mEq Tablet Extended Release 20 meq PO DAILY RF: 0 Discharge Orders: Discharge Order (Routine); Ordered 03/02/19 Ordered By: Manabendra Alyson Admission Data Admit Date/Time: 02/23/19 14:52 Attending Provider: Munir Shields Admit Provider: Nicholas Aguilera Primary Care Provider: Natalia Brambila Other Providers: Nicholas Aguilera ; Antonio Guillaume ; Marissa Woodward ; [facility] ; Angy Fontaine Other Interventions: Discharge Summary Assessment (RN) Last Done: 03/02/19 15:34 DC Date/Time DO NOT enter until pt leaves facility: 03/02/19 14:24
== END 2019-03-02 14:24 | disposition home health service (06) | DRG 187 ==
LOC: ED 11:30 → 2W 14:52 → SUATTDRO 14:52 → 2W 17:15

== ENCOUNTER 2020-05-28 14:46 | Inpatient (IN) ==
[2020-05-28] MEDS ORDERED: DEXAMETHASONE SOD INJ 10 MG/ML VIAL IV ONE (14:53)
--- NOTE | 2020-05-28 15:18 | XRay Report ---
XR chest 1V portable CLINICAL HISTORY: SEPSIS COMPARISON STUDY: Chest CT March 09, 2019. Chest radiograph March 01, 2019. FINDINGS: There is no pneumothorax. Moderate pulmonary edema is noted. There are moderate bilateral p leural effusions with bibasilar opacities. Cardiomegaly is noted. IMPRESSION: 1. Moderate pulmonary edema. 2. Moderate bilateral pleural effusions with bibasilar opacities that could reflect atelectasis or co nsolidation. Radiographic follow-up is recommended. ACT 112: Negative or not required by law. Electronically signed by: Layton Brady M.D. 05/28/2020 3:17 PM
[2020-05-28 15:24] LABS: Basophils # (auto) 0.03 K/uL (0-0.2); Basophils % (auto) 0.5 %; Eosinophils # (auto) 0.17 K/uL (0-0.5); Eosinophils % (auto) 2.6 %; Hematocrit (blood only) 36.4 % (37-47); Hemoglobin 11.5 g/dL (12.0-16.0); Immature Granulocytes # (auto) 0.01 K/uL (0.00-0.02); Immature Granulocytes % (auto) 0.2 %; Lymphocytes # (auto) 0.88 K/uL (1.2-3.4); Lymphocytes % (auto) 13.2 %; Mean Corpuscular Hemoglobin 29.8 pg (25-34); Mean Corpuscular Hgb Conc 31.6 g/dL (32-36); Mean Corpuscular Volume 94.3 fL (80-100); Mean Platelet Volume 8.9 fL (7.4-10.4); Monocytes # (auto) 0.17 K/uL (0.11-0.59); Monocytes % (auto) 2.6 %; Neutrophils # (auto) 5.39 K/uL (1.4-6.5); Neutrophils % (auto) 80.9 %; Platelet Count 234 K/uL (130-400); RDW Coefficient of Variation 16.1 % (11.5-14.5); RDW Standard Deviation 55.7 fL (36.4-46.3); Red Blood Count 3.86 M/uL (4.2-5.4); White Blood Count 6.65 K/uL (4.8-10.8)
[2020-05-28 15:40] LABS: INR 2.8 (0.9-1.1); Partial Thromboplastin Ratio 1.5; Partial Thromboplastin Time 40.4 Seconds (21.0-31.0); Prothrombin Time 26.6 Seconds (9.0-12.0)
[2020-05-28 15:41] LABS: Albumin Level 3.2 gm/dl (3.4-5.0); BUN Creatinine Ratio 14.4 (10-20); Calcium 8.5 mg/dl (8.5-10.1); Creatinine Clr Calc Pharmacy 39.1 ml/min; Est GFR (African American) 42.4; Est GFR (Non-African American) 36.5; Magnesium 2.1 mg/dl (1.8-2.4); Potassium 3.5 mmol/L (3.5-5.1)
--- NOTE | 2020-05-28 15:48 | Emergency Department Note ---
Impression & Plan Acute respiratory distress, Pleural effusion, Hypoxia ED Provider Note NAME: LU LE AGE: 74 SEX: F : 1945 ARRIVES VIA: Ambulance INFORMANT: Patient, prehospital personnel ED PROVIDER(S): Raphael Trejo DO CHIEF COMPLAINT: Shortness of breath HPI: The patient is a 74-year-old female who presented to the emergency dep artment by ambulance for an evaluation of shortness of breath. The patient has a history of COPD. The patient has a history of COPD. She denies having any nausea or vomiting. She did not have a fever but she does have a productive cough. She does not have any exposure to COVID-19. She did not have any chest pain or lower extremity swelling. She does complain of some orthopnea as well as shortness of breath when exerting herself. She received a breathing treatment prior to arrival. The patient has been taking her home nebulizers over the last 3 days almost constantly. She normally wears 3 L of nasal cannula. She was noted to have oxygen saturation in the 60s prior to arrival. She was placed on supplemental oxygen with a mask and had significant improvement of her symptoms. She was not seen by her primary care physician for the symptoms. She states her symptoms are significantly improved at this time. ROS: See above HPI for pertinent positives & negatives. A total of 10 systems reviewed and were otherwise negative. PAST MEDICAL HISTORY: See Below PAST SURGICAL HISTORY: See Below FAMILY HISTORY: See Below SOCIAL HISTORY: See Below HOME MEDICATIONS: See Below ALLERGIES: See Below VITALS: See Below PHYSICAL EXAMINATION: GENERAL: The patient is awake and alert. The patient is very anxious appearing. EYES: The conjunctivae are clear. The pupils are round and reactive. EARS, NOSE, MOUTH AND THROAT: The nose is without any evidence of any deformity. Mucous membranes are moist. Tongue is midline. NECK: The neck is nontender and supple. RESPIRATORY: Shallow respirations were noted. There were diminished breath sounds noted throughout with rales in all lung mercado. There were significant conversational dyspnea appreciated. CARDIOVASCULAR: Regular rate and rhythm noted there no murmurs rubs or gallops normal S1 normal S2. GASTROINTESTINAL: The abdomen is soft. Abdomen is nontender. MUSCULOSKELETAL/EXTREMITIES: There is no evidence of gross deformity full range of motion is noted in the hips and shoulders. SKIN: Mild pedal edema was noted bilaterally. NEUROLOGIC: Patient is awake alert and oriented x3. MEDICAL DECISION MAKING: The patient is a 74-year-old female who presented to the emergency department for an evaluation of difficulty breathing. According to the prehospital pe rsonnel the patient had very significant hypoxia prior to arrival. She was placed on nonrebreather but then moved to BiPAP when she arrived in our emergency department. She tolerated this quite well and her oxygenation improved significantly. I discussed the patient's laboratory and radiographic studies with her. She was found to have bilateral pleural effusions which does help explain her physical exam findings. I am unsure the significance of these findings at this time. She may require further work-up. I discussed the patient's condition with the on-call [facility] group. They have agreed to evaluate the patient in the emergency department for further management and disposition. Triage Nursing notes reviewed. Prior medical records reviewed Vital Signs: reviewed and remarkable for hypoxia Differential diagnosis: Reactive airway disease, pneumonia, pneumothorax, COPD, CHF, infections, cardiac ischemia, pulmonary embolism, musculoskeletal, gastrointestinal, as well as other pathologies. ER treatment provided: See below Diagnostics interpreted by me: ECG: EKG was obtained in the emergency department. My interpretation is normal sinus rhythm at 88 bpm. There was no ectopy. Low lateral ST segment abnormalities were noted. This was compared to a tracing from February [id number]. No significant changes were noted. Cardiac Monitoring: An order was placed for continuous cardiac monitoring. The monitor shows a rate of 95 bpm with sinus rhythm. Laboratory studies: As stated above and show below. Imaging studies: See below Consultation(s): 1600: I discussed this case with Katerin who is on-call for the [facility] group. They will evaluate the patient in the emergency department. ED COURSE: Procedures: none PDMP:reviewed and no issues Critical Care: I have personally spent greater than 45 minutes of critical care time in the direct management of this patient. This includes bedside care, interpretation of diagnostic studies, and testing, discussion with consultants, patient, and family members, and other required patient management activities. This 45 minut es is in excess of all separately billable procedures. Past Med/Surg History Medical History (Updated 05/28/20 @ 20:18 by Raphael Trejo DO) Acute hypoxemic respiratory failure ALL (acute lymphoblastic leukemia) Bacteremia Chronic respiratory failure CKD (chronic kidney disease), stage III COPD (chronic obstructive pulmonary disease) Depression Diabetes mellitus Diabetes mellitus, type II DM type 2 (diabetes mellitus, type 2) Dyslipidemia EKG abnormalities GERD (gastroesophageal reflux disease) GERD (gastroesophageal reflux disease) Hypertension Leg edema Lumbar disc disease Moderate COPD (chronic obstructive pulmonary disease) MRSA (methicillin resistant Staphylococcus aureus) septicemia Mucoid impaction of bronchi Nocturnal hypoxia Osteoarthritis Ovarian cyst Pulmonary embolism Secondary hyperparathyroidism Splenomegaly Tobacco use Surgical History H/O tubal ligation History of cholecystectomy Family History Denies family history of Coronary heart disease Social History Smoking Status: Former smoker Tobacco Type: Cigarettes Hx Alcohol Use: No Hx Substance Use: No Preferred Language: Ukrainian Communication Ability: Effective Visual Impairment: No Limitations Hearing Ability: Normal 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 Beliefs That Will Affect Care: None marital status: / Current Living Situation: Alone Current Living Situation Comment: House Other Information That Helps Us Care for You: No Feels Safe at Home: Yes Safety Concerns: Feels Safe At This Time Assistive Devices: Walker Allergies Allergies Allergy/AdvReac Type Severity Reaction Status Date / Time No Known Allergies Allergy Verified 05/28/20 17:13 Home Meds Home Medications Medication Instructions Recorded Confirmed tramadol 50 mg PO Q6H PRN 04/05/18 05/28/20 Levemir FlexTouch U-100 Insuln 6 units SUBCUT QPM 06/09/18 05/28/20 Sprycel 70 mg PO BID 06/12/18 05/28/20 Levemir FlexTouch U-100 Insuln 14 unit SUBCUT QAM 02/23/19 05/28/20 atorvastatin 40 mg PO PM 02/23/19 05/28/20 bumetanide 1 mg PO DAILY 02/23/19 05/28/20 ipratropium-albuterol 3 ml INHALATION BID 02/23/19 05/28/20 lorazepam 0.5 mg SUBLINGUAL BID PRN 02/23/19 05/28/20 metoprolol succinate 25 mg PO DAILY 02/23/19 05/28/20 potassium chloride 20 meq PO DAILY 02/23/19 05/28/20 Lactobacillus acidophilus 10,000 mmu cells PO DAILY 05/28/20 05/28/20 [Probiotic] amlodipine 10 mg PO DAILY 05/28/20 05/28/20 cyanocobalamin (vitamin B-12) 100 mcg PO DAILY 05/28/20 05/28/20 fluticasone propion-salmeterol 1 inh INHALATION BID 05/28/20 05/28/20 [Wixela Inhub] folic acid 1 mg PO DAILY 05/28/20 05/28/20 omeprazole 20 mg PO BID 05/28/20 05/28/20 warfarin 5 mg PO DIRECTED 05/28/20 05/28/20 Previous Rx's Medication Instructions Recorded acetaminophen [Mapap 650 mg PO Q4H PRN #100 tab 07/03/18 (acetaminophen)] Results & Data (ED) Vital Signs Vital Signs - 24 hr 05/28/20 14:53 05/28/20 14:55 05/28/20 15:00 Temperature 37.0 C Temperature Source Oral Pulse Rate 88 86 89 Pulse Rate from SpO2 Sensor 88 88 Respiratory Rate 24 40 H 25 H Respiratory Effort / Characteristics Spontaneous Accessory Muscle Use Labored Respiratory Depth Respiratory Pattern Gasping Rapid/Shallow Tachypnea Blood Pressure 179/66 H 176/66 H 176/67 H Blood Pressure Mean 103 102 103 Pulse Oximetry 98 98 99 Oxygen Delivery Method BiPAP Ambu-Bag BiPAP Oxygen Flow Rate 15 15 Fraction of Inspired Oxygen 50 SaO2/FiO2 Ratio 192 Sepsis Recent Fever Within 48 Hours No Sepsis New/Unexplained Change in Mental Status N/A Sepsis Action Taken by Nursing No Action Required 05/28/20 15:01 05/28/20 15:05 05/28/20 15:30 Temperature Temperature Source Pulse Rate 60 Pulse Rate from SpO2 Sensor 84 Respiratory Rate 26 H 23 Respiratory Effort / Characteristics Spontaneous Labored Short of Breath Spontaneous Respiratory Depth Retractive Respiratory Pattern Tachypnea Blood Pressure 160/61 H Blood Pressure Mean 94 Pulse Oximetry 96 95 Oxygen Delivery Method BiPAP Oxygen Flow Rate Fraction of Inspired Oxygen 50 SaO2/FiO2 Ratio Sepsis Recent Fever Within 48 Hours Sepsis New/Unexplained Change in Mental Status Sepsis Action Taken by Nursing 05/28/20 16:00 05/28/20 16:30 Temperature Temperature Source Pulse Rate 91 H Pulse Rate from SpO2 Sensor 92 H 86 Respiratory Rate 26 H 24 Respiratory Effort / Characteristics Respiratory Depth Respiratory Pattern Blood Pressure 175/78 H 156/66 H Blood Pressure Mean 110 96 Pulse Oximetry 96 95 Oxygen Delivery Method BiPAP BiPAP Oxygen Flow Rate Fraction of Inspired Oxygen SaO2/FiO2 Ratio Sepsis Recent Fever Within 48 Hours Sepsis New/Unexplained Change in Mental Status Sepsis Action Taken by [facility] Medications Current Medication List: was personally reviewed by me Laboratory Data Attestation: I reviewed the patient's lab results. Result diagrams: 05/28/20 15:11 05/28/20 15:11 Lab Results 05/28/20 05/28/20 05/28/20 Range/Units 15:11 15:11 15:11 WBC 6.65 (4.8-10.8) K/uL RBC 3.86 L (4.2-5.4) M/uL Hgb 11.5 L (12.0-16.0) g/dL Hct 36.4 L (37-47) % MCV 94.3 (80-100) fL MCH 29.8 (25-34) pg MCHC 31.6 L (32-36) g/dL RDW Std Deviation 55.7 H (36.4-46.3) fL RDW Coeff of Yariel 16.1 H (11.5-14.5) % Plt Count 234 (130-400) K/uL MPV 8.9 (7.4-10.4) fL Immature Gran % (Auto) 0.2 % Neut % (Auto) 80.9 % Lymph % (Auto) 13.2 % Dent % (Auto) 2.6 % Eos % (Auto) 2.6 % Baso % (Auto) 0.5 % Neut # (Auto) 5.39 (1.4-6.5) K/uL Lymph # (Auto) 0.88 L (1.2-3.4) K/uL Dent # (Auto) 0.17 (0.11-0.59) K/uL Eos # (Auto) 0.17 (0-0.5) K/uL Baso # (Auto) 0.03 (0-0.2) K/uL Immature Gran # (Auto) 0.01 (0.00-0.02) K/uL PT 26.6 H (9.0-12.0) Seconds INR 2.8 H (0.9-1.1) APTT 40.4 H (21.0-31.0) Seconds PTT Ratio 1.5 VBG pH (7.36-7.41) VBG pCO2 (38-50) mmHg VBG pO2 mmHg VBG HCO3 mmol/L VBG O2 Saturation % VBG Base Excess mEq/L Barometric Pressure mm/Hg Sodium 145 (136-145) mmol/L Potassium 3.5 (3.5-5.1) mmol/L Chloride 109 H (98-107) mmol/L Carbon Dioxide 33 H (21-32) mmol/L Anion Gap 3.0 (3-11) BUN 20 H (7-18) mg/dl Creatinine 1.42 H (0.6-1.2) mg/dl Est Cr Clr Drug Dosing 39.1 ml/min Est GFR ( Amer) 42.4 Est GFR (Non-Af Amer) 36.5 BUN/Creatinine Ratio 14.4 (10-20) Glucose 131 H (70-99) mg/dl Lactate (0.4-2.0) mmol/L Calcium 8.5 (8.5-10.1) mg/dl Magnesium 2.1 (1.8-2.4) mg/dl Total Bilirubin 0.3 (0.2-1) mg/dl AST 34 (15-37) U/L ALT 28 (12-78) U/L Alkaline Phosphatase 95 (45-117) U/L Troponin I 0.053 H* (0-0.045) ng/ml NT-Pro-B Natriuret Pep 672 (0-900) pg/ml Total Protein 6.7 (6.4-8.2) gm/dl Albumin 3.2 L (3.4-5.0) gm/dl Globulin 3.5 (2.5-4.0) gm/dl Albumin/Globulin Ratio 0.9 (0.9-2) Procalcitonin (0-0.5) ng/ml Urine Color Urine Appearance (Clear) Urine pH (4.5-7.5) Ur Specific Lincoln (1.000-1.030) Urine Protein (Negative) Urine Glucose (UA) (Negative) Urine Ketones (Negative) Urine Blood (Negative) Urine Nitrite (Negative) Urine Bilirubin (Negative) Urine Urobilinogen (Negative) Ur Leukocyte Esterase (Negative) Urine WBC (Auto) (0-5) /hpf Urine RBC (Auto) (0-4) /hpf U Hyaline Cast (Auto) (0-5) /lpf U Epithel Cells (Auto) (0-5) /lpf Urine Bacteria (Auto) (Negative) Ur Renal Epithelial Cell COVID-19 Eval Order SARS-CoV-2 (PCR) (Negative) Influenza Type A (PCR) (Neg) Influenza Type B (PCR) (Neg) RSV (RT-PCR) (Neg) 05/28/20 05/28/20 05/28/20 Range/Units 15:11 15:11 15:14 WBC (4.8-10.8) K/uL RBC (4.2-5.4) M/uL Hgb (12.0-16.0) g/dL Hct (37-47) % MCV (80-100) fL MCH (25-34) pg MCHC (32-36) g/dL RDW Std Deviation (36.4-46.3) fL RDW Coeff of Yariel (11.5-14.5) % Plt Count (130-400) K/uL MPV (7.4-10.4) fL Immature Gran % (Auto) % Neut % (Auto) % Lymph % (Auto) % Dent % (Auto) % Eos % (Auto) % Baso % (Auto) % Neut # (Auto) (1.4-6.5) K/uL Lymph # (Auto) (1.2-3.4) K/uL Dent # (Auto) (0.11-0.59) K/uL Eos # (Auto) (0-0.5) K/uL Baso # (Auto) (0-0.2) K/uL Immature Gran # (Auto) (0.00-0.02) K/uL PT (9.0-12.0) Seconds INR (0.9-1.1) APTT (21.0-31.0) Seconds PTT Ratio VBG pH (7.36-7.41) VBG pCO2 (38-50) mmHg VBG pO2 mmHg VBG HCO3 mmol/L VBG O2 Saturation % VBG Base Excess mEq/L Barometric Pressure mm/Hg Sodium (136-145) mmol/L Potassium (3.5-5.1) mmol/L Chloride (98-107) mmol/L Carbon Dioxide (21-32) mmol/L Anion Gap (3-11) BUN (7-18) mg/dl Creatinine (0.6-1.2) mg/dl Est Cr Clr Drug Dosing ml/min Est GFR ( Amer) Est GFR (Non-Af Amer) BUN/Creatinine Ratio (10-20) Glucose (70-99) mg/dl Lactate 1.1 (0.4-2.0) mmol/L Calcium (8.5-10.1) mg/dl Magnesium (1.8-2.4) mg/dl Total Bilirubin (0.2-1) mg/dl AST (15-37) U/L ALT (12-78) U/L Alkaline Phosphatase (45-117) U/L Troponin I (0-0.045) ng/ml NT-Pro-B Natriuret Pep (0-900) pg/ml Total Protein (6.4-8.2) gm/dl Albumin (3.4-5.0) gm/dl Globulin (2.5-4.0) gm/dl Albumin/Globulin Ratio (0.9-2) Procalcitonin 0.25 (0-0.5) ng/ml Urine Color Urine Appearance (Clear) Urine pH (4.5-7.5) Ur Specific Lincoln (1.000-1.030) Urine Protein (Negative) Urine Glucose (UA) (Negative) Urine Ketones (Negative) Urine Blood (Negative) Urine Nitrite (Negative) Urine Bilirubin (Negative) Urine Urobilinogen (Negative) Ur Leukocyte Esterase (Negative) Urine WBC (Auto) (0-5) /hpf Urine RBC (Auto) (0-4) /hpf U Hyaline Cast (Auto) (0-5) /lpf U Epithel Cells (Auto) (0-5) /lpf Urine Bacteria (Auto) (Negative) Ur Renal Epithelial Cell COVID-19 Eval Order [facility] at [facility] SARS-CoV-2 (PCR) (Negative) Influenza Type A (PCR) (Neg) Influenza Type B (PCR) (Neg) RSV (RT-PCR) (Neg) 05/28/20 05/28/20 05/28/20 Range/Units 15:14 15:44 16:45 WBC (4.8-10.8) K/uL RBC (4.2-5.4) M/uL Hgb (12.0-16.0) g/dL Hct (37-47) % MCV (80-100) fL MCH (25-34) pg MCHC (32-36) g/dL RDW Std Deviation (36.4-46.3) fL RDW Coeff of Yariel (11.5-14.5) % Plt Count (130-400) K/uL MPV (7.4-10.4) fL Immature Gran % (Auto) % Neut % (Auto) % Lymph % (Auto) % Dent % (Auto) % Eos % (Auto) % Baso % (Auto) % Neut # (Auto) (1.4-6.5) K/uL Lymph # (Auto) (1.2-3.4) K/uL Dent # (Auto) (0.11-0.59) K/uL Eos # (Auto) (0-0.5) K/uL Baso # (Auto) (0-0.2) K/uL Immature Gran # (Auto) (0.00-0.02) K/uL PT (9.0-12.0) Seconds INR (0.9-1.1) APTT (21.0-31.0) Seconds PTT Ratio VBG pH 7.38 (7.36-7.41) VBG pCO2 55 H (38-50) mmHg VBG pO2 37 mmHg VBG HCO3 31 mmol/L VBG O2 Saturation 71.0 % VBG Base Excess 5.1 mEq/L Barometric Pressure 724.6 mm/Hg Sodium (136-145) mmol/L Potassium (3.5-5.1) mmol/L Chloride (98-107) mmol/L Carbon Dioxide (21-32) mmol/L Anion Gap (3-11) BUN (7-18) mg/dl Creatinine (0.6-1.2) mg/dl Est Cr Clr Drug Dosing ml/min Est GFR ( Amer) Est GFR (Non-Af Amer) BUN/Creatinine Ratio (10-20) Glucose (70-99) mg/dl Lactate (0.4-2.0) mmol/L Calcium (8.5-10.1) mg/dl Magnesium (1.8-2.4) mg/dl Total Bilirubin (0.2-1) mg/dl AST (15-37) U/L ALT (12-78) U/L Alkaline Phosphatase (45-117) U/L Troponin I (0-0.045) ng/ml NT-Pro-B Natriuret Pep (0-900) pg/ml Total Protein (6.4-8.2) gm/dl Albumin (3.4-5.0) gm/dl Globulin (2.5-4.0) gm/dl Albumin/Globulin Ratio (0.9-2) Procalcitonin (0-0.5) ng/ml Urine Color Yellow Urine Appearance Clear (Clear) Urine pH 6.0 (4.5-7.5) Ur Specific Lincoln 1.019 (1.000-1.030) Urine Protein 3+ H (Negative) Urine Glucose (UA) Negative (Negative) Urine Ketones Negative (Negative) Urine Blood 2+ H (Negative) Urine Nitrite Negative (Negative) Urine Bilirubin Negative (Negative) Urine Urobilinogen Negative (Negative) Ur Leukocyte Esterase Negative (Negative) Urine WBC (Auto) 5-10 H (0-5) /hpf Urine RBC (Auto) 10-30 H (0-4) /hpf U Hyaline Cast (Auto) 1-5 (0-5) /lpf U Epithel Cells (Auto) >30 H (0-5) /lpf Urine Bacteria (Auto) Negative (Negative) Ur Renal Epithelial Cell Not Reportable COVID-19 Eval Order SARS-CoV-2 (PCR) NEGATIVE (Negative) Influenza Type A (PCR) Negative (Neg) Influenza Type B (PCR) Negative (Neg) RSV (RT-PCR) Negative (Neg) Administered Medications Albuterol (Albut/Ipratrop 3mg/0.5mg Neb 3 Ml Vial) 3 ml NEB QIDR MOIRA Stop: 06/27/20 18:59 Last Admin: 05/28/20 19:23 Dose: 3 ml Documented by: [id number] Ceftriaxone Sodium 2,000 mg/ (Dextrose) 70 mls @ 100 mls/hr IV Q24H MOIRA; Protocol Stop: 06/04/20 17:59 Last Infusion: 05/28/20 19:32 Dose: 0 mls/hr Documented by: [id number] Admin: 05/28/20 18:29 Dose: 100 mls/hr Documented by: [id number] Insulin Aspart (Insulin Aspart 100 Units/Ml 3 Ml Pen) 0 units SC ACHS MOIRA Stop: 06/27/20 18:29 Last Admin: 05/28/20 19:34 Dose: 1 units Documented by: [id number] Cosigned by: [id number] Warfarin Sodium (Warfarin Sod 5 Mg Tab) 5 mg PO [id number] MOIRA Stop: 06/27/20 18:59 Last Admin: 05/28/20 19:27 Dose: 5 mg Documented by: [id number] Discontinued Medications Dexamethasone (Dexamethasone Sod Inj 10 Mg/Ml Vial) 10 mg IV NOW ONE Stop: 05/28/20 14:54 Last Admin: 05/28/20 15:36 Dose: 10 mg Documented by: [id number] Furosemide (Furosemide 40 Mg/4 Ml Vial) 40 mg IV NOW STA Stop: 05/28/20 17:05 Last Admin: 05/28/20 17:16 Dose: 40 mg Documented by: [id number] Imaging Data Radiologist's Impression: [facility], P [phone] XRay Report Patient: LU LE Date: 05/28/20MR#: [id number]: [address]Acct ID:[id number]: [facility]: 1945[facility] Zip: [place] [id number]: 74Location: EDSex: FRoom/Bed:Att Phy:Diagnosis: SHORTNESS OF BREATHPri Phy: Natalia Brambila DOService Date: 05/28/20Fa Phy:Interpreting Phy: Layton Brady MDAdmit Phy: Ordering Phy: Raphael Trejo DO cc: ~ XR chest 1V portable CLINICAL HISTORY: SEPSIS COMPARISON STUDY: Chest CT March 09, 2019. Chest radiograph March 01, 2019. FINDINGS: There is no pneumothorax. Moderate pulmonary edema is noted. There are moderate bilateral pleural effusions with bibasilar opacities. Cardiomegaly is noted. IMPRESSION: 1. Moderate pulmonary edema. 2. Moderate bilateral pleural effusions with bibasilar opacities that could reflect atelectasis or consolidation. Radiographic follow-up is recommended. ACT 112: Negative or not required by law. Electronically signed by: Layton Brady M.D. 05/28/2020 3:17 PM Dictated: 05/28/201515Transcribed: 05/28/201515 Discharge Plan Visit Data Chief Complaint: Shortness of Breath/Dyspnea ED Provider: Raphael Trejo Discharge Problem: Acute respiratory distress, Pleural effusion, Hypoxia Patient Disposition: Admitted As Inpatient Condition: Good Discharge Instructions Interventions: ED Discharge Assessment Last Done: 05/28/20 17:15
[2020-05-28 16:02] LABS: Base Excess VBG 5.1 mEq/L; pH VBG 7.38 (7.36-7.41)
[2020-05-28 16:13] LABS: Albumin Globulin Ratio 0.9 (0.9-2); Bilirubin,Total 0.3 mg/dl (0.2-1); Globulin 3.5 gm/dl (2.5-4.0); Total Protein 6.7 gm/dl (6.4-8.2); Troponin I 0.053 ng/ml (0-0.045)
[2020-05-28 16:20] LABS: Influenza A virus by PCR Negative (Neg); Influenza B virus by PCR Negative (Neg); RSV by PCR Negative (Neg); SARS CoV2 RNA(COVID-19) InHosp NEGATIVE (Negative)
--- NOTE | 2020-05-28 16:21 | Electrocardiogram Report ---
Test Reason : Blood Pressure : / mmHG Vent. Rate : 088 BPM Atrial Rate : 088 BPM P-R Int : 132 ms QRS Dur : 080 ms QT Int : 350 ms P-R-T Axes : 046 047 036 degrees QTc Int : 423 ms Normal sinus rhythm Nonspecific ST abnormality Abnormal ECG When compared with ECG of 23-FEB-2019 11:40, No significant change was found Confirmed by Raphael Shaw ([id number]) on 05/28/2020 4:20:41 PM Referred By: ER Confirmed By:Raphael Shaw
[2020-05-28 16:56] LABS: Appearance Urine Clear (Clear); Bacteria Urine Automated Negative (Negative); Bilirubin Urine Negative (Negative); Blood Urine 2+ (Negative); Color Urine Yellow; Epithelial Cell Urine Auto >30 /lpf (0-5); Glucose Urine UA Negative (Negative); Ketones Urine Negative (Negative); Leukocyte Esterase Urine Negative (Negative); Nitrite Urine Negative (Negative); Protein Urine 3+ (Negative); Specific Gravity Urine 1.019 (1.000-1.030); Urobilinogen Urine Negative (Negative)
[2020-05-28] MEDS ORDERED: FUROSEMIDE 40 MG/4 ML VIAL IV STA (17:04)
--- NOTE | 2020-05-28 17:24 | History & Physical Report ---
Date of Service May 28, 2020 Assessment & Plan (1) Acute and chronic respiratory failure with hypoxia: (2) Pleural effusion: Possible COPD Exacerbation Pt is 74 y/o F with PMH chronic hypoxic respiratory failure on 3 L O2, insulin dependent DM II, history of PE in 2019 continued on Coumadin, CKD III, ALL, HTN, dyslipidemia presented to ER with c/o SOB, cough x1 week. Denies fevers Reported sats 60% on chronic 3L O2 on EMS arrival. In ER pt afebrile, P: 86, R: 40 down to 26, BP: 176/66, On bipap with sat 96%. No leukocytosis. VBG: ph: 7.38, pCO2: 55, BNP: 672, INR: 2.8, Lactate and procalcitonin WNL. Negative COVID 19 and flu swab CXR: Moderate pulmonary edema.Moderate bilateral pleural effusions with bibasilar opacities that could reflect atelectasis or consolidation. PE less likely secondary to therapeutic INR Give dose Lasix 40 mg IV now followed by 40 mg daily Monitor I's and O's, daily weights In ER given Decadron 10 mg Start prednisone 40 mg daily Continue BiPAP Duo nebs Continue home inhaler Start Rocephin Sputum culture, blood cultures pending A.m. labs Consider pulmonology consult if no improvement (3) Elevated troponin: Troponin: 0.05. EKG with nonspecific ST changes Trend troponin Repeat EKG in a.m. (4) Pulmonary embolism: History pulmonary as embolism in 2019. On Coumadin INR: 2.8 Continue Coumadin INR in a.m. (5) CKD (chronic kidney disease), stage III: Cr: 1.4. Baseline 1.2 Monitor renal function Avoid nephrotoxic agents when possible (6) DM type 2 (diabetes mellitus, type 2): A1c 5.3 on 09/2019 Hold home insulin Basal bolus insulin per protocol (7) ALL (acute lymphoblastic leukemia): Diagnosed in 2019. follows with Dr. Boyd Collier (8) Anemia: Chronic anemia. Hemoglobin at baseline (9) Hypertension: Continue amlodipine, metoprolol (10) Dyslipidemia: Continue atorvastatin DVT Prophylaxis -On Coumadin Full Code as per discussion with pt Follows with Dr Brambila for routine care Pt was seen and care coordinated with Dr Fontaine. See addendum History of Present Illness Chief Complaint: SOB Primary Care Provider: Natalia Brambila DO Pt is 74 y/o F with PMH chronic hypoxic respiratory failure on 3 L O2, insulin dependent DM II, history of PE in 2019 continued on Coumadin, CKD III, ALL, HTN, dyslipidemia presented to ER with complaint of shortness of breath x1 week. Patient reports increasing SOB and increased cough over the past week. Reports chronic cough productive of white sputum at baseline however has had blood- tinged yellow sputum. Has been taking nebulizer treatments at home without relief. Is prescribed Bumex for lower extremity edema however patient reports does not take regularly as does not want to urinate often. Denies any fevers or chills. Denies any known COVID-19 exposures. Reports uses 3 pillows at baseline. Denies any noted increased orthopnea. Patient denies any noted lower extremity edema. It is reported upon EMS arrival today patient's oxygen saturations were 60% on 3 L O2 and she was given nebulizer treatment in route. In ER patient placed on BiPAP with improvement. Denies fever/chills, diaphoresis, N/V/D/C, SAUL, dizziness, syncope, vision changes, neck pain, CP, palpitations, cough, sore throat, choking, otalgia, rhinorrhea, abdominal pain, paresthesias, weakness, extremity weakness, rashes, urinary symptoms. Pt with h/o left-sided pleural effusion in past requiring hospitalization and thoracentesis in 2019. Initially was thought secondary to Sprycel which was discontinued however was restarted by oncology-Dr. Nix Allergies Allergy/AdvReac Type Severity Reaction Status Date / Time No Known Allergies Allergy Verified 05/28/20 17:13 Home Medications Medication Instructions Recorded Confirmed Type tramadol 50 mg PO Q6H PRN 04/05/18 05/28/20 History Levemir FlexTouch U-100 Insuln 6 units SUBCUT QPM 06/09/18 05/28/20 History Sprycel 70 mg PO BID 06/12/18 05/28/20 History acetaminophen [Mapap 650 mg PO Q4H PRN #100 tab 07/03/18 05/28/20 Rx (acetaminophen)] Levemir FlexTouch U-100 Insuln 14 unit SUBCUT QAM 02/23/19 05/28/20 History atorvastatin 40 mg PO PM 02/23/19 05/28/20 History bumetanide 1 mg PO DAILY 02/23/19 05/28/20 History ipratropium-albuterol 3 ml INHALATION BID 02/23/19 05/28/20 History lorazepam 0.5 mg SUBLINGUAL BID PRN 02/23/19 05/28/20 History metoprolol succinate 25 mg PO DAILY 02/23/19 05/28/20 History potassium chloride 20 meq PO DAILY 02/23/19 05/28/20 History Lactobacillus acidophilus 10,000 mmu cells PO DAILY 05/28/20 05/28/20 History [Probiotic] amlodipine 10 mg PO DAILY 05/28/20 05/28/20 History cyanocobalamin (vitamin B-12) 100 mcg PO DAILY 05/28/20 05/28/20 History fluticasone propion-salmeterol 1 inh INHALATION BID 05/28/20 05/28/20 History [Wixela Inhub] folic acid 1 mg PO DAILY 05/28/20 05/28/20 History omeprazole 20 mg PO BID 05/28/20 05/28/20 History warfarin 5 mg PO DIRECTED 05/28/20 05/28/20 History Past Med/Surg History Medical History Acute hypoxemic respiratory failure ALL (acute lymphoblastic leukemia) Bacteremia Chronic respiratory failure CKD (chronic kidney disease), stage III COPD (chronic obstructive pulmonary disease) Depression Diabetes mellitus Diabetes mellitus, type II DM type 2 (diabetes mellitus, type 2) Dyslipidemia EKG abnormalities GERD (gastroesophageal reflux disease) GERD (gastroesophageal reflux disease) Hypertension Leg edema Lumbar disc disease Moderate COPD (chronic obstructive pulmonary disease) MRSA (methicillin resistant Staphylococcus aureus) septicemia Mucoid impaction of bronchi Nocturnal hypoxia Osteoarthritis Ovarian cyst Pulmonary embolism Secondary hyperparathyroidism Splenomegaly Tobacco use Surgical History H/O tubal ligation History of cholecystectomy Family History Denies family history of Coronary heart disease Social History Smoking Status: Former smoker Tobacco Type: Cigarettes Hx Alcohol Use: No Hx Substance Use: No Preferred Language: Upper Sorbian Communication Ability: Effective Visual Impairment: No Limitations Hearing Ability: Normal 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 Beliefs That Will Affect Care: None marital status: / Current Living Situation: Alone Current Living Situation Comment: House Other Information That Helps Us Care for You: No Feels Safe at Home: Yes Safety Concerns: Feels Safe At This Time Assistive Devices: Walker Review of Systems Review of Systems: All systems reviewed & are unremarkable except as noted in HPI & below Physical Exam Physical Exam: General: Mild respiratory distress, on bipap, WDWN Head: normocephalic, atraumatic Eyes: PERRL, EOM's intact, right subconjunctival hemorrhage medial aspect of eye, left conjunctiva non-injected, anicteric ENT: normal inspection external ears, nose, mucous membranes moist Neck: supple, trachea midline Lungs: Currently on Bipap, respirations 22 and non-labored, 02 sat 95% and toleratingbipap well, diminished mid to base bilateral lungs, upper lung mercado without wheezing/rhonchi/rales CV: RRR, no murmur, no significant pretibial edema Abd: normal BS, soft, non-tender Ext: no cyanosis, no calf tenderness Neuro: A&O x 3, no focal deficits noted, normal affect Skin: warm, dry Results & Data Results & Data ([facility]) Vital Signs (Past 12 Hours) Vital Signs Temp Pulse Resp BP Pulse Ox 05/28/20 17:01 91 H 21 94 05/28/20 17:00 85 22 160/58 H 95 05/28/20 16:30 24 156/66 H 95 05/28/20 16:00 91 H 26 H 175/78 H 96 05/28/20 15:30 23 160/61 H 95 05/28/20 15:05 60 26 H 96 05/28/20 15:00 89 25 H 176/67 H 99 05/28/20 14:55 37.0 C 86 40 H 176/66 H 98 05/28/20 14:53 88 24 179/66 H 98 Laboratory Results Short CBC 05/28/20 Range/Units 15:11 WBC 6.65 (4.8-10.8) K/uL Hgb 11.5 L (12.0-16.0) g/dL Hct 36.4 L (37-47) % Plt Count 234 (130-400) K/uL BMP 05/28/20 15:11 Sodium 145 Potassium 3.5 Chloride 109 H Carbon Dioxide 33 H BUN 20 H Creatinine 1.42 H Glucose 131 H Calcium 8.5 Cardiac Enzymes 05/28/20 Range/Units 15:11 Troponin I 0.053 H* (0-0.045) ng/ml Liver Function 05/28/20 Range/Units 15:11 Total Bilirubin 0.3 (0.2-1) mg/dl AST 34 (15-37) U/L ALT 28 (12-78) U/L Alkaline Phosphatase 95 (45-117) U/L Albumin 3.2 L (3.4-5.0) gm/dl Urine 05/28/20 Range/Units 16:45 Urine Color Yellow Urine Appearance Clear (Clear) Urine pH 6.0 (4.5-7.5) Ur Specific [place] 1.019 (1.000-1.030) Urine Protein 3+ H (Negative) Urine Glucose (UA) Negative (Negative) Diagnostic Findings CXR: IMPRESSION: 1. Moderate pulmonary edema. 2. Moderate bilateral pleural effusions with bibasilar opacities that could reflect atelectasis or consolidation. Radiographic follow-up is recommended. Code Status & VTE Plan VTE Prophylaxis Plan VTE Prophylaxis will be ordered: Yes Supervising Physician Co-Signing Physician Notes I have seen and examined the patient and have discussed the case with the provider above. I agree with the assessment and plan as stated with the following exceptions. The patient is a 74 yo F with h/o ALL, BCR-ABL positive diagnosed Apr 2018 who is on dasatinib therapy. She presents with acute on chronic hypoxic respiratory failure in the setting of volume overload from pulmonary edema and pleural effusions. She has no clinical picture consistent with pneumonia and no wheezing at this time. She is on dasatinib therapy known to cause pulmonary edema and pleural effusions as a side effect and she has required thoracentesis previously for this. She is feeling better after Lasix 40mg IV was given and has diuresed over 1L out this afternoon. On exam she remains comfortable on the BIPAP and in no acute respiratory distress. She is mentating clearly. Skin is warm and dry. Cardiac exam reveals S1/2 heard without murmurs, gallops or rubs, and there is no peripheral edema or swelling present. Lung exam reveals coarse rhonchi at the bases bilaterally with clear air flow from mid to higher lung mercado. Abdomen is soft, NTND. Recent [facility] at home notes have noted that this dyspnea on exertion and fatigue has been evolving since the end of Apr. Patient as reported noncompliance with daily bumex therapy. Concern for adverse side effect of dasatinib vs acute heart failure with possible COPD exacerbation. For now she will cont on steroids, antibiotics and scheduled bronchodilator therapy for possible COPD exacerbation. There is no evidence of pneumonia at this point and procalcitonin is negative. Suspect moreso dasatinib side effect than heart failure with normal BNP especially in light of noncompliance with daily Bumex. Appreciate pulmonology thoughts. Most recent echo is two years old, so would repeat this now. Primary attending to touch base with Hematology (Dr. 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 Cont with Lasix for diuresis at least daily for now. Of note, she may just have been noncompliant with Bumex for too long and this caught up with her. She might do well with a couple days of IV diuresis to get back on track, and still be able to continue her dasatinib along with her Bumex daily, but we will need a couple of days to sort this out. DO Zhen (1) Anemia Anemia type: unspecified type Qualified Code(s): D64.9 - Anemia, unspecified (2) Pulmonary embolism Acute cor pulmonale presence: without acute cor pulmonale Chronicity: unspecified Pulmonary embolism type: saddle Qualified Code(s): I26.92 - Saddle embolus of pulmonary artery without acute cor pulmonale
[2020-05-28] MEDS ORDERED: DEXTROSE 50% 50 ML SYRINGE IV PRN (17:42)
[2020-05-28] MEDS ORDERED: GLUCOSE 40% GEL 15 GM TUBE PO PRN (17:42)
[2020-05-28] MEDS ORDERED: GLUCOSE 10 TABS/TUBE PO PRN (17:42)
[2020-05-28] MEDS ORDERED: CARBOHYDRATES FOR HYPOGLYCEMIA PO PRN (17:42)
[2020-05-28] MEDS ORDERED: NITROGLYCERIN SL 0.4 MG/TAB TAB SL PRN (17:42)
[2020-05-28] MEDS ORDERED: GLUCAGON FOR INJ 1 MG VIAL SQ PRN (17:42)
[2020-05-28] MEDS: cefTRIAXone SODIUM 2,000 MG in DEXTROSE 5% 50 ML IV SCH (18:29)
[2020-05-28] MEDS ORDERED: WARFARIN SOD 5 MG TAB PO SCH (19:00)
[2020-05-28] MEDS: ALBUT/IPRATROP 3MG/0.5MG NEB 3 ML VIAL NEB SCH (19:23)
[2020-05-28] MEDS: INSULIN ASPART 100 UNITS/ML 3 ML PEN SC SCH ×2 (19:34→22:43)
[2020-05-28] MEDS ORDERED: POTASSIUM CHLORIDE CRTAB 20 MEQ TABCR PO ONE (21:00)
[2020-05-28] MEDS: ATORVASTATIN 40 MG TAB PO SCH (21:46)
[2020-05-28] MEDS: PANTOprazole 40 MG TAB PO SCH (21:46)
[2020-05-28] MEDS: INSULIN GLARGINE SOLOSTAR 100 UNITS/ML 3 ML PEN SC SCH (22:41)
[2020-05-29 03:00] LABS: Basophils # (auto) 0.01 K/uL (0-0.2); Basophils % (auto) 0.3 %; Hematocrit (blood only) 36.4 % (37-47); Hemoglobin 11.7 g/dL (12.0-16.0); Lymphocytes # (auto) 0.27 K/uL (1.2-3.4); Lymphocytes % (auto) 7.2 %; Mean Corpuscular Hemoglobin 29.8 pg (25-34); Mean Corpuscular Hgb Conc 32.1 g/dL (32-36); Mean Corpuscular Volume 92.6 fL (80-100); Mean Platelet Volume 8.9 fL (7.4-10.4); Monocytes # (auto) 0.05 K/uL (0.11-0.59); Monocytes % (auto) 1.3 %; Neutrophils # (auto) 3.42 K/uL (1.4-6.5); Neutrophils % (auto) 91.2 %; Platelet Count 245 K/uL (130-400); RDW Coefficient of Variation 15.8 % (11.5-14.5); RDW Standard Deviation 53.9 fL (36.4-46.3); Red Blood Count 3.93 M/uL (4.2-5.4); White Blood Count 3.75 K/uL (4.8-10.8)
[2020-05-29 03:13] LABS: INR 2.6 (0.9-1.1); Prothrombin Time 24.1 Seconds (9.0-12.0)
[2020-05-29 03:18] LABS: BUN Creatinine Ratio 17.4 (10-20); Calcium 8.7 mg/dl (8.5-10.1); Creatinine Clr Calc Pharmacy 48.3 ml/min; Est GFR (African American) 54.7; Est GFR (Non-African American) 47.2; Magnesium 2.1 mg/dl (1.8-2.4); Potassium 3.9 mmol/L (3.5-5.1)
[2020-05-29 03:39] LABS: Troponin I 0.05 ng/ml (0-0.045)
[2020-05-29] MEDS: ACETAMINOPHEN 325 MG TAB PO PRN ×2 (04:35→21:58)
[2020-05-29 06:26] LABS: Estimated Average Glucose 105 mg/dl; Hemoglobin A1C 5.3 % (4.5-5.6)
[2020-05-29] MEDS: ALBUT/IPRATROP 3MG/0.5MG NEB 3 ML VIAL NEB SCH ×3 (07:28→19:19)
[2020-05-29] MEDS: INSULIN ASPART 100 UNITS/ML 3 ML PEN SC SCH ×4 (08:00→20:56)
--- NOTE | 2020-05-29 08:33 | CT Scan Report ---
CT chest diagnostic wo con CT DOSE: 379.81 mGy.cm CLINICAL HISTORY: 74 years-old Female with sob. Acute cough with shortness of breath TECHNIQUE: Multiaxial CT images of the chest were performed without contrast. A dose lowering techni que was utilized adhering to the principles of ALARA. COMPARISON: Chest CT 02/27/2019, chest radiograph 05/28/2020. FINDINGS: Unremarkable thyroid. No adenopathy. Calcified left hilar lymph nodes. Mild cardiomegaly wi th extensive coronary artery calcifications. Calcified plaque of the thoracic aorta without aneurysm. Dilated main pulmonary artery measures up to 3.2 cm. Moderate to large pleural effusions. No pneumothorax. Calcified granuloma of the lingula. Bibasilar c onsolidation with air bronchograms. Intralobular septal thickening with intermixed groundglass densit ies. Central airways are patent. Minimal tracheobronchial secretions. No acute process of the imaged upper abdomen. No acute fracture. Degenerative changes of the shoulder s and spine. IMPRESSION: 1. Cardiomegaly with pulmonary edema. 2. Moderate to large pleural effusions. 3. Bibasilar consolidative opacities with air bronchograms are suggestive of compressive atelectasis versus pneumonia. 4. Prior granulomatous disease. ACT 112: Negative or not required by law. Electronically signed by: Aime Lynn M.D. 05/29/2020 8:32 AM
[2020-05-29] MEDS: METOPROLOL SUCC 25MG EXT REL TAB PO SCH (08:38)
[2020-05-29] MEDS: CYANOCOBALAMIN (VITAMIN B-12) 100 MCG TABLET PO SCH (08:38)
[2020-05-29] MEDS: PANTOprazole 40 MG TAB PO SCH ×2 (08:38→20:53)
[2020-05-29] MEDS: amLODIPine BESYLATE 5 MG TAB PO SCH (08:39)
[2020-05-29] MEDS: ADVANCED PROBIOTIC 1250 MG CAPSULE PO SCH (08:39)
[2020-05-29] MEDS: predniSONE 20 MG TAB PO SCH (08:39)
[2020-05-29] MEDS: POTASSIUM CHLORIDE CRTAB 20 MEQ TABCR PO SCH (08:39)
[2020-05-29] MEDS: FOLIC ACID 1 MG TAB PO SCH (08:40)
[2020-05-29] MEDS: FUROSEMIDE 40 MG in SYRINGE 0 ML IV SCH (08:41)
[2020-05-29] MEDS: INSULIN GLARGINE SOLOSTAR 100 UNITS/ML 3 ML PEN SC SCH ×2 (08:42→20:55)
[2020-05-29] MEDS ORDERED: FUROSEMIDE 40 MG/4 ML VIAL IV SCH (09:00)
[2020-05-29] MEDS ORDERED: FLUTICASONE/VILANTEROL 200/25MCG 14 PUFFS/INHALER INH SCH (09:00)
--- NOTE | 2020-05-29 09:41 | Pulmonary Consultation ---
Date of Consultation May 29, 2020 Assessment & Plan (1) Pleural effusion: CT chest 05/29/2020 personally reviewed: Bilateral moderate to large pleural effusion, centrilobular emphysema, air trapping appreciated, atelectasis of bilateral lower lobes likely compression from the pleural effusion, cardiomegaly -- Bilateral pleural effusion Likely from underlying diastolic CHF Dasatinib can also cause pleural effusion along with AML which the patient has Patient is not in respiratory distress, talking in full sentences, diuresing well on diuretics right now, no signs of any infection --> no indication for emergent thoracentesis Would continue with diuresis, hold warfarin --> start heparin or Lovenox once INR is less than 2 --> thoracentesis when INR is less than 1.7 Thoracentesis 03/02/2019 when 900 mm of sanguinous fluid aspirated. Lymphocytic. Cytology was negative for malignancy 2D echo 2018: EF 65% BNP 667 COVID-19, influenza A, influenza B negative 05/28/2020 Procalcitonin 0.25 --Acute on chronic hypoxic respiratory failure with underlying COPD Continue with oxygen therapy, maintain O2 saturation between 88 to 92% Not in acute COPD exacerbation, continue with inhaled therapy Patient is on Wixela at home I would rather have the patient on Anoro on discharge --Probable MARCO Mallampati 4, snoring at night BiPAP nightly Needs outpatient polysomnography --History of PE in May 2018 On Coumadin with supratherapeutic INR Plan: Aggressive diuresis to keep the patient negative balance BiPAP nightly and as needed shortness of breath Incentive spirometry Follow-up 2D echo Change Breo to Anoro. DC steroids. Hold warfarin, with plan to do thoracentesis if there is no clinical improvement with diuresis and when INR is less than 1.7 Please note the above document was generated using voice recognition software. It may contain grammatical, syntax or spelling errors.Any formal questions or concerns about the content, text or information contained within the body of this dictation should be directly addressed to the provider for clarification. 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 Pulmonary were consulted for possible Effusion from Dasatinib Patient had thoracentesis done on 03/02/2019 when 900 mm of sanguinous fluid aspirated. Cytology was negative for malignancy At the time of examination patient stated that her shortness of breath has been getting progressively worse since last week or so. She again stopped using Lasix just as previous admission because she had to pee at night. Denies any chest pain. Did have one episode of hemoptysis which was minimal and did not recur. Brings up clear phlegm now. Denies any fever or chills. No dysuria, no diarrhea. Has been compliant with dasatinib. Has not been taking it while being in the hospital. No headache, no nausea or vomiting. Social history: Greater than [id number] smoking history, quit approximately 10 years ago, no alcohol, denies any illicit drug use. Allergies: No known drug allergies Allergies Allergy/AdvReac Type Severity Reaction Status Date / Time No Known Allergies Allergy Verified 05/28/20 17:13 Home Medications Medication Instructions Recorded Confirmed Type tramadol 50 mg PO Q6H PRN 04/05/18 05/28/20 History Levemir FlexTouch U-100 Insuln 6 units SUBCUT QPM 06/09/18 05/28/20 History Sprycel 70 mg PO BID 06/12/18 05/28/20 History acetaminophen [Mapap 650 mg PO Q4H PRN #100 tab 07/03/18 05/28/20 Rx (acetaminophen)] Levemir FlexTouch U-100 Insuln 14 unit SUBCUT QAM 02/23/19 05/28/20 History atorvastatin 40 mg PO PM 02/23/19 05/28/20 History bumetanide 1 mg PO DAILY 02/23/19 05/28/20 History ipratropium-albuterol 3 ml INHALATION BID 02/23/19 05/28/20 History lorazepam 0.5 mg SUBLINGUAL BID PRN 02/23/19 05/28/20 History metoprolol succinate 25 mg PO DAILY 02/23/19 05/28/20 History potassium chloride 20 meq PO DAILY 02/23/19 05/28/20 History Lactobacillus acidophilus 10,000 mmu cells PO DAILY 05/28/20 05/28/20 History [Probiotic] amlodipine 10 mg PO DAILY 05/28/20 05/28/20 History cyanocobalamin (vitamin B-12) 100 mcg PO DAILY 05/28/20 05/28/20 History fluticasone propion-salmeterol 1 inh INHALATION BID 05/28/20 05/28/20 History [Wixela Inhub] folic acid 1 mg PO DAILY 05/28/20 05/28/20 History omeprazole 20 mg PO BID 05/28/20 05/28/20 History warfarin 5 mg PO DIRECTED 05/28/20 05/28/20 History Patient History Medical History Acute hypoxemic respiratory failure ALL (acute lymphoblastic leukemia) Bacteremia Chronic respiratory failure CKD (chronic kidney disease), stage III COPD (chronic obstructive pulmonary disease) Depression Diabetes mellitus Diabetes mellitus, type II DM type 2 (diabetes mellitus, type 2) Dyslipidemia EKG abnormalities GERD (gastroesophageal reflux disease) GERD (gastroesophageal reflux disease) Hypertension Leg edema Lumbar disc disease Moderate COPD (chronic obstructive pulmonary disease) MRSA (methicillin resistant Staphylococcus aureus) septicemia Mucoid impaction of bronchi Nocturnal hypoxia Osteoarthritis Ovarian cyst Pulmonary embolism Secondary hyperparathyroidism Splenomegaly Tobacco use Surgical History H/O tubal ligation History of cholecystectomy Family History Denies family history of Coronary heart disease Social History Smoking Status: Former smoker Tobacco Type: Cigarettes Hx Alcohol Use: No Hx Substance Use: No Preferred Language: Albanian Communication Ability: Effective Visual Impairment: No Limitations Hearing Ability: Normal 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 Beliefs That Will Affect Care: None marital status: / Current Living Situation: Alone Current Living Situation Comment: House Other Information That Helps Us Care for You: No Feels Safe at Home: Yes Safety Concerns: Feels Safe At This Time Assistive Devices: Glasses and Oxygen - Continuous Review of Systems Review of Systems: All systems reviewed & are unremarkable except as noted in HPI & below Physical Exam Physical Exam: Constitutional: No acute distress HEENT: EOMI, PERRLA, Mallampati 4 Respiratory system: Decreased air entry bilaterally, more decreased on the left side, positive crackles bilateral lower lobes, no wheeze, no rhonchi CVS: S1-S2 positive, no murmurs or gallops Abdomen: Soft, nontender, nondistended, positive bowel sounds x4 Extremities: +2 pulses bilaterally radialis/ dorsalis pedis, +1 pitting edema bilateral lower extremity, no cyanosis Neuro: Awake alert oriented x3 Psych: Normal mood and affect Skin: no rashes, warm and dry Lymphatic: no cervical or axillary lymphadenopathy Results & Data Results & Data ([facility]) Vital Signs (Past 12 Hours) Vital Signs Temp Pulse Pulse Resp BP Pulse Ox 05/29/20 07:28 85 20 93 05/29/20 07:10 37.0 C 83 20 174/73 H 92 05/29/20 04:28 36.8 C 84 20 161/68 H 94 05/28/20 23:00 86 05/28/20 22:59 36.7 C 88 19 169/75 H 95 05/28/20 22:34 90 24 95 05/29/20 02:48 05/29/20 02:48 PG Care Time/CCT Total # of Minutes Spent Total Time Spent with Patient: Total time spent is greater than 50% in coordination of care (as documented) at patient's floor/unit and/or counseling patient: Coding Level of Care Code 90843 Initial Inpt Care Lvl 3 Diagnoses Pleural effusion J90 Acute and chronic respiratory failure with hypoxia J96.21 COPD (chronic obstructive pulmonary disease) J44.9 ALL (acute lymphoblastic leukemia) C91.00 CKD (chronic kidney disease), stage III N18.3
--- NOTE | 2020-05-29 13:59 | Hospitalist Progress Note ---
Date of Service May 29, 2020 Assessment & Plan (1) Acute and chronic respiratory failure with hypoxia: Presented with severe hypoxemia Likely secondary to pulmonary edema and is complicated by COPD Chest x-ray and very high BNP are compatible with CHF She required high flow oxygen but since this morning her requirements has gone back to her baseline Has been feeling much better History of COPD Doubt any COPD exacerbation We will continue current home medications for COPD We will continue BiPAP as needed (2) Pleural effusion: Has bilateral pleural effusion likely secondary to acute on chronic diastolic CHF Dasatinib for ALL can cause pleural effusion-we will discuss with the oncologist Appreciate pulmonary input and recommendation We will continue current diuretics Possible thoracentesis when the INR is appropriate Acute on chronic diastolic CHF Will get updated echo (3) Elevated troponin: Troponin: 0.05. EKG with nonspecific ST changes Trend troponin-has been improving and doubt any ACS Await updated echo (4) Pulmonary embolism: History pulmonary as embolism in 2019. On Coumadin INR: 2.8 Continue Coumadin We will hold Coumadin for now and will start intravenous heparin/Lovenox when INR is subtherapeutic and prepare the patient for thoracentesis down the line (5) CKD (chronic kidney disease), stage III: Cr: 1.4. Baseline 1.2 Monitor renal function Avoid nephrotoxic agents when possible (6) DM type 2 (diabetes mellitus, type 2): A1c 5.3 on 09/2019 Hold home insulin Basal bolus insulin per protocol (7) ALL (acute lymphoblastic leukemia): Diagnosed in 2019. follows with Dr[address] Nix Continue Sprycel-which can cause pleural effusion We will discuss with oncologist (8) Anemia: Chronic anemia. 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 She has been feeling much better since administration of diuretics Still has moderate shortness of breath but denies any chest pain and/or palpitation, has any fever and/or chills. Review of Systems Review of Systems: All systems reviewed and are unremarkable except as noted below Respiratory: + cough, + chest congestion, + dyspnea and + dyspnea on exertion Cardiovascular: + dyspnea at rest, + dyspnea on exertion and + palpitations Neurologic: Alert, awake and oriented x3 Physical Exam Physical Exam: Sitting at the edge of the bed with moderate shortness of breath Constitutional: + ill appearing and average body habitus Eyes: PERRL, conjunctivae normal, anicteric sclerae ENMT: external ear and nose normal, oropharynx normal Neck: trachea midline, no thyromegaly Respiratory: + respiratory distress and + labored breathing Auscultation: + diminished lung sounds and + crackles (Decreased breath sounds at the bases with crackles ) Cardiovascular: Rate/Rhythm: regular rate and regular rhythm Heart Sounds: no murmur Extremities: + edema (1+ edema bilaterally) Gastrointestinal (Abdomen): Inspection/Auscultation: normal bowel sounds; abdomen not distended Percussion/Palpation: abdomen soft; abdomen nontender Musculoskeletal: No acute arthritis involving any joint Neurologic: Alert, awake and oriented x3. Generally weak Psychiatric: A+Ox3, euthymic affect Lymphatic: no cervical or axillary lymphadenopathy Results & Data Results & Data ([facility]) Vital Signs (Past 12 Hours) Vital Signs Temp Pulse Pulse Resp BP Pulse Ox 05/29/20 11:20 89 20 94 05/29/20 11:03 36.7 C 89 22 164/67 H 91 05/29/20 08:00 87 05/29/20 07:28 85 20 93 05/29/20 07:10 37.0 C 83 20 174/73 H 92 05/29/20 04:28 36.8 C 84 20 161/68 H 94 Laboratory Results Short CBC 05/28/20 05/29/20 Range/Units 15:11 02:48 WBC 6.65 3.75 L (4.8-10.8) K/uL Hgb 11.5 L 11.7 L (12.0-16.0) g/dL Hct 36.4 L 36.4 L (37-47) % Plt Count 234 245 (130-400) K/uL BMP 05/28/20 05/29/20 15:11 02:48 Sodium 145 144 Potassium 3.5 3.9 Chloride 109 H 107 Carbon Dioxide 33 H 32 BUN 20 H 20 H Creatinine 1.42 H 1.15 Glucose 131 H 158 H Calcium 8.5 8.7 Cardiac Enzymes 05/28/20 05/28/20 05/29/20 Range/Units 15:11 20:43 02:48 Troponin I 0.053 H* 0.094 H* 0.050 H* (0-0.045) ng/ml Liver Function 05/28/20 Range/Units 15:11 Total Bilirubin 0.3 (0.2-1) mg/dl AST 34 (15-37) U/L ALT 28 (12-78) U/L Alkaline Phosphatase 95 (45-117) U/L Albumin 3.2 L (3.4-5.0) gm/dl Urine 05/28/20 Range/Units 16:45 Urine Color Yellow Urine Appearance Clear (Clear) Urine pH 6.0 (4.5-7.5) Ur Specific Williams 1.019 (1.000-1.030) Urine Protein 3+ H (Negative) Urine Glucose (UA) Negative (Negative) Medications Administered Current Inpatient Medications Acetaminophen (Acetaminophen 325 Mg Tab) 650 mg PO Q4H PRN PRN Reason: Pain or Fever Stop: 06/27/20 17:41 Last Admin: 05/29/20 04:35 Dose: 650 mg Documented by: Albuterol (Albut/Ipratrop 3mg/0.5mg Neb 3 Ml Vial) 3 ml NEB BIDR [facility] Stop: 06/28/20 18:59 Amlodipine Besylate (Amlodipine Besylate 5 Mg Tab) 10 mg PO DAILY [facility] Stop: 06/28/20 08:59 Last Admin: 05/29/20 08:39 Dose: 10 mg Documented by: Atorvastatin Calcium (Atorvastatin 40 Mg Tab) 40 mg PO PM [facility] Stop: 06/27/20 20:59 Last Admin: 05/28/20 21:46 Dose: 40 mg Documented by: Cyanocobalamin (Cyanocobalamin (Vitamin B-12) 100 Mcg Tablet) 100 mcg PO DAILY [facility] Stop: 06/28/20 08:59 Last Admin: 05/29/20 08:38 Dose: 100 mcg Documented by: Dextrose (Dextrose 50% 50 Ml Syringe) 25 - 50 ml IV UD PRN; Protocol PRN Reason: Hypoglycemia Protocol Stop: 06/27/20 17:41 Folic Acid (Folic Acid 1 Mg Tab) 1 mg PO DAILY [facility] Stop: 06/28/20 08:59 Last Admin: 05/29/20 08:40 Dose: 1 mg Documented by: Glucagon (Glucagon For Inj 1 Mg Vial) 1 mg SQ UD PRN; Protocol PRN Reason: Hypoglycemia Protocol Stop: 06/27/20 17:41 Glucose (Glucose 10 Tabs/Tube) 4 - 8 tabs PO UD PRN; Protocol PRN Reason: Hypoglycemia Protocol Stop: 06/27/20 17:41 Glucose (Glucose 40% Gel 15 Gm Tube) 15 - 30 gm PO UD PRN; Protocol PRN Reason: Hypoglycemia Protocol Stop: 06/27/20 17:41 Ceftriaxone Sodium 2,000 mg/ (Dextrose) 70 mls @ 100 mls/hr IV Q24H [facility]; Protocol Stop: 06/04/20 17:59 Last Infusion: 05/28/20 19:32 Dose: Infused Documented by: Furosemide 40 mg/ Syringe 4 mls @ 4 mls/min IV DAILY [facility] Stop: 06/28/20 08:59 Last Admin: 05/29/20 08:41 Dose: 4 mls/min Documented by: Insulin Aspart (Insulin Aspart 100 Units/Ml 3 Ml Pen) 0 units SC ACHS [facility] Stop: 06/27/20 18:29 Last Admin: 05/29/20 11:57 Dose: 3 units Documented by: Insulin Glargine (Insulin Glargine Solostar 100 Units/Ml 3 Ml Pen) 0 - 10 units SC BID [facility]; Protocol Stop: 06/27/20 20:59 Last Admin: 05/29/20 08:42 Dose: 5 units Documented by: Lactobacillus Acidoph/Casei/Rhamnos (Advanced Probiotic 1250 Mg Capsule) 2 cap PO DAILY [facility] Stop: 06/28/20 08:59 Last Admin: 05/29/20 08:39 Dose: 2 cap Documented by: Metoprolol Succinate (Metoprolol Succ 25mg Ext Rel Tab) 25 mg PO DAILY [facility] Stop: 06/28/20 08:59 Last Admin: 05/29/20 08:38 Dose: 25 mg Documented by: Miscellaneous (Carbohydrates For Hypoglycemia ) 15 - 30 gm PO UD PRN PRN Reason: Hypoglycemia Protocol Stop: 06/27/20 17:41 Miscellaneous (Sprycel- Order Awaiting Action) 1 ea N/A QS [facility] Stop: 06/28/20 00:00 Last Admin: 05/29/20 08:53 Dose: Not Given Documented by: Nitroglycerin (Nitroglycerin Sl 0.4 Mg/Tab Tab) 0.4 mg SL UD PRN PRN Reason: Chest Pain Stop: 06/27/20 17:41 Pantoprazole Sodium (Pantoprazole 40 Mg Tab) 40 mg PO BID [facility] Stop: 06/27/20 20:59 Last Admin: 05/29/20 08:38 Dose: 40 mg Documented by: Potassium Chloride (Potassium Chloride Crtab 20 Meq Tabcr) 20 meq PO DAILY [facility] Stop: 06/28/20 08:59 Last Admin: 05/29/20 08:39 Dose: 20 meq Documented by: Prednisone (Prednisone 20 Mg Tab) 40 mg PO DAILY [facility] Stop: 06/28/20 08:59 Last Admin: 05/29/20 08:39 Dose: 40 mg Documented by: Umeclidinium/Vilanterol (Umeclidinium/Vilanterol 62.5/25mcg 7 Puffs/Inhaler) 1 puffs INH DAILY [facility] Stop: 06/29/20 08:59 Warfarin Sodium (Warfarin Sod 5 Mg Tab) 5 mg PO [id number]@1600 [facility] Stop: 06/27/20 18:59 Last Admin: 05/28/20 19:27 Dose: 5 mg Documented by: Warfarin Sodium (Warfarin Sod 7.5 Mg Tab) 7.5 mg PO Mo@1600 [facility] Stop: 07/02/20 15:59 (1) Pulmonary embolism Pulmonary embolism type: saddle Chronicity: unspecified Acute cor pulmonale presence: without acute cor pulmonale Qualified Code(s): I26.92 - Saddle embolus of pulmonary artery without acute cor pulmonale (2) Anemia Anemia type: unspecified type Qualified Code(s): D64.9 - Anemia, unspecified
[2020-05-29] MEDS: cefTRIAXone SODIUM 2,000 MG in DEXTROSE 5% 50 ML IV SCH (17:22)
[2020-05-29] MEDS: ATORVASTATIN 40 MG TAB PO SCH (20:53)
[2020-05-29] MEDS ORDERED: MoRPHine SULFATE 2 MG/ML CARP IV STA (22:32)
[2020-05-29] MEDS ORDERED: MoRPHine SULFATE 2 MG/ML CARP ONE (22:34)
[2020-05-30 04:30] LABS: Basophils # (auto) 0.02 K/uL (0-0.2); Basophils % (auto) 0.2 %; Hematocrit (blood only) 38.2 % (37-47); Hemoglobin 12.1 g/dL (12.0-16.0); Immature Granulocytes # (auto) 0.01 K/uL (0.00-0.02); Immature Granulocytes % (auto) 0.1 %; Lymphocytes # (auto) 0.91 K/uL (1.2-3.4); Lymphocytes % (auto) 10.3 %; Mean Corpuscular Hemoglobin 29.9 pg (25-34); Mean Corpuscular Hgb Conc 31.7 g/dL (32-36); Mean Corpuscular Volume 94.3 fL (80-100); Mean Platelet Volume 9.3 fL (7.4-10.4); Monocytes # (auto) 0.86 K/uL (0.11-0.59); Monocytes % (auto) 9.8 %; Neutrophils # (auto) 7.02 K/uL (1.4-6.5); Neutrophils % (auto) 79.6 %; Platelet Count 364 K/uL (130-400); RDW Coefficient of Variation 16.2 % (11.5-14.5); RDW Standard Deviation 56.1 fL (36.4-46.3); Red Blood Count 4.05 M/uL (4.2-5.4); White Blood Count 8.82 K/uL (4.8-10.8)
[2020-05-30 04:42] LABS: INR 2.5 (0.9-1.1); Prothrombin Time 23.4 Seconds (9.0-12.0)
[2020-05-30 04:52] LABS: BUN Creatinine Ratio 20.1 (10-20); Blood Urea Nitrogen 32 mg/dl (7-18); Calcium 8.7 mg/dl (8.5-10.1); Carbon Dioxide 33 mmol/L (21-32); Chloride 105 mmol/L (98-107); Creatinine Clr Calc Pharmacy 34.6 ml/min; Est GFR (African American) 36.7; Est GFR (Non-African American) 31.6; Glucose 92 mg/dl (70-99); Magnesium 2.1 mg/dl (1.8-2.4); Potassium 3.7 mmol/L (3.5-5.1); Sodium 143 mmol/L (136-145)
[2020-05-30 04:57] LABS: Phosphorus 2.7 mg/dl (2.5-4.9); Troponin I < 0.015 ng/ml (0-0.045)
--- NOTE | 2020-05-30 05:52 | Electrocardiogram Report ---
Test Reason : Blood Pressure : / mmHG Vent. Rate : 085 BPM Atrial Rate : 085 BPM P-R Int : 134 ms QRS Dur : 080 ms QT Int : 372 ms P-R-T Axes : 033 055 042 degrees QTc Int : 442 ms Normal sinus rhythm Normal ECG When compared with ECG of 28-MAY-2020 14:54, No significant change was found Confirmed by Jose Antonio Jin ([id number]) on 05/30/2020 5:51:49 AM Referred By: REFERRED SELF Confirmed By:Jose Antonio Jin
[2020-05-30] MEDS: ALBUT/IPRATROP 3MG/0.5MG NEB 3 ML VIAL NEB SCH ×2 (06:58→19:24)
[2020-05-30] MEDS: UMECLIDINIUM/VILANTEROL 62.5/25MCG 7 PUFFS/INHALER INH SCH (07:35)
[2020-05-30] MEDS: POTASSIUM CHLORIDE CRTAB 20 MEQ TABCR PO SCH (07:36)
[2020-05-30] MEDS: FUROSEMIDE 40 MG in SYRINGE 0 ML IV SCH (07:36)
[2020-05-30] MEDS: FOLIC ACID 1 MG TAB PO SCH (07:36)
[2020-05-30] MEDS: PANTOprazole 40 MG TAB PO SCH ×2 (07:37→20:45)
[2020-05-30] MEDS: predniSONE 20 MG TAB PO SCH (07:37)
[2020-05-30] MEDS: ADVANCED PROBIOTIC 1250 MG CAPSULE PO SCH (07:37)
[2020-05-30] MEDS: CYANOCOBALAMIN (VITAMIN B-12) 100 MCG TABLET PO SCH (07:38)
[2020-05-30] MEDS: amLODIPine BESYLATE 5 MG TAB PO SCH (07:46)
[2020-05-30] MEDS: METOPROLOL SUCC 25MG EXT REL TAB PO SCH (07:46)
[2020-05-30] MEDS: INSULIN ASPART 100 UNITS/ML 3 ML PEN SC SCH ×4 (07:54→20:47)
[2020-05-30] MEDS: INSULIN GLARGINE SOLOSTAR 100 UNITS/ML 3 ML PEN SC SCH ×2 (07:55→20:46)
--- NOTE | 2020-05-30 10:07 | Pulmonology Progress Note ---
Date of Service May 30, 2020 Assessment & Plan (1) Pleural effusion: CT chest 05/29/2020 personally reviewed: Bilateral moderate to large pleural effusion, centrilobular emphysema, air trapping appreciated, atelectasis of bilateral lower lobes likely compression from the pleural effusion, cardiomegaly -- Bilateral pleural effusion Likely from underlying diastolic CHF as the patient stopped taking Lasix at home Dasatinib can also cause pleural effusion along with AML which the patient has Patient is not in respiratory distress, talking in full sentences, diuresing well on diuretics right now, no signs of any infection --> no indication for emergent thoracentesis Would continue with diuresis, hold warfarin --> start heparin or Lovenox once INR is less than 2 --> thoracentesis when INR is less than 1.7 if no immprovement Thoracentesis 03/02/2019 when 900 mm of sanguinous fluid aspirated. Lymphocytic. Cytology was negative for malignancy 2D echo 05/29/2020: EF 65-70%, mild concentric LVH, grade 1 diastolic dysfunction, RVSP 44 BNP 667 COVID-19, influenza A, influenza B negative 05/28/2020 Procalcitonin 0.25 --Acute on chronic hypoxic respiratory failure with underlying COPD Not in acute exacerbation, continue with inhaled therapy Continue with oxygen therapy, maintain O2 saturation between 88 to 92% Patient is on Wixela at home I would rather have the patient on Anoro on discharge --Pulmonary hypertension Likely combination type II and type III along on top of MARCO/OHS Treatment as above --Probable MARCO Mallampati 4, snoring at night BiPAP nightly Needs outpatient polysomnography --History of PE in May 2018 On Coumadin with supratherapeutic INR Plan: Aggressive diuresis to keep the patient negative balance BiPAP nightly and as needed shortness of breath Incentive spirometry Patient is not keen on having thoracentesis done. I would recommend continuing with aggressive diuresis. Pulmonary will follow peripherally. Continue monitoring with chest x-rays and monitor PT/INR. Please note the above document was generated using voice recognition software. It may contain grammatical, syntax or spelling errors.Any formal questions or concerns about the content, text or information contained within the body of this dictation should be directly addressed to the provider for clarification. (2) Acute and chronic respiratory failure with hypoxia: (3) COPD (chronic obstructive pulmonary disease): (4) ALL (acute lymphoblastic leukemia): (5) CKD (chronic kidney disease), stage III: Admission and Anticipated Discharge Date Admission Date: May 28, 2020 Review of Systems Review of Systems: All systems reviewed & are unremarkable except as noted in Subjective Physical Exam Physical Exam: Constitutional: No acute distress HEENT: EOMI, PERRLA Respiratory system: Decreased air entry bilaterally, more decreased on the left side, positive crackles bilateral lower lobes, no wheeze, no rhonchi CVS: S1-S2 positive, no murmurs or gallops Abdomen: Soft, nontender, nondistended, positive bowel sounds x4 Extremities: +2 pulses bilaterally radialis/ dorsalis pedis, no edema, no cyanosis Neuro: Awake alert oriented x3 Psych: Normal mood and affect G/U: Positive Winkler Skin: no rashes, warm and dry Lymphatic: no cervical or axillary lymphadenopathy Results & Data Results & Data ([facility]) Vital Signs (Past 12 Hours) Vital Signs Temp Pulse Pulse Resp BP BP Pulse Ox 05/30/20 07:30 77 05/30/20 06:58 73 18 91 05/30/20 03:21 37.4 C 79 21 148/69 H 92 05/29/20 23:13 37.2 C 86 20 152/70 H 94 05/29/20 22:31 94 H 134/66 05/29/20 22:17 93 H 22 152/69 H 91 05/30/20 03:58 05/30/20 03:57 PG Care Time/CCT Total # of Minutes Spent Total Time Spent with Patient: Total time spent is greater than 50% in coordination of care (as documented) at patient's floor/unit and/or counseling patient: Coding Level of Care Code 83638 Subseq Hosp Care Lvl 3 Diagnoses Pleural effusion J90 Acute and chronic respiratory failure with hypoxia J96.21 COPD (chronic obstructive pulmonary disease) J44.9 ALL (acute lymphoblastic leukemia) C91.00 CKD (chronic kidney disease), stage III N18.3
--- NOTE | 2020-05-30 12:05 | Hospitalist Progress Note ---
Date of Service May 30, 2020 Assessment & Plan (1) Acute and chronic respiratory failure with hypoxia: Presented with severe hypoxemia Acute pulmonary edema and is complicated by COPD Chest x-ray and very high BNP are compatible with CHF She has been receiving intravenous diuretics for acute pulmonary edema and has been improving Has been feeling much better She is back to her baseline and requiring 3 to 4 L of oxygen to maintain saturation as at home We will get PT and OT evaluation History of COPD Doubt any COPD exacerbation We will continue current home medications for COPD We will continue BiPAP as needed (2) Pleural effusion: Has bilateral pleural effusion likely secondary to acute on chronic diastolic CHF Dasatinib for ALL can cause pleural effusion-we will discuss with the oncologist Appreciate pulmonary input and recommendation We will continue current diuretics Possible thoracentesis when the INR is appropriate She is refusing thoracentesis Will check chest x-ray to see any improvement in the effusion Pulmonary signed off Acute on chronic diastolic CHF Will get updated echo: Mild concentric LVH, aortic valve sclerosis mild without significant stenosis, trace tricuspid regurgitation, estimated systolic pulmonary pressure is 44 mmHg, large left pleural effusion and grade 1 diastolic dysfunction We will need to back her on her usual dose of diuretics on discharge (3) Elevated troponin: Troponin: 0.05. EKG with nonspecific ST changes Trend troponin-has been improving and doubt any ACS Await updated echo (4) Pulmonary embolism: History pulmonary as embolism in 2019. On Coumadin INR: 2.8 Continue Coumadin We will hold Coumadin for now and will start intravenous heparin/Lovenox when INR is subtherapeutic and prepare the patient for thoracentesis down the line INR is still therapeutic and Coumadin on hold We will restart Coumadin if the patient does not want to go ahead with the thoracentesis (5) CKD (chronic kidney disease), stage III: Cr: 1.4. Baseline 1.2 Monitor renal function Avoid nephrotoxic agents when possible Her creatinine went up to 1.6 We will decrease the dose of furosemide and monitor PRP If creatinine is improving we will discharge home tomorrow (6) DM type 2 (diabetes mellitus, type 2): A1c 5.3 on 09/2019 Hold home insulin Basal bolus insulin per protocol (7) ALL (acute lymphoblastic leukemia): Diagnosed in 2019. follows with Dr[address] Nix Continue Sprycel-which can cause pleural effusion We will discuss with oncologist (8) Anemia: Chronic anemia. 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 She has been feeling much better since administration of diuretics Still has moderate shortness of breath but denies any chest pain and/or palpitation, has any fever and/or chills. 05/30/2020 The patient was seen and examined in the telemetry unit She has been feeling a lot better and she is back to her baseline She was not taking her diuretics at home as that was prescribed She denies any symptoms as of this morning Review of Systems Review of Systems: All systems reviewed and are unremarkable except as noted below Respiratory: + cough, + chest congestion, + dyspnea and + dyspnea on exertion Cardiovascular: + dyspnea at rest, + dyspnea on exertion and + palpitations Neurologic: Alert, awake and oriented x3 Physical Exam Physical Exam: Sitting at the edge of the bed without any distress Constitutional: average body habitus; not ill appearing Eyes: PERRL, conjunctivae normal, anicteric sclerae ENMT: external ear and nose normal, oropharynx normal Neck: trachea midline, no thyromegaly Respiratory: + respiratory distress and + labored breathing Auscultation: + crackles (Decreased breath sounds at the bases with crackles ) Cardiovascular: Rate/Rhythm: regular rate and regular rhythm Heart Sounds: no murmur Extremities: + edema (1+ edema bilaterally-has improved) Gastrointestinal (Abdomen): Inspection/Auscultation: normal bowel sounds; abdomen not distended Percussion/Palpation: abdomen soft; abdomen nontender Musculoskeletal: No acute arthritis in any joint Neurologic: Alert, awake and oriented x3. No focal sensory and motor deficit appreciated Psychiatric: A+Ox3, euthymic affect Lymphatic: no cervical or axillary lymphadenopathy Results & Data Results & Data ([facility]) Vital Signs (Past 12 Hours) Vital Signs Temp Pulse Pulse Resp BP BP Pulse Ox 05/30/20 11:01 36.9 C 75 20 146/67 H 92 05/30/20 07:48 36.8 C 91 H 20 174/64 H 90 05/30/20 07:30 77 05/30/20 06:58 73 18 91 05/30/20 03:21 37.4 C 79 21 148/69 H 92 Laboratory Results Short CBC 05/30/20 Range/Units 03:58 WBC 8.82 (4.8-10.8) K/uL Hgb 12.1 (12.0-16.0) g/dL Hct 38.2 (37-47) % Plt Count 364 (130-400) K/uL BMP 05/30/20 03:57 Sodium 143 Potassium 3.7 Chloride 105 Carbon Dioxide 33 H BUN 32 H D Creatinine 1.60 H D Glucose 92 Calcium 8.7 Cardiac Enzymes 05/29/20 05/30/20 05/30/20 Range/Units 22:27 03:57 10:12 Troponin I < 0.015 < 0.015 < 0.015 (0-0.045) ng/ml Medications Administered Current Inpatient Medications Acetaminophen (Acetaminophen 325 Mg Tab) 650 mg PO Q4H PRN PRN Reason: Pain or Fever Stop: 06/27/20 17:41 Last Admin: 05/29/20 21:58 Dose: 650 mg Documented by: Albuterol (Albut/Ipratrop 3mg/0.5mg Neb 3 Ml Vial) 3 ml NEB BIDR [facility] Stop: 06/28/20 18:59 Last Admin: 05/30/20 06:58 Dose: 3 ml Documented by: Amlodipine Besylate (Amlodipine Besylate 5 Mg Tab) 10 mg PO DAILY [facility] Stop: 06/28/20 08:59 Last Admin: 05/30/20 07:46 Dose: 10 mg Documented by: Atorvastatin Calcium (Atorvastatin 40 Mg Tab) 40 mg PO PM [facility] Stop: 06/27/20 20:59 Last Admin: 05/29/20 20:53 Dose: 40 mg Documented by: Cyanocobalamin (Cyanocobalamin (Vitamin B-12) 100 Mcg Tablet) 100 mcg PO DAILY [facility] Stop: 06/28/20 08:59 Last Admin: 05/30/20 07:38 Dose: 100 mcg Documented by: Dextrose (Dextrose 50% 50 Ml Syringe) 25 - 50 ml IV UD PRN; Protocol PRN Reason: Hypoglycemia Protocol Stop: 06/27/20 17:41 Folic Acid (Folic Acid 1 Mg Tab) 1 mg PO DAILY [facility] Stop: 06/28/20 08:59 Last Admin: 05/30/20 07:36 Dose: 1 mg Documented by: Glucagon (Glucagon For Inj 1 Mg Vial) 1 mg SQ UD PRN; Protocol PRN Reason: Hypoglycemia Protocol Stop: 06/27/20 17:41 Glucose (Glucose 10 Tabs/Tube) 4 - 8 tabs PO UD PRN; Protocol PRN Reason: Hypoglycemia Protocol Stop: 06/27/20 17:41 Glucose (Glucose 40% Gel 15 Gm Tube) 15 - 30 gm PO UD PRN; Protocol PRN Reason: Hypoglycemia Protocol Stop: 06/27/20 17:41 Ceftriaxone Sodium 2,000 mg/ (Dextrose) 70 mls @ 100 mls/hr IV Q24H [facility]; Protocol Stop: 06/04/20 17:59 Last Infusion: 05/29/20 18:14 Dose: Infused Documented by: Furosemide 40 mg/ Syringe 4 mls @ 4 mls/min IV DAILY [facility] Stop: 06/28/20 08:59 Last Admin: 05/30/20 07:36 Dose: 4 mls/min Documented by: Insulin Aspart (Insulin Aspart 100 Units/Ml 3 Ml Pen) 0 units SC ACHS [facility] Stop: 06/27/20 18:29 Last Admin: 05/30/20 07:54 Dose: 4 units Documented by: Insulin Glargine (Insulin Glargine Solostar 100 Units/Ml 3 Ml Pen) 0 - 10 units SC BID [facility]; Protocol Stop: 06/27/20 20:59 Last Admin: 05/30/20 07:55 Dose: Not Given Documented by: Lactobacillus Acidoph/Casei/Rhamnos (Advanced Probiotic 1250 Mg Capsule) 2 cap PO DAILY [facility] Stop: 06/28/20 08:59 Last Admin: 05/30/20 07:37 Dose: 2 cap Documented by: Metoprolol Succinate (Metoprolol Succ 25mg Ext Rel Tab) 25 mg PO DAILY [facility] Stop: 06/28/20 08:59 Last Admin: 05/30/20 07:46 Dose: 25 mg Documented by: Miscellaneous (Carbohydrates For Hypoglycemia ) 15 - 30 gm PO UD PRN PRN Reason: Hypoglycemia Protocol Stop: 06/27/20 17:41 Miscellaneous (Sprycel- Order Awaiting Action) 1 ea N/A QS [facility] Stop: 06/28/20 00:00 Last Admin: 05/29/20 08:53 Dose: Not Given Documented by: Nitroglycerin (Nitroglycerin Sl 0.4 Mg/Tab Tab) 0.4 mg SL UD PRN PRN Reason: Chest Pain Stop: 06/27/20 17:41 Last Admin: 05/29/20 22:23 Dose: 0.4 mg Documented by: Pantoprazole Sodium (Pantoprazole 40 Mg Tab) 40 mg PO BID [facility] Stop: 06/27/20 20:59 Last Admin: 05/30/20 07:37 Dose: 40 mg Documented by: Potassium Chloride (Potassium Chloride Crtab 20 Meq Tabcr) 20 meq PO DAILY [facility] Stop: 06/28/20 08:59 Last Admin: 05/30/20 07:36 Dose: 20 meq Documented by: Umeclidinium/Vilanterol (Umeclidinium/Vilanterol 62.5/25mcg 7 Puffs/Inhaler) 1 puffs INH DAILY [facility] Stop: 06/29/20 08:59 Last Admin: 05/30/20 07:35 Dose: 1 puffs Documented by: (1) Pulmonary embolism Pulmonary embolism type: saddle Chronicity: unspecified Acute cor pulmonale presence: without acute cor pulmonale Qualified Code(s): I26.92 - Saddle embolus of pulmonary artery without acute cor pulmonale (2) Anemia Anemia type: unspecified type Qualified Code(s): D64.9 - Anemia, unspecified
--- NOTE | 2020-05-30 13:05 | XRay Report ---
XR chest 2V PA/lateral HISTORY: 74 years-old Female CHF acute shortness of breath with congestive heart failure COMPARISON: Chest CT 05/29/2020, chest radiograph 05/28/2020 TECHNIQUE: Portable upright AP view of the chest FINDINGS: Cardiomegaly. Pulmonary vascular congestion with unchanged reticular opacities. No pneumothorax. Unch anged moderate pleural effusions with bibasilar consolidation. Calcified granuloma of the left lung b ase. Increased inspiration compared to prior. Surgical clips project over the upper abdomen. Degenera tive changes of the shoulders and spine. IMPRESSION: 1. Cardiomegaly and unchanged pulmonary edema. 2. Stable pleural effusions with bibasilar consolidation. ACT 112: Negative or not required by law. The above report was generated using voice recognition software. It may contain grammatical, syntax o r spelling errors. Electronically signed by: Aime Lynn M.D. 05/30/2020 1:04 PM
--- NOTE | 2020-05-30 13:24 | Electrocardiogram Report ---
Test Reason : Blood Pressure : / mmHG Vent. Rate : 095 BPM Atrial Rate : 095 BPM P-R Int : 120 ms QRS Dur : 074 ms QT Int : 308 ms P-R-T Axes : 041 029 003 degrees QTc Int : 387 ms Poor data quality, interpretation may be adversely affected Normal sinus rhythm Possible Left atrial enlargement Nonspecific ST and T wave abnormality Abnormal ECG When compared with ECG of 29-MAY-2020 06:28, Nonspecific T wave abnormality, worse in Inferior leads T wave inversion now evident in Anterior leads QT has shortened Confirmed by Raphael Shaw ([id number]) on 05/30/2020 1:24:29 PM Referred By: REFERRED SELF Confirmed By:Raphael Shaw
[2020-05-30] MEDS: guaiFENesin/DEXTROM SYRUP 200MG/20MG 10ML UDC PO PRN ×2 (14:48→20:46)
[2020-05-30] MEDS: cefTRIAXone SODIUM 2,000 MG in DEXTROSE 5% 50 ML IV SCH (17:36)
[2020-05-30] MEDS: ATORVASTATIN 40 MG TAB PO SCH (20:45)
[2020-05-31 06:43] LABS: BUN Creatinine Ratio 26.7 (10-20); Calcium 8.5 mg/dl (8.5-10.1); Creatinine Clr Calc Pharmacy 44.8 ml/min; Est GFR (African American) 49.9; Est GFR (Non-African American) 43.1; Magnesium 2.1 mg/dl (1.8-2.4); Phosphorus 2.9 mg/dl (2.5-4.9); Potassium 3.7 mmol/L (3.5-5.1)
[2020-05-31 06:52] LABS: INR 1.8 (0.9-1.1); Prothrombin Time 17.2 Seconds (9.0-12.0)
[2020-05-31] MEDS: ALBUT/IPRATROP 3MG/0.5MG NEB 3 ML VIAL NEB SCH ×2 (07:22→19:35)
[2020-05-31] MEDS: INSULIN ASPART 100 UNITS/ML 3 ML PEN SC SCH ×4 (08:36→20:26)
[2020-05-31] MEDS: PANTOprazole 40 MG TAB PO SCH ×2 (08:37→20:21)
[2020-05-31] MEDS: INSULIN GLARGINE SOLOSTAR 100 UNITS/ML 3 ML PEN SC SCH ×2 (08:37→20:26)
[2020-05-31] MEDS: UMECLIDINIUM/VILANTEROL 62.5/25MCG 7 PUFFS/INHALER INH SCH (08:37)
[2020-05-31] MEDS: FUROSEMIDE 40 MG in SYRINGE 0 ML IV SCH (08:41)
[2020-05-31] MEDS: METOPROLOL SUCC 25MG EXT REL TAB PO SCH (08:41)
[2020-05-31] MEDS: CYANOCOBALAMIN (VITAMIN B-12) 100 MCG TABLET PO SCH (08:42)
[2020-05-31] MEDS: amLODIPine BESYLATE 5 MG TAB PO SCH (08:42)
[2020-05-31] MEDS: ADVANCED PROBIOTIC 1250 MG CAPSULE PO SCH (08:42)
[2020-05-31] MEDS: FOLIC ACID 1 MG TAB PO SCH (08:42)
[2020-05-31] MEDS: guaiFENesin/DEXTROM SYRUP 200MG/20MG 10ML UDC PO PRN ×2 (08:42→21:15)
[2020-05-31] MEDS: POTASSIUM CHLORIDE CRTAB 20 MEQ TABCR PO SCH (08:43)
--- NOTE | 2020-05-31 13:21 | Hospitalist Progress Note ---
Date of Service May 31, 2020 Assessment & Plan (1) Acute and chronic respiratory failure with hypoxia: Presented with severe hypoxemia Acute pulmonary edema and is complicated by COPD Chest x-ray and very high BNP are compatible with CHF She has been receiving intravenous diuretics for acute pulmonary edema and has been improving Has been feeling much better She is back to her baseline and requiring 3 to 4 L of oxygen to maintain saturation as at home We will get PT and OT evaluation Feels lot better and is back to her baseline We will continue PT and OT evaluation and may need placement on discharge History of COPD Doubt any COPD exacerbation We will continue current home medications for COPD We will continue BiPAP as needed (2) Pleural effusion: Has bilateral pleural effusion likely secondary to acute on chronic diastolic CHF Dasatinib for ALL can cause pleural effusion-we will discuss with the oncologist Appreciate pulmonary input and recommendation We will continue current diuretics Possible thoracentesis when the INR is appropriate She is refusing thoracentesis Will check chest x-ray to see any improvement in the effusion Pulmonary signed off Still does not want to have any thoracentesis until the condition gets worse Acute on chronic diastolic CHF Will get updated echo: Mild concentric LVH, aortic valve sclerosis mild without significant stenosis, trace tricuspid regurgitation, estimated systolic pulmonary pressure is 44 mmHg, large left pleural effusion and grade 1 diastolic dysfunction We will need to back her on her usual dose of diuretics on discharge Repeat chest x-ray did not show any improvement of CHF but the patient is clinically much better (3) Elevated troponin: Troponin: 0.05. EKG with nonspecific ST changes Trend troponin-has been improving and doubt any ACS Await updated echo (4) Pulmonary embolism: History pulmonary as embolism in 2019. On Coumadin INR: 2.8 Continue Coumadin We will hold Coumadin for now and will start intravenous heparin/Lovenox when INR is subtherapeutic and prepare the patient for thoracentesis down the line INR is still therapeutic and Coumadin on hold We will restart Coumadin if the patient does not want to go ahead with the thoracentesis Will hold Coumadin today as she still may need thoracentesis INR is 1.8 today and is going to drop further tomorrow (5) CKD (chronic kidney disease), stage III: Cr: 1.4. Baseline 1.2 Monitor renal function Avoid nephrotoxic agents when possible Her creatinine went up to 1.6 We will decrease the dose of furosemide and monitor PRP If creatinine is improving we will discharge home tomorrow Renal function has improved with decreasing dose of Lasix (6) DM type 2 (diabetes mellitus, type 2): A1c 5.3 on 09/2019 Hold home insulin Basal bolus insulin per protocol (7) ALL (acute lymphoblastic leukemia): Diagnosed in 2019. follows with Dr. Boyd Sheppard Sprycel-which can cause pleural effusion We will discuss with oncologist (8) Anemia: Chronic anemia. 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 She has been feeling much better since administration of diuretics Still has moderate shortness of breath but denies any chest pain and/or palpitation, has any fever and/or chills. 05/30/2020 The patient was seen and examined in the telemetry unit She has been feeling a lot better and she is back to her baseline She was not taking her diuretics at home as that was prescribed She denies any symptoms as of this morning 05/31/2020 The patient was seen and examined in telemetry unit She has been feeling a lot better and is back to her baseline She does not want to have any paracentesis Denies any chest pain and/or palpitation, any nausea and or vomiting Review of Systems Review of Systems: All systems reviewed and are unremarkable except as noted below Respiratory: + cough, + chest congestion, + dyspnea and + dyspnea on exertion Cardiovascular: + dyspnea on exertion and + palpitations; no dyspnea at rest Neurologic: Alert, awake and oriented x3 Physical Exam Physical Exam: Lying in bed comfortably Constitutional: average body habitus; not ill appearing Eyes: PERRL, conjunctivae normal, anicteric sclerae ENMT: external ear and nose normal, oropharynx normal Neck: trachea midline, no thyromegaly Respiratory: + labored breathing; no respiratory distress Auscultation: + diminished lung sounds (At the bases) and + crackles (Decreased breath sounds at the bases with crackles ) Cardiovascular: Rate/Rhythm: regular rate and regular rhythm Heart Sounds: no murmur Extremities: no edema (1+ edema bilaterally-has improved) Gastrointestinal (Abdomen): Inspection/Auscultation: normal bowel sounds; abdomen not distended Percussion/Palpation: abdomen soft; abdomen nontender Musculoskeletal: No acute arthritis in any joint Neurologic: Alert, awake and oriented x3. No focal sensory and motor deficit appreciated Psychiatric: A+Ox3, euthymic affect Lymphatic: no cervical or axillary lymphadenopathy Results & Data Results & Data ([facility]) Vital Signs (Past 12 Hours) Vital Signs Temp Pulse Pulse Resp BP BP Pulse Ox 05/31/20 10:56 37.0 C 76 18 134/68 91 05/31/20 08:00 67 05/31/20 07:24 69 18 96 05/31/20 07:03 36.7 C 66 18 152/65 H 94 05/31/20 05:06 36.8 C 75 20 152/69 H 93 Laboratory Results [facility] 05/31/20 05:47 Sodium 144 Potassium 3.7 Chloride 108 H Carbon Dioxide 35 H BUN 33 H Creatinine 1.24 H D Glucose 89 Calcium 8.5 Medications Administered Current Inpatient Medications Acetaminophen (Acetaminophen 325 Mg Tab) 650 mg PO Q4H PRN PRN Reason: Pain or Fever Stop: 06/27/20 17:41 Last Admin: 05/29/20 21:58 Dose: 650 mg Documented by: Albuterol (Albut/Ipratrop 3mg/0.5mg Neb 3 Ml Vial) 3 ml NEB BIDR [facility] Stop: 06/28/20 18:59 Last Admin: 05/31/20 07:22 Dose: 3 ml Documented by: Amlodipine Besylate (Amlodipine Besylate 5 Mg Tab) 10 mg PO DAILY [facility] Stop: 06/28/20 08:59 Last Admin: 05/31/20 08:42 Dose: 10 mg Documented by: Atorvastatin Calcium (Atorvastatin 40 Mg Tab) 40 mg PO PM [facility] Stop: 06/27/20 20:59 Last Admin: 05/30/20 20:45 Dose: 40 mg Documented by: Cyanocobalamin (Cyanocobalamin (Vitamin B-12) 100 Mcg Tablet) 100 mcg PO DAILY [facility] Stop: 06/28/20 08:59 Last Admin: 05/31/20 08:42 Dose: 100 mcg Documented by: Dextrose (Dextrose 50% 50 Ml Syringe) 25 - 50 ml IV UD PRN; Protocol PRN Reason: Hypoglycemia Protocol Stop: 06/27/20 17:41 Folic Acid (Folic Acid 1 Mg Tab) 1 mg PO DAILY [facility] Stop: 06/28/20 08:59 Last Admin: 05/31/20 08:42 Dose: 1 mg Documented by: Glucagon (Glucagon For Inj 1 Mg Vial) 1 mg SQ UD PRN; Protocol PRN Reason: Hypoglycemia Protocol Stop: 06/27/20 17:41 Glucose (Glucose 10 Tabs/Tube) 4 - 8 tabs PO UD PRN; Protocol PRN Reason: Hypoglycemia Protocol Stop: 06/27/20 17:41 Glucose (Glucose 40% Gel 15 Gm Tube) 15 - 30 gm PO UD PRN; Protocol PRN Reason: Hypoglycemia Protocol Stop: 06/27/20 17:41 Guaifenesin/Dextromethorphan (Guaifenesin/Dextrom Syrup 200mg/20mg 10ml Udc) 10 ml PO Q6H PRN PRN Reason: Cough Stop: 06/29/20 13:48 Last Admin: 05/31/20 08:42 Dose: 10 ml Documented by: Ceftriaxone Sodium 2,000 mg/ (Dextrose) 70 mls @ 100 mls/hr IV Q24H [facility]; Protocol Stop: 06/04/20 17:59 Last Infusion: 05/30/20 18:43 Dose: Infused Documented by: Furosemide 40 mg/ Syringe 4 mls @ 4 mls/min IV DAILY [facility] Stop: 06/28/20 08:59 Last Admin: 05/31/20 08:41 Dose: 4 mls/min Documented by: Insulin Aspart (Insulin Aspart 100 Units/Ml 3 Ml Pen) 0 units SC ACHS [facility] Stop: 06/27/20 18:29 Last Admin: 05/31/20 12:36 Dose: Not Given Documented by: Insulin Glargine (Insulin Glargine Solostar 100 Units/Ml 3 Ml Pen) 0 - 10 units SC BID [facility]; Protocol Stop: 06/27/20 20:59 Last Admin: 05/31/20 08:37 Dose: Not Given Documented by: Lactobacillus Acidoph/Casei/Rhamnos (Advanced Probiotic 1250 Mg Capsule) 2 cap PO DAILY [facility] Stop: 06/28/20 08:59 Last Admin: 05/31/20 08:42 Dose: 2 cap Documented by: Metoprolol Succinate (Metoprolol Succ 25mg Ext Rel Tab) 25 mg PO DAILY [facility] Stop: 06/28/20 08:59 Last Admin: 05/31/20 08:41 Dose: 25 mg Documented by: Miscellaneous (Carbohydrates For Hypoglycemia ) 15 - 30 gm PO UD PRN PRN Reason: Hypoglycemia Protocol Stop: 06/27/20 17:41 Miscellaneous (Sprycel- Order Awaiting Action) 1 ea N/A QS [facility] Stop: 06/28/20 00:00 Last Admin: 05/29/20 08:53 Dose: Not Given Documented by: Nitroglycerin (Nitroglycerin Sl 0.4 Mg/Tab Tab) 0.4 mg SL UD PRN PRN Reason: Chest Pain Stop: 06/27/20 17:41 Last Admin: 05/29/20 22:23 Dose: 0.4 mg Documented by: Pantoprazole Sodium (Pantoprazole 40 Mg Tab) 40 mg PO BID [facility] Stop: 06/27/20 20:59 Last Admin: 05/31/20 08:37 Dose: 40 mg Documented by: Potassium Chloride (Potassium Chloride Crtab 20 Meq Tabcr) 20 meq PO DAILY [facility] Stop: 06/28/20 08:59 Last Admin: 05/31/20 08:43 Dose: 20 meq Documented by: Umeclidinium/Vilanterol (Umeclidinium/Vilanterol 62.5/25mcg 7 Puffs/Inhaler) 1 puffs INH DAILY [facility] Stop: 06/29/20 08:59 Last Admin: 05/31/20 08:37 Dose: 1 puffs Documented by: (1) Pulmonary embolism Pulmonary embolism type: saddle Chronicity: unspecified Acute cor pulmonale presence: without acute cor pulmonale Qualified Code(s): I26.92 - Saddle embolus of pulmonary artery without acute cor pulmonale (2) Anemia Anemia type: unspecified type Qualified Code(s): D64.9 - Anemia, unspecified
[2020-05-31] MEDS: cefTRIAXone SODIUM 2,000 MG in DEXTROSE 5% 50 ML IV SCH (17:29)
[2020-05-31] MEDS: ATORVASTATIN 40 MG TAB PO SCH (20:21)
[2020-06-01] MEDS: guaiFENesin/DEXTROM SYRUP 200MG/20MG 10ML UDC PO PRN (02:58)
[2020-06-01 06:05] LABS: INR 1.4 (0.9-1.1)
[2020-06-01 06:24] LABS: BUN Creatinine Ratio 22.1 (10-20); Calcium 8.7 mg/dl (8.5-10.1); Creatinine Clr Calc Pharmacy 45.4 ml/min; Est GFR (African American) 53.5; Est GFR (Non-African American) 46.2; Potassium 3.6 mmol/L (3.5-5.1)
[2020-06-01] MEDS: ALBUT/IPRATROP 3MG/0.5MG NEB 3 ML VIAL NEB SCH ×2 (07:14→19:06)
[2020-06-01] MEDS: UMECLIDINIUM/VILANTEROL 62.5/25MCG 7 PUFFS/INHALER INH SCH (09:36)
[2020-06-01] MEDS: INSULIN ASPART 100 UNITS/ML 3 ML PEN SC SCH ×4 (09:36→20:53)
[2020-06-01] MEDS: FUROSEMIDE 40 MG in SYRINGE 0 ML IV SCH (09:38)
[2020-06-01] MEDS: CYANOCOBALAMIN (VITAMIN B-12) 100 MCG TABLET PO SCH (09:38)
[2020-06-01] MEDS: INSULIN GLARGINE SOLOSTAR 100 UNITS/ML 3 ML PEN SC SCH ×2 (09:38→20:53)
[2020-06-01] MEDS: FOLIC ACID 1 MG TAB PO SCH (09:39)
[2020-06-01] MEDS: METOPROLOL SUCC 25MG EXT REL TAB PO SCH (09:39)
[2020-06-01] MEDS: PANTOprazole 40 MG TAB PO SCH ×2 (09:39→19:49)
[2020-06-01] MEDS: POTASSIUM CHLORIDE CRTAB 20 MEQ TABCR PO SCH (09:39)
[2020-06-01] MEDS: amLODIPine BESYLATE 5 MG TAB PO SCH (09:39)
[2020-06-01] MEDS: ADVANCED PROBIOTIC 1250 MG CAPSULE PO SCH (09:39)
--- NOTE | 2020-06-01 11:42 | Hospitalist Progress Note ---
Date of Service June 01, 2020 Assessment & Plan (1) Acute and chronic respiratory failure with hypoxia: Presented with severe hypoxemia Acute pulmonary edema and is complicated by COPD Chest x-ray and very high BNP are compatible with CHF She has been receiving intravenous diuretics for acute pulmonary edema and has been improving Has been feeling much better She is back to her baseline and requiring 3 to 4 L of oxygen to maintain saturation as at home We will get PT and OT evaluation Feels lot better and is back to her baseline We will continue PT and OT evaluation and may need placement on discharge Denies any shortness of breath at rest She wants to go home History of COPD Doubt any COPD exacerbation We will continue current home medications for COPD We will continue BiPAP as needed (2) Pleural effusion: Has bilateral pleural effusion likely secondary to acute on chronic diastolic CHF Dasatinib for ALL can cause pleural effusion-we will discuss with the oncologist Appreciate pulmonary input and recommendation We will continue current diuretics Possible thoracentesis when the INR is appropriate She is refusing thoracentesis Will check chest x-ray to see any improvement in the effusion Pulmonary signed off Still does not want to have any thoracentesis until the condition gets worse She refused thoracentesis again today Will restart Coumadin from this evening Acute on chronic diastolic CHF Will get updated echo: Mild concentric LVH, aortic valve sclerosis mild without significant stenosis, trace tricuspid regurgitation, estimated systolic pulmonary pressure is 44 mmHg, large left pleural effusion and grade 1 diastolic dysfunction We will need to back her on her usual dose of diuretics on discharge Repeat chest x-ray did not show any improvement of CHF but the patient is clinically much better Clinically better even though the x-ray is otherwise (3) Elevated troponin: Troponin: 0.05. EKG with nonspecific ST changes Trend troponin-has been improving and doubt any ACS Await updated echo (4) Pulmonary embolism: History pulmonary as embolism in 2019. On Coumadin INR: 2.8 Continue Coumadin We will hold Coumadin for now and will start intravenous heparin/Lovenox when INR is subtherapeutic and prepare the patient for thoracentesis down the line INR is still therapeutic and Coumadin on hold We will restart Coumadin if the patient does not want to go ahead with the thoracentesis Will hold Coumadin today as she still may need thoracentesis INR is 1.8 today and is going to drop further tomorrow INR is 1.4 today and will restart Coumadin (5) CKD (chronic kidney disease), stage III: Cr: 1.4. Baseline 1.2 Monitor renal function Avoid nephrotoxic agents when possible Her creatinine went up to 1.6 We will decrease the dose of furosemide and monitor PRP If creatinine is improving we will discharge home tomorrow Renal function has improved with decreasing dose of Lasix Renal function is improved with single dose of furosemide Will continue it for now and discharged on home doses of Furosemide (6) DM type 2 (diabetes mellitus, type 2): A1c 5.3 on 09/2019 Hold home insulin Basal bolus insulin per protocol (7) ALL (acute lymphoblastic leukemia): Diagnosed in 2019. follows with Dr[address] Nix Continue Sprycel-which can cause pleural effusion We will discuss with oncologist (8) Anemia: Chronic anemia. 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 She has been feeling much better since administration of diuretics Still has moderate shortness of breath but denies any chest pain and/or palpitation, has any fever and/or chills. 05/30/2020 The patient was seen and examined in the telemetry unit She has been feeling a lot better and she is back to her baseline She was not taking her diuretics at home as that was prescribed She denies any symptoms as of this morning 05/31/2020 The patient was seen and examined in telemetry unit She has been feeling a lot better and is back to her baseline She does not want to have any paracentesis Denies any chest pain and/or palpitation, any nausea and or vomiting 06/01/2020 The patient was seen and examined in telemetry unit She has been feeling a lot better and denies any shortness of breath at rest She refused to have thoracentesis Review of Systems Review of Systems: All systems reviewed and are unremarkable except as noted below Respiratory: + cough, + chest congestion, + dyspnea and + dyspnea on exertion Cardiovascular: + dyspnea on exertion and + palpitations; no dyspnea at rest Neurologic: Alert, awake and oriented x3 Physical Exam Physical Exam: Sitting at the edge of the bed without any acute distress Constitutional: average body habitus; not ill appearing Eyes: PERRL, conjunctivae normal, anicteric sclerae ENMT: external ear and nose normal, oropharynx normal Neck: trachea midline, no thyromegaly Respiratory: no respiratory distress Auscultation: + diminished lung sounds (At the bases) and + crackles (Decreased breath sounds at the bases with crackles ) Cardiovascular: Rate/Rhythm: regular rate and regular rhythm Heart Sounds: no murmur Extremities: no edema (1+ edema bilaterally-has improved) Gastrointestinal (Abdomen): Inspection/Auscultation: normal bowel sounds; abdomen not distended Percussion/Palpation: abdomen soft; abdomen nontender Musculoskeletal: No acute arthritis in any joint Psychiatric: A+Ox3, euthymic affect Lymphatic: no cervical or axillary lymphadenopathy Results & Data Results & Data ([facility]) Vital Signs (Past 12 Hours) Vital Signs Temp Pulse Pulse Resp BP Pulse Ox 06/01/20 07:41 36.8 C 76 19 156/71 H 91 06/01/20 07:14 71 18 94 06/01/20 07:00 71 06/01/20 03:00 37.2 C 68 20 163/76 H 94 Laboratory Results [facility] 06/01/20 05:24 Sodium 143 Potassium 3.6 Chloride 105 Carbon Dioxide 34 H BUN 26 H Creatinine 1.17 Glucose 105 H Calcium 8.7 Medications Administered Current Inpatient Medications Acetaminophen (Acetaminophen 325 Mg Tab) 650 mg PO Q4H PRN PRN Reason: Pain or Fever Stop: 06/27/20 17:41 Last Admin: 05/29/20 21:58 Dose: 650 mg Documented by: Albuterol (Albut/Ipratrop 3mg/0.5mg Neb 3 Ml Vial) 3 ml NEB BIDR [facility] Stop: 06/28/20 18:59 Last Admin: 06/01/20 07:14 Dose: 3 ml Documented by: Amlodipine Besylate (Amlodipine Besylate 5 Mg Tab) 10 mg PO DAILY [facility] Stop: 06/28/20 08:59 Last Admin: 06/01/20 09:39 Dose: 10 mg Documented by: Atorvastatin Calcium (Atorvastatin 40 Mg Tab) 40 mg PO PM [facility] Stop: 06/27/20 20:59 Last Admin: 05/31/20 20:21 Dose: 40 mg Documented by: Cyanocobalamin (Cyanocobalamin (Vitamin B-12) 100 Mcg Tablet) 100 mcg PO DAILY [facility] Stop: 06/28/20 08:59 Last Admin: 06/01/20 09:38 Dose: 100 mcg Documented by: Dextrose (Dextrose 50% 50 Ml Syringe) 25 - 50 ml IV UD PRN; Protocol PRN Reason: Hypoglycemia Protocol Stop: 06/27/20 17:41 Folic Acid (Folic Acid 1 Mg Tab) 1 mg PO DAILY [facility] Stop: 06/28/20 08:59 Last Admin: 06/01/20 09:39 Dose: 1 mg Documented by: Glucagon (Glucagon For Inj 1 Mg Vial) 1 mg SQ UD PRN; Protocol PRN Reason: Hypoglycemia Protocol Stop: 06/27/20 17:41 Glucose (Glucose 10 Tabs/Tube) 4 - 8 tabs PO UD PRN; Protocol PRN Reason: Hypoglycemia Protocol Stop: 06/27/20 17:41 Glucose (Glucose 40% Gel 15 Gm Tube) 15 - 30 gm PO UD PRN; Protocol PRN Reason: Hypoglycemia Protocol Stop: 06/27/20 17:41 Guaifenesin/Dextromethorphan (Guaifenesin/Dextrom Syrup 200mg/20mg 10ml Udc) 10 ml PO Q6H PRN PRN Reason: Cough Stop: 06/29/20 13:48 Last Admin: 06/01/20 02:58 Dose: 10 ml Documented by: Ceftriaxone Sodium 2,000 mg/ (Dextrose) 70 mls @ 100 mls/hr IV Q24H [facility]; Protocol Stop: 06/04/20 17:59 Last Infusion: 05/31/20 18:11 Dose: Infused Documented by: Furosemide 40 mg/ Syringe 4 mls @ 4 mls/min IV DAILY [facility] Stop: 06/28/20 08:59 Last Admin: 06/01/20 09:38 Dose: 4 mls/min Documented by: Insulin Aspart (Insulin Aspart 100 Units/Ml 3 Ml Pen) 0 units SC ACHS [facility] Stop: 06/27/20 18:29 Last Admin: 06/01/20 09:36 Dose: 6 units Documented by: Insulin Glargine (Insulin Glargine Solostar 100 Units/Ml 3 Ml Pen) 0 - 10 units SC BID [facility]; Protocol Stop: 06/27/20 20:59 Last Admin: 06/01/20 09:38 Dose: Not Given Documented by: Lactobacillus Acidoph/Casei/Rhamnos (Advanced Probiotic 1250 Mg Capsule) 2 cap PO DAILY [facility] Stop: 06/28/20 08:59 Last Admin: 06/01/20 09:39 Dose: 2 cap Documented by: Metoprolol Succinate (Metoprolol Succ 25mg Ext Rel Tab) 25 mg PO DAILY [facility] Stop: 06/28/20 08:59 Last Admin: 06/01/20 09:39 Dose: 25 mg Documented by: Miscellaneous (Carbohydrates For Hypoglycemia ) 15 - 30 gm PO UD PRN PRN Reason: Hypoglycemia Protocol Stop: 06/27/20 17:41 Miscellaneous (Sprycel- Order Awaiting Action) 1 ea N/A QS [facility] Stop: 06/28/20 00:00 Last Admin: 05/29/20 08:53 Dose: Not Given Documented by: Nitroglycerin (Nitroglycerin Sl 0.4 Mg/Tab Tab) 0.4 mg SL UD PRN PRN Reason: Chest Pain Stop: 06/27/20 17:41 Last Admin: 05/29/20 22:23 Dose: 0.4 mg Documented by: Pantoprazole Sodium (Pantoprazole 40 Mg Tab) 40 mg PO BID [facility] Stop: 06/27/20 20:59 Last Admin: 06/01/20 09:39 Dose: 40 mg Documented by: Potassium Chloride (Potassium Chloride Crtab 20 Meq Tabcr) 20 meq PO DAILY [facility] Stop: 06/28/20 08:59 Last Admin: 06/01/20 09:39 Dose: 20 meq Documented by: Umeclidinium/Vilanterol (Umeclidinium/Vilanterol 62.5/25mcg 7 Puffs/Inhaler) 1 puffs INH DAILY [facility] Stop: 06/29/20 08:59 Last Admin: 06/01/20 09:36 Dose: 1 puffs Documented by: (1) Pulmonary embolism Pulmonary embolism type: saddle Chronicity: unspecified Acute cor pulmonale presence: without acute cor pulmonale Qualified Code(s): I26.92 - Saddle embolus of pulmonary artery without acute cor pulmonale (2) Anemia Anemia type: unspecified type Qualified Code(s): D64.9 - Anemia, unspecified
[2020-06-01] MEDS ORDERED: WARFARIN SOD 5 MG TAB PO SCH (16:00)
[2020-06-01] MEDS: cefTRIAXone SODIUM 2,000 MG in DEXTROSE 5% 50 ML IV SCH (17:02)
[2020-06-01] MEDS: ATORVASTATIN 40 MG TAB PO SCH (19:49)
[2020-06-02 06:29] LABS: INR 1.3 (0.9-1.1); Prothrombin Time 12.7 Seconds (9.0-12.0)
[2020-06-02 06:49] LABS: BUN Creatinine Ratio 19.3 (10-20); Calcium 8.8 mg/dl (8.5-10.1); Creatinine Clr Calc Pharmacy 46.3 ml/min; Est GFR (African American) 55.2; Est GFR (Non-African American) 47.7; Potassium 3.5 mmol/L (3.5-5.1)
[2020-06-02] MEDS: ALBUT/IPRATROP 3MG/0.5MG NEB 3 ML VIAL NEB SCH (07:05)
[2020-06-02] MEDS: INSULIN ASPART 100 UNITS/ML 3 ML PEN SC SCH ×2 (08:01→12:01)
[2020-06-02] MEDS: INSULIN GLARGINE SOLOSTAR 100 UNITS/ML 3 ML PEN SC SCH (08:03)
[2020-06-02] MEDS: CYANOCOBALAMIN (VITAMIN B-12) 100 MCG TABLET PO SCH (08:03)
[2020-06-02] MEDS: METOPROLOL SUCC 25MG EXT REL TAB PO SCH (08:03)
[2020-06-02] MEDS: UMECLIDINIUM/VILANTEROL 62.5/25MCG 7 PUFFS/INHALER INH SCH (08:04)
[2020-06-02] MEDS: FOLIC ACID 1 MG TAB PO SCH (08:04)
[2020-06-02] MEDS: POTASSIUM CHLORIDE CRTAB 20 MEQ TABCR PO SCH (08:04)
[2020-06-02] MEDS: amLODIPine BESYLATE 5 MG TAB PO SCH (08:04)
[2020-06-02] MEDS: PANTOprazole 40 MG TAB PO SCH (08:04)
[2020-06-02] MEDS: ADVANCED PROBIOTIC 1250 MG CAPSULE PO SCH (08:06)
[2020-06-02] MEDS: FUROSEMIDE 40 MG in SYRINGE 0 ML IV SCH (09:27)
--- NOTE | 2020-06-02 10:59 | Hospitalist Progress Note ---
Date of Service June 02, 2020 Assessment & Plan (1) Acute and chronic respiratory failure with hypoxia: Presented with severe hypoxemia Acute pulmonary edema and is complicated by COPD Chest x-ray and very high BNP are compatible with CHF She has been receiving intravenous diuretics for acute pulmonary edema and has been improving Has been feeling much better She is back to her baseline and requiring 3 to 4 L of oxygen to maintain saturation as at home We will get PT and OT evaluation Feels lot better and is back to her baseline We will continue PT and OT evaluation and may need placement on discharge Remains stable and no shortness of breath at rest She will be discharged home this afternoon History of COPD Doubt any COPD exacerbation We will continue current home medications for COPD We will continue BiPAP as needed (2) Pleural effusion: Has bilateral pleural effusion likely secondary to acute on chronic diastolic CHF Dasatinib for ALL can cause pleural effusion-we will discuss with the oncologist Appreciate pulmonary input and recommendation We will continue current diuretics Possible thoracentesis when the INR is appropriate She is refusing thoracentesis Will check chest x-ray to see any improvement in the effusion Pulmonary signed off Still does not want to have any thoracentesis until the condition gets worse She refused thoracentesis again today Will restart Coumadin from this evening She refused to go for any thoracentesis Acute on chronic diastolic CHF Will get updated echo: Mild concentric LVH, aortic valve sclerosis mild without significant stenosis, trace tricuspid regurgitation, estimated systolic pulmonary pressure is 44 mmHg, large left pleural effusion and grade 1 diastolic dysfunction We will need to back her on her usual dose of diuretics on discharge Repeat chest x-ray did not show any improvement of CHF but the patient is clinically much better Clinically better even though the x-ray is otherwise She will be given her usual doses of Lasix on discharge (3) Elevated troponin: Troponin: 0.05. EKG with nonspecific ST changes Trend troponin-has been improving and doubt any ACS Await updated echo (4) Pulmonary embolism: History pulmonary as embolism in 2019. On Coumadin INR: 2.8 Continue Coumadin We will hold Coumadin for now and will start intravenous heparin/Lovenox when INR is subtherapeutic and prepare the patient for thoracentesis down the line INR is still therapeutic and Coumadin on hold We will restart Coumadin if the patient does not want to go ahead with the thoracentesis Will hold Coumadin today as she still may need thoracentesis INR is 1.8 today and is going to drop further tomorrow Her INR is 1.3 today and that she will be given her usual doses of Coumadin on discharge (5) CKD (chronic kidney disease), stage III: Cr: 1.4. Baseline 1.2 Monitor renal function Avoid nephrotoxic agents when possible Her creatinine went up to 1.6 We will decrease the dose of furosemide and monitor PRP If creatinine is improving we will discharge home tomorrow Renal function has improved with decreasing dose of Lasix Renal function is improved with single dose of furosemide Will continue it for now and discharged on home doses of Furosemide-renal function remains stable as on 06/02/2020 (6) DM type 2 (diabetes mellitus, type 2): A1c 5.3 on 09/2019 Hold home insulin Basal bolus insulin per protocol (7) ALL (acute lymphoblastic leukemia): Diagnosed in 2019. follows with Dr[address] Boyd Sheppard Sprycel-which can cause pleural effusion We will discuss with oncologist-she will continue with that medication to control her leukemia (8) Anemia: Chronic anemia. 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 She has been feeling much better since administration of diuretics Still has moderate shortness of breath but denies any chest pain and/or palpitation, has any fever and/or chills. 05/30/2020 The patient was seen and examined in the telemetry unit She has been feeling a lot better and she is back to her baseline She was not taking her diuretics at home as that was prescribed She denies any symptoms as of this morning 05/31/2020 The patient was seen and examined in telemetry unit She has been feeling a lot better and is back to her baseline She does not want to have any paracentesis Denies any chest pain and/or palpitation, any nausea and or vomiting 06/01/2020 The patient was seen and examined in telemetry unit She has been feeling a lot better and denies any shortness of breath at rest She refused to have thoracentesis 06/02/2020 The patient was seen and examined in telemetry unit She has been back to her baseline for the last 2 days She refused to have any thoracentesis She got the physical therapy and has been moving around in the room without any significant symptoms She will be discharged out of the hospital this afternoon Review of Systems Review of Systems: All systems reviewed and are unremarkable except as noted below Respiratory: + dyspnea on exertion; no cough, no chest congestion and no dyspnea Cardiovascular: + dyspnea on exertion; no dyspnea at rest and no palpitations Neurologic: Alert, awake and oriented x3 Physical Exam Physical Exam: Sitting at the edge of the bed without any acute distress Constitutional: average body habitus; not ill appearing Eyes: PERRL, conjunctivae normal, anicteric sclerae ENMT: external ear and nose normal, oropharynx normal Neck: trachea midline, no thyromegaly Respiratory: no respiratory distress Auscultation: + diminished lung sounds (At the bases) and + crackles (Decreased breath sounds at the bases with crackles ) Cardiovascular: Rate/Rhythm: regular rate and regular rhythm Heart Sounds: no murmur Extremities: no edema (1+ edema bilaterally-has improved) Gastrointestinal (Abdomen): Inspection/Auscultation: normal bowel sounds; abdomen not distended Percussion/Palpation: abdomen soft; abdomen nontender Musculoskeletal: No acute arthritis in any joint Neurologic: Alert, awake and oriented x3. No focal sensory and motor deficit appreciated Psychiatric: A+Ox3, euthymic affect Lymphatic: no cervical or axillary lymphadenopathy Results & Data Results & Data ([facility]) Vital Signs (Past 12 Hours) Vital Signs Temp Pulse Pulse Resp BP Pulse Ox 06/02/20 07:05 79 16 93 06/02/20 07:01 36.7 C 72 20 155/68 H 93 06/02/20 07:00 72 06/02/20 04:30 37 C 74 18 163/71 H 93 06/01/20 23:26 37.8 C H 66 20 131/61 91 Laboratory Results BMP 06/02/20 05:27 Sodium 142 Potassium 3.5 Chloride 103 Carbon Dioxide 33 H BUN 22 H Creatinine 1.14 Glucose 100 H Calcium 8.8 Medications Administered Current Inpatient Medications Acetaminophen (Acetaminophen 325 Mg Tab) 650 mg PO Q4H PRN PRN Reason: Pain or Fever Stop: 06/27/20 17:41 Last Admin: 05/29/20 21:58 Dose: 650 mg Documented by: Albuterol (Albut/Ipratrop 3mg/0.5mg Neb 3 Ml Vial) 3 ml NEB BIDR MOIRA Stop: 06/28/20 18:59 Last Admin: 06/02/20 07:05 Dose: 3 ml Documented by: Amlodipine Besylate (Amlodipine Besylate 5 Mg Tab) 10 mg PO DAILY MOIRA Stop: 06/28/20 08:59 Last Admin: 06/02/20 08:04 Dose: 10 mg Documented by: Atorvastatin Calcium (Atorvastatin 40 Mg Tab) 40 mg PO PM MOIRA Stop: 06/27/20 20:59 Last Admin: 06/01/20 19:49 Dose: 40 mg Documented by: Cyanocobalamin (Cyanocobalamin (Vitamin B-12) 100 Mcg Tablet) 100 mcg PO DAILY MOIRA Stop: 06/28/20 08:59 Last Admin: 06/02/20 08:03 Dose: 100 mcg Documented by: Dextrose (Dextrose 50% 50 Ml Syringe) 25 - 50 ml IV UD PRN; Protocol PRN Reason: Hypoglycemia Protocol Stop: 06/27/20 17:41 Folic Acid (Folic Acid 1 Mg Tab) 1 mg PO DAILY MOIRA Stop: 06/28/20 08:59 Last Admin: 06/02/20 08:04 Dose: 1 mg Documented by: Glucagon (Glucagon For Inj 1 Mg Vial) 1 mg SQ UD PRN; Protocol PRN Reason: Hypoglycemia Protocol Stop: 06/27/20 17:41 Glucose (Glucose 10 Tabs/Tube) 4 - 8 tabs PO UD PRN; Protocol PRN Reason: Hypoglycemia Protocol Stop: 06/27/20 17:41 Glucose (Glucose 40% Gel 15 Gm Tube) 15 - 30 gm PO UD PRN; Protocol PRN Reason: Hypoglycemia Protocol Stop: 06/27/20 17:41 Guaifenesin/Dextromethorphan (Guaifenesin/Dextrom Syrup 200mg/20mg 10ml Udc) 10 ml PO Q6H PRN PRN Reason: Cough Stop: 06/29/20 13:48 Last Admin: 06/01/20 02:58 Dose: 10 ml Documented by: Ceftriaxone Sodium 2,000 mg/ (Dextrose) 70 mls @ 100 mls/hr IV Q24H [facility]; Protocol Stop: 06/04/20 17:59 Last Infusion: 06/01/20 17:45 Dose: Infused Documented by: Furosemide 40 mg/ Syringe 4 mls @ 4 mls/min IV DAILY [facility] Stop: 06/28/20 08:59 Last Admin: 06/02/20 09:27 Dose: 4 mls/min Documented by: Insulin Aspart (Insulin Aspart 100 Units/Ml 3 Ml Pen) 0 units SC ACHS [facility] Stop: 06/27/20 18:29 Last Admin: 06/02/20 08:01 Dose: Not Given Documented by: Insulin Glargine (Insulin Glargine Solostar 100 Units/Ml 3 Ml Pen) 0 - 10 units SC BID [facility]; Protocol Stop: 06/27/20 20:59 Last Admin: 06/02/20 08:03 Dose: Not Given Documented by: Lactobacillus Acidoph/Casei/Rhamnos (Advanced Probiotic 1250 Mg Capsule) 2 cap PO DAILY [facility] Stop: 06/28/20 08:59 Last Admin: 06/02/20 08:06 Dose: 2 cap Documented by: Metoprolol Succinate (Metoprolol Succ 25mg Ext Rel Tab) 25 mg PO DAILY [facility] Stop: 06/28/20 08:59 Last Admin: 06/02/20 08:03 Dose: 25 mg Documented by: Miscellaneous (Carbohydrates For Hypoglycemia ) 15 - 30 gm PO UD PRN PRN Reason: Hypoglycemia Protocol Stop: 06/27/20 17:41 Miscellaneous (Sprycel- Order Awaiting Action) 1 ea N/A QS [facility] Stop: 06/28/20 00:00 Last Admin: 05/29/20 08:53 Dose: Not Given Documented by: Nitroglycerin (Nitroglycerin Sl 0.4 Mg/Tab Tab) 0.4 mg SL UD PRN PRN Reason: Chest Pain Stop: 06/27/20 17:41 Last Admin: 05/29/20 22:23 Dose: 0.4 mg Documented by: Pantoprazole Sodium (Pantoprazole 40 Mg Tab) 40 mg PO BID [facility] Stop: 06/27/20 20:59 Last Admin: 06/02/20 08:04 Dose: 40 mg Documented by: Potassium Chloride (Potassium Chloride Crtab 20 Meq Tabcr) 20 meq PO DAILY [facility] Stop: 06/28/20 08:59 Last Admin: 06/02/20 08:04 Dose: 20 meq Documented by: Umeclidinium/Vilanterol (Umeclidinium/Vilanterol 62.5/25mcg 7 Puffs/Inhaler) 1 puffs INH DAILY MO[facility]A Stop: 06/29/20 08:59 Last Admin: 06/02/20 08:04 Dose: 1 puffs Documented by: Warfarin Sodium (Warfarin Sod 5 Mg Tab) 5 mg PO DAILY@1600 [facility] Stop: 07/01/20 15:59 Last Admin: 06/01/20 16:53 Dose: 5 mg Documented by: (1) Pulmonary embolism Pulmonary embolism type: saddle Chronicity: unspecified Acute cor pulmonale presence: without acute cor pulmonale Qualified Code(s): I26.92 - Saddle embolus of pulmonary artery without acute cor pulmonale (2) Anemia Anemia type: unspecified type Qualified Code(s): D64.9 - Anemia, unspecified
[2020-06-02] MEDS ORDERED: ENOXAPARIN 80 MG/0.8 ML SYR SQ ONE (14:00)
[2020-06-02] MEDS ORDERED: WARFARIN SOD 5 MG TAB PO SCH (16:00)
[2020-06-02] MEDS ORDERED: WARFARIN SOD 7.5 MG TAB PO SCH (16:00)
--- NOTE | 2020-06-03 08:06 | Discharge Summary ---
Date of Service June 03, 2020 Admission HPI Per Admitting Provider Pt is 74 y/o F with PMH chronic hypoxic respiratory failure on 3 L O2, insulin dependent DM II, history of PE in 2019 continued on Coumadin, CKD III, ALL, HTN, dyslipidemia presented to ER with complaint of shortness of breath x1 week. Patient reports increasing SOB and increased cough over the past week. Reports chronic cough productive of white sputum at baseline however has had blood- tinged yellow sputum. Has been taking nebulizer treatments at home without relief. Is prescribed Bumex for lower extremity edema however patient reports does not take regularly as does not want to urinate often. Denies any fevers or chills. Denies any known COVID-19 exposures. Reports uses 3 pillows at baseline. Denies any noted increased orthopnea. Patient denies any noted lower extremity edema. It is reported upon EMS arrival today patient's oxygen saturations were 60% on 3 L O2 and she was given nebulizer treatment in route. In ER patient placed on BiPAP with improvement. Denies fever/chills, diaphoresis, N/V/D/C, SAUL, dizziness, syncope, vision changes, neck pain, CP, palpitations, cough, sore throat, choking, otalgia, rhinorrhea, abdominal pain, paresthesias, weakness, extremity weakness, rashes, urinary symptoms. Pt with h/o left-sided pleural effusion in past requiring hospitalization and thoracentesis in 2019. Initially was thought secondary to Sprycel which was discontinued however was restarted by oncology-Dr. Nix Admission Exam Per Admitting Provider Physical Exam: General: Mild respiratory distress, on bipap, WDWN Head: normocephalic, atraumatic Eyes: PERRL, EOM's intact, right subconjunctival hemorrhage medial aspect of eye, left conjunctiva non-injected, anicteric ENT: normal inspection external ears, nose, mucous membranes moist Neck: supple, trachea midline Lungs: Currently on Bipap, respirations 22 and non-labored, 02 sat 95% and toleratingbipap well, diminished mid to base bilateral lungs, upper lung mercado without wheezing/rhonchi/rales CV: RRR, no murmur, no significant pretibial edema Abd: normal BS, soft, non-tender Ext: no cyanosis, no calf tenderness Neuro: A&O x 3, no focal deficits noted, normal affect Skin: warm, dry Principal Diagnosis Acute on chronic respiratory failure with hypoxia, acute pulmonary edema, chronic bilateral pleural effusion, history of pulmonary embolism on Coumadin, diabetes type 2, ALL LL Discharge Exam Constitutional average body habitus; not ill appearing Eyes PERRL, conjunctivae normal, anicteric sclerae ENMT external ear and nose normal, oropharynx normal Neck trachea midline, no thyromegaly Respiratory no respiratory distress Auscultation: + diminished lung sounds (At the bases) and + crackles (Decreased breath sounds at the bases with crackles ) Cardiovascular Rate/Rhythm: regular rate and regular rhythm Heart Sounds: no murmur Extremities: no edema (1+ edema bilaterally-has improved) Gastrointestinal (Abdomen) Inspection/Auscultation: normal bowel sounds; abdomen not distended Percussion/Palpation: abdomen soft; abdomen nontender Psychiatric A+Ox3, euthymic affect Lymphatic no cervical or axillary lymphadenopathy Discharge Data Allergies Allergy/AdvReac Type Severity Reaction Status Date / Time No Known Allergies Allergy Verified 05/28/20 17:13 Consultations 05/28/20 16:04 ED Decision to Admit Stat 05/28/20 17:42 Consult Case Management - Discharge Planning Routine 05/28/20 23:23 Consult Pulmonology Routine Ordered Studies 05/29/20 07:49 CT chest diagnostic wo con Routine Hospital Course (1) Acute and chronic respiratory failure with hypoxia: Presented with severe hypoxemia Acute pulmonary edema and is complicated by COPD Chest x-ray and very high BNP are compatible with CHF She has been receiving intravenous diuretics for acute pulmonary edema and has been improving Has been feeling much better She is back to her baseline and requiring 3 to 4 L of oxygen to maintain saturation as at home We will get PT and OT evaluation Feels lot better and is back to her baseline We will continue PT and OT evaluation and may need placement on discharge Remains stable and no shortness of breath at rest She will be discharged home this afternoon History of COPD Doubt any COPD exacerbation We will continue current home medications for COPD We will continue BiPAP as needed (2) Pleural effusion: Has bilateral pleural effusion likely secondary to acute on chronic diastolic CHF Dasatinib for ALL can cause pleural effusion-we will discuss with the oncologist Appreciate pulmonary input and recommendation We will continue current diuretics Possible thoracentesis when the INR is appropriate She is refusing thoracentesis Will check chest x-ray to see any improvement in the effusion Pulmonary signed off Still does not want to have any thoracentesis until the condition gets worse She refused thoracentesis again today Will restart Coumadin from this evening She refused to go for any thoracentesis Acute on chronic diastolic CHF Will get updated echo: Mild concentric LVH, aortic valve sclerosis mild without significant stenosis, trace tricuspid regurgitation, estimated systolic pulmonary pressure is 44 mmHg, large left pleural effusion and grade 1 diastolic dysfunction We will need to back her on her usual dose of diuretics on discharge Repeat chest x-ray did not show any improvement of CHF but the patient is clinically much better Clinically better even though the x-ray is otherwise She will be given her usual doses of Lasix on discharge (3) Elevated troponin: Troponin: 0.05. EKG with nonspecific ST changes Trend troponin-has been improving and doubt any ACS Await updated echo (4) Pulmonary embolism: History pulmonary as embolism in 2019. On Coumadin INR: 2.8 Continue Coumadin We will hold Coumadin for now and will start intravenous heparin/Lovenox when INR is subtherapeutic and prepare the patient for thoracentesis down the line INR is still therapeutic and Coumadin on hold We will restart Coumadin if the patient does not want to go ahead with the thoracentesis Will hold Coumadin today as she still may need thoracentesis INR is 1.8 today and is going to drop further tomorrow Her INR is 1.3 today and that she will be given her usual doses of Coumadin on discharge (5) CKD (chronic kidney disease), stage III: Cr: 1.4. Baseline 1.2 Monitor renal function Avoid nephrotoxic agents when possible Her creatinine went up to 1.6 We will decrease the dose of furosemide and monitor PRP If creatinine is improving we will discharge home tomorrow Renal function has improved with decreasing dose of Lasix Renal function is improved with single dose of furosemide Will continue it for now and discharged on home doses of Furosemide-renal function remains stable as on 06/02/2020 (6) DM type 2 (diabetes mellitus, type 2): A1c 5.3 on 09/2019 Hold home insulin Basal bolus insulin per protocol (7) ALL (acute lymphoblastic leukemia): Diagnosed in 2019. follows with Dr[address] Boyd Sheppard Sprycel-which can cause pleural effusion We will discuss with oncologist-she will continue with that medication to control her leukemia (8) Anemia: Chronic anemia. Hemoglobin at baseline (9) Hypertension: Continue amlodipine, metoprolol (10) Dyslipidemia: Continue atorvastatin DVT Prophylaxis -On Coumadin Likely discharge on Tuesday Total Time Total Time Spent Total Time Spent (In Minutes): 35 minutes Total Time Includes: Examination of the Patient, Discharge Planning, Medication Reconciliation and Communication With Other Providers Discharge Plan Discharge Items Patient Disposition: Home - Home Health Services Reason For Visit: SOB Discharge Diagnosis: Acute on chronic respiratory failure with hypoxia, acute pulmonary edema, chronic bilateral pleural effusion, history of pulmonary embolism on Coumadin, diabetes type 2, ALL LL Condition on Discharge: Good Activity: Resume your previous activity Non-emergency contact: Primary Care Provider Call non-emergency contact if: you have any medication questions and your symptoms worsen Follow-up/Referrals: Natalia Brambila DO [Primary Care Provider] - (Date & Time 06/06/2020 11:10 AM Provider Natalia Brambila DO Department [facility] ) Diet: Carb Consistent or DM2 and Heart Healthy Addtl Attending Provider Instructions: Please take precaution to avoid falls Continue with your oxygen regularly Take your Lasix as advised Have regular follow-up with coagulation clinic to maintain your INR between 2-3 Pending Studies at Discharge: No Stand-Alone Forms: My [employer], Smoking Cessation Medications and DC Order Prescriptions: New Anoro Ellipta 62.5-25 mcg/actuation Blister With Device 1 puff inhalation DAILY 30 Days Qty: 1 RF: 0 Continued tramadol 50 mg Tablet 50 mg PO Q6H PRN (Reason: Pain) RF: 0 Levemir FlexTouch U-100 Insuln 100 unit/mL (3 mL) Insulin Pen 6 units SUBCUT QPM RF: 0 Sprycel 70 mg Tablet 70 mg PO BID RF: 0 acetaminophen [Mapap (acetaminophen)] 325 mg Tablet 650 mg PO Q4H PRN (Reason: fever or pain) Qty: 100 RF: 0 ipratropium-albuterol 0.5 mg-3 mg(2.5 mg base)/3 mL Solution For Nebulization 3 ml INHALATION BID RF: 0 lorazepam 0.5 mg Tablet 0.5 mg SUBLINGUAL BID PRN (Reason: Anxiety) RF: 0 metoprolol succinate 25 mg Tablet Extended Release 24 Hr 25 mg PO DAILY RF: 0 atorvastatin 40 mg Tablet 40 mg PO PM RF: 0 bumetanide 1 mg Tablet 1 mg PO DAILY RF: 0 Levemir FlexTouch U-100 Insuln 100 unit/mL (3 mL) Insulin Pen 14 unit subcut QAM RF: 0 potassium chloride 20 mEq Tablet Extended Release 20 meq PO DAILY RF: 0 warfarin 5 mg Tablet 5 mg PO DIRECTED RF: 0 Probiotic 10 billion cell Capsule 10,000 mmu cells PO DAILY RF: 0 amlodipine 5 mg tablet 10 mg PO DAILY RF: 0 omeprazole 20 mg Capsule,Delayed Release(Dr/Ec) 20 mg PO BID RF: 0 cyanocobalamin (vitamin B-12) 100 mcg Tablet 100 mcg PO DAILY RF: 0 folic acid 1 mg Tablet 1 mg PO DAILY RF: 0 Discontinued fluticasone propion-salmeterol [Wixela Inhub] 250-50 mcg/dose blister with device 1 inh INHALATION BID RF: 0 Discharge Orders: Discharge Order (Routine); Ordered 06/02/20 Ordered By: Munir Shields Admission Data Admit Date/Time: 05/28/20 16:49 Attending Provider: Munir Shields Admit Provider: Angy Fontaine Primary Care Provider: Natalia Brambila Other Providers: Angy Fontaine ; Antonio Guillaume Other Interventions: Discharge Summary Assessment (RN) Last Done: 06/02/20 12:12
== END 2020-06-02 15:12 | disposition home health service (06) | DRG 189 ==
LOC: ED 14:46 → SUATTDRO 16:49 → 2S 16:49

== ENCOUNTER 2020-10-17 15:42 | Inpatient (IN) ==
[2020-10-17] MEDS ORDERED: ALBUT/IPRATROP 3MG/0.5MG NEB 3 ML VIAL INH STA (16:37)
[2020-10-17] MEDS ORDERED: methylPREDNISolone 125 MG/2 ML VIAL IV STA (16:37)
--- NOTE | 2020-10-17 16:44 | Emergency Department Note ---
History of Present Illness General Chief complaint: Shortness of Breath/Dyspnea Time Seen by Provider: 10/17/20 16:28 Source: patient History of Present Illness Provider complaint: Shortness of breath Onset (ago): hour(s) Location: chest Pain Consistency: + constant Quality: + other (Wheezing and short of breath) Relieved By: + medication (Nebulizer) Associated symptoms: no chest pain, no cough, no fever/chills, no headaches, no malaise and no nausea/vomiting This is a 74-year-old female with a history of COPD and asthma presenting with shortness of breath since this morning. She states that she has been wheezing. She denies any associated chest discomfort or pain. She states that it is slightly better when she uses her nebulizer this morning. She is on 3 L of oxygen constantly for her COPD. She has had no fever, cough or cold symptoms, abdominal pain, vomiting, diarrhea or urinary symptoms. She has noticed that her left leg is red and swollen over the past 3 days. She does have tenderness there as well. She is not sure if she is ever had a clot in her leg and is not sure she is on a blood thinner. Home Medications Medication Instructions Recorded Confirmed Type tramadol 50 mg PO Q6H PRN 04/05/18 10/17/20 History Sprycel 70 mg PO BID 06/12/18 10/17/20 History Levemir FlexTouch U-100 Insuln 20 unit SUBCUT AMPM 02/23/19 10/17/20 History atorvastatin 40 mg PO PM 02/23/19 10/17/20 History bumetanide 1 mg PO DAILY 02/23/19 10/17/20 History ipratropium-albuterol 3 ml INHALATION BID 02/23/19 10/17/20 History lorazepam 0.5 mg SUBLINGUAL BID PRN 02/23/19 10/17/20 History metoprolol succinate 25 mg PO DAILY 02/23/19 10/17/20 History potassium chloride 20 meq PO DAILY 02/23/19 10/17/20 History Probiotic 10,000 mmu cells PO DAILY 05/28/20 10/17/20 History amlodipine 10 mg PO DAILY 05/28/20 10/17/20 History cyanocobalamin (vitamin B-12) 100 mcg PO DAILY 05/28/20 10/17/20 History folic acid 1 mg PO DAILY 05/28/20 10/17/20 History omeprazole 20 mg PO BID 05/28/20 10/17/20 History warfarin 5 mg PO DIRECTED 05/28/20 10/17/20 History clindamycin HCl 300 mg PO QID 10/17/20 10/17/20 History doxycycline hyclate 100 mg PO BID 10/17/20 10/17/20 History escitalopram oxalate 10 mg PO DAILY 10/17/20 10/17/20 History triamcinolone acetonide 1 applic TOPICAL BID 10/17/20 10/17/20 History umeclidinium-vilanterol [Anoro 1 inh INHALATION DAILY 10/17/20 10/17/20 History Ellipta] Allergies Allergy/AdvReac Type Severity Reaction Status Date / Time No Known Allergies Allergy Verified 10/17/20 19:06 Past Med/Surg History Medical History (Updated 10/17/20 @ 19:56 by Dillon Mccollum MD) Acute hypoxemic respiratory failure ALL (acute lymphoblastic leukemia) Bacteremia Chronic respiratory failure CKD (chronic kidney disease), stage III COPD (chronic obstructive pulmonary disease) Depression Diabetes mellitus Diabetes mellitus, type II DM type 2 (diabetes mellitus, type 2) Dyslipidemia EKG abnormalities GERD (gastroesophageal reflux disease) GERD (gastroesophageal reflux disease) Hypertension Leg edema Lumbar disc disease Moderate COPD (chronic obstructive pulmonary disease) MRSA (methicillin resistant Staphylococcus aureus) septicemia Mucoid impaction of bronchi Nocturnal hypoxia Osteoarthritis Ovarian cyst Pulmonary embolism Secondary hyperparathyroidism Splenomegaly Tobacco use Surgical History H/O tubal ligation History of cholecystectomy Family History Denies family history of Coronary heart disease Social History Smoking Status: Unknown if ever smoked Tobacco Type: Cigarettes Hx Alcohol Use: No Hx Substance Use: No Preferred Language: Iraqi Communication Ability: Effective Visual Impairment: No Limitations Hearing Ability: Normal [place] [employer] Finder Required: No Beliefs That Will Affect Care: None marital status: / Current Living Situation: Alone Current Living Situation Comment: House Feels Safe at Home: Yes Assistive Devices: None Review of Systems See HPI for pertinent positives & negatives. and A total of 10 systems reviewed and were otherwise negative Physical Exam Vital Signs Vital Signs - 24 hr 10/17/20 15:45 10/17/20 15:51 10/17/20 16:12 Temperature 36.7 C Temperature Source Oral Pulse Rate 87 74 87 Pulse Rate [Apical] Pulse Rate from SpO2 Sensor 87 87 Pulse Rhythm Regular Pulse Rhythm [Apical] Pulse Strength Normal Pulse Strength [Apical] Respiratory Rate 34 H 22 22 Respiratory Effort / Characteristics Respiratory Depth Normal Respiratory Pattern Grunting Blood Pressure 143/46 H 146/64 H Blood Pressure [Right Arm] Blood Pressure Mean 78 91 Blood Pressure Mean [Right Arm] Blood Pressure Position [Right Arm] Pulse Oximetry 85 L 93 86 L Oxygen Delivery Method Room Air Nasal Cannula Oxygen Flow Rate 3 Sepsis Recent Fever Within 48 Hours No Sepsis New/Unexplained Change in Mental Status N/A Sepsis Action Taken by Nursing No Action Required 10/17/20 16:30 10/17/20 16:52 10/17/20 16:55 Temperature Temperature Source Pulse Rate 79 80 Pulse Rate [Apical] 75 80 Pulse Rate from SpO2 Sensor 80 Pulse Rhythm Regular Pulse Rhythm [Apical] Regular Pulse Strength Pulse Strength [Apical] Normal Respiratory Rate 24 25 H 26 H Respiratory Effort / Characteristics Non-Labored Spontaneous Grunting Labored Respiratory Depth Respiratory Pattern Blood Pressure Blood Pressure [Right Arm] 132/94 Blood Pressure Mean Blood Pressure Mean [Right Arm] 106 Blood Pressure Position [Right Arm] Sitting Pulse Oximetry 86 L 90 96 Oxygen Delivery Method Nasal Cannula Nebulizer Oxygen Flow Rate 3 Sepsis Recent Fever Within 48 Hours Sepsis New/Unexplained Change in Mental Status Sepsis Action Taken by Nursing 10/17/20 17:00 10/17/20 17:01 10/17/20 17:30 Temperature Temperature Source Pulse Rate 79 109 H 85 Pulse Rate [Apical] Pulse Rate from SpO2 Sensor 79 80 84 Pulse Rhythm Pulse Rhythm [Apical] Pulse Strength Pulse Strength [Apical] Respiratory Rate 24 25 H 24 Respiratory Effort / Characteristics Respiratory Depth Respiratory Pattern Blood Pressure 132/94 158/48 H Blood Pressure [Right Arm] Blood Pressure Mean 106 84 Blood Pressure Mean [Right Arm] Blood Pressure Position [Right Arm] Pulse Oximetry 94 94 96 Oxygen Delivery Method Oxygen Flow Rate Sepsis Recent Fever Within 48 Hours Sepsis New/Unexplained Change in Mental Status Sepsis Action Taken by Nursing 10/17/20 17:31 10/17/20 18:00 10/17/20 18:01 Temperature Temperature Source Pulse Rate 88 88 87 Pulse Rate [Apical] Pulse Rate from SpO2 Sensor 86 Pulse Rhythm Pulse Rhythm [Apical] Pulse Strength Pulse Strength [Apical] Respiratory Rate 24 31 H 29 H Respiratory Effort / Characteristics Respiratory Depth Respiratory Pattern Blood Pressure 151/49 H Blood Pressure [Right Arm] Blood Pressure Mean 83 Blood Pressure Mean [Right Arm] Blood Pressure Position [Right Arm] Pulse Oximetry 94 Oxygen Delivery Method Oxygen Flow Rate Sepsis Recent Fever Within 48 Hours Sepsis New/Unexplained Change in Mental Status Sepsis Action Taken by Nursing 10/17/20 18:35 10/17/20 18:36 10/17/20 19:00 Temperature Temperature Source Pulse Rate 92 H 90 87 Pulse Rate [Apical] Pulse Rate from SpO2 Sensor 90 87 Pulse Rhythm Pulse Rhythm [Apical] Pulse Strength Pulse Strength [Apical] Respiratory Rate 33 H 32 H Respiratory Effort / Characteristics Respiratory Depth Respiratory Pattern Blood Pressure 140/53 L 152/65 H Blood Pressure [Right Arm] Blood Pressure Mean 82 94 Blood Pressure Mean [Right Arm] Blood Pressure Position [Right Arm] Pulse Oximetry 86 L 94 Oxygen Delivery Method Oxygen Flow Rate Sepsis Recent Fever Within 48 Hours Sepsis New/Unexplained Change in Mental Status Sepsis Action Taken by Nursing Constitutional: Vital signs reviewed. O2 saturation is 89% on 3 L. Eyes: Pupils are equal round reactive to light. Conjunctiva are noninjected. ENT: Pharynx is clear without erythema or exudate. Mucous membranes are moist. Neck supple without meningeal signs. Respiratory: Poor air entry and wheezing bilaterally. Breath sounds are equal bilaterally. Cardiovascular: Regular rate and rhythm. No rubs or gallops. GI: Soft, nondistended and nontender. Bowel sounds are present. Musculoskeletal: Swelling to the left lower extremity with tenderness in the lower aspect of the leg where she has erythema and increased warmth. Normal distal pulses. Integumentary: No cyanosis. or jaundice. Neurological: The patient is awake and alert. No focal deficits. Psychiatric: Normal affect. Not anxious appearing. Course Administered Medications Discontinued Medications Albuterol (Albut/Ipratrop 3mg/0.5mg Neb 3 Ml Vial) 12 ml INH ONE STA Stop: 10/17/20 16:38 Last Admin: 10/17/20 16:52 Dose: 12 ml Documented by: [id number] Bumetanide 0.5 mg/ Syringe 2 mls @ 4 mls/min IV ONE ONE Stop: 10/17/20 17:58 Last Admin: 10/17/20 19:07 Dose: 4 mls/min Documented by: [id number] Piperacillin Sod/Tazobactam Sod (Zosyn) 4.5 gm in 120 mls @ 240 mls/hr IV NOW ONE Stop: 10/17/20 18:26 Last Admin: 10/17/20 18:45 Dose: 240 mls/hr Documented by: [id number] Methylprednisolone (Methylprednisolone 125 Mg/2 Ml Vial) 125 mg IV NOW STA Stop: 10/17/20 16:38 Last Admin: 10/17/20 16:56 Dose: 125 mg Documented by: [id number] Critical Care Time Critical Care Time: Yes Total Critical Care Time: 40 I have personally spent approximately 40 minutes of critical care time in the direct management of this patient. This includes bedside care, interpretation of diagnostic studies, and testing, discussion with consultants, patient, and family members, and other required patient management activities. These minutes are in excess of all separately billable procedures. Medical Decision Making Differential Diagnosis COPD exacerbation, hypoxia, COVID-19, pneumonia, pulmonary embolism, cellulitis, DVT Medical Records Attestation: I reviewed the patient's medical records. I did perform a limited focused review of portions of the patient's old chart on the electronic medical record. The patient was admitted to the hospital for acute on chronic respiratory failure in May of this year. She was noted at that time to have a history of PE and is on Coumadin. Home Medications Current Medication List: was personally reviewed by me Laboratory Data Attestation: I reviewed the patient's lab results. Result diagrams: 10/17/20 15:55 10/17/20 15:55 Lab Results 10/17/20 10/17/20 10/17/20 Range/Units 15:55 15:55 17:20 WBC 7.35 (4.8-10.8) K/uL RBC 3.17 L (4.2-5.4) M/uL Hgb 9.3 L (12.0-16.0) g/dL Hct 29.9 L (37-47) % MCV 94.3 (80-100) fL MCH 29.3 (25-34) pg MCHC 31.1 L (32-36) g/dL RDW Std Deviation 58.8 H (36.4-46.3) fL RDW Coeff of Yariel 17.3 H (11.5-14.5) % Plt Count 226 (130-400) K/uL MPV 8.8 (7.4-10.4) fL Immature Gran % (Auto) 0.1 % Neut % (Auto) 81.0 % Lymph % (Auto) 12.0 % [place] % (Auto) 5.7 % Eos % (Auto) 0.8 % Baso % (Auto) 0.4 % Neut # (Auto) 5.95 (1.4-6.5) K/uL Lymph # (Auto) 0.88 L (1.2-3.4) K/uL [place] # (Auto) 0.42 (0.11-0.59) K/uL Eos # (Auto) 0.06 (0-0.5) K/uL Baso # (Auto) 0.03 (0-0.2) K/uL Immature Gran # (Auto) 0.01 (0.00-0.02) K/uL PT INR APTT PTT Ratio Sodium 140 (136-145) mmol/L Potassium 3.1 L (3.5-5.1) mmol/L Chloride 102 (98-107) mmol/L Carbon Dioxide 34 H (21-32) mmol/L Anion Gap 4.0 (3-11) BUN 17 (7-18) mg/dl Creatinine 1.23 H (0.6-1.2) mg/dl Est Cr Clr Drug Dosing Not Reportable Est GFR ( Amer) 50.4 ml/min Est GFR (Non-Af Amer) 43.5 ml/min BUN/Creatinine Ratio 13.4 (10-20) Glucose 154 H (70-99) mg/dl Calcium 8.2 L (8.5-10.1) mg/dl Total Bilirubin 0.4 (0.2-1) mg/dl AST 39 H (15-37) U/L ALT 34 (12-78) U/L Alkaline Phosphatase 87 (45-117) U/L Troponin I 0.040 (0-0.045) ng/ml NT-Pro-B Natriuret Pep 1097 H (0-900) pg/ml Total Protein 5.6 L (6.4-8.2) gm/dl Albumin 2.8 L (3.4-5.0) gm/dl Globulin 2.8 (2.5-4.0) gm/dl Albumin/Globulin Ratio 1.0 (0.9-2) COVID-19 Eval Order Covid19 at [facility] SARS-CoV-2 (PCR) (Negative) 10/17/20 10/17/20 10/17/20 Range/Units 17:20 18:02 19:12 WBC (4.8-10.8) K/uL RBC (4.2-5.4) M/uL Hgb (12.0-16.0) g/dL Hct (37-47) % MCV (80-100) fL MCH (25-34) pg MCHC (32-36) g/dL RDW Std Deviation (36.4-46.3) fL RDW Coeff of Yariel (11.5-14.5) % Plt Count (130-400) K/uL MPV (7.4-10.4) fL Immature Gran % (Auto) % Neut % (Auto) % Lymph % (Auto) % [place] % (Auto) % Eos % (Auto) % Baso % (Auto) % Neut # (Auto) (1.4-6.5) K/uL Lymph # (Auto) (1.2-3.4) K/uL [place] # (Auto) (0.11-0.59) K/uL Eos # (Auto) (0-0.5) K/uL Baso # (Auto) (0-0.2) K/uL Immature Gran # (Auto) (0.00-0.02) K/uL PT Cancelled > 90.0 H INR Cancelled > 10.7 H* APTT Cancelled 107.5 H* PTT Ratio Cancelled 4.1 Sodium (136-145) mmol/L Potassium (3.5-5.1) mmol/L Chloride (98-107) mmol/L Carbon Dioxide (21-32) mmol/L Anion Gap (3-11) BUN (7-18) mg/dl Creatinine (0.6-1.2) mg/dl Est Cr Clr Drug Dosing Est GFR ( Amer) ml/min Est GFR (Non-Af Amer) ml/min BUN/Creatinine Ratio (10-20) Glucose (70-99) mg/dl Calcium (8.5-10.1) mg/dl Total Bilirubin (0.2-1) mg/dl AST (15-37) U/L ALT (12-78) U/L Alkaline Phosphatase (45-117) U/L Troponin I (0-0.045) ng/ml NT-Pro-B Natriuret Pep (0-900) pg/ml Total Protein (6.4-8.2) gm/dl Albumin (3.4-5.0) gm/dl Globulin (2.5-4.0) gm/dl Albumin/Globulin Ratio (0.9-2) COVID-19 Eval Order SARS-CoV-2 (PCR) NEGATIVE (Negative) Imaging Data Radiologist's Impression: Chest X-Ray 10/17/20 16:37 SINGLE VIEW CHEST CLINICAL HISTORY: Dyspnea. FINDINGS: An AP, portable, upright chest radiograph is compared to study dated 05/30/2020 and correlated with chest CT dated 05/29/2020. The heart is enlarged. There is pulmonary vascular congestion with evidence of congestive failure and interstitial edema. There are layering pleural effusions with bibasilar consolidation. No pneumothorax is seen. The skeletal structures are osteopenic. The bony thorax is grossly intact. IMPRESSION: 1. Cardiomegaly with evidence of congestive failure and interstitial edema. 2. Layering pleural effusions with bibasilar consolidation. ACT 112: Negative or not required by law. Electronically signed by: Aamir Herring M.D. 10/17/2020 4:50 PM Venous Doppler Study 10/17/20 16:37 ULTRASOUND LEFT LOWER EXTREMITY VENOUS CLINICAL HISTORY: Left leg pain. COMPARISON STUDY: Left lower extremity venous ultrasound dated 10/04/2018. TECHNIQUE: Real-time, grayscale, and color Doppler sonography of the deep veins of the left lower extremity was performed from the inguinal crease to the calf. Compression and augmentation were utilized. FINDINGS: There is no sonographic evidence of deep venous thrombosis identified in the left lower extremity. The common femoral, superficial femoral, and popliteal veins are patent and normally compressible. The greater saphenous vein and the profunda femoris vein at the junction with the common femoral vein are clear. The visualized calf veins are patent. IMPRESSION: There is no sonographic evidence of deep venous thrombosis identified in the left lower extremity. ACT 112: Negative or not required by law. Electronically signed by: Aamir Herring M.D. 10/17/2020 6:42 PM ECG Data Attestation: I personally reviewed and interpreted this ECG as follows: Indication: + SOB/dyspnea Rate (beats per minute): 76 ECG [employer]: + Normal ECG ST segments: + Nonspecific ST abnormalities; no ST elevation ECG Findings: + Other (Motion artifact in V6); no PVCs MDM Narrative I did evaluate the patient as noted above. She is presenting with hypoxemia and difficulty breathing. IV access was established. I did place an order for continuous cardiac monitoring. The monitor showed normal sinus rhythm at a rate of 80 bpm. I did order and personally review the patient's 12-lead EKG as described above. She has no acute ischemic changes. I did order and personally reviewed the images of the patient's chest x-ray as described above. She has bibasilar consolidation with effusions. I did order and review the patient's blood work as noted in the electronic medical record. Her white blood cell count is not elevated. She has chronic anemia with a hemoglobin of 9.3. P otassium is 3.1. Creatinine is 1.23. Troponin is within normal limits. BNP is elevated at 1000. INR came back greater than 10.7. I did treat her with 10 mg of vitamin K IV. Covid testing is negative. I did order a Doppler ultrasound of the left lower extremity. I did review the images myself as well as the radiology report as described above. There is no evidence of DVT. I did treat the patient with Bumex IV. She was also given an hour-long continuous DuoNeb. I also treated her with IV Solu-Medrol. On reassessment she states she is feeling much better. Her air entry is significantly improved but she has continued wheezing. I did recommend hospitalization for further care and e valuation. I did treat her with Zosyn IV for her pneumonia. Later the patient became more short of breath and tachypneic. She was placed on BiPAP after which she had significant improvement. She is resting comfortably on the stretcher. I did discuss the case with the hospitalist and community case manager. Impression & Plan Acute and chronic respiratory failure with hypoxia, Acute exacerbation of CHF (congestive heart failure), Acute exacerbation of chronic obstructive pulmonary disease, Chronic anemia, Bilateral pleural effusion, Multifocal pneumonia, Elevated serum creatinine, Cellulitis of left leg, Anticoagulated on Coumadin, Supratherapeutic INR Discharge Plan Visit Data Chief Complaint: Shortness of Breath/Dyspnea ED Provider: Dillon Mccollum Discharge Problem: Acute and chronic respiratory failure with hypoxia, Acute exacerbation of CHF (congestive heart failure), Acute exacerbation of chronic obstructive pulmonary disease, Chronic anemia, Bilateral pleural effusion, Multifocal pneumonia, Elevated serum creatinine, Cellulitis of left leg, Anticoagulated on Coumadin, Supratherapeutic INR Patient Disposition: Being Evaluated by Hospitalist Forms Stand Alone Forms: [facility] Prescriptions Prescriptions: No Action tramadol 50 mg Tablet 50 mg PO Q6H PRN (Reason: Pain) RF: 0 Sprycel 70 mg Tablet 70 mg PO BID RF: 0 ipratropium-albuterol 0.5 mg-3 mg(2.5 mg base)/3 mL Solution For Nebulization 3 ml INHALATION BID RF: 0 lorazepam 0.5 mg Tablet 0.5 mg SUBLINGUAL BID PRN (Reason: Anxiety) RF: 0 metoprolol succinate 25 mg Tablet Extended Release 24 Hr 25 mg PO DAILY RF: 0 atorvastatin 40 mg Tablet 40 mg PO PM RF: 0 bumetanide 1 mg Tablet 1 mg PO DAILY RF: 0 Levemir FlexTouch U-100 Insuln 100 unit/mL (3 mL) Insulin Pen 20 unit subcut AMPM RF: 0 potassium chloride 20 mEq Tablet Extended Release 20 meq PO DAILY RF: 0 warfarin 5 mg Tablet 5 mg PO DIRECTED RF: 0 Probiotic 10 billion cell Capsule 10,000 mmu cells PO DAILY RF: 0 amlodipine 5 mg tablet 10 mg PO DAILY RF: 0 omeprazole 20 mg Capsule,Delayed Release(Dr/Ec) 20 mg PO BID RF: 0 cyanocobalamin (vitamin B-12) 100 mcg Tablet 100 mcg PO DAILY RF: 0 folic acid 1 mg Tablet 1 mg PO DAILY RF: 0 doxycycline hyclate 100 mg capsule 100 mg PO BID RF: 0 clindamycin HCl 300 mg capsule 300 mg PO QID RF: 0 triamcinolone acetonide 0.1 % cream 1 applic TOPICAL BID RF: 0 escitalopram oxalate 10 mg tablet 10 mg PO DAILY RF: 0 Anoro Ellipta 62.5-25 mcg/actuation blister with device 1 inh INHALATION DAILY RF: 0 Referrals Referrals: Natalia Brambila DO [Primary Care Provider] -
[2020-10-17 16:52] LABS: Basophils # (auto) 0.03 K/uL (0-0.2); Basophils % (auto) 0.4 %; Eosinophils # (auto) 0.06 K/uL (0-0.5); Eosinophils % (auto) 0.8 %; Hematocrit (blood only) 29.9 % (37-47); Hemoglobin 9.3 g/dL (12.0-16.0); Immature Granulocytes # (auto) 0.01 K/uL (0.00-0.02); Immature Granulocytes % (auto) 0.1 %; Lymphocytes # (auto) 0.88 K/uL (1.2-3.4); Mean Corpuscular Hemoglobin 29.3 pg (25-34); Mean Corpuscular Hgb Conc 31.1 g/dL (32-36); Mean Corpuscular Volume 94.3 fL (80-100); Mean Platelet Volume 8.8 fL (7.4-10.4); Monocytes # (auto) 0.42 K/uL (0.11-0.59); Monocytes % (auto) 5.7 %; Neutrophils # (auto) 5.95 K/uL (1.4-6.5); Platelet Count 226 K/uL (130-400); RDW Coefficient of Variation 17.3 % (11.5-14.5); RDW Standard Deviation 58.8 fL (36.4-46.3); Red Blood Count 3.17 M/uL (4.2-5.4); White Blood Count 7.35 K/uL (4.8-10.8)
--- NOTE | 2020-10-17 16:52 | XRay Report ---
SINGLE VIEW CHEST CLINICAL HISTORY: Dyspnea. FINDINGS: An AP, portable, upright chest radiograph is compared to study dated 05/30/2020 and correlate d with chest CT dated 05/29/2020. The heart is enlarged. There is pulmonary vascular congestion with ev idence of congestive failure and interstitial edema. There are layering pleural effusions with bibasi lar consolidation. No pneumothorax is seen. The skeletal structures are osteopenic. The bony thorax i s grossly intact. IMPRESSION: 1. Cardiomegaly with evidence of congestive failure and interstitial edema. 2. Layering pleural effusions with bibasilar consolidation. ACT 112: Negative or not required by law. Electronically signed by: Aamir Herring M.D. 10/17/2020 4:50 PM
[2020-10-17 16:58] LABS: Alanine Aminotransferase 34 U/L (12-78); Albumin Level 2.8 gm/dl (3.4-5.0); Aspartate Aminotransferase 39 U/L (15-37); BUN Creatinine Ratio 13.4 (10-20); Blood Urea Nitrogen 17 mg/dl (7-18); Calcium 8.2 mg/dl (8.5-10.1); Carbon Dioxide 34 mmol/L (21-32); Chloride 102 mmol/L (98-107); Est GFR (African American) 50.4 ml/min; Est GFR (Non-African American) 43.5 ml/min; Glucose 154 mg/dl (70-99); Potassium 3.1 mmol/L (3.5-5.1); Sodium 140 mmol/L (136-145)
[2020-10-17 17:03] LABS: Alkaline Phosphatase 87 U/L (45-117); Bilirubin,Total 0.4 mg/dl (0.2-1); Globulin 2.8 gm/dl (2.5-4.0); NT Pro B Type Natriuretic Pept 1097 pg/ml (0-900); Total Protein 5.6 gm/dl (6.4-8.2)
[2020-10-17] MEDS ORDERED: PIPERACILL/TAZOBAC CONSULT ACTIVE PRN (17:57)
[2020-10-17] MEDS ORDERED: BUMETANIDE 0.5 MG in SYRINGE 0 ML IV ONE (17:57)
[2020-10-17] MEDS ORDERED: PIPERACILLIN/TAZOBACTAM 4.5 GM/120 ML BAG IV ONE (17:57)
--- NOTE | 2020-10-17 18:43 | Ultrasound Report ---
ULTRASOUND LEFT LOWER EXTREMITY VENOUS CLINICAL HISTORY: Left leg pain. COMPARISON STUDY: Left lower extremity venous ultrasound dated 10/04/2018. TECHNIQUE: Real-time, grayscale, and color Doppler sonography of the deep veins of the left lower ext remity was performed from the inguinal crease to the calf. Compression and augmentation were utilized . FINDINGS: There is no sonographic evidence of deep venous thrombosis identified in the left lower ext remity. The common femoral, superficial femoral, and popliteal veins are patent and normally compress ible. The greater saphenous vein and the profunda femoris vein at the junction with the common femora l vein are clear. The visualized calf veins are patent. IMPRESSION: There is no sonographic evidence of deep venous thrombosis identified in the left lower e xtremity. ACT 112: Negative or not required by law. Electronically signed by: Aamir Herring M.D. 10/17/2020 6:42 PM
[2020-10-17 19:44] LABS: Partial Thromboplastin Ratio 4.1
[2020-10-17 19:48] LABS: Prothrombin Time > 90.0 Seconds (9.0-12.0)
[2020-10-17 19:49] LABS: INR > 10.7 (0.9-1.1)
[2020-10-17 19:50] LABS: Partial Thromboplastin Time 107.5 Seconds (21.0-31.0)
[2020-10-17] MEDS ORDERED: PHYTONADIONE 10 MG in SODIUM CHLORIDE 0.9% 50 ML IV ONE (19:54)
[2020-10-17] MEDS ORDERED: PHYTONADIONE 10 MG/ML AMP ONE (20:09)
[2020-10-17] MEDS ORDERED: POTASSIUM CHLORIDE CRTAB 20 MEQ TABCR PO STA (20:15)
--- NOTE | 2020-10-17 22:03 | History and Physical Report ---
DATE OF ADMISSION: 10/17/2020 CHIEF COMPLAINT: Shortness of breath. HISTORY OF PRESENT ILLNESS: A 74-year-old female with past medical history significant for type 2 diabetes, hypertension, chronic kidney disease stage III, chronic respiratory failure, hyperlipidemia, COPD, nocturnal hypoxia, CAD, GERD, history of generalized osteoarthritis, ALL, thrombocytopenia, splenomegaly, psoriasis, history of pulmonary embolism, depression, who lives alone, ambulates without any support. Brother lives downstairs. Uses oxygen 3 L all the time. Comes because of shortness of breath for the last 3 days. She has some cough and she is bringing some blood in the cough and she also saw some nosebleed and also some blood in the stools. She was found to have elevated INR in the ER. She was requiring BiPAP in the ER. Currently on the BiPAP, she is resting comfortably. Denies any chest pain, no nausea, no abdominal pain, no headache, no blurred visions, no runny nose, no sore throat, no fevers, no abdominal pain. Normal bladder movements. Also has some infection in the left lower extremity, was recently started on clindamycin as outpatient. She says she took her COVID vaccine. ALLERGIES: No known drug allergies. PAST MEDICAL HISTORY: As mentioned above. PAST SURGICAL HISTORY: Laparoscopic cholecystectomy, ligation of oviducts. MEDICATIONS: The patient is on amlodipine 10 mg p.o. daily, atorvastatin 40 mg p.o. p.m. Bumex 1 mg p.o. daily, clindamycin 300 mg p.o. q.i.d., vitamin B12 100 mcg p.o. daily, doxycycline 100 mg p.o. b.i.d., Lexapro 10 mg p.o. daily, folic acid 1 mg p.o. daily, DuoNebs 3 mL inhalation b.i.d., Levemir 14 units in a.m. and 16 units at night time, lorazepam 0.5 mg sublingual b.i.d. p.r.n., metoprolol succinate 25 mg p.o. daily, omeprazole 20 mg p.o. b.i.d., potassium chloride 20 mEq p.o. daily, probiotic 1 capsule daily, Sprycel 70 mg p.o. b.i.d., tramadol 50 mg p.o. q. 6 hours p.r.n., triamcinolone application topical b.i.d., Anoro Ellipta one inhalation daily, Coumadin 5 mg as directed. FAMILY HISTORY: Significant for no family history on file. SOCIAL HISTORY: , lives alone. Her brother lives below the house. Quit smoking in 2013, smoked an average of 1 pack a day for 52 years. No alcohol use. No drug use. REVIEW OF SYSTEMS: As per HPI. Rest of the review of systems is negative. PHYSICAL EXAMINATION: GENERAL: The patient is of moderate build not in acute distress. VITAL SIGNS: Temperature 36.7, pulse 88, respiratory rate 23, blood pressure 152/65, oxygen 94% on BiPAP. HEENT: Pupils equal, round, and reactive to light. NECK: No JVD. No neck masses. CARDIOVASCULAR: S1 and S2 heard. Regular rate and rhythm. No murmur, no gallop. RESPIRATORY: Normal AP diameter. No accessory muscle use. Some diminished breath sounds in bibasilar crackles. ABDOMEN: Soft, bowel sounds present, nontender, no distention. CENTRAL NERVOUS SYSTEM: Cranial nerves II through XII are grossly intact, nonfocal. EXTREMITIES: Mild lower extremity pedal edema present. Left lower extremity is erythematous and warm to palpation. LABORATORY DATA: WBC 7.3, hemoglobin 9.3, hematocrit of 29.9, platelets 226. PT greater than 90, INR greater than 10.7, APTT 107.5. Sodium 140, potassium 3.1, chloride 102, bicarbonate 34, BUN 17, creatinine 1.2, serum glucose 154, calcium 8.2, total bilirubin 0.4, AST 39, ALT 34, alkaline phosphatase 87. Troponin I of 0.04. BNP 1097. SARS-CoV-2 PCR negative. IMAGING DATA: Venous Doppler of lower extremity, no DVT in the left lower extremity. Chest x-ray: Cardiomegaly with evidence of congestive failure, interstitial edema, pleural effusions and bibasilar consolidation. EKG: Normal sinus rhythm at a rate of 76, nonspecific ST-T wave abnormality, no significant change was found. ASSESSMENT AND PLAN: This is a 74-year-old female with history of chronic obstructive pulmonary disease, chronic respiratory failure on 3 L oxygen, and diastolic congestive heart failure, who presents with ongoing shortness of breath. 1. Cqjdr-ux-inwkbdi respiratory failure requiring BiPAP: Chronic obstructive pulmonary disease exacerbation, possible underlying pneumonia, and acute diastolic congestive heart failure and pleural effusions. The patient received steroids nebs in the ER, and also got a dose of Bumex and placed on BiPAP. Will continue the BiPAP. Placed her on nebs around the clock and p.r.n. IV Solu-Medrol 40 b.i.d.Zosyn and Doxycycline..Will give a dose of Lasix iv [address] on Lasix IV 40 b.i.d. and daily weights, I's and O's. We will get a CT chest and monitor. 2. Hemoptysis: Most likely secondary to elevated INR. Will do a CT chest and consult pulmonary in the a.m. 3. Elevated INR: Supratherapeutic INR of greater than 10.7. Received IV vitamin K 10 mg. Will hold the Coumadin. Follow PT/INR in the a.m. 4. Gastrointestinal bleed: She says she had some blood in the stool for the last 2-3 days. Hemoglobin is 9.3, it was 11-12 recently. We will follow H and H every 6 hours. Placed on IV Protonix 40 b.i.d. Blood consent obtained. INR is getting reversed. Consult GI in the a.m. for further recommendations. 5. Kvycn-en-ptkszhy diastolic congestive heart failure: Holding home Bumex. Placing her on Lasix 40 b.i.d. Continue home Toprol-XL. Follow echocardiogram. Cardiology consulted. 6. Pleural effusion: Will follow CT scan. Declined thoracocentesis last admission. 7. Left lower extremity cellulitis: Placed on , Zosyn and doxycycline. Will follow the response. 8. History of diabetes: Continue Levemir 10 units b.i.d., insulin sliding scale. Follow the blood sugar while the patient is on steroids. 9. Coronary artery disease: Continue statin, Toprol-XL. 10. History of acute lymphoblastic leukemia: On Sprycel. 11. Gastroesophageal reflux disease: On omeprazole. 12. Hypokalemia: Will replace. Follow the labs while the patient is getting IV Lasix. 13. Depression: Lexapro. 14. Hypertension: Continue amlodipine and Toprol-XL. Will monitor the blood pressure while the patient is on IV Lasix. 15. History of pulmonary embolism in 2019: On Coumadin. Currently INR is supratherapeutic. Getting vitamin K. Follow the PT/INR. If stable, may restart Coumadin when INR is subtherapeutic. 16. Chronic kidney disease stage III: Baseline creatinine around 1.2 to 1.4, currently with creatinine of 1.2. Will follow the labs while the patient is on IV Lasix. 17. Deep venous thrombosis prophylaxis: INR supratherapeutic. Will follow the PT/INR. DISPOSITION: Admit to tele floor. PT, OT prior to discharge. Social service to help with discharge planning. Code status, DNR/DNI as per my discussion with the patient. Job ID: [id number] [facility]
[2020-10-17] MEDS ORDERED: XOPENEX/ATROVENT 1.25mg/0.5MG NEB COMBO NEB PRN (23:54)
[2020-10-17] MEDS ORDERED: traMADol HCL 50 MG TABLET PO PRN (23:54)
[2020-10-17] MEDS ORDERED: ACETAMINOPHEN 325 MG TAB PO PRN (23:54)
[2020-10-17] MEDS ORDERED: LEVALBUTEROL 1.25MG/0.5ML NEB INH SCH (23:54)
[2020-10-17] MEDS ORDERED: LORazepam 0.5 MG TAB SL PRN (23:54)
[2020-10-17] MEDS ORDERED: FUROSEMIDE 40 MG/4 ML VIAL IV STA (23:54)
[2020-10-17] MEDS ORDERED: NITROGLYCERIN SL 0.4 MG/TAB TAB SL PRN (23:54)
[2020-10-17] MEDS ORDERED: IPRATROPIUM BROMIDE NEB SOLN 0.02% 2.5 ML VIAL INH SCH (23:54)
[2020-10-18] MEDS ORDERED: GLUCAGON FOR INJ 1 MG VIAL IM PRN (00:30)
[2020-10-18] MEDS ORDERED: GLUCOSE 40% GEL 15 GM TUBE PO PRN (00:30)
[2020-10-18] MEDS ORDERED: DEXTROSE 50% 50 ML SYRINGE IV PRN (00:30)
[2020-10-18] MEDS ORDERED: GLUCOSE 10 TABS/TUBE PO PRN (00:30)
[2020-10-18] MEDS ORDERED: CARBOHYDRATES FOR HYPOGLYCEMIA PO PRN (00:30)
[2020-10-18] MEDS ORDERED: XOPENEX/ATROVENT 1.25mg/0.5MG NEB COMBO NEB SCH (01:00)
[2020-10-18] MEDS: DOXYCYCLINE HYCLATE 100 MG CAP PO SCH ×3 (01:20→20:28)
[2020-10-18] MEDS: ATORVASTATIN 40 MG TAB PO SCH ×2 (01:20→20:27)
[2020-10-18] MEDS: TRIAMCINOLONE ACET 0.1% CR 15 GM TUBE TOP SCH ×3 (01:21→20:28)
[2020-10-18] MEDS: PANTOprazole 40 MG in SYRINGE 0 ML IV SCH ×3 (01:22→20:27)
[2020-10-18] MEDS: PIPERACILLIN/TAZOBACTAM 3.375 GM in DEXTROSE 5% 100 ML IV SCH ×3 (01:22→17:48)
[2020-10-18] MEDS: POTASSIUM CHLORIDE / WTR 10 MEQ/100 ML PLCT IV SCH ×2 (01:24→02:59)
[2020-10-18] MEDS: INSULIN DETEMIR FLEXPEN/FLEX TOUCH 100 UNITS/ML 3ML SC SCH ×3 (01:26→20:29)
[2020-10-18] MEDS: INSULIN ASPART 100 UNITS/ML 3 ML PEN SC SCH ×5 (01:27→20:29)
[2020-10-18] MEDS ORDERED: COUGH DROP (SUGAR FREE) LOZ 24 LOZ/1 BOX BUCCAL ONE (01:35)
[2020-10-18] MEDS: IPRATROPIUM BROMIDE NEB SOLN 0.02% 2.5 ML VIAL INH SCH ×4 (01:39→19:14)
[2020-10-18] MEDS: LEVALBUTEROL 1.25MG/0.5ML NEB INH SCH ×4 (01:39→19:14)
[2020-10-18] MEDS ORDERED: NURSING DECISION MEDICATION ONE (02:24)
[2020-10-18] MEDS ORDERED: COUGH DROP (SUGAR FREE) LOZ 24 LOZ/1 BOX BUCCAL PRN (02:36)
[2020-10-18 02:40] LABS: Appearance Urine Clear (Clear); Bacteria Urine Automated Negative (Negative); Bilirubin Urine Negative (Negative); Blood Urine Trace (Negative); Cast Urine Automated 0 /lpf (0-5); Color Urine Yellow; Epithelial Cell Urine Auto 0-5 /lpf (0-5); Glucose Urine UA 1+ (Negative); Ketones Urine Negative (Negative); Leukocyte Esterase Urine Negative (Negative); Nitrite Urine Negative (Negative); Protein Urine Negative (Negative); RBC Urine Automated 0-4 /hpf (0-4); Specific Gravity Urine 1.008 (1.000-1.030); Urobilinogen Urine Negative (Negative); WBC Urine Automated 0 /hpf (0-5)
[2020-10-18] MEDS ORDERED: methylPREDNISolone 40 MG in SYRINGE 0 ML IV SCH ×2 (06:00→09:00)
[2020-10-18 06:39] LABS: Hematocrit (blood only) 30.6 % (37-47); Hemoglobin 9.7 g/dL (12.0-16.0); Lymphocytes # (auto) 0.26 K/uL (1.2-3.4); Lymphocytes % (auto) 5.2 %; Mean Corpuscular Hgb Conc 31.7 g/dL (32-36); Mean Corpuscular Volume 91.6 fL (80-100); Monocytes # (auto) 0.15 K/uL (0.11-0.59); Neutrophils # (auto) 4.63 K/uL (1.4-6.5); Neutrophils % (auto) 91.8 %; Platelet Count 237 K/uL (130-400); RDW Coefficient of Variation 17.4 % (11.5-14.5); RDW Standard Deviation 56.2 fL (36.4-46.3); Red Blood Count 3.34 M/uL (4.2-5.4); White Blood Count 5.04 K/uL (4.8-10.8)
[2020-10-18 06:50] LABS: INR 1.7 (0.9-1.1); Prothrombin Time 16.4 Seconds (9.0-12.0)
--- NOTE | 2020-10-18 06:54 | CT Scan Report ---
CT chest diagnostic wo con CLINICAL HISTORY: hemoptysis COMPARISON STUDY: 06/08/2020, chest x-ray dated 10/17/2020 CT DOSE: 396.57 mGy.cm TECHNIQUE: CT of the thorax was performed from the thoracic inlet to the lung bases. Images are revi ewed in the axial, sagittal, and coronal planes. IV contrast was not administered for this examinatio n. A dose lowering technique was utilized adhering to the principles of ALARA. FINDINGS: Thyroid: Imaged portions of the thyroid gland are normal in appearance. Thoracic aorta: The thoracic aorta is normal in course and caliber, noting standard 3 vessel arch iam blaine. Heart: The heart is mildly enlarged. There are coronary artery calcifications. There is no significan t pericardial effusion Lungs and pleural spaces: There are persistent moderate to large bilateral pleural effusions. There i s lower lobe consolidative change with air bronchograms possibly on a compressive atelectatic basis. There are multifocal groundglass pulmonary opacities, pulmonary edema versus multifocal pneumonia. Mu ltifocal alveolar hemorrhage could also appear similar. Mediastinum: Mediastinal lymph nodes are the upper limits of normal in size Mari: There is no evidence of pathologic hilar adenopathy given the limitations of a noncontrast stud y Axilla: There is no evidence of pathologic axillary adenopathy Upper abdomen: Partially visualized upper abdominal viscera is within normal limits. Skeletal structures: There are no lytic or blastic osseous lesions. IMPRESSION: 1. Cardiomegaly and coronary artery calcifications 2. Persistent moderate to large bilateral pleural effusions 3. Lower lobe consolidative change with air bronchograms possibly on a compressive atelectatic basis 4. Multifocal groundglass pulmonary opacities, pulmonary edema versus a multifocal pneumonia. Multifo jagjit alveolar hemorrhage could also appear similar but is statistically less likely. Clinical and radi ographic follow-up recommended ACT 112: Negative or not required by law. Electronically signed by: James Concepcion M.D. 10/18/2020 6:53 AM
--- NOTE | 2020-10-18 06:56 | Hospitalist Progress Note ---
Date of Service October 18, 2020 Assessment & Plan (1) Acute exacerbation of CHF (congestive heart failure): (2) Acute exacerbation of chronic obstructive pulmonary disease: (3) Chronic anemia: (4) Bilateral pleural effusion: (5) Acute respiratory distress: (6) Hypoxia: (7) MARCO (obstructive sleep apnea): (8) Acute and chronic respiratory failure with hypoxia: (9) Diabetes mellitus: (10) DM type 2 (diabetes mellitus, type 2): (11) Hypertension: (12) Dyslipidemia: (13) CKD (chronic kidney disease), stage III: (14) GERD (gastroesophageal reflux disease): (15) ALL (acute lymphoblastic leukemia): (16) Splenomegaly: (17) Depression: (18) Tobacco use: (19) Supratherapeutic INR: ASSESSMENT AND PLAN: This is a 74-year-old female with history of chronic obstructive pulmonary disease, chronic respiratory failure on 3 L oxygen, and diastolic congestive heart failure, who presents with ongoing shortness of breath. 1. Xlodh-ah-iddljcd respiratory failure requiring BiPAP: Chronic obstructive pulmonary disease exacerbation, possible underlying pneumonia, and acute diastolic congestive heart failure and pleural effusions. The patient is also on steroid dosing, nebs in the ER, and also got a dose of Bumex and placed on BiPAP. Was on NC when I saw her this am. Placed her on nebs around the clock and p.r.n. IV Solu-Medrol 40 b.i.d., Lasix and daily weights, I's and O's. CT chest pending. 2. Hemoptysis: Most likely secondary to elevated INR. CT chest and consult p ulmonary. 3. Elevated INR: Supratherapeutic INR of greater than 10.7. Received IV vitamin K 10 mg. Will hold the Coumadin. Follow PT/INR in the a.m. 4. Gastrointestinal bleed: She says she had some blood in the stool for the last 2-3 days. Hemoglobin is 9.3, it was 11-12 recently. We will follow H and H every 6 hours. Placed on IV Protonix 40 b.i.d. Blood consent obtained. INR is getting reversed. Consult GI. 5. Ekigp-ix-yamobck diastolic congestive heart failure: Holding home Bumex. Placing her on Lasix 40 b.i.d. Continue home Toprol-XL. Follow echocardiogram. 6. Pleural effusion: CT scan. 7. Left lower extremity cellulitis: Zosyn and doxycycline. 8. History of diabetes: Continue Levemir 10 units b.i.d., insulin sliding scale. Follow the blood sugar while the patient is on steroids. 9. Coronary artery disease: Continue statin, Toprol-XL. 10. History of acute lymphoblastic leukemia: On Sprycel. 11. Gastroesophageal reflux disease: On omeprazole. 12. Hypokalemia: Will monitor 13. Depression: Lexapro. 14. Hypertension: Continue amlodipine and Toprol-XL. Will monitor the blood pressure while the patient is on IV Lasix. 15. History of pulmonary embolism in 2019: On Coumadin. Currently INR is supratherapeutic. Getting vitamin K. Follow the PT/INR. If stable, may restart Coumadin when INR is subtherapeutic. 16. Chronic kidney disease stage III: Baseline creatinine around 1.2 to 1.4, currently with creatinine of 1.2. Will follow the labs while the patient is on IV Lasix. 17. Deep venous thrombosis prophylaxis: INR supratherapeutic. Will follow the PT/INR. DISPOSITION: Tele. PT, OT prior to discharge. Social service to help with discharge planning. Code status, DNR/DNI as per my discussion with the patient. Labs Checked ROS-No Headache, No Visual Changes, No Nausea, No Vomiting, No Fever, No Chills, No Neck Pain or Stiffness, No Chest Pain, No Palpitations, + SOB, No LINARES, No Cough, No Sputum, + Wheezing, No Abdominal Pain, No Diarrhea, No Hematemesis, No Hemoptysis, No Unexpected Weight Loss, No Flank pain, No Melena, No Hematochezia, No Frequency, No Urgency, No Burning, No Hematuria, No Rashes, No Diaphoresis. Appetite is Normal Physical Exam Gen-AAO x 3, NAD, Afebrile, On NC Head-NCAT, EOMI, PERRLA, Anicteric Sclera, No Posterior Pharyngeal Erythema Neck-Supple, No JVD, No Thyromegaly, No Masses, No LAD, No Bruits Lungs-+ Wheezing, No Crepitus Chest-No S4, +S1, +S2, No S3, No Murmurs, No Rubs, No Gallops, No Ectopy Abdomen-Soft, Bowel Sounds Present, Non Tender, Non Distended, No Hepatomegaly, No Splenomegaly, No Palpable Masses, No Rebound, No Rigidity, No Guarding Musculoskeletal-Full Range of Motion Bilaterally, No CVAT Extremities-No Cyanosis, No Clubbing, No Edema Nuero-Cranial Nerves II-XII grossly intact, Motor WNL, DTRs WNL, Strength WNL, Non Focal Psych-Normal Mood Admission and Anticipated Discharge Date Admission Date: October 17, 2020 Results & Data Results & Data ([facility]) Vital Signs (Past 12 Hours) Vital Signs Temp Pulse Pulse Pulse Resp BP BP 10/18/20 03:37 36.8 C 78 20 138/69 10/18/20 01:42 80 22 10/17/20 23:45 36.3 C L 85 21 149/81 H 10/17/20 22:55 82 27 H 149/57 H 10/17/20 22:45 82 25 H 10/17/20 22:30 92 H 35 H 10/17/20 22:00 81 25 H 10/17/20 21:30 81 20 10/17/20 21:00 85 29 H 10/17/20 20:30 88 23 10/17/20 20:00 81 21 10/17/20 19:30 90 26 H 10/17/20 19:00 87 32 H 152/65 H 10/17/20 18:49 86 29 H Pulse Ox 10/18/20 03:37 90 10/18/20 01:42 92 10/17/20 23:45 90 10/17/20 22:55 89 L 10/17/20 22:45 90 10/17/20 22:30 89 L 10/17/20 22:00 10/17/20 21:30 10/17/20 21:00 10/17/20 20:30 10/17/20 20:00 10/17/20 19:30 95 10/17/20 19:00 94 10/17/20 18:49 93 (1) Acute exacerbation of CHF (congestive heart failure) Heart failure type: unspecified Qualified Code(s): I50.9 - Heart failure, unspecified
--- NOTE | 2020-10-18 07:00 | Cardiology Consultation ---
Date of Consultation October 18, 2020 Assessment & Plan (1) Acute and chronic respiratory failure with hypoxia: Patient is a complex 74-year-old female presents with multifactorial mixed respiratory failure. Patient with chronically O2 dependent obstructive lung disease chronic bilateral pleural effusions and past diastolic heart failure per records presents with gradual decline over several weeks with acute dyspnea over the past several days. Patient does complain of cough with hemoptysis Component of diastolic heart failure present but bilateral pleural effusions contributing. Infectious process not completely excluded with patient warm to touch and mildly productive cough. Agree with current plans for diuresis. INR has been reversed and patient may warrant thoracentesis to aid in clinical status. Pulmonology consulted Empiric antibiotic started blood cultures ordered We will review echocardiogram when available, no acute EKG changes or troponin elevation. BNP minimally elevated for age (2) Pleural effusion: (3) ALL (acute lymphoblastic leukemia): (4) Anemia: Findings reflect acute decline with hemoglobin on outpatient laboratory studies of 10/09/20 12.0 INR has been reversed this morning we will need to follow closely for signs of hemorrhage (5) Pulmonary embolism: History of Present Illness Reason for Consultation: Bilateral pleural effusions, congestive heart failure Requesting Physician: Dr. Guidry Attending Physician: Nicholas Gray DO History of Present Illness Patient is a complex 74-year-old female whose underlying issues include chronic obstructive lung disease O2 dependent, past pulmonary embolus on chronic anticoagulation, diastolic heart failure, chronic anemia/ALL. X-rays and chest CTs have demonstrated chronic bilateral pleural effusions dating back to May. Patient presents this admission by her description and review of outpatient records of feeling poorly for several weeks. Most recently has experienced symptoms of low-grade hemoptysis as well as mild rectal bleeding with INR supratherapeutic at presentation. She has been recommended to seek hospital care several days ago due to increasing edema and erythema of her feet. Ultimately presented last evening due to marked dyspnea and cough. Patient fair historian only. Notes no overt sputum production fevers or chills but warm to touch. Notes no syncope or near syncope. No chest pains or discomfort No prior history of myocardial infarction, angina or valvular heart disease. Past echocardiograms have demonstrated hyperdynamic LV systolic function Patient has received IV furosemide with mild diuresis since admission. Notes currently no acute distress but dyspneic with minimal movement Allergies Allergy/AdvReac Type Severity Reaction Status Date / Time No Known Allergies Allergy Verified 10/17/20 19:06 Home Medications Medication Instructions Recorded Confirmed Type tramadol 50 mg PO Q6H PRN 04/05/18 10/17/20 History Sprycel 70 mg PO BID 06/12/18 10/17/20 History Levemir FlexTouch U-100 Insuln 14 unit SUBCUT USEASDIRECTD 02/23/19 10/17/20 History atorvastatin 40 mg PO PM 02/23/19 10/17/20 History bumetanide 1 mg PO DAILY 02/23/19 10/17/20 History ipratropium-albuterol 3 ml INHALATION BID 02/23/19 10/17/20 History lorazepam 0.5 mg SUBLINGUAL BID PRN 02/23/19 10/17/20 History metoprolol succinate 25 mg PO DAILY 02/23/19 10/17/20 History potassium chloride 20 meq PO DAILY 02/23/19 10/17/20 History Probiotic 10,000 mmu cells PO DAILY 05/28/20 10/17/20 History amlodipine 10 mg PO DAILY 05/28/20 10/17/20 History cyanocobalamin (vitamin B-12) 100 mcg PO DAILY 05/28/20 10/17/20 History folic acid 1 mg PO DAILY 05/28/20 10/17/20 History omeprazole 20 mg PO BID 05/28/20 10/17/20 History warfarin 5 mg PO DIRECTED 05/28/20 10/17/20 History clindamycin HCl 300 mg PO QID 10/17/20 10/17/20 History doxycycline hyclate 100 mg PO BID 10/17/20 10/17/20 History escitalopram oxalate 10 mg PO DAILY 10/17/20 10/17/20 History triamcinolone acetonide 1 applic TOPICAL BID 10/17/20 10/17/20 History umeclidinium-vilanterol [Anoro 1 inh INHALATION DAILY 10/17/20 10/17/20 History Ellipta] Patient History Medical History Acute hypoxemic respiratory failure ALL (acute lymphoblastic leukemia) Bacteremia Chronic respiratory failure CKD (chronic kidney disease), stage III COPD (chronic obstructive pulmonary disease) Depression Diabetes mellitus Diabetes mellitus, type II DM type 2 (diabetes mellitus, type 2) Dyslipidemia EKG abnormalities GERD (gastroesophageal reflux disease) GERD (gastroesophageal reflux disease) Hypertension Leg edema Lumbar disc disease Moderate COPD (chronic obstructive pulmonary disease) MRSA (methicillin resistant Staphylococcus aureus) septicemia Mucoid impaction of bronchi Nocturnal hypoxia Osteoarthritis Ovarian cyst Pulmonary embolism Secondary hyperparathyroidism Splenomegaly Tobacco use Surgical History H/O tubal ligation History of cholecystectomy Family History Denies family history of Coronary heart disease Social History Smoking Status: Former smoker Tobacco Type: Cigarettes Hx Alcohol Use: No Hx Substance Use: No Preferred Language: Mohawk Communication Ability: Effective Visual Impairment: No Limitations Hearing Ability: Normal [employer] Developer Required: No Beliefs That Will Affect Care: None marital status: / Current Living Situation: Alone Current Living Situation Comment: House Other Information That Helps Us Care for You: No Feels Safe at Home: Yes Assistive Devices: Denture - Upper and Glasses Review of Systems Review of Systems: All systems reviewed & are unremarkable except as noted in HPI & below Physical Exam Constitutional: Chronically ill-appearing female in mild respiratory distress with movement Eyes: PERRL, conjunctivae normal, anicteric sclerae ENMT: external ear and nose normal, oropharynx normal Neck: trachea midline, no thyromegaly Respiratory: Scattered rales with markedly diminished breath sounds bilaterally Cardiovascular: Rate/Rhythm: regular rate and regular rhythm Heart Sounds: normal S1 and normal S2; no gallop and no murmur Palpation: normal PMI Vessels: normal carotid upstroke and radial pulses present; no JVD and no carotid bruit Extremities: + edema (1+ right greater than left) Gastrointestinal (Abdomen): normal bowel sounds, soft, nontender, no hepatosplenomegaly Musculoskeletal: no cyanosis or clubbing, extremities motor strength 5/5 Skin: no rashes, warm and dry Neurologic: PERRL, EOMI, accommodation nl, no face palsy, no dysarthria Psychiatric: Affect: + flat affect Results & Data ([facility]) Vital Signs (Past 12 Hours) Vital Signs Temp Pulse Pulse Pulse Resp BP BP 10/18/20 03:37 36.8 C 78 20 138/69 10/18/20 01:42 80 22 10/17/20 23:45 36.3 C L 85 21 149/81 H 10/17/20 22:55 82 27 H 149/57 H 10/17/20 22:45 82 25 H 10/17/20 22:30 92 H 35 H 10/17/20 22:00 81 25 H 10/17/20 21:30 81 20 10/17/20 21:00 85 29 H 10/17/20 20:30 88 23 10/17/20 20:00 81 21 10/17/20 19:30 90 26 H 10/17/20 19:00 87 32 H 152/65 H Pulse Ox 10/18/20 03:37 90 10/18/20 01:42 92 10/17/20 23:45 90 10/17/20 22:55 89 L 10/17/20 22:45 90 10/17/20 22:30 89 L 10/17/20 22:00 10/17/20 21:30 10/17/20 21:00 10/17/20 20:30 10/17/20 20:00 10/17/20 19:30 95 10/17/20 19:00 94 Laboratory Results Laboratory Results - last 24 hr 10/17/20 10/17/20 10/17/20 15:55 15:55 17:20 WBC 7.35 RBC 3.17 L Hgb 9.3 L Hct 29.9 L MCV 94.3 MCH 29.3 MCHC 31.1 L RDW Std Deviation 58.8 H RDW Coeff of Yariel 17.3 H Plt Count 226 MPV 8.8 Immature Gran % (Auto) 0.1 Neut % (Auto) 81.0 Lymph % (Auto) 12.0 [place] % (Auto) 5.7 Eos % (Auto) 0.8 Baso % (Auto) 0.4 Neut # (Auto) 5.95 Lymph # (Auto) 0.88 L [place] # (Auto) 0.42 Eos # (Auto) 0.06 Baso # (Auto) 0.03 Immature Gran # (Auto) 0.01 PT INR APTT PTT Ratio Sodium 140 Potassium 3.1 L Chloride 102 Carbon Dioxide 34 H Anion Gap 4.0 BUN 17 Creatinine 1.23 H Est Cr Clr Drug Dosing Not Reportable Est GFR ( Amer) 50.4 Est GFR (Non-Af Amer) 43.5 BUN/Creatinine Ratio 13.4 Glucose 154 H POC Glucose Estimat Average Glucose Hemoglobin A1c Calcium 8.2 L Magnesium Total Bilirubin 0.4 AST 39 H ALT 34 Alkaline Phosphatase 87 Troponin I 0.040 NT-Pro-B Natriuret Pep 1097 H Total Protein 5.6 L Albumin 2.8 L Globulin 2.8 Albumin/Globulin Ratio 1.0 Urine Color Urine Appearance Urine pH Ur Specific [place] Urine Protein Urine Glucose (UA) Urine Ketones Urine Blood Urine Nitrite Urine Bilirubin Urine Urobilinogen Ur Leukocyte Esterase Urine WBC (Auto) Urine RBC (Auto) U Hyaline Cast (Auto) U Epithel Cells (Auto) Urine Bacteria (Auto) COVID-19 Eval Order Covid19 at [facility] SARS-CoV-2 (PCR) 10/17/20 10/17/20 10/17/20 17:20 18:02 19:12 WBC RBC Hgb Hct MCV MCH MCHC RDW Std Deviation RDW Coeff of Yariel Plt Count MPV Immature Gran % (Auto) Neut % (Auto) Lymph % (Auto) [place] % (Auto) Eos % (Auto) Baso % (Auto) Neut # (Auto) Lymph # (Auto) [place] # (Auto) Eos # (Auto) Baso # (Auto) Immature Gran # (Auto) PT Cancelled > 90.0 H INR Cancelled > 10.7 H* APTT Cancelled 107.5 H* PTT Ratio Cancelled 4.1 Sodium Potassium Chloride Carbon Dioxide Anion Gap BUN Creatinine Est Cr Clr Drug Dosing Est GFR ( Amer) Est GFR (Non-Af Amer) BUN/Creatinine Ratio Glucose POC Glucose Estimat Average Glucose Hemoglobin A1c Calcium Magnesium Total Bilirubin AST ALT Alkaline Phosphatase Troponin I NT-Pro-B Natriuret Pep Total Protein Albumin Globulin Albumin/Globulin Ratio Urine Color Urine Appearance Urine pH Ur Specific [place] Urine Protein Urine Glucose (UA) Urine Ketones Urine Blood Urine Nitrite Urine Bilirubin Urine Urobilinogen Ur Leukocyte Esterase Urine WBC (Auto) Urine RBC (Auto) U Hyaline Cast (Auto) U Epithel Cells (Auto) Urine Bacteria (Auto) COVID-19 Eval Order SARS-CoV-2 (PCR) NEGATIVE 10/18/20 10/18/20 10/18/20 01:24 01:25 02:03 WBC RBC Hgb Hct MCV MCH MCHC RDW Std Deviation RDW Coeff of Yariel Plt Count MPV Immature Gran % (Auto) Neut % (Auto) Lymph % (Auto) [place] % (Auto) Eos % (Auto) Baso % (Auto) Neut # (Auto) Lymph # (Auto) [place] # (Auto) Eos # (Auto) Baso # (Auto) Immature Gran # (Auto) PT INR APTT PTT Ratio Sodium Potassium Chloride Carbon Dioxide Anion Gap BUN Creatinine Est Cr Clr Drug Dosing Est GFR ( Amer) Est GFR (Non-Af Amer) BUN/Creatinine Ratio Glucose POC Glucose 305 H* 327 H* Estimat Average Glucose Hemoglobin A1c Calcium Magnesium Total Bilirubin AST ALT Alkaline Phosphatase Troponin I NT-Pro-B Natriuret Pep Total Protein Albumin Globulin Albumin/Globulin Ratio Urine Color Yellow Urine Appearance Clear Urine pH 8.0 H Ur Specific [place] 1.008 Urine Protein Negative Urine Glucose (UA) 1+ H Urine Ketones Negative Urine Blood Trace H Urine Nitrite Negative Urine Bilirubin Negative Urine Urobilinogen Negative Ur Leukocyte Esterase Negative Urine WBC (Auto) 0 Urine RBC (Auto) 0-4 U Hyaline Cast (Auto) 0 U Epithel Cells (Auto) 0-5 Urine Bacteria (Auto) Negative COVID-19 Eval Order SARS-CoV-2 (PCR) 10/18/20 10/18/20 10/18/20 06:09 06:09 06:09 WBC 5.04 RBC 3.34 L Hgb 9.7 L Hct 30.6 L MCV 91.6 MCH 29.0 MCHC 31.7 L RDW Std Deviation 56.2 H RDW Coeff of Yariel 17.4 H Plt Count 237 MPV 9.0 Immature Gran % (Auto) 0.0 Neut % (Auto) 91.8 Lymph % (Auto) 5.2 [place] % (Auto) 3.0 Eos % (Auto) 0.0 Baso % (Auto) 0.0 Neut # (Auto) 4.63 Lymph # (Auto) 0.26 L [place] # (Auto) 0.15 Eos # (Auto) 0.00 Baso # (Auto) 0.00 Immature Gran # (Auto) 0.00 PT 16.4 H INR 1.7 H APTT PTT Ratio Sodium Pending Potassium Pending Chloride Pending Carbon Dioxide Pending Anion Gap Pending BUN Pending Creatinine Pending Est Cr Clr Drug Dosing Pending Est GFR ( Amer) Pending Est GFR (Non-Af Amer) Pending BUN/Creatinine Ratio Pending Glucose Pending POC Glucose Estimat Average Glucose Hemoglobin A1c Calcium Pending Magnesium Pending Total Bilirubin AST ALT Alkaline Phosphatase Troponin I NT-Pro-B Natriuret Pep Total Protein Albumin Globulin Albumin/Globulin Ratio Urine Color Urine Appearance Urine pH Ur Specific [place] Urine Protein Urine Glucose (UA) Urine Ketones Urine Blood Urine Nitrite Urine Bilirubin Urine Urobilinogen Ur Leukocyte Esterase Urine WBC (Auto) Urine RBC (Auto) U Hyaline Cast (Auto) U Epithel Cells (Auto) Urine Bacteria (Auto) COVID-19 Eval Order SARS-CoV-2 (PCR) 10/18/20 06:09 WBC RBC Hgb Hct MCV MCH MCHC RDW Std Deviation RDW Coeff of Yariel Plt Count MPV Immature Gran % (Auto) Neut % (Auto) Lymph % (Auto) [place] % (Auto) Eos % (Auto) Baso % (Auto) Neut # (Auto) Lymph # (Auto) [place] # (Auto) Eos # (Auto) Baso # (Auto) Immature Gran # (Auto) PT INR APTT PTT Ratio Sodium Potassium Chloride Carbon Dioxide Anion Gap BUN Creatinine Est Cr Clr Drug Dosing Est GFR ( Amer) Est GFR (Non-Af Amer) BUN/Creatinine Ratio Glucose POC Glucose Estimat Average Glucose Pending Hemoglobin A1c Pending Calcium Magnesium Total Bilirubin AST ALT Alkaline Phosphatase Troponin I NT-Pro-B Natriuret Pep Total Protein Albumin Globulin Albumin/Globulin Ratio Urine Color Urine Appearance Urine pH Ur Specific [place] Urine Protein Urine Glucose (UA) Urine Ketones Urine Blood Urine Nitrite Urine Bilirubin Urine Urobilinogen Ur Leukocyte Esterase Urine WBC (Auto) Urine RBC (Auto) U Hyaline Cast (Auto) U Epithel Cells (Auto) Urine Bacteria (Auto) COVID-19 Eval Order SARS-CoV-2 (PCR) ECG Additional Comments: 17-OCT-2020 17:13:31 [facility]-EDSTAT ROUTINE RETRIEVAL Normal sinus rhythm Nonspecific ST and T wave abnormality Abnormal ECG When compared with ECG of 29-MAY-2020 22:05, No significant change was found (1) Anemia Anemia type: unspecified type Qualified Code(s): D64.9 - Anemia, unspecified (2) Pulmonary embolism Pulmonary embolism type: saddle Chronicity: unspecified Acute cor pulmonale presence: without acute cor pulmonale Qualified Code(s): I26.92 - Saddle embolus of pulmonary artery without acute cor pulmonale
[2020-10-18 07:08] LABS: BUN Creatinine Ratio 12.2 (10-20); Calcium 8.5 mg/dl (8.5-10.1); Creatinine Clr Calc Pharmacy 43.5 ml/min; Est GFR (African American) 49.9 ml/min; Est GFR (Non-African American) 43.1 ml/min; Magnesium 2.1 mg/dl (1.8-2.4); Potassium 3.4 mmol/L (3.5-5.1)
[2020-10-18 07:53] LABS: Estimated Average Glucose 114 mg/dl; Hemoglobin A1C 5.6 % (4.5-5.6)
[2020-10-18] MEDS: FUROSEMIDE 40 MG in SYRINGE 0 ML IV SCH ×2 (08:28→20:28)
[2020-10-18] MEDS: amLODIPine BESYLATE 5 MG TAB PO SCH (08:29)
[2020-10-18] MEDS: FOLIC ACID 1 MG TAB PO SCH (08:29)
[2020-10-18] MEDS: ADVANCED PROBIOTIC 1250 MG CAPSULE PO SCH (08:30)
[2020-10-18] MEDS: CYANOCOBALAMIN (VITAMIN B-12) 100 MCG TABLET PO SCH (08:30)
[2020-10-18] MEDS: METOPROLOL SUCC 25MG EXT REL TAB PO SCH (08:30)
[2020-10-18] MEDS: ESCITALOPRAM OXALATE 10 MG TAB PO SCH (08:31)
[2020-10-18] MEDS: POTASSIUM CHLORIDE CRTAB 20 MEQ TABCR PO SCH ×2 (08:57→10:55)
[2020-10-18] MEDS: UMECLIDINIUM/VILANTEROL 62.5/25MCG 7 PUFFS/INHALER INH SCH (08:57)
[2020-10-18] MEDS ORDERED: FUROSEMIDE 40 MG/4 ML VIAL IV SCH (09:00)
--- NOTE | 2020-10-18 11:41 | Pulmonary Consultation ---
Date of Consultation October 18, 2020 Assessment & Plan (1) Bilateral pleural effusion: CT chest 10/18/2020 personally reviewed: Bilateral pleural effusion appreciated with compression atelectasis bilateral lower lobes Groundglass opacities appreciated bilaterally likely representing pulmonary edema No mediastinal lymphadenopathy --Bilateral pleural effusion Etiology is likely noncompliance with medication with diastolic CHF Patient also has underlying CKD Dasatinib can also cause pleural effusion along with AML which the patient has. Low in differential This is acute exacerbation of diastolic CHF with fluid overload Thoracentesis 03/02/2019 when 900 mm of sanguinous fluid aspirated. Lymphocytic. Cytology was negative for malignancy 2D echo 10/18/20: EF 70% BNP 1097 COVID-19 negative Procalcitonin 0.25 Continue with diuretics O2 supplementation to keep O2 saturation between 88-92% --Hemoptysis Etiology is likely underlying supratherapeutic INR It has been corrected Patient did not have hemoptysis for more than 48 hours Monitor H&H --Acute on chronic hypoxic respiratory failure with underlying COPD Continue with oxygen therapy, maintain O2 saturation between 88 to 92% Not in acute COPD exacerbation, continue with inhaled therapy Continue with Anoro --Probable MARCO Mallampati 4, snoring at night BiPAP nightly Needs outpatient polysomnography --History of PE in May 2018 On Coumadin. S/p vitamin K came with supratherapeutic INR Plan: Recommend aggressive diuresis to keep the patient negative balance. Aim for at least -1 L per 24 hours. Give extra dose of Lasix if need be. 1 dose of metolazone given. BiPAP nightly and as needed shortness of breath Incentive spirometry Patient noncompliance with medication is playing a major role in patient's presentation. Need social work involvement to see if we can help her with that. No plan for thoracentesis currently. Will reassess patient's respiratory status after 48 hours and if the patient still has significant pleural effusion then thoracentesis will resolve. Recommend heparin drip in the interim. Please note the above document was generated using voice recognition software. It may contain grammatical, syntax or spelling errors.Any formal questions or concerns about the content, text or information contained within the body of this dictation should be directly addressed to the provider for clarification. 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 Pulmonary were consulted for pleural effusion Patient had thoracentesis done on 03/02/2019 when 900 mm of sanguinous fluid aspirated. Cytology was negative for malignancy At the time of examination patient states that she has been having worsening sh ortness of breath which has been going on for approximately a week. On asking whether she was taking her diuretic medications she is stated that she stopped taking approximately a week ago on asking why she did not have a clear explanation. Patient denies any chest pain. She has chronic cough which is no change in consistency or frequency. She did have hemoptysis 2 days ago. She did not have any phlegm since the last 2 days. Denies any fever or chills. No dysuria, no diarrhea, no hematuria, no hematochezia. No headache, no nausea or vomiting. She has not been using her inhalers on a daily basis as well. Patient was admitted last in May 2020 where again she had stopped taking her diuretics. Social history: Greater than [id number] smoking history, quit approximately 10 years ago, no alcohol, denies any illicit drug use. Allergies: No known drug allergies Allergies Allergy/AdvReac Type Severity Reaction Status Date / Time No Known Allergies Allergy Verified 10/17/20 19:06 Home Medications Medication Instructions Recorded Confirmed Type tramadol 50 mg PO Q6H PRN 04/05/18 10/17/20 History Sprycel 70 mg PO BID 06/12/18 10/17/20 History Levemir FlexTouch U-100 Insuln 14 unit SUBCUT USEASDIRECTD 02/23/19 10/17/20 History atorvastatin 40 mg PO PM 02/23/19 10/17/20 History bumetanide 1 mg PO DAILY 02/23/19 10/17/20 History ipratropium-albuterol 3 ml INHALATION BID 02/23/19 10/17/20 History lorazepam 0.5 mg SUBLINGUAL BID PRN 02/23/19 10/17/20 History metoprolol succinate 25 mg PO DAILY 02/23/19 10/17/20 History potassium chloride 20 meq PO DAILY 02/23/19 10/17/20 History Probiotic 10,000 mmu cells PO DAILY 05/28/20 10/17/20 History amlodipine 10 mg PO DAILY 05/28/20 10/17/20 History cyanocobalamin (vitamin B-12) 100 mcg PO DAILY 05/28/20 10/17/20 History folic acid 1 mg PO DAILY 05/28/20 10/17/20 History omeprazole 20 mg PO BID 05/28/20 10/17/20 History warfarin 5 mg PO DIRECTED 05/28/20 10/17/20 History clindamycin HCl 300 mg PO QID 10/17/20 10/17/20 History doxycycline hyclate 100 mg PO BID 10/17/20 10/17/20 History escitalopram oxalate 10 mg PO DAILY 10/17/20 10/17/20 History triamcinolone acetonide 1 applic TOPICAL BID 10/17/20 10/17/20 History umeclidinium-vilanterol [Anoro 1 inh INHALATION DAILY 10/17/20 10/17/20 History Ellipta] Patient History Medical History (Updated 10/18/20 @ 11:44 by Antonio Guillaume MD) Acute hypoxemic respiratory failure ALL (acute lymphoblastic leukemia) Bacteremia Chronic respiratory failure CKD (chronic kidney disease), stage III COPD (chronic obstructive pulmonary disease) Depression Diabetes mellitus Diabetes mellitus, type II DM type 2 (diabetes mellitus, type 2) Dyslipidemia EKG abnormalities GERD (gastroesophageal reflux disease) GERD (gastroesophageal reflux disease) Hypertension Leg edema Lumbar disc disease Moderate COPD (chronic obstructive pulmonary disease) MRSA (methicillin resistant Staphylococcus aureus) septicemia Mucoid impaction of bronchi Nocturnal hypoxia Osteoarthritis Ovarian cyst Pulmonary embolism Secondary hyperparathyroidism Splenomegaly Tobacco use Surgical History H/O tubal ligation History of cholecystectomy Family History Denies family history of Coronary heart disease Social History Smoking Status: Former smoker Tobacco Type: Cigarettes Hx Alcohol Use: No Hx Substance Use: No Preferred Language: Welsh Communication Ability: Effective Visual Impairment: No Limitations Hearing Ability: Normal Ca[employer] Shift Superintendent Required: No Beliefs That Will Affect Care: None marital status: / Current Living Situation: Alone Current Living Situation Comment: House Other Information That Helps Us Care for You: No Feels Safe at Home: Yes Assistive Devices: None Review of Systems Review of Systems: All systems reviewed & are unremarkable except as noted in HPI & below Physical Exam Physical Exam: Constitutional: No acute distress HEENT: EOMI, PERRLA Respiratory system: Decreased air entry bilaterally, no wheeze, no rhonchi, positive crackles bilateral lower lobes CVS: S1-S2 positive, no murmurs or gallops Abdomen: Soft, nontender, nondistended, positive bowel sounds x4, obese Extremities: +2 pulses bilaterally radialis/ dorsalis pedis, no cyanosis, minimal edema bilateral lower extremity Neuro: Awake alert oriented x3 Psych: Normal mood and affect G/U: No Winkler Skin: no rashes, warm and dry Lymphatic: no cervical or axillary lymphadenopathy Results & Data Results & Data ([facility]) Vital Signs (Past 12 Hours) Vital Signs Temp Pulse Pulse Resp BP Pulse Ox 10/18/20 09:09 78 10/18/20 07:58 36.8 C 81 19 148/69 H 90 10/18/20 07:11 82 22 92 10/18/20 03:37 36.8 C 78 20 138/69 90 10/18/20 01:42 80 22 92 10/17/20 23:45 36.3 C L 85 21 149/81 H 90 10/18/20 06:09 10/18/20 06:09 PG Care Time/CCT Total # of Minutes Spent Total Time Spent with Patient: Total time spent is greater than 50% in coord ination of care (as documented) at patient's floor/unit and/or counseling patient: Coding Level of Care Code 62722 Initial Inpt Care Lvl 3 Diagnoses Bilateral pleural effusion J90 Acute on chronic respiratory failure with hypoxemia J96.21 COPD (chronic obstructive pulmonary disease) J44.9
[2020-10-18] MEDS ORDERED: metOLazone 5 MG TABLET PO ONE (11:46)
--- NOTE | 2020-10-18 12:20 | Gastrointestinal Consultation ---
Date of Consultation October 18, 2020 Assessment & Plan (1) Chronic anemia: (2) Anticoagulated on Coumadin: (3) Blood in stool: Anemia is most likely multifactorial She is not an appropriate candidate for Endoscopic evaluation at this time Continue Pantoprazole 40 mg IV BID Continue current therapy and supportive care Continue to hold Coumadin Re-consult if she develops any overt GI bleeding. History of Present Illness Reason for Consultation: Blood in stool, Anemia Attending Physician: Nicholas Gray DO History of Present Illness Fabby Cortes is a 74 yo CF with an extensive PMHx including ALL, History of PE on chronic coumadin therapy, Diastolic HF, Chronic hypoxic respiratory failure on home O2, hemoptysis and medical non-compliance, who presented to the ER last night with complaints of SOB and dyspnea on exertion. Upon arrival to the ER, she underwent a Chest CT which revealed bilateral pleural effusions. She had been non-compliant recently with her diuretic therapy. She was also noted to have a Supratherapeutic INR and anemia with an H/H of 9.7/30.6. She received IV Vitamin K in the ER, and her coumadin was held. She was subsequently admitted and was seen by Cardiology and Pulmonology, who recommended diuresis, but no thoracentesis. She was placed on Protonix 40 mg IV BID, and was reported to have 2 brown stools since her arrival per nursing. At the time I saw her, she denied any abdominal pain, nausea, vomiting, hematemesis, melena, or hematochezia. She states that she has not had a colonoscopy in many years since she lived in [facility]. She states that she is feeling better since her arrival, and has tolerated PO intake, without difficulty. Allergies Allergy/AdvReac Type Severity Reaction Status Date / Time No Known Allergies Allergy Verified 10/17/20 19:06 Home Medications Medication Instructions Recorded Confirmed Type tramadol 50 mg PO Q6H PRN 04/05/18 10/17/20 History Sprycel 70 mg PO BID 06/12/18 10/17/20 History Levemir FlexTouch U-100 Insuln 14 unit SUBCUT USEASDIRECTD 02/23/19 10/17/20 History atorvastatin 40 mg PO PM 02/23/19 10/17/20 History bumetanide 1 mg PO DAILY 02/23/19 10/17/20 History ipratropium-albuterol 3 ml INHALATION BID 02/23/19 10/17/20 History lorazepam 0.5 mg SUBLINGUAL BID PRN 02/23/19 10/17/20 History metoprolol succinate 25 mg PO DAILY 02/23/19 10/17/20 History potassium chloride 20 meq PO DAILY 02/23/19 10/17/20 History Probiotic 10,000 mmu cells PO DAILY 05/28/20 10/17/20 History amlodipine 10 mg PO DAILY 05/28/20 10/17/20 History cyanocobalamin (vitamin B-12) 100 mcg PO DAILY 05/28/20 10/17/20 History folic acid 1 mg PO DAILY 05/28/20 10/17/20 History omeprazole 20 mg PO BID 05/28/20 10/17/20 History warfarin 5 mg PO DIRECTED 05/28/20 10/17/20 History clindamycin HCl 300 mg PO QID 10/17/20 10/17/20 History doxycycline hyclate 100 mg PO BID 10/17/20 10/17/20 History escitalopram oxalate 10 mg PO DAILY 10/17/20 10/17/20 History triamcinolone acetonide 1 applic TOPICAL BID 10/17/20 10/17/20 History umeclidinium-vilanterol [Anoro 1 inh INHALATION DAILY 10/17/20 10/17/20 History Ellipta] Patient History Medical History (Updated 10/18/20 @ 12:26 by Nils Reeves DO) Acute hypoxemic respiratory failure ALL (acute lymphoblastic leukemia) Bacteremia Chronic respiratory failure CKD (chronic kidney disease), stage III COPD (chronic obstructive pulmonary disease) Depression Diabetes mellitus Diabetes mellitus, type II DM type 2 (diabetes mellitus, type 2) Dyslipidemia EKG abnormalities GERD (gastroesophageal reflux disease) GERD (gastroesophageal reflux disease) Hypertension Leg edema Lumbar disc disease Moderate COPD (chronic obstructive pulmonary disease) MRSA (methicillin resistant Staphylococcus aureus) septicemia Mucoid impaction of bronchi Nocturnal hypoxia Osteoarthritis Ovarian cyst Pulmonary embolism Secondary hyperparathyroidism Splenomegaly Tobacco use Surgical History H/O tubal ligation History of cholecystectomy Family History Denies family history of Coronary heart disease Social History Smoking Status: Former smoker Tobacco Type: Cigarettes Hx Alcohol Use: No Hx Substance Use: No Preferred Language: Djiboutian Communication Ability: Effective Visual Impairment: No Limitations Hearing Ability: Normal Director Of Pediatric Rehabilitation Required: No Beliefs That Will Affect Care: None marital status: / Current Living Situation: Alone Current Living Situation Comment: House Other Information That Helps Us Care for You: No Feels Safe at Home: Yes Assistive Devices: None Review of Systems Review of Systems: All systems reviewed & are unremarkable except as noted in HPI & below Physical Exam Constitutional: + ill appearing (4 word dyspnea); no acute distress Eyes: + anicteric sclerae ENMT: Ears: no hearing impairment Neck: normal visual inspection Respiratory: no respiratory distress, no labored breathing and no cough Auscultation: + diminished lung sounds Cardiovascular: RRR, no murmur, no edema Gastrointestinal (Abdomen): normal bowel sounds, soft, nontender, no hepatosplenomegaly Skin: + pallor Psychiatric: A+Ox3, euthymic affect Results & Data ([facility]) Vital Signs (Past 12 Hours) Vital Signs Temp Pulse Pulse Resp BP Pulse Ox 10/18/20 12:04 37.1 C 79 19 137/69 94 10/18/20 09:09 78 10/18/20 07:58 36.8 C 81 19 148/69 H 90 10/18/20 07:11 82 22 92 10/18/20 03:37 36.8 C 78 20 138/69 90 10/18/20 01:42 80 22 92 PG Care Time/CCT Total # of Minutes Spent Total Time Spent with Patient: Total time spent is greater than 50% in coordin ation of care (as documented) at patient's floor/unit and/or counseling patient: Coding Level of Care Code 55989 Initial Inpt Care Lvl 3 Diagnoses Chronic anemia D64.9 Anticoagulated on Coumadin Z79.01 Blood in stool K92.1
[2020-10-18 19:34] LABS: Hematocrit (blood only) 31.8 % (37-47); Hemoglobin 10.1 g/dL (12.0-16.0)
[2020-10-19] MEDS: LEVALBUTEROL 1.25MG/0.5ML NEB INH SCH ×4 (00:33→19:28)
[2020-10-19] MEDS: IPRATROPIUM BROMIDE NEB SOLN 0.02% 2.5 ML VIAL INH SCH ×4 (00:33→19:28)
[2020-10-19] MEDS: PIPERACILLIN/TAZOBACTAM 3.375 GM in DEXTROSE 5% 100 ML IV SCH ×3 (02:04→17:36)
[2020-10-19 06:03] LABS: Hematocrit (blood only) 31.3 % (37-47); Mean Corpuscular Hemoglobin 29.7 pg (25-34); Mean Corpuscular Hgb Conc 31.9 g/dL (32-36); Mean Corpuscular Volume 92.9 fL (80-100); Mean Platelet Volume 8.7 fL (7.4-10.4); Platelet Count 296 K/uL (130-400); RDW Coefficient of Variation 18.1 % (11.5-14.5); RDW Standard Deviation 60.6 fL (36.4-46.3); Red Blood Count 3.37 M/uL (4.2-5.4); White Blood Count 11.53 K/uL (4.8-10.8)
[2020-10-19 06:08] LABS: INR 1.2 (0.9-1.1); Prothrombin Time 12.1 Seconds (9.0-12.0)
[2020-10-19 06:25] LABS: Albumin Level 3.1 gm/dl (3.4-5.0); BUN Creatinine Ratio 13.2 (10-20); Calcium 8.9 mg/dl (8.5-10.1); Creatinine Clr Calc Pharmacy 35.4 ml/min; Est GFR (African American) 40.6 ml/min; Est GFR (Non-African American) 35.1 ml/min; Potassium 3.1 mmol/L (3.5-5.1)
[2020-10-19 06:28] LABS: Bilirubin,Total 0.8 mg/dl (0.2-1); Total Protein 6.1 gm/dl (6.4-8.2)
--- NOTE | 2020-10-19 07:00 | Hospitalist Progress Note ---
Date of Service October 19, 2020 Assessment & Plan (1) Acute exacerbation of CHF (congestive heart failure): (2) Acute exacerbation of chronic obstructive pulmonary disease: (3) Chronic anemia: (4) Bilateral pleural effusion: (5) Acute respiratory distress: (6) Hypoxia: (7) MARCO (obstructive sleep apnea): (8) Acute and chronic respiratory failure with hypoxia: (9) Diabetes mellitus: (10) DM type 2 (diabetes mellitus, type 2): (11) Hypertension: (12) Dyslipidemia: (13) CKD (chronic kidney disease), stage III: (14) GERD (gastroesophageal reflux disease): (15) ALL (acute lymphoblastic leukemia): (16) Splenomegaly: (17) Depression: (18) Tobacco use: (19) Supratherapeutic INR: ASSESSMENT AND PLAN: This is a 74-year-old female with history of chronic obstructive pulmonary disease, chronic respiratory failure on 3 L oxygen, and diastolic congestive heart failure, who presents with ongoing shortness of breath. 1. Rthjw-rq-[id number] respiratory failure requiring BiPAP: Chronic obstructive pulmonary disease exacerbation, possible underlying pneumonia, and acute on chronic diastolic congestive heart failure and pleural effusions. The patient is also on steroid dosing, nebs in the ER, and also got a dose of Bumex and placed on BiPAP. Was on NC when I saw her this am. Placed her on nebs around the clock and p.r.n. IV Solu-Medrol 40 b.i.d., Lasix and daily weights, I's and O's. CT chest reviewed. 2. Hemoptysis: Most likely secondary to elevated INR. INR reversed 3. Elevated INR: On warfarin sec to PE, Supratherapeutic INR of greater than 10.7. Received IV vitamin K 10 mg. Will hold the Coumadin. Follow PT/INR in the a.m. 4. Gastrointestinal bleed: She says she had some blood in the stool for the last 2-3 days. Hemoglobin is 9.3, it was 11-12 recently. We will follow H and H every 6 hours. Placed on IV Protonix 40 b.i.d. Blood consent obtained. INR is getting reversed. Consult GI. 5. Iphqp-cy-elkfrrs diastolic congestive heart failure: Continue Lasix. Continue home Toprol-XL. Follow echocardiogram. 6. Pleural effusion: CT scan. Check CXR 10/20 to see if tap needed 7. Left lower extremity cellulitis: Zosyn and doxycycline. 8. History of diabetes: Continue Levemir 10 units b.i.d., insulin sliding scale. Follow the blood sugar while the patient is on steroids. 9. Coronary artery disease: Continue statin, Toprol-XL. 10. History of acute lymphoblastic leukemia: On Sprycel. 11. Gastroesophageal reflux disease: On omeprazole. 12. Hypokalemia: Will monitor 13. Depression: Lexapro. 14. Hypertension: Continue amlodipine and Toprol-XL. Will monitor the blood pressure while the patient is on IV Lasix. 15. History of pulmonary embolism in 2019: Off Coumadin. INR is reversed. s/p vitamin K. IV heparin for now 16. Chronic kidney disease stage III: Baseline creatinine around 1.2 to 1.4 17. Deep venous thrombosis prophylaxis: IV Heparin DISPOSITION: Tele. PT, OT prior to discharge. Social service to help with discharge planning. Code status, DNR/DNI Labs Checked ROS-No Headache, No Visual Changes, No Nausea, No Vomiting, No Fever, No Chills, No Neck Pain or Stiffness, No Chest Pain, No Palpitations, + SOB, No LINARES, No Cough, No Sputum, + Wheezing, No Abdominal Pain, No Diarrhea, No Hematemesis, No Hemoptysis, No Unexpected Weight Loss, No Flank pain, No Melena, No Hematochezia, No Frequency, No Urgency, No Burning, No Hematuria, No Rashes, No Diaphoresis. Appetite is Normal Physical Exam Gen-AAO x 3, NAD, Afebrile, On NC Head-NCAT, EOMI, PERRLA, Anicteric Sclera, No Posterior Pharyngeal Erythema Neck-Supple, No JVD, No Thyromegaly, No Masses, No LAD, No Bruits Lungs-CTAB but diminished B/L Chest-No S4, +S1, +S2, No S3, No Murmurs, No Rubs, No Gallops, No Ectopy Abdomen-Soft, Bowel Sounds Present, Non Tender, Non Distended, No Hepatomegaly, No Splenomegaly, No Palpable Masses, No Rebound, No Rigidity, No Guarding Musculoskeletal-Full Range of Motion Bilaterally, No CVAT Extremities-No Cyanosis, No Clubbing, No Edema Nuero-Cranial Nerves II-XII grossly intact, Motor WNL, DTRs WNL, Strength WNL, Non Focal Psych-Normal Mood Admission and Anticipated Discharge Date Admission Date: October 17, 2020 Results & Data Results & Data ([facility]) Vital Signs (Past 12 Hours) Vital Signs Temp Pulse Resp BP Pulse Ox 10/19/20 03:28 36.5 C 83 19 161/61 H 93 10/19/20 00:33 73 18 94 10/18/20 23:19 36.8 C 81 20 128/58 L 92 10/18/20 19:32 36.6 C 86 19 169/71 H 90 10/18/20 19:22 20 (1) Acute exacerbation of CHF (congestive heart failure) Heart failure type: unspecified Qualified Code(s): I50.9 - Heart failure, unspecified
[2020-10-19] MEDS ORDERED: Heparin IV Adult Wt-Based Standard *NO* Bolus Protocol IV SCH (07:02)
[2020-10-19] MEDS ORDERED: POTASSIUM CHLORIDE CRTAB 20 MEQ TABCR PO STA (07:56)
[2020-10-19] MEDS ORDERED: metOLazone 5 MG TABLET PO ONE (07:56)
--- NOTE | 2020-10-19 07:59 | Pulmonology Progress Note ---
Date of Service October 19, 2020 Assessment & Plan (1) Bilateral pleural effusion: CT chest 10/18/2020 personally reviewed: Bilateral pleural effusion appreciated with compression atelectasis bilateral lower lobes Groundglass opacities appreciated bilaterally likely representing pulmonary edema No mediastinal lymphadenopathy --Bilateral pleural effusion Etiology is likely noncompliance with medication with diastolic CHF Patient also has underlying CKD Dasatinib can also cause pleural effusion along with AML which the patient has. Low in differential This is acute exacerbation of diastolic CHF with fluid overload Thoracentesis 03/02/2019 when 900 ml of sanguinous fluid aspirated. Lymphocytic. Cytology was negative for malignancy 2D echo 10/18/20: EF 70% BNP 1097 COVID-19 negative Procalcitonin <0.05 Continue with diuretics O2 supplementation to keep O2 saturation between 88-92% --Hemoptysis Etiology is likely underlying supratherapeutic INR Resolved Patient did not have hemoptysis for more than 48 hours Monitor H&H --Acute on chronic hypoxic respiratory failure with underlying COPD Continue with oxygen therapy, maintain O2 saturation between 88 to 92% Not in acute COPD exacerbation, continue with inhaled therapy Continue with Anoro --Probable MARCO Mallampati 4, snoring at night BiPAP nightly Needs outpatient polysomnography --History of PE in May 2018 On Coumadin. S/p vitamin K came with supratherapeutic INR Plan: In/out: -2.3 L Patient getting 60 mEq of potassium on a daily basis. I will give another 40 mE q one-time dose Give extra dose of Lasix if need be. 1 dose of metolazone given. Repeat chest x-ray in the morning. No clear signs of pulmonary infection. Would recommend discontinuing antibiotics. BiPAP nightly and as needed shortness of breath Incentive spirometry Patient noncompliance with medication is playing a major role in patient's presentation. Need social work involvement to see if we can help her with that. Importance of compliance with medication was explained to the patient in depth. Please note the above document was generated using voice recognition software. It may contain grammatical, syntax or spelling errors.Any formal questions or concerns about the content, text or information contained within the body of this dictation should be directly addressed to the provider for clarification. (2) Acute on chronic respiratory failure with hypoxemia: (3) COPD (chronic obstructive pulmonary disease): Admission and Anticipated Discharge Date Admission Date: October 17, 2020 Subjective Patient seen and examined at bedside. No acute distress, no adverse events overnight. Patient is urinating well. She was asking to actually go home. Shortness of breath is improved. Denies any chest pain, no headache, no nausea, no vomiting. Fair appetite. No more hemoptysis since more than 3 days. Review of Systems Review of Systems: All systems reviewed & are unremarkable except as noted in Subjective Physical Exam Physical Exam: Constitutional: No acute distress HEENT: EOMI, PERRLA Respiratory system: Decreased air entry bilaterally (Improved compared to yesterday), no wheeze, no rhonchi, positive crackles bilateral lower lobes CVS: S1-S2 positive, no murmurs or gallops Abdomen: Soft, nontender, nondistended, positive bowel sounds x4, obese Extremities: +2 pulses bilaterally radialis/ dorsalis pedis, no cyanosis, no edema Neuro: Awake alert oriented x3 Psych: Normal mood and affect G/U: No Winkler Skin: no rashes, warm and dry Lymphatic: no cervical or axillary lymphadenopathy Results & Data Results & Data ([facility]) Vital Signs (Past 12 Hours) Vital Signs Temp Pulse Resp BP Pulse Ox 10/19/20 06:59 79 16 92 10/19/20 03:28 36.5 C 83 19 161/61 H 93 10/19/20 00:33 73 18 94 10/18/20 23:19 36.8 C 81 20 128/58 L 92 10/19/20 05:27 10/19/20 05:27 PG Care Time/CCT Total # of Minutes Spent Total Time Spent with Patient: Total time spent is greater than 50% in coordination of care (as documented) at patient's floor/unit and/or counseling patient: Coding Level of Care Code 69782 Subseq Hosp Care Lvl 3 Diagnoses Bilateral pleural effusion J90 Acute on chronic respiratory failure with hypoxemia J96.21 COPD (chronic obstructive pulmonary disease) J44.9
[2020-10-19] MEDS: FUROSEMIDE 40 MG in SYRINGE 0 ML IV SCH ×2 (08:01→21:20)
[2020-10-19] MEDS: FOLIC ACID 1 MG TAB PO SCH (08:02)
[2020-10-19] MEDS: DOXYCYCLINE HYCLATE 100 MG CAP PO SCH ×2 (08:02→21:20)
[2020-10-19] MEDS: ESCITALOPRAM OXALATE 10 MG TAB PO SCH (08:02)
[2020-10-19] MEDS: PANTOprazole 40 MG in SYRINGE 0 ML IV SCH ×2 (08:02→21:20)
[2020-10-19] MEDS: CYANOCOBALAMIN (VITAMIN B-12) 100 MCG TABLET PO SCH (08:03)
[2020-10-19] MEDS: ADVANCED PROBIOTIC 1250 MG CAPSULE PO SCH (08:03)
[2020-10-19] MEDS: amLODIPine BESYLATE 5 MG TAB PO SCH (08:04)
[2020-10-19] MEDS: INSULIN DETEMIR FLEXPEN/FLEX TOUCH 100 UNITS/ML 3ML SC SCH ×2 (08:05→21:23)
[2020-10-19] MEDS: INSULIN ASPART 100 UNITS/ML 3 ML PEN SC SCH ×4 (08:56→21:21)
[2020-10-19] MEDS: HEPARIN SODIUM/DEXTROSE 25,000 UNITS/500 ML BAG IV SCH (09:10)
[2020-10-19] MEDS: TRIAMCINOLONE ACET 0.1% CR 15 GM TUBE TOP SCH ×2 (09:11→21:20)
[2020-10-19] MEDS: METOPROLOL SUCC 25MG EXT REL TAB PO SCH (09:11)
[2020-10-19] MEDS: UMECLIDINIUM/VILANTEROL 62.5/25MCG 7 PUFFS/INHALER INH SCH (09:12)
--- NOTE | 2020-10-19 13:25 | Cardiology Progress Note ---
Date of Service October 19, 2020 Assessment & Plan (1) Acute and chronic respiratory failure with hypoxia: Patient is a complex 74-year-old female presents with multifactorial mixed respiratory failure. Patient with chronically O2 dependent obstructive lung disease chronic bilateral pleural effusions and past diastolic heart failure per records presents with gradual decline over several weeks with acute dyspnea over the past several days. Patient improving with diuresis reflecting diastolic heart failure/chronic right heart failure with pulmonary superimposed on renal sufficiency and hypoalbuminemia Agree with plans for continued diuresis, repeat chest x-ray in a.m. (2) Pleural effusion: (3) ALL (acute lymphoblastic leukemia): (4) Anemia: Findings reflect acute decline with hemoglobin on outpatient laboratory studies of 10/09/20 12.0 INR has been reversed this morning we will need to follow closely for signs of hemorrhage (5) Pulmonary embolism: Admission and Anticipated Discharge Date Admission Date: October 17, 2020 Subjective Patient feels improved after vigorous diuresis yesterday. No cough or further hemoptysis. No dizziness or lightheadedness. No arrhythmias on telemetry. Review of Systems Review of Systems: All systems reviewed & are unremarkable except as noted in Subjective Physical Exam Constitutional: + ill appearing (, Chronic) Eyes: PERRL, conjunctivae normal, anicteric sclerae ENMT: external ear and nose normal, oropharynx normal Neck: trachea midline, no thyromegaly Respiratory: Auscultation: + diminished lung sounds and + rales Cardiovascular: Rate/Rhythm: regular rate and regular rhythm Heart Sounds: normal S1 and normal S2; no gallop and no murmur Palpation: normal PMI Vessels: normal carotid upstroke and radial pulses present; no JVD and no carotid bruit Extremities: + edema (1+ right greater than left) Gastrointestinal (Abdomen): normal bowel sounds, soft, nontender, no hepatosplenomegaly Musculoskeletal: no cyanosis or clubbing, extremities motor strength 5/5 Skin: no rashes, warm and dry Neurologic: PERRL, EOMI, accommodation nl, no face palsy, no dysarthria Psychiatric: Affect: + flat affect Results & Data ([facility]) Vital Signs (Past 12 Hours) Vital Signs Temp Pulse Pulse Resp BP BP Pulse Ox 10/19/20 11:39 36.8 C 78 18 148/71 H 90 10/19/20 09:28 77 10/19/20 09:24 10/19/20 08:06 36.9 C 81 20 155/72 H 90 10/19/20 06:59 79 16 92 10/19/20 03:28 36.5 C 83 19 161/61 H 93 Pulse Ox 10/19/20 11:39 10/19/20 09:28 10/19/20 09:24 90 10/19/20 08:06 10/19/20 06:59 10/19/20 03:28 Laboratory Results Laboratory Results - last 24 hr 10/18/20 10/18/20 10/18/20 16:07 19:09 20:15 WBC RBC Hgb 10.1 L Hct 31.8 L MCV MCH MCHC RDW Std Deviation RDW Coeff of Yariel Plt Count MPV PT INR Sodium Potassium Chloride Carbon Dioxide Anion Gap BUN Creatinine Est Cr Clr Drug Dosing Est GFR ( Amer) Est GFR (Non-Af Amer) BUN/Creatinine Ratio Glucose POC Glucose 97 217 H Calcium Total Bilirubin AST ALT Alkaline Phosphatase Total Protein Albumin Globulin Albumin/Globulin Ratio 10/19/20 10/19/20 10/19/20 05:27 05:27 05:27 WBC 11.53 H RBC 3.37 L Hgb 10.0 L Hct 31.3 L MCV 92.9 MCH 29.7 MCHC 31.9 L RDW Std Deviation 60.6 H RDW Coeff of Yariel 18.1 H Plt Count 296 MPV 8.7 PT 12.1 H INR 1.2 H Sodium 141 Potassium 3.1 L Chloride 100 Carbon Dioxide 39 H Anion Gap 2.0 L BUN 19 H Creatinine 1.47 H Est Cr Clr Drug Dosing 35.4 Est GFR ( Amer) 40.6 Est GFR (Non-Af Amer) 35.1 BUN/Creatinine Ratio 13.2 Glucose 110 H POC Glucose Calcium 8.9 Total Bilirubin 0.8 AST 33 ALT 36 Alkaline Phosphatase 81 Total Protein 6.1 L Albumin 3.1 L Globulin 3.0 Albumin/Globulin Ratio 1.0 10/19/20 10/19/20 07:15 11:06 WBC RBC Hgb Hct MCV MCH MCHC RDW Std Deviation RDW Coeff of Yariel Plt Count MPV PT INR Sodium Potassium Chloride Carbon Dioxide Anion Gap BUN Creatinine Est Cr Clr Drug Dosing Est GFR ( Amer) Est GFR (Non-Af Amer) BUN/Creatinine Ratio Glucose POC Glucose 103 H 97 Calcium Total Bilirubin AST ALT Alkaline Phosphatase Total Protein Albumin Globulin Albumin/Globulin Ratio (1) Anemia Anemia type: unspecified type Qualified Code(s): D64.9 - Anemia, unspecified (2) Pulmonary embolism Pulmonary embolism type: saddle Chronicity: unspecified Acute cor pulmonale presence: without acute cor pulmonale Qualified Code(s): I26.92 - Saddle embolus of pulmonary artery without acute cor pulmonale
[2020-10-19] MEDS: POTASSIUM CHLORIDE CRTAB 20 MEQ TABCR PO SCH ×2 (14:41→21:22)
[2020-10-19 16:53] LABS: Partial Thromboplastin Ratio 2.3
[2020-10-19 16:55] LABS: Partial Thromboplastin Time 60.9 Seconds (21.0-31.0)
[2020-10-19] MEDS: ATORVASTATIN 40 MG TAB PO SCH (21:20)
[2020-10-20] MEDS: LEVALBUTEROL 1.25MG/0.5ML NEB INH SCH ×3 (00:14→13:35)
[2020-10-20] MEDS: IPRATROPIUM BROMIDE NEB SOLN 0.02% 2.5 ML VIAL INH SCH ×3 (00:14→13:35)
[2020-10-20] MEDS: PIPERACILLIN/TAZOBACTAM 3.375 GM in DEXTROSE 5% 100 ML IV SCH ×2 (02:41→11:11)
[2020-10-20 06:23] LABS: Hematocrit (blood only) 35.7 % (37-47); Mean Corpuscular Hemoglobin 29.3 pg (25-34); Mean Corpuscular Hgb Conc 30.8 g/dL (32-36); Mean Corpuscular Volume 95.2 fL (80-100); Mean Platelet Volume 9.1 fL (7.4-10.4); Platelet Count 340 K/uL (130-400); RDW Coefficient of Variation 18.1 % (11.5-14.5); RDW Standard Deviation 62.3 fL (36.4-46.3); Red Blood Count 3.75 M/uL (4.2-5.4); White Blood Count 9.63 K/uL (4.8-10.8)
[2020-10-20] MEDS: HEPARIN SODIUM/DEXTROSE 25,000 UNITS/500 ML BAG IV SCH (06:27)
[2020-10-20 06:43] LABS: INR 1.3 (0.9-1.1); Partial Thromboplastin Ratio 4.1
[2020-10-20 06:45] LABS: BUN Creatinine Ratio 12.5 (10-20); Calcium 9.3 mg/dl (8.5-10.1); Creatinine Clr Calc Pharmacy 28.9 ml/min; Est GFR (African American) 32.5 ml/min; Potassium 3.5 mmol/L (3.5-5.1)
--- NOTE | 2020-10-20 06:45 | Hospitalist Progress Note ---
Date of Service October 20, 2020 Assessment & Plan (1) Acute exacerbation of CHF (congestive heart failure): (2) Acute exacerbation of chronic obstructive pulmonary disease: (3) Chronic anemia: (4) Bilateral pleural effusion: (5) Acute respiratory distress: (6) Hypoxia: (7) MARCO (obstructive sleep apnea): (8) Acute and chronic respiratory failure with hypoxia: (9) Diabetes mellitus: (10) DM type 2 (diabetes mellitus, type 2): (11) Hypertension: (12) Dyslipidemia: (13) CKD (chronic kidney disease), stage III: (14) GERD (gastroesophageal reflux disease): (15) ALL (acute lymphoblastic leukemia): (16) Splenomegaly: (17) Depression: (18) Tobacco use: (19) Supratherapeutic INR: ASSESSMENT AND PLAN: This is a 74-year-old female with history of chronic obstructive pulmonary disease, chronic respiratory failure on 3 L oxygen, and diastolic congestive heart failure, who presents with ongoing shortness of breath. 1. Kfkow-nn-lxknpra respiratory failure requiring BiPAP: Chronic obstructive pulmonary disease exacerbation, possible underlying pneumonia, and acute on chronic diastolic congestive heart failure and pleural effusions. The patient is also on steroid dosing, nebs in the ER, and also got a dose of Bumex and placed on BiPAP. Was on NC when I saw her this am. Lasix and daily weights, I's and O's. CT chest reviewed. 2. Hemoptysis: Most likely secondary to elevated INR. INR reversed 3. Elevated INR: On warfarin sec to PE, Supratherapeutic INR of greater than 10.7. Received IV vitamin K 10 mg. Will hold the Coumadin. Follow PT/INR. 4. Gastrointestinal bleed: She says she had some blood in the stool for the last 2-3 days. Hemoglobin is 9.3, it was 11-12 recently. Placed on IV Protonix 40 b.i.d. Blood consent obtained. INR reversed. Hb rising 5. Vyavy-ek-vjnjigo diastolic congestive heart failure: Continue Lasix. Continue home Toprol-XL. Follow echocardiogram. 6. Pleural effusion: CT scan noted. Check CXR today to see if tap needed 7. Left lower extremity cellulitis: Zosyn and doxycycline. 8. History of diabetes: Continue Levemir 10 units b.i.d., insulin sliding scale. Follow the blood sugar while the patient is on steroids. 9. Coronary artery disease: Continue statin, Toprol-XL. 10. History of acute lymphoblastic leukemia: On Sprycel. 11. Gastroesophageal reflux disease: On omeprazole. 12. Hypokalemia: Will monitor 13. Depression: Lexapro. 14. Hypertension: Continue amlodipine and Toprol-XL. Will monitor the blood pressure while the patient is on IV Lasix. 15. History of pulmonary embolism in 2019: Off Coumadin. INR is reversed. s/p vitamin K. IV heparin for now 16. Chronic kidney disease stage III: Baseline creatinine around 1.2 to 1.4 17. Deep venous thrombosis prophylaxis: IV Heparin DISPOSITION: Tele. Social service to help with discharge planning. Code status, DNR/DNI, DC on Omnicef and Doxy for 10 day total course, f/u Cards, Onc, and Pulm Labs Checked ROS-No Headache, No Visual Changes, No Nausea, No Vomiting, No Fever, No Chills, No Neck Pain or Stiffness, No Chest Pain, No Palpitations, + SOB, No LINARES, No Cough, No Sputum, + Wheezing, No Abdominal Pain, No Diarrhea, No Hematemesis, No Hemoptysis, No Unexpected Weight Loss, No Flank pain, No Melena, No Hematochezia, No Frequency, No Urgency, No Burning, No Hematuria, No Rashes, No Diaphoresis. Appetite is Normal Physical Exam Gen-AAO x 3, NAD, Afebrile, On NC Head-NCAT, EOMI, PERRLA, Anicteric Sclera, No Posterior Pharyngeal Erythema Neck-Supple, No JVD, No Thyromegaly, No Masses, No LAD, No Bruits Lungs-Rales at bases, diminished B/L Chest-No S4, +S1, +S2, No S3, No Murmurs, No Rubs, No Gallops, No Ectopy Abdomen-Soft, Bowel Sounds Present, Non Tender, Non Distended, No Hepatomegaly, No Splenomegaly, No Palpable Masses, No Rebound, No Rigidity, No Guarding Musculoskeletal-Full Range of Motion Bilaterally, No CVAT Extremities-No Cyanosis, No Clubbing, No Edema Nuero-Cranial Nerves II-XII grossly intact, Motor WNL, DTRs WNL, Strength WNL, Non Focal Psych-Normal Mood Admission and Anticipated Discharge Date Admission Date: October 17, 2020 Results & Data Results & Data ([facility]) Vital Signs (Past 12 Hours) Vital Signs Temp Pulse Resp BP Pulse Ox 10/20/20 03:08 36.7 C 84 18 144/83 H 95 10/20/20 00:14 81 16 93 10/19/20 23:14 36.8 C 72 19 140/76 94 10/19/20 19:36 36.8 C 75 19 144/69 H 92 10/19/20 19:28 77 16 92 (1) Acute exacerbation of CHF (congestive heart failure) Heart failure type: unspecified Qualified Code(s): I50.9 - Heart failure, unspecified
[2020-10-20 06:46] LABS: Partial Thromboplastin Time 107.1 Seconds (21.0-31.0)
[2020-10-20] MEDS: PANTOprazole 40 MG in SYRINGE 0 ML IV SCH (08:41)
[2020-10-20] MEDS: POTASSIUM CHLORIDE CRTAB 20 MEQ TABCR PO SCH (08:41)
[2020-10-20] MEDS: METOPROLOL SUCC 25MG EXT REL TAB PO SCH (08:42)
[2020-10-20] MEDS: CYANOCOBALAMIN (VITAMIN B-12) 100 MCG TABLET PO SCH (08:42)
[2020-10-20] MEDS: FUROSEMIDE 40 MG in SYRINGE 0 ML IV SCH (08:42)
[2020-10-20] MEDS: ADVANCED PROBIOTIC 1250 MG CAPSULE PO SCH (08:42)
[2020-10-20] MEDS: DOXYCYCLINE HYCLATE 100 MG CAP PO SCH (08:42)
[2020-10-20] MEDS: ESCITALOPRAM OXALATE 10 MG TAB PO SCH (08:42)
[2020-10-20] MEDS: amLODIPine BESYLATE 5 MG TAB PO SCH (08:43)
[2020-10-20] MEDS: INSULIN DETEMIR FLEXPEN/FLEX TOUCH 100 UNITS/ML 3ML SC SCH (08:44)
[2020-10-20] MEDS: INSULIN ASPART 100 UNITS/ML 3 ML PEN SC SCH ×2 (08:44→11:55)
[2020-10-20] MEDS: UMECLIDINIUM/VILANTEROL 62.5/25MCG 7 PUFFS/INHALER INH SCH (08:45)
[2020-10-20] MEDS: TRIAMCINOLONE ACET 0.1% CR 15 GM TUBE TOP SCH (08:45)
--- NOTE | 2020-10-20 09:14 | XRay Report ---
XR chest 2V PA/lateral CLINICAL HISTORY: Pleural effusions COMPARISON STUDY: 10/17/2020 FINDINGS: The cardiac and mediastinal contours remain stable. There is elevation of interstitium cons istent with congestive failure/interstitial edema. This appears slightly improved. There are persiste nt bilateral pleural effusions with associated basilar airspace opacities and left lower lobe air bro nchograms[ IMPRESSION: 1. Improving congestive failure/interstitial edema 2. Persistent bilateral pleural effusions with associated basilar atelectasis/consolidation ACT 112: Negative or not required by law. Electronically signed by: James Concepcion M.D. 10/20/2020 9:13 AM
--- NOTE | 2020-10-20 10:44 | Pulmonology Progress Note ---
Date of Service October 20, 2020 Assessment & Plan (1) Bilateral pleural effusion: Impression: 74-year-old female with COPD and diastolic heart failure presenting with bilateral pleural effusions and fluid overload. Recommendations: 1. Pleural effusions: X-ray today demonstrated persistent bilateral pleural effusions but improved from prior. Discussed options with the patient. She would like to consider medical therapy at this point time and is not interested in any invasive procedures. Given her preference, will hold off on any plans for thoracentesis. Continue diuretics per cardiology and primary service with attention to kidney function electrolytes. 2. Hemoptysis: Resolved. Okay to restart anticoagulation and follow clinically. 3. Hypoxemia: The patient is back to her baseline oxygen requirement and is asking about when she can be dismissed from the hospital. From a pulmonary standpoint, she can be dismissed as long as her medical regimen is optimized. She was counseled regarding the importance of adherence to her medical regiment to prevent additional hospitalizations in the future. 4. Pulmonary will sign off at this point time. Feel free to contact us if we can be of additional assistance. (2) Acute on chronic respiratory failure with hypoxemia: (3) COPD (chronic obstructive pulmonary disease): Admission and Anticipated Discharge Date Admission Date: October 17, 2020 Review of Systems Review of Systems: All systems reviewed & are unremarkable except as noted in HPI & below Physical Exam Constitutional: + ill appearing (, Chronic) Eyes: PERRL, conjunctivae normal, anicteric sclerae ENMT: external ear and nose normal, oropharynx normal Neck: trachea midline, no thyromegaly Respiratory: Auscultation: + diminished lung sounds and + rales Cardiovascular: Rate/Rhythm: regular rate and regular rhythm Heart Sounds: normal S1 and normal S2; no gallop and no murmur Palpation: normal PMI Vessels: normal carotid upstroke and radial pulses present; no JVD and no carotid bruit Extremities: + edema (1+ right greater than left) Gastrointestinal (Abdomen): normal bowel sounds, soft, nontender, no hepatosplenomegaly Musculoskeletal: no cyanosis or clubbing, extremities motor strength 5/5 Skin: no rashes, warm and dry Neurologic: PERRL, EOMI, accommodation nl, no face palsy, no dysarthria Psychiatric: Affect: + flat affect Results & Data Results & Data ([facility]) Vital Signs (Past 12 Hours) Vital Signs Temp Pulse Resp BP Pulse Ox 10/20/20 07:42 36.5 C 79 19 137/70 94 10/20/20 07:06 79 18 91 10/20/20 03:08 36.7 C 84 18 144/83 H 95 10/20/20 00:14 81 16 93 10/19/20 23:14 36.8 C 72 19 140/76 94 Laboratory Results 10/20/20 05:53 10/20/20 05:53 I/O: -900 mL Diagnostic Findings Chest x-ray from today was independently reviewed and compared to prior chest x- ray from 10/17/2020. There are persistent bilateral pleural effusions but much improved compared to the prior film. Persistent pulmonary vascular congestion is noted however this also appears somewhat improved. PG Care Time/CCT Total # of Minutes Spent Total Time Spent with Patient: Total time spent is greater than 50% in coordination of care (as documented) at patient's floor/unit and/or counseling patient: Coding Level of Care Code 01017 Subseq Hosp Care Lvl 2 Diagnoses Bilateral pleural effusion J90 Acute on chronic respiratory failure with hypoxemia J96.21 COPD (chronic obstructive pulmonary disease) J44.9
[2020-10-20] MEDS: FOLIC ACID 1 MG TAB PO SCH (11:11)
--- NOTE | 2020-10-20 11:20 | Discharge Summary ---
Date of Service October 20, 2020 Admission HPI Per Admitting Provider 74-year-old female with past medical history significant for type 2 diabetes, hypertension, chronic kidney disease stage III, chronic respiratory failure, hyperlipidemia, COPD, nocturnal hypoxia, CAD, GERD, history of generalized osteoarthritis, ALL, thrombocytopenia, splenomegaly, psoriasis, history of pulmonary embolism, depression, who lives alone, ambulates without any support. Brother lives downstairs. Uses oxygen 3 L all the time. Comes because of shortness of breath for the last 3 days. She has some cough and she is bringing some blood in the cough and she also saw some nosebleed and also some blood in the stools. She was found to have elevated INR in the ER. She was requiring BiPAP in the ER. Currently on the BiPAP, she is resting comfortably. Denies any chest pain, no nausea, no abdominal pain, no headache, no blurred visions, no runny nose, no sore throat, no fevers, no abdominal pain. Normal bladder movements. Also has some infection in the left lower extremity, was recently started on clindamycin as outpatient. She says she took her COVID vaccine. Admission Exam Per Admitting Provider PHYSICAL EXAMINATION: GENERAL: The patient is of moderate build not in acute distress. VITAL SIGNS: Temperature 36.7, pulse 88, respiratory rate 23, blood pressure 152/65, oxygen 94% on BiPAP. HEENT: Pupils equal, round, and reactive to light. NECK: No JVD. No neck masses. CARDIOVASCULAR: S1 and S2 heard. Regular rate and rhythm. No murmur, no gallop. RESPIRATORY: Normal AP diameter. No accessory muscle use. Some diminished breath sounds in bibasilar crackles. ABDOMEN: Soft, bowel sounds present, nontender, no distention. CENTRAL NERVOUS SYSTEM: Cranial nerves II through XII are grossly intact, nonfocal. EXTREMITIES: Mild lower extremity pedal edema present. Left lower extremity is erythematous and warm to palpation. Principal Diagnosis (1) Acute exacerbation of Diastolic CHF (congestive heart failure): (2) Acute exacerbation of chronic obstructive pulmonary disease: (3) Chronic anemia: (4) Bilateral pleural effusion: (5) Acute respiratory distress: (6) Hypoxia: (7) MARCO (obstructive sleep apnea): (8) Acute and chronic respiratory failure with hypoxia: (9) Diabetes mellitus: (10) DM type 2 (diabetes mellitus, type 2): (11) Hypertension: (12) Dyslipidemia: (13) CKD (chronic kidney disease), stage III: (14) GERD (gastroesophageal reflux disease): (15) ALL (acute lymphoblastic leukemia): (16) Splenomegaly: (17) Depression: (18) Tobacco use: (19) Supratherapeutic INR: Discharge Exam see below Discharge Data Allergies Allergy/AdvReac Type Severity Reaction Status Date / Time No Known Allergies Allergy Verified 10/17/20 19:06 Consultations 10/17/20 18:30 ED Decision to Admit Stat 10/18/20 08:00 Consult Cardiology Routine Consult Gastroenterology Routine Consult Pulmonology Routine Ordered Studies 10/17/20 16:37 US venous doppler LE LT Stat 10/17/20 23:54 CT chest diagnostic wo con Urgent Current Diagnoses Acute lymphoblastic leukemia not having achieved remission (10/17/20) Anemia, unspecified (10/17/20) Type 2 diabetes mellitus without complications (10/17/20) Hyperlipidemia, unspecified (10/17/20) Major depressive disorder, single episode, unspecified (10/17/20) Obstructive sleep apnea (adult) (pediatric) (10/17/20) Essential (primary) hypertension (10/17/20) Saddle embolus of pulmonary artery without acute cor pulmonale (10/17/20) Heart failure, unspecified (10/17/20) Chronic obstructive pulmonary disease with (acute) exacerbation (10/17/20) Chronic obstructive pulmonary disease, unspecified (10/17/20) Pleural effusion, not elsewhere classified (10/17/20) Acute and chronic respiratory failure with hypoxia (10/17/20) Gastro-esophageal reflux disease without esophagitis (10/17/20) Melena (10/17/20) Chronic kidney disease, stage 3 (moderate) (10/17/20) Acute respiratory distress (10/17/20) Hypoxemia (10/17/20) Splenomegaly, not elsewhere classified (10/17/20) Abnormal coagulation profile (10/17/20) Tobacco use (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 10/17/20 18:07 Blood Anaerobic Blood Culture - Final 10/17/20 18:02 Blood Aerobic Blood Culture - Preliminary No growth in Aerobic bottle after 48 hours. 10/17/20 18:02 Blood Anaerobic Blood Culture - Preliminary No growth in Anaerobic bottle after 48 hours. Hospital Course (1) Acute exacerbation of CHF (congestive heart failure): (2) Acute exacerbation of chronic obstructive pulmonary disease: (3) Chronic anemia: (4) Bilateral pleural effusion: (5) Acute respiratory distress: (6) Hypoxia: (7) MARCO (obstructive sleep apnea): (8) Acute and chronic respiratory failure with hypoxia: (9) Diabetes mellitus: (10) DM type 2 (diabetes mellitus, type 2): (11) Hypertension: (12) Dyslipidemia: (13) CKD (chronic kidney disease), stage III: (14) GERD (gastroesophageal reflux disease): (15) ALL (acute lymphoblastic leukemia): (16) Splenomegaly: (17) Depression: (18) Tobacco use: (19) Supratherapeutic INR: ASSESSMENT AND PLAN: This is a 74-year-old female with history of chronic obstructive pulmonary disease, chronic respiratory failure on 3 L oxygen, and diastolic congestive heart failure, who presents with ongoing shortness of breath. 1. Oueni-oj-[id number] respiratory failure requiring BiPAP: Chronic obstructive pulmonary disease exacerbation, possible underlying pneumonia, and acute on chronic diastolic congestive heart failure and pleural effusions. The patient is also on steroid dosing, nebs in the ER, and also got a dose of Bumex and placed on BiPAP. Was on NC when I saw her this am. Lasix and daily weights, I's and O's. CT chest reviewed. 2. Hemoptysis: Most likely secondary to elevated INR. INR reversed 3. Elevated INR: On warfarin sec to PE, Supratherapeutic INR of greater than 10.7. Received IV vitamin K 10 mg. resume warfarin 4. Gastrointestinal bleed: Hb rising 5. [id number] diastolic congestive heart failure c Preserved EF: Bumex on DC 6. Pleural effusion: CT scan noted. Check CXR today to see if tap needed 7. Left lower extremity cellulitis: Zosyn and doxycycline. 8. History of diabetes: Continue Levemir 10 units b.i.d., insulin sliding scale. Follow the blood sugar while the patient is on steroids. 9. Coronary artery disease: Continue statin, Toprol-XL. 10. History of acute lymphoblastic leukemia: On Sprycel. 11. Gastroesophageal reflux disease: On omeprazole. 12. Hypokalemia: Will monitor 13. Depression: Lexapro. 14. Hypertension: Continue amlodipine and Toprol-XL. Will monitor the blood pressure while the patient is on IV Lasix. 15. History of pulmonary embolism in 2019: Off Coumadin. INR is reversed. s/p vitamin K. IV heparin for now 16. Chronic kidney disease stage III: Baseline creatinine around 1.2 to 1.4, 1.77 today, Diuresis will cause renal insuff due to DCHF DISPOSITION: DC on Omnicef and Doxy for 10 day total course, f/u Cards, Onc, and Pulm, Resume Warfarin in Warfarin clinic, DC today no tap per pulm, CXR 3 weeks. Be compliant c Lasix Labs Checked ROS-No Headache, No Visual Changes, No Nausea, No Vomiting, No Fever, No Chills, No Neck Pain or Stiffness, No Chest Pain, No Palpitations, + SOB, No LINARES, No Cough, No Sputum, + Wheezing, No Abdominal Pain, No Diarrhea, No Hematemesis, No Hemoptysis, No Unexpected Weight Loss, No Flank pain, No Melena, No Hematochezia, No Frequency, No Urgency, No Burning, No Hematuria, No Rashes, No Diaphoresis. Appetite is Normal Physical Exam Gen-AAO x 3, NAD, Afebrile, On NC Head-NCAT, EOMI, PERRLA, Anicteric Sclera, No Posterior Pharyngeal Erythema Neck-Supple, No JVD, No Thyromegaly, No Masses, No LAD, No Bruits Lungs-Rales at bases, diminished B/L Chest-No S4, +S1, +S2, No S3, No Murmurs, No Rubs, No Gallops, No Ectopy Abdomen-Soft, Bowel Sounds Present, Non Tender, Non Distended, No Hepatomegaly, No Splenomegaly, No Palpable Masses, No Rebound, No Rigidity, No Guarding Musculoskeletal-Full Range of Motion Bilaterally, No CVAT Extremities-No Cyanosis, No Clubbing, No Edema Nuero-Cranial Nerves II-XII grossly intact, Motor WNL, DTRs WNL, Strength WNL, Non Focal Psych-Normal Mood Total Time Total Time Spent Total Time Spent (In Minutes): 45 min Total Time Includes: Examination of the Patient, Discharge Planning, Medication Reconciliation and Communication With Other Providers Discharge Plan Discharge Items Patient Disposition: Home - Self-Care Reason For Visit: SOB Discharge Diagnosis: (1) Acute exacerbation of Diastolic CHF (congestive heart failure): (2) Acute exacerbation of chronic obstructive pulmonary disease: (3) Chronic anemia: (4) Bilateral pleural effusion: (5) Acute respiratory distress: (6) Hypoxia: (7) MARCO (obstructive sleep apnea): (8) Acute and chronic respiratory failure with hypoxia: (9) Diabetes mellitus: (10) DM type 2 (diabetes mellitus, type 2): (11) Hypertension: (12) Dyslipidemia: (13) CKD (chronic kidney disease), stage III: (14) GERD (gastroesophageal reflux disease): (15) ALL (acute lymphoblastic leukemia): (16) Splenomegaly: (17) Depression: (18) Tobacco use: (19) Supratherapeutic INR: Condition on Discharge: Fair Health Concerns: Compliance with bumex Activity: Resume your previous activity Lifting: Gradually increase as tolerated Bathing: No limitations Sexual Activity: When tolerated Exercise/Sports: Gradually increase as tolerated Driving/Machine Use: No limitations Weightbearing: Full weightbearing Non-emergency contact: Primary Care Provider, Racehorse Trainer, Oncologist and Bridge Opener Call non-emergency contact if: you have any medication questions Follow-up/Referrals: Antonio Guillaume MD [Physician] - (3 weeks) Esa Fung MD [Physician] - (3 weeks) Natalia Brambila DO [Primary Care Provider] - Diet: Carb Consistent or DM2 Fluids: 1200ml (5 cups) Addtl Attending Provider Instructions: Monitor your weight daily Resume Warfarin with the Warfarin Clinic Pending Studies at Discharge: No Stand-Alone Forms: My [employer], Smoking Cessation Medications and DC Order Prescriptions: New doxycycline hyclate 100 mg Capsule 100 mg PO BID Qty: 14 RF: 0 cefdinir 300 mg capsule 300 mg PO Q12H 7 Days Qty: 14 RF: 0 amlodipine [Norvasc] 5 mg Tablet 10 mg PO DAILY Qty: 30 RF: 0 warfarin 2 mg tablet 4 mg PO DAILY Qty: 90 RF: 0 Continued tramadol 50 mg Tablet 50 mg PO Q6H PRN (Reason: Pain) RF: 0 Sprycel 70 mg Tablet 70 mg PO BID RF: 0 ipratropium-albuterol 0.5 mg-3 mg(2.5 mg base)/3 mL Solution For Nebulization 3 ml INHALATION BID RF: 0 lorazepam 0.5 mg Tablet 0.5 mg SUBLINGUAL BID PRN (Reason: Anxiety) RF: 0 metoprolol succinate 25 mg Tablet Extended Release 24 Hr 25 mg PO DAILY RF: 0 atorvastatin 40 mg Tablet 40 mg PO PM RF: 0 bumetanide 1 mg Tablet 1 mg PO DAILY RF: 0 Levemir FlexTouch U-100 Insuln 100 unit/mL (3 mL) Insulin Pen 14 unit subcut USEASDIRECTD RF: 0 potassium chloride 20 mEq Tablet Extended Release 20 meq PO DAILY RF: 0 Probiotic 10 billion cell Capsule 10,000 mmu cells PO DAILY RF: 0 omeprazole 20 mg Capsule,Delayed Release(Dr/Ec) 20 mg PO BID RF: 0 cyanocobalamin (vitamin B-12) 100 mcg Tablet 100 mcg PO DAILY RF: 0 folic acid 1 mg Tablet 1 mg PO DAILY RF: 0 triamcinolone acetonide 0.1 % cream 1 applic TOPICAL BID RF: 0 escitalopram oxalate 10 mg tablet 10 mg PO DAILY RF: 0 Anoro Ellipta 62.5-25 mcg/actuation blister with device 1 inh INHALATION DAILY RF: 0 Discontinued warfarin 5 mg Tablet 5 mg PO DIRECTED RF: 0 amlodipine 5 mg tablet 10 mg PO DAILY RF: 0 doxycycline hyclate 100 mg capsule 100 mg PO BID RF: 0 clindamycin HCl 300 mg capsule 300 mg PO QID RF: 0 Discharge Orders: Discharge Order (Routine); Ordered 10/20/20 Ordered By: Nicholas Dai/Other Patient Handouts: Coping with Heart Failure Admission Data Admit Date/Time: 10/17/20 20:12 Attending Provider: Nicholas Gray Admit Provider: Hussain Guidry Primary Care Provider: Natalia Brambila Other Providers: Munir Shields ; Esa Fung ; Mitesh Carranza ; Ashley Tariq ; Kirk Rodriguez ; uSzie Billingsley ; Perico Davis ; Nasir Ireland ; Susan Hammer ; Johann Cochran ; Kassidy Brock ; Ivy Osorio ; Angelita Naqvi ; Shwetha Robison ; Shila Kong ; Antonio Guillaume
--- NOTE | 2020-10-20 12:31 | Electrocardiogram Report ---
Test Reason : Blood Pressure : / mmHG Vent. Rate : 076 BPM Atrial Rate : 076 BPM P-R Int : 132 ms QRS Dur : 086 ms QT Int : 384 ms P-R-T Axes : 035 025 020 degrees QTc Int : 432 ms Poor data quality, interpretation may be adversely affected Normal sinus rhythm Nonspecific ST and T wave abnormality Abnormal ECG When compared with ECG of 29-MAY-2020 22:05, No significant change was found Confirmed by Lyndon Toledo ([id number]) on 10/20/2020 12:31:18 PM Referred By: REFERRED SELF Confirmed By:Lyndon Toledo
[2020-10-20] MEDS ORDERED: PANTOprazole 40 MG TAB PO SCH (21:00)
--- NOTE | 2020-11-03 07:41 | Coding Query ---
CODING QUERY To promote full compliance with coding requirements relating to patient care, provider participation is requested in all cases of certified medical coder uncertainty. Please assist us with the question(s) below: Coding Question(s): Acute Exacerbation of COPD is documented throughout chart. Pulmonary is stating patient "not in acute COPD exacerbation." Please clarify below: (xx ) Patient with Acute Exacerbation of COPD ( ) Acute Exacerbation of COPD Ruled Out ( ) Other Please Explain: Thank you Blayne Luciano Principal Diagnosis: "that condition established after study, to be chiefly responsible for occasioning the admission of the patient to the hospital for care." Co-Existing Principal Diagnosis: "when two or more diagnoses equally meet the criteria for principal diagnosis as determined by the circumstances of admission, diagnostic work up, and/or therapy provided, and the Alphabetic Index, Tabular List, or another coding guideline does not provide sequencing direction, any one of the diagnoses may be sequenced first." "When the physician has documented what appears to be a current diagnosis in the body of the record, but has not included the diagnosis in the final diagnostic statement, the physician should be asked whether the diagnosis should be added." (Source Coding Clinic 2 QTR90. p3-4) CK
== END 2020-10-20 13:57 | disposition home or self-care (01) | DRG 291 ==
LOC: ED 15:42 → 2S 20:12

== ENCOUNTER 2020-12-04 11:43 | Inpatient (IN) ==
[2020-12-04] MEDS ORDERED: ONDANSETRON INJ 2 MG/ML 2 ML VIAL IV STA (12:42)
[2020-12-04] MEDS ORDERED: MoRPHine SULFATE 4 MG/ML 1 ML CARP\\VIAL IV STA (12:42)
--- NOTE | 2020-12-04 12:46 | Emergency Department Note ---
History of Present Illness General Chief complaint: Pain (Generalized) Stated complaint: FEVER, Time Seen by Provider: 12/04/20 12:15 Source: patient History of Present Illness Provider complaint: Neck and back pain Onset (ago): month(s) 3 Location: back Radiation: non-radiation Pain Consistency: + constant Maximum Pain Intensity: 10 Quality: + sharp Exacerbated By: + movement Associated symptoms: no chest pain, no cough, no fever/chills, no headaches, no nausea/vomiting or no shortness of breath This is a 73-year-old female who presents with neck and back pain for 3 months. She states that it started off as mild and intermittent. Recently it has gotten more severe and constant. She describes it as sharp. It is worse when she moves around. She denies any injury or fall. She denies headache, chest pain, shortness of breath, vomiting, diarrhea or urinary symptoms. She does state that she has some lower abdominal pain but states that she feels like she has to have a bowel movement. She states the pain does not radiate into her arms or legs. She denies any numbness or weakness in her arms or legs. She denies any fever. Home Medications Medication Instructions Recorded Confirmed Type tramadol 50 mg tablet 50 mg PO Q6H PRN 04/05/18 12/04/20 History dasatinib 70 mg tablet (Sprycel) 70 mg PO BID 06/12/18 12/04/20 History atorvastatin 40 mg tablet 40 mg PO PM 02/23/19 12/04/20 History bumetanide 1 mg tablet 1 mg PO DAILY 02/23/19 12/04/20 History insulin detemir U-100 100 unit/mL 14 unit SUBCUT USEASDIRECTD 02/23/19 12/04/20 History (3 mL) subcutaneous pen (Levemir FlexTouch U-100 Insulin) ipratropium 0.5 mg-albuterol 3 mg 3 ml INHALATION BID 02/23/19 12/04/20 History (2.5 mg base)/3 mL nebulization soln lorazepam 0.5 mg tablet 0.5 mg SUBLINGUAL BID PRN 02/23/19 12/04/20 History metoprolol succinate 25 mg 25 mg PO DAILY 02/23/19 12/04/20 History tablet,extended release 24 hr potassium chloride 20 mEq 20 meq PO DAILY 02/23/19 12/04/20 History tablet,extended release Lactobacillus acidophilus 10 10,000 mmu cells PO DAILY 05/28/20 12/04/20 History billion cell capsule (Probiotic) cyanocobalamin (vitamin B-12) 100 100 mcg PO DAILY 05/28/20 12/04/20 History mcg tablet folic acid 1 mg tablet 1 mg PO DAILY 05/28/20 12/04/20 History omeprazole 20 mg capsule,delayed 20 mg PO BID 05/28/20 12/04/20 History release escitalopram oxalate 10 mg tablet 10 mg PO DAILY 10/17/20 12/04/20 History triamcinolone acetonide 0.1 % 1 applic TOPICAL BID 10/17/20 12/04/20 History topical cream umeclidinium 62.5 mcg-vilanterol 1 inh INHALATION DAILY 10/17/20 12/04/20 History 25 mcg/actuation powdr for inhalation (Anoro Ellipta) amlodipine 5 mg tablet (Norvasc) 10 mg PO DAILY #30 tab 10/20/20 12/04/20 Rx warfarin 2 mg tablet 4 mg PO DAILY #90 tab 10/20/20 12/04/20 Rx Allergies Allergy/AdvReac Type Severity Reaction Status Date / Time No Known Allergies Allergy Verified 12/04/20 14:10 Past Med/Surg History Medical History (Updated 12/04/20 @ 15:12 by Dillon Mccollum MD) Acute hypoxemic respiratory failure ALL (acute lymphoblastic leukemia) Bacteremia Chronic respiratory failure CKD (chronic kidney disease), stage III COPD (chronic obstructive pulmonary disease) Depression Diabetes mellitus Diabetes mellitus, type II DM type 2 (diabetes mellitus, type 2) Dyslipidemia EKG abnormalities GERD (gastroesophageal reflux disease) GERD (gastroesophageal reflux disease) Hypertension Leg edema Lumbar disc disease Moderate COPD (chronic obstructive pulmonary disease) MRSA (methicillin resistant Staphylococcus aureus) septicemia Mucoid impaction of bronchi Nocturnal hypoxia Osteoarthritis Ovarian cyst Pulmonary embolism Secondary hyperparathyroidism Splenomegaly Tobacco use Surgical History H/O tubal ligation History of cholecystectomy Family History Denies family history of Coronary heart disease Social History Smoking Status: Former smoker Tobacco Type: Cigarettes Hx Alcohol Use: No Hx Substance Use: No Preferred Language: Setswana Communication Ability: Effective Visual Impairment: No Limitations Hearing Ability: Normal Senior Functional Analyst Required: No Beliefs That Will Affect Care: None marital status: / Current Living Situation: Alone Current Living Situation Comment: House Feels Safe at Home: Yes Assistive Devices: Oxygen - Continuous Review of Systems See HPI for pertinent positives & negatives. and A total of 10 systems reviewed and were otherwise negative Physical Exam Vital Signs Vital Signs - 24 hr 12/04/20 11:53 12/04/20 13:33 Temperature 36.7 C Temperature Source Oral Pulse Rate 89 Respiratory Rate 16 16 Respiratory Depth Normal Respiratory Pattern Regular Blood Pressure 142/69 H Blood Pressure [Right Arm] 117/71 Blood Pressure Mean 93 Blood Pressure Mean [Right Arm] 86 Pulse Oximetry 95 97 Oxygen Delivery Method Nasal Cannula Oxygen Flow Rate 2 Sepsis Recent Fever Within 48 Hours No Sepsis New/Unexplained Change in Mental Status N/A Sepsis Action Taken by Nursing No Action Required Constitutional: Vital signs reviewed. Eyes: Pupils are equal round reactive to light. Conjunctiva are noninjected. ENT: Pharynx is clear without erythema or exudate. Mucous membranes are moist. Neck supple without meningeal signs. Respiratory: Clear to auscultation bilaterally. Breath sounds are equal bilaterally. Cardiovascular: Regular rate and rhythm. No rubs or gallops. GI: Soft, nondistended and nontender. Bowel sounds are present. Musculoskeletal: No peripheral edema. No lower extremity tenderness. No midline tenderness to the cervical, thoracic or lumbar spine. No CVA tenderness. Integumentary: No cyanosis. or jaundice. Neurological: The patient is awake and alert. No focal deficits. Psychiatric: Anxious. Course Administered Medications Discontinued Medications Morphine Sulfate (Morphine Sulfate 4 Mg/Ml 1 Ml Carp\Vial) 4 mg IV NOW STA Stop: 12/04/20 12:43 Last Admin: 12/04/20 14:09 Dose: 4 mg Documented by: [id number] Ondansetron HCl (Ondansetron Inj 2 Mg/Ml 2 Ml Vial) 4 mg IV NOW STA Stop: 12/04/20 12:43 Last Admin: 12/04/20 14:09 Dose: 4 mg Documented by: [id number] Medical Decision Making Differential Diagnosis Compression fracture, strain, pathologic fracture, metastatic disease, dege nerative disc disease Medical Records Attestation: I reviewed the patient's medical records. I did perform a limited focused review of portions of the patient's old chart on the electronic medical record. The patient was admitted in September for CHF exacerbation Home Medications Current Medication List: was personally reviewed by me Laboratory Data Attestation: I reviewed the patient's lab results. Result diagrams: 12/04/20 14:10 12/04/20 14:10 Lab Results 12/04/20 12/04/20 Range/Units 14:10 14:10 WBC 18.89 H (4.8-10.8) K/uL RBC 4.39 (4.2-5.4) M/uL Hgb 12.6 (12.0-16.0) g/dL Hct 38.0 (37-47) % MCV 86.6 (80-100) fL MCH 28.7 (25-34) pg MCHC 33.2 (32-36) g/dL RDW Std Deviation 45.2 (36.4-46.3) fL RDW Coeff of Yariel 14.1 (11.5-14.5) % Plt Count 347 (130-400) K/uL MPV 9.7 (7.4-10.4) fL Immature Gran % (Auto) 0.3 % Neut % (Auto) 87.7 % Lymph % (Auto) 3.6 % [place] % (Auto) 8.1 % Eos % (Auto) 0.1 % Baso % (Auto) 0.2 % Neut # (Auto) 16.58 H (1.4-6.5) K/uL Lymph # (Auto) 0.68 L (1.2-3.4) K/uL [place] # (Auto) 1.53 H (0.11-0.59) K/uL Eos # (Auto) 0.02 (0-0.5) K/uL Baso # (Auto) 0.03 (0-0.2) K/uL Immature Gran # (Auto) 0.05 H (0.00-0.02) K/uL Sodium 131 L (136-145) mmol/L Potassium 3.1 L (3.5-5.1) mmol/L Chloride 94 L (98-107) mmol/L Carbon Dioxide 32 (21-32) mmol/L Anion Gap 5.0 (3-11) BUN 21 H (7-18) mg/dl Creatinine 1.06 (0.6-1.2) mg/dl Est Cr Clr Drug Dosing 50.4 ml/min Est GFR ( Amer) 60.3 ml/min Est GFR (Non-Af Amer) 52.0 ml/min BUN/Creatinine Ratio 19.6 (10-20) Glucose 154 H (70-99) mg/dl Calcium 8.6 (8.5-10.1) mg/dl Total Bilirubin 0.6 (0.2-1) mg/dl AST 11 L (15-37) U/L ALT 15 (12-78) U/L Alkaline Phosphatase 93 (45-117) U/L Total Protein 5.7 L (6.4-8.2) gm/dl Albumin 2.3 L (3.4-5.0) gm/dl Globulin 3.4 (2.5-4.0) gm/dl Albumin/Globulin Ratio 0.7 L (0.9-2) Lipase 85 (73-393) U/L MDM Narrative I did evaluate the patient as noted above. She is presenting with a 3-month his tory of back pain to her entire neck and back. She states it is worse when she moves around. It is now constant and worse today so she presents for evaluation. She had some lower abdominal pain since yesterday but thinks it is because she may have to go to the bathroom. She has had normal bowel movements. And she has no tenderness on examination. IV access was established. I did place an order for continuous cardiac monitoring. The monitor showed normal sinus rhythm at a rate of 88 bpm. I did treat her with IV morphine and Zofran. I did order a urine analysis. I did order and review the patient's blood work as noted in the electronic medical record. Her white count is elevated at 18,000. She is not anemic. Her electrolytes show a potassium of 3.1 and a sodium of 131. I did order blood cultures. I did order a CT of the spine, chest, abdomen and pelvis. These scans are pending at this time. The patient was signed out to Dr. Levin. Impression & Plan Back pain, Leukocytosis, Acute hyponatremia, Acute hypokalemia Discharge Plan Visit Data Chief Complaint: Pain (Generalized) Stated Complaint: FEVER, ED Provider: Dillon Mccollum Discharge Problem: Back pain, Leukocytosis, Acute hyponatremia, Acute hypokalemia Patient Disposition: Still a Patient Forms Stand Alone Forms: My [facility] Prescriptions Prescriptions: No Action tramadol 50 mg Tablet 50 mg PO Q6H PRN (Reason: Pain) RF: 0 Sprycel 70 mg Tablet 70 mg PO BID RF: 0 ipratropium-albuterol 0.5 mg-3 mg(2.5 mg base)/3 mL Solution For Nebulization 3 ml INHALATION BID RF: 0 lorazepam 0.5 mg Tablet 0.5 mg SUBLINGUAL BID PRN (Reason: Anxiety) RF: 0 metoprolol succinate 25 mg Tablet Extended Release 24 Hr 25 mg PO DAILY RF: 0 atorvastatin 40 mg Tablet 40 mg PO PM RF: 0 bumetanide 1 mg Tablet 1 mg PO DAILY RF: 0 Levemir FlexTouch U-100 Insuln 100 unit/mL (3 mL) Insulin Pen 14 unit subcut USEASDIRECTD RF: 0 potassium chloride 20 mEq Tablet Extended Release 20 meq PO DAILY RF: 0 Probiotic 10 billion cell Capsule 10,000 mmu cells PO DAILY RF: 0 omeprazole 20 mg Capsule,Delayed Release(Dr/Ec) 20 mg PO BID RF: 0 cyanocobalamin (vitamin B-12) 100 mcg Tablet 100 mcg PO DAILY RF: 0 folic acid 1 mg Tablet 1 mg PO DAILY RF: 0 triamcinolone acetonide 0.1 % cream 1 applic TOPICAL BID RF: 0 escitalopram oxalate 10 mg tablet 10 mg PO DAILY RF: 0 Anoro Ellipta 62.5-25 mcg/actuation blister with device 1 inh INHALATION DAILY RF: 0 amlodipine [Norvasc] 5 mg Tablet 10 mg PO DAILY Qty: 30 RF: 0 warfarin 2 mg tablet 4 mg PO DAILY Qty: 90 RF: 0 Referrals Referrals: Natalia Brambila DO [Primary Care Provider] -
[2020-12-04 14:23] LABS: Basophils # (auto) 0.03 K/uL (0-0.2); Basophils % (auto) 0.2 %; Eosinophils # (auto) 0.02 K/uL (0-0.5); Eosinophils % (auto) 0.1 %; Hemoglobin 12.6 g/dL (12.0-16.0); Immature Granulocytes # (auto) 0.05 K/uL (0.00-0.02); Immature Granulocytes % (auto) 0.3 %; Lymphocytes # (auto) 0.68 K/uL (1.2-3.4); Lymphocytes % (auto) 3.6 %; Mean Corpuscular Hemoglobin 28.7 pg (25-34); Mean Corpuscular Hgb Conc 33.2 g/dL (32-36); Mean Corpuscular Volume 86.6 fL (80-100); Mean Platelet Volume 9.7 fL (7.4-10.4); Monocytes # (auto) 1.53 K/uL (0.11-0.59); Monocytes % (auto) 8.1 %; Neutrophils # (auto) 16.58 K/uL (1.4-6.5); Neutrophils % (auto) 87.7 %; Platelet Count 347 K/uL (130-400); RDW Coefficient of Variation 14.1 % (11.5-14.5); RDW Standard Deviation 45.2 fL (36.4-46.3); Red Blood Count 4.39 M/uL (4.2-5.4); White Blood Count 18.89 K/uL (4.8-10.8)
[2020-12-04 14:45] LABS: Albumin Level 2.3 gm/dl (3.4-5.0); BUN Creatinine Ratio 19.6 (10-20); Calcium 8.6 mg/dl (8.5-10.1); Creatinine Clr Calc Pharmacy 50.4 ml/min; Est GFR (African American) 60.3 ml/min; Potassium 3.1 mmol/L (3.5-5.1)
[2020-12-04 14:48] LABS: Albumin Globulin Ratio 0.7 (0.9-2); Bilirubin,Total 0.6 mg/dl (0.2-1); Globulin 3.4 gm/dl (2.5-4.0); Total Protein 5.7 gm/dl (6.4-8.2)
[2020-12-04] MEDS ORDERED: MoRPHine SULFATE 2 MG/ML CARP IV STA (15:15)
--- NOTE | 2020-12-04 15:28 | XRay Report ---
XR thoracic spine 3V routine HISTORY: 74 years-old Female pain eval for fx acute back pain without reported trauma COMPARISON: Chest radiograph 10/20/2020, chest CT 10/18/2020 TECHNIQUE: 3 views of the thoracic spine FINDINGS: Mild to moderate multilevel disc space narrowing with moderate mid to lower thoracic spondylotic spur ring and moderate multilevel facet arthrosis. No acute fracture or subluxation identified. Upper thor acic segments are suboptimally visualized secondary to overlying soft tissue. Cardiomegaly with pulmonary vascular congestion, interstitial coarsening and layering pleural effusio ns with bibasilar consolidation. Left lung base granuloma. IMPRESSION: 1. No acute fracture or subluxation identified. 2. Cardiomegaly with pulmonary edema 3. Layering pleural effusions with bibasilar consolidation. ACT 112: Negative or not required by law. The above report was generated using voice recognition software. It may contain grammatical, syntax o r spelling errors. Electronically signed by: Stanford Lynn M.D. 12/04/2020 3:27 PM
--- NOTE | 2020-12-04 15:38 | Emergency Department Note ---
ED Visit Note The patient was taken in signout from Dr. Mccollum at change of shift. Please see his note for details of the patient's visit/presentation. The patient was pending CT scan of her chest and abdomen pelvis for further evaluation of her symptoms which include several months of back and neck pain and new development of lower abdominal pain. In brief, the patient is a 74-year-old woman with a past medical history of type 2 diabetes, hypertension, CKD, chronic respiratory failure, hyperlipidemia, COPD, nocturnal hypoxia, CAD, GERD, AL L, PCP, splen omegaly, psoriasis, history of PE, depression The patient did have a leukocytosis of 18K which prompted further investigation of possible infectious source. Her chemistry did not demonstrate acidosis. Potassium 3.1, sodium 131 electrolytes otherwise unremarkable. LFTs were unremarkable. Lipase was not elevated. UA was pending at the time of signout. CT of chest and abd/pelvis demonstrates evidence of nonspecific colitis. Note is additionally made of pleural effusions with dependent consolidation with suggestion of atelectasis but also possibility of underlying pneumonia. Note is additionally made of 5.2 cm complex lesion of the right adnexa. CT of the CTL spine negative for acute fractures or dislocations. Upon reevaluation the patient continued to feel uncomfortable complaining of mostly back pain. She denied abdominal pain at this time. Abdominal exam was unremarkable on reassessment given the patient denies any diarrhea, unclear significance of CT findings of colitis. Given the patient's persistence of pain where she reports she is unable to get up and walk reasonable to admit the patient for further management. The patient is in agreement with this plan. UA was eventually obtained and did not show convincing evidence of infection. Will defer decision for antibiotics to admitting team. Case was discussed with Milagros Scott, with Dr. Gray, [facility] hospitalist who will evaluate the patient for admission. Cervical Spine X-Ray 12/04/20 12:42 XR cervical spine 2 or 3V CLINICAL HISTORY: Neck pain. COMPARISON STUDY: None. FINDINGS: There is straightening of the cervical spine. The cervical spine the dorsum C1-T1. No fracture or subluxation. Prevertebral soft tissues and the C1- C2 interval appear intact. Moderate facet degenerative changes seen throughout the cervical spine. There is moderate to severe degenerative disc disease throughout the cervical spine. IMPRESSION: Moderate to severe degenerative changes throughout the cervical spine. No fractures. ACT 112: Negative or not required by law. Electronically signed by: Ricardo Villanueva M.D. 12/04/2020 4:02 PM Lumbar Spine X-Ray 12/04/20 12:42 LUMBAR SPINE 3 VIEWS CLINICAL HISTORY: Atraumatic low back pain. FINDINGS: 3 views of the lumbar spine are correlated with abdominal CT dated . The skeletal structures are osteopenic. There is no radiographic evidence of acute fracture or malalignment involving the lumbar spine. Vertebral body height and alignment are maintained. Anterior and lateral marginal osteophytes are seen throughout. The transverse and spinous processes appear intact. Multilevel facet arthropathy is noted in the lower lumbar region. Mild to moderate disc space narrowing is seen at all lumbar levels, with multilevel posterior disc osteophyte complexes. The visualized bony pelvis appears intact. Sclerotic change is noted in the sacroiliac joints. Cholecystectomy clips are identified in the right upper quadrant. There is no bowel obstruction. Advanced atherosclerotic calcification is seen in the abdominal aorta. IMPRESSION: 1. No acute bony abnormality is identified. 2. Osteopenia and spondylotic change as above. Dictated: 12/04/2020 3:50 PM Transcribed: 12/04/2020 4:15 PM Vanesa [id number] [facility] Electronically signed by: Aamir Herring M.D. 12/04/2020 4:44 PM Thoracic Spine X-Ray 12/04/20 12:42 XR thoracic spine 3V routine HISTORY: 74 years-old Female pain eval for fx acute back pain without reported trauma COMPARISON: Chest radiograph 10/20/2020, chest CT 10/18/2020 TECHNIQUE: 3 views of the thoracic spine FINDINGS: Mild to moderate multilevel disc space narrowing with moderate mid to lower thoracic spondylotic spurring and moderate multilevel facet arthrosis. No acute fracture or subluxation identified. Upper thoracic segments are suboptimally visualized secondary to overlying soft tissue. Cardiomegaly with pulmonary vascular congestion, interstitial coarsening and layering pleural effusions with bibasilar consolidation. Left lung base granuloma. IMPRESSION: 1. No acute fracture or subluxation identified. 2. Cardiomegaly with pulmonary edema 3. Layering pleural effusions with bibasilar consolidation. ACT 112: Negative or not required by law. The above report was generated using voice recognition software. It may contain grammatical, syntax or spelling errors. Electronically signed by: Stanford Lynn M.D. 12/04/2020 3:27 PM Abdomen/Pelvis CT 12/04/20 15:01 CT SCAN OF THE CHEST, ABDOMEN, AND PELVIS WITH IV CONTRAST CLINICAL HISTORY: Leukocytosis. Atypical chest pain. Generalized abdominal pain. COMPARISON STUDY: Chest CT dated 10/18/2020. Abdominal CT dated 05/12/2018. TECHNIQUE: Following the IV administration of 91 of Optiray 320, CT scan of the chest, abdomen, and pelvis was performed from the thoracic inlet to the proximal femora. Images are reviewed in the axial, sagittal, and coronal planes. IV contrast was administered without complication. A dose lowering technique was utilized adhering to the principles of ALARA. CT DOSE: 1611.40 mGy.cm FINDINGS: CHEST: Thyroid: Imaged portions of the thyroid gland are normal in size and attenuation. Thoracic aorta: There is atherosclerotic calcification of the thoracic aorta, which is normal in caliber and demonstrates standard 3-vessel arch anatomy. No dissection is seen. Pulmonary vasculature: The pulmonary trunk is normal in caliber. There are no filling defects identified in the central pulmonary vessels to indicate pulmonary embolus. Note that this examination was not protocoled for evaluation of the pulmonary arteries. Heart: The heart is normal in size and without pericardial effusion. Coronary arteries are densely calcified. Lungs and pleural spaces: Evaluation of the lung parenchyma is modestly degraded by motion artifact. The trachea and central airways are clear. There are moderate pleural effusions with dependent consolidation. Scattered calcified granulomas are observed. Mediastinum: There is no mediastinal lymphadenopathy. Mari: There are calcified left hilar nodes. No hilar adenopathy is identified. Axillae: There is no axillary lymphadenopathy. Bony thorax: The skeletal structures are osteopenic. Mild spondylotic changes noted in the thoracic spine. A hemangioma Is noted in the body of T12. No lytic or blastic lesions are identified. ABDOMEN AND PELVIS: Liver: The contrast-enhanced liver is normal in size, contour, and attenuation. There is no intra- or extrahepatic biliary ductal dilatation. The hepatic veins and portal veins are patent. Gallbladder: Surgically absent noting clips in the gallbladder fossa. Spleen: Normal in size and attenuation. There are calcified splenic granulomas. There is a 9 mm peripheral calcified splenic artery aneurysm. Pancreas: Moderately atrophic and grossly unremarkable. Adrenal glands: Unremarkable. Kidneys: The contrast enhanced kidneys demonstrate cortical atrophy and are without hydronephrosis. The kidneys enhance symmetrically. Abdominal vasculature: The abdominal aorta is normal in course and caliber noting advanced atherosclerotic calcification. Stomach and bowel: There is a tiny hiatal hernia. There is diffuse wall thickening and edema seen throughout the colon with associated mucosal hyperemia as well as pericolonic inflammation and fluid. The appearance is consistent with a nonspecific pancolitis. Mild inflammatory change is also seen in the terminal ileum, likely related to adjacent colitis. Moderate diverticulosis of the colon is noted. There is no definitive CT evidence of acute cholecystitis. There is no bowel obstruction. A portion of the appendix is seen on image #310. The appendix is not well evaluated. Peritoneum: There is trace pelvic ascites. No intraperitoneal free air is identified. There is a small fat-containing umbilical hernia. A large fat- containing infraumbilical hernia is seen to the right of midline on image #272. Lymphadenopathy: None. Pelvic viscera: The bladder and uterus are normal as visualized. A 5.2 x 3.9 cm complex lesion is again seen in the right adnexa on image #337. This is likely related to the right ovary. Skeletal structures: The skeletal structures are osteopenic. There is moderate lumbosacral spondylosis. Hemangiomas are noted in the bodies of L1, L4, and L5. No lytic or blastic lesions are seen. IMPRESSION: 1. Findings are consistent with a nonspecific pancolitis. This is likely on an infectious or inflammatory basis and clinical correlation will be required. 2. Moderate pleural effusions with associated dependent consolidation. This likely represents atelectasis. Correlate clinically for evidence of superimposed pneumonia. 3. There is a 5.2 cm complex lesion seen in the right adnexa, likely related to the right ovary. This abnormal finding, and ovarian neoplasm is to be excluded. Follow-up with a nonemergent pelvic ultrasound and gynecology assessment is recommended. 4. Additional findings as above. ACT 112: Positive. There are findings on this exam that require communication between the performing entity and the patient following Patient Test Result Information Act ([place] Act 112) guidelines. Electronically signed by: Aamir Herring M.D. 12/04/2020 4:[address] 12/04/20 15:04 CT cervical spine w con HISTORY: 74 years-old Female pain acute neck pain without reported trauma COMPARISON: CT thoracic and lumbar spine studies of same day TECHNIQUE: Multiple axial CT images of the cervical spine were obtained following the intravenous ministration of 91 mL Optiray 320. A dose lowering technique was used consistent with the principals of ALARA. FINDINGS: Demineralized appearance the bones. Multifocal intervertebral disc space narrowing, severe at C5-C6. Moderate multilevel spondylitic spurring with chondrocalcinosis of the disc spaces and moderate-sized posterior disc osteophyte complex formations. Severe multilevel facet arthrosis. No acute f racture or subluxation. No endplate erosions. Multilevel neuroforaminal narrowing. The imaged ribs appear intact. No prevertebral edema. Calcified plaque of the carotid bulbs and proximal internal carotid arteries. Moderate size layering pleural effusions are partially imaged. No pneumothorax. IMPRESSION: 1. No acute cervical spine fracture or subluxation. 2. Degenerative changes as above. 3. Moderate pleural effusions. ACT 112: Negative or not required by law. The above report was generated using voice recognition software. It may contain grammatical, syntax or spelling errors. Electronically signed by: Stanford Lynn M.D. 12/04/2020 4:[address] 12/04/20 15:04 CT SCAN OF THE CHEST, ABDOMEN, AND PELVIS WITH IV CONTRAST CLINICAL HISTORY: Leukocytosis. Atypical chest pain. Generalized abdominal pain. COMPARISON STUDY: Chest CT dated 10/18/2020. Abdominal CT dated 05/12/2018. TECHNIQUE: Following the IV administration of 91 of Optiray 320, CT scan of the chest, abdomen, and pelvis was performed from the thoracic inlet to the proximal femora. Images are reviewed in the axial, sagittal, and coronal planes. IV contrast was administered without complication. A dose lowering technique was utilized adhering to the principles of ALARA. CT DOSE: 1611.40 mGy.cm FINDINGS: CHEST: Thyroid: Imaged portions of the thyroid gland are normal in size and attenuation. Thoracic aorta: There is atherosclerotic calcification of the thoracic aorta, which is normal in caliber and demonstrates standard 3-vessel arch anatomy. No d issection is seen. Pulmonary vasculature: The pulmonary trunk is normal in caliber. There are no filling defects identified in the central pulmonary vessels to indicate pulmonary embolus. Note that this examination was not protocoled for evaluation of the pulmonary arteries. Heart: The heart is normal in size and without pericardial effusion. Coronary arteries are densely calcified. Lungs and pleural spaces: Evaluation of the lung parenchyma is modestly degraded by motion artifact. The trachea and central airways are clear. There are moderate pleural effusions with dependent consolidation. Scattered calcified granulomas are observed. Mediastinum: There is no mediastinal lymphadenopathy. Mari: There are calcified left hilar nodes. No hilar adenopathy is identified. Axillae: There is no axillary lymphadenopathy. Bony thorax: The skeletal structures are osteopenic. Mild spondylotic changes noted in the thoracic spine. A hemangioma Is noted in the body of T12. No lytic or blastic lesions are identified. ABDOMEN AND PELVIS: Liver: The contrast-enhanced liver is normal in size, contour, and attenuation. There is no intra- or extrahepatic biliary ductal dilatation. The hepatic veins and portal veins are patent. Gallbladder: Surgically absent noting clips in the gallbladder fossa. Spleen: Normal in size and attenuation. There are calcified splenic granulomas. There is a 9 mm peripheral calcified splenic artery aneurysm. Pancreas: Moderately atrophic and grossly unremarkable. Adrenal glands: Unremarkable. Kidneys: The contrast enhanced kidneys demonstrate cortical atrophy and are without hydronephrosis. The kidneys enhance symmetrically. Abdominal vasculature: The abdominal aorta is normal in course and caliber noting advanced atherosclerotic calcification. Stomach and bowel: There is a tiny hiatal hernia. There is diffuse wall thickening and edema seen throughout the colon with associated mucosal hyperemia as well as pericolonic inflammation and fluid. The appearance is consistent with a nonspecific pancolitis. Mild inflammatory change is also seen in the terminal ileum, likely related to adjacent colitis. Moderate diverticulosis of the colon is noted. There is no definitive CT evidence of acute cholecystitis. There is no bowel obstruction. A portion of the appendix is seen on image #310. The appendix is not well evaluated. Peritoneum: There is trace pelvic ascites. No intraperitoneal free air is identified. There is a small fat-containing umbilical hernia. A large fat- containing infraumbilical hernia is seen to the right of midline on image #272. Lymphadenopathy: None. Pelvic viscera: The bladder and uterus are normal as visualized. A 5.2 x 3.9 cm complex lesion is again seen in the right adnexa on image #337. This is likely related to the right ovary. Skeletal structures: The skeletal structures are osteopenic. There is moderate lumbosacral spondylosis. Hemangiomas are noted in the bodies of L1, L4, and L5. No lytic or blastic lesions are seen. IMPRESSION: 1. Findings are consistent with a nonspecific pancolitis. This is likely on an infectious or inflammatory basis and clinical correlation will be required. 2. Moderate pleural effusions with associated dependent consolidation. This likely represents atelectasis. Correlate clinically for evidence of superimposed pneumonia. 3. There is a 5.2 cm complex lesion seen in the right adnexa, likely related to the right ovary. This abnormal finding, and ovarian neoplasm is to be excluded. Follow-up with a nonemergent pelvic ultrasound and gynecology assessment is recommended. 4. Additional findings as above. ACT 112: Positive. There are findings on this exam that require communication between the performing entity and the patient following Patient Test Result Information Act ([place] Act 112) guidelines. Electronically signed by: Aamir Herring M.D. 12/04/2020 4:[address] 12/04/20 15:04 CT thoracic spine w con, CT lumbar spine w con HISTORY: 74 years-old Female pain acute pain of the mid and low back with acute leukocytosis. COMPARISON: CT chest, abdomen and pelvis of same day, chest CT 10/18/2020, CT abdomen and pelvis 05/12/2018. TECHNIQUE: Multiple axial CT images of the thoracic and lumbar spine were obtained following the intravenous administration of 91 mL Optiray 320. A dose lowering technique was used consistent with the principals of ALARA. FINDINGS: CT THORACIC: Demineralized appearance of the bones. Mild multilevel intervertebral disc space narrowing. Multilevel spondylitic spurring, moderate anteriorly at T8-T11 with degenerative partial bony fusion at T8-T9. Multilevel facet arthrosis, severe within the upper thoracic spine. No acute fracture, subluxation or endplate erosion. No suspicious bone lesions of the thoracic spine identified. T5 vertebral body hemangioma. The imaged ribs appear intact. Moderate layering pleural effusions with dependent bibasilar consolidation, left greater than right. No paravertebral edema. Cardiomegaly. CT LUMBAR: Splenomegaly redemonstrated. Moderate atherosclerosis of the abdominal aorta. Multifocal wall thickening of the colon with mucosal hyperemia colonic stranding. Prominent periportal lymph nodes measure up to 9 mm. Multilevel intervertebral disc space narrowing, moderate to severe at L4-L5 and L5-S1 with vacuum disc phenomenon, moderate spondylitic spurring with posterior disc osteophyte complex formations. Severe facet arthrosis of the mid and lower lumbar spine. T12 vertebral body hemangioma. 2.0 cm lucent lesion of the L1 vertebral body appears unchanged dating back to least 2019 and is likely benign. There are no suspicious lytic or blastic bony lesions identified. No acute fracture, subluxation or endplate erosion. Unchanged mild superior endplate compression at L4. There is no sacral insufficiency fracture. 8 mm sclerotic focus of the mid right sacrum on image 2:15 is unchanged from comparison suggestive of a bone island. Evaluation of the central canal and neuroforamina is better assessed by MRI. No high-grade central canal or foraminal narrowing identified. Posterior annular disc bulges are noted at several levels. IMPRESSION: 1. No acute fracture or subluxation. 2. Degenerative changes above. No suspicious bone lesions or endplate erosions. 3. Moderate layering pleural effusions with dependent bibasilar consolidation. 4. Partially imaged colonic wall thickening with mucosal hyperemia and pericolonic stranding. Please refer to CT chest, abdomen and pelvis study of same day for additional findings. ACT 112: Negative or not required by law. The above report was generated using voice recognition software. It may contain grammatical, syntax or spelling errors. Electronically signed by: Stanford Lynn M.D. 12/04/2020 4:[address] 12/04/20 15:04 CT thoracic spine w con, CT lumbar spine w con HISTORY: 74 years-old Female pain acute pain of the mid and low back with acute leukocytosis. COMPARISON: CT chest, abdomen and pelvis of same day, chest CT 10/18/2020, CT abdomen and pelvis 05/12/2018. TECHNIQUE: Multiple axial CT images of the thoracic and lumbar spine were obtained following the intravenous administration of 91 mL Optiray 320. A dose lowering technique was used consistent with the principals of ALARA. FINDINGS: CT THORACIC: Demineralized appearance of the bones. Mild multilevel intervertebral disc space narrowing. Multilevel spondylitic spurring, moderate anteriorly at T8-T11 with degenerative partial bony fusion at T8-T9. Multilevel facet arthrosis, severe within the upper thoracic spine. No acute fracture, subluxation or endplate erosion. No suspicious bone lesions of the thoracic spine identified. T5 vertebral body hemangioma. The imaged ribs appear intact. Moderate layering pleural effusions with dependent bibasilar consolidation, left greater than right. No paravertebral edema. Cardiomegaly. CT LUMBAR: Splenomegaly redemonstrated. Moderate atherosclerosis of the abdominal aorta. Multifocal wall thickening of the colon with mucosal hyperemia colonic stranding. Prominent periportal lymph nodes measure up to 9 mm. Multilevel intervertebral disc space narrowing, moderate to severe at L4-L5 and L5-S1 with vacuum disc phenomenon, moderate spondylitic spurring with posterior disc osteophyte complex formations. Severe facet arthrosis of the mid and lower lumbar spine. T12 vertebral body hemangioma. 2.0 cm lucent lesion of the L1 vertebral body appears unchanged dating back to least 2019 and is likely benign. There are no suspicious lytic or blastic bony lesions identified. No acute fracture, subluxation or endplate erosion. Unchanged mild superior endplate compression at L4. There is no sacral insufficiency fracture. 8 mm sclerotic focus of the mid right sacrum on image 2:15 is unchanged from comparison suggestive of a bone island. Evaluation of the central canal and neuroforamina is better assessed by MRI. No high-grade central canal or foraminal narrowing identified. Posterior annular disc bulges are noted at several levels. IMPRESSION: 1. No acute fracture or subluxation. 2. Degenerative changes above. No suspicious bone lesions or endplate erosions. 3. Moderate layering pleural effusions with dependent bibasilar consolidation. 4. Partially imaged colonic wall thickening with mucosal hyperemia and pericolonic stranding. Please refer to CT chest, abdomen and pelvis study of same day for additional findings. ACT 112: Negative or not required by law. The above report was generated using voice recognition software. It may contain grammatical, syntax or spelling errors. Electronically signed by: Stanford Lynn M.D. 12/04/2020 4:36 PM .
[2020-12-04] MEDS ORDERED: OPTIRAY 320 100ml IV ONE (16:02)
--- NOTE | 2020-12-04 16:03 | XRay Report ---
XR cervical spine 2 or 3V CLINICAL HISTORY: Neck pain. COMPARISON STUDY: None. FINDINGS: There is straightening of the cervical spine. The cervical spine the dorsum C1-T1. No fract ure or subluxation. Prevertebral soft tissues and the C1-C2 interval appear intact. Moderate facet de generative changes seen throughout the cervical spine. There is moderate to severe degenerative disc disease throughout the cervical spine. IMPRESSION: Moderate to severe degenerative changes throughout the cervical spine. No fractures. ACT 112: Negative or not required by law. Electronically signed by: Ricardo Villanueva M.D. 12/04/2020 4:02 PM
[2020-12-04 16:35] LABS: INR 1.3 (0.9-1.1); Partial Thromboplastin Ratio 1.3; Partial Thromboplastin Time 34.4 Seconds (21.0-31.0)
--- NOTE | 2020-12-04 16:37 | CT Scan Report ---
CT thoracic spine w con, CT lumbar spine w con HISTORY: 74 years-old Female pain acute pain of the mid and low back with acute leukocytosis. COMPARISON: CT chest, abdomen and pelvis of same day, chest CT 10/18/2020, CT abdomen and pelvis 2018. TECHNIQUE: Multiple axial CT images of the thoracic and lumbar spine were obtained following the intr avenous administration of 91 mL Optiray 320. A dose lowering technique was used consistent with the p rincipals of NORMA. FINDINGS: CT THORACIC: Demineralized appearance of the bones. Mild multilevel intervertebral disc space narrowing. Multileve l spondylitic spurring, moderate anteriorly at T8-T11 with degenerative partial bony fusion at T8-T9. Multilevel facet arthrosis, severe within the upper thoracic spine. No acute fracture, subluxation o r endplate erosion. No suspicious bone lesions of the thoracic spine identified. T5 vertebral body he mangioma. The imaged ribs appear intact. Moderate layering pleural effusions with dependent bibasilar consolidation, left greater than right. No paravertebral edema. Cardiomegaly. CT LUMBAR: Splenomegaly redemonstrated. Moderate atherosclerosis of the abdominal aorta. Multifocal wall thicken ing of the colon with mucosal hyperemia colonic stranding. Prominent periportal lymph nodes measure u p to 9 mm. Multilevel intervertebral disc space narrowing, moderate to severe at L4-L5 and L5-S1 with vacuum dis c phenomenon, moderate spondylitic spurring with posterior disc osteophyte complex formations. Severe facet arthrosis of the mid and lower lumbar spine. T12 vertebral body hemangioma. 2.0 cm lucent lesi on of the L1 vertebral body appears unchanged dating back to least 2018 and is likely benign. There a re no suspicious lytic or blastic bony lesions identified. No acute fracture, subluxation or endplate erosion. Unchanged mild superior endplate compression at L4. There is no sacral insufficiency fractu re. 8 mm sclerotic focus of the mid right sacrum on image 2:15 is unchanged from comparison suggestiv e of a bone island. Evaluation of the central canal and neuroforamina is better assessed by MRI. No h igh-grade central canal or foraminal narrowing identified. Posterior annular disc bulges are noted at several levels. IMPRESSION: 1. No acute fracture or subluxation. 2. Degenerative changes above. No suspicious bone lesions or endplate erosions. 3. Moderate layering pleural effusions with dependent bibasilar consolidation. 4. Partially imaged colonic wall thickening with mucosal hyperemia and pericolonic stranding. Please refer to CT chest, abdomen and pelvis study of same day for additional findings. ACT 112: Negative or not required by law. The above report was generated using voice recognition software. It may contain grammatical, syntax o r spelling errors. Electronically signed by: Stanford Lynn M.D. 12/04/2020 4:36 PM
--- NOTE | 2020-12-04 16:41 | CT Scan Report ---
CT cervical spine w con HISTORY: 74 years-old Female pain acute neck pain without reported trauma COMPARISON: CT thoracic and lumbar spine studies of same day TECHNIQUE: Multiple axial CT images of the cervical spine were obtained following the intravenous min istration of 91 mL Optiray 320. A dose lowering technique was used consistent with the principals of NORMA. FINDINGS: Demineralized appearance the bones. Multifocal intervertebral disc space narrowing, severe at C5-C6. Moderate multilevel spondylitic spurring with chondrocalcinosis of the disc spaces and moderate-sized posterior disc osteophyte complex formations. Severe multilevel facet arthrosis. No acute fracture o r subluxation. No endplate erosions. Multilevel neuroforaminal narrowing. The imaged ribs appear inta ct. No prevertebral edema. Calcified plaque of the carotid bulbs and proximal internal carotid arteries. Moderate size layering pleural effusions are partially imaged. No pneumothorax. IMPRESSION: 1. No acute cervical spine fracture or subluxation. 2. Degenerative changes as above. 3. Moderate pleural effusions. ACT 112: Negative or not required by law. The above report was generated using voice recognition software. It may contain grammatical, syntax o r spelling errors. Electronically signed by: Stanford Lynn M.D. 12/04/2020 4:40 PM
--- NOTE | 2020-12-04 16:45 | CT Scan Report ---
CT SCAN OF THE CHEST, ABDOMEN, AND PELVIS WITH IV CONTRAST CLINICAL HISTORY: Leukocytosis. Atypical chest pain. Generalized abdominal pain. COMPARISON STUDY: Chest CT dated 10/18/2020. Abdominal CT dated 05/12/2018. TECHNIQUE: Following the IV administration of 91 of Optiray 320, CT scan of the chest, abdomen, and p chhaya was performed from the thoracic inlet to the proximal femora. Images are reviewed in the axial, sagittal, and coronal planes. IV contrast was administered without complication. A dose lowering te chnique was utilized adhering to the principles of ALARA. CT DOSE: 1611.40 mGy.cm FINDINGS: CHEST: Thyroid: Imaged portions of the thyroid gland are normal in size and attenuation. Thoracic aorta: There is atherosclerotic calcification of the thoracic aorta, which is normal in emma caleb and demonstrates standard 3-vessel arch anatomy. No dissection is seen. Pulmonary vasculature: The pulmonary trunk is normal in caliber. There are no filling defects identif ied in the central pulmonary vessels to indicate pulmonary embolus. Note that this examination was no t protocoled for evaluation of the pulmonary arteries. Heart: The heart is normal in size and without pericardial effusion. Coronary arteries are densely ca lcified. Lungs and pleural spaces: Evaluation of the lung parenchyma is modestly degraded by motion artifact. The trachea and central airways are clear. There are moderate pleural effusions with dependent consol idation. Scattered calcified granulomas are observed. Mediastinum: There is no mediastinal lymphadenopathy. Mari: There are calcified left hilar nodes. No hilar adenopathy is identified. Axillae: There is no axillary lymphadenopathy. Bony thorax: The skeletal structures are osteopenic. Mild spondylotic changes noted in the thoracic s pine. A hemangioma Is noted in the body of T12. No lytic or blastic lesions are identified. ABDOMEN AND PELVIS: Liver: The contrast-enhanced liver is normal in size, contour, and attenuation. There is no intra- or extrahepatic biliary ductal dilatation. The hepatic veins and portal veins are patent. Gallbladder: Surgically absent noting clips in the gallbladder fossa. Spleen: Normal in size and attenuation. There are calcified splenic granulomas. 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 Pancreas: Moderately atrophic and grossly unremarkable. Adrenal glands: Unremarkable. Kidneys: The contrast enhanced kidneys demonstrate cortical atrophy and are without hydronephrosis. T he kidneys enhance symmetrically. Abdominal vasculature: The abdominal aorta is normal in course and caliber noting advanced atheroscle rotic calcification. Stomach and bowel: There is a tiny hiatal hernia. There is diffuse wall thickening and edema seen thr oughout the colon with associated mucosal hyperemia as well as pericolonic inflammation and fluid. Th e appearance is consistent with a nonspecific pancolitis. Mild inflammatory change is also seen in th e terminal ileum, likely related to adjacent colitis. Moderate diverticulosis of the colon is noted. There is no definitive CT evidence of acute cholecystitis. There is no bowel obstruction. A portion o f the appendix is seen on image #310. The appendix is not well evaluated. Peritoneum: There is trace pelvic ascites. No intraperitoneal free air is identified. There is a smal l fat-containing umbilical hernia. A large fat-containing infraumbilical hernia is seen to the right of midline on image #272. Lymphadenopathy: None. Pelvic viscera: The bladder and uterus are normal as visualized. A 5.2 x 3.9 cm complex lesion is aga in seen in the right adnexa on image #337. This is likely related to the right ovary. Skeletal structures: The skeletal structures are osteopenic. There is moderate lumbosacral spondylosi s. Hemangiomas are noted in the bodies of L1, L4, and L5. No lytic or blastic lesions are seen. IMPRESSION: 1. Findings are consistent with a nonspecific pancolitis. This is likely on an infectious or inflamma tory basis and clinical correlation will be required. 2. Moderate pleural effusions with associated dependent consolidation. This likely represents atelect asis. Correlate clinically for evidence of superimposed pneumonia. 3. There is a 5.2 cm complex lesion seen in the right adnexa, likely related to the right ovary. This abnormal finding, and ovarian neoplasm is to be excluded. Follow-up with a nonemergent pelvic ultras ound and gynecology assessment is recommended. 4. Additional findings as above. ACT 112: Positive. There are findings on this exam that require communication between the performing entity and the patient following Patient Test Result Information Act ([place] Act 112) guidelines. Electronically signed by: Aamir Herring M.D. 12/04/2020 4:44 PM
--- NOTE | 2020-12-04 16:46 | XRay Report ---
LUMBAR SPINE 3 VIEWS CLINICAL HISTORY: Atraumatic low back pain. FINDINGS: 3 views of the lumbar spine are correlated with abdominal CT dated 05/12/2018. The skeletal structures are osteopenic. There is no radiographic evidence of acute fracture or malalignment involv ing the lumbar spine. Vertebral body height and alignment are maintained. Anterior and lateral margin al osteophytes are seen throughout. The transverse and spinous processes appear intact. Multilevel fa cet arthropathy is noted in the lower lumbar region. Mild to moderate disc space narrowing is seen at all lumbar levels, with multilevel posterior disc osteophyte complexes. The visualized bony pelvis a ppears intact. Sclerotic change is noted in the sacroiliac joints. Cholecystectomy clips are identifi ed in the right upper quadrant. There is no bowel obstruction. Advanced atherosclerotic calcification is seen in the abdominal aorta. IMPRESSION: 1. No acute bony abnormality is identified. 2. Osteopenia and spondylotic change as above. Dictated: 12/04/2020 3:50 PM Transcribed: 12/04/2020 4:15 PM Vanesa [id number] [email or web address] Electronically signed by: Aamir Herring M.D. 12/04/2020 4:44 PM
[2020-12-04] MEDS ORDERED: ACETAMINOPHEN 1,000 MG/100 ML VIAL IV STA (17:53)
[2020-12-04] MEDS ORDERED: dexAMETHasone**PF** 10 MG/ML VIAL IV ONE (17:53)
[2020-12-04] MEDS ORDERED: SODIUM CHLORIDE 0.9% 500 ML IV SCH (18:00)
[2020-12-04] MEDS: POTASSIUM CHLORIDE / WTR 10 MEQ/100 ML PLCT IV SCH ×2 (18:26→19:40)
[2020-12-04 18:32] LABS: Appearance Urine Clear (Clear); Bacteria Urine Automated Negative (Negative); Bilirubin Urine Negative (Negative); Blood Urine Trace (Negative); Color Urine Yellow; Epithelial Cell Urine Auto 20-30 /lpf (0-5); Glucose Urine UA Negative (Negative); Ketones Urine Negative (Negative); Leukocyte Esterase Urine Negative (Negative); Nitrite Urine Negative (Negative); Protein Urine 1+ (Negative); RBC Urine Automated 0-4 /hpf (0-4); Specific Gravity Urine > 1.045 (1.000-1.030); Urobilinogen Urine Negative (Negative); pH Urine 5.5 (4.5-7.5)
--- NOTE | 2020-12-04 19:25 | History & Physical Report ---
Date of Service December 04, 2020 Assessment & Plan (1) Colitis: Plan: -Admit to [facility] -Patient presenting from home with reports of ongoing back pain and generalized weakness for the past 3 months and found to be febrile by home health nursing this morning -In the ED, CT ABD/pelvis shows signs of nonspecific colitis -WBC 18K, afebrile in ED. Does not appear septic -Stool for C. difficile and culture -Start empiric IV Cipro and IV Flagyl -Clear liquid diet, IVF (2) Back pain: (3) Weakness: Plan: -Back pain seems to be a chronic issue -Extensive CT scans performed in ED negative for acute bony abnormality -Since pain is generalized, will hold on MRIs at this time -PT/OT (4) Adnexal mass: Plan: -CT ABD/pelvis shows a right adnexal mass -Follow-up pelvic ultrasound -BUSINESS ANALYTICS ANALYST consult -Per chart review, seems as though this was partially worked up in the past however patient was lost to follow-up (5) Chronic diastolic CHF (congestive heart failure): Plan: -Hold Bumex while receiving IVF as above -Monitor volume status closely (6) Chronic respiratory failure with hypoxia: (7) Moderate COPD (chronic obstructive pulmonary disease): Plan: -No signs of acute exacerbation -Continue home inhalers -Saturating well on chronic 2 L O2 (8) DM type 2 (diabetes mellitus, type 2): Plan: -Hgb A1c 5.6 09/2020 -Lantus and NovoLog per protocol while hospitalized (9) Hypertension: Plan: -BP controlled, continue amlodipine and metoprolol (10) ALL (acute lymphoblastic leukemia): Plan: -Continue Sprycel (11) Pulmonary embolism: Plan: -On Coumadin, INR 1.3 -Give Coumadin 10 mg tonight then resume home dosing (12) DVT prophylaxis: Plan: -On Coumadin, INR 1.3 -SCDs until INR > 2.0 History of Present Illness Chief Complaint: Back pain, weakness Primary Care Provider: Natalia Brambila DO 74-year-old female with PMH DM type II, HTN, CKD stage III, chronic hypoxic respiratory failure, COPD, ALL, and other problems listed below who presents the ED for evaluation of back pain and generalized weakness. Patient reports ongoing back pain for the past 3 months. Patient reports she experiences pain from her neck down to her waist. She reports that she feels generally weak and can usually only ambulate a few steps to go to the bathroom. Today, patient was noted to have a fever by home health nursing. She was sent to the ED for further evaluation. Patient denies any loss of bowel or bladder function. Denies chest pain or shortness of breath. No lightheadedness, dizziness, diaphoresis, syncopal events. Denies abdominal pain, nausea, vomiting. Reports chronic diarrhea which is unchanged from baseline. No bright red bleeding per rectum or dark tarry stools. She denies chills. No urinary symptoms. In the ED, patient is hemodynamically stable. Labs show WBC 18K, K+ 3.1. UA does not suggest infection. Patient had extensive CTs completed that were negative for acute bony abnormality. CT ABD/pelvis shows signs of nonspecific colitis and also right adnexal mass. Patient was given IV Tylenol, IV dexamethasone, IV morphine x 2 doses, IV Zofran, potassium replacement, IVF. Allergies Allergy/AdvReac Type Severity Reaction Status Date / Time No Known Allergies Allergy Verified 12/04/20 14:10 Home Medications Medication Instructions Recorded Confirmed Type tramadol 50 mg tablet 50 mg PO Q6H PRN 04/05/18 12/04/20 History dasatinib 70 mg tablet (Sprycel) 70 mg PO BID 06/12/18 12/04/20 History atorvastatin 40 mg tablet 40 mg PO PM 02/23/19 12/04/20 History bumetanide 1 mg tablet 1 mg PO DAILY 02/23/19 12/04/20 History insulin detemir U-100 100 unit/mL 14 unit SUBCUT USEASDIRECTD 02/23/19 12/04/20 History (3 mL) subcutaneous pen (Levemir FlexTouch U-100 Insulin) ipratropium 0.5 mg-albuterol 3 mg 3 ml INHALATION BID 02/23/19 12/04/20 History (2.5 mg base)/3 mL nebulization soln lorazepam 0.5 mg tablet 0.5 mg SUBLINGUAL BID PRN 02/23/19 12/04/20 History metoprolol succinate 25 mg 25 mg PO DAILY 02/23/19 12/04/20 History tablet,extended release 24 hr potassium chloride 20 mEq 20 meq PO DAILY 02/23/19 12/04/20 History tablet,extended release Lactobacillus acidophilus 10 10,000 mmu cells PO DAILY 05/28/20 12/04/20 History billion cell capsule (Probiotic) cyanocobalamin (vitamin B-12) 100 100 mcg PO DAILY 05/28/20 12/04/20 History mcg tablet folic acid 1 mg tablet 1 mg PO DAILY 05/28/20 12/04/20 History omeprazole 20 mg capsule,delayed 20 mg PO BID 05/28/20 12/04/20 History release escitalopram oxalate 10 mg tablet 10 mg PO DAILY 10/17/20 12/04/20 History triamcinolone acetonide 0.1 % 1 applic TOPICAL BID 10/17/20 12/04/20 History topical cream umeclidinium 62.5 mcg-vilanterol 1 inh INHALATION DAILY 10/17/20 12/04/20 History 25 mcg/actuation powdr for inhalation (Anoro Ellipta) amlodipine 5 mg tablet (Norvasc) 10 mg PO DAILY #30 tab 10/20/20 12/04/20 Rx ferrous sulfate 325 mg (65 mg 325 mg PO Q2D 12/04/20 12/04/20 History iron) tablet warfarin 5 mg tablet 5 mg PO SUTUWETHSA 12/04/20 12/04/20 History warfarin 5 mg tablet 7.5 mg PO MOFR 12/04/20 12/04/20 History Past Med/Surg History Medical History (Updated 12/04/20 @ 19:38 by RAFFI Scott) ALL (acute lymphoblastic leukemia) Anticoagulated on Coumadin Bilateral pleural effusion Chronic anemia Chronic diastolic CHF (congestive heart failure) Chronic respiratory failure with hypoxia CKD (chronic kidney disease), stage III COPD (chronic obstructive pulmonary disease) Depression Diabetes mellitus, type II DM type 2 (diabetes mellitus, type 2) Dyslipidemia GERD (gastroesophageal reflux disease) Hypertension Lumbar disc disease Moderate COPD (chronic obstructive pulmonary disease) MRSA (methicillin resistant Staphylococcus aureus) septicemia Mucoid impaction of bronchi Nocturnal hypoxia Osteoarthritis Ovarian cyst Pulmonary embolism Secondary hyperparathyroidism Splenomegaly Tobacco use Transfusion reaction Surgical History H/O tubal ligation History of cholecystectomy Family History Denies family history of Coronary heart disease Social History Smoking Status: Former smoker Tobacco Type: Cigarettes Hx Alcohol Use: No Hx Substance Use: No Preferred Language: [place] Communication Ability: Effective Visual Impairment: No Limitations Hearing Ability: Normal Exhibit Electrician Required: No Beliefs That Will Affect Care: None marital status: / Current Living Situation: Alone Current Living Situation Comment: House Feels Safe at Home: Yes Assistive Devices: Oxygen - Continuous Review of Systems Review of Systems: ROS per HPI, all other systems reviewed and negative Physical Exam Constitutional: WD/WN, vitals as above + ill appearing (Chronically) Eyes: PERRL, conjunctivae normal, anicteric sclerae ENMT: external ear and nose normal, oropharynx normal Respiratory: normal respiratory effort, lungs clear to auscultation Cardiovascular: Rate/Rhythm: regular rate and regular rhythm Vessels: nor mal peripheral pulses Extremities: no edema Gastrointestinal (Abdomen): normal bowel sounds, soft, nontender, no hepatosplenomegaly Musculoskeletal: no cyanosis or clubbing, extremities motor strength 5/5 Skin: no rashes, warm and dry Neurologic: PERRL, EOMI, accommodation nl, no face palsy, no dysarthria Psychiatric: A+Ox3, euthymic affect Results & Data Results & Data ([facility]) Vital Signs (Past 12 Hours) Vital Signs Temp Pulse Pulse Resp BP BP Pulse Ox 12/04/20 19:11 93 H 16 113/57 L 96 12/04/20 17:00 100 H 18 114/68 96 12/04/20 15:00 102 H 18 118/80 93 12/04/20 13:33 16 117/71 97 12/04/20 11:53 36.7 C 89 16 142/69 H 95 Laboratory Results Short CBC 12/04/20 Range/Units 14:10 WBC 18.89 H (4.8-10.8) K/uL Hgb 12.6 (12.0-16.0) g/dL Hct 38.0 (37-47) % Plt Count 347 (130-400) K/uL BMP 12/04/20 14:10 Sodium 131 L Potassium 3.1 L Chloride 94 L Carbon Dioxide 32 BUN 21 H Creatinine 1.06 Glucose 154 H Calcium 8.6 Liver Function 12/04/20 Range/Units 14:10 Total Bilirubin 0.6 (0.2-1) mg/dl AST 11 L (15-37) U/L ALT 15 (12-78) U/L Alkaline Phosphatase 93 (45-117) U/L Albumin 2.3 L (3.4-5.0) gm/dl Urine 12/04/20 Range/Units 18:20 Urine Color Yellow Urine Appearance Clear (Clear) Urine pH 5.5 (4.5-7.5) Ur Specific [place] > 1.045 H (1.000-1.030) Urine Protein 1+ H (Negative) Urine Glucose (UA) Negative (Negative) Diagnostic Findings Cervical Spine X-Ray 12/04/20 12:42 XR cervical spine 2 or 3V CLINICAL HISTORY: Neck pain. COMPARISON STUDY: None. FINDINGS: There is straightening of the cervical spine. The cervical spine the dorsum C1-T1. No fracture or subluxation. Prevertebral soft tissues and the C1- C2 interval appear intact. Moderate facet degenerative changes seen throughout the cervical spine. There is moderate to severe degenerative disc disease throughout the cervical spine. IMPRESSION: Moderate to severe degenerative changes throughout the cervical spine. No fractures. ACT 112: Negative or not required by law. Electronically signed by: Ricardo Villanueva M.D. 12/04/2020 4:02 PM Lumbar Spine X-Ray 12/04/20 12:42 LUMBAR SPINE 3 VIEWS CLINICAL HISTORY: Atraumatic low back pain. FINDINGS: 3 views of the lumbar spine are correlated with abdominal CT dated 05/12/2018. The skeletal structures are osteopenic. There is no radiographic evidence of acute fracture or malalignment involving the lumbar spine. Vertebral body height and alignment are maintained. Anterior and lateral marginal osteophytes are seen throughout. The transverse and spinous processes appear intact. Multilevel facet arthropathy is noted in the lower lumbar region. Mild to moderate disc space narrowing is seen at all lumbar levels, with multilevel posterior disc osteophyte complexes. The visualized bony pelvis appears intact. Sclerotic change is noted in the sacroiliac joints. Cholecystectomy clips are identified in the right upper quadrant. There is no bowel obstruction. Advanced atherosclerotic calcification is seen in the abdominal aorta. IMPRESSION: 1. No acute bony abnormality is identified. 2. Osteopenia and spondylotic change as above. Dictated: 12/04/2020 3:50 PM Transcribed: 12/04/2020 4:15 PM [facility] [id number] [facility] Electronically signed by: Aamir Herring M.D. 12/04/2020 4:44 PM Thoracic Spine X-Ray 12/04/20 12:42 XR thoracic spine 3V routine HISTORY: 74 years-old Female pain eval for fx acute back pain without reported trauma COMPARISON: Chest radiograph 10/20/2020, chest CT 10/18/2020 TECHNIQUE: 3 views of the thoracic spine FINDINGS: Mild to moderate multilevel disc space narrowing with moderate mid to lower thoracic spondylotic spurring and moderate multilevel facet arthrosis. No acute fracture or subluxation identified. Upper thoracic segments are suboptimally visualized secondary to overlying soft tissue. Cardiomegaly with pulmonary vascular congestion, interstitial coarsening and layering pleural effusions with bibasilar consolidation. Left lung base granuloma. IMPRESSION: 1. No acute fracture or subluxation identified. 2. Cardiomegaly with pulmonary edema 3. Layering pleural effusions with bibasilar consolidation. ACT 112: Negative or not required by law. The above report was generated using voice recognition software. It may contain grammatical, syntax or spelling errors. Electronically signed by: Stanford Lynn M.D. 12/04/2020 3:27 PM Abdomen/Pelvis CT 12/04/20 15:01 CT SCAN OF THE CHEST, ABDOMEN, AND PELVIS WITH IV CONTRAST CLINICAL HISTORY: Leukocytosis. Atypical chest pain. Generalized abdominal pain. COMPARISON STUDY: Chest CT dated 10/18/2020. Abdominal CT dated 05/12/2018. TECHNIQUE: Following the IV administration of 91 of Optiray 320, CT scan of the chest, abdomen, and pelvis was performed from the thoracic inlet to the proximal femora. Images are reviewed in the axial, sagittal, and coronal planes. IV contrast was administered without complication. A dose lowering technique was utilized adhering to the principles of ALARA. CT DOSE: 1611.40 mGy.cm FINDINGS: CHEST: Thyroid: Imaged portions of the thyroid gland are normal in size and attenuation. Thoracic aorta: There is atherosclerotic calcification of the thoracic aorta, which is normal in caliber and demonstrates standard 3-vessel arch anatomy. No dissection is seen. Pulmonary vasculature: The pulmonary trunk is normal in caliber. There are no filling defects identified in the central pulmonary vessels to indicate pulmonary embolus. Note that this examination was not protocoled for evaluation of the pulmonary arteries. Heart: The heart is normal in size and without pericardial effusion. Coronary arteries are densely calcified. Lungs and pleural spaces: Evaluation of the lung parenchyma is modestly degraded by motion artifact. The trachea and central airways are clear. There are moderate pleural effusions with dependent consolidation. Scattered calcified granulomas are observed. Mediastinum: There is no mediastinal lymphadenopathy. Mari: There are calcified left hilar nodes. No hilar adenopathy is identified. Axillae: There is no axillary lymphadenopathy. Bony thorax: The skeletal structures are osteopenic. Mild spondylotic changes noted in the thoracic spine. A hemangioma Is noted in the body of T12. No lytic or blastic lesions are identified. ABDOMEN AND PELVIS: Liver: The contrast-enhanced liver is normal in size, contour, and attenuation. There is no intra- or extrahepatic biliary ductal dilatation. The hepatic veins and portal veins are patent. Gallbladder: Surgically absent noting clips in the gallbladder fossa. Spleen: Normal in size and attenuation. There are calcified splenic granulomas. There is a 9 mm peripheral calcified splenic artery aneurysm. Pancreas: Moderately atrophic and grossly unremarkable. Adrenal glands: Unremarkable. Kidneys: The contrast enhanced kidneys demonstrate cortical atrophy and are without hydronephrosis. The kidneys enhance symmetrically. Abdominal vasculature: The abdominal aorta is normal in course and caliber noting advanced atherosclerotic calcification. Stomach and bowel: There is a tiny hiatal hernia. There is diffuse wall thickening and edema seen throughout the colon with associated mucosal hyperemia as well as pericolonic inflammation and fluid. The appearance is consistent with a nonspecific pancolitis. Mild inflammatory change is also seen in the terminal ileum, likely related to adjacent colitis. Moderate diverticulosis of the colon is noted. There is no definitive CT evidence of acute cholecystitis. There is no bowel obstruction. A portion of the appendix is seen on image #310. The appendix is not well evaluated. Peritoneum: There is trace pelvic ascites. No intraperitoneal free air is identified. There is a small fat-containing umbilical hernia. A large fat- containing infraumbilical hernia is seen to the right of midline on image #272. Lymphadenopathy: None. Pelvic viscera: The bladder and uterus are normal as visualized. A 5.2 x 3.9 cm complex lesion is again seen in the right adnexa on image #337. This is likely related to the right ovary. Skeletal structures: The skeletal structures are osteopenic. There is moderate lumbosacral spondylosis. Hemangiomas are noted in the bodies of L1, L4, and L5. No lytic or blastic lesions are seen. IMPRESSION: 1. Findings are consistent with a nonspecific pancolitis. This is likely on an infectious or inflammatory basis and clinical correlation will be required. 2. Moderate pleural effusions with associated dependent consolidation. This likely represents atelectasis. Correlate clinically for evidence of superimposed pneumonia. 3. There is a 5.2 cm complex lesion seen in the right adnexa, likely related to the right ovary. This abnormal finding, and ovarian neoplasm is to be excluded. Follow-up with a nonemergent pelvic ultrasound and gynecology assessment is recommended. 4. Additional findings as above. ACT 112: Positive. There are findings on this exam that require communication between the performing entity and the patient following Patient Test Result Information Act ([place] Act 112) guidelines. Electronically signed by: Aamir Herring M.D. 12/04/2020 4:[address] 12/04/20 15:04 CT cervical spine w con HISTORY: 74 years-old Female pain acute neck pain without reported trauma COMPARISON: CT thoracic and lumbar spine studies of same day TECHNIQUE: Multiple axial CT images of the cervical spine were obtained following the intravenous ministration of 91 mL Optiray 320. A dose lowering technique was used consistent with the principals of ALARA. FINDINGS: Demineralized appearance the bones. Multifocal intervertebral disc space narrowing, severe at C5-C6. Moderate multilevel spondylitic spurring with chondrocalcinosis of the disc spaces and moderate-sized posterior disc osteophyte complex formations. Severe multilevel facet arthrosis. No acute fracture or subluxation. No endplate erosions. Multilevel neuroforaminal narrowing. The imaged ribs appear intact. No prevertebral edema. Calcified plaque of the carotid bulbs and proximal internal carotid arteries. Moderate size layering pleural effusions are partially imaged. No pneumothorax. IMPRESSION: 1. No acute cervical spine fracture or subluxation. 2. Degenerative changes as above. 3. Moderate pleural effusions. ACT 112: Negative or not required by law. The above report was generated using voice recognition software. It may contain grammatical, syntax or spelling errors. Electronically signed by: Stanford Lynn M.D. 12/04/2020 4:[address] 12/04/20 15:04 CT SCAN OF THE CHEST, ABDOMEN, AND PELVIS WITH IV CONTRAST CLINICAL HISTORY: Leukocytosis. Atypical chest pain. Generalized abdominal pain. COMPARISON STUDY: Chest CT dated 10/18/2020. Abdominal CT dated 05/12/2018. TECHNIQUE: Following the IV administration of 91 of Optiray 320, CT scan of the chest, abdomen, and pelvis was performed from the thoracic inlet to the proximal femora. Images are reviewed in the axial, sagittal, and coronal planes. IV contrast was administered without complication. A dose lowering technique was utilized adhering to the principles of ALARA. CT DOSE: 1611.40 mGy.cm FINDINGS: CHEST: Thyroid: Imaged portions of the thyroid gland are normal in size and attenuation. Thoracic aorta: There is atherosclerotic calcification of the thoracic aorta, which is normal in caliber and demonstrates standard 3-vessel arch anatomy. No dissection is seen. Pulmonary vasculature: The pulmonary trunk is normal in caliber. There are no filling defects identified in the central pulmonary vessels to indicate pulmonary embolus. Note that this examination was not protocoled for evaluation of the pulmonary arteries. Heart: The heart is normal in size and without pericardial effusion. Coronary arteries are densely calcified. Lungs and pleural spaces: Evaluation of the lung parenchyma is modestly degraded by motion artifact. The trachea and central airways are clear. There are moderate pleural effusions with dependent consolidation. Scattered calcified granulomas are observed. Mediastinum: There is no mediastinal lymphadenopathy. Mari: There are calcified left hilar nodes. No hilar adenopathy is identified. Axillae: There is no axillary lymphadenopathy. Bony thorax: The skeletal structures are osteopenic. Mild spondylotic changes noted in the thoracic spine. A hemangioma Is noted in the body of T12. No lytic or blastic lesions are identified. ABDOMEN AND PELVIS: Liver: The contrast-enhanced liver is normal in size, contour, and attenuation. There is no intra- or extrahepatic biliary ductal dilatation. The hepatic veins and portal veins are patent. Gallbladder: Surgically absent noting clips in the gallbladder fossa. Spleen: Normal in size and attenuation. There are calcified splenic granulomas. There is a 9 mm peripheral calcified splenic artery aneurysm. Pancreas: Moderately atrophic and grossly unremarkable. Adrenal glands: Unremarkable. Kidneys: The contrast enhanced kidneys demonstrate cortical atrophy and are without hydronephrosis. The kidneys enhance symmetrically. Abdominal vasculature: The abdominal aorta is normal in course and caliber noting advanced atherosclerotic calcification. Stomach and bowel: There is a tiny hiatal hernia. There is diffuse wall thickening and edema seen throughout the colon with associated mucosal hyperemia as well as pericolonic inflammation and fluid. The appearance is consistent with a nonspecific pancolitis. Mild inflammatory change is also seen in the terminal ileum, likely related to adjacent colitis. Moderate diverticulosis of the colon is noted. There is no definitive CT evidence of acute cholecystitis. There is no bowel obstruction. A portion of the appendix is seen on image #310. The appendix is not well evaluated. Peritoneum: There is trace pelvic ascites. No intraperitoneal free air is identified. There is a small fat-containing umbilical hernia. A large fat- containing infraumbilical hernia is seen to the right of midline on image #272. Lymphadenopathy: None. Pelvic viscera: The bladder and uterus are normal as visualized. A 5.2 x 3.9 cm complex lesion is again seen in the right adnexa on image #337. This is likely related to the right ovary. Skeletal structures: The skeletal structures are osteopenic. There is moderate lumbosacral spondylosis. Hemangiomas are noted in the bodies of L1, L4, and L5. No lytic or blastic lesions are seen. IMPRESSION: 1. Findings are consistent with a nonspecific pancolitis. This is likely on an infectious or inflammatory basis and clinical correlation will be required. 2. Moderate pleural effusions with associated dependent consolidation. This likely represents atelectasis. Correlate clinically for evidence of superimposed pneumonia. 3. There is a 5.2 cm complex lesion seen in the right adnexa, likely related to the right ovary. This abnormal finding, and ovarian neoplasm is to be excluded. Follow-up with a nonemergent pelvic ultrasound and gynecology assessment is recommended. 4. Additional findings as above. ACT 112: Positive. There are findings on this exam that require communication between the performing entity and the patient following Patient Test Result Information Act ([place] Act 112) guidelines. Electronically signed by: Aamir Herring M.D. 12/04/2020 4:[address] 12/04/20 15:04 CT thoracic spine w con, CT lumbar spine w con HISTORY: 74 years-old Female pain acute pain of the mid and low back with acute leukocytosis. COMPARISON: CT chest, abdomen and pelvis of same day, chest CT 10/18/2020, CT abdomen and pelvis 05/12/2018. TECHNIQUE: Multiple axial CT images of the thoracic and lumbar spine were obtained following the intravenous administration of 91 mL Optiray 320. A dose lowering technique was used consistent with the principals of NORMA. FINDINGS: CT THORACIC: Demineralized appearance of the bones. Mild multilevel intervertebral disc space narrowing. Multilevel spondylitic spurring, moderate anteriorly at T8-T11 with degenerative partial bony fusion at T8-T9. Multilevel facet arthrosis, severe within the upper thoracic spine. No acute fracture, subluxation or endplate erosion. No suspicious bone lesions of the thoracic spine identified. T5 vertebral body hemangioma. The imaged ribs appear intact. Moderate layering pleural effusions with dependent bibasilar consolidation, left greater than right. No paravertebral edema. Cardiomegaly. CT LUMBAR: Splenomegaly redemonstrated. Moderate atherosclerosis of the abdominal aorta. Multifocal wall thickening of the colon with mucosal hyperemia colonic stranding. Prominent periportal lymph nodes measure up to 9 mm. Multilevel intervertebral disc space narrowing, moderate to severe at L4-L5 and L5-S1 with vacuum disc phenomenon, moderate spondylitic spurring with posterior disc osteophyte complex formations. Severe facet arthrosis of the mid and lower lumbar spine. T12 vertebral body hemangioma. 2.0 cm lucent lesion of the L1 vertebral body appears unchanged dating back to least 2018 and is likely benign. There are no suspicious lytic or blastic bony lesions identified. No acute fracture, subluxation or endplate erosion. Unchanged mild superior endplate compression at L4. There is no sacral insufficiency fracture. 8 mm sclerotic focus of the mid right sacrum on image 2:15 is unchanged from comparison suggestive of a bone island. Evaluation of the central canal and neuroforamina is better assessed by MRI. No high-grade central canal or foraminal narrowing identified. Posterior annular disc bulges are noted at several levels. IMPRESSION: 1. No acute fracture or subluxation. 2. Degenerative changes above. No suspicious bone lesions or endplate erosions. 3. Moderate layering pleural effusions with dependent bibasilar consolidation. 4. Partially imaged colonic wall thickening with mucosal hyperemia and pericolonic stranding. Please refer to CT chest, abdomen and pelvis study of same day for additional findings. ACT 112: Negative or not required by law. The above report was generated using voice recognition software. It may contain grammatical, syntax or spelling errors. Electronically signed by: Stanford Lynn M.D. 12/04/2020 4:[address] 12/04/20 15:04 CT thoracic spine w con, CT lumbar spine w con HISTORY: 74 years-old Female pain acute pain of the mid and low back with acute leukocytosis. COMPARISON: CT chest, abdomen and pelvis of same day, chest CT 10/18/2020, CT abdomen and pelvis 05/12/2018. TECHNIQUE: Multiple axial CT images of the thoracic and lumbar spine were obtained following the intravenous administration of 91 mL Optiray 320. A dose lowering technique was used consistent with the principals of NORMA. FINDINGS: CT THORACIC: Demineralized appearance of the bones. Mild multilevel intervertebral disc space narrowing. Multilevel spondylitic spurring, moderate anteriorly at T8-T11 with degenerative partial bony fusion at T8-T9. Multilevel facet arthrosis, severe within the upper thoracic spine. No acute fracture, subluxation or endplate erosion. No suspicious bone lesions of the thoracic spine identified. T5 vertebral body hemangioma. The imaged ribs appear intact. Moderate layering pleural effusions with dependent bibasilar consolidation, left greater than right. No paravertebral edema. Cardiomegaly. CT LUMBAR: Splenomegaly redemonstrated. Moderate atherosclerosis of the abdominal aorta. Multifocal wall thickening of the colon with mucosal hyperemia colonic stranding. Prominent periportal lymph nodes measure up to 9 mm. Multilevel intervertebral disc space narrowing, moderate to severe at L4-L5 and L5-S1 with vacuum disc phenomenon, moderate spondylitic spurring with posterior disc osteophyte complex formations. Severe facet arthrosis of the mid and lower lumbar spine. T12 vertebral body hemangioma. 2.0 cm lucent lesion of the L1 vertebral body appears unchanged dating back to least 2018 and is likely benign. There are no suspicious lytic or blastic bony lesions identified. No acute fracture, subluxation or endplate erosion. Unchanged mild superior endplate compression at L4. There is no sacral insufficiency fracture. 8 mm sclerotic focus of the mid right sacrum on image 2:15 is unchanged from comparison suggestive of a bone island. Evaluation of the central canal and neuroforamina is better assessed by MRI. No high-grade central canal or foraminal narrowing identified. Posterior annular disc bulges are noted at several levels. IMPRESSION: 1. No acute fracture or subluxation. 2. Degenerative changes above. No suspicious bone lesions or endplate erosions. 3. Moderate layering pleural effusions with dependent bibasilar consolidation. 4. Partially imaged colonic wall thickening with mucosal hyperemia and pericolonic stranding. Please refer to CT chest, abdomen and pelvis study of same day for additional findings. ACT 112: Negative or not required by law. The above report was generated using voice recognition software. It may contain grammatical, syntax or spelling errors. Electronically signed by: Stanford Lynn M.D. 12/04/2020 4:36 PM Code Status & VTE Plan Code Status Patient is a DNR as per my discussion with her. VTE Prophylaxis Plan VTE Prophylaxis will be ordered: No Supervising Physician Co-Signing Physician Notes I saw this patient with the Nurse Practitioner, I participated in the history, physical, review of systems, and physical exam. I reviewed the medications with the patient and the Nurse Practitioner and helped reconcile the medications. I helped take a detailed family and social history as well. I formulated the assessment and plan personally with the Nurse Practitioner went over it with the patient. Physical Exam Gen-AAO x 3, NAD, ffebrile Head-NCAT, EOMI, PERRLA, Anicteric Sclera, No Posterior Pharyngeal Erythema Neck-Supple, No JVD, No Thyromegaly, No Masses, No LAD, No Bruits Lungs-Clear to Auscultation Bilaterally, No Rales, No Rhonchi, No Wheezing, No Crepitus Chest-No S4, +S1, +S2, No S3, No Murmurs, No Rubs, No Gallops, No Ectopy Abdomen-Soft, Bowel Sounds Present, Non Tender, Non Distended, No Hepatomegaly, No Splenomegaly, No Palpable Masses, No Rebound, No Rigidity, No Guarding Musculoskeletal-Full Range of Motion Bilaterally, No CVAT Extremities-No Cyanosis, No Clubbing, No Edema Nuero-Cranial Nerves II-XII grossly intact, Motor WNL, DTRs WNL, Strength WNL, Non Focal Psych-Normal Mood (1) Pulmonary embolism Acute cor pulmonale presence: without acute cor pulmonale Chronicity: unspecified Pulmonary embolism type: saddle Qualified Code(s): I26.92 - Saddle embolus of pulmonary artery without acute cor pulmonale
[2020-12-04 19:58] LABS: Magnesium 1.9 mg/dl (1.8-2.4)
[2020-12-04] MEDS ORDERED: SODIUM CHLORIDE 0.9% 1000ML 1,000 ML IV SCH (21:59)
[2020-12-04] MEDS ORDERED: GLUCAGON FOR INJ 1 MG VIAL SQ PRN (21:59)
[2020-12-04] MEDS ORDERED: DEXTROSE 50% 50 ML SYRINGE IV PRN (21:59)
[2020-12-04] MEDS ORDERED: CARBOHYDRATES FOR HYPOGLYCEMIA PO PRN (21:59)
[2020-12-04] MEDS ORDERED: POTASSIUM CHLORIDE CRTAB 20 MEQ TABCR PO ONE (21:59)
[2020-12-04] MEDS ORDERED: GLUCOSE 10 TABS/TUBE PO PRN (21:59)
[2020-12-04] MEDS ORDERED: WARFARIN SOD 10 MG TAB PO ONE (21:59)
[2020-12-04] MEDS ORDERED: ACETAMINOPHEN 325 MG TAB PO PRN (21:59)
[2020-12-04] MEDS ORDERED: GLUCOSE 40% GEL 15 GM TUBE PO PRN (21:59)
[2020-12-04] MEDS ORDERED: LORazepam 0.5 MG TAB SL PRN (21:59)
[2020-12-04] MEDS: CIPROFLOXACIN / D5W 400 MG/200 ML BAG IV SCH (23:16)
[2020-12-04] MEDS: metroNIDAZOLE 500 MG/100 ML BAG IV SCH (23:18)
[2020-12-04] MEDS: PANTOprazole 40 MG TAB PO SCH (23:24)
[2020-12-04] MEDS: ATORVASTATIN 40 MG TAB PO SCH (23:24)
[2020-12-04] MEDS: INSULIN ASPART 100 UNITS/ML 3 ML PEN SC SCH (23:28)
[2020-12-04] MEDS: INSULIN GLARGINE SOLOSTAR 100 UNITS/ML 3 ML PEN SC SCH (23:28)
[2020-12-05] MEDS: metroNIDAZOLE 500 MG/100 ML BAG IV SCH ×3 (06:01→22:36)
[2020-12-05] MEDS: amLODIPine BESYLATE 5 MG TAB PO SCH (08:46)
[2020-12-05] MEDS: CYANOCOBALAMIN (VITAMIN B-12) 100 MCG TABLET PO SCH (08:46)
[2020-12-05] MEDS: FOLIC ACID 1 MG TAB PO SCH (08:47)
[2020-12-05] MEDS: METOPROLOL SUCC 25MG EXT REL TAB PO SCH (08:47)
[2020-12-05] MEDS: FERROUS SULFATE 325 MG TAB PO SCH (08:47)
[2020-12-05] MEDS: UMECLIDINIUM/VILANTEROL 62.5/25MCG 7 PUFFS/INHALER INH SCH (08:47)
[2020-12-05] MEDS: ESCITALOPRAM OXALATE 10 MG TAB PO SCH (08:47)
[2020-12-05] MEDS: PANTOprazole 40 MG TAB PO SCH ×2 (08:47→20:43)
[2020-12-05] MEDS: INSULIN GLARGINE SOLOSTAR 100 UNITS/ML 3 ML PEN SC SCH ×2 (08:50→20:45)
[2020-12-05] MEDS: INSULIN ASPART 100 UNITS/ML 3 ML PEN SC SCH ×4 (08:52→20:45)
[2020-12-05 09:03] LABS: Hematocrit (blood only) 39.4 % (37-47); Hemoglobin 12.9 g/dL (12.0-16.0); Mean Corpuscular Hemoglobin 28.7 pg (25-34); Mean Corpuscular Hgb Conc 32.7 g/dL (32-36); Mean Corpuscular Volume 87.8 fL (80-100); Mean Platelet Volume 9.6 fL (7.4-10.4); Platelet Count 287 K/uL (130-400); RDW Coefficient of Variation 14.2 % (11.5-14.5); RDW Standard Deviation 46.2 fL (36.4-46.3); Red Blood Count 4.49 M/uL (4.2-5.4); White Blood Count 14.34 K/uL (4.8-10.8)
[2020-12-05 10:32] LABS: BUN Creatinine Ratio 22.6 (10-20); Calcium 8.7 mg/dl (8.5-10.1); Est GFR (African American) 69.8 ml/min; Est GFR (Non-African American) 60.2 ml/min
--- NOTE | 2020-12-05 11:40 | Ultrasound Report ---
EXAMINATION: PELVIC ULTRASOUND CLINICAL HISTORY: right ovarian mass COMPARISON STUDY: None FINDINGS: The uterus measured 5.6 x 1.9 x 3.2 cm, retroflexed it without evidence of focal lesions.. The endometrial stripe is not well seen. . The right ovary measured 5.3 x 4.1 x 2.5 cm appearance of the right ovary is cystic and septated with nonvisualization of normal ovarian tissue and mild peripheral blood flow. Questionable minimal blood flow is seen within septation. The left ovary is not visualized. . There was no evidence of pathologic free pelvic fluid. IMPRESSION: 1. Complex cystic appearance of the right ovary with nonvisualization of normal ovarian tissue , mi ght represent cystic neoplasm which measures less than 7 cm in size. Further evaluation with MRI of t he pelvis or short-term ultrasound follow-up is suggested. ACT 112: Negative or not required by law. The above report was generated using voice recognition software. It may contain grammatical, syntax o r spelling errors. Electronically signed by: Lisset Wang DO 12/05/2020 11:39 AM
[2020-12-05] MEDS: CIPROFLOXACIN / D5W 400 MG/200 ML BAG IV SCH ×2 (12:22→23:50)
--- NOTE | 2020-12-05 13:49 | Gastrointestinal Consultation ---
Date of Consultation December 05, 2020 Assessment & Plan (1) Diarrhea: 74 year old female admitted for back pain, GI asked to evaluate for colitis on imaging. She notes she developed diarrhea this AM and has passed two liquid BMs today. Review of outside recrods suggests a 20 lb weight loss. She denies black/bloody stools or prior GI issues Can continue clear liquids Check c.diff and culture If negative, can arrange colonoscopy If she remains admitted perhaps this can arrange if symptoms persist/worsen early next week Otherwise she has an order for colonoscopy as an outpatient Thank you for allowing us to participate in the care of this patient. Please call with any acute changes, questions or concerns. Please see addendum below with additional recommendation from my supervising physician. Supervising Physician Co-Signing Physician Notes Attg add: I interviewed and examined pt, reviewed chart and labs. Pt admit with weakness, difficulty walking; ER work up included abdominal CT which showed "non spec colitis," not present on imaging in 2019. She reports diarrhea, although duration unclear. No sig elyte abnl on admission. A/P: Infectious enteritis? Check C diff, micro studies. Symptomatic therapy for diarrhea if needed. Diet as tolerated. If diarrhea persistent and unexplained, then can consider inpt cscopy next week. History of Present Illness Reason for Consultation: colitis Requesting Physician: Alia Attending Physician: Fermin Rojo MD History of Present Illness 74 year old female with history of T2DM, HTN, CKD-3, COPD, ALL and others below admitted through the ED with back pain - GI asked to evaluate for colitis on CT. Pt was seen and evaluated, chart reviewed. Notes she actually developed diarrhea today. This AM he passed two BMs, liquid, brown stool. No black or bloody stools. Denies any abdominal pain. No nausea, vomiting. Aside from today, no chronic GI symptoms. No history of diarrhea or abd pain. No report of prior black/bloody stools. She notes she may have had some weight loss about 5 lbs this year. Outside records suggest 20 lbs since May Denies any personal or family history of IBD Last colonoscopy was 10+ years ago in [place] She has been contacted this month to arrange OP Colon for JOANIE Allergies Allergy/AdvReac Type Severity Reaction Status Date / Time No Known Allergies Allergy Verified 12/04/20 14:10 Home Medications Medication Instructions Recorded Confirmed Type tramadol 50 mg tablet 50 mg PO Q6H PRN 04/05/18 12/04/20 History dasatinib 70 mg tablet (Sprycel) 70 mg PO BID 06/12/18 12/04/20 History atorvastatin 40 mg tablet 40 mg PO PM 02/23/19 12/04/20 History bumetanide 1 mg tablet 1 mg PO DAILY 02/23/19 12/04/20 History insulin detemir U-100 100 unit/mL 14 unit SUBCUT USEASDIRECTD 02/23/19 12/04/20 History (3 mL) subcutaneous pen (Levemir FlexTouch U-100 Insulin) ipratropium 0.5 mg-albuterol 3 mg 3 ml INHALATION BID 02/23/19 12/04/20 History (2.5 mg base)/3 mL nebulization soln lorazepam 0.5 mg tablet 0.5 mg SUBLINGUAL BID PRN 02/23/19 12/04/20 History metoprolol succinate 25 mg 25 mg PO DAILY 02/23/19 12/04/20 History tablet,extended release 24 hr potassium chloride 20 mEq 20 meq PO DAILY 02/23/19 12/04/20 History tablet,extended release Lactobacillus acidophilus 10 10,000 mmu cells PO DAILY 05/28/20 12/04/20 History billion cell capsule (Probiotic) cyanocobalamin (vitamin B-12) 100 100 mcg PO DAILY 05/28/20 12/04/20 History mcg tablet folic acid 1 mg tablet 1 mg PO DAILY 05/28/20 12/04/20 History omeprazole 20 mg capsule,delayed 20 mg PO BID 05/28/20 12/04/20 History release escitalopram oxalate 10 mg tablet 10 mg PO DAILY 10/17/20 12/04/20 History triamcinolone acetonide 0.1 % 1 applic TOPICAL BID 10/17/20 12/04/20 History topical cream umeclidinium 62.5 mcg-vilanterol 1 inh INHALATION DAILY 10/17/20 12/04/20 History 25 mcg/actuation powdr for inhalation (Anoro Ellipta) amlodipine 5 mg tablet (Norvasc) 10 mg PO DAILY #30 tab 10/20/20 12/04/20 Rx ferrous sulfate 325 mg (65 mg 325 mg PO Q2D 12/04/20 12/04/20 History iron) tablet warfarin 5 mg tablet 5 mg PO SUTUWETHSA 12/04/20 12/04/20 History warfarin 5 mg tablet 7.5 mg PO MOFR 12/04/20 12/04/20 History Patient History Medical History (Updated 12/05/20 @ 13:51 by RAFFI Graves) ALL (acute lymphoblastic leukemia) Anticoagulated on Coumadin Bilateral pleural effusion Chronic anemia Chronic diastolic CHF (congestive heart failure) Chronic respiratory failure with hypoxia CKD (chronic kidney disease), stage III COPD (chronic obstructive pulmonary disease) Depression Diabetes mellitus, type II DM type 2 (diabetes mellitus, type 2) Dyslipidemia GERD (gastroesophageal reflux disease) Hypertension Lumbar disc disease Moderate COPD (chronic obstructive pulmonary disease) MRSA (methicillin resistant Staphylococcus aureus) septicemia Mucoid impaction of bronchi Nocturnal hypoxia Osteoarthritis Ovarian cyst Pulmonary embolism Secondary hyperparathyroidism Splenomegaly Tobacco use Transfusion reaction Surgical History H/O tubal ligation History of cholecystectomy Family History Denies family history of Coronary heart disease Social History Smoking Status: Former smoker Tobacco Type: Cigarettes Do You Dip or Chew Tobacco: No; Hx Alcohol Use: No Hx Substance Use: No Preferred Language: Albanian Communication Ability: Effective Visual Impairment: No Limitations Hearing Ability: Normal Streetcar Conductor Required: No Beliefs That Will Affect Care: None marital status: / Current Living Situation: Alone Current Living Situation Comment: Aids come in during the day to help Other Information That Helps Us Care for You: No Feels Safe at Home: Yes Safety Concerns: Feels Safe At This Time Assistive Devices: Cane and Oxygen - Continuous Assistive Devices Comment: cane at times Review of Systems Review of Systems: All systems reviewed & are unremarkable except as noted in HPI & below Physical Exam Constitutional: WD/WN, vitals as above Respiratory: normal respiratory effort, lungs clear to auscultation Cardiovascular: RRR, no murmur, no edema Gastrointestinal (Abdomen): normal bowel sounds, soft, nontender, no hepatosplenomegaly Results & Data ([facility]) Vital Signs (Past 12 Hours) Vital Signs Temp Pulse Resp BP Pulse Ox 12/05/20 06:40 36.3 C L 67 18 106/65 96 Laboratory Results 12/05/20 12/05/20 12/05/20 Range/Units 11:57 10:38 08:46 WBC (4.8-10.8) K/uL RBC (4.2-5.4) M/uL Hgb (12.0-16.0) g/dL Hct (37-47) % MCV (80-100) fL MCH (25-34) pg MCHC (32-36) g/dL RDW Std Deviation (36.4-46.3) fL RDW Coeff of Yariel (11.5-14.5) % Plt Count (130-400) K/uL MPV (7.4-10.4) fL Immature Gran % (Auto) % Neut % (Auto) % Lymph % (Auto) % [place] % (Auto) % Eos % (Auto) % Baso % (Auto) % Neut # (Auto) (1.4-6.5) K/uL Lymph # (Auto) (1.2-3.4) K/uL [place] # (Auto) (0.11-0.59) K/uL Eos # (Auto) (0-0.5) K/uL Baso # (Auto) (0-0.2) K/uL Immature Gran # (Auto) (0.00-0.02) K/uL PT (9.0-12.0) Seconds INR (0.9-1.1) APTT (21.0-31.0) Seconds PTT Ratio Sodium 136 (136-145) mmol/L Potassium 4.2 D (3.5-5.1) mmol/L Chloride 104 (98-107) mmol/L Carbon Dioxide 27 (21-32) mmol/L Anion Gap 5.0 (3-11) BUN 21 H (7-18) mg/dl Creatinine 0.94 (0.6-1.2) mg/dl Est Cr Clr Drug Dosing 55.0 ml/min Est GFR ( Amer) 69.8 ml/min Est GFR (Non-Af Amer) 60.2 ml/min BUN/Creatinine Ratio 22.6 H (10-20) Glucose 203 H (70-99) mg/dl POC Glucose 185 H (70-99) mg/dl Calcium 8.7 (8.5-10.1) mg/dl Magnesium (1.8-2.4) mg/dl Total Bilirubin (0.2-1) mg/dl AST (15-37) U/L ALT (12-78) U/L Alkaline Phosphatase (45-117) U/L Total Protein (6.4-8.2) gm/dl Albumin (3.4-5.0) gm/dl Globulin (2.5-4.0) gm/dl Albumin/Globulin Ratio (0.9-2) Lipase (73-393) U/L Urine Color Urine Appearance (Clear) Urine pH (4.5-7.5) Ur Specific [place] (1.000-1.030) Urine Protein (Negative) Urine Glucose (UA) (Negative) Urine Ketones (Negative) Urine Blood (Negative) Urine Nitrite (Negative) Urine Bilirubin (Negative) Urine Urobilinogen (Negative) Ur Leukocyte Esterase (Negative) Urine WBC (Auto) (0-5) /hpf Urine RBC (Auto) (0-4) /hpf U Hyaline Cast (Auto) (0-5) /lpf U Epithel Cells (Auto) (0-5) /lpf Urine Bacteria (Auto) (Negative) COVID-19 Eval Order SARS-CoV-2 (PCR) (Negative) Hepatitis C Ab Screen (Neg) 12/05/20 12/05/20 12/05/20 Range/Units 08:46 08:46 08:22 WBC 14.34 H (4.8-10.8) K/uL RBC 4.49 (4.2-5.4) M/uL Hgb 12.9 (12.0-16.0) g/dL Hct 39.4 (37-47) % MCV 87.8 (80-100) fL MCH 28.7 (25-34) pg MCHC 32.7 (32-36) g/dL RDW Std Deviation 46.2 (36.4-46.3) fL RDW Coeff of Yariel 14.2 (11.5-14.5) % Plt Count 287 (130-400) K/uL MPV 9.6 (7.4-10.4) fL Immature Gran % (Auto) % Neut % (Auto) % Lymph % (Auto) % [place] % (Auto) % Eos % (Auto) % Baso % (Auto) % Neut # (Auto) (1.4-6.5) K/uL Lymph # (Auto) (1.2-3.4) K/uL [place] # (Auto) (0.11-0.59) K/uL Eos # (Auto) (0-0.5) K/uL Baso # (Auto) (0-0.2) K/uL Immature Gran # (Auto) (0.00-0.02) K/uL PT (9.0-12.0) Seconds INR (0.9-1.1) APTT (21.0-31.0) Seconds PTT Ratio Sodium (136-145) mmol/L Potassium (3.5-5.1) mmol/L Chloride (98-107) mmol/L Carbon Dioxide (21-32) mmol/L Anion Gap (3-11) BUN (7-18) mg/dl Creatinine (0.6-1.2) mg/dl Est Cr Clr Drug Dosing ml/min Est GFR ( Amer) ml/min Est GFR (Non-Af Amer) ml/min BUN/Creatinine Ratio (10-20) Glucose (70-99) mg/dl POC Glucose 189 H (70-99) mg/dl Calcium (8.5-10.1) mg/dl Magnesium (1.8-2.4) mg/dl Total Bilirubin (0.2-1) mg/dl AST (15-37) U/L ALT (12-78) U/L Alkaline Phosphatase (45-117) U/L Total Protein (6.4-8.2) gm/dl Albumin (3.4-5.0) gm/dl Globulin (2.5-4.0) gm/dl Albumin/Globulin Ratio (0.9-2) Lipase (73-393) U/L Urine Color Urine Appearance (Clear) Urine pH (4.5-7.5) Ur Specific [place] (1.000-1.030) Urine Protein (Negative) Urine Glucose (UA) (Negative) Urine Ketones (Negative) Urine Blood (Negative) Urine Nitrite (Negative) Urine Bilirubin (Negative) Urine Urobilinogen (Negative) Ur Leukocyte Esterase (Negative) Urine WBC (Auto) (0-5) /hpf Urine RBC (Auto) (0-4) /hpf U Hyaline Cast (Auto) (0-5) /lpf U Epithel Cells (Auto) (0-5) /lpf Urine Bacteria (Auto) (Negative) COVID-19 Eval Order SARS-CoV-2 (PCR) (Negative) Hepatitis C Ab Screen Neg (Neg) 12/04/20 12/04/20 12/04/20 Range/Units 23:26 19:13 19:13 WBC (4.8-10.8) K/uL RBC (4.2-5.4) M/uL Hgb (12.0-16.0) g/dL Hct (37-47) % MCV (80-100) fL MCH (25-34) pg MCHC (32-36) g/dL RDW Std Deviation (36.4-46.3) fL RDW Coeff of Yariel (11.5-14.5) % Plt Count (130-400) K/uL MPV (7.4-10.4) fL Immature Gran % (Auto) % Neut % (Auto) % Lymph % (Auto) % [place] % (Auto) % Eos % (Auto) % Baso % (Auto) % Neut # (Auto) (1.4-6.5) K/uL Lymph # (Auto) (1.2-3.4) K/uL [place] # (Auto) (0.11-0.59) K/uL Eos # (Auto) (0-0.5) K/uL Baso # (Auto) (0-0.2) K/uL Immature Gran # (Auto) (0.00-0.02) K/uL PT (9.0-12.0) Seconds INR (0.9-1.1) APTT (21.0-31.0) Seconds PTT Ratio Sodium (136-145) mmol/L Potassium (3.5-5.1) mmol/L Chloride (98-107) mmol/L Carbon Dioxide (21-32) mmol/L Anion Gap (3-11) BUN (7-18) mg/dl Creatinine (0.6-1.2) mg/dl Est Cr Clr Drug Dosing ml/min Est GFR ( Amer) ml/min Est GFR (Non-Af Amer) ml/min BUN/Creatinine Ratio (10-20) Glucose (70-99) mg/dl POC Glucose 199 H (70-99) mg/dl Calcium (8.5-10.1) mg/dl Magnesium (1.8-2.4) mg/dl Total Bilirubin (0.2-1) mg/dl AST (15-37) U/L ALT (12-78) U/L Alkaline Phosphatase (45-117) U/L Total Protein (6.4-8.2) gm/dl Albumin (3.4-5.0) gm/dl Globulin (2.5-4.0) gm/dl Albumin/Globulin Ratio (0.9-2) Lipase (73-393) U/L Urine Color Urine Appearance (Clear) Urine pH (4.5-7.5) Ur Specific [place] (1.000-1.030) Urine Protein (Negative) Urine Glucose (UA) (Negative) Urine Ketones (Negative) Urine Blood (Negative) Urine Nitrite (Negative) Urine Bilirubin (Negative) Urine Urobilinogen (Negative) Ur Leukocyte Esterase (Negative) Urine WBC (Auto) (0-5) /hpf Urine RBC (Auto) (0-4) /hpf U Hyaline Cast (Auto) (0-5) /lpf U Epithel Cells (Auto) (0-5) /lpf Urine Bacteria (Auto) (Negative) COVID-19 Eval Order Covid19 at [facility] SARS-CoV-2 (PCR) NEGATIVE (Negative) Hepatitis C Ab Screen (Neg) 12/04/20 12/04/20 12/04/20 Range/Units 18:20 14:10 14:10 WBC 18.89 H (4.8-10.8) K/uL RBC 4.39 (4.2-5.4) M/uL Hgb 12.6 (12.0-16.0) g/dL Hct 38.0 (37-47) % MCV 86.6 (80-100) fL MCH 28.7 (25-34) pg MCHC 33.2 (32-36) g/dL RDW Std Deviation 45.2 (36.4-46.3) fL RDW Coeff of Yariel 14.1 (11.5-14.5) % Plt Count 347 (130-400) K/uL MPV 9.7 (7.4-10.4) fL Immature Gran % (Auto) 0.3 % Neut % (Auto) 87.7 % Lymph % (Auto) 3.6 % [place] % (Auto) 8.1 % Eos % (Auto) 0.1 % Baso % (Auto) 0.2 % Neut # (Auto) 16.58 H (1.4-6.5) K/uL Lymph # (Auto) 0.68 L (1.2-3.4) K/uL [place] # (Auto) 1.53 H (0.11-0.59) K/uL Eos # (Auto) 0.02 (0-0.5) K/uL Baso # (Auto) 0.03 (0-0.2) K/uL Immature Gran # (Auto) 0.05 H (0.00-0.02) K/uL PT 13.0 H (9.0-12.0) Seconds INR 1.3 H (0.9-1.1) APTT 34.4 H (21.0-31.0) Seconds PTT Ratio 1.3 Sodium (136-145) mmol/L Potassium (3.5-5.1) mmol/L Chloride (98-107) mmol/L Carbon Dioxide (21-32) mmol/L Anion Gap (3-11) BUN (7-18) mg/dl Creatinine (0.6-1.2) mg/dl Est Cr Clr Drug Dosing ml/min Est GFR ( Amer) ml/min Est GFR (Non-Af Amer) ml/min BUN/Creatinine Ratio (10-20) Glucose (70-99) mg/dl POC Glucose (70-99) mg/dl Calcium (8.5-10.1) mg/dl Magnesium (1.8-2.4) mg/dl Total Bilirubin (0.2-1) mg/dl AST (15-37) U/L ALT (12-78) U/L Alkaline Phosphatase (45-117) U/L Total Protein (6.4-8.2) gm/dl Albumin (3.4-5.0) gm/dl Globulin (2.5-4.0) gm/dl Albumin/Globulin Ratio (0.9-2) Lipase (73-393) U/L Urine Color Yellow Urine Appearance Clear (Clear) Urine pH 5.5 (4.5-7.5) Ur Specific [place] > 1.045 H (1.000-1.030) Urine Protein 1+ H (Negative) Urine Glucose (UA) Negative (Negative) Urine Ketones Negative (Negative) Urine Blood Trace H (Negative) Urine Nitrite Negative (Negative) Urine Bilirubin Negative (Negative) Urine Urobilinogen Negative (Negative) Ur Leukocyte Esterase Negative (Negative) Urine WBC (Auto) 1-5 (0-5) /hpf Urine RBC (Auto) 0-4 (0-4) /hpf U Hyaline Cast (Auto) 1-5 (0-5) /lpf U Epithel Cells (Auto) 20-30 H (0-5) /lpf Urine Bacteria (Auto) Negative (Negative) COVID-19 Eval Order SARS-CoV-2 (PCR) (Negative) Hepatitis C Ab Screen (Neg) 12/04/20 Range/Units 14:10 WBC (4.8-10.8) K/uL RBC (4.2-5.4) M/uL Hgb (12.0-16.0) g/dL Hct (37-47) % MCV (80-100) fL MCH (25-34) pg MCHC (32-36) g/dL RDW Std Deviation (36.4-46.3) fL RDW Coeff of Yariel (11.5-14.5) % Plt Count (130-400) K/uL MPV (7.4-10.4) fL Immature Gran % (Auto) % Neut % (Auto) % Lymph % (Auto) % [place] % (Auto) % Eos % (Auto) % Baso % (Auto) % Neut # (Auto) (1.4-6.5) K/uL Lymph # (Auto) (1.2-3.4) K/uL [place] # (Auto) (0.11-0.59) K/uL Eos # (Auto) (0-0.5) K/uL Baso # (Auto) (0-0.2) K/uL Immature Gran # (Auto) (0.00-0.02) K/uL PT (9.0-12.0) Seconds INR (0.9-1.1) APTT (21.0-31.0) Seconds PTT Ratio Sodium 131 L (136-145) mmol/L Potassium 3.1 L (3.5-5.1) mmol/L Chloride 94 L (98-107) mmol/L Carbon Dioxide 32 (21-32) mmol/L Anion Gap 5.0 (3-11) BUN 21 H (7-18) mg/dl Creatinine 1.06 (0.6-1.2) mg/dl Est Cr Clr Drug Dosing 50.4 ml/min Est GFR ( Amer) 60.3 ml/min Est GFR (Non-Af Amer) 52.0 ml/min BUN/Creatinine Ratio 19.6 (10-20) Glucose 154 H (70-99) mg/dl POC Glucose (70-99) mg/dl Calcium 8.6 (8.5-10.1) mg/dl Magnesium 1.9 (1.8-2.4) mg/dl Total Bilirubin 0.6 (0.2-1) mg/dl AST 11 L (15-37) U/L ALT 15 (12-78) U/L Alkaline Phosphatase 93 (45-117) U/L Total Protein 5.7 L (6.4-8.2) gm/dl Albumin 2.3 L (3.4-5.0) gm/dl Globulin 3.4 (2.5-4.0) gm/dl Albumin/Globulin Ratio 0.7 L (0.9-2) Lipase 85 (73-393) U/L Urine Color Urine Appearance (Clear) Urine pH (4.5-7.5) Ur Specific [place] (1.000-1.030) Urine Protein (Negative) Urine Glucose (UA) (Negative) Urine Ketones (Negative) Urine Blood (Negative) Urine Nitrite (Negative) Urine Bilirubin (Negative) Urine Urobilinogen (Negative) Ur Leukocyte Esterase (Negative) Urine WBC (Auto) (0-5) /hpf Urine RBC (Auto) (0-4) /hpf U Hyaline Cast (Auto) (0-5) /lpf U Epithel Cells (Auto) (0-5) /lpf Urine Bacteria (Auto) (Negative) COVID-19 Eval Order SARS-CoV-2 (PCR) (Negative) Hepatitis C Ab Screen (Neg)
[2020-12-05] MEDS ORDERED: WARFARIN SOD 7.5 MG TAB PO SCH (16:00)
--- NOTE | 2020-12-05 16:40 | Hospitalist Progress Note ---
Date of Service December 05, 2020 Assessment & Plan (1) Colitis: Plan: Pancolitis CT ABD:Findings are consistent with a nonspecific pancolitis. This is likely on an infectious or inflammatory basis and clinical correlation will be required. Check stool for C diff Received gentle IV fluids Empirically on ciprofloxacin, Flagyl Clear liquid diet for now Appreciate GI input Plan for colonoscopy as able (2) Back pain: Plan: -Lumbar/Thoracic CT:No acute fracture or subluxation. Degenerative changes above. No suspicious bone lesions or endplate erosions. -Cervical CT:No acute cervical spine fracture or subluxation. Degenerative changes -Pain control PT/OT (3) Weakness: Plan: Due to comorbidities PT/OT (4) Adnexal mass: Plan: -CT ABD/pelvis:There is a 5.2 cm complex lesion seen in the right adnexa, likely related to the right ovary. This abnormal finding, and ovarian neoplasm is to be excluded. Follow-up with a nonemergent pelvic ultrasound and gynecology assessment is recommended. -Pelvic USD:Complex cystic appearance of the right ovary with nonvisualization of normal ovarian tissue , might represent cystic neoplasm which measures less than 7 cm in size. Further evaluation with MRI of the pelvis or short-term ultrasound follow-up is suggested. -Gynecology consulted (5) Chronic diastolic CHF (congestive heart failure): Plan: Chronic Bilateral Pleural Effusion Chronic oxygen dependency Non compliance with diuretic use -Monitor volume status closely Resume home diuretics Continue supplemental oxygen (6) Chronic respiratory failure with hypoxia: Plan: As above (7) Moderate COPD (chronic obstructive pulmonary disease): Plan: -No signs of acute exacerbation -Continue home inhalers (8) DM type 2 (diabetes mellitus, type 2): Plan: -Hgb A1c 5.6 09/2020 -Continue Insulin therapy Monitor BGs (9) Hypertension: Plan: -BP stable Continue amlodipine and metoprolol (10) ALL (acute lymphoblastic leukemia): Plan: -Continue Sprycel (11) Pulmonary embolism: Plan: Subtherapeutic INR Monitor INR 1.3 Continue Coumadin (12) DVT prophylaxis: Plan: -On Coumadin SCDs Admission and Anticipated Discharge Date Admission Date: December 05, 2020 Subjective Patient is seen and examined at bedside Had 2 loose BMs today Back pain better today Still some neck pain Denies nausea, vomiting, abdominal pain, chest pain, dyspnea On chronic supplemental oxygen Offers no other complaints Review of Systems Review of Systems: All systems reviewed & are unremarkable except as noted in Subjective Physical Exam Physical Exam: Physical Exam: Vitals signs as noted above General Appearance:Moderately built and nourished, no apparent distress Head: normocephalic, Atraumatic Eyes: normal inspection, EOMI Neck: supple, Trachea midline Respiratory/Chest: Decreased breath sounds at bases, No accessory muscle use Cardiovascular: S1, S2, ? murmur Abdomen/GI:Soft, Non tender, Bowel sounds present Extremities/Musculoskeletal:normal inspection, no edema Neurologic/Psych:AAOX3, grossly no focal neurological deficits Skin: normal color, warm Results & Data Results & Data ([facility]) Vital Signs (Past 12 Hours) Vital Signs Temp Pulse Pulse Resp BP Pulse Ox 12/05/20 16:15 36.8 C 67 16 110/65 97 12/05/20 06:40 36.3 C L 67 18 106/65 96 Laboratory Results Short CBC 12/05/20 Range/Units 08:46 WBC 14.34 H (4.8-10.8) K/uL Hgb 12.9 (12.0-16.0) g/dL Hct 39.4 (37-47) % Plt Count 287 (130-400) K/uL BMP 12/04/20 12/05/20 12/05/20 14:10 08:46 10:38 Sodium 131 L 136 Potassium 3.1 L 4.2 D Chloride 94 L 104 Carbon Dioxide 32 27 BUN 21 H 21 H Creatinine 1.06 0.94 Glucose 154 H 203 H Calcium 8.6 8.7 Liver Function 12/04/20 Range/Units 14:10 Total Bilirubin 0.6 (0.2-1) mg/dl AST 11 L (15-37) U/L ALT 15 (12-78) U/L Alkaline Phosphatase 93 (45-117) U/L Albumin 2.3 L (3.4-5.0) gm/dl Urine 12/04/20 Range/Units 18:20 Urine Color Yellow Urine Appearance Clear (Clear) Urine pH 5.5 (4.5-7.5) Ur Specific [place] > 1.045 H (1.000-1.030) Urine Protein 1+ H (Negative) Urine Glucose (UA) Negative (Negative) (1) Pulmonary embolism Pulmonary embolism type: saddle Chronicity: unspecified Acute cor pulmonale presence: without acute cor pulmonale Qualified Code(s): I26.92 - Saddle embolus of pulmonary artery without acute cor pulmonale
[2020-12-05] MEDS: LACTOBACILLUS ACIDOPHILUS 1 GM PACK PO SCH (17:08)
[2020-12-05] MEDS: ATORVASTATIN 40 MG TAB PO SCH (20:43)
[2020-12-05] MEDS: traMADol HCL 50 MG TABLET PO PRN (22:37)
[2020-12-06 00:33] LABS: Cdiff Antigen Positive
[2020-12-06 00:36] LABS: Cdiff Toxin A+B Positive Cdiff Toxin (Negative)
--- NOTE | 2020-12-06 00:59 | Communication Note ---
Date of Service: December 06, 2020 Made aware of positive stool C. difficile toxin result AP C. difficile colitis Dificid Omkar and Trent Will relay to AM provider.
[2020-12-06] MEDS ORDERED: FIDAXOMICIN 200 MG TAB PO SCH (01:00)
[2020-12-06 07:42] LABS: Hematocrit (blood only) 43.2 % (37-47); Hemoglobin 14.2 g/dL (12.0-16.0); Mean Corpuscular Hgb Conc 32.9 g/dL (32-36); Mean Corpuscular Volume 88.3 fL (80-100); Mean Platelet Volume 9.5 fL (7.4-10.4); Platelet Count 525 K/uL (130-400); RDW Coefficient of Variation 14.3 % (11.5-14.5); RDW Standard Deviation 46.7 fL (36.4-46.3); Red Blood Count 4.89 M/uL (4.2-5.4); White Blood Count 21.36 K/uL (4.8-10.8)
[2020-12-06 07:47] LABS: Prothrombin Time 58.9 Seconds (9.0-12.0)
--- NOTE | 2020-12-06 07:57 | OB/GYN Consultation ---
Date of Consultation December 06, 2020 Assessment & Plan (1) Adnexal mass: 74-year-old -0-0-3 postmenopausal female admitted for back pain and generalized weakness, incidental finding of right adnexal cystic mass by CT and pelvic ultrasound. Patient is asymptomatic, Recommended cancer markers, ordered them. MRI of pelvis as recommended by radiology to obtain more information about adnexal mass, patient agrees. I will follow up with those results above and arrange most likely follow-up with [facility] oncologist. All questions were answered. History of Present Illness Reason for Consultation: Adnexal mass Attending Physician: Fermin Rojo MD History of Present Illness Patient is a 74-year-old -0-0-3 postmenopausal female who was admitted for back pain, generalized weakness and has multiple medical problems. She had CT of abdomen and pelvis which showed adnexal mass and confirmed with pelvic ultrasound. -CT ABD/pelvis:There is a 5.2 cm complex lesion seen in the right adnexa, likely related to the right ovary. This abnormal finding, and ovarian neoplasm is to be excluded. Follow-up with a nonemergent pelvic ultrasound and gynecology assessment is recommended. -Pelvic USD:Complex cystic appearance of the right ovary with nonvisualization of normal ovarian tissue , might represent cystic neoplasm which measures less than 7 cm in size. Further evaluation with MRI of the pelvis or short-term ultrasound follow-up is suggested. Patient is asymptomatic. She denies postmenopausal bleeding, pelvic pain, pressure, vaginal discharge or spotting. She has not been to [facility] for many many years. She is not sure about menopausal age but states at least 20 years. She denies usage of hormone replacement therapy. She denies any history of [facility] problems, [facility] surgeries nor abnormal Pap smears. Discussed the above findings and recommendation of MRI by radiologist and patient agrees with the recommendation. She states she have had MRI in the past and she can have another one. I also recommended cancer markers and she agreed with that too. Allergies Allergy/AdvReac Type Severity Reaction Status Date / Time No Known Allergies Allergy Verified 12/04/20 14:10 Home Medications Medication Instructions Recorded Confirmed Type tramadol 50 mg tablet 50 mg PO Q6H PRN 04/05/18 12/04/20 History dasatinib 70 mg tablet (Sprycel) 70 mg PO BID 06/12/18 12/04/20 History atorvastatin 40 mg tablet 40 mg PO PM 02/23/19 12/04/20 History bumetanide 1 mg tablet 1 mg PO DAILY 02/23/19 12/04/20 History insulin detemir U-100 100 unit/mL 14 unit SUBCUT USEASDIRECTD 02/23/19 12/04/20 History (3 mL) subcutaneous pen (Levemir FlexTouch U-100 Insulin) ipratropium 0.5 mg-albuterol 3 mg 3 ml INHALATION BID 02/23/19 12/04/20 History (2.5 mg base)/3 mL nebulization soln lorazepam 0.5 mg tablet 0.5 mg SUBLINGUAL BID PRN 02/23/19 12/04/20 History metoprolol succinate 25 mg 25 mg PO DAILY 02/23/19 12/04/20 History tablet,extended release 24 hr potassium chloride 20 mEq 20 meq PO DAILY 02/23/19 12/04/20 History tablet,extended release Lactobacillus acidophilus 10 10,000 mmu cells PO DAILY 05/28/20 12/04/20 History billion cell capsule (Probiotic) cyanocobalamin (vitamin B-12) 100 100 mcg PO DAILY 05/28/20 12/04/20 History mcg tablet folic acid 1 mg tablet 1 mg PO DAILY 05/28/20 12/04/20 History omeprazole 20 mg capsule,delayed 20 mg PO BID 05/28/20 12/04/20 History release escitalopram oxalate 10 mg tablet 10 mg PO DAILY 10/17/20 12/04/20 History triamcinolone acetonide 0.1 % 1 applic TOPICAL BID 10/17/20 12/04/20 History topical cream umeclidinium 62.5 mcg-vilanterol 1 inh INHALATION DAILY 10/17/20 12/04/20 History 25 mcg/actuation powdr for inhalation (Anoro Ellipta) amlodipine 5 mg tablet (Norvasc) 10 mg PO DAILY #30 tab 10/20/20 12/04/20 Rx ferrous sulfate 325 mg (65 mg 325 mg PO Q2D 12/04/20 12/04/20 History iron) tablet warfarin 5 mg tablet 5 mg PO SUTUWETHSA 12/04/20 12/04/20 History warfarin 5 mg tablet 7.5 mg PO MOFR 12/04/20 12/04/20 History Patient History Medical History ALL (acute lymphoblastic leukemia) Anticoagulated on Coumadin Bilateral pleural effusion Chronic anemia Chronic diastolic CHF (congestive heart failure) Chronic respiratory failure with hypoxia CKD (chronic kidney disease), stage III COPD (chronic obstructive pulmonary disease) Depression Diabetes mellitus, type II DM type 2 (diabetes mellitus, type 2) Dyslipidemia GERD (gastroesophageal reflux disease) Hypertension Lumbar disc disease Moderate COPD (chronic obstructive pulmonary disease) MRSA (methicillin resistant Staphylococcus aureus) septicemia Mucoid impaction of bronchi Nocturnal hypoxia Osteoarthritis Ovarian cyst Pulmonary embolism Secondary hyperparathyroidism Splenomegaly Tobacco use Transfusion reaction Surgical History H/O tubal ligation History of cholecystectomy Family History Denies family history of Coronary heart disease Social History Smoking Status: Former smoker Tobacco Type: Cigarettes Do You Dip or Chew Tobacco: No; Hx Alcohol Use: No Hx Substance Use: No Preferred Language: Arabic Communication Ability: Effective Visual Impairment: No Limitations Hearing Ability: Normal Insurance Verification Rep Required: No Beliefs That Will Affect Care: None marital status: / Current Living Situation: Alone Current Living Situation Comment: Aids come in during the day to help Other Information That Helps Us Care for You: No Feels Safe at Home: Yes Safety Concerns: Feels Safe At This Time Assistive Devices: Oxygen - Continuous Assistive Devices Comment: cane at times Review of Systems Review of Systems: All systems reviewed & are unremarkable except as noted in HPI & below Physical Exam Constitutional: WD/WN, vitals as above + thin and + frail appearing Genitourinary: Deferred Results & Data ([facility]) Vital Signs (Past 12 Hours) Vital Signs Temp Pulse Resp BP Pulse Ox 12/06/20 06:11 36.8 C 63 16 107/62 92 12/05/20 22:40 36.9 C 74 20 103/63 95 Laboratory Results Lab Results 12/04/20 12/04/20 12/04/20 Range/Units 14:10 14:10 14:10 WBC 18.89 H (4.8-10.8) K/uL RBC 4.39 (4.2-5.4) M/uL Hgb 12.6 (12.0-16.0) g/dL Hct 38.0 (37-47) % MCV 86.6 (80-100) fL MCH 28.7 (25-34) pg MCHC 33.2 (32-36) g/dL RDW Std Deviation 45.2 (36.4-46.3) fL RDW Coeff of Yariel 14.1 (11.5-14.5) % Plt Count 347 (130-400) K/uL MPV 9.7 (7.4-10.4) fL Immature Gran % (Auto) 0.3 % Neut % (Auto) 87.7 % Lymph % (Auto) 3.6 % Bru[place] % (Auto) 8.1 % Eos % (Auto) 0.1 % Baso % (Auto) 0.2 % Neut # (Auto) 16.58 H (1.4-6.5) K/uL Lymph # (Auto) 0.68 L (1.2-3.4) K/uL Brule # (Auto) 1.53 H (0.11-0.59) K/uL Eos # (Auto) 0.02 (0-0.5) K/uL Baso # (Auto) 0.03 (0-0.2) K/uL Immature Gran # (Auto) 0.05 H (0.00-0.02) K/uL PT 13.0 H (9.0-12.0) Seconds INR 1.3 H (0.9-1.1) APTT 34.4 H (21.0-31.0) Seconds PTT Ratio 1.3 Sodium 131 L (136-145) mmol/L Potassium 3.1 L (3.5-5.1) mmol/L Chloride 94 L (98-107) mmol/L Carbon Dioxide 32 (21-32) mmol/L Anion Gap 5.0 (3-11) BUN 21 H (7-18) mg/dl Creatinine 1.06 (0.6-1.2) mg/dl Est Cr Clr Drug Dosing 50.4 ml/min Est GFR ( Amer) 60.3 ml/min Est GFR (Non-Af Amer) 52.0 ml/min BUN/Creatinine Ratio 19.6 (10-20) Glucose 154 H (70-99) mg/dl POC Glucose (70-99) mg/dl Calcium 8.6 (8.5-10.1) mg/dl Magnesium 1.9 (1.8-2.4) mg/dl Total Bilirubin 0.6 (0.2-1) mg/dl AST 11 L (15-37) U/L ALT 15 (12-78) U/L Alkaline Phosphatase 93 (45-117) U/L Total Protein 5.7 L (6.4-8.2) gm/dl Albumin 2.3 L (3.4-5.0) gm/dl Globulin 3.4 (2.5-4.0) gm/dl Albumin/Globulin Ratio 0.7 L (0.9-2) Lipase 85 (73-393) U/L Urine Color Urine Appearance (Clear) Urine pH (4.5-7.5) Ur Specific [place] (1.000-1.030) Urine Protein (Negative) Urine Glucose (UA) (Negative) Urine Ketones (Negative) Urine Blood (Negative) Urine Nitrite (Negative) Urine Bilirubin (Negative) Urine Urobilinogen (Negative) Ur Leukocyte Esterase (Negative) Urine WBC (Auto) (0-5) /hpf Urine RBC (Auto) (0-4) /hpf U Hyaline Cast (Auto) (0-5) /lpf U Epithel Cells (Auto) (0-5) /lpf Urine Bacteria (Auto) (Negative) Stl C. diff Tox B Gene (Neg) Stl C.difficile Tox A&B (Negative) COVID-19 Eval Order SARS-CoV-2 (PCR) (Negative) Hepatitis C Ab Screen (Neg) 12/04/20 12/04/20 12/04/20 Range/Units 18:20 19:13 19:13 WBC (4.8-10.8) K/uL RBC (4.2-5.4) M/uL Hgb (12.0-16.0) g/dL Hct (37-47) % MCV (80-100) fL MCH (25-34) pg MCHC (32-36) g/dL RDW Std Deviation (36.4-46.3) fL RDW Coeff of Yariel (11.5-14.5) % Plt Count (130-400) K/uL MPV (7.4-10.4) fL Immature Gran % (Auto) % Neut % (Auto) % Lymph % (Auto) % Brule % (Auto) % Eos % (Auto) % Baso % (Auto) % Neut # (Auto) (1.4-6.5) K/uL Lymph # (Auto) (1.2-3.4) K/uL Bru[place] # (Auto) (0.11-0.59) K/uL Eos # (Auto) (0-0.5) K/uL Baso # (Auto) (0-0.2) K/uL Immature Gran # (Auto) (0.00-0.02) K/uL PT (9.0-12.0) Seconds INR (0.9-1.1) APTT (21.0-31.0) Seconds PTT Ratio Sodium (136-145) mmol/L Potassium (3.5-5.1) mmol/L Chloride (98-107) mmol/L Carbon Dioxide (21-32) mmol/L Anion Gap (3-11) BUN (7-18) mg/dl Creatinine (0.6-1.2) mg/dl Est Cr Clr Drug Dosing ml/min Est GFR ( Amer) ml/min Est GFR (Non-Af Amer) ml/min BUN/Creatinine Ratio (10-20) Glucose (70-99) mg/dl POC Glucose (70-99) mg/dl Calcium (8.5-10.1) mg/dl Magnesium (1.8-2.4) mg/dl Total Bilirubin (0.2-1) mg/dl AST (15-37) U/L ALT (12-78) U/L Alkaline Phosphatase (45-117) U/L Total Protein (6.4-8.2) gm/dl Albumin (3.4-5.0) gm/dl Globulin (2.5-4.0) gm/dl Albumin/Globulin Ratio (0.9-2) Lipase (73-393) U/L Urine Color Yellow Urine Appearance Clear (Clear) Urine pH 5.5 (4.5-7.5) Ur Specific [place] > 1.045 H (1.000-1.030) Urine Protein 1+ H (Negative) Urine Glucose (UA) Negative (Negative) Urine Ketones Negative (Negative) Urine Blood Trace H (Negative) Urine Nitrite Negative (Negative) Urine Bilirubin Negative (Negative) Urine Urobilinogen Negative (Negative) Ur Leukocyte Esterase Negative (Negative) Urine WBC (Auto) 1-5 (0-5) /hpf Urine RBC (Auto) 0-4 (0-4) /hpf U Hyaline Cast (Auto) 1-5 (0-5) /lpf U Epithel Cells (Auto) 20-30 H (0-5) /lpf Urine Bacteria (Auto) Negative (Negative) Stl C. diff Tox B Gene (Neg) Stl C.difficile Tox A&B (Negative) COVID-19 Eval Order Covid19 at [facility] SARS-CoV-2 (PCR) NEGATIVE (Negative) Hepatitis C Ab Screen (Neg) 12/04/20 12/05/20 12/05/20 Range/Units 23:26 08:22 08:46 WBC (4.8-10.8) K/uL RBC (4.2-5.4) M/uL Hgb (12.0-16.0) g/dL Hct (37-47) % MCV (80-100) fL MCH (25-34) pg MCHC (32-36) g/dL RDW Std Deviation (36.4-46.3) fL RDW Coeff of Yariel (11.5-14.5) % Plt Count (130-400) K/uL MPV (7.4-10.4) fL Immature Gran % (Auto) % Neut % (Auto) % Lymph % (Auto) % [place] % (Auto) % Eos % (Auto) % Baso % (Auto) % Neut # (Auto) (1.4-6.5) K/uL Lymph # (Auto) (1.2-3.4) K/uL [place] # (Auto) (0.11-0.59) K/uL Eos # (Auto) (0-0.5) K/uL Baso # (Auto) (0-0.2) K/uL Immature Gran # (Auto) (0.00-0.02) K/uL PT (9.0-12.0) Seconds INR (0.9-1.1) APTT (21.0-31.0) Seconds PTT Ratio Sodium (136-145) mmol/L Potassium (3.5-5.1) mmol/L Chloride (98-107) mmol/L Carbon Dioxide (21-32) mmol/L Anion Gap (3-11) BUN (7-18) mg/dl Creatinine (0.6-1.2) mg/dl Est Cr Clr Drug Dosing ml/min Est GFR ( Amer) ml/min Est GFR (Non-Af Amer) ml/min BUN/Creatinine Ratio (10-20) Glucose (70-99) mg/dl POC Glucose 199 H 189 H (70-99) mg/dl Calcium (8.5-10.1) mg/dl Magnesium (1.8-2.4) mg/dl Total Bilirubin (0.2-1) mg/dl AST (15-37) U/L ALT (12-78) U/L Alkaline Phosphatase (45-117) U/L Total Protein (6.4-8.2) gm/dl Albumin (3.4-5.0) gm/dl Globulin (2.5-4.0) gm/dl Albumin/Globulin Ratio (0.9-2) Lipase (73-393) U/L Urine Color Urine Appearance (Clear) Urine pH (4.5-7.5) Ur Specific [place] (1.000-1.030) Urine Protein (Negative) Urine Glucose (UA) (Negative) Urine Ketones (Negative) Urine Blood (Negative) Urine Nitrite (Negative) Urine Bilirubin (Negative) Urine Urobilinogen (Negative) Ur Leukocyte Esterase (Negative) Urine WBC (Auto) (0-5) /hpf Urine RBC (Auto) (0-4) /hpf U Hyaline Cast (Auto) (0-5) /lpf U Epithel Cells (Auto) (0-5) /lpf Urine Bacteria (Auto) (Negative) Stl C. diff Tox B Gene (Neg) Stl C.difficile Tox A&B (Negative) COVID-19 Eval Order SARS-CoV-2 (PCR) (Negative) Hepatitis C Ab Screen Neg (Neg) 12/05/20 12/05/20 12/05/20 Range/Units 08:46 08:46 10:38 WBC 14.34 H (4.8-10.8) K/uL RBC 4.49 (4.2-5.4) M/uL Hgb 12.9 (12.0-16.0) g/dL Hct 39.4 (37-47) % MCV 87.8 (80-100) fL MCH 28.7 (25-34) pg MCHC 32.7 (32-36) g/dL RDW Std Deviation 46.2 (36.4-46.3) fL RDW Coeff of Yariel 14.2 (11.5-14.5) % Plt Count 287 (130-400) K/uL MPV 9.6 (7.4-10.4) fL Immature Gran % (Auto) % Neut % (Auto) % Lymph % (Auto) % [place] % (Auto) % Eos % (Auto) % Baso % (Auto) % Neut # (Auto) (1.4-6.5) K/uL Lymph # (Auto) (1.2-3.4) K/uL [place] # (Auto) (0.11-0.59) K/uL Eos # (Auto) (0-0.5) K/uL Baso # (Auto) (0-0.2) K/uL Immature Gran # (Auto) (0.00-0.02) K/uL PT (9.0-12.0) Seconds INR (0.9-1.1) APTT (21.0-31.0) Seconds PTT Ratio Sodium 136 (136-145) mmol/L Potassium 4.2 D (3.5-5.1) mmol/L Chloride 104 (98-107) mmol/L Carbon Dioxide 27 (21-32) mmol/L Anion Gap 5.0 (3-11) BUN 21 H (7-18) mg/dl Creatinine 0.94 (0.6-1.2) mg/dl Est Cr Clr Drug Dosing 55.0 ml/min Est GFR ( Amer) 69.8 ml/min Est GFR (Non-Af Amer) 60.2 ml/min BUN/Creatinine Ratio 22.6 H (10-20) Glucose 203 H (70-99) mg/dl POC Glucose (70-99) mg/dl Calcium 8.7 (8.5-10.1) mg/dl Magnesium (1.8-2.4) mg/dl Total Bilirubin (0.2-1) mg/dl AST (15-37) U/L ALT (12-78) U/L Alkaline Phosphatase (45-117) U/L Total Protein (6.4-8.2) gm/dl Albumin (3.4-5.0) gm/dl Globulin (2.5-4.0) gm/dl Albumin/Globulin Ratio (0.9-2) Lipase (73-393) U/L Urine Color Urine Appearance (Clear) Urine pH (4.5-7.5) Ur Specific [place] (1.000-1.030) Urine Protein (Negative) Urine Glucose (UA) (Negative) Urine Ketones (Negative) Urine Blood (Negative) Urine Nitrite (Negative) Urine Bilirubin (Negative) Urine Urobilinogen (Negative) Ur Leukocyte Esterase (Negative) Urine WBC (Auto) (0-5) /hpf Urine RBC (Auto) (0-4) /hpf U Hyaline Cast (Auto) (0-5) /lpf U Epithel Cells (Auto) (0-5) /lpf Urine Bacteria (Auto) (Negative) Stl C. diff Tox B Gene (Neg) Stl C.difficile Tox A&B (Negative) COVID-19 Eval Order SARS-CoV-2 (PCR) (Negative) Hepatitis C Ab Screen (Neg) 12/05/20 12/05/20 12/05/20 Range/Units 11:57 16:50 20:41 WBC (4.8-10.8) K/uL RBC (4.2-5.4) M/uL Hgb (12.0-16.0) g/dL Hct (37-47) % MCV (80-100) fL MCH (25-34) pg MCHC (32-36) g/dL RDW Std Deviation (36.4-46.3) fL RDW Coeff of Yariel (11.5-14.5) % Plt Count (130-400) K/uL MPV (7.4-10.4) fL Immature Gran % (Auto) % Neut % (Auto) % Lymph % (Auto) % [place] % (Auto) % Eos % (Auto) % Baso % (Auto) % Neut # (Auto) (1.4-6.5) K/uL Lymph # (Auto) (1.2-3.4) K/uL [place] # (Auto) (0.11-0.59) K/uL Eos # (Auto) (0-0.5) K/uL Baso # (Auto) (0-0.2) K/uL Immature Gran # (Auto) (0.00-0.02) K/uL PT (9.0-12.0) Seconds INR (0.9-1.1) APTT (21.0-31.0) Seconds PTT Ratio Sodium (136-145) mmol/L Potassium (3.5-5.1) mmol/L Chloride (98-107) mmol/L Carbon Dioxide (21-32) mmol/L Anion Gap (3-11) BUN (7-18) mg/dl Creatinine (0.6-1.2) mg/dl Est Cr Clr Drug Dosing ml/min Est GFR ( Amer) ml/min Est GFR (Non-Af Amer) ml/min BUN/Creatinine Ratio (10-20) Glucose (70-99) mg/dl POC Glucose 185 H 141 H 157 H (70-99) mg/dl Calcium (8.5-10.1) mg/dl Magnesium (1.8-2.4) mg/dl Total Bilirubin (0.2-1) mg/dl AST (15-37) U/L ALT (12-78) U/L Alkaline Phosphatase (45-117) U/L Total Protein (6.4-8.2) gm/dl Albumin (3.4-5.0) gm/dl Globulin (2.5-4.0) gm/dl Albumin/Globulin Ratio (0.9-2) Lipase (73-393) U/L Urine Color Urine Appearance (Clear) Urine pH (4.5-7.5) Ur Specific [place] (1.000-1.030) Urine Protein (Negative) Urine Glucose (UA) (Negative) Urine Ketones (Negative) Urine Blood (Negative) Urine Nitrite (Negative) Urine Bilirubin (Negative) Urine Urobilinogen (Negative) Ur Leukocyte Esterase (Negative) Urine WBC (Auto) (0-5) /hpf Urine RBC (Auto) (0-4) /hpf U Hyaline Cast (Auto) (0-5) /lpf U Epithel Cells (Auto) (0-5) /lpf Urine Bacteria (Auto) (Negative) Stl C. diff Tox B Gene (Neg) Stl C.difficile Tox A&B (Negative) COVID-19 Eval Order SARS-CoV-2 (PCR) (Negative) Hepatitis C Ab Screen (Neg) 12/05/20 12/06/20 Range/Units 22:42 07:21 WBC 21.36 H (4.8-10.8) K/uL RBC 4.89 (4.2-5.4) M/uL Hgb 14.2 (12.0-16.0) g/dL Hct 43.2 (37-47) % MCV 88.3 (80-100) fL MCH 29.0 (25-34) pg MCHC 32.9 (32-36) g/dL RDW Std Deviation 46.7 H (36.4-46.3) fL RDW Coeff of Yariel 14.3 (11.5-14.5) % Plt Count 525 H D (130-400) K/uL MPV 9.5 (7.4-10.4) fL Immature Gran % (Auto) % Neut % (Auto) % Lymph % (Auto) % [place] % (Auto) % Eos % (Auto) % Baso % (Auto) % Neut # (Auto) (1.4-6.5) K/uL Lymph # (Auto) (1.2-3.4) K/uL [place] # (Auto) (0.11-0.59) K/uL Eos # (Auto) (0-0.5) K/uL Baso # (Auto) (0-0.2) K/uL Immature Gran # (Auto) (0.00-0.02) K/uL PT (9.0-12.0) Seconds INR (0.9-1.1) APTT (21.0-31.0) Seconds PTT Ratio Sodium (136-145) mmol/L Potassium (3.5-5.1) mmol/L Chloride (98-107) mmol/L Carbon Dioxide (21-32) mmol/L Anion Gap (3-11) BUN (7-18) mg/dl Creatinine (0.6-1.2) mg/dl Est Cr Clr Drug Dosing ml/min Est GFR ( Amer) ml/min Est GFR (Non-Af Amer) ml/min BUN/Creatinine Ratio (10-20) Glucose (70-99) mg/dl POC Glucose (70-99) mg/dl Calcium (8.5-10.1) mg/dl Magnesium (1.8-2.4) mg/dl Total Bilirubin (0.2-1) mg/dl AST (15-37) U/L ALT (12-78) U/L Alkaline Phosphatase (45-117) U/L Total Protein (6.4-8.2) gm/dl Albumin (3.4-5.0) gm/dl Globulin (2.5-4.0) gm/dl Albumin/Globulin Ratio (0.9-2) Lipase (73-393) U/L Urine Color Urine Appearance (Clear) Urine pH (4.5-7.5) Ur Specific [place] (1.000-1.030) Urine Protein (Negative) Urine Glucose (UA) (Negative) Urine Ketones (Negative) Urine Blood (Negative) Urine Nitrite (Negative) Urine Bilirubin (Negative) Urine Urobilinogen (Negative) Ur Leukocyte Esterase (Negative) Urine WBC (Auto) (0-5) /hpf Urine RBC (Auto) (0-4) /hpf U Hyaline Cast (Auto) (0-5) /lpf U Epithel Cells (Auto) (0-5) /lpf Urine Bacteria (Auto) (Negative) Stl C. diff Tox B Gene Positive Cdiff Gene H (Neg) Stl C.difficile Tox A&B Positive Cdiff Toxin A* (Negative) COVID-19 Eval Order SARS-CoV-2 (PCR) (Negative) Hepatitis C Ab Screen (Neg)
[2020-12-06 08:02] LABS: BUN Creatinine Ratio 20.2 (10-20); Calcium 8.7 mg/dl (8.5-10.1); Creatinine Clr Calc Pharmacy 40.4 ml/min; Est GFR (Non-African American) 41.4 ml/min; Magnesium 2.1 mg/dl (1.8-2.4); Potassium 3.5 mmol/L (3.5-5.1)
[2020-12-06 08:06] LABS: INR 6.8 (0.9-1.1)
[2020-12-06] MEDS: FOLIC ACID 1 MG TAB PO SCH (08:41)
[2020-12-06] MEDS: CYANOCOBALAMIN (VITAMIN B-12) 100 MCG TABLET PO SCH (08:41)
[2020-12-06] MEDS: LACTOBACILLUS ACIDOPHILUS 1 GM PACK PO SCH ×4 (08:41→17:39)
[2020-12-06] MEDS: amLODIPine BESYLATE 5 MG TAB PO SCH (08:42)
[2020-12-06] MEDS: METOPROLOL SUCC 25MG EXT REL TAB PO SCH (08:42)
[2020-12-06] MEDS: UMECLIDINIUM/VILANTEROL 62.5/25MCG 7 PUFFS/INHALER INH SCH (08:42)
[2020-12-06] MEDS: ESCITALOPRAM OXALATE 10 MG TAB PO SCH (08:42)
[2020-12-06] MEDS: INSULIN ASPART 100 UNITS/ML 3 ML PEN SC SCH ×4 (08:45→21:48)
[2020-12-06] MEDS: INSULIN GLARGINE SOLOSTAR 100 UNITS/ML 3 ML PEN SC SCH ×2 (08:46→21:48)
[2020-12-06] MEDS ORDERED: BUMETANIDE 1 MG TAB PO SCH (09:00)
[2020-12-06] MEDS: PANTOprazole 40 MG TAB PO SCH ×2 (09:12→21:47)
[2020-12-06] MEDS: FIDAXOMICIN 200 MG TAB PO SCH ×2 (09:12→21:47)
[2020-12-06] MEDS: traMADol HCL 50 MG TABLET PO PRN (14:50)
[2020-12-06] MEDS ORDERED: WARFARIN SOD 5 MG TAB PO SCH (16:00)
--- NOTE | 2020-12-06 18:40 | Hospitalist Progress Note ---
Date of Service December 06, 2020 Assessment & Plan (1) Colitis: Plan: C diff Pancolitis CT ABD:Findings are consistent with a nonspecific pancolitis. This is likely on an infectious or inflammatory basis and clinical correlation will be required. Stool for C diff: positive Received gentle IV fluids Discontinued ciprofloxacin, Flagyl Started on Dificid Day #1/10 Tolerates diet Appreciate GI input (2) Back pain: Plan: -Lumbar/Thoracic CT:No acute fracture or subluxation. Degenerative changes above. No suspicious bone lesions or endplate erosions. -Cervical CT:No acute cervical spine fracture or subluxation. Degenerative changes -Pain control PT/OT (3) Weakness: Plan: Due to comorbidities PT/OT (4) Adnexal mass: Plan: -CT ABD/pelvis:There is a 5.2 cm complex lesion seen in the right adnexa, likely related to the right ovary. This abnormal finding, and ovarian neoplasm is to be excluded. Follow-up with a nonemergent pelvic ultrasound and gynecology assessment is recommended. -Pelvic USD:Complex cystic appearance of the right ovary with nonvisualization of normal ovarian tissue , might represent cystic neoplasm which measures less than 7 cm in size. Further evaluation with MRI of the pelvis or short-term ultrasound follow-up is suggested. -Appreciate Gynecology Input MRI pelvis pending Needs follow-up with gynecology as outpatient Tumor markers pending (5) Chronic diastolic CHF (congestive heart failure): Plan: Chronic Bilateral Pleural Effusion Chronic oxygen dependency Non compliance with diuretic use -Monitor volume status closely Resume home diuretics as able Continue supplemental oxygen (6) Chronic respiratory failure with hypoxia: Plan: As above (7) Moderate COPD (chronic obstructive pulmonary disease): Plan: -No signs of acute exacerbation -Continue home inhalers (8) DM type 2 (diabetes mellitus, type 2): Plan: -Hgb A1c 5.6 09/2020 -Continue Insulin therapy Monitor BGs (9) Hypertension: Plan: -BP stable Continue amlodipine and metoprolol (10) ALL (acute lymphoblastic leukemia): Plan: -Continue Sprycel (11) Pulmonary embolism: Plan: Subtherapeutic INR on presentation Currently is supratherapeutic Monitor INR 1.3> 6.8 Hold Coumadin (12) DVT prophylaxis: Plan: -On Coumadin--held SCDs Admission and Anticipated Discharge Date Admission Date: December 05, 2020 Subjective Patient is seen and examined at bedside States feeling better today No diarrhea this morning Eager to get discharged Back/neck pain improved Denies nausea, vomiting, abdominal pain, chest pain, dyspnea Review of Systems Review of Systems: All systems reviewed & are unremarkable except as noted in Subjective Physical Exam Physical Exam: Physical Exam: Vitals signs as noted above General Appearance:Moderately built and nourished, no apparent distress Head: normocephalic, Atraumatic Eyes: normal inspection, EOMI Neck: supple, Trachea midline Respiratory/Chest: Decreased breath sounds at bases, No accessory muscle use Cardiovascular: S1, S2, ? murmur Abdomen/GI:Soft, Non tender, Bowel sounds present Extremities/Musculoskeletal:normal inspection, no edema Neurologic/Psych:AAOX3, grossly no focal neurological deficits Skin: normal color, warm Results & Data Results & Data ([facility]) Vital Signs (Past 12 Hours) Vital Signs Temp Pulse Resp BP Pulse Ox 12/06/20 15:51 36.6 C 74 20 103/60 95 Laboratory Results Short CBC 12/06/20 Range/Units 07:21 WBC 21.36 H (4.8-10.8) K/uL Hgb 14.2 (12.0-16.0) g/dL Hct 43.2 (37-47) % Plt Count 525 H D (130-400) K/uL BMP 12/06/20 07:21 Sodium 135 L Potassium 3.5 D Chloride 99 Carbon Dioxide 30 BUN 26 H Creatinine 1.28 H D Glucose 131 H Calcium 8.7 (1) Pulmonary embolism Pulmonary embolism type: saddle Chronicity: unspecified Acute cor pulmonale presence: without acute cor pulmonale Qualified Code(s): I26.92 - Saddle embolus of pulmonary artery without acute cor pulmonale
[2020-12-06] MEDS ORDERED: GADOBUTROL 65ML VIAL IV ONE (19:42)
[2020-12-06] MEDS: ATORVASTATIN 40 MG TAB PO SCH (21:47)
--- NOTE | 2020-12-06 22:17 | Magnetic Resonance Report ---
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 Motion degraded study. Co lonic diverticulosis. Small volume of pelvic ascites with wall thickening involving the rectum and im aged colon redemonstrated. Colonic diverticulosis. Mild urinary bladder wall thickening with partial distention. Unremarkable soft tissues and bony structures. Mild osteoarthritis of the hips. Discogeni c degeneration of the lumbar spine. The endometrium measures up to 6 mm. 6 foci of the cervix suggestive of nabothian cysts. Mild fluid w ithin the endocervical canal. No uterine lesion identified. The left ovary measures 1.3 x 1.6 x 1.5 c m demonstrates 2 T2 hyperintense cystic foci measuring up to 8 mm, statistically benign. Right adnexa l lesion measures 4.7 x 3.3 x 3.2 cm. Normal right ovary is not identified. This lesion demonstrates mixed signal with peripheral decreased T2 signal. Multilocular cystic components are present, largest of which measures up to 3.3 cm which is T1 hyperintense. No definite enhancement identified, however the study is degraded by motion artifact. IMPRESSION: 1. Complex multicystic right adnexal lesion measures up to 4.7 cm, the largest cystic component is T1 hyperintense suggestive of internal hemorrhage. No definite enhancement identified. An epithelial ov beverly neoplasm is the diagnosis of exclusion. Gynecologic surgical consultation is recommended. 2. The endometrium is mildly thickened at 6 mm which is considered pathologic in a postmenopausal pat ient. 3. Pancolitis with small volume of pelvic ascites redemonstrated. 4. Colonic diverticulosis. ACT 112: Negative or not required by law. The above report was generated using voice recognition software. It may contain grammatical, syntax o r spelling errors. Electronically signed by: Stanford Lynn M.D. 12/06/2020 10:15 PM
[2020-12-07 07:44] LABS: Prothrombin Time 53.4 Seconds (9.0-12.0)
[2020-12-07 07:53] LABS: INR 6.1 (0.9-1.1)
[2020-12-07 08:04] LABS: Creatinine Clr Calc Pharmacy 51.2 ml/min; Est GFR (Non-African American) 55.2 ml/min; Magnesium 1.7 mg/dl (1.8-2.4); Potassium 3.4 mmol/L (3.5-5.1)
[2020-12-07 08:16] LABS: Hematocrit (blood only) 35.7 % (37-47); Hemoglobin 11.3 g/dL (12.0-16.0); Mean Corpuscular Hemoglobin 28.1 pg (25-34); Mean Corpuscular Hgb Conc 31.7 g/dL (32-36); Mean Corpuscular Volume 88.8 fL (80-100); Mean Platelet Volume 8.9 fL (7.4-10.4); Platelet Count 373 K/uL (130-400); RDW Coefficient of Variation 14.3 % (11.5-14.5); RDW Standard Deviation 47.2 fL (36.4-46.3); Red Blood Count 4.02 M/uL (4.2-5.4); White Blood Count 14.01 K/uL (4.8-10.8)
[2020-12-07] MEDS: LACTOBACILLUS ACIDOPHILUS 1 GM PACK PO SCH ×2 (08:50→12:46)
[2020-12-07] MEDS: amLODIPine BESYLATE 5 MG TAB PO SCH (08:51)
[2020-12-07] MEDS: FOLIC ACID 1 MG TAB PO SCH (08:51)
[2020-12-07] MEDS: FERROUS SULFATE 325 MG TAB PO SCH (08:51)
[2020-12-07] MEDS: METOPROLOL SUCC 25MG EXT REL TAB PO SCH (08:51)
[2020-12-07] MEDS: ESCITALOPRAM OXALATE 10 MG TAB PO SCH (08:51)
[2020-12-07] MEDS: PANTOprazole 40 MG TAB PO SCH (08:51)
[2020-12-07] MEDS: CYANOCOBALAMIN (VITAMIN B-12) 100 MCG TABLET PO SCH (08:52)
[2020-12-07] MEDS: UMECLIDINIUM/VILANTEROL 62.5/25MCG 7 PUFFS/INHALER INH SCH (08:53)
[2020-12-07] MEDS: FIDAXOMICIN 200 MG TAB PO SCH (08:56)
[2020-12-07] MEDS: traMADol HCL 50 MG TABLET PO PRN (09:02)
[2020-12-07] MEDS: INSULIN GLARGINE SOLOSTAR 100 UNITS/ML 3 ML PEN SC SCH (09:03)
[2020-12-07] MEDS: INSULIN ASPART 100 UNITS/ML 3 ML PEN SC SCH ×2 (09:04→12:46)
[2020-12-07] MEDS ORDERED: MAGNESIUM SULFATE / D5W 1 GM/100 ML BAG IV ONE (09:08)
[2020-12-07] MEDS ORDERED: POTASSIUM CHLORIDE CRTAB 20 MEQ TABCR PO ONE (09:09)
--- NOTE | 2020-12-07 13:43 | Hospitalist Progress Note ---
Date of Service December 07, 2020 Assessment & Plan (1) Colitis: Plan: C diff Pancolitis CT ABD:Findings are consistent with a nonspecific pancolitis. This is likely on an infectious or inflammatory basis and clinical correlation will be required. Stool for C diff: positive Received gentle IV fluids Discontinued ciprofloxacin, Flagyl Continue Dificid Day #2/10 Tolerates diet Appreciate GI input Plan transition to PO Vancomycin due to Insurance issues (2) Back pain: Plan: -Lumbar/Thoracic CT:No acute fracture or subluxation. Degenerative changes above. No suspicious bone lesions or endplate erosions. -Cervical CT:No acute cervical spine fracture or subluxation. Degenerative changes -Pain control PT/OT: Recommends to return home (3) Weakness: Plan: Due to comorbidities PT/OT:Recommends to return home (4) Adnexal mass: Plan: DD:Ovarian Malignancy Suspected Ovarian Cystic internal hemorrhage Vs Debris --Incidental finding on MRI -CT ABD/pelvis:There is a 5.2 cm complex lesion seen in the right adnexa, likely related to the right ovary. This abnormal finding, and ovarian neoplasm is to be excluded. Follow-up with a nonemergent pelvic ultrasound and gynecology assessment is recommended. -Pelvic USD:Complex cystic appearance of the right ovary with nonvisualization of normal ovarian tissue , might represent cystic neoplasm which measures less than 7 cm in size. Further evaluation with MRI of the pelvis or short-term ultrasound follow-up is suggested. --MRI pelvis:Complex multicystic right adnexal lesion measures up to 4.7 cm, the largest cystic component is T1 hyperintense suggestive of internal hemorrhage. No definite enhancement identified. An epithelial ovarian neoplasm is the diagnosis of exclusion. Gynecologic surgical consultation is recommended. The endometrium is mildly thickened at 6 mm which is considered pathologic in a postmenopausal patient. Pancolitis with small volume of pelvic ascites redemonstrated. Colonic diverticulosis. ---Appreciate Gynecology Input --No contraindication for anticoagulation for PE as per OBGYN (Discussed with on 12/07/20) --Needs follow-up with gynecology/Oncology as outpatient Tumor markers pending (5) Chronic diastolic CHF (congestive heart failure): Plan: Chronic Bilateral Pleural Effusion Chronic oxygen dependency Non compliance with diuretic use -Monitor volume status closely Resume home diuretics Continue supplemental oxygen (6) Chronic respiratory failure with hypoxia: Plan: As above (7) Moderate COPD (chronic obstructive pulmonary disease): Plan: -No signs of acute exacerbation -Continue home inhalers (8) DM type 2 (diabetes mellitus, type 2): Plan: -Hgb A1c 5.6 09/2020 -Continue Insulin therapy Monitor BGs (9) Hypertension: Plan: -BP stable Continue amlodipine and metoprolol (10) ALL (acute lymphoblastic leukemia): Plan: -Continue Sprycel (11) Pulmonary embolism: Plan: Subtherapeutic INR on presentation Currently is supratherapeutic Monitor INR 1.3> 6.8>6.1 Hold Coumadin for 2 days Advised to follow up with Coumadin Clinic upon discharge (12) DVT prophylaxis: Plan: -On Coumadin--held SCDs Admission and Anticipated Discharge Date Admission Date: December 05, 2020 Subjective Patient is seen and examined at bedside Denies diarrhea, abd pain, nausea, vomiting, chest pain, dyspnea No complaints Eager to get discharged INR elevated Denies any bleeding issues Review of Systems Review of Systems: All systems reviewed & are unremarkable except as noted in Subjective Physical Exam Physical Exam: Physical Exam: Vitals signs as noted above General Appearance:Moderately built and nourished, no apparent distress Head: normocephalic, Atraumatic Eyes: normal inspection, EOMI Neck: supple, Trachea midline Respiratory/Chest: Decreased breath sounds at bases, No accessory muscle use Cardiovascular: S1, S2, ? murmur Abdomen/GI:Soft, Non tender, Bowel sounds present Extremities/Musculoskeletal:normal inspection, no edema Neurologic/Psych:AAOX3, grossly no focal neurological deficits Skin: normal color, warm Results & Data Results & Data ([facility]) Vital Signs (Past 12 Hours) Vital Signs Temp Pulse Resp BP Pulse Ox 12/07/20 08:06 36.7 C 74 18 134/68 90 Laboratory Results Short CBC 12/07/20 Range/Units 06:57 WBC 14.01 H (4.8-10.8) K/uL Hgb 11.3 L (12.0-16.0) g/dL Hct 35.7 L (37-47) % Plt Count 373 (130-400) K/uL BMP 12/07/20 06:57 Sodium 139 Potassium 3.4 L Chloride 104 Carbon Dioxide 32 BUN 24 H Creatinine 1.01 Glucose 60 L Calcium 8.0 L (1) Pulmonary embolism Pulmonary embolism type: saddle Chronicity: unspecified Acute cor pulmonale presence: without acute cor pulmonale Qualified Code(s): I26.92 - Saddle embolus of pulmonary artery without acute cor pulmonale
--- NOTE | 2020-12-07 14:14 | Obstetrical Progress Note ---
Date of Service December 07, 2020 Assessment & Plan Admission and Anticipated Discharge Date Admission Date: December 05, 2020 Subjective Patient is seen and discussed the results of MRI. 1.Complex multicystic right adnexal lesion measures up to 4.7 cm, the largest cystic component is T1 hyperintense suggestive of internal hemorrhage. No definite enhancement identified. An epithelial ovarian neoplasm is the diagnosis of exclusion. Gynecologic surgical consultation is recommended. 2. The endometrium is mildly thickened at 6 mm which is considered pathologic in a postmenopausal patient. Markers are pending. Patient is ready to be discharge. Recommended [facility] oncology referral for pathologic diagnosis and possible staging as needed. I will place the orders for [facility] [employer] oncology at [facility] in [facility]. They will give her a call with the appointment. Patient is aware above all and agrees with plan. All questions were answered. Results & Data ([facility]) Vital Signs (Past 12 Hours) Vital Signs Temp Pulse Resp BP Pulse Ox 12/07/20 08:06 36.7 C 74 18 134/68 90
--- NOTE | 2020-12-07 14:19 | Discharge Summary ---
Date of Service December 07, 2020 Admission HPI Per Admitting Provider 74-year-old female with PMH DM type II, HTN, CKD stage III, chronic hypoxic respiratory failure, COPD, ALL, and other problems listed below who presents the ED for evaluation of back pain and generalized weakness. Patient reports ongoing back pain for the past 3 months. Patient reports she experiences pain from her neck down to her waist. She reports that she feels generally weak and can usually only ambulate a few steps to go to the bathroom. Today, patient was noted to have a fever by home health nursing. She was sent to the ED for further evaluation. Patient denies any loss of bowel or bladder function. Denies chest pain or shortness of breath. No lightheadedness, dizziness, diaphoresis, syncopal events. Denies abdominal pain, nausea, vomiting. Reports chronic diarrhea which is unchanged from baseline. No bright red bleeding per rectum or dark tarry stools. She denies chills. No urinary symptoms. In the ED, patient is hemodynamically stable. Labs show WBC 18K, K+ 3.1. UA does not suggest infection. Patient had extensive CTs completed that were negative for acute bony abnormality. CT ABD/pelvis shows signs of nonspecific colitis and also right adnexal mass. Patient was given IV Tylenol, IV dexamethasone, IV morphine x 2 doses, IV Zofran, potassium replacement, IVF. Admission Exam Per Admitting Provider Physical Exam Constitutional: WD/WN, vitals as above + ill appearing (Chronically) Eyes: PERRL, conjunctivae normal, anicteric sclerae ENMT: external ear and nose normal, oropharynx normal Respiratory: normal respiratory effort, lungs clear to auscultation Cardiovascular: Rate/Rhythm: regular rate and regular rhythm Vessels: normal peripheral pulses Extremities: no edema Gastrointestinal (Abdomen): normal bowel sounds, soft, nontender, no hepatosplenomegaly Musculoskeletal: no cyanosis or clubbing, extremities motor strength 5/5 Skin: no rashes, warm and dry Neurologic: PERRL, EOMI, accommodation nl, no face palsy, no dysarthria Psychiatric: A+Ox3, euthymic affect Principal Diagnosis Clostridium difficile pancolitis Ovarian mass Supratherapeutic INR Discharge Data Allergies Allergy/AdvReac Type Severity Reaction Status Date / Time No Known Allergies Allergy Verified 12/04/20 14:10 Consultations 12/04/20 17:57 ED Decision to Admit Stat 12/04/20 21:59 Consult Gynecology Routine 12/05/20 13:23 Consult Gastroenterology Routine Ordered Studies 12/04/20 15:01 CT abd pelvis IV con only Stat 12/04/20 15:04 CT cervical spine w con Stat CT chest diagnostic w con Stat CT lumbar spine w con Stat CT thoracic spine w con Stat 12/04/20 18:50 US pelvic complete Routine 12/06/20 07:49 MR pelvis wo/w con Routine Hospital Course (1) Colitis: C diff Pancolitis CT ABD:Findings are consistent with a nonspecific pancolitis. This is likely on an infectious or inflammatory basis and clinical correlation will be required. Stool for C diff: positive Received gentle IV fluids Discontinued ciprofloxacin, Flagyl Continue Dificid Day #2/10 Tolerates diet Appreciate GI input Plan transition to PO Vancomycin due to Insurance issues (2) Back pain: -Lumbar/Thoracic CT:No acute fracture or subluxation. Degenerative changes above. No suspicious bone lesions or endplate erosions. -Cervical CT:No acute cervical spine fracture or subluxation. Degenerative changes -Pain control PT/OT: Recommends to return home (3) Weakness: Due to comorbidities PT/OT:Recommends to return home (4) Adnexal mass: DD:Ovarian Malignancy Suspected Ovarian Cystic internal hemorrhage Vs Debris --Incidental finding on MRI -CT ABD/pelvis:There is a 5.2 cm complex lesion seen in the right adnexa, likely related to the right ovary. This abnormal finding, and ovarian neoplasm is to be excluded. Follow-up with a nonemergent pelvic ultrasound and gynecology assessment is recommended. -Pelvic USD:Complex cystic appearance of the right ovary with nonvisualization of normal ovarian tissue , might represent cystic neoplasm which measures less than 7 cm in size. Further evaluation with MRI of the pelvis or short-term ultrasound follow-up is suggested. --MRI pelvis:Complex multicystic right adnexal lesion measures up to 4.7 cm, the largest cystic component is T1 hyperintense suggestive of internal hemorrhage. No definite enhancement identified. An epithelial ovarian neoplasm is the diagnosis of exclusion. Gynecologic surgical consultation is recommended. The endometrium is mildly thickened at 6 mm which is considered pathologic in a postmenopausal patient. Pancolitis with small volume of pelvic ascites redemonstrated. Colonic diverticulosis. ---Appreciate Gynecology Input --No contraindication for anticoagulation for PE as per OBGYN (Discussed with on 12/07/20) --Needs follow-up with gynecology/Oncology as outpatient Tumor markers pending (5) Chronic diastolic CHF (congestive heart failure): Chronic Bilateral Pleural Effusion Chronic oxygen dependency Non compliance with diuretic use -Monitor volume status closely Resume home diuretics Continue supplemental oxygen (6) Chronic respiratory failure with hypoxia: As above (7) Moderate COPD (chronic obstructive pulmonary disease): -No signs of acute exacerbation -Continue home inhalers (8) DM type 2 (diabetes mellitus, type 2): -Hgb A1c 5.6 09/2020 -Continue Insulin therapy Monitor BGs (9) Hypertension: -BP stable Continue amlodipine and metoprolol (10) ALL (acute lymphoblastic leukemia): -Continue Sprycel (11) Pulmonary embolism: Subtherapeutic INR on presentation Currently is supratherapeutic Monitor INR 1.3> 6.8>6.1 Hold Coumadin for 2 days Advised to follow up with Coumadin Clinic upon discharge (12) DVT prophylaxis: -On Coumadin--held SCDs Total Time Total Time Spent Total Time Spent (In Minutes): 44 minutes Discharge Plan Discharge Items Patient Disposition: Home - Self-Care Reason For Visit: COLITIS, WEAKENSS, BACK PAIN Discharge Diagnosis: Clostridium difficile pancolitis Ovarian mass Supratherapeutic INR Activity: Per Instructions section Exercise/Sports: Wait until after follow-up appointment Non-emergency contact: Primary Care Provider and Agricultural Education Teacher Call non-emergency contact if: you have any medication questions, your symptoms worsen, your pain is concerning for you and you have a fever Follow-up/Referrals: Natalia Brambila DO [Primary Care Provider] - Diet: Carb Consistent or DM2 and Lactose Intolerant Addtl Attending Provider Instructions: --Follow-up with for Primary Care on Nov AT 12:00 pm --Follow up with your pelletizer operator Mateo Perez in 2-3 weeks as advised --Follow up with coumadin clinic on 12/08/20 for further management of Coumadin dose and monitoring PT/INR DO NOT TAKE COUMADIN TODAY AND TOMORROW (12/07/20 AND 12/08/20) Get blood test PT/INR on 12/09/20 and follow up with coumadin clinic for further instructions Your Blood test (Tumor makers ) are pending at the time of discharge. Follow- up with your physician for results. Complete the antibiotic course (Vancomycin) as prescribed. Discuss with your primary care physician for further adjustment of insulin therapy for management of diabetes mellitus as required. Seek immediate medical attention if your symptoms reoccur or worsen Please take all medications as instructed on discharge list below. Please call if you have any questions or problems. You can reach a [facility] hospitalist on duty at [facility] 24 hours a day by calling [phone] Pending Studies at Discharge: Yes Studies:: Tumor markers Stand-Alone Forms: My [facility] [employer], Smoking Cessation Medications and DC Order Prescriptions: New magnesium chloride [Mag 64] 64 mg Tablet,Delayed Release (Dr/Ec) 64 mg PO BID Qty: 30 RF: 0 vancomycin 125 mg capsule 125 mg PO Q6H 12 Days Qty: 48 RF: 0 Continued tramadol 50 mg Tablet 50 mg PO Q6H PRN (Reason: Pain) RF: 0 Sprycel 70 mg Tablet 70 mg PO BID RF: 0 ipratropium-albuterol 0.5 mg-3 mg(2.5 mg base)/3 mL Solution For Nebulization 3 ml INHALATION BID RF: 0 lorazepam 0.5 mg Tablet 0.5 mg SUBLINGUAL BID PRN (Reason: Anxiety) RF: 0 metoprolol succinate 25 mg Tablet Extended Release 24 Hr 25 mg PO DAILY RF: 0 atorvastatin 40 mg Tablet 40 mg PO PM RF: 0 bumetanide 1 mg Tablet 1 mg PO DAILY RF: 0 Levemir FlexTouch U-100 Insuln 100 unit/mL (3 mL) Insulin Pen 14 unit subcut USEASDIRECTD RF: 0 potassium chloride 20 mEq Tablet Extended Release 20 meq PO DAILY RF: 0 Probiotic 10 billion cell Capsule 10,000 mmu cells PO DAILY RF: 0 omeprazole 20 mg Capsule,Delayed Release(Dr/Ec) 20 mg PO BID RF: 0 cyanocobalamin (vitamin B-12) 100 mcg Tablet 100 mcg PO DAILY RF: 0 folic acid 1 mg Tablet 1 mg PO DAILY RF: 0 triamcinolone acetonide 0.1 % cream 1 applic TOPICAL BID RF: 0 escitalopram oxalate 10 mg tablet 10 mg PO DAILY RF: 0 Anoro Ellipta 62.5-25 mcg/actuation blister with device 1 inh INHALATION DAILY RF: 0 amlodipine [Norvasc] 5 mg Tablet 10 mg PO DAILY Qty: 30 RF: 0 ferrous sulfate 325 mg (65 mg iron) tablet 325 mg PO Q2D RF: 0 warfarin 5 mg tablet 7.5 mg PO MOFR RF: 0 warfarin 5 mg tablet 5 mg PO SUTUWETHSA RF: 0 Discharge Orders: Discharge Order (Routine); Ordered 12/07/20 Ordered By: Fermin Rojo Admission Data Admit Date/Time: 12/05/20 14:21 Attending Provider: Fermin Rojo Admit Provider: Nicholas Gray Primary Care Provider: Natalia Brambila Other Providers: Nicholas Gray ; Mateo Wright ; Susan Hammer Other Interventions: Discharge Summary Assessment (RN) Last Done: 12/07/20 14:30
[2020-12-07] MEDS ORDERED: MAGNESIUM CHLORIDE 64MG DELAYED REL TAB PO SCH (21:00)
[2020-12-07] MEDS ORDERED: INSULIN GLARGINE SOLOSTAR 100 UNITS/ML 3 ML PEN SC SCH (21:00)
[2020-12-08 14:00] LABS: AFP Tumor Marker Serum 1.4 ng/mL
[2020-12-08] MEDS ORDERED: WARFARIN SOD 7.5 MG TAB PO SCH (16:00)
== END 2020-12-07 16:23 | disposition home or self-care (01) | DRG 385 ==
LOC: ED 11:43 → 3E 11:43 → SUATTDRO 18:47 → 3E 21:32
DX: J96.10 Chronic respiratory failure, unspecified whether with hypoxia or hypercapnia; C91.90 Lymphoid leukemia, unspecified not having achieved remission; K51.00 Ulcerative (chronic) pancolitis without complications; Z66 Do not resuscitate; Z79.01 Long term (current) use of anticoagulants; E87.1 Hypo-osmolality and hyponatremia; Z99.81 Dependence on supplemental oxygen; K52.9 Noninfective gastroenteritis and colitis, unspecified; I13.0 Hypertensive heart and chronic kidney disease with heart failure and stage 1 through stage 4 chronic kidney disease, or unspecified chronic kidney disease; I50.32 Chronic diastolic (congestive) heart failure; C56.1 Malignant neoplasm of right ovary; E11.22 Type 2 diabetes mellitus with diabetic chronic kidney disease; Z79.4 Long term (current) use of insulin; N25.81 Secondary hyperparathyroidism of renal origin; N18.30 Chronic kidney disease, stage 3 unspecified; I26.92 Saddle embolus of pulmonary artery without acute cor pulmonale; E87.6 Hypokalemia; E78.5 Hyperlipidemia, unspecified; J44.9 Chronic obstructive pulmonary disease, unspecified; Z87.891 Personal history of nicotine dependence; K21.9 Gastro-esophageal reflux disease without esophagitis